=== PATIENT | female | born 1945 | race Caucasian/White ===

== ENCOUNTER 2019-12-23 06:42 | Observation (INO) ==
--- NOTE | 2019-11-20 15:22 | PAT Medication Instructions ---
Medication Instructions Date of Service November 20, 2019 Home Medications acetaminophen 1,000 mg PO HS PRN ascorbic acid (vitamin C) [Vitamin C] 500 mg PO QAM atorvastatin 20 mg PO QAM calcium carbonate [Tums] 200 mg PO BID PRN calcium carbonate-vitamin D3 [Calcium 600 + D(3)] 2 cap PO QAM cholecalciferol (vitamin D3) [Vitamin D3] 250 mcg PO QAM ibuprofen 600 mg PO QAM PRN multivitamin 1 tab PO QAM vitamin E 400 unit PO QAM ASK your surgeon for instructions ibuprofen 600 mg PO QAM PRN STOP taking 2 weeks before surgery (or as soon as possible if surgery is within 2 weeks) vitamin E 400 unit PO QAM DO NOT take the morning of surgery ascorbic acid (vitamin C) [Vitamin C] 500 mg PO QAM calcium carbonate [Tums] 200 mg PO BID PRN calcium carbonate-vitamin D3 [Calcium 600 + D(3)] 2 cap PO QAM cholecalciferol (vitamin D3) [Vitamin D3] 250 mcg PO QAM multivitamin 1 tab PO QAM Take morning of surgery With a small sip of water, OTHERWISE NOTHING TO EAT OR DRINK AFTER MIDNIGHT: atorvastatin 20 mg PO QAM Take evening before surgery acetaminophen 1,000 mg PO HS PRN (if needed) calcium carbonate [Tums] 200 mg PO BID PRN (if needed) Other Notes If you have any questions please call us at [phone] or [phone] or [phone] or [phone]
--- NOTE | 2019-11-24 08:19 | Anesthesiology Consultation ---
Date of Service November 24, 2019 Assessment & Plan (1) Encounter for pre-operative examination: Chart Review Chart Review: Acceptable Risk for Surgery (pending preop Covid testing ) and Patient seen in Pre Admission Testing Per PAT appt on 11/24/19, patient denies any recent travel. No known Covid positive contacts or Covid related symptoms. Per patient- scheduled 12/18/19 for Covid testing. Educated on importance of self quarantining, social distancing and wearing mask in public both for the patient and household contacts. Teaching & Discussion Pre-Anesthesia Teaching/Discussion Notes: Instructed NPO after midnight before surgery,except medications with 15 cc of water. Medication instructions provided according to the PAT guidelines. History Surgery Operation Date: 12/23/19 12:30 Proposed Procedures p Left Total Knee Arthroplasty - Ronn Turcios MD Height/Weight Height: 5 ft 2.5 in Weight: 68 kg Allergies Allergy/AdvReac Type Severity Reaction Status Date / Time No Known Allergies Allergy Mild Verified 11/17/19 09:41 Medications Home Medications Medication Instructions Recorded Confirmed Last Taken acetaminophen 1,000 mg PO HS PRN 11/17/19 11/17/19 Unknown ascorbic acid (vitamin C) [Vitamin 500 mg PO QAM 11/17/19 11/17/19 Unknown C] atorvastatin 20 mg PO QAM 11/17/19 11/17/19 Unknown calcium carbonate [Tums] 200 mg PO BID PRN 11/17/19 11/17/19 Unknown calcium carbonate-vitamin D3 2 cap PO QAM 11/17/19 11/17/19 Unknown [Calcium 600 + D(3)] cholecalciferol (vitamin D3) 250 mcg PO QAM 11/17/19 11/17/19 Unknown [Vitamin D3] ibuprofen 600 mg PO QAM PRN 11/17/19 11/17/19 Unknown multivitamin 1 tab PO QAM 11/17/19 11/17/19 Unknown vitamin E 400 unit PO QAM 11/17/19 11/17/19 Unknown Past Medical History Medical History Elevated cholesterol Controlled with statin Sciatica Right -- follows with Dr Mandel ([place]) SVT (supraventricular tachycardia) History of SVT- s/p 2004- no issues since. Does not need to follow with cardio. Exercise / Class Metabolic Activity II 4-5 Yardwork/Stairs/Walk up hill (one flight of stairs - no chest pain or SOB) Past Family History Family History Other Coronary heart disease Diabetes Leukemia No family history of adverse response to anesthesia Past Surgical History Surgical History H/O cardiac radiofrequency ablation 2004 H/O: hysterectomy [facility] with BSO History of appendectomy S/P epidural steroid injection Past Anesthesia History No Hx of Anesthesia Complications and No Family Hx of Anesthesia Complications History of PONV No Hx of PONV and No Hx of Motion Sickness Social History Smoking Status: Never smoker Do You Dip or Chew Tobacco: No Hx Alcohol Use: Yes (1-2 drinks/day) Alcohol type: wine alcohol intake frequency: 0-2 drinks per day (1 glass of wine per night ) Hx Substance Use: No substance use type: does not use Review of Systems Occ reflux- diet dependent - relieved with OTC Tums Occ snoring- no witnessed apnea. No hx of sleep study Patient denies chest pain, shortness of breath, dyspnea on exertion, cough, wheezing, palpitations. No hx of seizures, stroke, SC. No hx of blood clots or blood transfusions Physical Exam Vital Signs VITALS BP 169/79 P 75 TEMP 98.0 SP02 95% RESP 16 Constitutional no acute distress ENMT Mouth: no TMJ clicking Thyromental Distance: < 3.5 Finger Breadths (3.0) Mallampati Class: II Crowns on molars Neck + thick neck (mild ); neck extension not limited Respiratory normal respiratory effort; no respiratory distress Auscultation: lungs clear to auscultation bilaterally; no wheezes Cardiovascular Rate/Rhythm: regular rate and regular rhythm Heart Sounds: no murmur Vessels: no carotid bruit Musculoskeletal Spine: no pain with cervical ROM Neurologic moves all extremities Psychiatric Orientation: alert Testing Laboratory Results 11/24/19 10:14 11/24/19 08:40 PT 10.9 Seconds (9.0-12.0) 11/24/19 10:14 INR 1.0 (0.9-1.1) 11/24/19 10:14 APTT 26.4 Seconds (21.0-31.0) 11/24/19 10:14 Blood Type B Positive 11/24/19 10:14 Antibody Screen NEGATIVE 11/24/19 10:14 Electrocardiogram Date: 11/24/19 Findings: + NSR @ (62) Normal EKG Chest X-Ray Date: 11/24/19 Findings: + NAD
--- NOTE | 2019-11-24 09:25 | XRay Report ---
XR chest Pre-admission PA/Lat CLINICAL HISTORY: Preoperative evaluation. COMPARISON STUDY: No previous studies for comparison. FINDINGS: Lung volumes are normal. Lungs are clear. There is no pneumothorax or pleural effusion. Car diac size is at the upper limits of normal. Mediastinal contours are normal. There is no evidence for pulmonary edema. IMPRESSION: No acute cardiopulmonary findings. ACT 112: Negative or not required by law. Electronically signed by: Caden Connolly M.D. 11/24/2019 9:23 AM
[2019-11-24 10:40] LABS: Basophils # (auto) 0.05 K/uL (0-0.2); Eosinophils # (auto) 0.06 K/uL (0-0.5); Eosinophils % (auto) 1.2 %; Hematocrit (blood only) 40.7 % (37-47); Hemoglobin 13.8 g/dL (12.0-16.0); Immature Granulocytes # (auto) 0.01 K/uL (0.00-0.02); Immature Granulocytes % (auto) 0.2 %; Lymphocytes # (auto) 1.59 K/uL (1.2-3.4); Lymphocytes % (auto) 32.3 %; Mean Corpuscular Hemoglobin 32.4 pg (25-34); Mean Corpuscular Hgb Conc 33.9 g/dL (32-36); Mean Corpuscular Volume 95.5 fL (80-100); Mean Platelet Volume 11.6 fL (7.4-10.4); Monocytes # (auto) 0.49 K/uL (0.11-0.59); Monocytes % (auto) 9.9 %; Neutrophils # (auto) 2.73 K/uL (1.4-6.5); Neutrophils % (auto) 55.4 %; Platelet Count 219 K/uL (130-400); RDW Coefficient of Variation 12.6 % (11.5-14.5); RDW Standard Deviation 43.8 fL (36.4-46.3); Red Blood Count 4.26 M/uL (4.2-5.4); White Blood Count 4.93 K/uL (4.8-10.8)
[2019-11-24 10:47] LABS: BUN Creatinine Ratio 20.2 (10-20); Calcium 9.6 mg/dl (8.5-10.1); Creatinine Clr Calc Pharmacy 66.5 ml/min; Est GFR (African American) 100.3; Est GFR (Non-African American) 86.6; Potassium 3.8 mmol/L (3.5-5.1)
[2019-11-24 11:02] LABS: Partial Thromboplastin Ratio 0.9; Partial Thromboplastin Time 26.4 Seconds (21.0-31.0); Prothrombin Time 10.9 Seconds (9.0-12.0)
--- NOTE | 2019-11-24 17:05 | Electrocardiogram Report ---
Test Reason : Blood Pressure : / mmHG Vent. Rate : 062 BPM Atrial Rate : 062 BPM P-R Int : 160 ms QRS Dur : 078 ms QT Int : 418 ms P-R-T Axes : 050 044 049 degrees QTc Int : 424 ms Normal sinus rhythm Normal ECG When compared with ECG of 22-APR-2007 10:57, No significant change was found Confirmed by Brennon Hyman ([id number]) on 11/24/2019 5:05:06 PM Referred By: Ronn Turcios Confirmed By:Christian Hyman
--- NOTE | 2019-12-20 11:21 | History and Physical Report ---
DATE OF ADMISSION: 12/23/2019 CHIEF COMPLAINT: Persistent left knee pain and discomfort. HISTORY OF PRESENT ILLNESS: A 74-year-old female who I have been following for years for left knee pain and degenerative joint disease. She has been through extensive conservative treatment over the years, which has just become less successful. Last shot did not really help her much at all. Pain is mostly medial, but some global pain. It hurts her all the time. The more she walks, the more it hurts. She cannot walk more than a couple blocks before she feels like she needs to stop and get her weight off her leg. She does have some nighttime discomfort. She now would like to have her knee fixed. PAST MEDICAL HISTORY: 1. Elevated cholesterol. 2. Low back pain/sciatica. PAST SURGICAL HISTORY: Include: 1. Hysterectomy. 2. Exploratory laparotomy. 3. Appendectomy. 4. Cardiac ablation for AFib. ALLERGIES: None. CURRENT MEDICATIONS: Include: 1. Daily vitamin. 2. Calcium. 3. Cholesterol medicine. 4. Lipitor. 5. Tylenol. 6. Advil. SOCIAL HISTORY: A 74-year-old female. She lives in [place]. Drinks 7 drinks per week. Does not smoke. FAMILY HISTORY: Noncontributory. REVIEW OF HISTORY: Negative for diabetes, neurologic problem, vascular problems or bleeding disorders. No chest pain or shortness of breath. No history of DVT or PE. Does have this history of atrial fibrillation, but had a cardiac ablation and in sinus rhythm. PHYSICAL EXAMINATION: GENERAL: Reveals a pleasant, middle-aged female. Looks to be in excellent health. HEENT: Benign. NECK: Supple, no lymphadenopathy. LUNGS: Clear to auscultation. HEART: Has a regular rate and rhythm. ABDOMEN: Soft, nontender, nondistended. EXTREMITIES: Grossly neurovascularly intact except as follows. Examination of the left knee reveals the patient walks with a slight bit of a limp. She has got varus alignment to her knee with a varus thrust with weightbearing. She has got bony hypertrophy medially. Range of motion about 5 degrees short of full extension to 120 degrees of flexion. There is no instability. No pain with hip motion. X-RAYS: X-rays of the left knee were reviewed. It shows advanced left knee DJD. She has got complete loss of medial joint space. She has got osteophytes off the medial femoral condyle and medial tibial plateau. She has a little bit of tibial femoral subluxation. Diffuse osteopenia. ASSESSMENT: A 74-year-old white female with longstanding left knee pain and degenerative joint disease. She has failed conservative treatment and would like to have her left knee replaced. PLAN: We will take her to the operating room and do a left total knee replacement. The risks and benefits of this procedure were explained to the patient including but not limited to DVT, PE, , infection, neurological injury, vascular injury, bleeding problem, pain, limited range of motion, stiffness, failure to relieve symptoms, incomplete relief of symptoms, need for further surgery in future, fracture, leg length inequality, nerve palsy, etc. The patient understands and desires to proceed. Informed consent was obtained. She has held her NSAID 2 weeks preop. She is planning using [email or web address] for therapy upon discharge.
[~2019-12-23 06:42] MED LIST: ACETAMINOPHEN 500 MG TAB PO SCH; BUPIVACAINE 0.5 % 5 MG/1 ML PF 10ML VIAL ONE; GABAPENTIN 300 MG CAP PO SCH; LR 500ML BOLUS, THEN 15ML/HR IV SCH; LR 60ML/HR IV SCH; METOCLOPRAMIDE HCL 10 MG TABLET PO SCH; TRANEXAMIC ACID 1,000 MG **IV Intra-op IV SCH; ceFAZolin 1000MG 1,000 MG/7.5 ML SYR IV SCH
--- NOTE | 2019-12-23 06:50 | History & Physical Bridge Note ---
Date of Service December 23, 2019 History & Physical Bridge Note I have examined the patient, reviewed the History & Physical and in the interval since the performance of the History & Physical I have noted the following changes of clinical significance: no changes noted
[2019-12-23] MEDS ORDERED: FAMOTIDINE 20 MG TAB ONE (07:01)
[2019-12-23] MEDS ORDERED: MIDAZOLAM HCL 1 MG/ML 2ML VIAL ONE (07:04)
[2019-12-23] MEDS ORDERED: fentaNYL citrate 100 MCG/2 ML VIAL ONE (07:04)
[2019-12-23] MEDS ORDERED: ONDANSETRON INJ 2 MG/ML 2 ML VIAL IV PRN ×2 (08:23→12:37)
[2019-12-23] MEDS ORDERED: ePHEDrine sulfate 50 MG/ML AMP IV PRN (08:23)
[2019-12-23] MEDS ORDERED: fentaNYL citrate 100 MCG/2 ML VIAL IV PRN (08:23)
[2019-12-23] MEDS ORDERED: ATROPINE SULFATE 0.1 MG/ML 10ML SYR IV PRN (08:23)
[2019-12-23] MEDS ORDERED: SODIUM CHLORIDE 0.9% PF 50 ML VIAL ONE (08:55)
[2019-12-23] MEDS ORDERED: BUPIVACAINE LIPOSOME 1.3% 266 MG/20 ML VIAL ONE (08:55)
[2019-12-23] MEDS ORDERED: BACITRACIN INJ 50,000 UNIT VIAL ONE (08:55)
[2019-12-23] MEDS ORDERED: EPINEPHrine INJ 1 MG/ML AMP ONE (08:56)
[2019-12-23] MEDS ORDERED: BUPIVACAINE 0.25% 30 ML VIAL ONE (08:56)
[2019-12-23] MEDS ORDERED: PROPOFOL IV EMULSION 10 MG/ML 20 ML VIAL IV ONE (09:30)
[2019-12-23] MEDS ORDERED: ePHEDrine sulfate 50 MG/ML AMP ONE (10:10)
--- NOTE | 2019-12-23 10:59 | Post Operative Brief Note ---
PG Immediate Post Op with CF Date of Surgery December 23, 2019 Pre & Post Diagnosis Operation Date: 12/23/19 08:50 Pre-Op Diagnosis: Left Knee Degenerative Joint Disease; Knee Pain Post-Op Diagnosis: Left Knee Degenerative Joint Disease; Knee Pain I identified the patient and participated in the time-out.: Yes Procedure Operation Date: 12/23/19 08:50 Actual Procedures p Left Total Knee Replacement(Left) - Ronn Turcios MD Surgeon Ronn Turcios MD Ecommerce Analyst Barby, PAC Estimated Blood Loss 50 Findings Consistent with Post-Op Diagnosis Fluids 500 cc Specimens Specimen Description: A. Left Knee Bone and Tissue Drains Chu Catheter Anesthesia Type Spinal MAC Complications none Disposition Accompanied Patient To Recovery: No Disposition: Recovery Room
--- NOTE | 2019-12-23 11:09 | Operative Report ---
Post Operative Report Pre & Post Diagnosis Operation Date: 12/23/19 08:50 Pre-Op Diagnosis: Left Knee Degenerative Joint Disease; Knee Pain Post-Op Diagnosis: Left Knee Degenerative Joint Disease; Knee Pain I identified the patient and participated in the time-out.: Yes Procedure Operation Date: 12/23/19 08:50 Actual Procedures p Left Total Knee Replacement(Left) - Ronn Turcios MD Surgeon Ronn Turcios MD Salesforce Administrator Barby, PAC Estimated Blood Loss 50 Findings Consistent with Post-Op Diagnosis Operative findings revealed advanced left knee DJD with extensive grade 4 [id number] disease and eburnation of the medial femoral condyle medial tibial plateau. She had significant osteophytes in the medial compartment. Her lateral and patellofemoral compartments were pretty well-preserved. She did have a fixed varus deformity to her knee. Moderate sized knee joint effusion. Fluids 500. Cc. Specimens Left knee sent for pathology. Drains None. Anesthesia Type Spinal MAC Complications none Disposition Accompanied Patient To Recovery: No Disposition: Recovery Room Indications Patient is a 74-year-old very active female is had a long history of left knee pain discomfort Gretz gradually gotten worse over time. I have been treating her for years with injections and oral medicines which became less effective over time. X-rays show advanced left knee DJD. She elected proceed with surgical treatment. Description of Procedure Operative implants consisted of: 1. Biomet Vanguard size 62.5 left posterior stabilized femoral component. 2. Biomet size 67 tibial tray. 3. 10 mm posterior stabilized polyethylene insert. 4. 31 x 8 all polypatella. The patient was taken to the operating room identified and placed on the operating table supine position protectors were properly padded. IV antibiotics tried by anesthesia team. Spinal anesthetic and abductor canal block had been provided in the holding area. Chu catheter was placed in sterile fashion. A left thigh turn was then placed. Left lower extremity was then prepped and draped in usual sterile fashion. The left leg was elevated exsanguinated with use of an Esmarch interspace at 3 mmHg. An anterior approach to the left knee was then performed to longitudinal incision centered over the patella. Sharp dissection was got through subcutaneous tissue down the extensor mechanism. A medial parapatellar arthrotomy incision was made. Some subperiosteal dissection was carried out medially. The fat pad was resected from each patella tendon. Lateral patellofemoral ligament was released. The patella was subluxated laterally and the knee was flexed. The osteophytes were taken off the distal femur. The ACL and PCL were then released from the distal femur and the tibia subluxated anteriorly. The external tibial alignment jig was then placed in the interface the tibia and adjusted 14 mm medially. Proximal tibial cut was made remove about 2 mm of bone from the most deficient aspect medial tibial plateau. Some osteophytes taken off medial and posterior medially. The tibia was sized to a size 67. Attention drawn the femur. The distal femur was then with a sharp drop with intramedullary canal was suction. A left 5 degree valgus cutting guide was placed. The distal femoral cutting block was pinned in place. Distal femoral cut was made to take an additional 3 mm of bone off distal femur. Femur was then sized to a size 62.5. We did downsize this almost an entire size. The AP cutting block was pinned parallel to the epicondylar axis which was 5 degrees of external rotation. The anterior cut, anterior chamfer, posterior cut, posterior chamfer cuts were made. Box cutting guide was placed in just slight lateral and the box cut was made. The knee was flexed. The remnants of the medial lateral menisci were excised. The osteophytes were taken off the posterior aspect the femur. A trial femoral component was placed. The tibial tray was pinned in maximum external rotation and the drill and stem punch were used to create defect in the proximal tibia for the tibial tray. Knee was then trialed and the 10 mm insert fit most appropriately. Attention drawn the patella. The patella was cleaned of all soft tissues. Patella thickness measured 20 mm in thickness was cut down to 12. Was sized to a size 31 patella. The lug holes were drilled for the 31 patella. The lateral osteophyte was removed. Patella button was placed. Knee was taken through range of motion patella tracked nicely with no thumbs test. Attention drawn to placing the permanent components. All trial components were removed. Bone plug was placed in the distal femur limit blood loss. A double batch [place] G cement was mixed. A Biomet Vanguard size 62.5 left posterior stabilized femoral component, size 67 tibial tray, a 10 mm posterior stabilized polyethylene insert, and a 31 x 8 all polypatella then cemented in place. The knee was brought out into full extension total cement hardened. Final cement check was then performed. The pericapsular tissues were injected with total 100 cc of combination of 20 cc of Exparel, 30 cc normal saline, 50 cc of quarter percent Marcaine with epinephrine. Patient did receive 1 g tranexamic acid. The tourniquet was then let down for final tourniquet time 52 minutes. Hemostasis reduced electrocautery. The extensor mechanism closed with combination 1 PDS suture #1 Vicryl suture in [id number] fashion. The extensor mechanism checked found to be intact the subcutaneous tissue then closed with 2 Dexon suture in a buried interrupted fashion skin was closed skin vega. Leg was then cleaned dried a sterile dressed composed Xeroform, 4 x 4's, sterile cast padding, Wilmer bandage were applied. Patient then transferred to the recovery room in stable condition. Patient tolerated the procedure well and there were no complications. Blaise Dior, my physician bookkeeper assistant, was present for the entire procedure. His assistance was essential and required for appropriate patient positioning, prepping and draping, surgical exposure, performing the technical details of the operation, placement the implants, closure of the wound, and placement of the sterile bandage. I attest to the content of the Intraoperative Record and any orders documented therein. Any exceptions are noted below.
--- NOTE | 2019-12-23 11:21 | XRay Report ---
LEFT KNEE 2 VIEWS History: Left total knee arthroplasty. Degenerative arthritis. Postop. FINDINGS: The patient is status post a left total knee arthroplasty. The hardware is intact. No fract ure or dislocation. Skin vega are in place. IMPRESSION: Left total knee arthroplasty. No evidence for hardware complication. ACT 112: Negative or not required by law. Electronically signed by: Nehemias Morris M.D. 12/23/2019 11:20 AM
--- NOTE | 2019-12-23 11:51 | Anesthesiology Progress Note ---
Date of Service December 23, 2019 Anesthesia Post Procedure Vital Signs Vital Signs: Temp Pulse Pulse Resp BP BP Pulse Ox 12/23/19 11:40 98.4 F 64 16 138/64 95 12/23/19 11:30 98.4 F 64 16 142/67 H 95 12/23/19 11:20 62 16 136/62 97 12/23/19 11:10 63 16 121/60 100 12/23/19 11:03 98.2 F 67 16 131/62 100 12/23/19 08:04 64 20 168/89 H 98 12/23/19 07:15 98.2 F 72 16 172/88 H 99 Pain Intensity Lower Back: Pain Intensity: 8 Left Leg: Pain Intensity: 6 Transfer of Care Handoff Completed per policy Notes Mental Status: alert / awake / arousable and participated in evaluation Patient Amnestic to Procedure: Yes Nausea / Vomiting: adequately controlled Pain: adequately controlled Airway Patency, RR, SpO2: stable & adequate BP & HR: stable & adequate Hydration State: stable & adequate Neuraxial Anesthesia: was administered and sensory block is resolving Anesthetic Complications: no major complications apparent and Pt Satisfied with anesthetic care
[2019-12-23] MEDS ORDERED: NALOXONE HCL 0.4 MG/1 ML VIAL/CARP IV PRN (12:37)
[2019-12-23] MEDS ORDERED: bisacodyL 10 MG SUPP PR PRN (12:37)
[2019-12-23] MEDS ORDERED: METOCLOPRAMIDE HCL INJ 5 MG/ML 2 ML VIAL IV PRN (12:37)
[2019-12-23] MEDS ORDERED: HYDROmorphone INJ 0.5 MG/0.5 ML SYR IV PRN (12:37)
[2019-12-23] MEDS ORDERED: MAGNESIUM HYDROXIDE SUSP 30 ML UDC PO PRN (12:37)
[2019-12-23] MEDS ORDERED: ALUMINUM/MAGNESIUM SUSP 30 ML UDC PO PRN (12:37)
[2019-12-23] MEDS ORDERED: CALCIUM CARBONATE 500 MG CHEWABLE TAB PO PRN (12:37)
--- NOTE | 2019-12-23 13:43 | Progress Notes ---
DATE: 12/23/2019 SUBJECTIVE: A 74-year-old white female postop from a left knee replacement. She is doing well. Not having any pain yet. No chest pain or shortness of breath. Not feeling dizzy or lightheaded. OBJECTIVE: VITAL SIGNS: Temperature 36.9. Vital signs stable. GENERAL: Shows a pleasant elderly female. She is sitting up in bed and talking to her daughter. LUNGS: Clear to auscultation. HEART: Has a regular rate and rhythm. ABDOMEN: Soft, nontender, nondistended. EXTREMITIES: Grossly neurovascularly intact except as follows: Examination of the left lower extremity reveals the leg to be well aligned. Dressing is clean, dry and intact. She can dorsiflex and plantarflex her foot appropriately. She has got brisk refill. X-RAYS: X-rays of the left knee from recovery room were reviewed. It shows left cemented posterior stabilized total knee arthroplasty. Components looked to be in good position. No signs of problems. ASSESSMENT: A 74-year-old white female postoperative from a left knee replacement, doing well. Pain is controlled. She is neurologically intact. PLAN: 1. DVT prophylaxis including thigh-high TEDs, SCDs, and aspirin twice a day. 2. PT/OT. Weight bear as tolerated. Left total knee protocol. 3. Pain control, doing well with current pain regimen. We will have to adjust medicines as her spinal wears off. 4. IV antibiotics x24 hours. 5. Disposition: She is planning to be discharged to home with some home health once adequately recovered and medically stable.
[2019-12-23] MEDS: SODIUM CHLORIDE 0.9% 1000ML 1,000 ML IV SCH (13:51)
[2019-12-23] MEDS: ACETAMINOPHEN 500 MG TAB PO SCH ×2 (13:51→22:26)
[2019-12-23] MEDS: FERROUS GLUCONATE 324 MG TAB PO SCH (16:40)
[2019-12-23] MEDS ORDERED: TRANEXAMIC ACID / 0.7% NACL 1,000 MG/100 ML BAG IV SCH (17:02)
[2019-12-23] MEDS: ceFAZolin 1000MG 1,000 MG/7.5 ML SYR IV SCH (18:48)
[2019-12-23] MEDS: KETOROLAC TROMETHAMINE 15 MG/ML VIAL IV SCH ×2 (18:48→23:38)
[2019-12-23] MEDS: DOCUSATE SODIUM 100 MG CAP PO SCH (22:26)
[2019-12-23] MEDS: SENNA 8.6 MG TAB PO SCH (22:26)
[2019-12-23] MEDS: ASPIRIN 81 MG ECTAB PO SCH (22:26)
[2019-12-24] MEDS: SODIUM CHLORIDE 0.9% 1000ML 1,000 ML IV SCH (00:12)
[2019-12-24] MEDS: ceFAZolin 1000MG 1,000 MG/7.5 ML SYR IV SCH (02:35)
[2019-12-24] MEDS: ACETAMINOPHEN 500 MG TAB PO SCH ×4 (05:46→21:28)
[2019-12-24] MEDS: KETOROLAC TROMETHAMINE 15 MG/ML VIAL IV SCH ×3 (05:46→19:50)
[2019-12-24 06:34] LABS: Hematocrit (blood only) 35.4 % (37-47); Hemoglobin 11.9 g/dL (12.0-16.0); Mean Corpuscular Hemoglobin 32.2 pg (25-34); Mean Corpuscular Hgb Conc 33.6 g/dL (32-36); Mean Corpuscular Volume 95.7 fL (80-100); Mean Platelet Volume 11.2 fL (7.4-10.4); Platelet Count 179 K/uL (130-400); RDW Coefficient of Variation 12.8 % (11.5-14.5); RDW Standard Deviation 44.3 fL (36.4-46.3); White Blood Count 10.32 K/uL (4.8-10.8)
[2019-12-24 07:05] LABS: BUN Creatinine Ratio 16.4 (10-20); Calcium 8.4 mg/dl (8.5-10.1); Creatinine Clr Calc Pharmacy 75.4 ml/min; Est GFR (African American) 104.4; Est GFR (Non-African American) 90.1; Potassium 3.5 mmol/L (3.5-5.1)
[2019-12-24] MEDS: TOCOPHERYL, DL-ALPHA 400 UNITS CAP PO SCH (08:59)
[2019-12-24] MEDS: CALCIUM 600MG + VIT D 400 IU TAB PO SCH (08:59)
[2019-12-24] MEDS: FERROUS GLUCONATE 324 MG TAB PO SCH ×2 (08:59→17:34)
[2019-12-24] MEDS: ATORVASTATIN 20 MG TAB PO SCH (08:59)
[2019-12-24] MEDS: MULTIVITAMIN TAB PO SCH (08:59)
[2019-12-24] MEDS: DOCUSATE SODIUM 100 MG CAP PO SCH ×2 (08:59→21:28)
[2019-12-24] MEDS: CHOLECALCIFEROL 400 UNITS 10 MCG TAB PO SCH (09:00)
[2019-12-24] MEDS: ASCORBIC ACID 500 MG TAB PO SCH (09:00)
[2019-12-24] MEDS: ASPIRIN 81 MG ECTAB PO SCH ×2 (09:00→21:28)
[2019-12-24] MEDS ORDERED: MULTIVITAMIN TAB PO SCH (09:00)
--- NOTE | 2019-12-24 15:32 | Progress Notes ---
DATE: 12/24/2019 SUBJECTIVE: A 74-year-old white female postoperative day 1 from a left knee replacement. She had a pretty rough morning. She is doing better now. No chest pain or shortness of breath. She was kind of intended with a bunch of visitors and a lot of therapy and was pretty painful. No chest pain or shortness of breath. Not feeling dizzy or lightheaded. OBJECTIVE: VITAL SIGNS: Temperature 36.8. Vital signs stable. GENERAL: Shows a pleasant elderly female. She is sitting up in bed, looks pretty comfortable currently. EXTREMITIES: Examination of the left leg reveals the dressing to be clean, dry and intact. Leg is well aligned. She can dorsiflex and plantarflex her foot appropriately. LABORATORY DATA: Hemoglobin 11.9. Hematocrit 35.4. Electrolytes are stable. ASSESSMENT: A 74-year-old female postop day 1 from left knee replacement, doing pretty well. Pretty painful last night and this morning but doing better. PLAN: 1. DVT prophylaxis including thigh-high TEDs, SCDs, and aspirin twice a day. 2. PT/OT. Weight bear as tolerated. Left total knee protocol. 3. Pain control, doing okay with current pain regimen. 4. Disposition: Plan to discharge to home with some home health once adequately recovered and medically stable.
[2019-12-24] MEDS: traMADol HCL 50 MG TABLET PO PRN ×2 (15:53→22:27)
[2019-12-24] MEDS: SENNA 8.6 MG TAB PO SCH (21:28)
[2019-12-25] MEDS: KETOROLAC TROMETHAMINE 15 MG/ML VIAL IV SCH ×3 (00:30→11:59)
[2019-12-25] MEDS: ACETAMINOPHEN 500 MG TAB PO SCH ×2 (05:24→13:46)
[2019-12-25] MEDS: MULTIVITAMIN TAB PO SCH (07:35)
[2019-12-25] MEDS: DOCUSATE SODIUM 100 MG CAP PO SCH (07:35)
[2019-12-25] MEDS: traMADol HCL 50 MG TABLET PO PRN (07:35)
[2019-12-25] MEDS: CALCIUM 600MG + VIT D 400 IU TAB PO SCH (07:35)
[2019-12-25] MEDS: CHOLECALCIFEROL 400 UNITS 10 MCG TAB PO SCH (07:36)
[2019-12-25] MEDS: ASPIRIN 81 MG ECTAB PO SCH (07:36)
[2019-12-25] MEDS: ASCORBIC ACID 500 MG TAB PO SCH (07:36)
[2019-12-25] MEDS: TOCOPHERYL, DL-ALPHA 400 UNITS CAP PO SCH (07:36)
[2019-12-25] MEDS: ATORVASTATIN 20 MG TAB PO SCH (07:36)
[2019-12-25] MEDS: FERROUS GLUCONATE 324 MG TAB PO SCH (07:39)
--- NOTE | 2019-12-25 08:36 | Progress Notes ---
DATE: 12/25/2019 SUBJECTIVE: A 74-year-old white female postop day 2 from left knee replacement. She is doing much better today. Had a better night last night. Pain is controlled. No chest pain or shortness of breath. Not feeling dizzy or lightheaded. OBJECTIVE: VITAL SIGNS: Temperature 36.7. Vital signs stable. GENERAL: Shows a pleasant elderly female. She is lying in bed, looks pretty comfortable this morning. EXTREMITIES: Examination of the left leg reveals the leg to be well aligned. Dressing is clean, dry and intact. She can dorsiflex and plantarflex her foot appropriately. Calf is soft and supple. ASSESSMENT: A 74-year-old white female postop day 2 from left knee replacement, doing reasonably well. Pain is controlled. PLAN: 1. DVT prophylaxis including thigh-high TEDs, SCDs, and aspirin twice a day. 2. PT/OT. Weight bear as tolerated. Left total knee protocol. 3. Pain control, doing well with current pain regimen. 4. Disposition: Plan to discharge to home with some home health later today.
--- NOTE | 2019-12-29 15:08 | Discharge Summary ---
Date of Service December 29, 2019 Admission HPI Per Admitting Provider Documented in the H & P Admission Exam (Per Admitting) Constitutional Documented in the H & P Discharge Data Consultations 12/23/19 12:37 Consult Case Management - Discharge Planning Routine Procedures Performed Operation Date: 12/23/19 08:50 Actual Procedures p Left Total Knee Replacement(Left) - Ronn Turcios MD Hospital Course (1) History of total left knee replacement: This patient is a 74 year old female admitted on 12/23/19 and underwent total knee arthroplasty. She tolerated the procedure well and there were no complications. Transferred to the PACU post op and later to the orthopedic floor for further care. She was given ancef for antibiotic prophylaxis. She was also given ARIELLE stockings, SCDs, and aspirin for DVT prophylaxis. Hemoglobin, hematocrit, and vital signs were monitored during her hospital stay and remained stable. Did not require any blood transfusions. There were no complications during her hospital stay. By post op day #2 the patient was tolerating a regular diet, pain was reasonably controlled with oral pain medicine, and she was participating in physical therapy. On post op day #2 the patient was discharged home and set up with home health care. She was given printed discharge instructions including prescriptions for extra strength tylenol, aspirin, and tramadol. Continue physical therapy, weight bearing as tolerated. Continue ARIELLE stockings. Follow up approximately 2 weeks post op or sooner if there are problems or concerns. Coding Level of Care Code None Diagnoses History of total left knee replacement Z96.652
== END 2019-12-25 14:49 | disposition home health service (06) ==
LOC: ASU 06:42 → 3E 06:42

== ENCOUNTER 2024-01-09 09:53 | Inpatient (IN) ==
[2024-01-09 11:12] LABS: Hemoglobin 9.7 g/dl (12.0-16.0); Mean Corpuscular Hemoglobin 34.2 pg (25.0-34.0); Mean Corpuscular Hgb Conc 33.4 g/dL (32.0-36.0); Mean Corpuscular Volume 102.1 fL (80.0-100.0); Mean Platelet Volume 11.8 fL (9.4-12.4); Platelet Count 102 K/uL (130-400); RDW Coefficient of Variation 17.5 % (11.5-14.5); RDW Standard Deviation 64.5 fL (36.4-46.3); Red Blood Count 2.84 M/uL (4.20-5.40); White Blood Count 2.92 K/ul (4.8-10.8)
[2024-01-09 11:15] LABS: Alanine Aminotransferase 22 U/L (7-52); Albumin Level 3.9 gm/dl (3.4-5.0); Alkaline Phosphatase 60 U/L (34-104); Anion Gap 8 (3-11); Aspartate Aminotransferase 24 U/L (13-39); BUN Creatinine Ratio 23.4 (10-20); Bilirubin,Total 0.5 mg/dl (0.2-1.0); Blood Urea Nitrogen 15 mg/dl (6-23); Calcium 9.2 mg/dl (8.6-10.3); Carbon Dioxide 28 mmol/L (21-32); Chloride 99 mmol/L (98-107); Globulin 3.9 gm/dl (2.5-4.0); Glucose 172 mg/dl (70-99(Fasting)); Magnesium 2.2 mg/dl (1.7-2.4); Potassium 4.2 mmol/L (3.5-5.1); Sodium 135 mmol/L (136-145); Total Protein 7.8 gm/dl (6.0-8.3)
[2024-01-09 11:17] LABS: Partial Thromboplastin Time 28 Seconds (21-31); Prothrombin Time 11.3 Seconds (9.0-12.0)
[2024-01-09 11:19] LABS: Troponin I High Sensitivity 8.6 pg/ml (0-14)
--- NOTE | 2024-01-09 11:50 | XRay Report ---
XR chest 1V not portable HISTORY: 78 years-old Female Sepsis COMPARISON: 11/24/2019 TECHNIQUE: PA view of the chest FINDINGS: Cardiac silhouette is enlarged. Mild right hemidiaphragmatic elevation. No pneumothorax, pleural effu connor or airspace consolidation. Degenerative changes of the shoulders and spine. IMPRESSION: No acute process. ACT 112: Negative or not required by law. The above report was generated using voice recognition software. It may contain grammatical, syntax o r spelling errors. Electronically signed by: Mitesh Ramos M.D. 01/09/2024 11:48 AM
--- NOTE | 2024-01-09 11:56 | Ultrasound Report ---
US venous doppler LE RT HISTORY: 78 years-old Female RLE CELLULTITIS acute pain and swelling of the right lower leg COMPARISON: None TECHNIQUE: Multiple real-time sonographic images of the right lower extremity deep venous structures were obtained assessing grayscale appearance, color and spectral flow. FINDINGS: Normal flow, compressibility, phasicity and augmentation. No fluid collections. IMPRESSION: No sonographic evidence of deep venous thrombosis. ACT 112: Negative or not required by law. The above report was generated using voice recognition software. It may contain grammatical, syntax o r spelling errors. Electronically signed by: Mitesh Ramos M.D. 01/09/2024 11:55 AM
[2024-01-09 11:57] LABS: ALC (manual) 1.55 K/uL (1.2-3.4); Lymphocytes # (manual) 0.93 K/uL (1.2-3.4); Lymphocytes % (manual) 32 %; Monocytes # (manual) 0.88 K/uL (0.11-0.59); Monocytes % (manual) 30 %; Neutrophils % (manual) 17 %; Reactive Lymphocytes # (manual) 0.61 K/uL; Reactive Lymphocytes % (manual) 21 %
--- NOTE | 2024-01-09 12:26 | Emergency Department Note ---
Impression & Plan Cellulitis of right lower extremity, Failure of outpatient treatment, Pancytopenia ED Provider Note CHIEF COMPLAINT: Right lower leg pain, redness and swelling x 1 week HISTORY OF PRESENT ILLNESS: Patient is a 78-year-old female with past medical history significant for dyslipidemia, anxiety, depression, peripheral neuropathy, who presents to the emergency department for evaluation of "cellulitis" of the right lower leg. Patient provides the history. She states that last Sunday, 8 days ago, she developed some soreness and swelling in the right calf. There was some mild redness. She went to [facility] last Sunday, 7 days ago. They did an ultrasound of the right lower extremity which was negative for DVT. She was diagnosed with pain in the leg. They did not think that her presentation was consistent with cellulitis so she was not started on any antibiotics. She saw her primary care provider, Dr. Cadr on Sunday 4 days ago. He started her on cephalexin 500 mg twice daily. She has had 4 full days of the antibiotics and she is not getting any better. She states that the redness has not spread necessarily, but she thinks that it is darker and more warm to the touch. She also notes malaise, fatigue and anorexia. She has not documented any fevers. No other recent antibiotic use. She has had a few episodes of cellulitis, on her face and on her hand, but these were both caused by an insect bite. There was no known injury to the right lower leg prior to the onset of her symptoms last week although daughter notes that she was outside doing some yard work. REVIEW OF SYSTEMS: Review of systems as per HPI. All other systems reviewed were negative. 10 systems reviewed. PMH: External medical records are reviewed and summarized as above/below. See Problem List. SOCIAL HISTORY: Patient lives at home. PHYSICAL EXAM: Vital Signs: Reviewed Nurse's notes. CONSTITUTIONAL: Pleasant, well-appearing 78-year-old female in no acute distress laying on the gurney. Family is at the bedside. EYES: Pupils equal, round, reactive to light and accommodation. EOMs intact without nystagmus. Sclera are anicteric. CARDIOVASCULAR: Regular rate and rhythm. RESPIRATORY: Breath sounds equal and clear to auscultation. MUSCULOSKELETAL: Examination of the right lower extremity note cellulitic changes on the medial right lower leg/ankle. Skin is intact. No blistering noted. No drainage or discharge present. The right ankle and right knee are nontender to palpation. Calf is soft and nontender. No palpable cords. No pitting edema. No lymphangitic streaking noted. LYMPH: No lymphadenopathy. EMERGENCY DEPARTMENT COURSE: The patient was seen and assessed as above. External medical records were reviewed. She presents to the emergency department for evaluation of cellulitis of the right lower extremity not improving on antibiotics. Critical pathways were implemented by nursing staff from triage, including CBC with differential, coags, CMP, lactate, procalcitonin and urinalysis. EKG, chest x-ray and right lower extremity ultrasound were also performed. She was given ceftriaxone IV after my assessment. Diagnostics, as interpreted by me: Laboratory studies: CBC notes pancytopenia, white count is 2900, with a total neutrophil count of 0.5, H&H 9.7 and 29.0, platelet count 102,000. Coags are normal. Electrolytes within normal limits. No KULWANT. No transaminitis. Lactate and Pro-Jorge are not elevated. ECG: Normal sinus rhythm 80 bpm. No acute ischemic changes. Incomplete right bundle branch block noted, new from 2019. Cardiac Monitoring: Cardiac monitoring: An order was placed for continuous cardiac monitoring. The monitor shows a NSR at a rate of 86 per my interpretation. Imaging studies: Ultrasound of the right lower extremity notes no DVT. Chest x- ray clear, no infiltrate or consolidation. I did obtain CBC from [facility] [facility], dated 03/31/2023, noting a white count of 3700 at that time. H&H and platelet counts were normal. All laboratory and diagnostic imaging studies were reviewed with Dr. Verde, discussed with the patient and her family at length. She has failed outpatient management of the right lower extremity cellulitis, and do feel that she warrants admission for IV treatment. Also concerned about the pancytopenia which seems to be new, evolving, and not evaluated to date. I did discuss inpatient care with the patient and her family and they were agreeable. Patient reviewed with the ED case hardener call pelon" police would be grossly the hospitalist service. Differential diagnosis: Cellulitis, DVT, superficial thrombophlebitis, sepsis, among others. Past Med/Surg History Problem List (Updated 01/09/24 @ 16:50 by Vladimir Olivier) Pancytopenia (Acute) Cellulitis of right lower extremity (Acute) Failure of outpatient treatment (Acute) Cellulitis of right lower extremity Biceps tendinitis of right shoulder Lumbar spondylosis 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 Does not need to follow with cardio. Sciatica Right -- follows with Dr Mandel ([place]) Elevated cholesterol Controlled with statin Surgical History S/P epidural steroid injection History of appendectomy H/O cardiac radiofrequency ablation 2004 H/O: hysterectomy MONICA with BSO Family History Other Coronary heart disease Diabetes Leukemia No family history of adverse response to anesthesia Social History Smoking Status: Never smoker Second Hand Exposure: No; Do You Dip or Chew Tobacco: No; Hx Alcohol Use: Yes (1-2 drinks/day) Alcohol type: wine Hx Substance Use: No Preferred Language: Beninese Communication Ability: Effective Visual Impairment: No Limitations Change Control Coordinator Required: No Beliefs That Will Affect Care: None marital status: Current Living Situation: Spouse Feels Safe at Home: Yes Assistive Devices: Walker Allergies Allergies Allergy/AdvReac Type Severity Reaction Status Date / Time No Known Allergies Allergy Mild Verified 12/29/21 10:15 Home Meds Home Medications Medication Instructions Recorded Confirmed acetaminophen 500 mg tablet 500 mg PO HS PRN pain 11/17/19 01/09/24 ascorbic acid (vitamin C) 500 mg 500 mg PO QAM 11/17/19 01/09/24 tablet (Vitamin C) calcium 600 mg (as 2 cap PO QAM 11/17/19 01/09/24 carbonate)-vitamin D3 5 mcg (200 unit) capsule (Calcium 600 + D(3)) calcium carbonate (Tums) 200 mg PO BID PRN Heartburn 11/17/19 01/09/24 cholecalciferol (vitamin D3) 125 250 mcg PO QAM 11/17/19 01/09/24 mcg (5,000 unit) tablet (Vitamin D3) ibuprofen 200 mg tablet 600 mg PO QAM PRN Pain 11/17/19 01/09/24 multivitamin 1 tab PO QAM 11/17/19 01/09/24 vitamin E 400 unit tablet 400 unit PO QAM 11/17/19 01/09/24 atorvastatin 20 mg tablet 20 mg PO QAM 01/09/24 01/09/24 cephalexin 500 mg capsule 500 mg PO BID 01/09/24 01/09/24 citalopram 10 mg tablet 10 mg PO DAILY 01/09/24 01/09/24 gabapentin 100 mg capsule 100 mg PO BID 01/09/24 01/09/24 lorazepam 0.5 mg tablet 0.25 - 0.5 mg PO HS PRN anxiety 01/09/24 01/09/24 Results & Data (ED) Vital Signs Vital Signs - 24 hr 01/09/24 10:01 01/09/24 11:58 01/09/24 12:00 Temperature 37.3 C Temperature Source Oral Pulse Rate 79 70 Pulse Rate [Apical] 82 Pulse Rhythm Pulse Rhythm [Apical] Pulse Strength [Apical] Normal Respiratory Rate 18 16 Respiratory Effort / Characteristics Non-Labored Spontaneous Respiratory Depth Normal Respiratory Pattern Regular Blood Pressure 122/67 Blood Pressure [Right Arm] 136/82 Blood Pressure Mean 85 Blood Pressure Mean [Right Arm] 100 Blood Pressure Position Sitting Blood Pressure Position [Right Arm] Sitting Pulse Oximetry 94 95 Oxygen Delivery Method Room Air Room Air Sepsis Recent Fever Within 48 Hours No Sepsis New/Unexplained Change in Mental Status No Sepsis Action Taken by Nursing No Action Required 01/09/24 12:12 01/09/24 12:12 01/09/24 13:00 Temperature Temperature Source Pulse Rate 75 Pulse Rate [Apical] 79 Pulse Rhythm Regular Pulse Rhythm [Apical] Regular Pulse Strength [Apical] Normal Respiratory Rate 16 16 Respiratory Effort / Characteristics Non-Labored Spontaneous Respiratory Depth Normal Respiratory Pattern Regular Blood Pressure Blood Pressure [Right Arm] 146/77 H Blood Pressure Mean Blood Pressure Mean [Right Arm] 100 Blood Pressure Position Blood Pressure Position [Right Arm] Sitting Pulse Oximetry 95 95 92 Oxygen Delivery Method Room Air Room Air Room Air Sepsis Recent Fever Within 48 Hours Sepsis New/Unexplained Change in Mental Status Sepsis Action Taken by Nursing 01/09/24 15:00 Temperature Temperature Source Pulse Rate Pulse Rate [Apical] 87 Pulse Rhythm Pulse Rhythm [Apical] Pulse Strength [Apical] Normal Respiratory Rate 16 Respiratory Effort / Characteristics Non-Labored Spontaneous Respiratory Depth Normal Respiratory Pattern Regular Blood Pressure Blood Pressure [Right Arm] Blood Pressure Mean Blood Pressure Mean [Right Arm] Blood Pressure Position Blood Pressure Position [Right Arm] Pulse Oximetry 96 Oxygen Delivery Method Room Air Sepsis Recent Fever Within 48 Hours Sepsis New/Unexplained Change in Mental Status Sepsis Action Taken by Prison Medications Current Medication List: was personally reviewed by me Laboratory Data Attestation: I reviewed the patient's lab results. 01/09/24 10:32 01/09/24 10:32 Lab Results 01/09/24 01/09/24 Range/Units 10:32 15:07 WBC 2.92 L (4.8-10.8) K/ul RBC 2.84 L (4.20-5.40) M/uL Hgb 9.7 L (12.0-16.0) g/dl Hct 29.0 L (37.0-47.0) % MCV 102.1 H (80.0-100.0) fL MCH 34.2 H (25.0-34.0) pg MCHC 33.4 (32.0-36.0) g/dL RDW Std Deviation 64.5 H (36.4-46.3) fL RDW Coeff of Patti 17.5 H (11.5-14.5) % Plt Count 102 L (130-400) K/uL MPV 11.8 (9.4-12.4) fL Neutrophils % (Manual) 17 % Lymphocytes % (Manual) 32 % Reactive Lymphs % (Man) 21 % Monocytes % (Manual) 30 % Neutrophils # (Manual) 0.50 L (1.40-6.50) K/uL Total Absolute Neuts 0.50 L* (1.4-6.5) K/uL Lymphocytes # (Manual) 0.93 L (1.2-3.4) K/uL Reactive Lymphs # 0.61 K/uL Total Abs Lymphocytes 1.55 (1.2-3.4) K/uL Monocytes # (Manual) 0.88 H (0.11-0.59) K/uL PT 11.3 (9.0-12.0) Seconds INR 1.0 (0.9-1.1) APTT 28 (21-31) Seconds PTT Ratio 1.0 Sodium 135 L (136-145) mmol/L Potassium 4.2 (3.5-5.1) mmol/L Chloride 99 (98-107) mmol/L Carbon Dioxide 28 (21-32) mmol/L Anion Gap 8 (3-11) BUN 15 (6-23) mg/dl Creatinine 0.64 (0.6-1.2) mg/dl Est Cr Clr Drug Dosing Not Reportable eGFR 91.53 BUN/Creatinine Ratio 23.4 H (10-20) Glucose 172 H (70-99(Fasting)) mg/dl Lactate 1.6 (0.4-2.0) mmol/L Calcium 9.2 (8.6-10.3) mg/dl Magnesium 2.2 (1.7-2.4) mg/dl Total Bilirubin 0.5 (0.2-1.0) mg/dl AST 24 (13-39) U/L ALT 22 (7-52) U/L Alkaline Phosphatase 60 (34-104) U/L Troponin I High Sens 8.6 (0-14) pg/ml Total Protein 7.8 (6.0-8.3) gm/dl Albumin 3.9 (3.4-5.0) gm/dl Globulin 3.9 (2.5-4.0) gm/dl Albumin/Globulin Ratio 1.0 (0.9-2) Procalcitonin 0.46 (0-0.5) ng/ml Urine Color Yellow Urine Appearance Cloudy A (Clear) Urine pH 7.0 (4.5-7.5) Ur Specific [place] 1.018 (1.000-1.030) Urine Protein 1+ H (Negative) Urine Glucose (UA) Negative (Negative) Urine Ketones Trace H (Negative) Urine Blood Negative (Negative) Urine Nitrite Negative (Negative) Urine Bilirubin Negative (Negative) Urine Urobilinogen Negative (Negative) Ur Leukocyte Esterase Negative (Negative) Urine WBC (Auto) 0-5 (0-5) /hpf Urine RBC (Auto) 3-5 H (0-2) /hpf U Hyaline Cast (Auto) 0-2 (0-2) /lpf U Epithel Cells (Auto) 6-10 H (0-2) /hpf Urine Bacteria (Auto) None Seen (None Seen) Administered Medications Discontinued Medications Ceftriaxone Sodium (Rocephin) 2,000 mg in 50 mls @ 100 mls/hr IV NOW STA Stop: 01/09/24 12:55 Last Infusion: 01/09/24 13:12 Dose: Infused Documented By: Admin: 01/09/24 12:42 Dose: 100 mls/hr Documented By: SILKE Imaging Data Attestation: I personally reviewed and interpreted this imaging study as follows: Radiologist's Impression: Chest X-Ray 01/09/24 10:03 XR chest 1V not portable HISTORY: 78 years-old Female Sepsis COMPARISON: 11/24/2019 TECHNIQUE: PA view of the chest FINDINGS: Cardiac silhouette is enlarged. Mild right hemidiaphragmatic elevation. No pneumothorax, pleural effusion or airspace consolidation. Degenerative changes of the shoulders and spine. IMPRESSION: No acute process. ACT 112: Negative or not required by law. The above report was generated using voice recognition software. It may contain grammatical, syntax or spelling errors. Electronically signed by: Mitesh Ramos M.D. 01/09/2024 11:48 AM Venous Doppler Study 01/09/24 10:38 US venous doppler LE RT HISTORY: 78 years-old Female RLE CELLULTITIS acute pain and swelling of the right lower leg COMPARISON: None TECHNIQUE: Multiple real-time sonographic images of the right lower extremity deep venous structures were obtained assessing grayscale appearance, color and spectral flow. FINDINGS: Normal flow, compressibility, phasicity and augmentation. No fluid collections. IMPRESSION: No sonographic evidence of deep venous thrombosis. ACT 112: Negative or not required by law. The above report was generated using voice recognition software. It may contain grammatical, syntax or spelling errors. Electronically signed by: Mitesh Ramos M.D. 01/09/2024 11:55 AM Venous Doppler Study 01/09/24 14:54 REASON FOR EXAM: The patient is presenting with a history of left calf pain. HISTORY: Left calf pain EXAM: Doppler ultrasound left lower extremity Real-time scanning with color flow and pulse Doppler analysis obtained. No deep venous thrombosis or occlusive phenomena is seen. Compressive maneuvers are normal. IMPRESSION: Negative for DVT left lower extremity. Electronically signed by Joe Bowers 01-09-2024 4:24 PM Discharge Plan Visit Data Chief Complaint: Edema To Extremity Stated Complaint: Edema To Extremity ED Provider: Kimberlyn Verde ED Midlevel Provider: Vladimir Olivier Discharge Problem: Cellulitis of right lower extremity, Failure of outpatient treatment, Pancytopenia Patient Disposition: Admitted As Inpatient Forms Stand Alone Forms: [facility] Prescriptions Prescriptions: No Action multivitamin Tablet 1 tab PO QAM ascorbic acid (vitamin C) [Vitamin C] 500 mg Tablet 500 mg PO QAM vitamin E 400 unit Tablet 400 unit PO QAM ibuprofen 200 mg Tablet 600 mg PO QAM PRN (Reason: Pain) Calcium 600 + D(3) 600 mg calcium- 200 unit Capsule 2 cap PO QAM cholecalciferol (vitamin D3) [Vitamin D3] 125 mcg (5,000 unit) Tablet 250 mcg PO QAM acetaminophen 500 mg Tablet 500 mg PO HS PRN (Reason: pain) calcium carbonate [Tums] 200 mg calcium (500 mg) Tablet,Chewable 200 mg PO BID PRN (Reason: Heartburn) atorvastatin 20 mg tablet 20 mg PO QAM lorazepam 0.5 mg tablet 0.25 - 0.5 mg PO HS PRN (Reason: anxiety ) cephalexin 500 mg capsule 500 mg PO BID gabapentin 100 mg capsule 100 mg PO BID citalopram 10 mg tablet 10 mg PO DAILY Referrals Referrals: Vidal Card MD [Primary Care Provider] -
--- NOTE | 2024-01-09 12:37 | Emergency Department Note ---
ED Visit Note I was consulted by the Advanced Practice Provider. I personally made/approved the management plan and take responsibility for the patient management. I performed a substantive portion of the visit. This includes the aspects of: -History/Physical -MDM .
[2024-01-09] MEDS: cefTRIAXone SODIUM 2,000 MG/50 ML BAG IV STA (12:42)
--- NOTE | 2024-01-09 14:00 | History & Physical Report ---
Date of Service January 09, 2024 Assessment & Plan (1) Failure of outpatient treatment: (2) Cellulitis of right lower extremity: Plan Rina You is a 78y/o F with PMHx significant for diet-controlled DM type II, dyslipidemia, paroxysmal SVT, HTN, GERD with esophagitis, primary osteoarthritis of both knees, NEVA, persistent insomnia and sacroiliitis who presented to the ED via EMS for evaluation of right lower extremity pain and erythema. She was recently diagnosed with right lower extremity cellulitis by her PCP over the weekend and has failed an outpatient course of oral Keflex. Please refer to the HPI for further details. RLE Cellulitis, Failure of O/P Treatment: No evidence of sepsis on admission. CXR personally reviewed and unremarkable. Procalcitonin/lactate both negative. RLE venous doppler ultrasound negative for DVT. S/p 2g IV Rocephin in the ED. Will treat w/ IV Unasyn for now. Blood cultures pending. L Calf Pain: Patient with some L calf pain and TTP in this region on exam. LLE venous doppler ultrasound pending to r/o DVT. No previous history of DVT/PE per the patient. Pancytopenia: WBC 2.92k, RBC 2.84, hemoglobin 9.7 and platelet count 102 on admission. Per review of outpatient records on [facility], it appears patient has not been pancytopenic in the past. Patient also denies ever having this problem. However, notably her WBC was 3.73k back in March of this year. Routine anemia workup pending. TSH pending. Will ultimately need close outpatient workup regarding this finding. Diet-Controlled DM Type II: No home diabetic agents, SSI while inpatient. Hgb A1c 6.5% ~9 months ago per chart review. BSG checks ACHS. Repeat Hgb A1c in AM. Other Chronic Medical Conditions: HLD/NEVA --> Can continue home medications for these specific conditions. Can also continue home gabapentin for neuropathic pain. DVT Prophylaxis: SCDs/TEDs for now ISO pancytopenia. Code Status: FULL CODE PCP: Vidal Card MD Disposition: Admit to Med/Surg - Likely to be admitted for 1 to 2 days depending on her clinical course. Patient seen in collaboration with Dr. Rodriguez. Please see addendum. I spent a total of 60 minutes coordinating, documenting, and providing care for this patient excluding time spent in the performance of separately billed services. This included personally reviewing all current laboratories and imaging studies, medical reconciliation, outpatient chart review and discussion with specialists. This chart was completed in part utilizing Speech Voice Recognition Software. Grammatical errors, random word insertions, pronoun errors, and incomplete sentences are an occasional consequence of this system due to software l imitations, ambient noise, and hardware issues. Any formal questions or concerns about the content, text, or information contained within the body of this dictation should be directly addressed to the provider for clarification. History of Present Illness Chief Complaint: RLE Pain/Erythema Primary Care Provider: Vidal Card MD Rina You is a 78y/o F with PMHx significant for diet-controlled DM type II, dyslipidemia, paroxysmal SVT, HTN, GERD with esophagitis, primary osteoarthritis of both knees, NEVA, persistent insomnia and sacroiliitis who presented to the ED via EMS for evaluation of right lower extremity pain and erythema. History obtained from the patient and associated chart review. Patient started to develop some pain, swelling and mild erythema of her right calf region approximately 8 days ago. She ended up going to the [facility] ED last Sunday and they performed a venous doppler ultrasound on the right lower extremity which was negative for a DVT. She was not discharged home on antibiotics at that time as her presentation was thought to be not consistent with cellulitis. She was however seen by her PCP this past Sunday and diagnosed with right lower extremity cellulitis as her symptoms did not improve. She was started on a oral course of cephalexin at that time but unfortunately her symptoms are still not improving. Her right lower extremity is still erythematous and now slightly warm to the touch. She has also developed malaise/fatigue and poor appetite over the past couple of days. Her right calf region is tender to palpation. Patient also endorses some left calf "tightness" and tenderness to palpation which has been ongoing for a few weeks. She reports that she has been having difficulty ambulating around the house due to the pain in her bilateral calves however she denies any recent falls or trauma. She does not use any assistive devices at home for ambulation. No documented fevers however she does endorse some mild chills. She has had previous episodes of cellulitis that have responded well to oral antibiotics. There was no known injury to the right lower extremity prior to the onset of her symptoms. She is now s/p 2g of IV Rocephin in the ED. VSS, no evidence of sepsis. Allergies Allergy/AdvReac Type Severity Reaction Status Date / Time No Known Allergies Allergy Mild Verified 12/29/21 10:15 Home Medications Medication Instructions Recorded Confirmed Type acetaminophen 500 mg tablet 500 mg PO HS PRN pain 11/17/19 01/09/24 History ascorbic acid (vitamin C) 500 mg 500 mg PO QAM 11/17/19 01/09/24 History tablet (Vitamin C) calcium 600 mg (as 2 cap PO QAM 11/17/19 01/09/24 History carbonate)-vitamin D3 5 mcg (200 unit) capsule (Calcium 600 + D(3)) calcium carbonate (Tums) 200 mg PO BID PRN Heartburn 11/17/19 01/09/24 History cholecalciferol (vitamin D3) 125 250 mcg PO QAM 11/17/19 01/09/24 History mcg (5,000 unit) tablet (Vitamin D3) ibuprofen 200 mg tablet 600 mg PO QAM PRN Pain 11/17/19 01/09/24 History multivitamin 1 tab PO QAM 11/17/19 01/09/24 History vitamin E 400 unit tablet 400 unit PO QAM 11/17/19 01/09/24 History atorvastatin 20 mg tablet 20 mg PO QAM 01/09/24 01/09/24 History cephalexin 500 mg capsule 500 mg PO BID 01/09/24 01/09/24 History citalopram 10 mg tablet 10 mg PO DAILY 01/09/24 01/09/24 History gabapentin 100 mg capsule 100 mg PO BID 01/09/24 01/09/24 History lorazepam 0.5 mg tablet 0.25 - 0.5 mg PO HS PRN anxiety 01/09/24 01/09/24 History Past Med/Surg History Problem List (Updated 01/09/24 @ 16:50 by Vladimir Olivier) Pancytopenia (Acute) Cellulitis of right lower extremity (Acute) Failure of outpatient treatment (Acute) Cellulitis of right lower extremity Biceps tendinitis of right shoulder Lumbar spondylosis 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 Does not need to follow with cardio. Sciatica Right -- follows with Dr Mandel ([place]) Elevated cholesterol Controlled with statin Surgical History S/P epidural steroid injection History of appendectomy H/O cardiac radiofrequency ablation 2004 H/O: hysterectomy MONICA with BSO Family History Other Coronary heart disease Diabetes Leukemia No family history of adverse response to anesthesia Social History Smoking Status: Never smoker Second Hand Exposure: No; Do You Dip or Chew Tobacco: No; Hx Alcohol Use: Yes (1-2 drinks/day) Alcohol type: wine Hx Substance Use: No Preferred Language: Amharic Communication Ability: Effective Visual Impairment: No Limitations Solar Pv Installer Required: No Beliefs That Will Affect Care: None marital status: Current Living Situation: Spouse Feels Safe at Home: Yes Assistive Devices: Walker Review of Systems Review of Systems: At least ten systems reviewed and negative, except as noted in the HPI. Physical Exam Physical Exam: General: WD/WN, vitals as above, NAD, sitting up in bed, very pleasant, conversing appropriately. A+Ox3, euthymic affect. HEENT: Normocephalic, atraumatic. Conjunctivae normal, anicteric sclerae. External ear and nose normal, oropharynx normal. Respiratory: Normal respiratory effort, lungs clear to auscultation, no wheeze, rales, rhonchi. No accessory muscle use. Cardiovascular: Regular rate, rhythm, no murmur, normal peripheral pulses, no BLE edema. Vessels: No JVD. Abdomen/GI: Normal bowel sounds, soft, nontender to palpation in all quadrants. Extremities/MSK: Erythema along R medial calf region, mild RLE swelling/warm to the touch/TTP. TTP of L calf region as well. Neurologic: No focal deficits, CN's II-XI not formally tested but appear grossly intact bilaterally. Results & Data Results & Data Vital Signs (Past 12 Hours) Vital Signs Temp Pulse Pulse Resp BP BP Pulse Ox 01/09/24 13:00 79 16 146/77 H 92 01/09/24 12:12 75 16 95 01/09/24 12:12 95 01/09/24 12:00 70 01/09/24 11:58 82 16 136/82 95 01/09/24 10:01 37.3 C 79 18 122/67 94 O2 Del Method 01/09/24 13:00 Room Air 01/09/24 12:12 Room Air 01/09/24 12:12 Room Air 01/09/24 12:00 01/09/24 11:58 Room Air 01/09/24 10:01 Room Air Laboratory Results Short CBC 01/09/24 Range/Units 10:32 WBC 2.92 L (4.8-10.8) K/ul Hgb 9.7 L (12.0-16.0) g/dl Hct 29.0 L (37.0-47.0) % Plt Count 102 L (130-400) K/uL BMP 01/09/24 10:32 Sodium 135 L Potassium 4.2 Chloride 99 Carbon Dioxide 28 BUN 15 Creatinine 0.64 Glucose 172 H Calcium 9.2 Liver Function 01/09/24 Range/Units 10:32 Total Bilirubin 0.5 (0.2-1.0) mg/dl AST 24 (13-39) U/L ALT 22 (7-52) U/L Alkaline Phosphatase 60 (34-104) U/L Albumin 3.9 (3.4-5.0) gm/dl Diagnostic Findings Chest X-Ray 01/09/24 10:03 XR chest 1V not portable HISTORY: 78 years-old Female Sepsis COMPARISON: 11/24/2019 TECHNIQUE: PA view of the chest FINDINGS: Cardiac silhouette is enlarged. Mild right hemidiaphragmatic elevation. No pneumothorax, pleural effusion or airspace consolidation. Degenerative changes of the shoulders and spine. IMPRESSION: No acute process. ACT 112: Negative or not required by law. The above report was generated using voice recognition software. It may contain grammatical, syntax or spelling errors. Electronically signed by: Mitesh Ramos M.D. 01/09/2024 11:48 AM Venous Doppler Study 01/09/24 10:38 US venous doppler LE RT HISTORY: 78 years-old Female RLE CELLULTITIS acute pain and swelling of the right lower leg COMPARISON: None TECHNIQUE: Multiple real-time sonographic images of the right lower extremity deep venous structures were obtained assessing grayscale appearance, color and spectral flow. FINDINGS: Normal flow, compressibility, phasicity and augmentation. No fluid collections. IMPRESSION: No sonographic evidence of deep venous thrombosis. ACT 112: Negative or not required by law. The above report was generated using voice recognition software. It may contain grammatical, syntax or spelling errors. Electronically signed by: Mitesh Ramos M.D. 01/09/2024 11:55 AM Medications Administered Discontinued Medications Ceftriaxone Sodium (Rocephin) 2,000 mg in 50 mls @ 100 mls/hr IV NOW STA Stop: 01/09/24 12:55 Last Infusion: 01/09/24 13:12 Dose: Infused Documented By: Admin: 01/09/24 12:42 Dose: 100 mls/hr Documented By: SILKE Code Status & VTE Plan Code Status FULL CODE Supervising Physician Co-Signing Physician Notes 01/09/2024 The patient was seen and examined in emergency room She has been complaining of right leg redness and pain for the last 1 week or so Has been taking Keflex for possible cellulitis without any improvement Complains today of pain and increasing redness without any fever and chills On examination Lying in bed without any apparent distress Chestclear to auscultate bilaterally HeartS1-S2, regular Abdomenbenign Extremitiesno edema but has redness involving the lower half of right leg CNSalert, awake and oriented x 3 no focal sensory or motor deficit appreciated Her admission labs, EKG and imaging studies reviewed Has right leg spreading cellulitis with failure of outpatient treatment No evidence of DVT on either side Pancytopenia with neutropenia Will start intravenous Unasyn with a possible oral transition to Augmentin on discharge Agree with assessment and plan as outlined above by Jessica Keys PA-C and take the full response of the care Dr Keron Rodriguez
[2024-01-09 15:19] LABS: Appearance Urine Cloudy (Clear); Bacteria Urine Automated None Seen (None Seen); Bilirubin Urine Negative (Negative); Blood Urine Negative (Negative); Cast Urine Automated 0-2 /lpf (0-2); Color Urine Yellow; Glucose Urine UA Negative (Negative); Ketones Urine Trace (Negative); Leukocyte Esterase Urine Negative (Negative); Nitrite Urine Negative (Negative); Protein Urine 1+ (Negative); Specific Gravity Urine 1.018 (1.000-1.030); Urobilinogen Urine Negative (Negative); WBC Urine Automated 0-5 /hpf (0-5)
--- NOTE | 2024-01-09 16:24 | Ultrasound Report ---
REASON FOR EXAM: The patient is presenting with a history of left calf pain. HISTORY: Left calf pain EXAM: Doppler ultrasound left lower extremity Real-time scanning with color flow and pulse Doppler analysis obtained. No deep venous thrombosis or occlusive phenomena is seen. Compressive maneuvers are normal. IMPRESSION: Negative for DVT left lower extremity. Electronically signed by Joe Bowers 01-09-2024 4:24 PM
[2024-01-09] MEDS: ACETAMINOPHEN 500 MG TAB ONE (17:17)
[2024-01-09] MEDS ORDERED: MAGNESIUM HYDROXIDE SUSP 30 ML UDC PO PRN (17:49)
[2024-01-09] MEDS ORDERED: DEXTROSE 50% 50 ML SYRINGE IV PRN (17:49)
[2024-01-09] MEDS ORDERED: GLUCOSE 10 TAB/TUBE PO PRN (17:49)
[2024-01-09] MEDS ORDERED: CARBOHYDRATES FOR HYPOGLYCEMIA PO PRN (17:49)
[2024-01-09] MEDS ORDERED: GLUCOSE 40% GEL 15 GM TUBE PO PRN (17:49)
[2024-01-09] MEDS ORDERED: ONDANSETRON INJ 2 MG/ML 2 ML VIAL IV PRN (17:49)
[2024-01-09] MEDS ORDERED: POLYETHYLENE (MIRALAX) 17 GM PACK PO PRN (17:49)
[2024-01-09] MEDS ORDERED: GLUCAGON FOR INJ 1 MG VIAL SQ PRN (17:49)
[2024-01-09] MEDS: AMPICILLIN/SULBACTAM SOD 3,000 MG/100 ML BAG IV SCH (18:46)
[2024-01-09] MEDS: ADVANCED PROBIOTIC 625 MG CAPSULE PO SCH (18:46)
[2024-01-09] MEDS: INSULIN ASPART PER UNIT CHARGE SC SCH (18:57)
[2024-01-09] MEDS: GABAPENTIN 100 MG CAP PO SCH (21:04)
[2024-01-10] MEDS: ACETAMINOPHEN 500 MG TAB PO PRN (05:53)
--- NOTE | 2024-01-10 06:02 | Electrocardiogram Report ---
Test Reason : Blood Pressure : */* mmHG Vent. Rate : 80 BPM Atrial Rate : 80 BPM P-R Int : 140 ms QRS Dur : 122 ms QT Int : 408 ms P-R-T Axes : 44 33 -27 degrees QTcB Int : 470 ms Normal sinus rhythm Right bundle branch block Abnormal ECG When compared with ECG of 24-Nov-2019 08:38, Right bundle branch block is now Present Confirmed by Mohsen Abraham ([id number]) on 01/10/2024 6:02:03 AM Referred By: Confirmed By: Mohsen Abraham
--- OUTSIDE RECORDS SUMMARY | 2024-01-10 06:09 | External Medical Summary | Summary of Care ---
Author Name Unknown Organization [facility] Address [address] [place] [address] Phone [phone] Care Team Providers Care Spectrograph Operator Name Role Phone Vidal Card MD Primary Care Provider [phone] Reason for Visit * Reason Onset Date Comments Medication Management 10/26/2023 Encounter Details Date Type Department Care Team (Late st Contact Info) Description 10/26/2023 Telephone [facility] [address] [place] [address] Suzanne Oquendo PA-C [address] [place] [id number] Medication Management Allergies No known active allergiesdocumented as of this encounter (statuses as of 12/25/2023) Medications Medication Sig Dispensed Refills Start Date End Date Status CALCIUM 500/D 500-200 MG-UNIT OR TABS 2 daily 0 06/27/2004 Active VITAMIN E 400 UNIT OR CAPS 0 06/27/2004 Active MULTIPLE VITAMIN ESSENTIAL OR TABS 0 06/27/2004 Active Probiotic & Acidophilus Ex St Oral Capsule Take 1 Capsule by mouth in the morning and 1 Capsule at noon and 1 Capsule in the evening. Take with meals. Active Citalopram Hydrobromide 10 MG Oral Tablet (CeleXA) Take 1 Tablet by mouth in the morning. In the morning.. 100 Tablet 3 04/10/2023 Active Atorvastatin Calcium 20 MG Oral Tablet (Lipitor) TAKE 1 TABLET BY MOUTH IN THE MORNING 90 Tablet 3 04/10/2023 Active LORazepam 0.5 MG Oral Tablet (Ativan)Indication s:NEVA (generalized anxiety disorder) TAKE 1 TABLET BY MOUTH AT BEDTIME NEEDED FOR ANXIETY. CAN TAKE 1/2 TABLET OR 1 TABLET 20 Tablet 04/10/2023 Active Gabapentin 100 MG Oral Capsule (Neurontin)Indicat ions:Lumbar radicular pain TAKE 1 CAPSULE BY MOUTH TWO TIMES DAILY 60 Capsule 5 08/13/2023 Active methylPREDNISolone 4 MG Oral Tablet Therapy Pack (Medrol Dosepack) follow package directions 21 Tablet 04/10/2023 4 Discontinue d(Medicatio n List Clean Up) documented as of this encounter (statuses as of 12/25/2023) Active Problems Problem Noted Date Diagnosed Date Overweight (BMI 25.0-29.9) 10/05/2021 Spinal stenosis of lumbar re gion without neurogenic claudication 10/05/2021 Persistent insomnia 10/05/2021 HTN, goal below 130/80 04/23/2019 NEVA (generalized anxiety disorder) 01/08/2019 Primary osteoarthritis of both knees 01/08/2019 Type 2 diabetes mellitus wit h hemoglobin A1c goal of less than 8.0% 01/08/2019 Dyslipidemia 02/02/2009 Overview: Per Lipid Taxonomy. Gastroesophageal reflux disease with esophagitis 08/30/2005 Paroxysmal SVT (supraventricular tachycardia) documented as of this encounter (statuses as of 12/25/2023) Resolved Problems Problem Noted Date Diagnosed Date Resolved Date Sacroiliitis 01/08/2019 10/05/2021 Prediabetes 04/03/2017 01/08/2019 Overview: Per Prediabetes protocol #1 Mixed dyslipidemia 08/30/2005 9 Overview: Per Lipid Taxonomy. Anxiety state 08/30/2005 01/08/2019 Headache 08/30/2005 12/25/2018 Overview: ICD-10 update of inactive term ADVANCE DIRECTIVE INFORMATION 07/25/2004 01/08/2019 Overview: Yes, Patient instructed to provide copy of advance directive for provider to review and to be scanned into Electronic Medical Record documented as of this encounter (statuses as of 12/25/2023) Immunizations Name Administration Dates Next Due H1N1 2009 Influenza, Intranasal 12/20/2008 Pneumococcal Conjugate Vacc, 13 Valent (Prevnar) 02/15/2016 Seasonal Influenza Vac., MDV , IM, 0.5 mL (Fluzone) 11/19/2013,11/19/2012,12/03/2010,2009,11/05/2008,11/29/2006 Seasonal Influenza, PF, 6 M & above, IM , (FluLaval or Fluzone) 12/03/2018 Seasonal Influenza, Quadriva lent Hd (Fluzone Hd) 11/29/2021 Seasonal Influenza, Quadriva lent, No Preserve, IM 11/22/2015,11/19/2014 TDAP, Age 7 and older, IM (Adacel) 01/21/2008 documented as of this encounter Social History Tobacco Use Types Packs/Day Years Used Date Smoking Tobacco: Never Smokeless Tobacco: Never Alcohol Use Standard Drinks/Week Comments Yes 0 (1 standard drink = 0.6 oz pur e alcohol) wine/night PHQ-2 Answer Date Recorded PHQ-2 Score 0 01/08/2019 Hunger Vital Sign Answer Date Recorded Worried About Running Out of Food in the Last Ye ar Never true 01/08/2019 Ran Out of Food in the Last Year Never true 01/08/2019 Utilities Answer Date Recorded Do you have trouble paying y our heating, water, or electric bill? (Adult - for ages 18 years and over) Not on file 08/07/2023 Is your family able to pay t he heat, water, or electric bill? (Household - for ages 0-17 years) Not on file 08/07/2023 Does your family have access to good internet? (Household - for ages 0-17 years) Not on file 08/07/2023 Social Connections Answer Date Recorded How often do you feel lonely or isolated from those around you? (Adult - for ages 18 years and over) Not on file 08/07/2023 Sex and Gender Information Value Date Recorded Sex Assigned at Not on file Gender Identity Not on file Sexual Orientation Not on file Job Start Date Occupation Industry Not on file Not on file Not on file documented as of this encounter Miscellaneous Notes * Addendum Note - Tammy Turner, [facility] - 12/25/2023 3:16 PM ESTAddended by: TAMMY TURNER on: 12/25/2023 03:16 PM Modules accepted: Orders * Telephone Encounter - Tammy Turner CPhT - 12/25/2023 3:15 PM EST Patient is up to date for office visits. Pending Prescriptions: Disp Refills Gabapentin 100 MG Oral Capsule (Neurontin)60 Cap*5 Sig: TAKE 1 CAPSULE BY MOUTH TWO TIMES DAILY Last Visit: 01/16/2023 (in office), 05/14/2023 (telemedicine) Next Visit: 02/18/2024 If no future appointments scheduled, and last appointment is greater than a year ago, please schedule patient for a follow-up appointment Last date the medication was ordered: 08/13/23 Pharmacy: [facility] [id number] [place] Is this request for a controlled substance?No it is not controlled. Urine Drug Screen:No results found for this or any previous visit. Patient Phone Numbers Labs: Lab Results Component Value Date/Time CREAT 0.6 03/31/2023 08:21 AM CREAT 0.7 02/10/2016 08:44 AM POTASSIUM 4.5 03/31/2023 08:21 AM POTASSIUM 4.4 02/10/2016 08:44 AM TSH 2.13 09/17/2014 08:13 AM LDL 96 03/31/2023 08:21 AM LDL 81 01/08/2019 09:35 AM LDL NOT APPLICABLE 01/08/2019 09:35 AM ALT 22 02/10/2016 08:44 AM HGBA1C 6.5 (H) 03/31/2023 08:21 AM HGBA1C 6.7 (H) 01/08/2019 09:35 AM * Telephone Encounter - Alivia Coreas CPhT - 10/26/2023 10:33 AM EDT Incoming call from patient for gabapentin refill request, advised last Rx had been written with 5 refills Patient will call pharmacy for refill Thank You, Alivia Coreas CPhT Intr[employer] Support III [facility] ([facility]) documented in this encounter Plan of Treatment Upcoming Encounters Date Type Department Care Team (Late st Contact Info) Description 02/18/2024 9:30 AM EST Telemedicine [facility], [facility] [address] [place] [address] Suzanne Oquendo PA-C [address] [place] [address] 03/25/2024 4:00 PM EST Office Visit Family Practice [facility] [address] [place] [address] Vidal Card MD [address] [place] [address] Health Maintenance Due Date Last Done Comments DXA Scan 1945 Diabetic Foot Exam 1965 Hepatitis C Screening 1965 Zoster Vaccines (1 of 2) 1997 Adult Wellness Visit 2013 Pneumococcal Vaccine: 65+ Years (2 of 2 - PPSV23 or PCV20) 04/11/2016 02/15/2016 DTap/Tdap Vaccines (2 - Td or Tdap) 01/20/2018 01/21/2008 Depression Screening 01/09/2020 01/08/2019 Albumin/Creatinine Ratio 10/05/2022 10/05/2021 HbA1c 09/29/2023 03/31/2023, 09/19, 01/08/2019, Additional history exists COVID-19 Vaccine ( season) 2024 11/26/2023, 04/05/2022, 02/02/2021 Diabetic Eye Exam 02/06/2024 02/05/2023 GFR 03/31/2024 03/31/2023, 09/19, 02/10/2016, Additional history exists Influenza Vaccine (FLU shot) Completed 08/2023, 11/22/2022, 11/29/2021, Additional history exists HPV (Gardasil) Vaccine Aged Out No lo nger eligible based on patient's age to complete this topic Hepatitis B Vaccine Aged Out No longe r eligible based on patient's age to complete this topic MENINGOCOCCAL (MENACTRA/MENVEO) Aged Out No longer eligible based on patient's age to complete this topic documented as of this encounter Medical Devices Not on filedocumented as of this encounter Visit Diagnoses Diagnosis Lumbar radicular pain Thoracic or lumbosacral neuritis or radiculitis, unspecified documented in this encounter Care Teams Spectrograph Operator Relationship Specialty Start Date End Date Vidal Card MD [address] [place] [address] PCP - General Family Medicine 01/08/19 documented as of this encounter
--- OUTSIDE RECORDS SUMMARY | 2024-01-10 06:09 | External Medical Summary | Summary of Care ---
Author Name Unknown Organization [facility] Address [address] [place] [address] Phone [phone] Care Team Providers Care Library Sales Consultant Name Role Phone Vidal Card MD Primary Care Provider [phone] [phone] Reason for Visit * Reason Comments Acute Pt reports sinus hea dache, congestion, post nasal drip, sore throat, started approx 1 week ago. OTC Tylenol, advil dual, cold medicine (not preferred). Encounter Details Date Type Department Care Team (Late st Contact Info) Description 10/26/2023 12:20 PM EDT Office Visit Family Practice [facility] [address] [place] [address] Elena Choi CRNP [address] [facility] [place] [address] Acute sinusitis, recurrence not specified, unspecified location* Allergies No known active allergiesdocumented as of this encounter (statuses as of 11/12/2023) Medications Medication Sig Dispensed Refills Start Date [...] follow package directions 21 Tablet 04/10/2023 4 Discontinued (Medication List Clean Up) Doxycycline Hyclate 100 MG Oral CapsuleIndications :Acute sinusitis, recurrence not specified, unspecified location Take 1 Capsule by mouth in the morning and 1 Capsule before bedtime. Do all this for 10 days. Until gone.. 20 Capsule 10/26/2023 4 documented as of this encounter (statuses as of 11/12/2023) Active Problems Problem Noted Date Diagnosed Date [...] as of this encounter (statuses as of 11/12/2023) Resolved Problems Problem Noted Date Diagnosed Date [...] as of this encounter (statuses as of 11/12/2023) Immunizations Name Administration Dates Next Due H1N1 2009 Influenza, Intranasal 12/20/2008 Pneumococcal Conjugate Vacc, 13 Valent (Prevnar) 02/15/2016 Seasonal Influenza, PF, 6 M & above, IM , (FluLaval or Fluzone) 12/03/2018 Seasonal Influenza, Quadriva lent Hd (Fluzone Hd) 11/29/2021 Seasonal Influenza, Quadriva lent, No Preserve, IM 11/22/2015,11/19/2014 Seasonal Influenza, Trivalen t, (IIV3), with Preserv, (Fluzone) 11/19/2013,11/19/2012,12/03/2010,2009,11/05/2008,11/29/2006 TDAP, Age 7 and older, IM (Adacel) 01/21/2008 documented as of this encounter Social History Tobacco Use Types Packs/Day Years Used Date Smoking Tobacco: Never Smokeless Tobacco: Never Tobacco Cessation:Counseling Given: Not Answered Alcohol Use Standard Drinks/Week Comments Yes 0 [...] on file documented as of this encounter Last Filed Vital Signs Vital Sign Reading Time Taken Comments Blood Pressure 128/60 10/26/2023 12:35 PM EDT Pulse 76 10/26/2023 12:35 PM EDT Temperature 37.2 C (99 F) 10/26/2023 12:35 PM EDT Respiratory Rate - - Oxygen Saturation 93% 10/26/2023 12:35 PM EDT Inhaled Oxygen Concentration - - Weight 68.5 kg (151 lb) 10/26/2023 12:35 PM EDT Height - - Body Mass Index 28.07 04/10/2023 9:43 AM EST documented in this encounter Progress Notes * Elena Choi CRNP - 10/26/2023 12:40 PM EDT Images from the original note were not included. History of Present Illness Rina You is a 78 year old female that presents for Acute (Pt reports sinus headache, congestion, post nasal drip, sore throat, started approx 1 week ago. OTC Tylenol, advil dual, cold medicine (not preferred)./) HPI Here for the above Denies dyspnea, SOB, fever Eating and drinking ok No n/v/d Current Outpatient Medications Medication Sig Dispense Refill Gabapentin 100 MG Oral Capsule (Neurontin) TAKE 1 CAPSULE BY MOUTH TWO TIMES DAILY 60 Capsule 5 Atorvastatin Calcium 20 MG Oral Tablet (Lipitor) TAKE 1 TABLET BY MOUTH IN THE MORNING 90 Tablet 3 Citalopram Hydrobromide 10 MG Oral Tablet (CeleXA) Take 1 Tablet by mouth in the morning. In the morning.. 100 Tablet 3 LORazepam 0.5 MG Oral Tablet (Ativan) TAKE 1 TABLET BY MOUTH AT BEDTIME NEEDED FOR ANXIETY. CAN TAKE 1/2 TABLET OR 1 TABLET 20 Tablet 0 Probiotic & Acidophilus Ex St Oral Capsule Take 1 Capsule by mouth in the morning and 1 Capsuleat noon and 1 Capsule in the evening. Take with meals. MULTIPLE VITAMIN ESSENTIAL OR TABS 0 VITAMIN E 400 UNIT OR CAPS 0 CALCIUM 500/D 500-200 MG-UNIT OR TABS 2 daily 0 No current facility-administered medications for this visit. Physical Exam Vitals: 10/26/23 1235 Temp: 37.2 C (99 F) Pulse: 76 SpO2: 93% BP: 128/60 Physical Exam Vitals reviewed. Constitutional: Appearance: Normal appearance. HENT: Head: Normocephalic and atraumatic. Right Ear: Tympanic membrane, ear canal and external ear normal. Left Ear: Tympanic membrane, ear canal and external ear normal. Nose: Congestion and rhinorrhea present. Mouth/Throat: Mouth: Mucous membranes are moist. Pharynx: Posterior oropharyngeal erythema present. No oropharyngeal exudate. Eyes: Extraocular Movements: Extraocular movements intact. Conjunctiva/sclera: Conjunctivae normal. Pupils: Pupils are equal, round, and reactive to light. Cardiovascular: Rate and Rhythm: Normal rate and regular rhythm. Heart sounds: Normal heart sounds. Pulmonary: Effort: Pulmonary effort is normal. Breath sounds: Normal breath sounds. Abdominal: General: There is no distension. Palpations: Abdomen is soft. Tenderness: There is no abdominal tenderness. Musculoskeletal: Cervical back: Neck supple. Right lower leg: No edema. Left lower leg: No edema. Lymphadenopathy: Cervical: No cervical adenopathy. Skin: General: Skin is warm and dry. Capillary Refill: Capillary refill takes less than 2 seconds. Neurological: Mental Status: She is alert and oriented to person, place, and time. Psychiatric: Behavior: Behavior normal. Thought Content: Thought content normal. Assessment and Plan Acute sinusitis, recurrence not specified, unspecified location Discussed supportive care, indications for follow up or ER - Doxycycline Hyclate 100 MG Oral Capsule; Take 1 Capsule by mouth in the morning and 1 Capsule before bedtime. Do all this for 10 days. Until gone.. Wrap-Up Follow Up: Return if symptoms worsen or fail to improve. Time: I spent a total of 20-29 minutes (exact time 20 mins) on the date of service in preparation, delivery, and documentation of the care provided to Rina You excluding any time spent in the performance of separately billed services. documented in this encounter Nursing Notes * Shashank Patino CMA - 10/26/2023 12:35 PM EDT The patient has been properly identified by confirmation of name and date of . Chief Complaint Patient presents with Acute Pt reports sinus headache, congestion, post nasal drip, sore throat, started approx 1 week ago. OTCTylenol, advil dual, cold medicine (not preferred). documented in this encounter Plan of Treatment Upcoming Encounters Date Type Department Care Team (Late st Contact Info) Description 02/18/2024 9:30 AM EST Telemedicine [facility], [facility] [address] [address] Suzanne Oquendo PA-C [address] [place] [address] 03/25/2024 4:00 PM EST Office Visit Family Practice [facility] [address] [place] [address] Vidal Card MD [address] [place] [address] Health Maintenance Due Date Last Done Comments [...] Additional history exists COVID-19 Vaccine ( season) 2023 01/16/2023, 04/05/2022, 02/02/2021 Influenza Vaccine (FLU shot) (#1) 2023 11/22/2022, 11/29/2021, 12/03/2018, Additional history exists Diabetic Eye Exam 02/06/2024 02/05/2023 GFR 03/31/2024 03/31/2023, 09/19, 02/10/2016, Additional history exists HPV (Gardasil) Vaccine Aged [...] as of this encounter Visit Diagnoses Diagnosis Acute sinusitis, recurrence not specified, unspecified location- Primary documented in this encounter Care Teams Library Sales Consultant Relationship Specialty Start Date End Date Vidal Card MD [address] [place] [address] PCP - General Family Medicine 01/08/19 documented as of this encounter
--- OUTSIDE RECORDS SUMMARY | 2024-01-10 06:09 | External Medical Summary | Summary of Care ---
Author Name Unknown Organization [facility] Address [address] [facility] [address] Phone [phone] Care Team Providers Care Engravings Polisher Name Role Phone Vidal Card MD Primary Care Provider [phone] [phone] Encounter Details Date Type Department Care Team (Late st Contact Info) Description 01/02/2024 Result Scan Unspecified Department <No scans attached> Allergies No known active allergiesdocumented as of this encounter (statuses as of 01/04/2024) Medications CALCIUM 500/D 500-200 MG-UNIT OR TABS 2 daily 0 5 Active VITAMIN E 400 UNIT OR CAPS 0 5 Active MULTIPLE VITAMIN ESSENTIAL OR TABS 0 5 Active Probiotic & Acidophilus Ex St Oral Capsule Take 1 Capsule by mouth in the morning and 1 Capsule at noon and 1 Capsule in the evening. Take with meals. Active Citalopram Hydrobromide 10 MG Oral Tablet (CeleXA) Take 1 Tablet by mouth in the morning. In the morning.. 100 Tablet 3 4 Active Atorvastatin Calcium 20 MG Oral Tablet (Lipitor) TAKE 1 TABLET BY MOUTH IN THE MORNING 90 Tablet 3 4 Active LORazepam 0.5 MG Oral Tablet (Ativan)Indicatio ns:NEVA (generalized anxiety disorder) TAKE 1 TABLET BY MOUTH AT BEDTIME NEEDED FOR ANXIETY. CAN TAKE 1/2 TABLET OR 1 TABLET 20 Tablet 4 Active Gabapentin 100 MG Oral Capsule (Neurontin)Indica tions:Lumbar radicular pain TAKE 1 CAPSULE BY MOUTH TWO TIMES DAILY 60 Capsule 5 4 Active documented as of this encounter (statuses as of 01/04/2024) Active Problems Problem Noted Date Diagnosed Date Overweight (BMI 25.0-29.9) 10/05/2021 Spinal stenosis of lumbar re gion without neurogenic claudication 10/05/2021 Persistent insomnia 10/05/2021 HTN, goal below 130/80 04/23/2019 NEVA (generalized anxiety disorder) 01/08/2019 Primary osteoarthritis of both knees 01/08/2019 Type 2 diabetes mellitus wit h hemoglobin A1c goal of less than 8.0% 01/08/2019 Dyslipidemia 02/02/2009 Overview (02/02/2009): Per Lipid Taxonomy. Gastroesophageal reflux disease with esophagitis 08/30/2005 Paroxysmal SVT (supraventricular tachycardia) documented as of this encounter (statuses as of 01/04/2024) Resolved Problems Problem Noted Date Diagnosed Date Resolved Date Sacroiliitis 01/08/2019 10/05/2021 Prediabetes 04/03/2017 01/08/2019 Overview: Per Prediabetes protocol #1 Mixed dyslipidemia 08/30/2005 9 Overview (02/02/2009): Per Lipid Taxonomy. Anxiety state 08/30/2005 01/08/2019 Headache 08/30/2005 12/25/2018 Overview (05/12/2015): ICD-10 update of inactive term ADVANCE DIRECTIVE INFORMATION 07/25/2004 01/08/2019 Overview (07/25/2004): Yes, Patient instructed to provide copy of advance directive for provider to review and to be scanned into Electronic Medical Record documented as of this encounter (statuses as of 01/04/2024) Immunizations Name Administration Dates Next Due H1N1 [...] years and over) Not on file 08/07/2023 Comments No Sex and Gender Information Value Date Recorded Sex Assigned at Not on file Legal Sex Female 6:19 AM EST Gender Identity Not on file Sexual Orientation Not on file 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 Not on file Not on file documented as of this encounter Plan of Treatment Upcoming Encounters Date Type Department Care Team (Late st Contact Info) Description 01/05/2024 10:00 AM EST Office Visit Family Practice [facility] [address] [address] Vidal Card MD [address] [place] [address] [address] 02/18/2024 9:30 AM EST Telemedicine [facility], [facility] [address] [place] [address] Suzanne Oquendo PA-C [address] [place] [address] 03/25/2024 4:00 PM EST Office Visit Family Practice [facility] [address] [place] [address] Vidal Card MD [address] [place] [address] Health Maintenance Due Date Last Done Comments [...] Not on filedocumented as of this encounter Procedures Procedure Name Priority Date/Time Associated Diagnosis Comments RADIOLOGY SCANNED RESULT 01/02/2024 documented in this encounter Results * RADIOLOGY SCANNED RESULT (01/02/2024) 01/02/2024 us No Physician Data Unknown DIAGNOSTIC RADIOLOGY S ERVICES Final Result documented in this encounter Care Teams Engravings Polisher Relationship Specialty Start Date End Date Vidal Card MD [address] [place] [address] PCP - General Family Medicine 01/08/19 documented as of this encounter
--- OUTSIDE RECORDS SUMMARY | 2024-01-10 06:09 | External Medical Summary | Summary of Care ---
Author Name Unknown Organization [facility] Address [address] [facility] [address] Phone [phone] Care Team Providers Care Coal Gasification Technician Name Role Phone Vidal Card MD Primary Care Provider [phone] [phone] Reason for Visit * Reason Onset Date Comments Medication Management 10/26/2023 Encounter Details Date Type Department Care Team (Late st Contact Info) Description 10/26/2023 Telephone Interventional [facility], [facility] [address] [place] [address] Suzanne Oquendo PA-C [address] [place] [address] Medication Management Allergies No known active allergiesdocumented as of this encounter (statuses as of 01/07/2024) Medications CALCIUM 500/D 500-200 MG-UNIT OR TABS [...] THE MORNING 90 Tablet 3 4 Active Gabapentin 100 MG Oral Capsule (Neurontin)Indic ations:Lumbar radicular pain TAKE 1 CAPSULE BY MOUTH TWO TIMES DAILY 60 Capsule 5 4 Active methylPREDNISolo ne 4 MG Oral Tablet Therapy Pack (Medrol Dosepack) follow package directions 21 Tablet 4 024 Discontin ued(Medic ation List Clean Up) LORazepam 0.5 MG Oral Tablet (Ativan)Indicati ons:NEVA (generalized anxiety disorder) TAKE 1 TABLET BY MOUTH AT BEDTIME NEEDED FOR ANXIETY. CAN TAKE 1/2 TABLET OR 1 TABLET 20 Tablet 4 024 Discontin ued(Refil l) Gabapentin 100 MG Oral Capsule (Neurontin)Indic ations:Lumbar radicular pain TAKE 1 CAPSULE BY MOUTH TWO TIMES DAILY 60 Capsule 5 4 024 Discontin ued(Refil l) documented as of this encounter (statuses as of 01/07/2024) Active Problems Problem Noted Date Diagnosed Date [...] as of this encounter (statuses as of 01/07/2024) Resolved Problems Problem Noted Date Diagnosed Date [...] as of this encounter (statuses as of 01/07/2024) Immunizations Name Administration Dates Next Due H1N1 [...] in the Last Year Never true 01/08/2019 Comments No Sex and Gender Information Value Date Recorded Sex Assigned at Not on file Legal Sex Female 6:19 AM EST Gender Identity Not on file Sexual Orientation Not on file 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 Should keep scheduled follow up 02/17. Last office visit 05/14/23 via telephone. * Addendum Note - Tammy Turner CPhT - 12/25/2023 3:16 PM ESTAddended by: TAMMY [...] the medication was ordered: 08/13/23 Pharmacy: [id number] Is this request for a controlled substance?No [...] for refill Thank You, Alivia Coreas CPhT Language Specialist III [facility] documented in this encounter Plan of Treatment Upcoming Encounters Date Type Department Care Team (Late st Contact Info) Description 02/18/2024 9:30 AM EST Telemedicine [facility], [facility] [address] [place] [address] Suzanne Oquendo PA-C [address] [place] [address] 03/25/2024 4:00 PM EST Office Visit Family Practice [facility] [address] [place] [address] Vidal Card MD [address] [place] [address] Health Maintenance Due Date Last Done Comments [...] unspecified documented in this encounter Care Teams Coal Gasification Technician Relationship Specialty Start Date End Date Vidal Card MD [address] [place] [address] PCP - General Family Medicine 01/08/19 documented as of this encounter
--- OUTSIDE RECORDS SUMMARY | 2024-01-10 06:09 | External Medical Summary | Summary of Care ---
Author Name Unknown Organization [facility] Address [address] [facility] [address] Phone [phone] Care Team Providers Care Registered Nurse Behavioral Health Name Role Phone Vidal Card MD Primary Care Provider [phone] [phone] Reason for Visit * Reason Comments Hospital Follow-Up Possible cellulitis in leg Still has the irration on her R leg Not as swollen today Encounter Details Date Type Department Care Team (Late st Contact Info) Description 01/05/2024 10:00 AM EST Office Visit Family [facility] [address] [place] [address] Vidal Card MD [address] [place] [address] Cellulitis of right anterior lower leg*; NEVA (generalized anxiety disorder) Allergies No known active allergiesdocumented as of this encounter (statuses as of 01/06/2024) Medications CALCIUM 500/D 500-200 MG-UNIT OR TABS [...] TIMES DAILY 60 Capsule 5 4 Active Cephalexin 500 MG Oral Capsule Take 1 Capsule by mouth in the morning and 1 Capsule before bedtime. Do all this for 10 days. 20 Capsule 4 01/15/20 24 Active LORazepam 0.5 MG Oral Tablet (Ativan)Indicatio ns:NEVA (generalized anxiety disorder) TAKE 1 TABLET BY MOUTH AT BEDTIME NEEDED FOR ANXIETY. CAN TAKE 1/2 TABLET OR 1 TABLET 60 Tablet 4 Active LORazepam 0.5 MG Oral Tablet (Ativan)Indicatio ns:NEVA (generalized anxiety disorder) TAKE 1 TABLET BY MOUTH AT BEDTIME NEEDED FOR ANXIETY. CAN TAKE 1/2 TABLET OR 1 TABLET 20 Tablet 4 01/05/20 24 Discontinu ed(Refill) documented as of this encounter (statuses as of 01/06/2024) Active Problems Problem Noted Date Diagnosed Date [...] as of this encounter (statuses as of 01/06/2024) Resolved Problems Problem Noted Date Diagnosed Date [...] as of this encounter (statuses as of 01/06/2024) Immunizations Name Administration Dates Next Due H1N1 [...] Sign Reading Time Taken Comments Blood Pressure 142/62 01/05/2024 10:20 AM EST Pulse 101 01/05/2024 10:20 AM EST Temperature 38.3 C (101 F) 01/05/2024 10:20 AM ES T Respiratory Rate 16 01/05/2024 10:20 AM EST Oxygen Saturation 93% 01/05/2024 10:20 AM EST Inhaled Oxygen Concentration - - Weight 67.1 kg (148 lb) 01/05/2024 10:20 AM EST Height 156.2 cm (5' 1.5") 01/05/2024 10:20 AM ES T Body Mass Index 27.51 01/05/2024 10:20 AM EST documented in this encounter Progress Notes * Vidal Card MD - 01/06/2024 1:15 PM EST SUBJECTIVE: Rina You is a 78 year old female. Chief Complaint Patient presents with Hospital Follow-Up Possible cellulitis in leg Still has the irration on her R leg Not as swollen today HPI: Here for ER follow up. Patient's daughter noticed redness and swelling and told her to go to the ERto see if she has a DVT. Ultrasound in ER negative for DVT, however she was not given any medication for the redness and swelling which has clearly become a cellulitis. No fevers/chills. Patient Active Problem List Diagnosis Paroxysmal SVT (supraventricular tachycardia) ([facility]) Gastroesophageal reflux disease with esophagitis Dyslipidemia NEVA (generalized anxiety disorder) Primary osteoarthritis of both knees Type 2 diabetes mellitus with hemoglobin A1c goal of less than 8.0% ([facility]) HTN, goal below 130/80 Overweight (BMI 25.0-29.9) Spinal stenosis of lumbar region without neurogenic claudication Persistent insomnia Current Outpatient Medications Medication Sig Dispense Refill CALCIUM 500/D 500-200 MG-UNIT OR TABS 2 daily 0 VITAMIN E 400 UNIT OR CAPS 0 MULTIPLE VITAMIN ESSENTIAL OR TABS 0 Probiotic & Acidophilus Ex St Oral Capsule Take 1 Capsule by mouth in the morning and 1 Capsuleat noon and 1 Capsule in the evening. Take with meals. Citalopram Hydrobromide 10 MG Oral Tablet (CeleXA) Take 1 Tablet by mouth in the morning. In the morning.. 100 Tablet 3 Atorvastatin Calcium 20 MG Oral Tablet (Lipitor) TAKE 1 TABLET BY MOUTH IN THE MORNING 90 Tablet 3 Gabapentin 100 MG Oral Capsule (Neurontin) TAKE 1 CAPSULE BY MOUTH TWO TIMES DAILY 60 Capsule 5 Cephalexin 500 MG Oral Capsule Take 1 Capsule by mouth in the morning and 1 Capsule before bedtime.Do all this for 10 days. 20 Capsule 0 LORazepam 0.5 MG Oral Tablet (Ativan) TAKE 1 TABLET BY MOUTH AT BEDTIME NEEDED FOR ANXIETY. CAN TAKE 1/2 TABLET OR 1 TABLET 60 Tablet 0 No current facility-administered medications for this visit. Allergy: Review of patient's allergies indicates: No Known Allergies OBJECTIVE: BP 142/62 | Pulse 101 | Temp (!) 38.3 C (101 F) | Resp 16 | Ht 1.562 m (5' 1.5") | Wt 67.1 kg (148 lb) | SpO2 93% | BMI 27.51 kg/m | BSA 1.71 m Gen:nad Lungs: ctab Heart: rrr, no mrg Ext: well circumscribed area of erythema and warmth of right anterior calf; no open sores or skin weeping ASSESSMENT AND PLAN: (L03.115) Cellulitis of right anterior lower leg (primary encounter diagnosis) Plan: will treat with keflex; warning signs of worsening infection discussed (F41.1) NEVA (generalized anxiety disorder) Plan: LORazepam 0.5 MG Oral Tablet (Ativan) Follow up as needed. No other complaints were offered at this time. Vidal Card MD documented in this encounter Nursing Notes * Elentia Velez LPN - 01/05/2024 10:25 AM EST The patient has been properly identified by confirmation of name and date of . Chief Complaint Patient presents with Hospital Follow-Up Possible cellulitis in leg Still has the irration on her R leg Not as swollen today documented in this encounter Plan of Treatment Upcoming Encounters Date Type Department Care Team (Late st Contact Info) Description 02/18/2024 9:30 AM EST Telemedicine [facility] [place] [id number] Suzanne Oquendo PA-C [address] [place] [address] 03/25/2024 4:00 PM EST Office Visit [facility] [address] [place] [address] Vidal Card MD [address] [place] [address] Health Maintenance Due Date Last Done Comments [...] as of this encounter Visit Diagnoses Diagnosis Cellulitis of right anterior lower leg- Primary Cellulitis and abscess of leg, except foot NEVA (generalized anxiety disorder) Generalized anxiety disorder documented in this encounter Care Teams Registered Nurse Behavioral Health Relationship Specialty Start Date End Date Vidal Card MD [address] [place] [address] [address] PCP - General Family Medicine 01/08/19 documented as of this encounter
--- OUTSIDE RECORDS SUMMARY | 2024-01-10 06:10 | External Medical Summary | Summary of Care ---
Author Name Unknown Organization [facility] Address [address] [place] [address] Phone [phone] Care Team Providers Care Director Appointment Name Role Phone Vidal Card MD Primary Care Provider [phone] [phone] Encounter Details Date Type Department Care Team (Late st Contact Info) Description 08/21/2023 Orders Only Family Practice [facility] [address] [facility] [address] Vidal Card MD [address] [facility] [place] [address] Allergies No known active allergiesdocumented as of this encounter (statuses as of 08/21/2023) Medications Medication Sig Dispensed Refills Start Date [...] in the evening. Take with meals. Active methylPREDNISolone 4 MG Oral Tablet Therapy Pack (Medrol Dosepack) follow package directions 21 Tablet 04/10/2023 Active Citalopram Hydrobromide 10 MG Oral Tablet (CeleXA) Take 1 Tablet by mouth in the morning. In the morning.. 100 Tablet 3 04/10/2023 Active Atorvastatin Calcium 20 MG Oral Tablet (Lipitor) TAKE 1 TABLET BY MOUTH IN THE MORNING 90 Tablet 3 04/10/2023 Active LORazepam 0.5 MG Oral Tablet (Ativan)Indications: NEVA (generalized anxiety disorder) TAKE 1 TABLET BY MOUTH AT BEDTIME NEEDED FOR ANXIETY. CAN TAKE 1/2 TABLET OR 1 TABLET 20 Tablet 04/10/2023 Active Gabapentin 100 MG Oral Capsule (Neurontin)Indicatio ns:Lumbar radicular pain TAKE 1 CAPSULE BY MOUTH TWO TIMES DAILY 60 Capsule 5 08/13/2023 Active documented as of this encounter (statuses as of 08/21/2023) Active Problems Problem Noted Date Diagnosed Date [...] as of this encounter (statuses as of 08/21/2023) Resolved Problems Problem Noted Date Diagnosed Date Resolved Date Sacroiliitis 01/08/2019 10/05/2021 Prediabetes 04/03/2017 01/08/2019 Overview: Per Prediabetes protocol #1 Mixed dyslipidemia 08/30/2005 12/ 9 Overview: Per Lipid Taxonomy. Anxiety state 08/30/2005 01/08/2019 Headache 08/30/2005 12/25/2018 Overview: ICD-10 update of inactive term ADVANCE DIRECTIVE INFORMATION 07/25/2004 01/08/2019 Overview: Yes, Patient instructed to provide copy of advance directive for provider to review and to be scanned into Electronic Medical Record documented as of this encounter (statuses as of 08/21/2023) Immunizations Name Administration Dates Next Due H1N1 2009 Influenza, Intranasal 12/20/2008 Pneumococcal Conjugate Vacc, 13 Valent (Prevnar) 02/15/2016 Seasonal Influenza, PF, 6 M & above, IM , (FluLaval or Fluzone) 12/03/2018 Seasonal Influenza, Quadriva lent Hd (Fluzone Hd) 11/29/2021 Seasonal Influenza, Quadriva lent, No Preserve, IM 11/22/2015,11/19/2014 Seasonal Influenza, Split, I IV3, With Preserve, Inj 11/19/2013,11/19/2012,12/03/2010,2009,11/05/2008,11/29/2006 TDAP, Age 7 and older, IM [...] 9:30 AM EST Telemedicine [facility], [facility] [address] [address] Suzanne Oquendo PA-C [address] [place] [address] 03/25/2024 4:00 PM EST Office Visit Family [facility] [address] [place] [address] Vidal Card MD [address] [place] [address] Health Maintenance Due Date Last Done Comments DXA Scan 1945 Diabetic Foot Exam 1965 Hepatitis C Screening 1965 Zoster Vaccines (1 of 2) 1997 Pneumococcal Vaccine: 65+ Years (2 of 2 - PPSV23 or PCV20) 04/11/2016 02/15/2016 DTaP,Tdap,and Td Vaccines (2 - Td or Tdap) 01/20/2018 01/21/2008 Depression Screening 01/09/2020 01/08/2019 Albumin/Creatinine Ratio 10/05/2022 10/05/2021 COVID-19 Vaccine ( season) 2023 01/16/2023, 04/05/2022, 02/02/2021 HbA1c 09/29/2023 03/31/2023, 09/19, 01/08/2019, Additional history exists Influenza Vaccine (FLU shot) (#1) 2023 11/22/2022, 11/29/2021, 12/03/2018, Additional history exists Diabetic Eye Exam 02/06/2024 02/05/2023 GFR 03/31/2024 03/31/2023, 09/19, 02/10/2016, Additional history exists GARDASIL-HPV IMMUNIZATION SERIES Aged Out No longer eligible based on patient's age to complete this topic Hepatitis B Aged Out No longer eligi ble based on patient's age to complete this topic MENINGOCOCCAL (MENACTRA/MENVEO) Aged Out No longer eligible based on patient's age to complete this topic documented as of this encounter Medical Devices Not on filedocumented as of this encounter Procedures Procedure Name Priority Date/Time Associated Diagnosis Comments DIABETIC EYE EXAM Routine 02/05/2023 documented in this encounter Results * DIABETIC EYE EXAM (02/05/2023) 02/05/2023 Pam Kelsey OD OTHER OUTSIDE LAB (SEE SCANNED REPORT) documented in this encounter Care Teams Director Appointment Relationship Specialty Start Date End Date Vidal Card MD [address] [place] [address] PCP - General Family Medicine 01/08/19 documented as of this encounter
--- OUTSIDE RECORDS SUMMARY | 2024-01-10 06:10 | External Medical Summary | Summary of Care ---
Author Name Unknown Organization [facility] Address [address] [place] [address] Phone [phone] Care Team Providers Care Painter Rough Name Role Phone Vidal Card MD Primary Care Provider [phone] [phone] Reason for Referral * Evaluate & Treat - Unlimited Visits (Within 30 days (routine)) - Authorized Specialty Diagnoses / Procedures Referred By Sandra polanco Referred To Contact Podiatry Diagnoses Diabetic foot (HCC) Vidal Card MD [address] [facility] [address] Referral ID Status Reason Start Date Expiration Date Visits Requested Visits Authorized [id number] Authorized Specialty Services Required 08/17/[phone] Question Answer Referral Priority Within 30 days (routine) Where should this appointment be scheduled? External Which condition are you referring this patient for? Diabetic foot care/pain Specific condition? Diabetic Foot care Medicare Patient? Yes Can Patient perform routine footcare without assistance? No Does patient have a chronic condition? Yes Has patient been seen in the past 6 months? Yes Date last seen for chronic condition: 04/10/2023 Who saw patient for chronic condition? Dr. Vidal Card Reason for Visit * Reason Onset Date Comments Advice 08/17/2023 Encounter Details Date Type Department Care Team (Late st Contact Info) Description 08/17/2023 Telephone Family Practice [facility] [address] [place] [address] Vidal Card MD [address] [email or web address] [place] [address] Advice Allergies No known active allergiesdocumented as of this encounter (statuses as of 08/20/2023) Medications Medication Sig Dispensed Refills Start Date [...] as of this encounter (statuses as of 08/20/2023) Active Problems Problem Noted Date Diagnosed Date [...] as of this encounter (statuses as of 08/20/2023) Resolved Problems Problem Noted Date Diagnosed Date [...] as of this encounter (statuses as of 08/20/2023) Immunizations Name Administration Dates Next Due H1N1 [...] as of this encounter Miscellaneous Notes * Telephone Encounter - Christine Henriquez OSA - 08/20/2023 12:44 PM EDT Podiatry referral faxed * Telephone Encounter - Anais Daley LPN - 08/17/2023 1:51 PM EDT Podiatry referral pended Scheduling - can you help with rescheduling pain management? * Telephone Encounter - Christine Henriquez OSA - 08/17/2023 12:[address] order[address] The cellar supervisor at [facility] are not taking new DM foot care pts, there is a local office [email or web address] podiatry she can call to schedule with! * Telephone Encounter - Frida Bates LPN - 08/17/2023 10:25 AM EDT I spoke to patient for a care gaps follow up. Patient would like to be referred to podiatry at [facility] for a corn/diabetic foot exam. Also she needs to have a follow up scheduled with pain management and she is having trouble getting through to them to get it scheduled. Can someone assist her with appointments. Thank you, Frida Bates LPN Care Gaps Department documented in this encounter Plan of Treatment Upcoming Encounters Date Type Department Care Team (Late st Contact Info) Description 02/18/2024 9:30 AM EST Telemedicine Interventional Pain Center, [facility] [address] [place] [address] Suzanne Oquendo PA-C [address] [place] [address] 03/25/2024 4:00 PM EST Office Visit Family Practice [facility] [address] [place] [address] Vidal Card MD [address] [place] [address] Scheduled Referrals Name Type Priority Associated Diagnoses Orde r Schedule PODIATRY REFERRAL OP Referral Within 30 days (routine) Diabetic foot (HCC) Ordered: 08/17/2023 Health Maintenance Due Date Last Done Comments DXA Scan 1945 Diabetic Eye Exam 1965 Diabetic Foot Exam 1965 Hepatitis C Screening [...] 2023 11/22/2022, 11/29/2021, 12/03/2018, Additional history exists GFR 03/31/2024 03/31/2023, 09/19, 02/10/2016, Additional history [...] as of this encounter Visit Diagnoses Diagnosis Diabetic foot (HCC)- Primary Type II or unspecified type diabetes mellitus with other specified manifestations, not stated as uncontrolled documented in this encounter Care Teams Painter Rough Relationship Specialty Start Date End Date Vidal Card MD [address] [facility] [place] [address] PCP - General Family Medicine 01/08/19 documented as of this encounter
--- OUTSIDE RECORDS SUMMARY | 2024-01-10 06:10 | External Medical Summary | Summary of Care ---
Author Name Unknown Organization [facility] Address [address] [facility] [place] [address] Phone [phone] Care Team Providers Care Greenhouse Assistant Name Role Phone Vidal Card MD Primary Care Provider [phone] [phone] Reason for Visit * Reason Comments eRx-Medication Refill Encounter Details Date Type Department Care Team (Late st Contact Info) Description 08/12/2023 Refill Interventional Pain Center, [facility] [address] [place] [address] Suzanne Oquendo PA-C [address] [place] [address] Lumbar radicular pain Allergies No known active allergiesdocumented as of this encounter (statuses as of 08/13/2023) Medications Medication Sig Dispensed Refills Start Date [...] in the evening. Take with meals. Active methylPREDNISolon e 4 MG Oral Tablet Therapy Pack (Medrol Dosepack) follow package directions 21 Tablet 04/10/2023 Active Citalopram Hydrobromide 10 MG Oral Tablet (CeleXA) Take 1 Tablet by mouth in the morning. In the morning.. 100 Tablet 3 04/10/2023 Active Atorvastatin Calcium 20 MG Oral Tablet (Lipitor) TAKE 1 TABLET BY MOUTH IN THE MORNING 90 Tablet 3 04/10/2023 Active LORazepam 0.5 MG Oral Tablet (Ativan)Indicatio ns:NEVA (generalized anxiety disorder) TAKE 1 TABLET BY MOUTH AT BEDTIME NEEDED FOR ANXIETY. CAN TAKE 1/2 TABLET OR 1 TABLET 20 Tablet 04/10/2023 Active Gabapentin 100 MG Oral Capsule (Neurontin)Indica tions:Lumbar radicular pain TAKE 1 CAPSULE BY MOUTH TWO TIMES DAILY 60 Capsule 5 08/13/2023 Active Gabapentin 100 MG Oral Capsule (Neurontin)Indica tions:Lumbar radicular pain TAKE 1 CAPSULE BY MOUTH TWO TIMES DAILY 60 Capsule 5 02/09/2023 4 Discontinued documented as of this encounter (statuses as of 08/13/2023) Active Problems Problem Noted Date Diagnosed Date [...] as of this encounter (statuses as of 08/13/2023) Resolved Problems Problem Noted Date Diagnosed Date [...] as of this encounter (statuses as of 08/13/2023) Immunizations Name Administration Dates Next Due H1N1 [...] encounter Miscellaneous Notes * Telephone Encounter - Angelique Daigle LPN - 08/13/2023 3:32 PM EDT Left message for patient to call back to schedule office visit/telephonic * Telephone Encounter - Suzanne Oquendo PA-C - 08/13/2023 3:26 PM EDTSigned Prescriptions: Disp Refills Gabapentin 100 MG Oral Capsule (Neurontin) 60 Cap*5 Sig: TAKE 1 CAPSULE BY MOUTH TWO TIMES DAILY Authorizing Provider: SUZANNE OQUENDO * Telephone Encounter - Angelique Daigle LPN - 08/13/2023 8:49 AM EDTPending Prescriptions: Disp Refills Gabapentin 100 MG Oral Capsule [Pharmacy M*60 Cap*5 Sig: TAKE 1 CAPSULE BY MOUTH TWO TIMES DAILY documented in this encounter Plan of Treatment Health Maintenance Due Date Last Done Comments [...] 09/29/2023 03/31/2023, 09/19, 01/08/2019, Additional history exists GFR 03/31/2024 03/31/2023, 09/19, 02/10/2016, Additional history exists Influenza Vaccine (FLU shot) Completed 05/2022, 11/29/2021, 12/03/2018, Additional history exists GARDASIL-HPV IMMUNIZATION SERIES Aged [...] unspecified documented in this encounter Care Teams Greenhouse Assistant Relationship Specialty Start Date End Date Vidal Card MD [address] [place] [address] PCP - General Family Medicine 01/08/19 documented as of this encounter
--- OUTSIDE RECORDS SUMMARY | 2024-01-10 06:10 | External Medical Summary | Summary of Care ---
Author Name Unknown Organization [facility] Address [address] [place] [address] Phone [phone] Care Team Providers Care Food Service Employee Name Role Phone Vidal Card MD Primary Care Provider [phone] [phone] Reason for Visit * Reason Onset Date Comments Health Maintenance 08/17/2023 Encounter Details Date Type Department Care Team (Late st Contact Info) Description 08/17/2023 Telephone Family Practice [facility] [address] [address] [place] [id number] Vidal Card MD [address] [address] [place] [address] Health Maintenance Allergies No known active allergiesdocumented as of this encounter (statuses as of 08/17/2023) Medications Medication Sig Dispensed Refills Start Date [...] as of this encounter (statuses as of 08/17/2023) Active Problems Problem Noted Date Diagnosed Date [...] as of this encounter (statuses as of 08/17/2023) Resolved Problems Problem Noted Date Diagnosed Date Resolved Date Sacroiliitis 01/08/2019 10/05/2021 Prediabetes 04/03/2017 01/08/2019 Overview: Per Prediabetes protocol #1 Mixed dyslipidemia 08/30/2005200 9 Overview: Per Lipid Taxonomy. Anxiety state 08/30/2005 01/08/2019 Headache 08/30/2005 12/25/2018 Overview: ICD-10 update of inactive term ADVANCE DIRECTIVE INFORMATION 07/25/2004 01/08/2019 Overview: Yes, Patient instructed to provide copy of advance directive for provider to review and to be scanned into Electronic Medical Record documented as of this encounter (statuses as of 08/17/2023) Immunizations Name Administration Dates Next Due H1N1 [...] encounter Miscellaneous Notes * Telephone Encounter - Frida BatesDEVANG - 08/17/2023 9:56 AM EDT Care Gaps Comprehensive Care Outreach Last Office/Telemedicine Visit: 04/10/2023 (in office), Visit date not found (telemedicine) Next Office Visit: Visit date not found Hemoglobin AIC Results: Lab Results Component Value Date/Time HEMOGLOBIN A1C - [facility] 6.5 (H) 03/31/2023 08:21 AM HEMOGLOBIN A1C - [facility] 6.8 (H) 10/05/2021 11:00 AM HEMOGLOBIN A1C - [facility] 6.7 (H) 01/08/2019 09:35 AM HEMOGLOBIN A1C - [facility] 6.0 09/17/2014 08:13 AM HEMOGLOBIN A1C - [facility] 5.9 08/25/2013 08:09 AM BP Readings from Last 1 Encounters: 04/10/23 132/72 Reviewed Health Maintenance below: Health Maintenance Topic Date Due DXA Scan Never done Diabetic Eye Exam Never done Diabetic Foot Exam Never done Hepatitis C Screening Never done Zoster Vaccines (1 of 2) Never done Pneumococcal Vaccine: 65+ Years (2 of 2 - PPSV23 or PCV20) 04/11/2016 DTaP,Tdap,and Td Vaccines (2 - Td or Tdap) 01/20/2018 Depression Screening 01/09/2020 Albumin/Creatinine Ratio 10/05/2022 COVID-19 Vaccine ( season) 2023 HbA1c 09/29/2023 Ov mar is year Eye alexandr requested Dexa Labs ordered she will walk in Awv declined Care Gap Outreach Action Taken: Spoke to patient documented in this encounter Plan of Treatment Upcoming Encounters Date Type Department Care Team (Late st Contact Info) Description 03/25/2024 4:00 PM EST Office Visit Family Practice [facility] [address] [address] Vidal Card MD [address] [place] [address] Scheduled Orders Name Type Priority Associated Diagnoses Orde r Schedule HEMOGLOBIN A1C Lab Routine Diabetes mellitus (HCC) Expected: 09/20/2023, Expires: 08/16/2024 ALBUMIN / CREATININE RATIO, URINE Lab Routine Screening for nephropathy Expected: 09/20/2023, Expires: 08/16/2024 Health Maintenance Due Date Last Done Comments [...] as of this encounter Visit Diagnoses Diagnosis Diabetes mellitus (HCC)- Primary Type II or unspecified type diabetes mellitus without mention of complication, not stated as uncontrolled Screening for nephropathy documented in this encounter Care Teams Food Service Employee Relationship Specialty Start Date End Date Vidal Card MD [address] [address] PCP - General Family Medicine 01/08/19 documented as of this encounter
--- OUTSIDE RECORDS SUMMARY | 2024-01-10 06:10 | External Medical Summary | Summary of Care ---
Author Name Unknown Organization [facility] Address [address] [facility] [address] Phone [phone] Care Team Providers Care Business Systems Manager Name Role Phone Vidal Card MD Primary Care Provider [phone] [phone] Reason for Visit * Reason Onset Date Comments Medication Management 10/26/2023 Encounter Details Date Type Department Care Team (Late st Contact Info) Description 10/26/2023 Telephone Interventional Pain Center, [facility] [address] [place] [address] Suzanne Oquendo PA-C [address] [place] [address] Medication Management Allergies No known active allergiesdocumented as of this encounter (statuses as of 10/26/2023) Medications Medication Sig Dispensed Refills Start Date [...] as of this encounter (statuses as of 10/26/2023) Active Problems Problem Noted Date Diagnosed Date [...] as of this encounter (statuses as of 10/26/2023) Resolved Problems Problem Noted Date Diagnosed Date [...] as of this encounter (statuses as of 10/26/2023) Immunizations Name Administration Dates Next Due H1N1 [...] encounter Miscellaneous Notes * Telephone Encounter - Alivia Coreas CPhT - 10/26/2023 10:33 AM EDT Incoming call from patient for gabapentin refill request, advised last Rx had been written with 5 refills Patient will call pharmacy for refill Thank You, Alivia Coreas CPhT Child Development Instructor III [facility] documented in this encounter Plan of Treatment Upcoming Encounters Date Type Department Care Team (Late st Contact Info) Description 10/26/2023 12:20 PM EDT Office Visit [facility] [address] [place] [address] Elena Choi CRNP [address] [place] [address] 02/18/2024 9:30 AM EST Telemedicine Interventional Pain Center, [facility] [address] [place] [address] Suzanne Oquendo PA-C [address] [place] [address] 03/25/2024 4:00 PM EST Office Visit [facility] [address] [place] [address] Vidal Card MD [address] [place] [address] Health Maintenance Due Date Last Done Comments [...] Not on filedocumented as of this encounter Care Teams Business Systems Manager Relationship Specialty Start Date End Date Vidal Card MD [address] [place] [address] PCP - General Family Medicine 01/08/19 documented as of this encounter
[2024-01-10 07:02] LABS: BUN Creatinine Ratio 21.1 (10-20); Calcium 8.2 mg/dl (8.6-10.3); Creatinine Clr Calc Pharmacy 79.5 ml/min; Phosphorus 2.3 mg/dl (2.5-4.9); Potassium 3.6 mmol/L (3.5-5.1)
[2024-01-10 07:05] LABS: Estimated Average Glucose 169 mg/dl; Hemoglobin A1C 7.5 % (4.5-5.6)
[2024-01-10 07:16] LABS: Thyroid Stimulating Hormone 0.65 uIu/ml (0.300-4.500)
[2024-01-10 07:19] LABS: Folate (Folic Acid),Ser orPlas > 22.30 ng/ml (>5.38)
[2024-01-10 07:20] LABS: Vitamin B12 651 pg/ml (180-914)
[2024-01-10 07:22] LABS: Ferritin 661.9 ng/ml (8-388)
--- NOTE | 2024-01-10 07:42 | Hospitalist Progress Note ---
Date of Service January 10, 2024 Assessment & Plan (1) Failure of outpatient treatment: (2) Cellulitis of right lower extremity: Plan Rina You is a 78y/o F with PMHx significant for diet-controlled DM type II, dyslipidemia, paroxysmal SVT, HTN, GERD with esophagitis, primary osteoarthritis of both knees, NEVA, persistent insomnia and sacroiliitis who presented to the ED via EMS for evaluation of right lower extremity pain and erythema. She was recently diagnosed with right lower extremity cellulitis by her PCP over the weekend and has failed an outpatient course of oral Keflex. Please refer to the HPI for further details. RLE Cellulitis, Failure of O/P Treatment: No evidence of sepsis on admission. CXR negative. Procalcitonin/lactate both negative. RLE venous doppler ultrasound negative for DVT. S/p 2g IV Rocephin in the ED. Started w/ IV Unasyn on admission , cont. Blood cultures pending. She feels better today and says RLE tenderness is improved will further discuss w/ ID given her neutropenia L Calf Pain: Patient with some L calf pain and TTP in this region on exam on admission. LLE venous doppler ultrasound obtained - no DVT. No previous history of DVT/PE per the patient. Tenderness seems to be resolved now. Pancytopenia: WBC 2.92k, RBC 2.84, hemoglobin 9.7 and platelet count 102 on admission. Per review of outpatient records on [facility], it appears patient has not been pancytopenic in the past. Patient also denies ever having this problem. However, notably her WBC was 3.73k back in March of this year. Routine anemia workup ordered on admission. B12 and folate levels normal, rest of the panel pending. TSH wnl. Will obtain peripheral smear and will consult w/ heme/onc Will ultimately need close outpatient follow up regarding this finding. Diet-Controlled DM Type II: No home diabetic agents, SSI while inpatient. Hgb A1c 6.5% ~9 months ago per chart review. Current A1c 7.5% BSG checks ACHS. Other Chronic Medical Conditions: HLD/NEVA --> Can continue home medications for these specific conditions. Can also continue home gabapentin for neuropathic pain. DVT Prophylaxis: SCDs/TEDs for now ISO pancytopenia. Code Status: FULL CODE PCP: Vidal Card MD Disposition: Admit to Med/Surg - Likely to be admitted for 1 to 2 days depending on her clinical course. Admission and Anticipated Discharge Date Admission Date: January 09, 2024 Subjective Pt seen in follow up of R LE cellulitis Pt w/ fever overnight (was afebrile before) Pancytopenic, neutropenic She is laying in bed in NAD Reports feeling better, says tenderness of R LE is much improved/ resolved No chest pain, shortness of breath, abd. pain, n/v Review of Systems Review of Systems: All systems reviewed & are unremarkable except as noted in Subjective Physical Exam Physical Exam: General: WD/WN F in NAD HEENT: NC/AT. Conjunctivae normal, anicteric sclerae. External ear and nose normal Respiratory: Normal respiratory effort, lungs clear to auscultation. Cardiovascular: Regular rate, rhythm, no murmur, normal peripheral pulses, no BLE edema. Abdomen/GI: Normal bowel sounds, soft, nontender to palpation in all quadrants. Extremities/MSK: Erythema along R medial calf region, mild RLE swelling/warm to the touch - nontender to palp (tenderness resolved) Neurologic: awake, alert, oriented, answers appropriately, no facial asymmetry, moves extremities Results & Data Results & Data Vital Signs (Past 12 Hours) Vital Signs Temp Pulse Pulse Resp BP Pulse Ox O2 Del Method 01/10/24 07:26 37.2 C 83 16 117/63 93 Nasal Cannula 01/10/24 05:50 39.3 C H 01/09/24 20:17 37.0 C 80 18 145/72 H 96 Nasal Cannula O2 Flow Rate 01/10/24 07:26 2 01/10/24 05:50 01/09/24 20:17 Laboratory Results 01/10/24 01/09/24 01/09/24 Range/Units 05:37 20:39 18:11 WBC Pending (4.8-10.8) K/ul RBC Pending (4.20-5.40) M/uL Hgb Pending (12.0-16.0) g/dl Hct Pending (37.0-47.0) % MCV Pending (80.0-100.0) fL MCH Pending (25.0-34.0) pg MCHC Pending (32.0-36.0) g/dL RDW Std Deviation (36.4-46.3) fL RDW Coeff of Patti (11.5-14.5) % Plt Count Pending (130-400) K/uL MPV (9.4-12.4) fL Reticulocyte % (Auto) Pending Reticulocyte # Pending Neutrophils % (Manual) % Lymphocytes % (Manual) % Reactive Lymphs % (Man) % Monocytes % (Manual) % Neutrophils # (Manual) (1.40-6.50) K/uL Total Absolute Neuts (1.4-6.5) K/uL Lymphocytes # (Manual) (1.2-3.4) K/uL Reactive Lymphs # K/uL Total Abs Lymphocytes (1.2-3.4) K/uL Monocytes # (Manual) (0.11-0.59) K/uL PT (9.0-12.0) Seconds INR (0.9-1.1) APTT (21-31) Seconds PTT Ratio Sodium 135 L (136-145) mmol/L Potassium 3.6 (3.5-5.1) mmol/L Chloride 101 (98-107) mmol/L Carbon Dioxide 27 (21-32) mmol/L Anion Gap 7 (3-11) BUN 12 (6-23) mg/dl Creatinine 0.57 L (0.6-1.2) mg/dl Est Cr Clr Drug Dosing 79.5 eGFR 94.12 BUN/Creatinine Ratio 21.1 H (10-20) Glucose 209 H (70-99(Fasting)) mg/dl POC Glucose 188 H 174 H (70-99) mg/dl Estimat Average Glucose 169 mg/dl Hemoglobin A1c 7.5 H (4.5-5.6) % Lactate (0.4-2.0) mmol/L Calcium 8.2 L (8.6-10.3) mg/dl Phosphorus 2.3 L (2.5-4.9) mg/dl Magnesium 2.0 (1.7-2.4) mg/dl Iron 32 L (35-150) mcg/dl TIBC 244 L (250-450) mcg/dl Unsaturated IBC 212 (155-355) mcg/dl Transferrin % Sat 13 L (15-50) % Ferritin 661.9 H (8-388) ng/ml Total Bilirubin (0.2-1.0) mg/dl AST (13-39) U/L ALT (7-52) U/L Alkaline Phosphatase (34-104) U/L Troponin I High Sens (0-14) pg/ml Total Protein (6.0-8.3) gm/dl Albumin (3.4-5.0) gm/dl Globulin (2.5-4.0) gm/dl Albumin/Globulin Ratio (0.9-2) Vitamin B12 651 (180-914) pg/ml Folate > 22.30 (>5.38) ng/ml Procalcitonin (0-0.5) ng/ml TSH 0.650 (0.300-4.500) uIu/ml Urine Color Urine Appearance (Clear) Urine pH (4.5-7.5) Ur Specific [place] (1.000-1.030) Urine Protein (Negative) Urine Glucose (UA) (Negative) Urine Ketones (Negative) Urine Blood (Negative) Urine Nitrite (Negative) Urine Bilirubin (Negative) Urine Urobilinogen (Negative) Ur Leukocyte Esterase (Negative) Urine WBC (Auto) (0-5) /hpf Urine RBC (Auto) (0-2) /hpf U Hyaline Cast (Auto) (0-2) /lpf U Epithel Cells (Auto) (0-2) /hpf Urine Bacteria (Auto) (None Seen) 01/09/24 01/09/24 Range/Units 15:07 10:32 WBC 2.92 L (4.8-10.8) K/ul RBC 2.84 L (4.20-5.40) M/uL Hgb 9.7 L (12.0-16.0) g/dl Hct 29.0 L (37.0-47.0) % MCV 102.1 H (80.0-100.0) fL MCH 34.2 H (25.0-34.0) pg MCHC 33.4 (32.0-36.0) g/dL RDW Std Deviation 64.5 H (36.4-46.3) fL RDW Coeff of Patti 17.5 H (11.5-14.5) % Plt Count 102 L (130-400) K/uL MPV 11.8 (9.4-12.4) fL Reticulocyte % (Auto) Reticulocyte # Neutrophils % (Manual) 17 % Lymphocytes % (Manual) 32 % Reactive Lymphs % (Man) 21 % Monocytes % (Manual) 30 % Neutrophils # (Manual) 0.50 L (1.40-6.50) K/uL Total Absolute Neuts 0.50 L* (1.4-6.5) K/uL Lymphocytes # (Manual) 0.93 L (1.2-3.4) K/uL Reactive Lymphs # 0.61 K/uL Total Abs Lymphocytes 1.55 (1.2-3.4) K/uL Monocytes # (Manual) 0.88 H (0.11-0.59) K/uL PT 11.3 (9.0-12.0) Seconds INR 1.0 (0.9-1.1) APTT 28 (21-31) Seconds PTT Ratio 1.0 Sodium 135 L (136-145) mmol/L Potassium 4.2 (3.5-5.1) mmol/L Chloride 99 (98-107) mmol/L Carbon Dioxide 28 (21-32) mmol/L Anion Gap 8 (3-11) BUN 15 (6-23) mg/dl Creatinine 0.64 (0.6-1.2) mg/dl Est Cr Clr Drug Dosing Not Reportable eGFR 91.53 BUN/Creatinine Ratio 23.4 H (10-20) Glucose 172 H (70-99(Fasting)) mg/dl POC Glucose (70-99) mg/dl Estimat Average Glucose mg/dl Hemoglobin A1c (4.5-5.6) % Lactate 1.6 (0.4-2.0) mmol/L Calcium 9.2 (8.6-10.3) mg/dl Phosphorus (2.5-4.9) mg/dl Magnesium 2.2 (1.7-2.4) mg/dl Iron (35-150) mcg/dl TIBC (250-450) mcg/dl Unsaturated IBC (155-355) mcg/dl Transferrin % Sat (15-50) % Ferritin (8-388) ng/ml Total Bilirubin 0.5 (0.2-1.0) mg/dl AST 24 (13-39) U/L ALT 22 (7-52) U/L Alkaline Phosphatase 60 (34-104) U/L Troponin I High Sens 8.6 (0-14) pg/ml Total Protein 7.8 (6.0-8.3) gm/dl Albumin 3.9 (3.4-5.0) gm/dl Globulin 3.9 (2.5-4.0) gm/dl Albumin/Globulin Ratio 1.0 (0.9-2) Vitamin B12 (180-914) pg/ml Folate (>5.38) ng/ml Procalcitonin 0.46 (0-0.5) ng/ml TSH (0.300-4.500) uIu/ml Urine Color Yellow Urine Appearance Cloudy A (Clear) Urine pH 7.0 (4.5-7.5) Ur Specific [place] 1.018 (1.000-1.030) Urine Protein 1+ H (Negative) Urine Glucose (UA) Negative (Negative) Urine Ketones Trace H (Negative) Urine Blood Negative (Negative) Urine Nitrite Negative (Negative) Urine Bilirubin Negative (Negative) Urine Urobilinogen Negative (Negative) Ur Leukocyte Esterase Negative (Negative) Urine WBC (Auto) 0-5 (0-5) /hpf Urine RBC (Auto) 3-5 H (0-2) /hpf U Hyaline Cast (Auto) 0-2 (0-2) /lpf U Epithel Cells (Auto) 6-10 H (0-2) /hpf Urine Bacteria (Auto) None Seen (None Seen) Medications Administered Current Inpatient Medications Acetaminophen (Acetaminophen 500 Mg Tab) 1,000 mg PO Q8H PRN PRN Reason: Pain Stop: 02/08/24 16:59 Last Admin: 01/10/24 05:53 Dose: 1,000 mg Acetaminophen (Acetaminophen 325 Mg Tab) 650 mg PO Q4H PRN PRN Reason: pain/fever Stop: 02/08/24 17:48 Ascorbic Acid (Ascorbic Acid 500 Mg Tab) 500 mg PO QAM [facility] Stop: 02/09/24 08:59 Atorvastatin Calcium (Atorvastatin 20 Mg Tab) 20 mg PO QAM [facility] Stop: 02/09/24 08:59 Calcium/Vitamin D (Calcium 600mg + Vit D 400 Iu Tab) 2 tab PO QAM [facility] Stop: 02/09/24 08:59 Citalopram Hydrobromide (Citalopram 20 Mg Tab) 10 mg PO DAILY [facility] Stop: 02/09/24 08:59 Dextrose (Dextrose 50% 50 Ml Syringe) 25 - 50 ml IV UD PRN; Protocol PRN Reason: Hypoglycemia Protocol Stop: 02/08/24 17:48 Gabapentin (Gabapentin 100 Mg Cap) 100 mg PO BID [place] Stop: 02/08/24 20:59 Last Admin: 01/09/24 21:04 Dose: 100 mg Glucagon (Glucagon For Inj 1 Mg Vial) 1 mg SQ UD PRN; Protocol PRN Reason: Hypoglycemia Protocol Stop: 02/08/24 17:48 Glucose (Glucose 40% Gel 15 Gm Tube) 15 - 30 gm PO UD PRN; Protocol PRN Reason: Hypoglycemia Protocol Stop: 02/08/24 17:48 Glucose (Glucose 10 Tab/Tube) 4 - 8 tab PO UD PRN; Protocol PRN Reason: Hypoglycemia Protocol Stop: 02/08/24 17:48 Ampicillin Sodium/Sulbactam Sodium (Unasyn) 3,000 mg in 100 mls @ 200 mls/hr IV Q6H [place] Stop: 01/16/24 17:59 Last Infusion: 01/10/24 06:26 Dose: Infused Ceftriaxone Sodium (Rocephin) 2,000 mg in 50 mls @ 100 mls/hr IV Q24H [place] Stop: 01/17/24 11:59 Insulin Aspart (Insulin Aspart Per Unit Charge) 0 units SC ACHS [place] Stop: 02/08/24 17:59 Last Admin: 01/09/24 21:04 Dose: 1 units Lactobacillus Acidophilus (Advanced Probiotic 625 Mg Capsule) 1,250 mg PO DAILY [place] Stop: 02/08/24 17:48 Last Admin: 01/09/24 18:46 Dose: 1,250 mg Magnesium Hydroxide (Magnesium Hydroxide Susp 30 Ml Udc) 30 ml PO Q6H PRN PRN Reason: Constipation Stop: 02/08/24 17:48 Miscellaneous (Carbohydrates For Hypoglycemia ) 15 - 30 gm PO UD PRN PRN Reason: Hypoglycemia Protocol Stop: 02/08/24 17:48 Multivitamins (Multivitamin Tab) 1 tab PO QAM [place] Stop: 02/09/24 08:59 Ondansetron HCl (Ondansetron Inj 2 Mg/Ml 2 Ml Vial) 4 mg IV Q6H PRN PRN Reason: Nausea Stop: 02/08/24 17:48 Polyethylene Glycol (Polyethylene (Miralax) 17 Gm Pack) 17 gm PO DAILY PRN PRN Reason: Constipation Stop: 02/08/24 17:48 Vitamin D (Cholecalciferol 125 Mcg (5,000 Units) Tab) [facility] [place] [facility]: 02/09/24 08:59
[2024-01-10 07:47] LABS: Hematocrit (blood only) 26.7 % (37.0-47.0); Mean Corpuscular Hemoglobin 34.6 pg (25.0-34.0); Mean Corpuscular Hgb Conc 33.7 g/dL (32.0-36.0); Mean Corpuscular Volume 102.7 fL (80.0-100.0); Mean Platelet Volume 12.3 fL (9.4-12.4); Platelet Count 88 K/uL (130-400); RDW Coefficient of Variation 17.4 % (11.5-14.5); RDW Standard Deviation 65.4 fL (36.4-46.3); White Blood Count 2.88 K/ul (4.8-10.8)
[2024-01-10] MEDS: MULTIVITAMIN TAB PO SCH (08:14)
[2024-01-10] MEDS: CITALOPRAM 20 MG TAB PO SCH (08:14)
[2024-01-10] MEDS: CALCIUM 600MG + VIT D 400 IU TAB PO SCH (08:15)
[2024-01-10] MEDS: CHOLECALCIFEROL 125 MCG (5,000 UNITS) TAB PO SCH (08:15)
[2024-01-10] MEDS: ATORVASTATIN 20 MG TAB PO SCH (08:16)
[2024-01-10] MEDS: ASCORBIC ACID 500 MG TAB PO SCH (08:16)
[2024-01-10 08:24] LABS: Reticulocyte % 1.28 % (0.50-2.00)
[2024-01-10 08:27] LABS: ALC (manual) 1.79 K/uL (1.2-3.4); ANC (manual) 0.66 K/uL (1.4-6.5); Acanthocytes 1+; Lymphocytes # (manual) 1.24 K/uL (1.2-3.4); Lymphocytes % (manual) 43 %; Monocytes # (manual) 0.43 K/uL (0.11-0.59); Monocytes % (manual) 15 %; Neutrophils # (manual) 0.66 K/uL (1.40-6.50); Neutrophils % (manual) 23 %; Reactive Lymphocytes # (manual) 0.55 K/uL; Reactive Lymphocytes % (manual) 19 %; Tear Drop Cells 1+
--- NOTE | 2024-01-10 10:11 | Oncology Consultation ---
Date of Consultation January 10, 2024 Assessment & Plan (1) Pancytopenia: (2) Cellulitis of right lower extremity: Plan Pancytopenia with macrocytic anemia and neutropenia suggestive of possible MDS/underlying hematologic malignancy. Recommend bone marrow biopsy. Discussed with patient and daughters were agreed with plan. History of Present Illness Reason for Consultation: Pancytopenia Attending Physician: Vick Gutierrez MD History of Present Illness 78-year-old female with medical history significant for diabetes mellitus, dyslipidemia, hypertension, GERD admitted to [facility] for right lower extremity cellulitis failing outpatient course of treatment with Keflex. Labs obtained 01/09/2024 significant for WBC of 2.9, hemoglobin 9.7, hematocrit 29.0 with MCV of 102 and platelet count of 102,000. Of note, ANC was 0.66. Allergies Allergy/AdvReac Type Severity Reaction Status Date / Time No Known Allergies Allergy Mild Verified 12/29/21 10:15 Home Medications Medication Instructions Recorded Confirmed Type acetaminophen 500 mg tablet 500 mg PO HS PRN pain 11/17/19 01/09/24 History ascorbic acid (vitamin C) 500 mg 500 mg PO QAM 11/17/19 01/09/24 History tablet (Vitamin C) calcium 600 mg (as 2 cap PO QAM 11/17/19 01/09/24 History carbonate)-vitamin D3 5 mcg (200 unit) capsule (Calcium 600 + D(3)) calcium carbonate (Tums) 200 mg PO BID PRN Heartburn 11/17/19 01/09/24 History cholecalciferol (vitamin D3) 125 250 mcg PO QAM 11/17/19 01/09/24 History mcg (5,000 unit) tablet (Vitamin D3) ibuprofen 200 mg tablet 600 mg PO QAM PRN Pain 11/17/19 01/09/24 History multivitamin 1 tab PO QAM 11/17/19 01/09/24 History vitamin E 400 unit tablet 400 unit PO QAM 11/17/19 01/09/24 History atorvastatin 20 mg tablet 20 mg PO QAM 01/09/24 01/09/24 History cephalexin 500 mg capsule 500 mg PO BID 01/09/24 01/09/24 History citalopram 10 mg tablet 10 mg PO DAILY 01/09/24 01/09/24 History gabapentin 100 mg capsule 100 mg PO BID 01/09/24 01/09/24 History lorazepam 0.5 mg tablet 0.25 - 0.5 mg PO HS PRN anxiety 01/09/24 01/09/24 History Patient History Medical History Encounter for pre-operative examination SVT (supraventricular tachycardia) History of SVT- s/p 2004- no issues since. Does not need to follow with cardio. Sciatica Right -- follows with Dr Mandel ([place]) Elevated cholesterol Controlled with statin Surgical History S/P epidural steroid injection History of appendectomy H/O cardiac radiofrequency ablation 2004 H/O: hysterectomy MONICA with BSO Family History Other Coronary heart disease Diabetes Leukemia No family history of adverse response to anesthesia Social History Smoking Status: Never smoker Second Hand Exposure: No; Do You Dip or Chew Tobacco: No; Hx Alcohol Use: Yes Alcohol type: wine Hx Substance Use: No Preferred Language: Lithuanian Communication Ability: Effective Visual Impairment: No Limitations General Road Supervisor Required: No Beliefs That Will Affect Care: None marital status: Current Living Situation: Family Feels Safe at Home: Yes Assistive Devices: Hospital Bed Results & Data Vital Signs (Past 12 Hours) Vital Signs Temp Pulse Resp BP Pulse Ox O2 Del Method O2 Flow Rate 01/10/24 07:26 37.2 C 83 16 117/63 93 Nasal Cannula 2 01/10/24 05:50 39.3 C H
[2024-01-10] MEDS: cefTRIAXone SODIUM 2,000 MG/50 ML BAG IV SCH (13:04)
--- NOTE | 2024-01-10 16:16 | Infectious Disease Consult ---
Date of Service January 10, 2024 Telehealth Information I performed this visit using a real-time telehealth connection between my location and the patients location ([facility]). After connecting through interactive tele-video, patient was identified by name and date of and/or wristband check.Patient (or authorized healthcare new accounts representative) was informed that this was a telemedicine visit and it was being conducted confidentially over secure lines. My office door was closed and no one else was present in the room with me.Patient (or authorized healthcare new accounts representative) provided consent to proceed with the visit, expressed an understanding of privacy and security of the telemedicine visit, and gave permission to have a hospital new accounts representative in the room in order to assist with the visit and to conduct portions of the visit, as needed. I informed the patient (or authorized healthcare new accounts representative) that I reviewed their record and presented the opportunity for them to ask any questions regarding the visit today. The patient agreed to participate. Assessment & Plan (1) Cellulitis of right lower extremity: (2) Fever: (3) Pancytopenia: Plan If the only concern at this point is right leg cellulitis, I would recommend stopping all current antibiotics and starting on IV cefazolin. Since the patient is having pancytopenia, I would recommend sending for p eripheral smear to check for parasites and tick-borne panel including Lyme, anaplasmosis and babesiosis. If not done yet, I would recommend sending for hemolytic workup. Thank you for consulting Infectious Disease. We will continue to follow. History of Present Illness History of Present Illness Ms. You is a 78-year-old woman with medical history of type 2 diabetes, dyslipidemia, paroxysmal SVT, HTN, GERD, osteoarthritis bilateral knees, generalized anxiety disorder and insomnia, and sacroiliitis who was admitted to [facility] on 01/09/2024 because of right lower extremity pain and erythema. She mentioned that she started having some pain, swelling and redness over her right calf and had to go to the emergency department at [facility] where they did an ultrasound Doppler which came back negative for DVT. At that time, no antibiotics were prescribed as there was low concern for cellulitis. She was then seen by her PCP few days later and was started on oral Keflex without any significant improvement. On presentation, she was found to be febrile at 39.5, hypertensive at 151/69 and requiring 2 L of oxygen via nasal cannula. Initial workup showed leukocyte count of 2.9 with absolute neutrophils of 0.5 and platelet count of 102. ID team was consulted for further recommendations and to help guide antibiotic treatment. Allergies Allergy/AdvReac Type Severity Reaction Status Date / Time No Known Allergies Allergy Mild Verified 12/29/21 10:15 Home Medications Medication Instructions Recorded Confirmed Type acetaminophen 500 mg tablet 500 mg PO HS PRN pain 11/17/19 01/09/24 History ascorbic acid (vitamin C) 500 mg 500 mg PO QAM 11/17/19 01/09/24 History tablet (Vitamin C) calcium 600 mg (as 2 cap PO QAM 11/17/19 01/09/24 History carbonate)-vitamin D3 5 mcg (200 unit) capsule (Calcium 600 + D(3)) calcium carbonate (Tums) 200 mg PO BID PRN Heartburn 11/17/19 01/09/24 History cholecalciferol (vitamin D3) 125 250 mcg PO QAM 11/17/19 01/09/24 History mcg (5,000 unit) tablet (Vitamin D3) ibuprofen 200 mg tablet 600 mg PO QAM PRN Pain 11/17/19 01/09/24 History multivitamin 1 tab PO QAM 11/17/19 01/09/24 History vitamin E 400 unit tablet 400 unit PO QAM 11/17/19 01/09/24 History atorvastatin 20 mg tablet 20 mg PO QAM 01/09/24 01/09/24 History cephalexin 500 mg capsule 500 mg PO BID 01/09/24 01/09/24 History citalopram 10 mg tablet 10 mg PO DAILY 01/09/24 01/09/24 History gabapentin 100 mg capsule 100 mg PO BID 01/09/24 01/09/24 History lorazepam 0.5 mg tablet 0.25 - 0.5 mg PO HS PRN anxiety 01/09/24 01/09/24 History Patient History Medical History Encounter for pre-operative examination SVT (supraventricular tachycardia) History of SVT- s/p 2004- no issues since. Does not need to follow with cardio. Sciatica Right -- follows with Dr Mandel ([place]) Elevated cholesterol Controlled with statin Surgical History (Reviewed 01/09/24 @ 16:48 by Vladimir Cannon S/P epidural steroid injection History of appendectomy H/O cardiac radiofrequency ablation 2004 H/O: hysterectomy [facility] with BSO Family History Other Coronary heart disease Diabetes Leukemia No family history of adverse response to anesthesia Social History Smoking Status: Never smoker Second Hand Exposure: No; Do You Dip or Chew Tobacco: No; Hx Alcohol Use: Yes Alcohol type: wine Hx Substance Use: No Preferred Language: Malay Communication Ability: Effective Visual Impairment: No Limitations Rfp Writer Required: No Beliefs That Will Affect Care: None marital status: Current Living Situation: Family Feels Safe at Home: Yes Assistive Devices: None Review of Systems Neg except for what was mentioned in H&P. Physical Exam Couldn't be performed as the visit was conducted via telemed Results & Data Vital Signs (Past 12 Hours) Vital Signs Temp Pulse Resp BP Pulse Ox O2 Del Method O2 Flow Rate 01/10/24 14:56 37.5 C 73 16 144/65 H 94 Nasal Cannula 2 01/10/24 07:26 37.2 C 83 16 117/63 93 Nasal Cannula 2 01/10/24 05:50 39.3 C H Laboratory Results Microbiology: 01/08: 2 sets of blood culture negative to date
[2024-01-10] MEDS: ceFAZolin 2000MG 2,000 MG/15 ML SYR IV SCH (16:17)
[2024-01-11 05:59] LABS: Hematocrit (blood only) 25.6 % (37.0-47.0); Hemoglobin 8.6 g/dl (12.0-16.0); Mean Corpuscular Hemoglobin 34.5 pg (25.0-34.0); Mean Corpuscular Hgb Conc 33.6 g/dL (32.0-36.0); Mean Corpuscular Volume 102.8 fL (80.0-100.0); Mean Platelet Volume 12.3 fL (9.4-12.4); Platelet Count 77 K/uL (130-400); RDW Coefficient of Variation 17.6 % (11.5-14.5); RDW Standard Deviation 65.7 fL (36.4-46.3); Red Blood Count 2.49 M/uL (4.20-5.40); White Blood Count 5.32 K/ul (4.8-10.8)
[2024-01-11 06:17] LABS: BUN Creatinine Ratio 23.7 (10-20); Calcium 8.3 mg/dl (8.6-10.3); Creatinine Clr Calc Pharmacy 76.8 ml/min; Magnesium 2.1 mg/dl (1.7-2.4); Phosphorus 3.3 mg/dl (2.5-4.9); Potassium 3.7 mmol/L (3.5-5.1)
[2024-01-11 06:41] LABS: Basophils # (auto) 0.01 K/uL (0.00-0.20); Basophils % (auto) 0.2 %; Immature Granulocytes # (auto) 0.03 K/uL (0.01-0.20); Immature Granulocytes % (auto) 0.6 %; Lymphocytes # (auto) 1.67 K/uL (1.20-3.40); Lymphocytes % (auto) 31.4 %; Monocytes # (auto) 2.59 K/uL (0.11-0.59); Monocytes % (auto) 48.7 %; Neutrophils # (auto) 1.02 K/uL (1.40-6.50); Neutrophils % (auto) 19.1 %; Poikilocytosis Present; Polychromasia 1+
[2024-01-11 07:00] LABS: Bone Marrow Smear SLHOLD
--- NOTE | 2024-01-11 08:08 | Hospitalist Progress Note ---
Date of Service January 11, 2024 Assessment & Plan (1) Failure of outpatient treatment: (2) Cellulitis of right lower extremity: Gerson You is a 78y/o F with PMHx significant for diet-controlled DM type II, dyslipidemia, paroxysmal SVT, HTN, GERD with esophagitis, primary osteoarthritis of both knees, NEVA, persistent insomnia and sacroiliitis who presented to the ED via EMS for evaluation of right lower extremity pain and erythema. She was recently diagnosed with right lower extremity cellulitis by her PCP over the weekend and has failed an outpatient course of oral Keflex. Please refer to the HPI for further details. RLE Cellulitis, Failure of O/P Treatment: No evidence of sepsis on admission. CXR negative. Procalcitonin/lactate both negative. RLE venous doppler ultrasound negative for DVT. S/p 2g IV Rocephin in the ED. Started w/ IV Unasyn on admission , cont. Blood cultures pending. 01/09 She feels better today and says RLE tenderness is improved will further discuss w/ ID given her neutropenia Started on cefazolin per ID 01/10 R LE tenderness and erythema improving L Calf Pain: Patient with some L calf pain and TTP in this region on exam on admission. LLE venous doppler ultrasound obtained - no DVT. No previous history of DVT/PE per the patient. Tenderness seems to be resolved now. Pancytopenia: WBC 2.92k, RBC 2.84, hemoglobin 9.7 and platelet count 102 on admission. Per review of outpatient records on [facility], it appears patient has not been pancytopenic in the past. Patient also denies ever having this problem. However, notably her WBC was 3.73k back in March of this year. Routine anemia workup ordered on admission. B12 and folate levels normal, rest of the panel pending. TSH wnl. Peripheral smear ordered Heme/onc consulted - plan for bone marrow biopsy today (01/11/2024) Will ultimately need close outpatient follow up regarding this finding. Diet-Controlled DM Type II: No home diabetic agents, SSI while inpatient. Hgb A1c 6.5% ~9 months ago per chart review. Current A1c 7.5% BSG checks ACHS. Other Chronic Medical Conditions: HLD/NEVA --> Can continue home medications for these specific conditions. Can also continue home gabapentin for neuropathic pain. DVT Prophylaxis: SCDs/TEDs for now ISO pancytopenia. Code Status: FULL CODE PCP: Vidal Card MD Disposition: Admit to Med/Surg - Likely to be admitted for 1 to 2 days depending on her clinical course. Admission and Anticipated Discharge Date Admission Date: January 09, 2024 Subjective Pt seen in follow up of R LE cellulitis Pt w/ fever overnight after admission (was afebrile before) Pancytopenic, neutropenic She is laying in bed in NAD Reports feeling better, says tenderness of R LE is much improved/ resolved but she continues to feel very very tired No chest pain, shortness of breath, abd. pain, n/v Discussed w/ ID and heme/onc - plan for bone marrow biopsy today Review of Systems Review of Systems: All systems reviewed & are unremarkable except as noted in Subjective Physical Exam Physical Exam: General: WD/WN F in NAD HEENT: NC/AT. Conjunctivae normal, anicteric sclerae. External ear and nose normal Respiratory: Normal respiratory effort, lungs clear to auscultation. Cardiovascular: Regular rate, rhythm, no murmur, normal peripheral pulses, no BLE edema. Abdomen/GI: Normal bowel sounds, soft, nontender to palpation in all quadrants. Extremities/MSK: Erythema along R medial calf region, mild RLE swelling/warm to the touch - nontender to palp (tenderness resolved) Neurologic: awake, alert, oriented, answers appropriately, no facial asymmetry, moves extremities Results & Data Results & Data Vital Signs (Past 12 Hours) Vital Signs Temp Pulse Resp BP Pulse Ox O2 Del Method O2 Flow Rate 01/11/24 07:33 36.9 C 89 16 150/66 H 94 Nasal Cannula 2 01/11/24 00:21 37.5 C 01/10/24 22:35 96 Nasal Cannula 2 01/10/24 22:30 85 L Room Air 01/10/24 20:29 37.3 C 73 16 149/73 H 97 Nasal Cannula 2 Laboratory Results 01/11/24 01/11/24 01/10/24 Range/Units 06:07 05:37 20:32 WBC 5.32 (4.8-10.8) K/ul RBC 2.49 L (4.20-5.40) M/uL Hgb 8.6 L (12.0-16.0) g/dl Hct 25.6 L (37.0-47.0) % MCV 102.8 H (80.0-100.0) fL MCH 34.5 H (25.0-34.0) pg MCHC 33.6 (32.0-36.0) g/dL RDW Std Deviation 65.7 H (36.4-46.3) fL RDW Coeff of Patti 17.6 H (11.5-14.5) % Plt Count 77 L (130-400) K/uL MPV 12.3 (9.4-12.4) fL Immature Gran % (Auto) 0.6 % Neut % (Auto) 19.1 % Lymph % (Auto) 31.4 % [place] % (Auto) 48.7 % Eos % (Auto) 0.0 % Baso % (Auto) 0.2 % Reticulocyte % (Auto) (0.50-2.00) % Neut # (Auto) 1.02 L (1.40-6.50) K/uL Lymph # (Auto) 1.67 (1.20-3.40) K/uL [place] # (Auto) 2.59 H (0.11-0.59) K/uL Eos # (Auto) 0.00 (0.00-0.50) K/uL Baso # (Auto) 0.01 (0.00-0.20) K/uL Reticulocyte # (0.020-0.100) 10^6/uL Immature Gran # (Auto) 0.03 (0.01-0.20) K/uL Neutrophils % (Manual) % Lymphocytes % (Manual) % Reactive Lymphs % (Man) % Monocytes % (Manual) % Neutrophils # (Manual) (1.40-6.50) K/uL Total Absolute Neuts (1.4-6.5) K/uL Lymphocytes # (Manual) (1.2-3.4) K/uL Reactive Lymphs # K/uL Total Abs Lymphocytes (1.2-3.4) K/uL Monocytes # (Manual) (0.11-0.59) K/uL Polychromasia 1+ Poikilocytosis Present Tear Drop Cells Acanthocytes (Spur) Peripher Smr Path Cons Sodium 139 (136-145) mmol/L Potassium 3.7 (3.5-5.1) mmol/L Chloride 102 (98-107) mmol/L Carbon Dioxide 28 (21-32) mmol/L Anion Gap 9 (3-11) BUN 14 (6-23) mg/dl Creatinine 0.59 L (0.6-1.2) mg/dl Est Cr Clr Drug Dosing 76.8 ml/min eGFR 93.34 BUN/Creatinine Ratio 23.7 H (10-20) Glucose 165 H (70-99(Fasting)) mg/dl POC Glucose 177 H 158 H (70-99) mg/dl Calcium 8.3 L (8.6-10.3) mg/dl Phosphorus 3.3 D (2.5-4.9) mg/dl Magnesium 2.1 (1.7-2.4) mg/dl Anaplasma Smear A. phagocytophilum DNA Babesia Smear Babesia microti DNA PCR Lyme Disease Screen (Negative) 01/10/24 01/10/24 01/10/24 Range/Units 17:51 16:25 11:40 WBC (4.8-10.8) K/ul RBC (4.20-5.40) M/uL Hgb (12.0-16.0) g/dl Hct (37.0-47.0) % MCV (80.0-100.0) fL MCH (25.0-34.0) pg MCHC (32.0-36.0) g/dL RDW Std Deviation (36.4-46.3) fL RDW Coeff of Patti (11.5-14.5) % Plt Count (130-400) K/uL MPV (9.4-12.4) fL Immature Gran % (Auto) % Neut % (Auto) % Lymph % (Auto) % [place] % (Auto) % Eos % (Auto) % Baso % (Auto) % Reticulocyte % (Auto) (0.50-2.00) % Neut # (Auto) (1.40-6.50) K/uL Lymph # (Auto) (1.20-3.40) K/uL [place] # (Auto) (0.11-0.59) K/uL Eos # (Auto) (0.00-0.50) K/uL Baso # (Auto) (0.00-0.20) K/uL Reticulocyte # (0.020-0.100) 10^6/uL Immature Gran # (Auto) (0.01-0.20) K/uL Neutrophils % (Manual) % Lymphocytes % (Manual) % Reactive Lymphs % (Man) % Monocytes % (Manual) % Neutrophils # (Manual) (1.40-6.50) K/uL Total Absolute Neuts (1.4-6.5) K/uL Lymphocytes # (Manual) (1.2-3.4) K/uL Reactive Lymphs # K/uL Total Abs Lymphocytes (1.2-3.4) K/uL Monocytes # (Manual) (0.11-0.59) K/uL Polychromasia Poikilocytosis Tear Drop Cells Acanthocytes (Spur) Peripher Smr Path Cons Sodium (136-145) mmol/L Potassium (3.5-5.1) mmol/L Chloride (98-107) mmol/L Carbon Dioxide (21-32) mmol/L Anion Gap (3-11) BUN (6-23) mg/dl Creatinine (0.6-1.2) mg/dl Est Cr Clr Drug Dosing ml/min eGFR BUN/Creatinine Ratio (10-20) Glucose (70-99(Fasting)) mg/dl POC Glucose 108 H 215 H (70-99) mg/dl Calcium (8.6-10.3) mg/dl Phosphorus (2.5-4.9) mg/dl Magnesium (1.7-2.4) mg/dl Anaplasma Smear See Comment A. phagocytophilum DNA Pending Babesia Smear See Comment Babesia microti DNA PCR Pending Lyme Disease Screen Negative (Negative) 01/10/24 01/10/24 Range/Units 05:37 05:37 WBC (4.8-10.8) K/ul RBC (4.20-5.40) M/uL Hgb (12.0-16.0) g/dl Hct (37.0-47.0) % MCV (80.0-100.0) fL MCH (25.0-34.0) pg MCHC (32.0-36.0) g/dL RDW Std Deviation (36.4-46.3) fL RDW Coeff of Patti (11.5-14.5) % Plt Count (130-400) K/uL MPV (9.4-12.4) fL Immature Gran % (Auto) % Neut % (Auto) % Lymph % (Auto) % [place] % (Auto) % Eos % (Auto) % Baso % (Auto) % Reticulocyte % (Auto) 1.28 (0.50-2.00) % Neut # (Auto) (1.40-6.50) K/uL Lymph # (Auto) (1.20-3.40) K/uL [place] # (Auto) (0.11-0.59) K/uL Eos # (Auto) (0.00-0.50) K/uL Baso # (Auto) (0.00-0.20) K/uL Reticulocyte # 0.030 (0.020-0.100) 10^6/uL Immature Gran # (Auto) (0.01-0.20) K/uL Neutrophils % (Manual) 23 % Lymphocytes % (Manual) 43 % Reactive Lymphs % (Man) 19 % Monocytes % (Manual) 15 % Neutrophils # (Manual) 0.66 L (1.40-6.50) K/uL Total Absolute Neuts 0.66 L* (1.4-6.5) K/uL Lymphocytes # (Manual) 1.24 (1.2-3.4) K/uL Reactive Lymphs # 0.55 K/uL Total Abs Lymphocytes 1.79 (1.2-3.4) K/uL Monocytes # (Manual) 0.43 (0.11-0.59) K/uL Polychromasia Poikilocytosis Tear Drop Cells 1+ Acanthocytes (Spur) 1+ Peripher Smr Path Cons Cancelled Sodium (136-145) mmol/L Potassium (3.5-5.1) mmol/L Chloride (98-107) mmol/L Carbon Dioxide (21-32) mmol/L Anion Gap (3-11) BUN (6-23) mg/dl Creatinine (0.6-1.2) mg/dl Est Cr Clr Drug Dosing ml/min eGFR BUN/Creatinine Ratio (10-20) Glucose (70-99(Fasting)) mg/dl POC Glucose (70-99) mg/dl Calcium (8.6-10.3) mg/dl Phosphorus (2.5-4.9) mg/dl Magnesium (1.7-2.4) mg/dl Anaplasma Smear A. phagocytophilum DNA Babesia Smear Babesia microti DNA PCR Lyme Disease Screen (Negative) Medications Administered Current Inpatient Medications Acetaminophen (Acetaminophen 500 Mg Tab) 1,000 mg PO Q8H PRN PRN Reason: Pain Stop: 02/08/24 16:59 Last Admin: 01/11/24 00:15 Dose: 1,000 mg Acetaminophen (Acetaminophen 325 Mg Tab) 650 mg PO Q4H PRN PRN Reason: pain/fever Stop: 02/08/24 17:48 Ascorbic Acid (Ascorbic Acid 500 Mg Tab) 500 mg PO QAM [facility] Stop: 02/09/24 08:59 Last Admin: 01/10/24 08:16 Dose: 500 mg Atorvastatin Calcium (Atorvastatin 20 Mg Tab) 20 mg PO QAM [place] Stop: 02/09/24 08:59 Last Admin: 01/10/24 08:16 Dose: 20 mg Calcium/Vitamin D (Calcium 600mg + Vit D 400 Iu Tab) 2 tab PO QAM [place] Stop: 02/09/24 08:59 Last Admin: 01/10/24 08:15 Dose: 2 tab Citalopram Hydrobromide (Citalopram 20 Mg Tab) 10 mg PO DAILY [place] Stop: 02/09/24 08:59 Last Admin: 01/10/24 08:14 Dose: 10 mg Dextrose (Dextrose 50% 50 Ml Syringe) 25 - 50 ml IV UD PRN; Protocol PRN Reason: Hypoglycemia Protocol Stop: 02/08/24 17:48 Gabapentin (Gabapentin 100 Mg Cap) 100 mg PO BID [place] Stop: 02/08/24 20:59 Last Admin: 01/10/24 22:19 Dose: 100 mg Glucagon (Glucagon For Inj 1 Mg Vial) 1 mg SQ UD PRN; Protocol PRN Reason: Hypoglycemia Protocol Stop: 02/08/24 17:48 Glucose (Glucose 40% Gel 15 Gm Tube) 15 - 30 gm PO UD PRN; Protocol PRN Reason: Hypoglycemia Protocol Stop: 02/08/24 17:48 Glucose (Glucose 10 Tab/Tube) 4 - 8 tab PO UD PRN; Protocol PRN Reason: Hypoglycemia Protocol Stop: 02/08/24 17:48 Cefazolin Sodium (Ancef 2000mg) 2,000 mg in 15 mls @ 3.75 mls/min IV Q8H [place] Stop: 01/17/24 15:59 Last Admin: 01/11/24 00:15 Dose: 3.75 mls/min Acetaminophen (Ofirmev) 1,000 mg in 100 mls @ 200 mls/hr IV NOW ONE Stop: 01/11/24 09:44 Insulin Aspart (Insulin Aspart Per Unit Charge) 0 units SC ACHS [facility] Stop: 02/08/24 17:59 Last Admin: 01/11/24 06:24 Dose: 1 units Lactobacillus Acidophilus (Advanced Probiotic 625 Mg Capsule) 1,250 mg PO DAILY [place] Stop: 02/08/24 17:48 Last Admin: 01/10/24 08:13 Dose: 1,250 mg Magnesium Hydroxide (Magnesium Hydroxide Susp 30 Ml Udc) 30 ml PO Q6H PRN PRN Reason: Constipation Stop: 02/08/24 17:48 Miscellaneous (Carbohydrates For Hypoglycemia ) 15 - 30 gm PO UD PRN PRN Reason: Hypoglycemia Protocol Stop: 02/08/24 17:48 Multivitamins (Multivitamin Tab) 1 tab PO QAM [facility] Stop: 02/09/24 08:59 Last Admin: 01/10/24 08:14 Dose: 1 tab Ondansetron HCl (Ondansetron Inj 2 Mg/Ml 2 Ml Vial) 4 mg IV Q6H PRN PRN Reason: Nausea Stop: 02/08/24 17:48 Polyethylene Glycol (Polyethylene (Miralax) 17 Gm Pack) 17 gm PO DAILY PRN PRN Reason: Constipation Stop: 02/08/24 17:48 Vitamin D (Cholecalciferol 125 Mcg (5,000 Units) Tab) 250 mcg PO QAM [facility] Stop: 02/09/24 08:59 Last Admin: 01/10/24 08:15 Dose: 250 mcg
[2024-01-11] MEDS: ACETAMINOPHEN 1,000 MG/100 ML VIAL IV ONE (08:53)
[2024-01-11] MEDS: fentaNYL citrate PF 100 MCG/2 ML VIAL ONE (10:22)
--- NOTE | 2024-01-11 11:27 | CT Scan Report ---
CT-guided bone marrow biopsy INDICATION: Pancytopenia PROCEDURE: Procedure and risks were explained. Informed consent was obtained. A final timeout was com pleted. The patient was placed prone on the CT exam table. The left gluteal region was prepped and dr aped in sterile fashion. 1% lidocaine was utilized for skin anesthesia. The patient received 1 g Tyle nol IV. Utilizing CT guidance, an 11-gauge bone biopsy needle was advanced into the left iliac bone. Multiple aspirates and one bone core was obtained and given to the lab. The needle was removed and Band-Aid a pplied. The patient tolerated the procedure well. Vital signs will be monitored on the floor. IMPRESSION: Bone marrow biopsy as above. Performed, dictated, and signed by Abhi Rodriguez PA-C; to be co-signed by Dr. Caden Connolly. Electronically signed by: Caden Connolly M.D. 01/11/2024 12:01 PM
[2024-01-11] MEDS: traMADol HCL 50 MG TABLET PO STA (23:03)
[2024-01-12 06:43] LABS: Hematocrit (blood only) 24.4 % (37.0-47.0); Hemoglobin 8.2 g/dl (12.0-16.0); Mean Corpuscular Hemoglobin 34.3 pg (25.0-34.0); Mean Corpuscular Hgb Conc 33.6 g/dL (32.0-36.0); Mean Corpuscular Volume 102.1 fL (80.0-100.0); Mean Platelet Volume 12.4 fL (9.4-12.4); Nucleated RBC # (auto) 0.02 K/uL (0.00-0.12); Nucleated RBC % (auto) 0.5 %; Platelet Count 80 K/uL (130-400); RDW Coefficient of Variation 17.5 % (11.5-14.5); RDW Standard Deviation 67.3 fL (36.4-46.3); Red Blood Count 2.39 M/uL (4.20-5.40); White Blood Count 4.42 K/ul (4.8-10.8)
[2024-01-12 07:17] LABS: BUN Creatinine Ratio 27.3 (10-20); Calcium 7.9 mg/dl (8.6-10.3); Creatinine Clr Calc Pharmacy 82.4 ml/min; Phosphorus 2.2 mg/dl (2.5-4.9); Potassium 3.3 mmol/L (3.5-5.1)
[2024-01-12 08:03] LABS: Basophils # (auto) 0.01 K/uL (0.00-0.20); Basophils % (auto) 0.2 %; Immature Granulocytes # (auto) 0.08 K/uL (0.01-0.20); Immature Granulocytes % (auto) 1.8 %; Lymphocytes # (auto) 1.01 K/uL (1.20-3.40); Lymphocytes % (auto) 22.9 %; Monocytes # (auto) 2.36 K/uL (0.11-0.59); Monocytes % (auto) 53.4 %; Neutrophils # (auto) 0.96 K/uL (1.40-6.50); Neutrophils % (auto) 21.7 %; Ovalocytes 1+
--- NOTE | 2024-01-12 08:57 | XRay Report ---
XR chest 1V portable CLINICAL HISTORY: hypoxia, cxr follow up COMPARISON STUDY: Chest radiograph January 09, 2024. FINDINGS: There is no pneumothorax or pleural effusion. Linear left basilar densities represent atele ctasis. There is no consolidation to suggest pneumonia. There is moderate cardiomegaly. There is pulm onary vascular congestion without overt pulmonary edema. IMPRESSION: 1. Cardiomegaly with pulmonary vascular congestion. 2. No consolidation to suggest pneumonia. ACT 112: Negative or not required by law. Electronically signed by: Caden Connolly M.D. 01/12/2024 8:56 AM
--- NOTE | 2024-01-12 11:27 | Hospitalist Progress Note ---
Date of Service January 12, 2024 Assessment & Plan (1) Failure of outpatient treatment: (2) Cellulitis of right lower extremity: Plan Rina You is a 78y/o F with PMHx significant for diet-controlled DM type II, dyslipidemia, paroxysmal SVT, HTN, GERD with esophagitis, primary osteoarthritis of both knees, NEVA, persistent insomnia and sacroiliitis who presented to the ED via EMS for evaluation of right lower extremity pain and erythema. She was recently diagnosed with right lower extremity cellulitis by her PCP over the weekend and has failed an outpatient course of oral Keflex. Please refer to the HPI for further details. RLE Cellulitis, Failure of O/P Treatment: No evidence of sepsis on admission. CXR negative. Procalcitonin/lactate both negative. RLE venous doppler ultrasound negative for DVT. S/p 2g IV Rocephin in the ED. Started w/ IV Unasyn on admission Blood cultures NG in 48 hrs Changed cefazolin per discussion ID [id number] R LE tenderness and erythema significantly improved L Calf Pain: Patient with some L calf pain and TTP in this region on exam on admission. LLE venous doppler ultrasound obtained - no DVT. No previous history of DVT/PE per the patient. Tenderness resolved now. Pancytopenia: WBC 2.92k, RBC 2.84, hemoglobin 9.7 and platelet count 102 on admission. Per review of outpatient records on [facility], it appears patient has not been pancytopenic in the past. Patient also denies ever having this problem. However, notably her WBC was 3.73k back in March of this year. Routine anemia workup ordered on admission. B12 and folate levels normal, rest of the panel pending. TSH wnl. Peripheral smear ordered Heme/onc consulted - pt is s/p bone marrow biopsy on (01/11/2024) Will need close outpatient follow up Hypoxia - pt denies any oxygen needs at home - currently on 2l, IS ordered, CXR w/ mild pulm. congestion, + crackles on exam - will give small dose lasix. will try to switch to po pills - cont. to monitor Diet-Controlled DM Type II: No home diabetic agents, SSI while inpatient. Hgb A1c 6.5% ~9 months ago per chart review. Current A1c 7.5% BSG checks ACHS. Other Chronic Medical Conditions: HLD/NEVA --> Can continue home medications for these specific conditions. Can also continue home gabapentin for neuropathic pain. DVT Prophylaxis: SCDs/TEDs for now ISO pancytopenia. Code Status: FULL CODE PCP: Vidal Card MD Disposition: Med/Surg - Likely DC tmrw if hypoxia resolved Admission and Anticipated Discharge Date Admission Date: January 09, 2024 Subjective Pt seen in follow up of R LE cellulitis - much improved now Pt w/ fever overnight after admission (was afebrile before) Pancytopenic, neutropenic She is laying in bed in NAD Reports feeling better, says tenderness of R LE is much improved/ resolved but she continues to feel very very tired No chest pain, shortness of breath, abd. pain, n/v Discussed w/ ID and heme/onc - s/p bone marrow biopsy yesterday Continues to need suppl. o2, crackles on exam, will get CXR Review of Systems Review of Systems: All systems reviewed & are unremarkable except as noted in Subjective Physical Exam Physical Exam: General: WD/WN F in NAD, on suppl. O2 HEENT: NC/AT. Conjunctivae normal, anicteric sclerae. External ear and nose normal Respiratory: Normal respiratory effort, + mild diffuse crackles Cardiovascular: Regular rate, rhythm, no murmur, normal peripheral pulses, no BLE edema. Abdomen/GI: Normal bowel sounds, soft, nontender to palpation in all quadrants. Extremities/MSK: Erythema along R medial calf region, mild RLE swelling/warm to the touch - nontender to palp (tenderness resolved, erythema much improved) Neurologic: awake, alert, oriented, answers appropriately, no facial asymmetry, moves extremities Results & Data Results & Data Vital Signs (Past 12 Hours) Vital Signs Temp Pulse Resp BP Pulse Ox O2 Del Method O2 Flow Rate 01/12/24 07:00 36.6 C 99 H 16 129/67 90 Nasal Cannula 3 Laboratory Results 01/12/24 01/12/24 01/12/24 Range/Units 11:26 07:30 05:42 WBC 4.42 L (4.8-10.8) K/ul RBC 2.39 L (4.20-5.40) M/uL Hgb 8.2 L (12.0-16.0) g/dl Hct 24.4 L (37.0-47.0) % MCV 102.1 H (80.0-100.0) fL MCH 34.3 H (25.0-34.0) pg MCHC 33.6 (32.0-36.0) g/dL RDW Std Deviation 67.3 H (36.4-46.3) fL RDW Coeff of Patti 17.5 H (11.5-14.5) % Plt Count 80 L (130-400) K/uL MPV 12.4 (9.4-12.4) fL Immature Gran % (Auto) 1.8 % Neut % (Auto) 21.7 % Lymph % (Auto) 22.9 % [place] % (Auto) 53.4 % Eos % (Auto) 0.0 % Baso % (Auto) 0.2 % Neut # (Auto) 0.96 L* (1.40-6.50) K/uL Lymph # (Auto) 1.01 L (1.20-3.40) K/uL [place] # (Auto) 2.36 H (0.11-0.59) K/uL Eos # (Auto) 0.00 (0.00-0.50) K/uL Baso # (Auto) 0.01 (0.00-0.20) K/uL Immature Gran # (Auto) 0.08 (0.01-0.20) K/uL Absolute Nucleated RBC 0.02 (0.00-0.12) K/uL Nucleated RBC % (auto) 0.5 % Ovalocytes 1+ Sodium 135 L (136-145) mmol/L Potassium 3.3 L (3.5-5.1) mmol/L Chloride 100 (98-107) mmol/L Carbon Dioxide 24 (21-32) mmol/L Anion Gap 11 (3-11) BUN 15 (6-23) mg/dl Creatinine 0.55 L (0.6-1.2) mg/dl Est Cr Clr Drug Dosing 82.4 ml/min eGFR 94.94 BUN/Creatinine Ratio 27.3 H (10-20) Glucose 168 H (70-99(Fasting)) mg/dl POC Glucose 168 H 200 H (70-99) mg/dl Calcium 7.9 L (8.6-10.3) mg/dl Phosphorus 2.2 L D (2.5-4.9) mg/dl Magnesium 2.0 (1.7-2.4) mg/dl 01/11/24 01/11/24 Range/Units 20:39 16:54 WBC (4.8-10.8) K/ul RBC (4.20-5.40) M/uL Hgb (12.0-16.0) g/dl Hct (37.0-47.0) % MCV (80.0-100.0) fL MCH (25.0-34.0) pg MCHC (32.0-36.0) g/dL RDW Std Deviation (36.4-46.3) fL RDW Coeff of Patti (11.5-14.5) % Plt Count (130-400) K/uL MPV (9.4-12.4) fL Immature Gran % (Auto) % Neut % (Auto) % Lymph % (Auto) % [place] % (Auto) % Eos % (Auto) % Baso % (Auto) % Neut # (Auto) (1.40-6.50) K/uL Lymph # (Auto) (1.20-3.40) K/uL [place] # (Auto) (0.11-0.59) K/uL Eos # (Auto) (0.00-0.50) K/uL Baso # (Auto) (0.00-0.20) K/uL Immature Gran # (Auto) (0.01-0.20) K/uL Absolute Nucleated RBC (0.00-0.12) K/uL Nucleated RBC % (auto) % Ovalocytes Sodium (136-145) mmol/L Potassium (3.5-5.1) mmol/L Chloride (98-107) mmol/L Carbon Dioxide (21-32) mmol/L Anion Gap (3-11) BUN (6-23) mg/dl Creatinine (0.6-1.2) mg/dl Est Cr Clr Drug Dosing ml/min eGFR BUN/Creatinine Ratio (10-20) Glucose (70-99(Fasting)) mg/dl POC Glucose 192 H 132 H (70-99) mg/dl Calcium (8.6-10.3) mg/dl Phosphorus (2.5-4.9) mg/dl Magnesium (1.7-2.4) mg/dl Medications Administered Current Inpatient Medications Acetaminophen (Acetaminophen 500 Mg Tab) 1,000 mg PO Q8H PRN PRN Reason: Pain Stop: 02/08/24 16:59 Last Admin: 01/11/24 17:00 Dose: 1,000 mg Acetaminophen (Acetaminophen 325 Mg Tab) 650 mg PO Q4H PRN PRN Reason: pain/fever Stop: 02/08/24 17:48 Ascorbic Acid (Ascorbic Acid 500 Mg Tab) 500 mg PO QAM [facility] Stop: 02/09/24 08:59 Last Admin: 01/12/24 08:56 Dose: 500 mg Atorvastatin Calcium (Atorvastatin 20 Mg Tab) 20 mg PO QAM [facility] Stop: 02/09/24 08:59 Last Admin: 01/12/24 08:56 Dose: 20 mg Calcium/Vitamin D (Calcium 600mg + Vit D 400 Iu Tab) 2 tab PO QAM [facility] Stop: 02/09/24 08:59 Last Admin: 01/12/24 08:56 Dose: 2 tab Citalopram Hydrobromide (Citalopram 20 Mg Tab) 10 mg PO DAILY [facility] Stop: 02/09/24 08:59 Last Admin: 01/12/24 08:57 Dose: 10 mg Dextrose (Dextrose 50% 50 Ml Syringe) 25 - 50 ml IV UD PRN; Protocol PRN Reason: Hypoglycemia Protocol Stop: 02/08/24 17:48 Gabapentin (Gabapentin 100 Mg Cap) 100 mg PO BID [facility] Stop: 02/08/24 20:59 Last Admin: 01/12/24 08:58 Dose: 100 mg Glucagon (Glucagon For Inj 1 Mg Vial) 1 mg SQ UD PRN; Protocol PRN Reason: Hypoglycemia Protocol Stop: 02/08/24 17:48 Glucose (Glucose 40% Gel 15 Gm Tube) 15 - 30 gm PO UD PRN; Protocol PRN Reason: Hypoglycemia Protocol Stop: 02/08/24 17:48 Glucose (Glucose 10 Tab/Tube) 4 - 8 tab PO UD PRN; Protocol PRN Reason: Hypoglycemia Protocol Stop: 02/08/24 17:48 Cefazolin Sodium (Ancef 2000mg) 2,000 mg in 15 mls @ 3.75 mls/min IV Q8H [facility] Stop: 01/17/24 15:59 Last Admin: 01/12/24 08:55 Dose: 3.75 mls/min Insulin Aspart (Insulin Aspart Per Unit Charge) 0 units SC ACHS [facility] Stop: 02/08/24 17:59 Last Admin: 01/12/24 08:31 Dose: 2 units Lactobacillus Acidophilus (Advanced Probiotic 625 Mg Capsule) 1,250 mg PO DAILY [place] Stop: 02/08/24 17:48 Last Admin: 01/12/24 08:56 Dose: 1,250 mg Magnesium Hydroxide (Magnesium Hydroxide Susp 30 Ml Udc) 30 ml PO Q6H PRN PRN Reason: Constipation Stop: 02/08/24 17:48 Miscellaneous (Carbohydrates For Hypoglycemia ) 15 - 30 gm PO UD PRN PRN Reason: Hypoglycemia Protocol Stop: 02/08/24 17:48 Multivitamins (Multivitamin Tab) 1 tab PO QAM [facility] Stop: 02/09/24 08:59 Last Admin: 01/12/24 08:57 Dose: 1 tab Ondansetron HCl (Ondansetron Inj 2 Mg/Ml 2 Ml Vial) 4 mg IV Q6H PRN PRN Reason: Nausea Stop: 02/08/24 17:48 Polyethylene Glycol (Polyethylene (Miralax) 17 Gm Pack) 17 gm PO DAILY PRN PRN Reason: Constipation Stop: 02/08/24 17:48 Vitamin D (Cholecalciferol 125 Mcg (5,000 Units) Tab) 250 mcg PO QAM [facility] Stop: 02/09/24 08:59 Last Admin: 01/12/24 08:57 Dose: 250 mcg
[2024-01-12] MEDS: FUROSEMIDE INJ 20 MG/2 ML VIAL IV ONE (11:55)
[2024-01-12] MEDS: POTASSIUM CHLORIDE CRTAB 20 MEQ TABCR PO STA (11:55)
[2024-01-12] MEDS: cephALEXin 500 MG CAP PO SCH (17:44)
[2024-01-13 06:43] LABS: Hematocrit (blood only) 24.4 % (37.0-47.0); Hemoglobin 8.2 g/dl (12.0-16.0); Mean Corpuscular Hemoglobin 34.5 pg (25.0-34.0); Mean Corpuscular Hgb Conc 33.6 g/dL (32.0-36.0); Mean Corpuscular Volume 102.5 fL (80.0-100.0); Mean Platelet Volume 12.2 fL (9.4-12.4); Platelet Count 82 K/uL (130-400); RDW Coefficient of Variation 18.1 % (11.5-14.5); RDW Standard Deviation 67.9 fL (36.4-46.3); Red Blood Count 2.38 M/uL (4.20-5.40); White Blood Count 4.45 K/ul (4.8-10.8)
[2024-01-13 06:49] LABS: BUN Creatinine Ratio 52.5 (10-20); Creatinine Clr Calc Pharmacy 113.3 ml/min; Magnesium 2.2 mg/dl (1.7-2.4); Phosphorus 2.4 mg/dl (2.5-4.9); Potassium 3.9 mmol/L (3.5-5.1)
[2024-01-13 07:19] LABS: Basophils # (auto) 0.02 K/uL (0.00-0.20); Basophils % (auto) 0.4 %; Eosinophils # (auto) 0.01 K/uL (0.00-0.50); Eosinophils % (auto) 0.2 %; Immature Granulocytes # (auto) 0.06 K/uL (0.01-0.20); Immature Granulocytes % (auto) 1.3 %; Lymphocytes # (auto) 1.15 K/uL (1.20-3.40); Lymphocytes % (auto) 25.8 %; Monocytes # (auto) 2.25 K/uL (0.11-0.59); Monocytes % (auto) 50.6 %; Neutrophils # (auto) 0.96 K/uL (1.40-6.50); Neutrophils % (auto) 21.7 %
--- NOTE | 2024-01-13 08:00 | Hospitalist Progress Note ---
Date of Service January 13, 2024 Assessment & Plan (1) Failure of outpatient treatment: (2) Cellulitis of right lower extremity: Plan Rina You is a 78y/o F with PMHx significant for diet-controlled DM type II, dyslipidemia, paroxysmal SVT, HTN, GERD with esophagitis, primary osteoarthritis of both knees, NEVA, persistent insomnia and sacroiliitis who presented to the ED via EMS for evaluation of right lower extremity pain and erythema. She was recently diagnosed with right lower extremity cellulitis by her PCP over the weekend and has failed an outpatient course of oral Keflex. Please refer to the HPI for further details. RLE Cellulitis, Failure of O/P Treatment: No evidence of sepsis on admission. CXR negative. Procalcitonin/lactate both negative. RLE venous doppler ultrasound negative for DVT. S/p 2g IV Rocephin in the ED. Started w/ IV Unasyn on admission Blood cultures NG in 48 hrs Changed cefazolin per discussion ID 01/12 R LE tenderness and erythema resolved L Calf Pain: Patient with some L calf pain and TTP in this region on exam on admission. LLE venous doppler ultrasound obtained - no DVT. No previous history of DVT/PE per the patient. Tenderness resolved now. Pancytopenia: WBC 2.92k, RBC 2.84, hemoglobin 9.7 and platelet count 102 on admission. Per review of outpatient records on [facility], it appears patient has not been pancytop enic in the past. Patient also denies ever having this problem. However, notably her WBC was 3.73k back in March of this year. Routine anemia workup ordered on admission. B12 and folate levels normal, rest of the panel pending. TSH wnl. Peripheral smear obtained Heme/onc consulted - pt is s/p bone marrow biopsy on (01/11/2024) Will need close outpatient follow up Hypoxia - pt denies any oxygen needs at home - was on 2L, IS ordered, CXR w/ mild pulm. congestion, + crackles on exam - received small dose lasix -> now CTAB and on 0-1L of suppl. O2 - cont. to monitor Diet-Controlled DM Type II: No home diabetic agents, SSI while inpatient. Hgb A1c 6.5% ~9 months ago per chart review. Current A1c 7.5% BSG checks ACHS. Other Chronic Medical Conditions: HLD/NEVA --> Can continue home medications for these specific conditions. Can also continue home gabapentin for neuropathic pain. DVT Prophylaxis: SCDs/TEDs for now ISO pancytopenia. Code Status: FULL CODE PCP: Vidal Card MD Disposition: Med/Surg - PT eval pending, Likely DC tmrw if hypoxia resolved Admission and Anticipated Discharge Date Admission Date: January 09, 2024 Subjective Pt seen in follow up of R LE cellulitis - much improved now Pt w/ fever overnight after admission (was afebrile before) Pancytopenic, neutropenic She is laying in bed in NAD, daughters present at the bedside and updated Reports feeling better, says tenderness of R LE is resolved No chest pain, shortness of breath, abd. pain, n/v Discussed w/ ID and heme/onc - s/p bone marrow biopsy Weaning off suppl. O2 - on 0-1 L now, crackles resolved on exam PT eval pending Review of Systems Review of Systems: All systems reviewed & are unremarkable except as noted in Subjective Physical Exam Physical Exam: General: WD/WN F in NAD, on suppl. O2 HEENT: NC/AT. Conjunctivae normal, anicteric sclerae. External ear and nose normal Respiratory: Normal respiratory effort, CTAB Cardiovascular: Regular rate, rhythm, no murmur, normal peripheral pulses, no BLE edema. Abdomen/GI: Normal bowel sounds, soft, nontender to palpation in all quadrants. Extremities/MSK: Erythema along R medial calf region, mild RLE swelling/warm to the touch - nontender to palp (tenderness resolved, erythema much improved) Neurologic: awake, alert, oriented, answers appropriately, no facial asymmetry, moves extremities Results & Data Results & Data Vital Signs (Past 12 Hours) Vital Signs Temp Pulse Resp BP Pulse Ox O2 Del Method O2 Flow Rate 01/13/24 07:31 36.7 C 82 18 134/75 96 Nasal Cannula 3 Laboratory Results 01/13/24 01/13/24 01/12/24 Range/Units 07:34 05:34 20:54 WBC 4.45 L (4.8-10.8) K/ul RBC 2.38 L (4.20-5.40) M/uL Hgb 8.2 L (12.0-16.0) g/dl Hct 24.4 L (37.0-47.0) % MCV 102.5 H (80.0-100.0) fL MCH 34.5 H (25.0-34.0) pg MCHC 33.6 (32.0-36.0) g/dL RDW Std Deviation 67.9 H (36.4-46.3) fL RDW Coeff of Patti 18.1 H (11.5-14.5) % Plt Count 82 L (130-400) K/uL MPV 12.2 (9.4-12.4) fL Immature Gran % (Auto) 1.3 % Neut % (Auto) 21.7 % Lymph % (Auto) 25.8 % Hill % (Auto) 50.6 % Eos % (Auto) 0.2 % Baso % (Auto) 0.4 % Neut # (Auto) 0.96 L* (1.40-6.50) K/uL Lymph # (Auto) 1.15 L (1.20-3.40) K/uL Hill # (Auto) 2.25 H (0.11-0.59) K/uL Eos # (Auto) 0.01 (0.00-0.50) K/uL Baso # (Auto) 0.02 (0.00-0.20) K/uL Immature Gran # (Auto) 0.06 (0.01-0.20) K/uL Ovalocytes Sodium 135 L (136-145) mmol/L Potassium 3.9 (3.5-5.1) mmol/L Chloride 100 (98-107) mmol/L Carbon Dioxide 27 (21-32) mmol/L Anion Gap 8 (3-11) BUN 21 (6-23) mg/dl Creatinine 0.40 L (0.6-1.2) mg/dl Est Cr Clr Drug Dosing 113.3 ml/min eGFR 102.51 BUN/Creatinine Ratio 52.5 H (10-20) Glucose 161 H (70-99(Fasting)) mg/dl POC Glucose 173 H 146 H (70-99) mg/dl Calcium 8.0 L (8.6-10.3) mg/dl Phosphorus 2.4 L (2.5-4.9) mg/dl Magnesium 2.2 (1.7-2.4) mg/dl 11/23/24 11/23/24 Range/Units 11:26 05:42 WBC (4.8-10.8) K/ul RBC (4.20-5.40) M/uL Hgb (12.0-16.0) g/dl Hct (37.0-47.0) % MCV (80.0-100.0) fL MCH (25.0-34.0) pg MCHC (32.0-36.0) g/dL RDW Std Deviation (36.4-46.3) fL RDW Coeff of Patti (11.5-14.5) % Plt Count (130-400) K/uL MPV (9.4-12.4) fL Immature Gran % (Auto) 1.8 % Neut % (Auto) 21.7 % Lymph % (Auto) 22.9 % Hill % (Auto) 53.4 % Eos % (Auto) 0.0 % Baso % (Auto) 0.2 % Neut # (Auto) 0.96 L* (1.40-6.50) K/uL Lymph # (Auto) 1.01 L (1.20-3.40) K/uL Hill # (Auto) 2.36 H (0.11-0.59) K/uL Eos # (Auto) 0.00 (0.00-0.50) K/uL Baso # (Auto) 0.01 (0.00-0.20) K/uL Immature Gran # (Auto) 0.08 (0.01-0.20) K/uL Ovalocytes 1+ Sodium (136-145) mmol/L Potassium (3.5-5.1) mmol/L Chloride (98-107) mmol/L Carbon Dioxide (21-32) mmol/L Anion Gap (3-11) BUN (6-23) mg/dl Creatinine (0.6-1.2) mg/dl Est Cr Clr Drug Dosing ml/min eGFR BUN/Creatinine Ratio (10-20) Glucose (70-99(Fasting)) mg/dl POC Glucose 168 H (70-99) mg/dl Calcium (8.6-10.3) mg/dl Phosphorus (2.5-4.9) mg/dl Magnesium (1.7-2.4) mg/dl Medications Administered Current Inpatient Medications Acetaminophen (Acetaminophen 500 Mg Tab) 1,000 mg PO Q8H PRN PRN Reason: Pain Stop: 02/08/24 16:59 Last Admin: 01/11/24 17:00 Dose: 1,000 mg Acetaminophen (Acetaminophen 325 Mg Tab) 650 mg PO Q4H PRN PRN Reason: pain/fever Stop: 02/08/24 17:48 Ascorbic Acid (Ascorbic Acid 500 Mg Tab) 500 mg PO QAM [facility] Stop: 02/09/24 08:59 Last Admin: 01/12/24 08:56 Dose: 500 mg Atorvastatin Calcium (Atorvastatin 20 Mg Tab) 20 mg PO QAM [facility] Stop: 02/09/24 08:59 Last Admin: 01/12/24 08:56 Dose: 20 mg Calcium/Vitamin D (Calcium 600mg + Vit D 400 Iu Tab) 2 tab PO QAM [facility] Stop: 02/09/24 08:59 Last Admin: 01/12/24 08:56 Dose: 2 tab Cephalexin HCl (Cephalexin 500 Mg Cap) 500 mg PO QID [facility]; Protocol Stop: 01/19/24 16:59 Last Admin: 01/12/24 21:14 Dose: 500 mg Citalopram Hydrobromide (Citalopram 20 Mg Tab) 10 mg PO DAILY [facility] Stop: 02/09/24 08:59 Last Admin: 01/12/24 08:57 Dose: 10 mg Dextrose (Dextrose 50% 50 Ml Syringe) 25 - 50 ml IV UD PRN; Protocol PRN Reason: Hypoglycemia Protocol Stop: 02/08/24 17:48 Gabapentin (Gabapentin 100 Mg Cap) 100 mg PO BID [facility] Stop: 02/08/24 20:59 Last Admin: 01/12/24 21:14 Dose: 100 mg Glucagon (Glucagon For Inj 1 Mg Vial) 1 mg SQ UD PRN; Protocol PRN Reason: Hypoglycemia Protocol Stop: 02/08/24 17:48 Glucose (Glucose 40% Gel 15 Gm Tube) 15 - 30 gm PO UD PRN; Protocol PRN Reason: Hypoglycemia Protocol Stop: 02/08/24 17:48 Glucose (Glucose 10 Tab/Tube) 4 - 8 tab PO UD PRN; Protocol PRN Reason: Hypoglycemia Protocol Stop: 02/08/24 17:48 Insulin Aspart (Insulin Aspart Per Unit Charge) 0 units SC ACHS [facility] Stop: 02/08/24 17:59 Last Admin: 01/12/24 21:03 Dose: Not Given Lactobacillus Acidophilus (Advanced Probiotic 625 Mg Capsule) 1,250 mg PO DAILY [place] Stop: 02/08/24 17:48 Last Admin: 01/12/24 08:56 Dose: 1,250 mg Magnesium Hydroxide (Magnesium Hydroxide Susp 30 Ml Udc) 30 ml PO Q6H PRN PRN Reason: Constipation Stop: 02/08/24 17:48 Miscellaneous (Carbohydrates For Hypoglycemia ) 15 - 30 gm PO UD PRN PRN Reason: Hypoglycemia Protocol Stop: 02/08/24 17:48 Multivitamins (Multivitamin Tab) 1 tab PO QAM [place] Stop: 02/09/24 08:59 Last Admin: 01/12/24 08:57 Dose: 1 tab Ondansetron HCl (Ondansetron Inj 2 Mg/Ml 2 Ml Vial) 4 mg IV Q6H PRN PRN Reason: Nausea Stop: 02/08/24 17:48 Polyethylene Glycol (Polyethylene (Miralax) 17 Gm Pack) 17 gm PO DAILY PRN PRN Reason: Constipation Stop: 02/08/24 17:48 Vitamin D (Cholecalciferol 125 Mcg (5,000 Units) Tab) 250 mcg PO QAM [place] Stop: 02/09/24 08:59 Last Admin: 01/12/24 08:57 Dose: 250 mcg
[2024-01-13] MEDS: FUROSEMIDE INJ 20 MG/2 ML VIAL IV ONE (08:21)
[2024-01-13] MEDS: THIAMINE HCL 100 MG in SYRINGE 9 ML IV SCH (09:52)
[2024-01-13] MEDS: ACETAMINOPHEN 325 MG TAB PO PRN (11:48)
[2024-01-13 20:04] VITALS: RESP 18
[2024-01-13] MEDS ORDERED: SODIUM CHLORIDE 0.65% NA SOLN 45 ML (OCEAN) PRN (20:39)
[2024-01-14 06:06] LABS: Mean Corpuscular Hemoglobin 33.9 pg (25.0-34.0); Mean Corpuscular Hgb Conc 33.3 g/dL (32.0-36.0); Mean Corpuscular Volume 101.7 fL (80.0-100.0); Mean Platelet Volume 12.4 fL (9.4-12.4); Platelet Count 86 K/uL (130-400); RDW Coefficient of Variation 17.4 % (11.5-14.5); RDW Standard Deviation 65.5 fL (36.4-46.3); Red Blood Count 2.36 M/uL (4.20-5.40); White Blood Count 2.72 K/ul (4.8-10.8)
[2024-01-14 06:33] LABS: BUN Creatinine Ratio 35.4 (10-20); Calcium 7.9 mg/dl (8.6-10.3); Creatinine Clr Calc Pharmacy 94.4 ml/min; Magnesium 2.1 mg/dl (1.7-2.4); Phosphorus 3.3 mg/dl (2.5-4.9); Potassium 3.6 mmol/L (3.5-5.1)
[2024-01-14 06:57] LABS: Ovalocytes 1+; Polychromasia 2+
[2024-01-14 07:02] LABS: Basophils # (auto) 0.01 K/uL (0.00-0.20); Basophils % (auto) 0.4 %; Eosinophils # (auto) 0.01 K/uL (0.00-0.50); Eosinophils % (auto) 0.4 %; Immature Granulocytes # (auto) 0.03 K/uL (0.01-0.20); Immature Granulocytes % (auto) 1.1 %; Lymphocytes # (auto) 1.14 K/uL (1.20-3.40); Lymphocytes % (auto) 41.9 %; Monocytes # (auto) 1.01 K/uL (0.11-0.59); Monocytes % (auto) 37.1 %; Neutrophils # (auto) 0.52 K/uL (1.40-6.50); Neutrophils % (auto) 19.1 %
[2024-01-14] MEDS: POTASSIUM CHLORIDE CRTAB 20 MEQ TABCR PO STA (07:32)
[2024-01-14 07:37] VITALS: BP 149/70; PULSE 88; TEMP 97.9; O2SAT 96
--- NOTE | 2024-01-14 09:44 | Hematology/Oncology Prog Note ---
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 Results discussed with patient and her daughter at bedside. Recommended transfer to tertiary center for possible induction treatment. Patient's daughter indicated that they would like some time to process information before transfer is initiated. They will let hospitalist team know when they are ready for transfer to be initiated. Hematology will sign off at this time. Please feel free to call if you have any further questions Admission and Anticipated Discharge Date Admission Date: January 09, 2024 Subjective Bone marrow biopsy completed on 01/11/2024. Per discussion with pathology, aspirate suggestive of acute leukemia with more than 50% blasts. Results & Data Vital Signs (Past 12 Hours) Vital Signs Temp Pulse Resp BP Pulse Ox O2 Del Method 01/14/24 07:37 36.6 C 88 18 149/70 H 96 Room Air 01/14/24 07:20 Room Air
--- NOTE | 2024-01-14 11:22 | Discharge Summary ---
Date of Service January 14, 2024 Admission HPI Per Admitting Provider Rina You is a 78y/o F with PMHx significant for diet-controlled DM type II, dyslipidemia, paroxysmal SVT, HTN, GERD with esophagitis, primary osteoarthritis of both knees, NEVA, persistent insomnia and sacroiliitis who presented to the ED via EMS for evaluation of right lower extremity pain and erythema. History obtained from the patient and associated chart review. Patient started to develop some pain, swelling and mild erythema of her right calf region approximately 8 days ago. She ended up going to the [facility] ED last Sunday and they performed a venous doppler ultrasound o n the right lower extremity which was negative for a DVT. She was not discharged home on antibiotics at that time as her presentation was thought to be not consistent with cellulitis. She was however seen by her PCP this past Sunday and diagnosed with right lower extremity cellulitis as her symptoms did not improve. She was started on a oral course of cephalexin at that time but unfortunately her symptoms are still not improving. Her right lower extremity is still erythematous and now slightly warm to the touch. She has also developed malaise/fatigue and poor appetite over the past couple of days. Her right calf region is tender to palpation. Patient also endorses some left calf "tightness" and tenderness to palpation which has been ongoing for a few weeks. She reports that she has been having difficulty ambulating around the house due to the pain in her bilateral calves however she denies any recent falls or trauma. She does not use any assistive devices at home for ambulation. No documented fevers however she does endorse some mild chills. She has had previous episodes of cellulitis that have responded well to oral antibiotics. There was no known injury to the right lower extremity prior to the onset of her symptoms. She is now s/p 2g of IV Rocephin in the ED. VSS, no evidence of sepsis. Admission Exam Per Admitting Provider General: WD/WN, vitals as above, NAD, sitting up in bed, very pleasant, conversing appropriately. A+Ox3, euthymic affect. HEENT: Normocephalic, atraumatic. Conjunctivae normal, anicteric sclerae. External ear and nose normal, oropharynx normal. Respiratory: Normal respiratory effort, lungs clear to auscultation, no wheeze, rales, rhonchi. No accessory muscle use. Cardiovascular: Regular rate, rhythm, no murmur, normal peripheral pulses, no BLE edema. Vessels: No JVD. Abdomen/GI: Normal bowel sounds, soft, nontender to palpation in all quadrants. Extremities/MSK: Erythema along R medial calf region, mild RLE swelling/warm to the touch/TTP. TTP of L calf region as well. Neurologic: No focal deficits, CN's II-XI not formally tested but appear grossly intact bilaterally. Principal Diagnosis Acute leukemia RLE cellulitis Discharge Exam General: WD/WN F in NAD, on suppl. O2 HEENT: NC/AT. Conjunctivae normal, anicteric sclerae. External ear and nose normal Respiratory: Normal respiratory effort, CTAB Cardiovascular: Regular rate, rhythm, no murmur, normal peripheral pulses, no BLE edema. Abdomen/GI: Normal bowel sounds, soft, nontender to palpation in all quadrants. Extremities/MSK: Erythema along R medial calf region, mild RLE swelling/warm to the touch - nontender to palp (tenderness resolved, erythema much improved) Neurologic: awake, alert, oriented, answers appropriately, no facial asymmetry, moves extremities Discharge Data Allergies Allergy/AdvReac Type Severity Reaction Status Date / Time No Known Allergies Allergy Mild Verified 12/29/21 10:15 Consultations 01/09/24 13:55 ED Decision to Admit Stat 01/10/24 07:49 Consult Infectious Diseases Routine 01/10/24 07:51 Consult Hematology Routine Ordered Studies 01/09/24 10:38 US venous doppler LE RT Stat FINDINGS: Normal flow, compressibility, phasicity and augmentation. No fluid collections. IMPRESSION: No sonographic evidence of deep venous thrombosis. 01/09/24 14:54 US venous doppler LE LT Stat HISTORY: Left calf pain EXAM: Doppler ultrasound left lower extremity Real-time scanning with color flow and pulse Doppler analysis obtained. No deep venous thrombosis or occlusive phenomena is seen. Compressive maneuvers are normal. IMPRESSION: Negative for DVT left lower extremity. 01/11/24 09:45 IR bone marrow bx & asp Routine PROCEDURE: Procedure and risks were explained. Informed consent was obtained. A final timeout was completed. The patient was placed prone on the CT exam table. The left gluteal region was prepped and draped in sterile fashion. 1% lidocaine was utilized for skin anesthesia. The patient received 1 g Tylenol IV. Utilizing CT guidance, an 11-gauge bone biopsy needle was advanced into the left iliac bone. Multiple aspirates and one bone core was obtained and given to the lab. The needle was removed and Band-Aid applied. The patient tolerated the procedure well. Vital signs will be monitored on the floor. IMPRESSION: Bone marrow biopsy as above. Performed, dictated, and signed by Abhi Rodriguez PA-C; to be co-signed by Dr. Caden Connolly. Hospital Course (1) Failure of outpatient treatment: (2) Cellulitis of right lower extremity: Gerson You is a 78y/o F with PMHx significant for diet-controlled DM type II, dyslipidemia, paroxysmal SVT, HTN, GERD with esophagitis, primary osteoarthritis of both knees, NEVA, persistent insomnia and sacroiliitis who presented to the ED via EMS for evaluation of right lower extremity pain and erythema. She was recently diagnosed with right lower extremity cellulitis by her PCP over the weekend and has failed an outpatient course of oral Keflex. Please refer to the HPI for further details. RLE Cellulitis, Failure of O/P Treatment: No evidence of sepsis on admission. CXR negative. Procalcitonin/lactate both negative. RLE venous doppler ultrasound negative for DVT. S/p 2g IV Rocephin in the ED. Started w/ IV Unasyn on admission Blood cultures NG in 48 hrs Changed to cefazolin per discussion ID -> now switched to Keflex 500 QID - recommend total of 14 day treatment 01/12 R LE tenderness and erythema resolved L Calf Pain: Patient with some L calf pain and TTP in this region on exam on admission. LLE venous doppler ultrasound obtained - no DVT. No previous history of DVT/PE per the patient. Tenderness resolved now. Pancytopenia: WBC 2.92k, RBC 2.84, hemoglobin 9.7 and platelet count 102 on admission. Per review of outpatient records on [facility], it appears patient has not been pancytopenic in the past. Patient also denies ever having this problem. However, notably her WBC was 3.73k back in March of this year. Routine anemia workup ordered on admission. B12 and folate levels normal, rest of the panel pending. TSH wnl. Peripheral smear obtained Heme/onc consulted - pt is s/p bone marrow biopsy on (01/11/2024) 01/14/2024 - Discussed w/ Dr. Gaines - Per discussion with pathology, aspirate suggestive of acute leukemia with more than 50% blasts. 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 Results discussed with patient and her daughter at bedside. Recommended transfer to tertiary center for possible induction treatment. Patient to be transferred to [facility]. Hypoxia - resolved - pt denies any oxygen needs at home - was on 2L, IS ordered, CXR w/ mild pulm. congestion, + crackles on exam - received small dose lasix -> now on RA and CTAB - cont. to monitor Diet-Controlled DM Type II: No home diabetic agents, SSI while inpatient. Hgb A1c 6.5% ~9 months ago per chart review. Current A1c 7.5% BSG checks ACHS. Other Chronic Medical Conditions: HLD/NEVA --> Can continue home medications for these specific conditions. Can also continue home gabapentin for neuropathic pain. Total Time Total Time Spent Total Time Spent (In Minutes): 40 Discharge Plan Discharge Items Patient Disposition: Transfer Acute Care Hospital Reason For Visit: RLE CELLULITIS - FAILURE OF OUTPATIENT TREATMENT Discharge Diagnosis: Acute leukemia RLE cellulitis Activity: Per Instructions section Non-emergency contact: Primary Care Provider, Specialist and Oncologist Call non-emergency contact if: you have any medication questions and your symp toms worsen Follow-up/Referrals: Vidal Card MD [Primary Care Provider] - (Date & Time 01/22/2024 11:00 AM Provider Vidal Card MD Department Family Practice [facility] ) Diet: Carb Consistent or DM2 Addtl Attending Provider Instructions: Patient to be transferred to [facility] for treatment of acute leukemia. Pending Studies at Discharge: Yes Studies:: Final report- results of bone marrow biopsy Stand-Alone Forms: My [facility] Skilled Items Patient informed of condition?: Yes DNR: No Discharge Level of Care: Other Communicable Disease: No Discharge Prognosis: Other Lines: Peripheral IV Urinary Catheter: No Medications and DC Order Prescriptions: Continued multivitamin Tablet 1 tab PO QAM ascorbic acid (vitamin C) [Vitamin C] 500 mg Tablet 500 mg PO QAM vitamin E 400 unit Tablet 400 unit PO QAM ibuprofen 200 mg Tablet 600 mg PO QAM PRN (Reason: Pain) Calcium 600 + D(3) 600 mg calcium- 200 unit Capsule 2 cap PO QAM cholecalciferol (vitamin D3) [Vitamin D3] 125 mcg (5,000 unit) Tablet 250 mcg PO QAM acetaminophen 500 mg Tablet 500 mg PO HS PRN (Reason: pain) calcium carbonate [Tums] 200 mg calcium (500 mg) Tablet,Chewable 200 mg PO BID PRN (Reason: Heartburn) atorvastatin 20 mg tablet 20 mg PO QAM lorazepam 0.5 mg tablet 0.25 - 0.5 mg PO HS PRN (Reason: anxiety ) gabapentin 100 mg capsule 100 mg PO BID citalopram 10 mg tablet 10 mg PO DAILY Changed cephalexin 500 mg capsule 500 mg PO QID Qty: 0 0RF Discharge Orders: Discharge Order (Routine); Ordered 01/14/24 Ordered By: Vick Gutierrez Admission Data Admit Date/Time: 01/09/24 14:16 Attending Provider: Vick Gutierrez Admit Provider: Wayne Rodriguez Primary Care Provider: Vidal Card Other Providers: Wayne Rodriguez; Magan Espitia; Betty Shah; Evan Kingston I.; Murali Paulino II; Darline Villalpando; Cortes Nicole; Vic Tabor; Freddie Magaña; Kirsty Gaines
[2024-01-15 13:12] LABS: Babesia microti DNA Not Detected (Not Detected)
== END 2024-01-14 20:16 | disposition short-term general hospital (02) | DRG 603 ==
LOC: ED 09:53 → 3E 14:16 → SUATTDRO 14:16 → 3E 17:22

== ENCOUNTER 2024-01-30 15:10 | Inpatient (IN) ==
[2024-01-30] MEDS ORDERED: ACETAMINOPHEN 325 MG TAB PO PRN (18:39)
[2024-01-30] MEDS ORDERED: ONDANSETRON INJ 2 MG/ML 2 ML VIAL IV PRN (18:39)
[2024-01-30] MEDS ORDERED: POLYETHYLENE (MIRALAX) 17 GM PACK PO PRN (18:39)
[2024-01-30] MEDS ORDERED: SODIUM CHLORIDE 0.9% 100 ML IV PRN (18:39)
[2024-01-30] MEDS ORDERED: SODIUM CHLORIDE 0.9% 50 ML IV PRN (18:39)
--- NOTE | 2024-01-30 21:25 | History & Physical Report ---
Date of Service January 30, 2024 Assessment & Plan (1) AML (acute myeloblastic leukemia): (2) Pancytopenia: Plan: Patient discharged from [facility] today 01/30/2024 diagnosed with acute myeloid leukemia. S/P decitabine/Venetoclax 01/24/24-01/30/24. Decitabine treatment is completed. [facility] recommended continue venetoclax 100mg daily Patient is currently on antimicrobial prophylaxis for neutropenia with acyclovir 400 mg twice daily, voriconazole 200mg BID, Levaquin 500mg Q24H. It was recommended PRBC transfusion if Hgb less than 7 and platelet transfusion of PLT less than 10. Neutropenic precautions Will need to monitor closely for fever Spoke with blood bank and PRBC for pt will need to be obtained from the [facility] CBC, BMP in am Oncology/hematology consult to help establish care locally. Saw Dr Gaines with recent admission. Primary oncologist Dr Curiel. Has follow up appointment on 03/05/24 at 3:20pm at [facility] [address] [address], [address] [place] [address] (3) HTN (hypertension): Plan: At [facility] amlodipine started for hypertension. Will need to monitor as pt with BLE edema. Unclear if this from chemo agents and/or amlodipine. (4) Acute respiratory failure: Plan: At [facility] requiring 1-2 L oxygen via NC intermittently (5) Dyslipidemia: Plan: At [facility] prior home atorvastatin was switched to rosuvastatin due to interaction with posaconazole (6) Anxiety: Plan: At [facility] buspirone started and home citalopram and gabapentin was continued (7) Diabetes mellitus, type II: Plan: A1c: 7.5 on 01/10/24 Further assessment and plan per Dr Shea. See addendum. Admission and Anticipated Discharge Date Admission Date: January 30, 2024 History of Present Illness Chief Complaint: Transfer from [facility] back to [facility] for Acute myeloid leukemia Primary Care Provider: Vidal Card MD Patient is 78-year-old female with PMH DM II, dyslipidemia, paroxysmal SVT, HTN, anxiety, GERD transferred back to [facility] from [facility]. Per chart review patient with hospitalization at [facility] 01/09/2024-01/14/2024 in which she presented for RLE cellulitis and was found to be pancytopenic and further workup with bone marrow biopsy was suggestive of acute leukemia and oncology had recommended transfer to [facility]. Patient discharged from [facility] today 01/30/2024. Per discharge summary she was diagnosed with acute myeloid leukemia. She had Stewart placed on 01/18/2024. Decitabine/Venetoclax given 01/24/24-01/30/24. Decitabine treatment is completed. She is to continue venetoclax 100mg daily Patient had neutropenic fever. Fever on 01/15/2024 with reported negative infectious workup with negative urine culture, blood cultures, CXR, RVP. Had repeat fever on 01/22/2024 with reported negative peripheral blood culture, central line culture, UA, urine culture, CXR, CT abdomen pelvis, RVP. Last fever was on 01/23/2024 Patient is currently on antimicrobial prophylaxis for neutropenia with acyclovir 400 mg twice daily, voriconazole 200mg BID, Levaquin 500mg Q24H. Patient has required PRBC and platelet transfusions. Today WBC: 0.9, Hgb: 7.7, Plt: 52 It is recommended PRBC transfusion if Hgb less than 7 and platelet transfusion of PLT less than 10. It is reported patient has been requiring 1-2 L oxygen via nasal cannula intermittently and has been requiring more overnight which was suspected secondary to volume overload from receiving IVF for TLS prevention. During hospitalization amlodipine started for hypertension. Her home citalopram and gabapentin was continued. Buspar was started. Home atorvastatin was switched to rosuvastatin due to interaction with posaconazole She has been on prophylactic Lovenox 40 mg SQ daily Upon direct admission this evening patient states feeling tired after all of the events of the past 2 weeks. She reports since treatment has been having bilate ral lower extremity edema. She denies sensation of shortness of breath but it is reported she has been requiring 1.5 to 2 L oxygen via nasal cannula while at [facility]. Patient denies chest pain, palpitations. Denies recent fever. Reports since treatment has a metallic taste in her mouth and has decreased appetite and decreased oral intake. Denies nausea or vomiting, diarrhea, constipation, fever/chills over past couple of days, diaphoresis, BEAN, dizziness, vision changes, neck pain, CP, cough, sore throat, otalgia, rhinorrhea, abdominal pain, paresthesias, rashes, urinary symptoms. Primary oncologist Dr Curiel. Has follow up appointment on 03/05/24 at 3:20pm at [facility] [address] [place] [address] Dr, [address], [address] [place] [address] Allergies Allergy/AdvReac Type Severity Reaction Status Date / Time No Known Allergies Allergy Mild Verified 12/29/21 10:15 Home Medications Medication Instructions Recorded Confirmed Type acetaminophen 500 mg tablet 1,000 mg PO Q6 PRN .FEVER/MILD 11/17/19 01/30/24 History PAIN 1-3 citalopram 10 mg tablet 10 mg PO QAM 01/09/24 01/30/24 History gabapentin 100 mg capsule 100 mg PO BID 01/09/24 01/30/24 History acyclovir 200 mg capsule 400 mg PO BID 01/30/24 01/30/24 History allopurinol 300 mg tablet 300 mg PO DAILY 01/30/24 01/30/24 History amlodipine 10 mg tablet 10 mg PO DAILY 01/30/24 01/30/24 History buspirone 5 mg tablet 5 mg PO DAILY 01/30/24 01/30/24 History enoxaparin 40 mg/0.4 mL 40 mg subcut .EVERY 24 HOURS 01/30/24 01/30/24 History subcutaneous syringe levofloxacin 750 mg tablet 750 mg PO .EVERY 24 HOURS 01/30/24 01/30/24 History loperamide 2 mg tablet 2 mg PO UD PRN Diarrhea 01/30/24 01/30/24 History melatonin 5 mg tablet 5 mg PO HS PRN Insomnia 01/30/24 01/30/24 History methyl salicylate 15 %-menthol 10 1 applic topical UD PRN Muscle Pain 01/30/24 01/30/24 History % topical cream ondansetron HCl 4 mg tablet 4 mg PO Q6H PRN Nausea And Vomiting 01/30/24 01/30/24 History ondansetron HCl 8 mg tablet 8 mg PO DAILY 01/30/24 01/30/24 History prochlorperazine edisylate 5 mg/mL 10 mg IV Q4H PRN Nausea And 01/30/24 01/30/24 History injection solution Vomiting rosuvastatin 5 mg tablet 5 mg PO DAILY 01/30/24 01/30/24 History venetoclax 100 mg tablet 100 mg PO DAILY 01/30/24 01/30/24 History (Venclexta) voriconazole 200 mg tablet 200 mg PO Q12 01/30/24 01/30/24 History Past Med/Surg History Problem List (Updated 01/30/24 @ 22:14 by Nica Goncalves PA-C) Acute respiratory failure Anxiety Diabetes mellitus, type II Dyslipidemia HTN (hypertension) AML (acute myeloblastic leukemia) Fever Pancytopenia (Acute) Cellulitis of right lower extremity (Acute) Failure of outpatient treatment (Acute) Cellulitis of right lower extremity Biceps tendinitis of right shoulder Lumbar spondylosis 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 Does not need to follow with cardio. Sciatica Right -- follows with Dr Mandel ([place]) Elevated cholesterol Controlled with statin Surgical History S/P epidural steroid injection History of appendectomy H/O cardiac radiofrequency ablation 2004 H/O: hysterectomy MONICA with BSO Family History Other Coronary heart disease Diabetes Leukemia No family history of adverse response to anesthesia Social History Smoking Status: Never smoker Second Hand Exposure: No; Do You Dip or Chew Tobacco: No; Hx Alcohol Use: Yes Alcohol type: wine Hx Substance Use: No Preferred Language: Polish Communication Ability: Effective Visual Impairment: No Limitations Front Maker Lockstitch Required: No Beliefs That Will Affect Care: None marital status: Current Living Situation: Family Current Living Situation Comment: daughter and grandson Other Information That Helps Us Care for You: No Feels Safe at Home: Yes Safety Concerns: Feels Safe At This Time Assistive Devices: Glasses Review of Systems Review of Systems: All systems reviewed & are unremarkable except as noted in HPI & below Physical Exam Physical Exam: General: no acute distress, appears pale and fatigued, WDWN elderly femal Head: normocephalic, atraumatic Eyes: conjunctiva pale, anicteric ENT: normal inspection external ears, nose, mucous membranes moist Neck: supple, trachea midline Lungs: clear, no respiratory distress on supplemental oxygen, diminished breath sounds bases CV: RRR, + pretibial edema Abd: normal BS, soft, non-tender Ext: no cyanosis, no calf tenderness Neuro: A&O x 3, no focal deficits noted, normal affect Skin: pale, warm, dry Code Status & VTE Plan VTE Prophylaxis Plan VTE Prophylaxis will be ordered: Yes Supervising Physician Co-Signing Physician Notes IM ATTENDING : Patient seen and examined. History obtained from patient and records. Concur with salient points upon review of preceding documentation by Ms. Nica Goncalves PA-C. I take responsibility for plan of care below. FINAL ASSESSMENT AND PLAN as follows : Hypoxemic respiratory failure Attributed to volume overload from aggressive IV hydration during chemotherapy at [facility] CXR tonight shows pneumonia, patient without unusual cough symptoms Rule out CHF given mild BNP elevation AML ongoing chemotherapy on anti-infective prophylaxis Pancytopenia secondary to above Hypertension, stable Hyperlipidemia on statin Rx PSVT status post ablation DM2 on oral medications, suboptimal control as of recent hemoglobin A1c of 7.24 August 2023 Anxiety/mood disorder, at baseline GMF Supplemental O2 Baseline VBG Respiratory BioFire Baseline TTE Continue chemotherapy Oncology consult re: AML on chemotherapy ([facility] oncologist was trying to contact [facility] specialist to coordinate local care as per signout.) Basal bolus insulin, ISS BG goal 1 10-1 40, carb count coverage DVT prophylaxis. SCDs re: thrombocytopenia Full code Patient requests for daughter to be given updates regarding care. Ms. Chastity Pathak, contact number # [phone]. Text document was generated using [employer] voice recognition software. It may contain grammatical or spelling errors. Kindly contact undersigned for clarification of any documentation item in question.
[2024-01-30] MEDS ORDERED: MELATONIN 3 MG TAB PO PRN (23:06)
[2024-01-30] MEDS ORDERED: LOPERAMIDE HCL 2 MG CAP PO PRN (23:06)
[2024-01-30 23:20] LABS: Base Excess VBG 7.5 mEq/L; HCO3 VBG 33 mmol/L; Oxygen Saturation VBG 73.9 %; PCO2 VBG 47 mmHg (38-50); PO2 VBG 42 mmHg; pH VBG 7.45 (7.36-7.41)
[2024-01-30] MEDS ORDERED: PROMETHAZINE 6.25 MG/50.25 ML BAG IV PRN (23:41)
[2024-01-30] MEDS ORDERED: GLUCOSE 40% GEL 15 GM TUBE PO PRN (23:41)
[2024-01-30] MEDS ORDERED: CARBOHYDRATES FOR HYPOGLYCEMIA PO PRN (23:41)
[2024-01-30] MEDS ORDERED: GLUCAGON FOR INJ 1 MG VIAL SQ PRN (23:41)
[2024-01-30] MEDS ORDERED: GLUCOSE 10 TAB/TUBE PO PRN (23:41)
[2024-01-30] MEDS ORDERED: DEXTROSE 50% 50 ML SYRINGE IV PRN (23:41)
[2024-01-30 23:42] LABS: BUN Creatinine Ratio 19.6 (10-20); Calcium 7.5 mg/dl (8.6-10.3); Creatinine Clr Calc Pharmacy 92.6 ml/min; Potassium 3.5 mmol/L (3.5-5.1)
[2024-01-30 23:50] LABS: Hematocrit (blood only) 22.1 % (37.0-47.0); Hemoglobin 7.2 g/dl (12.0-16.0); Mean Corpuscular Hgb Conc 32.6 g/dL (32.0-36.0); Mean Corpuscular Volume 98.2 fL (80.0-100.0); Platelet Count 45 K/uL (130-400); Polychromasia 2+; RDW Coefficient of Variation 16.6 % (11.5-14.5); RDW Standard Deviation 59.4 fL (36.4-46.3); Red Blood Count 2.25 M/uL (4.20-5.40)
[2024-01-30 23:53] LABS: Immature Granulocytes # (auto) 0.02 K/uL (0.01-0.20); Immature Granulocytes % (auto) 2.4 %; Lymphocytes # (auto) 0.63 K/uL (1.20-3.40); Lymphocytes % (auto) 76.8 %; Monocytes # (auto) 0.06 K/uL (0.11-0.59); Monocytes % (auto) 7.3 %; Neutrophils # (auto) 0.11 K/uL (1.40-6.50); Neutrophils % (auto) 13.5 %; White Blood Count 0.82 K/ul (4.8-10.8)
[2024-01-30 23:56] LABS: Partial Thromboplastin Ratio 1.2; Partial Thromboplastin Time 32 Seconds (21-31)
[2024-01-30] MEDS: INSULIN ASPART PER UNIT CHARGE SC SCH (23:59)
[2024-01-31] MEDS: POTASSIUM CHLORIDE CRTAB 20 MEQ TABCR PO STA
[2024-01-31] MEDS: ACYCLOVIR 200 MG CAP PO SCH (00:01)
[2024-01-31] MEDS: VORICONAZOLE 200 MG TABLET PO SCH (00:01)
[2024-01-31] MEDS: GABAPENTIN 100 MG CAP PO SCH (00:02)
--- NOTE | 2024-01-31 00:27 | XRay Report ---
Exam(s): XR CXR 1 VIEW EXAM: XR Chest, 1 View CLINICAL HISTORY: Reason for exam: low o2. TECHNIQUE: Frontal view of the chest. COMPARISON: Prior chest x-ray from January 12, 2024. FINDINGS: There is a right IJ approach dialysis catheter with the distal tip at the SVC/RA junction. Lungs: Moderate peribronchial thickening of the central and lobar bronchi are with increased interstitial opacities and patchy opacity at the left lung base. No consolidation. Pleural space: Unremarkable. No pneumothorax. Heart: Cardiomegaly. Mediastinum: Unremarkable. Normal mediastinal contour. Bones/joints: Unremarkable. No acute fracture. IMPRESSION: Bronchitis with left lower lobe infiltrate. Communications: Verify Receipt Electronically signed by: Gabrielle Crawford MD 01/31/24 00:26 AM
[2024-01-31 02:08] LABS: Adenovirus PCR Not Detected (NotDetected); Bordetella parapertussis PCR Not Detected (NotDetected); Bordetella pertussis PCR Not Detected (NotDetected); Chlamydia pneumoniae PCR Not Detected (NotDetected); Coronavirus 229E PCR Not Detected (NotDetected); Coronavirus CoV-2 (COVID19)PCR Not Detected (NotDetected); Coronavirus HKU1 PCR Not Detected (NotDetected); Coronavirus NL63 PCR Not Detected (NotDetected); Coronavirus OC43PCR Not Detected (NotDetected); Human Metapneumovirus PCR Not Detected (NotDetected); Influenza A PCR Not Detected (NotDetected); Influenza B PCR Not Detected (NotDetected); Mycoplasma pneumoniae PCR Not Detected (NotDetected); Parainfluenza Virus 1 PCR Not Detected (NotDetected); Parainfluenza Virus 2 PCR Not Detected (NotDetected); Parainfluenza Virus 3 PCR Not Detected (NotDetected); Parainfluenza Virus 4 PCR Not Detected (NotDetected); Respiratory Syncytial VirusPCR Not Detected (NotDetected); Rhinovirus/Enterovirus PCR Not Detected (NotDetected)
[2024-01-31] MEDS: HEPARIN 100 UNIT/ML 5ML FLUSH FLUSH PRN (05:05)
[2024-01-31 05:29] LABS: Calcium 7.6 mg/dl (8.6-10.3); Creatinine Clr Calc Pharmacy 115.1 ml/min; Potassium 3.9 mmol/L (3.5-5.1)
[2024-01-31 06:47] LABS: Hematocrit (blood only) 22.1 % (37.0-47.0); Hemoglobin 7.3 g/dl (12.0-16.0); Mean Corpuscular Hemoglobin 32.6 pg (25.0-34.0); Mean Corpuscular Volume 98.7 fL (80.0-100.0); Mean Platelet Volume 12.3 fL (9.4-12.4); Platelet Count 43 K/uL (130-400); Polychromasia 1+; RDW Coefficient of Variation 16.1 % (11.5-14.5); RDW Standard Deviation 57.9 fL (36.4-46.3); Red Blood Count 2.24 M/uL (4.20-5.40)
[2024-01-31 06:49] LABS: Lymphocytes # (auto) 0.45 K/uL (1.20-3.40); Lymphocytes % (auto) 66.2 %; Monocytes # (auto) 0.08 K/uL (0.11-0.59); Monocytes % (auto) 11.8 %; Neutrophils # (auto) 0.15 K/uL (1.40-6.50); White Blood Count 0.68 K/ul (4.8-10.8)
[2024-01-31] MEDS: levoFLOXacin 750 MG TAB PO SCH (09:27)
[2024-01-31] MEDS: ROSUVASTATIN CALCIUM 5 MG TAB PO SCH (09:28)
[2024-01-31] MEDS: allopurinoL 300 MG TAB PO SCH (09:28)
[2024-01-31] MEDS: amLODIPine BESYLATE 5 MG TAB PO SCH (09:28)
[2024-01-31] MEDS: busPIRone 5 MG TAB PO SCH (09:28)
[2024-01-31] MEDS: CITALOPRAM 20 MG TAB PO SCH (09:29)
[2024-01-31] MEDS ORDERED: ONDANSETRON 4 MG OD TAB PO PRN (12:00)
--- NOTE | 2024-01-31 12:06 | Hospitalist Progress Note ---
Date of Service January 31, 2024 Assessment & Plan (1) AML (acute myeloblastic leukemia): (2) Acute respiratory failure: (3) Physical deconditioning: (4) HTN (hypertension): (5) Dyslipidemia: (6) Anxiety: (7) Diabetes mellitus, type II: Plan Patient 78-year-old female who just diagnosed with AML discharged from [facility] to our facility for ongoing monitoring of her symptoms. Patient was diagnosed and started chemotherapy interventions at [facility]. Now on oral chemotherapeutic agents as well as prophylaxis treatments with antiviral, antifungal and antibiotics. Patient is still quite deconditioned and fatigued Blood counts this morning appear to be stable Phone conversation with patient's daughter. She understands patient may need home health versus short-term rehab. Her understanding from her she is that she just was not physically strong enough to go home yet and that she needed some of another couple days of monitoring of her blood counts. Also patient is on oxygen which is new for her. Daughter reports that they did extensive testing for any infectious etiologies while at [facility]. Ultimately it was determined that her intermittent fevers were due to her her cancer. Give 1 dose of Lasix orally today for daughters report that they have been treating her for some volume overload may help with titrating oxygen Continue oxygen support, titrate as able Follow blood counts with plans to transfuse PRBCs if hemoglobin less than 7, platelet transfusion if level less than 10 Physical therapy and Occupational Therapy Case management consultation 55 minutes spent in review of record, communication with family, evaluation at bedside and coordination of care Admission and Anticipated Discharge Date Admission Date: January 30, 2024 Subjective Patient states that she is still extremely fatigued and tired. Not confident that she would do well at home at all. Physical Exam Physical Exam: Constitutional: Alert, nontoxic, fatigued in appearance HEENT: Mucous membranes dry Lungs: Clear to auscultation, decreased, CV: S1-S2, regular, systolic murmur Abdomen: Soft, nontender, nondistended Extremities: Trace edema Neuro: No focal deficits Psych: Cooperative, normal mood Results & Data Results & Data Vital Signs (Past 12 Hours) Vital Signs Temp Pulse Resp BP Pulse Ox O2 Del Method O2 Flow Rate 01/31/24 07:35 36.7 C 80 16 127/53 L 95 Nasal Cannula 2.5 Diagnostic Findings Reviewed imaging, laboratory and diagnostic studies. Pertinent findings as below. WBCs 0.68 Hemoglobin 7.3 Platelets 43 BMP stable
--- NOTE | 2024-01-31 13:06 | Oncology Consultation ---
Date of Consultation January 31, 2024 Assessment & Plan (1) AML (acute myeloblastic leukemia): (2) Acute respiratory failure: (3) Physical deconditioning: Plan Patient newly diagnosed with AML for which she is s/p induction chemotherapy at [facility]. Continues with venetoclax at this time. -Continue with prophylactic acyclovir, voriconazole and levofloxacin -Plan for outpatient labs on Tuesdays and with goal of maintaining hemoglobin above 7 and platelet count above 10,000 -Will see her upon discharge from hospital for monitoring, transfusion support. Continue follow-up with [facility] hematology History of Present Illness Attending Physician: Davis Nicole, DO History of Present Illness 78-year-old female recently diagnosed with acute myeloid leukemia for which she is s/p induction chemotherapy with Decitabine/Venetoclax given 01/24/24-01/30/24 and she continues with venetoclax 100mg daily. Patient was directly transferred from [facility] to [facility] for continuation of care prior to discharge. She feels well overall, complains of fatigue and shortness of breath but otherwise denies any other issues. Was discharged on prophylactic acyclovir 400 mg twice daily, voriconazole 200mg BID, Levaquin 500mg P.o. daily. also requiring supplemental O2. Labs today significant for WBC of 0.68, hemoglobin 7.3, hematocrit 22.1, platelet count of 43,000. Allergies Allergy/AdvReac Type Severity Reaction Status Date / Time No Known Allergies Allergy Mild Verified 12/29/21 10:15 Home Medications Medication Instructions Recorded Confirmed Type acetaminophen 500 mg tablet 1,000 mg PO Q6 PRN .FEVER/MILD 11/17/19 01/30/24 History PAIN 1-3 citalopram 10 mg tablet 10 mg PO QAM 01/09/24 01/30/24 History gabapentin 100 mg capsule 100 mg PO BID 01/09/24 01/30/24 History acyclovir 200 mg capsule 400 mg PO BID 01/30/24 01/30/24 History allopurinol 300 mg tablet 300 mg PO DAILY 01/30/24 01/30/24 History amlodipine 10 mg tablet 10 mg PO DAILY 01/30/24 01/30/24 History buspirone 5 mg tablet 5 mg PO DAILY 01/30/24 01/30/24 History enoxaparin 40 mg/0.4 mL 40 mg subcut .EVERY 24 HOURS 01/30/24 01/30/24 History subcutaneous syringe levofloxacin 750 mg tablet 750 mg PO .EVERY 24 HOURS 01/30/24 01/30/24 History loperamide 2 mg tablet 2 mg PO UD PRN Diarrhea 01/30/24 01/30/24 History melatonin 5 mg tablet 5 mg PO HS PRN Insomnia 01/30/24 01/30/24 History methyl salicylate 15 %-menthol 10 1 applic topical UD PRN Muscle Pain 01/30/24 01/30/24 History % topical cream ondansetron HCl 4 mg tablet 4 mg PO Q6H PRN Nausea And Vomiting 01/30/2401/29 History ondansetron HCl 8 mg tablet 8 mg PO DAILY 01/30/24 01/30/24 History prochlorperazine edisylate 5 mg/mL 10 mg IV Q4H PRN Nausea And 01/30/24 01/30/24 History injection solution Vomiting rosuvastatin 5 mg tablet 5 mg PO DAILY 01/30/24 01/30/24 History venetoclax 100 mg tablet 100 mg PO DAILY 01/30/24 01/30/24 History (Venclexta) voriconazole 200 mg tablet 200 mg PO Q12 01/30/24 01/30/24 History Patient History Medical History Encounter for pre-operative examination SVT (supraventricular tachycardia) History of SVT- s/p 2004- no issues since. Does not need to follow with cardio. Sciatica Right -- follows with Dr Mandel ([place]) Elevated cholesterol Controlled with statin Surgical History S/P epidural steroid injection History of appendectomy H/O cardiac radiofrequency ablation 2004 H/O: hysterectomy MONICA with BSO Family History Other Coronary heart disease Diabetes Leukemia No family history of adverse response to anesthesia Social History Smoking Status: Never smoker Second Hand Exposure: No; Do You Dip or Chew Tobacco: No; Hx Alcohol Use: Yes Alcohol type: wine Hx Substance Use: No Preferred Language: Kinyarwanda Communication Ability: Effective Visual Impairment: No Limitations Oncology Nurse Navigator Required: No Beliefs That Will Affect Care: None marital status: Current Living Situation: Family Current Living Situation Comment: daughter and grandson Other Information That Helps Us Care for You: No Feels Safe at Home: Yes Safety Concerns: Feels Safe At This Time Assistive Devices: Glasses Results & Data Vital Signs (Past 12 Hours) Vital Signs Temp Pulse Resp BP Pulse Ox O2 Del Method O2 Flow Rate 01/31/24 07:35 36.7 C 80 16 127/53 L 95 Nasal Cannula 2.5
[2024-02-01 07:54] LABS: Hematocrit (blood only) 21.9 % (37.0-47.0); Hemoglobin 7.3 g/dl (12.0-16.0); Mean Corpuscular Hemoglobin 32.9 pg (25.0-34.0); Mean Corpuscular Hgb Conc 33.3 g/dL (32.0-36.0); Mean Corpuscular Volume 98.6 fL (80.0-100.0); Mean Platelet Volume 12.1 fL (9.4-12.4); Platelet Count 36 K/uL (130-400); RDW Coefficient of Variation 15.3 % (11.5-14.5); RDW Standard Deviation 55.1 fL (36.4-46.3); Red Blood Count 2.22 M/uL (4.20-5.40); White Blood Count 0.78 K/ul (4.8-10.8)
--- OUTSIDE RECORDS SUMMARY | 2024-02-01 11:21 | External Medical Summary | Summary of Care ---
Author Name Unknown Organization [facility] Address [address] [facility] [address] Phone [phone] Care Team Providers Care School Age Program Teacher Name Role Phone Vidal Card MD Primary Care Provider [phone] Encounter Details Date Type Department Care Team (Late st Contact Info) Description 01/18/2024 Result Scan Unspecified Department <No scans attached> Allergies No known active allergiesdocumented as of this encounter (statuses as of 01/30/2024) Medications CALCIUM 500/D 500-200 MG-UNIT OR TABS [...] TIMES DAILY 60 Capsule 5 4 Active LORazepam 0.5 MG Oral Tablet (Ativan)Indicatio ns:NEVA (generalized anxiety disorder) TAKE 1 TABLET BY MOUTH AT BEDTIME NEEDED FOR ANXIETY. CAN TAKE 1/2 TABLET OR 1 TABLET 60 Tablet 4 Active documented as of this encounter (statuses as of 01/30/2024) Active Problems Problem Noted Date Diagnosed Date Acute myeloid leukemia not having achieved remis connor 01/21/2024 Overweight (BMI 25.0-29.9) 10/05/2021 Spinal stenosis of [...] as of this encounter (statuses as of 01/30/2024) Resolved Problems Problem Noted Date Diagnosed Date [...] as of this encounter (statuses as of 01/30/2024) Immunizations Name Administration Dates Next Due H1N1 [...] 9:30 AM EST Telemedicine [facility] [address] [address] Suzanne Oquendo PA-C [address] [address] 03/25/2024 4:00 PM EST Office Visit Family Practice [facility] [address] [address] Vidal Card MD [address] [address] Health Maintenance Due Date Last Done Comments [...] Procedure Name Priority Date/Time Associated Diagnosis Comments OUTSIDE LAB RESULTS 01/18/2024 documented in this encounter Results * OUTSIDE LAB RESULTS (01/18/2024) 01/18/2024 us No Physician Data Unknown LABORATORY Final Result documented in this encounter Care Teams School Age Program Teacher Relationship Specialty Start Date End Date Vidal Card MD [address] [facility] [place] [address] PCP - General Family Medicine 01/08/19 documented as of this encounter
--- OUTSIDE RECORDS SUMMARY | 2024-02-01 11:21 | External Medical Summary | Summary of Care ---
Author Name Unknown Organization [facility] Address [address] [facility] [address] Phone [phone] Care Team Providers Care Metal Refiner Name Role Phone Vidal Card MD Primary Care Provider [phone] Encounter Details Date Type Department Care Team (Late st Contact Info) Description 01/18/2024 Result Scan Unspecified Department Vidal Card MD [address] [place] [address] <No scans attached> Allergies No known active allergiesdocumented as of this encounter (statuses as of 01/28/2024) Medications CALCIUM 500/D 500-200 MG-UNIT OR TABS [...] as of this encounter (statuses as of 01/28/2024) Active Problems Problem Noted Date Diagnosed Date [...] as of this encounter (statuses as of 01/28/2024) Resolved Problems Problem Noted Date Diagnosed Date [...] as of this encounter (statuses as of 01/28/2024) Immunizations Name Administration Dates Next Due H1N1 [...] AM EST Telemedicine [facility], [facility] [address] [address] Suzanne Oquendo PA-C [address] [address] 03/25/2024 4:00 PM EST Office Visit Family Practice [facility] [address] [address] Vidal Card MD [address] [address] Health Maintenance Due Date Last Done Comments [...] Procedure Name Priority Date/Time Associated Diagnosis Comments PATHOLOGY SCANNED RESULT 01/18/2024 documented in this encounter Results * PATHOLOGY SCANNED RESULT (01/18/2024) 01/18/2024 Vidal Card MD PATHOLOGY Final Res ult documented in this encounter Care Teams Metal Refiner Relationship Specialty Start Date End Date Vidal Card MD [address] [place] [address] PCP - General Family Medicine 01/08/19 documented as of this encounter
--- OUTSIDE RECORDS SUMMARY | 2024-02-01 11:22 | External Medical Summary | Summary of Care ---
Author Name Unknown Organization [facility] Address [address] [facility] [address] [address] Phone [phone] Care Team Providers Care Contact Lens Molder Name Role Phone Vidal Card MD Primary Care Provider [phone] Encounter Details Date Type Department Care Team (Late st Contact Info) Description 01/14/2024 Population Health External Data Unspecified Department Allergies No known active allergiesdocumented as of this encounter (statuses as of 01/14/2024) Medications CALCIUM 500/D 500-200 MG-UNIT OR TABS [...] as of this encounter (statuses as of 01/14/2024) Active Problems Problem Noted Date Diagnosed Date [...] as of this encounter (statuses as of 01/14/2024) Resolved Problems Problem Noted Date Diagnosed Date [...] as of this encounter (statuses as of 01/14/2024) Immunizations Name Administration Dates Next Due H1N1 [...] 9:30 AM EST Telemedicine [facility], [facility] [address] [address] Suzanne Oquendo PA-C [address] [address] 03/25/2024 4:00 PM EST Office Visit Family Practice [facility] [address] [address] Vidal Card MD [address] [address] Health Maintenance Due Date Last Done Comments [...] filedocumented as of this encounter Care Teams Contact Lens Molder Relationship Specialty Start Date End Date Vidal Card MD [address] [place] [address] PCP - General Family Medicine 01/08/19 documented as of this encounter
--- NOTE | 2024-02-01 11:57 | Hospitalist Progress Note ---
Date of Service February 01, 2024 Assessment & Plan (1) AML (acute myeloblastic leukemia): (2) Acute respiratory failure: (3) Physical deconditioning: (4) HTN (hypertension): (5) Dyslipidemia: (6) Anxiety: (7) Diabetes mellitus, type II: Plan Patient just recently diagnosed with AML underwent induction treatment at [facility]. Returns to [facility] for disposition planning. Two-step oxygen testing performed, patient has remained on adequate O2 sat with room air, oxygen not required for home CBC is remained stable, has not required transfusions while here Therapy evaluation noted, recommending wheeled walker and home therapy Case management updated and will help coordinate with patient and family home health care Voicemail left on daughter's phone to anticipate plans for discharge tomorrow. Continue other medications as prescribed, monitor glucose insulin coverage as needed Admission and Anticipated Discharge Date Admission Date: January 30, 2024 Subjective No acute issues overnight. Patient still really fatigued and wiped out Physical Exam Physical Exam: Constitutional: Alert, nontoxic. No acute distress. HEENT: Mucous membranes moist. Lungs: Decreased breath sounds, no wheezes CV: S1-S2, regular Abdomen: Soft, nontender, nondistended Extremities: No significant edema Neuro: No focal deficits, generalized weakness Psych: Cooperative, normal mood Results & Data Results & Data Vital Signs (Past 12 Hours) Vital Signs Temp Pulse Pulse Pulse Pulse Resp Resp 02/01/24 10:54 103 H 94 H 87 20 02/01/24 07:49 36.8 C 83 14 02/01/24 07:30 Resp Resp BP Pulse Ox Pulse Ox Pulse Ox Pulse Ox 02/01/24 10:54 16 16 93 96 94 02/01/24 07:49 138/68 94 02/01/24 07:30 O2 Del Method O2 Flow Rate 02/01/24 10:54 02/01/24 07:49 Room Air 02/01/24 07:30 Nasal Cannula 2 Diagnostic Findings CBC reviewed, stable
[2024-02-01] MEDS: CALCIUM CARBONATE 500 MG CHEWABLE TAB PO STA (19:53)
[2024-02-01] MEDS: ONDANSETRON INJ 2 MG/ML 2 ML VIAL IV PRN (20:42)
[2024-02-02 07:47] VITALS: BP 135/71; PULSE 92; RESP 18; TEMP 98.2; O2SAT 95
[2024-02-02 10:28] LABS: Hemoglobin 7.2 g/dl (12.0-16.0); Mean Corpuscular Hemoglobin 31.9 pg (25.0-34.0); Mean Corpuscular Hgb Conc 32.7 g/dL (32.0-36.0); Mean Corpuscular Volume 97.3 fL (80.0-100.0); Mean Platelet Volume 10.6 fL (9.4-12.4); Platelet Count 33 K/uL (130-400); RDW Coefficient of Variation 15.1 % (11.5-14.5); RDW Standard Deviation 54.1 fL (36.4-46.3); Red Blood Count 2.26 M/uL (4.20-5.40); White Blood Count 0.64 K/ul (4.8-10.8)
--- NOTE | 2024-02-02 11:34 | Discharge Summary ---
Discharge Summary Date of Service February 02, 2024 Principal Dx & Hospital Course #1 = Principal Diagnosis (1) AML (acute myeloblastic leukemia): (2) Acute respiratory failure: (3) Physical deconditioning: (4) HTN (hypertension): (5) Dyslipidemia: (6) Anxiety: (7) Diabetes mellitus, type II: Plan Patient presented to [facility] as a direct admit from [facility] after she had been transferred there for acute AML. She underwent induction therapies there and return to our service due to need for monitoring of her blood counts and ongoing recovery. Patient was cared for in the hospital. Had daily CBCs. Her hemoglobin remained stable and did not require any blood transfusions. Recommendations were to transfuse if her hemoglobin was less than 7. Her WBCs and platelets fluctuated but overall stabilized. She was seen by therapies and case management. She was able to get up and ambulate in her room and care for herself. It is recommended she can return home with home health care. This was coordinated. On the day of discharge her vital signs are stable. Overall laboratory studies stable. They already have coordinate outpatient care and follow-up with oncology for ongoing management of her AML. Patient did see his hematology/oncology while here in the hospital. They recommended continuing her current medical regimen and following up outpatient. Notes For Next Care Provider Follow with oncology as scheduled Monitor CBC, consider outpatient transfusion if hemoglobin less than 7 Medication Changes From Visit No changes Admission HPI Per Admitting Provider Patient is 78-year-old female with PMH DM II, dyslipidemia, paroxysmal SVT, HTN, anxiety, GERD transferred back to [facility] from [facility]. Per chart review patient with hospitalization at [facility] 01/09/2024-01/14/2024 in which she presented for RLE cellulitis and was found to be pancytopenic and further workup with bone marrow biopsy was suggestive of acute leukemia and oncology had recommended transfer to [facility]. Patient discharged from [facility] today 01/30/2024. Per discharge summary she was diagnosed with acute myeloid leukemia. She had Stewart placed on 01/18/2024. Decitabine/Venetoclax given 01/24/24-01/30/24. Decitabine treatment is completed. She is to continue venetoclax 100mg daily Patient had neutropenic fever. Fever on 01/15/2024 with reported negative infectious workup with negative urine culture, blood cultures, CXR, RVP. Had repeat fever on 01/22/2024 with reported negative peripheral blood culture, central line culture, UA, urine culture, CXR, CT abdomen pelvis, RVP. Last fever was on 01/23/2024 Patient is currently on antimicrobial prophylaxis for neutropenia with acyclovir 400 mg twice daily, voriconazole 200mg BID, Levaquin 500mg Q24H. Patient has required PRBC and platelet transfusions. Today WBC: 0.9, Hgb: 7.7, Plt: 52 It is recommended PRBC transfusion if Hgb less than 7 and platelet transfusion of PLT less than 10. It is reported patient has been requiring 1-2 L oxygen via nasal cannula intermittently and has been requiring more overnight which was suspected secondary to volume overload from receiving IVF for TLS prevention. During hospitalization amlodipine started for hypertension. Her home citalopram and gabapentin was continued. Buspar was started. Home atorvastatin was switched to rosuvastatin due to interaction with posaconazole She has been on prophylactic Lovenox 40 mg SQ daily Upon direct admission this evening patient states feeling tired after all of the events of the past 2 weeks. She reports since treatment has been having bilateral lower extremity edema. She denies sensation of shortness of breath but it is reported she has been requiring 1.5 to 2 L oxygen via nasal cannula while at [facility]. Patient denies chest pain, palpitations. Denies recent fever. Reports since treatment has a metallic taste in her mouth and has decreased appetite and decreased oral intake. Denies nausea or vomiting, diarrhea, constipation, fever/chills over past couple of days, diaphoresis, BEAN, dizziness, vision changes, neck pain, CP, cough, sore throat, otalgia, rhinorrhea, abdominal pain, paresthesias, rashes, urinary symptoms. Primary oncologist Dr Curiel. Has follow up appointment on 03/05/24 at 3:20pm at [facility] [address] [place] [address] , [address], [id number] [place] [address] Admission Exam Per Admitting Provider See H&P Discharge Exam Constitutional: Alert HEENT: Mucous membranes moist. Lungs: Clear to auscultation, decreased, no wheezes rales or rhonchi CV: S1-S2, regular Abdomen: Soft, nontender, nondistended Extremities: No significant edema Neuro: No focal deficits, slightly weak Psych: Cooperative, normal mood Updated Medication List Medication Instructions Recorded Confirmed Type acetaminophen 500 mg tablet 1,000 mg PO Q6 PRN .FEVER/MILD 11/17/19 01/30/24 History PAIN 1-3 citalopram 10 mg tablet 10 mg PO QAM 01/09/24 01/30/24 History gabapentin 100 mg capsule 100 mg PO BID 01/09/24 01/30/24 History acyclovir 200 mg capsule 400 mg PO BID 01/30/24 01/30/24 History allopurinol 300 mg tablet 300 mg PO DAILY 01/30/24 01/30/24 History amlodipine 10 mg tablet 10 mg PO DAILY 01/30/24 01/30/24 History buspirone 5 mg tablet 5 mg PO DAILY 01/30/24 01/30/24 History enoxaparin 40 mg/0.4 mL 40 mg subcut .EVERY 24 HOURS 01/30/24 01/30/24 History subcutaneous syringe levofloxacin 750 mg tablet 750 mg PO .EVERY 24 HOURS 01/30/24 01/30/24 History loperamide 2 mg tablet 2 mg PO UD PRN Diarrhea 01/30/24 01/30/24 History melatonin 5 mg tablet 5 mg PO HS PRN Insomnia 01/30/24 01/30/24 History methyl salicylate 15 %-menthol 10 1 applic topical UD PRN Muscle Pain 01/30/24 01/30/24 History % topical cream ondansetron HCl 4 mg tablet 4 mg PO Q6H PRN Nausea And Vomiting 01/30/24 01/30/24 History ondansetron HCl 8 mg tablet 8 mg PO DAILY 01/30/24 01/30/24 History prochlorperazine edisylate 5 mg/mL 10 mg IV Q4H PRN Nausea And 01/30/24 01/30/24 History injection solution Vomiting rosuvastatin 5 mg tablet 5 mg PO DAILY 01/30/24 01/30/24 History venetoclax 100 mg tablet 100 mg PO DAILY 01/30/24 01/30/24 History (Venclexta) voriconazole 200 mg tablet 200 mg PO Q12 01/30/24 01/30/24 History Hospital Stay Data Consultations 01/31/24 01:56 Consult Oncology Routine Diagnostic Imagining Performed Reviewed imaging, laboratory and diagnostic studies. Pertinent findings as below. WBC 0.64 Hemoglobin 7.2 Platelets 33 Glucose 138 Pending Results Patient Have Any Pending Studies at Discharge: No Discharge Instructions Given to Patient (Per Discharging Provider) Follow-up with your oncologist as already scheduled Total Time Total Time Spent Total Time Spent (In Minutes): 31
== END 2024-02-02 16:45 | disposition home health service (06) | DRG 834 ==
LOC: SUATTDRO 18:39 → 3N 18:39

== ENCOUNTER 2024-09-24 23:34 | Inpatient (IN) ==
--- NOTE | 2024-09-24 23:51 | Emergency Department Note ---
History of Present Illness General Chief complaint: Back Injury/Pain Stated complaint: FALL Time Seen by Provider: 09/24/24 23:37 History of Present Illness Maximum Pain Intensity: 8 This is a 79-year-old female that presents to the emergency department via EMS with complaints of "back pain". The patient notes that she fell last month. She believes it was a trip and fall. She denies any significant strike to the ground but notes that she has had back pain since that time. She denies any other trauma or injury. Current pain 09/28. She denies any fevers, chills, nausea or vomiting. No lower extremity weakness, bowel or bladder incontinence, numbness or tingling in the genital region. Patient points to the low back area as the location of discomfort. It does not radiate down the legs. She does note trouble ambulating secondary to the back pain. Home Medications Medication Instructions Recorded Confirmed Type acetaminophen 500 mg tablet 1,000 mg PO Q6 PRN .FEVER/MILD 11/17/19 09/25/24 History PAIN 1-3 citalopram 10 mg tablet 10 mg PO QAM 01/09/24 09/25/24 History gabapentin 100 mg capsule 100 mg PO BID 01/09/24 09/25/24 History venetoclax 100 mg tablet 70 mg PO UD 01/30/24 09/25/24 History (Venclexta) voriconazole 200 mg tablet 200 mg PO Q12 01/30/24 09/25/24 History acyclovir 200 mg capsule 400 mg (2 x 200 mg) PO BID #60 caps 02/02/24 09/25/24 Rx ondansetron HCl 4 mg tablet 4 mg PO Q6H PRN Nausea And 02/02/24 09/25/24 Rx Vomiting #30 tabs amlodipine 10 mg tablet 5 mg PO QAM 08/26/24 09/25/24 History furosemide 20 mg tablet 10 mg PO Q OTHER DAY 08/26/24 09/25/24 History potassium chloride 10 mEq 10 meq PO Q OTHER DAY 08/26/24 09/25/24 History tablet,extended release atorvastatin 20 mg tablet 20 mg PO QAM 09/10/24 09/25/24 History decitabine 50 mg intravenous 0 mg IV MONTHLY 09/10/24 09/25/24 History solution tramadol 50 mg tablet 50 mg PO BID PRN pain #11 tabs 09/23/24 09/25/24 Rx levofloxacin 500 mg tablet 500 mg PO DAILY 09/25/24 09/25/24 History lorazepam 0.5 mg tablet 0.5 mg PO DIRECTED PRN Insomnia 09/25/24 09/25/24 History Allergies Allergy/AdvReac Type Severity Reaction Status Date / Time No Known Allergies Allergy Mild Verified 09/17/24 11:27 Past Med/Surg History Problem List (Updated 09/25/24 @ 02:04 by Derek Parra PA-C) Neutropenia (Acute) Compression fracture of lumbar vertebra (Acute) Back pain (Acute) Encounter for pre-operative examination Physical deconditioning Anxiety Diabetes mellitus, type II Dyslipidemia AML (acute myeloblastic leukemia) Pancytopenia (Acute) Biceps tendinitis of right shoulder Lumbar spondylosis 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, left Medical History Pericardial effusion History of - 02/2024- evaluated by [facility]- felt related to AML and/or chemo treatments- repeat ECHOs showed improvement (most recent ECHO 05/2024) Lumbar spondylosis Biceps tendinitis of right shoulder Anxiety HTN (hypertension) Diabetes mellitus type II, controlled no meds most recent Hgb A1C 12/2024 was 7.5 History of cellulitis 12/2023 per records Hx of acute respiratory failure (01/2024) had been at [place], transferred to [facility]- resolved AML (acute myeloblastic leukemia) (12/2023) [facility]- dr. oliver- gets chemo 1 week every month unless wbc is off, last chemo was week of august 31. has blood drawn weekly at [facility] SVT (supraventricular tachycardia) (2004) History of SVT- s/p 2004- no issues since. Sciatica Elevated cholesterol Controlled with statin Surgical History History of insertion of tunneled central venous catheter (CVC) with port (01/2024) right side armstrong cath placed in [place] History of left knee replacement (2019) History of bone marrow biopsy (07/17/24) x3- [place] and [facility] S/P epidural steroid injection sciatica History of appendectomy (1967) H/O cardiac radiofrequency ablation (2004) 2004 H/O: hysterectomy (1989) [facility] with BSO Family History Father Cancer Other Coronary heart disease Diabetes Leukemia No family history of adverse response to anesthesia Social History Smoking Status: Never smoker Second Hand Exposure: No; Do You Dip or Chew Tobacco: No; Hx Alcohol Use: Yes Alcohol type: wine Hx Substance Use: No Preferred Language: Romansh Communication Ability: Effective Visual Impairment: No Limitations Machine Cell Tuber Required: No Beliefs That Will Affect Care: None marital status: Current Living Situation: Family Current Living Situation Comment: Lives with daughter and grandson, 2 story home Other Information That Helps Us Care for You: No Feels Safe at Home: Yes Safety Concerns: Feels Safe At This Time Assistive Devices: Cane, Glasses and Walker Review of Systems A total of 10 systems reviewed and were otherwise negative Physical Exam Vital Signs Vital Signs - 24 hr 09/24/24 23:40 09/25/24 00:00 09/25/24 00:19 Temperature 36.7 C Temperature Source Oral Pulse Rate 89 67 Pulse Rate from SpO2 Sensor Respiratory Rate 16 Respiratory Effort / Characteristics Non-Labored Spontaneous Respiratory Depth Normal Blood Pressure 133/70 129/77 Blood Pressure Mean 91 99 Pulse Oximetry 100 Oxygen Delivery Method Room Air Sepsis Recent Fever Within 48 Hours No Sepsis New/Unexplained Change in Mental Status N/A Sepsis Action Taken by Nursing No Action Required 09/25/24 01:33 09/25/24 02:06 09/25/24 02:42 Temperature Temperature Source Pulse Rate 73 63 67 Pulse Rate from SpO2 Sensor 73 67 Respiratory Rate 26 H 16 22 Respiratory Effort / Characteristics Respiratory Depth Blood Pressure 126/66 Blood Pressure Mean 86 Pulse Oximetry 96 100 92 Oxygen Delivery Method Room Air Sepsis Recent Fever Within 48 Hours Sepsis New/Unexplained Change in Mental Status Sepsis Action Taken by Nursing 09/25/24 02:51 09/25/24 03:00 Temperature Temperature Source Pulse Rate 72 71 Pulse Rate from SpO2 Sensor 72 71 Respiratory Rate 22 19 Respiratory Effort / Characteristics Respiratory Depth Blood Pressure 132/65 Blood Pressure Mean 87 Pulse Oximetry 91 93 Oxygen Delivery Method Sepsis Recent Fever Within 48 Hours Sepsis New/Unexplained Change in Mental Status Sepsis Action Taken by Nursing VITAL SIGNS - Vital signs and nursing notes were reviewed. Stable and afebrile. GENERAL -79-year-old female appearing her stated age who is in no acute distress. Communicates well with provider and answers questions appropriately. SKIN -there is erythema overlying the lumbar area, inferior aspect more on the right as it joins the pelvis posteriorly. (Patient notes she was using a heating pad). no vesicular component. HEAD - NC/AT. NECK - No nuchal rigidity. LUNGS - CTA CARDIAC - RRR ABDOMEN - Abdominal contour normal without pulsations or visible masses. BS normoactive all four quadrants. No tenderness, palpable masses, hepatosplenomegaly, or ascites noted. MSKthere is no reproducible tenderness overlying the C, T or L-spine paraspinous processes. EXTREMITIES - No clubbing or peripheral cyanosis. +5/5 strength noted in UE/LE bilaterally. NEUROLOGIC - Cranial nerves II through XII grossly intact. PSYCH -alert, oriented and pleasant on exam. Course Administered Medications Acetaminophen (Acetaminophen 325 Mg Tab) 650 mg PO QID PRN PRN Reason: pain/fever Stop: 10/25/24 02:25 Last Admin: 09/25/24 12:03 Dose: 650 mg Documented By: HRB Acyclovir (Acyclovir 200 Mg Cap) 400 mg PO BID [facility] Stop: 10/25/24 08:59 Last Admin: 09/25/24 09:09 Dose: 400 mg Documented By: HRB Amlodipine Besylate (Amlodipine Besylate 5 Mg Tab) 5 mg PO QAM [facility] Stop: 10/25/24 08:59 Last Admin: 09/25/24 09:09 Dose: 5 mg Documented By: HRB Atorvastatin Calcium (Atorvastatin 20 Mg Tab) 20 mg PO QAM [facility] Stop: 10/25/24 08:59 Last Admin: 09/25/24 09:09 Dose: 20 mg Documented By: HRB Citalopram Hydrobromide (Citalopram 20 Mg Tab) 10 mg PO QAM [facility] Stop: 10/25/24 08:59 Last Admin: 09/25/24 09:09 Dose: 10 mg Documented By: HRB Gabapentin (Gabapentin 100 Mg Cap) 100 mg PO BID [facility] Stop: 10/25/24 08:59 Last Admin: 09/25/24 09:10 Dose: 100 mg Documented By: HRB Heparin Sodium (Beef Lung) (Heparin 10 Unit/Ml 5 Ml Flush) 5 ml FLUSH PRN PRN PRN Reason: Flush Stop: 10/25/24 14:23 Last Admin: 09/25/24 14:44 Dose: 5 ml Documented By: HRCharo Insulin Aspart (Insulin Aspart Per Unit Charge) 0 units SC ACHS [place] Stop: 10/25/24 05:05 Last Admin: 09/25/24 12:57 Dose: Not Given Documented By: HRCharo Co-signed By: SEBASTIAN Admin: 09/25/24 05:54 Dose: Not Given Documented By: JOCELYN Insulin Glargine (Lantus Per Unit Charge) 5 units SQ DAILY [place] Stop: 10/25/24 08:59 Last Admin: 09/25/24 09:23 Dose: 5 units Documented By: HRB Co-signed By: SEBASTIAN Levofloxacin (Levofloxacin 500 Mg Tab) 500 mg PO DAILY [facility]; Protocol Stop: 10/25/24 08:59 Last Admin: 09/25/24 09:10 Dose: 500 mg Documented By: MARCUS Oxycodone HCl (Oxycodone Hcl Ir 5 Mg Tab (Immediate Release)) 5 mg PO Q4H PRN PRN Reason: Pain Stop: 10/09/24 03:29 Last Admin: 09/25/24 08:48 Dose: 5 mg Documented By: MARCUS Polyethylene Glycol (Polyethylene (Miralax) 17 Gm Pack) 17 gm PO DAILY [place] Stop: 10/25/24 08:59 Last Admin: 09/25/24 09:10 Dose: Not Given Documented By: MARCUS Voriconazole (Voriconazole 200 Mg Tablet) 200 mg PO Q12 [place] Stop: 10/25/24 08:59 Last Admin: 09/25/24 09:10 Dose: 200 mg Documented By: MARCUS Discontinued Medications Sodium Chloride (Nss) 500 mls @ 60 mls/hr IV .Q8H20M ONE Stop: 09/25/24 10:14 Last Infusion: 09/25/24 11:56 Dose: Infused Documented By: Admin: 09/25/24 03:27 Dose: 60 mls/hr Documented By: CHERYL Lidocaine (Lidocaine 5% 1 Patch) 1 patch TD ONE STA Stop: 09/25/24 03:17 Last Admin: 09/25/24 09:23 Dose: 1 patch Documented By: MARCUS Oxycodone HCl (Oxycodone Hcl Ir 5 Mg Tab (Immediate Release)) 2.5 mg PO NOW STA Stop: 09/25/24 01:55 Last Admin: 09/25/24 02:19 Dose: 2.5 mg Documented By: HECTOR Polyethylene Glycol (Polyethylene (Miralax) 17 Gm Pack) 17 gm PO NOW STA Stop: 09/25/24 05:41 Last Admin: 09/25/24 05:53 Dose: 17 gm Documented By: JOCELYN Potassium Chloride (Potassium Chloride Crtab 20 Meq Tabcr) 20 meq PO NOW STA Stop: 09/25/24 01:55 Last Admin: 09/25/24 02:19 Dose: 20 meq Documented By: HECTOR Potassium Chloride (Potassium Chloride Crtab 20 Meq Tabcr) 20 meq PO NOW STA Stop: 09/25/24 02:06 Last Admin: 09/25/24 02:22 Dose: Not Given Documented By: HECTOR Senna/Docusate Sodium (Docusate Sodium/Senna 50/8.6mg Tab) 1 tab PO QAM [place] Stop: 10/25/24 03:29 Last Admin: 09/25/24 05:51 Dose: 1 tab Documented By: JOCELYN Medical Decision Making Laboratory Data 09/25/24 08:09 09/25/24 00:50 Lab Results 09/25/24 Range/Units 00:50 WBC 0.72 L* (4.8-10.8) K/ul RBC 2.71 L (4.20-5.40) M/uL Hgb 8.7 L (12.0-16.0) g/dl Hct 26.4 L (37.0-47.0) % MCV 97.4 (80.0-100.0) fL MCH 32.1 (25.0-34.0) pg MCHC 33.0 (32.0-36.0) g/dL RDW Std Deviation 51.9 H (36.4-46.3) fL RDW Coeff of Patti 14.8 H (11.5-14.5) % Plt Count 110 L (130-400) K/uL MPV 9.6 (9.4-12.4) fL Immature Gran % (Auto) 0.0 % Neut % (Auto) 23.6 % Lymph % (Auto) 72.2 % [place]bon % (Auto) 2.8 % Eos % (Auto) 0.0 % Baso % (Auto) 1.4 % Neut # (Auto) 0.17 L* (1.40-6.50) K/uL Lymph # (Auto) 0.52 L (1.20-3.40) K/uL [place] # (Auto) 0.02 L (0.11-0.59) K/uL Eos # (Auto) 0.00 (0.00-0.50) K/uL Baso # (Auto) 0.01 (0.00-0.20) K/uL Immature Gran # (Auto) 0.00 L (0.01-0.20) K/uL Sodium 136 (136-145) mmol/L Potassium 3.1 L (3.5-5.1) mmol/L Chloride 100 (98-107) mmol/L Carbon Dioxide 28 (21-32) mmol/L Anion Gap 8 (3-11) BUN 15 (6-23) mg/dl Creatinine 0.49 L (0.6-1.2) mg/dl Est Cr Clr Drug Dosing Not Reportable eGFR 97.01 BUN/Creatinine Ratio 30.6 H (10-20) Glucose 153 H (70-99(Fasting)) mg/dl Calcium 8.5 L (8.6-10.3) mg/dl Magnesium 2.0 (1.7-2.4) mg/dl Total Bilirubin 0.3 (0.2-1.0) mg/dl AST 15 (13-39) U/L ALT 8 (7-52) U/L Alkaline Phosphatase 96 (34-104) U/L Total Protein 6.5 (6.0-8.3) gm/dl Albumin 3.2 L (3.4-5.0) gm/dl Globulin 3.3 (2.5-4.0) gm/dl Albumin/Globulin Ratio 1.0 (0.9-2) Imaging Data Radiologist's Impression: Lumbar Spine CT 09/24/24 23:49 EXAM: CT lumbar spine wo con CLINICAL HISTORY: low back pain s/p fall last month TECHNIQUE: CT non-contrast scan of lumbar spine done. Axial images obtained with reformatted coronal and sagittal images and submitted for interpretation. One of the following dose reduction techniques were utilized for this exam: Automated exposure control, adjustment of the mA and/or kV according to patient size, use of iterative reconstruction. DLP: 1256.37 mGy.cm COMPARISON: No previous study for comparison. FINDINGS: Vertebrae: Defuse reduced bone density. Spondylodegenerative changes of the lumbar spine with marginal osteophytes formation and vertebral end plate degenerative changes. Mild scoliosis with convexity to the left. Reduced height of L3 and L1 vertebral body with sclerosis of the lower vertebral end plates denoting chronicity. Forward displacement of L4 over L5 vertebra. No fractures, lytic or sclerotic lesions. Intervertebral Discs: Degenerated T11-T12, T12-L1, L4-L5 and L5-I5ifnoa in the form of reduced height. L1-L2, L2-L3: shows diffuse disc bulge indenting the thecal sac with mild encroachment upon both exit neural pathways and mild bilateral neural foraminal narrowing more on the left side. L3-L4 disc: shows diffuse disc bulge indenting the thecal sac with moderate encroachment upon both exit neural pathways and marked bilateral neural foraminal narrowing. L4-L5 disc: disc-osteophyte complex with diffuse disc bulge compressing the thecal sac. There is mild spinal canal narrowing with bilateral neural foraminal narrowing. Facet Joints: Osteoarthritic changes of the scanned facet joints more pronounced at L4-L5 and L5-S1 levels. Soft Tissues: Normal appearance of the paraspinal soft tissues. No abnormal masses, fluid collections, or signs of inflammation. Large hyperdense right renal stone measures about 2.5 cm in diameter, seen in the right renal pelvis. IMPRESSION: 1. Degenerative changes of the lumbar spine with multilevel disc disease as described. 2. Mild lumbar scoliosis with convexity to the left. 3. Mild spondylolisthesis of L4 over L5 vertebra. 4. Reduced height of L3 and L1 vertebral body with sclerosis of the lower vertebral end plates denoting chronicity, however, MRI is advised for better age assessment. 5. Osteoarthritic changes of the scanned facet joints more pronounced at L4-L5 and L5-S1 levels. 6. Osteopenia. 7. Large hyperdense right renal stone. Electronically signed by Ketan Rosenberg 09-25-2024 03:18 AM Chest X-Ray 09/25/24 02:04 EXAM: XR chest 1V portable CLINICAL HISTORY: tachypnea TECHNIQUE: An X-ray image of the chest is obtained in AP projection. COMPARISON: No prior studies are available for comparison. FINDINGS: An inserted portacath at the left side of the chest wall with the tip located in the SVC. Pulmonary Parenchyma: Lungs are clear bilaterally. No evidence of consolidation, collapse, or focal opacities. No pulmonary nodules are identified. No evidence of pleural effusion or pleural thickening. Heart and Mediastinum: Heart size and shape are normal. No mediastinal widening or masses. No hilar or mediastinal lymphadenopathy. Bony Thorax: Bony thorax appears intact without fractures or deformities. Soft Tissues: Soft tissues overlying the chest wall are unremarkable. IMPRESSION: 1. An inserted portacath at the left side of the chest wall with the tip located in the SVC. 2. No acute cardiopulmonary abnormalities are identified. Electronically signed by Ketan Rosenberg 09-25-2024 03:33 AM MDM Narrative Patient was seen and evaluated as above in room B11b. Review was performed of nursing notes and vital signs. I did review pertinent previous visits and patient history. After obtaining a thorough history and physical examination the above work up was performed. Patient was seen here yesterday for same symptoms. She notes symptoms worsened today. She had L-spine x-rays performed yesterday which revealed inferior endplate compression fracture of L3 and a compression deformity of L1 new since February and likely acute/subacute. Pain is better with rest and increases with movement. I discussed options with the patient. Offered analgesia here and she respectfully declined at least initially. The patient is concerned about going home noting her worsening symptoms, worsening pain and trouble with ambulation. Patient ultimately desires to stay in the hospital, which I believe is reasonable. To further evaluate and characterize the lumbar issues I will proceed with CT imaging of the L-spine and pelvis. These were ordered. Results as above. There is leukopenia 0.72, similar to just a few days ago. Anemia with hemoglobin 8.7. Thrombocytopenia 110. Neutropenia 0.17. Hypokalemia 3.1. Clinically dry with BUN/creatinine ratio 30.6. Hypocalcemia 8.5. Hyperglycemia 153. She does not have any infectious symptoms. I do believe that further evaluation and management in the inpatient setting is warranted noting the patient's uncontrolled pain and x-ray findings yesterday with further characterization by CT today. She has no neurovascular deficits. Initially she declined pain medication but did agree later in the stay. Oral oxycodone was ordered. I also ordered oral potassium for repletion and IV fluids to rehydrate. It was felt that the benefit of the medication outweighed risk. Case discussed with the hospitalist service. Please refer to further documentation regarding her stay. In the evaluation and treatment of this patient the following differential diagnosis entertained: Fracture, dislocation, subluxation, cauda equina syndrome, AAA, diverticulitis, appendicitis, torsion, osteomyelitis, piriformis syndrome, strain, sprain, among others. Impression & Plan Compression fracture of lumbar vertebra, Back pain, Neutropenia Discharge Plan Visit Data Chief Complaint: Back Injury/Pain Stated Complaint: FALL ED Provider: Kimberlyn Verde ED Midlevel Provider: Derek Parra Discharge Problem: Compression fracture of lumbar vertebra, Back pain, Neutropenia Patient Disposition: Admitted As Inpatient Condition: Fair Discharge Instructions Interventions: ED Discharge Assessment Last Done: 09/25/24 04:39
[2024-09-25 01:29] LABS: Alanine Aminotransferase 8 U/L (7-52); Albumin Globulin Ratio 1.0 (0.9-2); Alkaline Phosphatase 96 U/L (34-104); Anion Gap 8 (3-11); Bilirubin,Total 0.3 mg/dl (0.2-1.0); Blood Urea Nitrogen 15 mg/dl (6-23); Calcium 8.5 mg/dl (8.6-10.3); Carbon Dioxide 28 mmol/L (21-32); Chloride 100 mmol/L (98-107); Globulin 3.3 gm/dl (2.5-4.0); Glucose 153 mg/dl (70-99(Fasting)); Potassium 3.1 mmol/L (3.5-5.1); Sodium 136 mmol/L (136-145); Total Protein 6.5 gm/dl (6.0-8.3)
[2024-09-25 01:35] LABS: Hematocrit (blood only) 26.4 % (37.0-47.0); Hemoglobin 8.7 g/dl (12.0-16.0); Immature Granulocytes # (auto) 0.00 K/uL (0.01-0.20); Immature Granulocytes % (auto) 0.0 %; Mean Corpuscular Hemoglobin 32.1 pg (25.0-34.0); Mean Corpuscular Volume 97.4 fL (80.0-100.0); Platelet Count 110 K/uL (130-400); RDW Standard Deviation 51.9 fL (36.4-46.3); Red Blood Count 2.71 M/uL (4.20-5.40); White Blood Count 0.72 K/ul (4.8-10.8)
--- NOTE | 2024-09-25 02:00 | Emergency Department Note ---
ED Visit Note I was consulted by the Advanced Practice Provider. I personally made/approved the management plan and take responsibility for the patient management. I performed a substantive portion of the visit. This includes the aspects of: -History/Physical -MDM -Patient had a previous trip, fall. Progressive back pain, low back. Had a compression fracture diagnosed yesterday. Pain not controlled, patient returns today. - Significant leukopenia and low ANC. - Patient admitted to hospitalist service for pain control .
[2024-09-25] MEDS: POTASSIUM CHLORIDE CRTAB 20 MEQ TABCR PO STA ×2 (02:19→02:22)
[2024-09-25 02:39] LABS: Magnesium 2.0 mg/dl (1.7-2.4)
--- NOTE | 2024-09-25 02:47 | CT Scan Report ---
EXAM: CT pelvis wo con CLINICAL HISTORY: low back pain s/p fall last month TECHNIQUE: CT scan of the female pelvis was performed without the administration of intravenous contrast. Contiguous axial images were obtained from the iliac crests to the pubic symphysis. Coronal and sagittal reformatted images were also reviewed. One of the following dose reduction techniques was utilized for this exam. Automated exposure control, adjustment of the mA and/or kV according to patient size, and use of iterative reconstruction. COMPARISON: No previous studies are available for comparison. FINDINGS: Bones: Osteoarthritic changes of both sacroiliac joints in the form of mild subcortical sclerosis and narrwoing of joint space. Mild osteoarthritic changes of both hip joints with mild joint space narrowing. Bilateral facet joint arthropathy at L4-5 and L5-S1 disc level. Spondylolisthesis of L4 over L5 vertebral body. Small foci of sclerosis seen in both iliac crests and right pubic bone with no suspecious features, mostly benign (bone island). Osteophytes noted at both greater and ischial tubreosity Pelvic tilt is noted. Evidence of osteitis pubis. Normal alignment of the femoral heads, necks, and acetabula. No fractures, lytic, or sclerotic lesions. No evidence of avascular necrosis of the femoral heads. Uterus: non visualized uterus to be correlated with patient history of surgery. Adnexa: No adnexal masses or cysts identified. Bladder: The urinary bladder is adequately distended and appears normal. Rectum and Colon: Colonic fecal loading The rectum and colon are within normal limits without evidence of wall thickening . Pelvic Soft Tissues: The pelvic soft tissues are unremarkable without evidence of mass or abnormal fluid collection. Small umblical hernia measure about 20 x 5 mm cantaining fat. Additional Findings: No free fluid or lymphadenopathy was identified in the pelvis. IMPRESSION: 1. Pelvic tilt is noted, with no evidence of bone fracture. 2. Osteoarthritic changes of both sacroiliac joints 3. Mild osteoarthritic changes of both hip joints 4. Evidence of osteitis pubis. 5. Spondylolisthesis of L4 over L5 vertebral body. 6. Bilateral facet joint arthropathy at L4-5 and L5-S1 disc level. 7. Colonic fecal loading Electronically signed by Ketan Rosenberg 09-25-2024 02:47 AM
--- NOTE | 2024-09-25 03:09 | History & Physical Report ---
Date of Service September 25, 2024 Assessment & Plan (1) Compression fracture of lumbar vertebra: Plan: Assessment and plan below following discussion of case with ED provider and reviewing patient history/pertinent normal/abnormal diagnostic test results. Traumatic lumbar compression fracture history sacroiliitis/LSS as per records, Pathology not clearly delineated on lumbar spine CT Constipation secondary to pain, tramadol Rx contributory hypertension, stable hyperlipidemia, on statin Rx PSVT status post ablation AML ongoing chemotherapy on anti-infective prophylaxis chronic pancytopenia secondary to chemotherapy, progressive neutropenia and anemia on today's blood work, no overt bleed DM2 on oral medications, suboptimal control as of recent hemoglobin A1c of 7.25 December 2023 Admit to [facility] Analgesia Lumbar spine MRI Orthopedic spine consult re: lumbar compression fracture (Patient family already in touch with Dr. Bergman.) Bowel regimen Basal bolus insulin, ISS BG goal 1 10-1 40, carb count coverage, update hemoglobin A1c DVT prophylaxis. SCDs re: thrombocytopenia Full code Patient daughter requests for updates regarding care. Ms. Chastity Pathak, contact number # [phone]. Text document was generated using c[employer]idya voice recognition software. It may contain grammatical or spelling errors. Kindly contact undersigned for clarification of any documentation item in question. History of Present Illness Chief Complaint: Worsening low back pain Primary Care Provider: Vidal Card MD History obtained from patient, family, and records. Medical history significant for hypertension, hyperlipidemia, PSVT status post ablation, AML ongoing chemotherapy on anti-infective prophylaxis, history sacroiliitis/LSS as per records, chronic pancytopenia (baseline hemoglobin 10), anxiety disorder. Last month, patient noted back pain after tripping and falling at home. No consultations done. No fever, no chills. No leg radiation. No bowel/bladder incontinence. Back pain worse on moving around. Patient noted worsening of discomfort after outpatient a port placement last week. Patient consulted ER for evaluation 2 days ago. Plain LSXR showed new inferior endplate compression fracture L3 and a compression deformity L1 (acute to subacute). Patient discharged on tramadol course and outpatient Orthopedics spine referral. Patient returned to ER because of uncontrolled achy low back pain. Last BM was 2 days ago which is unusual for her No abdominal pain, no nausea, no vomiting. 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 Allergies Allergy/AdvReac Type Severity Reaction Status Date / Time No Known Allergies Allergy Mild Verified 09/17/24 11:27 Home Medications Medication Instructions Recorded Confirmed Type acetaminophen 500 mg tablet 1,000 mg PO Q6 PRN .FEVER/MILD 11/17/19 09/25/24 History PAIN 1-3 citalopram 10 mg tablet 10 mg PO QAM 01/09/24 09/25/24 History gabapentin 100 mg capsule 100 mg PO BID 01/09/24 09/25/24 History venetoclax 100 mg tablet 70 mg PO UD 01/30/24 09/25/24 History (Venclexta) voriconazole 200 mg tablet 200 mg PO Q12 01/30/24 09/25/24 History acyclovir 200 mg capsule 400 mg (2 x 200 mg) PO BID #60 caps 02/02/24 09/25/24 Rx ondansetron HCl 4 mg tablet 4 mg PO Q6H PRN Nausea And 02/02/24 09/25/24 Rx Vomiting #30 tabs amlodipine 10 mg tablet 5 mg PO QAM 08/26/24 09/25/24 History furosemide 20 mg tablet 10 mg PO Q OTHER DAY 08/26/24 09/25/24 History potassium chloride 10 mEq 10 meq PO Q OTHER DAY 08/26/24 09/25/24 History tablet,extended release atorvastatin 20 mg tablet 20 mg PO QAM 09/10/24 09/25/24 History decitabine 50 mg intravenous 0 mg IV MONTHLY 09/10/24 09/25/24 History solution tramadol 50 mg tablet 50 mg PO BID PRN pain #11 tabs 09/23/24 09/25/24 Rx levofloxacin 500 mg tablet 500 mg PO DAILY 09/25/24 09/25/24 History lorazepam 0.5 mg tablet 0.5 mg PO DIRECTED PRN Insomnia 09/25/24 09/25/24 History Past Med/Surg History Problem List (Updated 09/25/24 @ 02:04 by Derek Parra PA-C) Neutropenia (Acute) Compression fracture of lumbar vertebra (Acute) Back pain (Acute) Encounter for pre-operative examination Physical deconditioning Anxiety Diabetes mellitus, type II Dyslipidemia AML (acute myeloblastic leukemia) Pancytopenia (Acute) Biceps tendinitis of right shoulder Lumbar spondylosis 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, left Medical History Pericardial effusion History of - 02/2024- evaluated by [facility]- felt related to AML and/or chemo treatments- repeat ECHOs showed improvement (most recent ECHO 05/2024) Lumbar spondylosis Biceps tendinitis of right shoulder Anxiety HTN (hypertension) Diabetes mellitus type II, controlled no meds most recent Hgb A1C 12/2024 was 7.5 History of cellulitis 12/2023 per records Hx of acute respiratory failure (01/2024) had been at [facility], transferred to [facility]- resolved AML (acute myeloblastic leukemia) (12/2023) [facility]- dr. oliver- gets chemo 1 week every month unless wbc is off, last chemo was week august 31. has blood drawn weekly at [facility] SVT (supraventricular tachycardia) (2004) History of SVT- s/p 2004- no issues since. Sciatica Elevated cholesterol Controlled with statin Surgical History History of insertion of tunneled central venous catheter (CVC) with port (01/2024) right side armstrong cath placed in [facility] History of left knee replacement (2019) History of bone marrow biopsy (07/17/24) x3- [facility] and [facility] S/P epidural steroid injection sciatica History of appendectomy (1967) H/O cardiac radiofrequency ablation (2004) 2004 H/O: hysterectomy (1989) MONICA with BSO Family History Father Cancer Other Coronary heart disease Diabetes Leukemia No family history of adverse response to anesthesia Social History Smoking Status: Never smoker Second Hand Exposure: No; Do You Dip or Chew Tobacco: No; Hx Alcohol Use: Yes Alcohol type: wine Hx Substance Use: No Preferred Language: Bel[place]an Communication Ability: Effective Visual Impairment: No Limitations Workers' Compensation Claims Examiner Required: No Beliefs That Will Affect Care: None marital status: Current Living Situation: Family Current Living Situation Comment: daughter Feels Safe at Home: Yes Assistive Devices: Glasses Review of Systems Review of Systems: As per HPI, all other systems reviewed and negative Physical Exam Physical Exam: GENERAL: Comfortable, pleasant, no respiratory distress SKIN: Pallor, warm HEENT: Pale palpebral conjunctivae, no ptosis, dry buccal mucosa NECK : Supple, no tenderness CHEST : CTA, no tenderness HEART : RRR, no obvious murmurs ABDOMEN: Some distention, nontender BACK : Low back tenderness, limited SLR EXTREMITIES : No LE swelling/tenderness, palpable pulses, no other conspicuous deformities noted NEUROLOGIC : Coherent, no facial asymmetry, no other gross focality Results & Data Results & Data Vital Signs (Past 12 Hours) Vital Signs Temp Pulse Resp BP Pulse Ox O2 Del Method 09/25/24 02:06 63 16 100 Room Air 09/25/24 01:33 73 26 H 126/66 96 09/25/24 00:19 67 09/25/24 00:00 129/77 09/24/24 23:40 36.7 C 89 16 133/70 100 Room Air Laboratory Results Laboratory Results WBC 0.72 K/ul (4.8-10.8) L* 09/25/24 00:50 RBC 2.71 M/uL (4.20-5.40) L 09/25/24 00:50 Hgb 8.7 g/dl (12.0-16.0) L 09/25/24 00:50 Hct 26.4 % (37.0-47.0) L 09/25/24 00:50 MCV 97.4 fL (80.0-100.0) 09/25/24 00:50 MCH 32.1 pg (25.0-34.0) 09/25/24 00:50 MCHC 33.0 g/dL (32.0-36.0) 09/25/24 00:50 RDW Std Deviation 51.9 fL (36.4-46.3) H 09/25/24 00:50 RDW Coeff of Patti 14.8 % (11.5-14.5) H 09/25/24 00:50 Plt Count 110 K/uL (130-400) L 09/25/24 00:50 MPV 9.6 fL (9.4-12.4) 09/25/24 00:50 Immature Gran % (Auto) 0.0 % 09/25/24 00:50 Neut % (Auto) 23.6 % 09/25/24 00:50 Lymph % (Auto) 72.2 % 09/25/24 00:50 [place] % (Auto) 2.8 % 09/25/24 00:50 Eos % (Auto) 0.0 % 09/25/24 00:50 Baso % (Auto) 1.4 % 09/25/24 00:50 Neut # (Auto) 0.17 K/uL (1.40-6.50) L* 09/25/24 00:50 Lymph # (Auto) 0.52 K/uL (1.20-3.40) L 09/25/24 00:50 [place] # (Auto) 0.02 K/uL (0.11-0.59) L 09/25/24 00:50 Eos # (Auto) 0.00 K/uL (0.00-0.50) 09/25/24 00:50 Baso # (Auto) 0.01 K/uL (0.00-0.20) 09/25/24 00:50 Immature Gran # (Auto) 0.00 K/uL (0.01-0.20) L 09/25/24 00:50 Sodium 136 mmol/L (136-145) 09/25/24 00:50 Potassium 3.1 mmol/L (3.5-5.1) L 09/25/24 00:50 Chloride 100 mmol/L (98-107) 09/25/24 00:50 Carbon Dioxide 28 mmol/L (21-32) 09/25/24 00:50 Anion Gap 8 (3-11) 09/25/24 00:50 BUN 15 mg/dl (6-23) 09/25/24 00:50 Creatinine 0.49 mg/dl (0.6-1.2) L 09/25/24 00:50 Est Cr Clr Drug Dosing Not Reportable 09/25/24 00:50 eGFR 97.01 09/25/24 00:50 BUN/Creatinine Ratio 30.6 (10-20) H 09/25/24 00:50 Glucose 153 mg/dl (70-99(Fasting)) H 09/25/24 00:50 Calcium 8.5 mg/dl (8.6-10.3) L 09/25/24 00:50 Magnesium 2.0 mg/dl (1.7-2.4) 09/25/24 00:50 Total Bilirubin 0.3 mg/dl (0.2-1.0) 09/25/24 00:50 AST 15 U/L (13-39) 09/25/24 00:50 ALT 8 U/L (7-52) 09/25/24 00:50 Alkaline Phosphatase 96 U/L (34-104) 09/25/24 00:50 Total Protein 6.5 gm/dl (6.0-8.3) 09/25/24 00:50 Albumin 3.2 gm/dl (3.4-5.0) L 09/25/24 00:50 Globulin 3.3 gm/dl (2.5-4.0) 09/25/24 00:50 Albumin/Globulin Ratio 1.0 (0.9-2) 09/25/24 00:[address] 09/24/24 23:49 EXAM: CT pelvis wo con CLINICAL HISTORY: low back pain s/p fall last month TECHNIQUE: CT scan of the female pelvis was performed without the administration of intravenous contrast. Contiguous axial images were obtained from the iliac crests to the pubic symphysis. Coronal and sagittal reformatted images were also reviewed. One of the following dose reduction techniques was utilized for this exam. Automated exposure control, adjustment of the mA and/or kV according to patient size, and use of iterative reconstruction. COMPARISON: No previous studies are available for comparison. FINDINGS: Bones: Osteoarthritic changes of both sacroiliac joints in the form of mild subcortical sclerosis and narrwoing of joint space. Mild osteoarthritic changes of both hip joints with mild joint space narrowing. Bilateral facet joint arthropathy at L4-5 and L5-S1 disc level. Spondylolisthesis of L4 over L5 vertebral body. Small foci of sclerosis seen in both iliac crests and right pubic bone with no suspecious features, mostly benign (bone island). Osteophytes noted at both greater and ischial tubreosity Pelvic tilt is noted. Evidence of osteitis pubis. Normal alignment of the femoral heads, necks, and acetabula. No fractures, lytic, or sclerotic lesions. No evidence of avascular necrosis of the femoral heads. Uterus: non visualized uterus to be correlated with patient history of surgery. Adnexa: No adnexal masses or cysts identified. Bladder: The urinary bladder is adequately distended and appears normal. Rectum and Colon: Colonic fecal loading The rectum and colon are within normal limits without evidence of wall thickening . Pelvic Soft Tissues: The pelvic soft tissues are unremarkable without evidence of mass or abnormal fluid collection. Small umblical hernia measure about 20 x 5 mm cantaining fat. Additional Findings: No free fluid or lymphadenopathy was identified in the pelvis. IMPRESSION: 1. Pelvic tilt is noted, with no evidence of bone fracture. 2. Osteoarthritic changes of both sacroiliac joints 3. Mild osteoarthritic changes of both hip joints 4. Evidence of osteitis pubis. 5. Spondylolisthesis of L4 over L5 vertebral body. 6. Bilateral facet joint arthropathy at L4-5 and L5-S1 disc level. 7. Colonic fecal loading Electronically signed by Ketan Rosenberg 09-25-2024 02:[address]: 1. Degenerative changes of the lumbar spine with multilevel disc disease as described. 2. Mild lumbar scoliosis with convexity to the left. 3. Mild spondylolisthesis of L4 over L5 vertebra. 4. Reduced height of L3 and L1 vertebral body with sclerosis of the lower vertebral end plates denoting chronicity, however, MRI is advised for better age assessment. 5. Osteoarthritic changes of the scanned facet joints more pronounced at L4-L5 and L5-S1 levels. 6. Osteopenia. 7. Large hyperdense right renal stone.
[2024-09-25] MEDS ORDERED: LORazepam 0.5 MG TAB PO PRN (03:12)
[2024-09-25] MEDS ORDERED: PROMETHAZINE 6.25 MG/50.25 ML BAG IV PRN (03:14)
--- NOTE | 2024-09-25 03:18 | CT Scan Report ---
EXAM: CT lumbar spine wo con CLINICAL HISTORY: low back pain s/p fall last month TECHNIQUE: CT non-contrast scan of lumbar spine done. Axial images obtained with reformatted coronal and sagittal images and submitted for interpretation. One of the following dose reduction techniques were utilized for this exam: Automated exposure control, adjustment of the mA and/or kV according to patient size, use of iterative reconstruction. DLP: 1256.37 mGy.cm COMPARISON: No previous study for comparison. FINDINGS: Vertebrae: Defuse reduced bone density. Spondylodegenerative changes of the lumbar spine with marginal osteophytes formation and vertebral end plate degenerative changes. Mild scoliosis with convexity to the left. Reduced height of L3 and L1 vertebral body with sclerosis of the lower vertebral end plates denoting chronicity. Forward displacement of L4 over L5 vertebra. No fractures, lytic or sclerotic lesions. Intervertebral Discs: Degenerated T11-T12, T12-L1, L4-L5 and L5-K1cqsrb in the form of reduced height. L1-L2, L2-L3: shows diffuse disc bulge indenting the thecal sac with mild encroachment upon both exit neural pathways and mild bilateral neural foraminal narrowing more on the left side. L3-L4 disc: shows diffuse disc bulge indenting the thecal sac with moderate encroachment upon both exit neural pathways and marked bilateral neural foraminal narrowing. L4-L5 disc: disc-osteophyte complex with diffuse disc bulge compressing the thecal sac. There is mild spinal canal narrowing with bilateral neural foraminal narrowing. Facet Joints: Osteoarthritic changes of the scanned facet joints more pronounced at L4-L5 and L5-S1 levels. Soft Tissues: Normal appearance of the paraspinal soft tissues. No abnormal masses, fluid collections, or signs of inflammation. Large hyperdense right renal stone measures about 2.5 cm in diameter, seen in the right renal pelvis. IMPRESSION: 1. Degenerative changes of the lumbar spine with multilevel disc disease as described. 2. Mild lumbar scoliosis with convexity to the left. 3. Mild spondylolisthesis of L4 over L5 vertebra. 4. Reduced height of L3 and L1 vertebral body with sclerosis of the lower vertebral end plates denoting chronicity, however, MRI is advised for better age assessment. 5. Osteoarthritic changes of the scanned facet joints more pronounced at L4-L5 and L5-S1 levels. 6. Osteopenia. 7. Large hyperdense right renal stone. Electronically signed by Ketan Rosenberg 09-25-2024 03:18 AM
[2024-09-25] MEDS ORDERED: POLYETHYLENE (MIRALAX) 17 GM PACK PO PRN (03:27)
[2024-09-25] MEDS: SODIUM CHLORIDE 0.9% 500 ML IV ONE (03:27)
--- NOTE | 2024-09-25 03:34 | XRay Report ---
EXAM: XR chest 1V portable CLINICAL HISTORY: tachypnea TECHNIQUE: An X-ray image of the chest is obtained in AP projection. COMPARISON: No prior studies are available for comparison. FINDINGS: An inserted portacath at the left side of the chest wall with the tip located in the SVC. Pulmonary Parenchyma: Lungs are clear bilaterally. No evidence of consolidation, collapse, or focal opacities. No pulmonary nodules are identified. No evidence of pleural effusion or pleural thickening. Heart and Mediastinum: Heart size and shape are normal. No mediastinal widening or masses. No hilar or mediastinal lymphadenopathy. Bony Thorax: Bony thorax appears intact without fractures or deformities. Soft Tissues: Soft tissues overlying the chest wall are unremarkable. IMPRESSION: 1. An inserted portacath at the left side of the chest wall with the tip located in the SVC. 2. No acute cardiopulmonary abnormalities are identified. Electronically signed by Ketan Rosenberg 09-25-2024 03:33 AM
[2024-09-25] MEDS ORDERED: GLUCAGON FOR INJ 1 MG VIAL SQ PRN (05:06)
[2024-09-25] MEDS ORDERED: DEXTROSE 50% 50 ML SYRINGE IV PRN (05:06)
[2024-09-25] MEDS ORDERED: GLUCOSE 40% GEL 15 GM TUBE PO PRN (05:06)
[2024-09-25] MEDS ORDERED: GLUCOSE 10 TAB/TUBE PO PRN (05:06)
[2024-09-25] MEDS ORDERED: CARBOHYDRATES FOR HYPOGLYCEMIA PO PRN (05:06)
[2024-09-25] MEDS: DOCUSATE SODIUM/SENNA 50/8.6MG TAB PO SCH ×2 (05:51→20:02)
[2024-09-25] MEDS: POLYETHYLENE (MIRALAX) 17 GM PACK PO STA (05:53)
[2024-09-25] MEDS: INSULIN ASPART PER UNIT CHARGE SC SCH (05:54)
--- NOTE | 2024-09-25 06:08 | Magnetic Resonance Report ---
EXAM: MR lumbar spine wo con CLINICAL HISTORY: Progressive back pain TECHNIQUE: Different pulse sequences were performed in different planes for the lumbar spine without contrast. Images were sent through PACs for diagnostic interpretation. COMPARISON: Prior recent CT 09/25/2024 00:15 FINDINGS: Vertebral bodies and alignment: L3 vertebral body transverse linear fracture line of low signals with reduced body height, along with edema, which denotes acute fracture. Evidence of L1 vertebral body wedging and collapse, with marked reduced vertebral body height with edema at STIR Sequence. Also, tehre are some hypointense sclerotic regions in the L1 vertebral body. These findings are suggestive of an acute fracture on top of the chronic compression fracture. 1st degree spondylolithesis of L4 over L5 vertebrae by markedly degenerated facet joints arthropathy. Advanced spondylodegenerative changes in the form of anterior osteophytosis, vertebral end plates altered marrow signals and multi-level degenerative discs changes with decreased signals and reduced heights. Mild lumbar scoliosis with convexity to the left. Intervertebral discs demonstrate diffuse degenerative changes. [id number] analysis: T12-L1: mild disc bulge 2 mm, indenting the theca causing mild spinal canal stenosis. L1-L2: left foraminal large herniation measuring 5 mm cuasing marked neural exit foramina stenosis and encroaching upon the exiting nerve root. L2-L3: Left foraminal herniation measuring 4 mm on top of disc bulge causing mild spinal canal stenosis and left moderate neural foraminal stenosis with milder right foramina stenosis. Indentation of the exiting nerve roots noted. L3-L4: biforaminal herniation measuring about 3 mm on both sides on top of disc bulge causing mild spinal canal stenosis and bilateral moderate neural foraminal stenosis with indentation of the exiting nerve roots. Associated facet joints arthropathy and ligamentum flavum hypertrophy adds to spinal canal and neural foraminal stenosis. L4-L5: There is 4.7 mm diffuse pseudodisc bulging due to listhesis, compressing the dural sac and both exiting nerve roots, causing mild spinal canal stenosis and moderate left and mild right neural foraminal stenosis. Associated facet joints arthropathy adds to foraminal stenosis L5-S1: diffuse disc bulge measuring 2.5 mm effacing the theca and causing bilateral moderate neural foraminal stenosis with indentation of the exiting nerve roots. Associated facet joints arthropathy adds to foraminal stenosis. No significant spinal canal stenosis. Spinal Cord and Nerve Roots: Conus medullaris terminates at the L1 level without abnormality. Soft Tissues: Paraspinal soft tissues appear normal without evidence of abnormal signal intensity or mass lesions. IMPRESSION: 1. Acute/subacute grade 1 compression fracture of the L3 vertebral body. 2. Grade 3 compression fracture of the L1 vertebral body with findings acute on top of chronic compression fracture. 3. 1st degree spondylolithesis of L4 over L5 vertebrae by markedly degenerated facet joints arthropathy. 4. Advanced spondylodegenerative changes. 5. Multilevel degenerative disc pathology with neural effect as described. 6. Mild lumbar scoliosis with convexity to the left. 7. Radiological findings correlated to the prior recent CT with no significant changes. Electronically signed by Ketan Rosenberg 09-25-2024 06:08 AM
--- NOTE | 2024-09-25 08:06 | Orthopedic Consultation ---
Date of Consultation September 25, 2024 Assessment & Plan (1) Compression fracture of lumbar vertebra: Assessment L1 L3 compression fractures. Plan at this time in light of her neutropenia she is a very poor surgical candidate. She emphasizes that this is a normal course of her current chemotherapy and that her white count returns to normal level within weeks. At this point I would recommend therapy as tolerated. Will provide a TLSO brace. She should lift no more than 2 pounds. Avoid repetitive bending and twisting. Ideally these will heal well on its own without any surgical intervention. History of Present Illness Reason for Consultation: Back pain with inability to prosper at home. Attending Physician: Davis Nicole, DO History of Present Illness This is a very pleasant 79-year-old female presents to the hospital with consistent back pain. She had marked limitations at home with inability to safely ambulate and ascend stairs. This morning her pain is controlled while she is at rest. She denies any radicular component to her pain. Denies any numbness or tingling of her legs. She is on chemotherapy and does understand that she is neutropenic. Allergies Allergy/AdvReac Type Severity Reaction Status Date / Time No Known Allergies Allergy Mild Verified 09/17/24 11:27 Home Medications Medication Instructions Recorded Confirmed Type acetaminophen 500 mg tablet 1,000 mg PO Q6 PRN .FEVER/MILD 11/17/19 09/25/24 History PAIN 1-3 citalopram 10 mg tablet 10 mg PO QAM 01/09/24 09/25/24 History gabapentin 100 mg capsule 100 mg PO BID 01/09/24 09/25/24 History venetoclax 100 mg tablet 70 mg PO UD 01/30/24 09/25/24 History (Venclexta) voriconazole 200 mg tablet 200 mg PO Q12 01/30/24 09/25/24 History acyclovir 200 mg capsule 400 mg (2 x 200 mg) PO BID #60 caps 02/02/24 09/25/24 Rx ondansetron HCl 4 mg tablet 4 mg PO Q6H PRN Nausea And 02/02/24 09/25/24 Rx Vomiting #30 tabs amlodipine 10 mg tablet 5 mg PO QAM 08/26/24 09/25/24 History furosemide 20 mg tablet 10 mg PO Q OTHER DAY 08/26/24 09/25/24 History potassium chloride 10 mEq 10 meq PO Q OTHER DAY 08/26/24 09/25/24 History tablet,extended release atorvastatin 20 mg tablet 20 mg PO QAM 09/10/24 09/25/24 History decitabine 50 mg intravenous 0 mg IV MONTHLY 09/10/24 09/25/24 History solution tramadol 50 mg tablet 50 mg PO BID PRN pain #11 tabs 09/23/24 09/25/24 Rx levofloxacin 500 mg tablet 500 mg PO DAILY 09/25/24 09/25/24 History lorazepam 0.5 mg tablet 0.5 mg PO DIRECTED PRN Insomnia 09/25/24 09/25/24 History Patient History Medical History Pericardial effusion History of - 02/2024- evaluated by [facility]- felt related to AML and/or chemo treatments- repeat ECHOs showed improvement (most recent ECHO 05/2024) Lumbar spondylosis Biceps tendinitis of right shoulder Anxiety HTN (hypertension) Diabetes mellitus type II, controlled no meds most recent Hgb A1C 12/2024 was 7.5 History of cellulitis 12/2023 per records Hx of acute respiratory failure (01/2024) had been at [facility] [place] [facility], transferred to [facility]- resolved AML (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 oliver- gets chemo 1 week every month unless wbc is off, last chemo was week of august 31. has blood drawn weekly at [facility] SVT (supraventricular tachycardia) (2004) History of SVT- s/p 2004- no issues since. Sciatica Elevated cholesterol Controlled with statin Surgical History History of insertion of tunneled central venous catheter (CVC) with port (01/2024) right side armstrong cath placed in [place] History of left knee replacement (2019) History of bone marrow biopsy (07/17/24) x3- [facility] and [facility] S/P epidural steroid injection sciatica History of appendectomy (1967) H/O cardiac radiofrequency ablation (2004) 2004 H/O: hysterectomy (1989) [facility] with BSO Family History Father Cancer Other Coronary heart disease Diabetes Leukemia No family history of adverse response to anesthesia Social History Smoking Status: Never smoker Second Hand Exposure: No; Do You Dip or Chew Tobacco: No; Hx Alcohol Use: Yes Alcohol type: wine Hx Substance Use: No Preferred Language: Uzbek Communication Ability: Effective Visual Impairment: No Limitations Numerical Control Lathe Operator Required: No Beliefs That Will Affect Care: None marital status: Current Living Situation: Family Current Living Situation Comment: Lives with daughter and grandson, 2 story home Other Information That Helps Us Care for You: No Feels Safe at Home: Yes Safety Concerns: Feels Safe At This Time Assistive Devices: Cane, Glasses and Walker Physical Exam Physical Exam: On exam she is neurologically intact. She is comfortable. Results & Data Vital Signs (Past 12 Hours) Vital Signs Temp Pulse Pulse Resp BP BP Pulse Ox 09/25/24 07:11 37.5 C 83 16 130/69 94 09/25/24 05:09 36.7 C 77 18 126/81 96 09/25/24 04:39 09/25/24 03:21 64 24 94 09/25/24 03:19 131/64 09/25/24 03:19 131/64 09/25/24 03:19 131/64 09/25/24 03:00 71 19 132/65 93 09/25/24 02:51 72 22 91 09/25/24 02:42 67 22 92 09/25/24 02:06 63 16 100 09/25/24 01:33 73 26 H 126/66 96 09/25/24 00:19 67 09/25/24 00:00 129/77 09/24/24 23:40 36.7 C 89 16 133/70 100 O2 Del Method 09/25/24 07:11 Room Air 09/25/24 05:09 Room Air 09/25/24 04:39 Room Air 09/25/24 03:21 09/25/24 03:19 09/25/24 03:19 09/25/24 03:19 09/25/24 03:00 09/25/24 02:51 09/25/24 02:42 09/25/24 02:06 Room Air 09/25/24 01:33 09/25/24 00:19 09/25/24 00:00 09/24/24 23:40 Room Air
[2024-09-25 08:30] LABS: Hematocrit (blood only) 26.7 % (37.0-47.0); Hemoglobin 8.7 g/dl (12.0-16.0)
[2024-09-25] MEDS: LIDOCAINE 5% 1 PATCH TD STA (08:54)
[2024-09-25] MEDS: ACYCLOVIR 200 MG CAP PO SCH (09:09)
[2024-09-25] MEDS: CITALOPRAM 20 MG TAB PO SCH (09:09)
[2024-09-25] MEDS: ATORVASTATIN 20 MG TAB PO SCH (09:09)
[2024-09-25] MEDS: levoFLOXacin 500 MG TAB PO SCH (09:10)
[2024-09-25] MEDS: GABAPENTIN 100 MG CAP PO SCH (09:10)
[2024-09-25] MEDS: POLYETHYLENE (MIRALAX) 17 GM PACK PO SCH (09:10)
[2024-09-25] MEDS: VORICONAZOLE 200 MG TABLET PO SCH (09:10)
[2024-09-25 09:22] LABS: Hemoglobin A1C 6.4 % (4.5-5.6)
[2024-09-25] MEDS: LANTUS PER UNIT CHARGE SQ SCH (09:23)
[2024-09-25] MEDS: ACETAMINOPHEN 325 MG TAB PO PRN (12:03)
--- NOTE | 2024-09-25 12:27 | Communication Note ---
Date of Service: September 25, 2024 Patient is a 79y/o F with PMHx significant for HTN, HLD, DMII, history of pericardial effusion [very trivial right lateral loculated pericardial effusion of no hemodynamic significance - TTE 05/2024], PSVT s/p ablation in 2004, GERD with esophagitis, primary osteoarthritis of both knees, persistent insomnia, spinal stenosis of lumbar region, sacroiliitis and AML currently undergoing chemotherapy with decitabine/venetoclax on infectious prophylaxis with acyclovir/voriconazole/Levaquin who presented to the ED overnight due to worsening low back pain and was found to have L1, L3 compression fractures. Lumbar spine MRI: Acute/subacute grade 1 compression fracture of the L3 vertebral body. Grade 3 compression fracture of the L1 vertebral body with findings acute on top of chronic compression fracture. Appreciate ortho spine evaluation. Very poor surgical candidate given neutropenia. Ideally both fractures should heal well without any surgical intervention. Recommending PT/OT as tolerated, TLSO brace application. Should not lift any more than 2lb, avoid repetitive bending/twisting. Patient feels pain is under control with current regimen, continue PRN oxy IR. Scheduled bowel regimen. In regard to her neutropenia (WBC 1.00k on 09/22/24 --> 0.72k today), patient and her family at bedside emphasize that her neutropenia typically worsens at this point in her chemotherapy course. Follows with Dr. Gaines. Per their account, patient has not previously required G-CSF administration as her WBC count generally "rebounds" within a few weeks without intervention. Patient notes that it is not uncommon for her treatment sessions to be delayed 1-2 weeks at a time in order to allow her WBC count to naturally increase without G-CSF administration. Will continue to monitor. May need to consider reaching out to Dr. Gaines to consider G-CSF if her neutropenia does not spontaneously improve; next treatment cycle is reportedly planned for 09/29/24. Can continue infection prophylaxis regimen. Neutropenic precautions. Formal progress note to follow tomorrow. Patient seen in collaboration with Dr. Nicole. Jessica Marquez PA-C [facility] Medicine Team
[2024-09-25 16:34] LABS: Anion Gap 6.0 (3-11); Blood Urea Nitrogen 9.0 mg/dl (6-23); Calcium 7.7 mg/dl (8.6-10.3); Carbon Dioxide 27.0 mmol/L (21-32); Chloride 106.0 mmol/L (98-107); Creatinine Clr Calc Pharmacy 91.6 ml/min; Glucose 94.0 mg/dl (70-99(Fasting)); Potassium 3.3 mmol/L (3.5-5.1); Sodium 139.0 mmol/L (136-145)
[2024-09-25] MEDS: REMOVE LIDODERM PATCH SCH (19:58)
[2024-09-26 06:36] LABS: Magnesium 1.9 mg/dl (1.7-2.4)
[2024-09-26 06:48] LABS: Hematocrit (blood only) 25.0 % (37.0-47.0); Hemoglobin 8.4 g/dl (12.0-16.0); Mean Corpuscular Hemoglobin 32.7 pg (25.0-34.0); Mean Corpuscular Volume 97.3 fL (80.0-100.0); Platelet Count 117 K/uL (130-400); RDW Standard Deviation 52.0 fL (36.4-46.3); Red Blood Count 2.57 M/uL (4.20-5.40); White Blood Count 0.78 K/ul (4.8-10.8)
[2024-09-26 07:14] LABS: Immature Granulocytes # (auto) 0.00 K/uL (0.01-0.20); Immature Granulocytes % (auto) 0.0 %
[2024-09-26 07:16] LABS: Ovalocytes 1+; Polychromasia 1+
[2024-09-26 09:28] LABS: Anion Gap 8.0 (3-11); Blood Urea Nitrogen 8.0 mg/dl (6-23); Calcium 8.3 mg/dl (8.6-10.3); Carbon Dioxide 30.0 mmol/L (21-32); Chloride 102.0 mmol/L (98-107); Creatinine Clr Calc Pharmacy 100.8 ml/min; Glucose 133.0 mg/dl (70-99(Fasting)); Potassium 3.3 mmol/L (3.5-5.1); Sodium 140.0 mmol/L (136-145)
[2024-09-26] MEDS: LIDOCAINE 5% 1 PATCH TD SCH (09:57)
[2024-09-26] MEDS: POTASSIUM CHLORIDE CRTAB 20 MEQ TABCR PO STA (11:19)
--- NOTE | 2024-09-26 12:00 | Hospitalist Progress Note ---
<Statement entered by Davis Nicole DO - 09/26/24 16:29> I have seen and examined the patient and have discussed the case with the advance practice provider. I have reviewed the advanced practitioner's documentation, and I agree with, and take responsibility for that plan of care. Patient reports pain only moderately controlled. Using brace. Patient does not think she will be able to return home without a rehab stay Reviewed case management notes, pursuing skilled rehab placement I spent a total of 18 minutes coordinating, documenting, and providing care for this patient excluding time spent by another provider/QHP. Date of Service September 26, 2024 Assessment & Plan (1) Compression fracture of L3 vertebra: (2) Compression fracture of L1 vertebra: (3) AML (acute myeloblastic leukemia): (4) Pancytopenia: Plan Patient is a 79y/o F with PMHx significant for HTN, HLD, DMII, history of pericardial effusion [very trivial right lateral loculated pericardial effusion of no hemodynamic significance - TTE 05/2024], PSVT s/p ablation in 2004, GERD with esophagitis, primary osteoarthritis of both knees, persistent insomnia, spinal stenosis of lumbar region, sacroiliitis and AML currently undergoing chemotherapy with decitabine/venetoclax on infectious prophylaxis with acyclovir/voriconazole/Levaquin who presented to the ED on 09/25/24 due to worsening low back pain and was found to have L1, L3 compression fractures. #Acute/subacute grade 1 compression fracture of the L3 vertebral body #Grade 3 compression fracture of the L1 vertebral body with findings acute on top of chronic compression fracture Appreciate ortho spine evaluation --> "...ideally both fractures should heal well w/o any surgical intervention" Very poor surgical candidate 2/2 neutropenia ISO active AML tx, as per below No lifting any more than 2lb, avoid repetitive bending/twisting PT/OT, TLSO brace application --> suspect will need SNF placement prior to returning home - coordinate w/ CM Continue PRN oxy IR, will schedule Tylenol Q8H for now; scheduled bowel regimen #AML currently undergoing chemotherapy #Chronic infectious prophylaxis [acyclovir/voriconazole/Levaquin] --> continue; no c/f underlying infection at this time #Pancytopenia F/w Dr. Gaines Currently undergoing chemotherapy w/ decitabine/venetoclax WBC 0.78k [previously 0.72k as of 09/25/24] Tentatively scheduled for next chemotherapy session on 09/29/24 -Pt's daughter to get in contact w/ Dr. Gaines to determine if ? proceed vs reschedule -Not uncommon that pt's neutropenia will worsen initially and her tx sessions get delayed by 1-2 weeks at a time -States her WBC ct generally "rebounds" w/o any intervention -Has not previously required G-CSF administration --> will continue to m onitor; if no improvement, may need to consider this H/H, plt ct appear stable compared to prior Neutropenic precautions #HLD Continue statin #HTN BP on lower end this AM --> will hold amlodipine for now, reassess BP trend #Anxiety/depression Continue citalopram #DMII Hgb A1c 6.4% SSI protocol while inpt, monitor BSG checks ACHS #Primary osteoarthritis of both knees Continue gabapentin DVT Prophylaxis: SCDs/TEDs only in light of pancytopenia Code Status: FULL CODE Disposition: PT/OT recommending SNF placement --> will coordinate w/ CM to get this arranged Patient seen in collaboration with Dr. Nicole. Please see addendum. I spent a total of 32 minutes coordinating, documenting, and providing care for this patient excluding time spent in the performance of separately billed services or time spent by another provider/QHP. This included personally reviewing all current laboratories and imaging studies, medical reconciliation, outpatient chart review and discussion with specialists. This chart was completed in part utilizing Speech Voice Recognition Software. Grammatical errors, random word insertions, pronoun errors, and incomplete sentences are an occasional consequence of this system due to software limitations, ambient noise, and hardware issues. Any formal questions or concerns about the content, text, or information contained within the body of this dictation should be directly addressed to the provider for clarification. Admission and Anticipated Discharge Date Admission Date: September 25, 2024 Subjective Patient seen and examined in E309-1. Worked with PT earlier this morning. Feels pain is currently well-controlled. Denies any chest pain or SOB. Review of Systems Review of Systems: At least ten systems reviewed and negative, except as noted in the subjective section. Physical Exam Physical Exam: General: Thin elderly F, NAD, laying down in bed, appears comfortable, A&Ox3, daughter at bedside HEENT: Normocephalic, atraumatic, external ear/nose normal, oropharynx moist Respiratory: Normal respiratory effort, lungs CTAB, no accessory muscle use Cardiovascular: RRR, normal peripheral pulses, no BLE edema Abdomen/GI: Normal bowel sounds, soft, nontender to palpation in all quadrants Extremities/MSK: No cyanosis or clubbing, extremities motor strength intact, actively moves all extremities Neurologic: No overt focal deficits, CN's II-XI not formally tested but appear grossly intact bilaterally Results & Data Results & Data Vital Signs (Past 12 Hours) Vital Signs Temp Pulse Resp BP Pulse Ox O2 Del Method 09/26/24 11:28 37.1 C 76 15 103/66 96 Room Air 09/26/24 08:35 Room Air 09/26/24 07:39 36.8 C 72 16 127/71 95 Room Air Laboratory Results Short CBC 09/26/24 Range/Units 05:55 WBC 0.78 L* (4.8-10.8) K/ul Hgb 8.4 L (12.0-16.0) g/dl Hct 25.0 L (37.0-47.0) % Plt Count 117 L (130-400) K/uL BMP 09/25/24 09/26/24 15:57 05:55 Sodium 139 140 Potassium 3.3 L 3.3 L Chloride 106 102 Carbon Dioxide 27 30 BUN 9 8 Creatinine 0.44 L 0.40 L Glucose 94 133 H Calcium 7.7 L 8.3 L (1) Compression fracture of L3 vertebra Encounter type: initial encounter Qualified Code(s): S32.030A - Wedge compression fracture of third lumbar vertebra, initial encounter for closed fracture (2) Compression fracture of L1 vertebra Encounter type: initial encounter Qualified Code(s): S32.010A - Wedge compression fracture of first lumbar vertebra, initial encounter for closed fracture (3) AML (acute myeloblastic leukemia) Leukemia Active/Remission status: without remission Qualified Code(s): C92.00 - Acute myeloblastic leukemia, not having achieved remission
[2024-09-26] MEDS: ACETAMINOPHEN 500 MG TAB PO SCH (13:42)
[2024-09-27 06:21] LABS: Hematocrit (blood only) 24.7 % (37.0-47.0); Hemoglobin 8.2 g/dl (12.0-16.0); Mean Corpuscular Hemoglobin 32.5 pg (25.0-34.0); Mean Corpuscular Volume 98.0 fL (80.0-100.0); Platelet Count 139 K/uL (130-400); RDW Standard Deviation 52.6 fL (36.4-46.3); Red Blood Count 2.52 M/uL (4.20-5.40); White Blood Count 0.79 K/ul (4.8-10.8)
[2024-09-27 06:56] LABS: Immature Granulocytes # (auto) 0.00 K/uL (0.01-0.20); Immature Granulocytes % (auto) 0.0 %
[2024-09-27 07:11] LABS: Alanine Aminotransferase 9.0 U/L (7-52); Albumin Globulin Ratio 1.0 (0.9-2); Alkaline Phosphatase 92.0 U/L (34-104); Anion Gap 6.0 (3-11); Bilirubin,Total 0.3 mg/dl (0.2-1.0); Blood Urea Nitrogen 11.0 mg/dl (6-23); Calcium 8.5 mg/dl (8.6-10.3); Carbon Dioxide 30.0 mmol/L (21-32); Chloride 102.0 mmol/L (98-107); Creatinine Clr Calc Pharmacy 93.8 ml/min; Globulin 3.0 gm/dl (2.5-4.0); Glucose 113.0 mg/dl (70-99(Fasting)); Magnesium 2.0 mg/dl (1.7-2.4); Potassium 3.6 mmol/L (3.5-5.1); Sodium 138.0 mmol/L (136-145); Total Protein 6.1 gm/dl (6.0-8.3)
--- NOTE | 2024-09-27 10:25 | Orthopedic Progress Note ---
Date of Service September 27, 2024 Assessment & Plan (1) Compression fracture of L3 vertebra: Plan: At this time we will continue to encourage her to undergo therapy as tolerated. Wear the brace when out of bed. I will emphasize she is not a surgical candidate with her current clinical status. I understand she is somewhat frustrated with this position. Admission and Anticipated Discharge Date Admission Date: September 25, 2024 Subjective Patient states her back pain is controlled at rest. The pain medication is providing some relief. The brace is helpful. Still however limited overall. She is comfortable with rehab placement. Physical Exam Physical Exam: On exam she is currently in bed. Neurologically intact. Results & Data Vital Signs (Past 12 Hours) Vital Signs Temp Pulse Resp BP Pulse Ox O2 Del Method 09/27/24 08:34 36.7 C 77 16 131/72 97 Room Air 09/26/24 23:01 36.8 C 80 18 124/70 94 Room Air (1) Compression fracture of L3 vertebra Encounter type: initial encounter Qualified Code(s): S32.030A - Wedge compression fracture of third lumbar vertebra, initial encounter for closed fracture
--- NOTE | 2024-09-27 13:02 | Hospitalist Progress Note ---
Date of Service September 27, 2024 Assessment & Plan (1) Compression fracture of L3 vertebra: (2) Compression fracture of L1 vertebra: (3) AML (acute myeloblastic leukemia): (4) Pancytopenia: Plan Patient is a 79y/o F with PMHx significant for HTN, HLD, DMII, history of pericardial effusion [very trivial right lateral loculated pericardial effusion of no hemodynamic significance - TTE 05/2024], PSVT s/p ablation in 2004, GERD with esophagitis, primary osteoarthritis of both knees, persistent insomnia, spinal stenosis of lumbar region, sacroiliitis and AML currently undergoing chemotherapy with decitabine/venetoclax on infectious prophylaxis with acyclovir/voriconazole/Levaquin who presented to the ED on 09/25/24 due to worsening low back pain and was found to have L1, L3 compression fractures. #Acute/subacute grade 1 compression fracture of the L3 vertebral body #Grade 3 compression fracture of the L1 vertebral body with findings acute on top of chronic compression fracture Appreciate ortho spine evaluation --> "...ideally both fractures should heal well w/o any surgical intervention" Very poor surgical candidate 2/2 neutropenia ISO active AML tx, as per below No lifting any more than 2lb, avoid repetitive bending/twisting PT/OT, TLSO brace application --> PT/OT recommending SNF - will need to coordinate w/ CM Continue PRN oxy IR 5mg (offered to increase dose this AM 2/2 episode of increasing pain but pt declined -- states oxy makes her very tired so would like to stay on current dose) Continue Tylenol Q8H nohemi; nohemi bowel regimen #AML currently undergoing chemotherapy #Chronic infectious prophylaxis [acyclovir/voriconazole/Levaquin] --> continue; no c/f underlying infection at this time #Pancytopenia F/w Dr. Ganies Currently undergoing monthly chemotherapy w/ decitabine/venetoclax WBC 0.79k today [previously 0.72k on 09/25/24] Tentatively scheduled for next chemotherapy session on 09/29/24 -Pt's daughter to get in contact w/ Dr. Gaines to determine if ? proceed vs reschedule -Not uncommon that pt's neutropenia will worsen initially and her tx sessions get delayed by 1-2 weeks at a time -States her WBC ct generally "rebounds" w/o any intervention -Has not previously required G-CSF administration --> will continue to monitor; if no improvement before 09/29, may need to consider this -Need to consider getting in contact w/ Dr. Gaines if no clear answer from pt's daughter H/H, plt ct appear stable compared to prior Neutropenic precautions #HLD Continue statin #HTN BP still soft Continue to hold Norvasc for now, resume as able #Anxiety/depression Continue citalopram #DMII Hgb A1c 6.4% SSI protocol while inpt, BSG remains stable #Primary osteoarthritis of both knees Continue gabapentin DVT Prophylaxis: SCDs/TEDs only in light of pancytopenia Code Status: FULL CODE Disposition: PT/OT recommending SNF placement --> coordinating w/ CM to get this arranged; referral placed to [facility] on 09/26 Patient seen in collaboration with Dr. Nicole. Please see addendum. I spent a total of 32 minutes coordinating, documenting, and providing care for this patient excluding time spent in the performance of separately billed services or time spent by another provider/QHP. This included personally reviewing all current laboratories and imaging studies, medical reconciliation, outpatient chart review and discussion with specialists. This chart was completed in part utilizing Speech Voice Recognition Software. Grammatical errors, random word insertions, pronoun errors, and incomplete sentences are an occasional consequence of this system due to software limitations, ambient noise, and hardware issues. Any formal questions or concerns about the content, text, or information contained within the body of this dictation should be directly addressed to the provider for clarification. Admission and Anticipated Discharge Date Admission Date: September 25, 2024 Subjective Patient seen and examined in room E309-1. Reports pain was slightly worse earlier this morning but now is feeling improved. Most comfortable when lying down in bed. Did work with PT/OT yesterday. Discussed recommendations regarding SNF placement to which patient is agreeable with. Mentions feeling tired from the pain meds. Review of Systems Review of Systems: At least ten systems reviewed and negative, except as noted in the subjective section. Physical Exam Physical Exam: General: Thin elderly F, NAD, laying down in bed, appears comfortable, A&Ox3 HEENT: Normocephalic, atraumatic, external ear/nose normal, oropharynx moist Respiratory: Normal respiratory effort, lungs CTAB, no accessory muscle use Cardiovascular: RRR, normal peripheral pulses, no BLE edema Abdomen/GI: Normal bowel sounds, soft, nontender to palpation in all quadrants Extremities/MSK: No cyanosis or clubbing, extremities motor strength intact, actively moves all extremities Neurologic: No overt focal deficits, CN's II-XI not formally tested but appear grossly intact bilaterally Results & Data Results & Data Vital Signs (Past 12 Hours) Vital Signs Temp Pulse Resp BP Pulse Ox O2 Del Method 09/27/24 08:34 36.7 C 77 16 131/72 97 Room Air Laboratory Results Short CBC 09/27/24 Range/Units 05:40 WBC 0.79 L* (4.8-10.8) K/ul Hgb 8.2 L (12.0-16.0) g/dl Hct 24.7 L (37.0-47.0) % Plt Count 139 (130-400) K/uL BMP 09/27/24 05:40 Sodium 138 Potassium 3.6 Chloride 102 Carbon Dioxide 30 BUN 11 Creatinine 0.43 L Glucose 113 H Calcium 8.5 L Liver Function 09/27/24 Range/Units 05:40 Total Bilirubin 0.3 (0.2-1.0) mg/dl AST 13 (13-39) U/L ALT 9 (7-52) U/L Alkaline Phosphatase 92 (34-104) U/L Albumin 3.1 L (3.4-5.0) gm/dl (1) Compression fracture of L3 vertebra Encounter type: initial encounter Qualified Code(s): S32.030A - Wedge compression fracture of third lumbar vertebra, initial encounter for closed fracture (2) Compression fracture of L1 vertebra Encounter type: initial encounter Qualified Code(s): S32.010A - Wedge compression fracture of first lumbar vertebra, initial encounter for closed fracture (3) AML (acute myeloblastic leukemia) Leukemia Active/Remission status: without remission Qualified Code(s): C92.00 - Acute myeloblastic leukemia, not having achieved remission
[2024-09-27] MEDS: LORazepam 0.5 MG TAB PO PRN (15:23)
[2024-09-28] MEDS: HEPARIN 100 UNIT/ML 5ML FLUSH FLUSH PRN (05:30)
[2024-09-28 06:43] LABS: Hematocrit (blood only) 25.1 % (37.0-47.0); Hemoglobin 8.3 g/dl (12.0-16.0); Mean Corpuscular Hemoglobin 32.0 pg (25.0-34.0); Mean Corpuscular Volume 96.9 fL (80.0-100.0); Platelet Count 175 K/uL (130-400); RDW Standard Deviation 52.8 fL (36.4-46.3); Red Blood Count 2.59 M/uL (4.20-5.40); White Blood Count 0.96 K/ul (4.8-10.8)
[2024-09-28 06:46] LABS: Anion Gap 6.0 (3-11); Blood Urea Nitrogen 13.0 mg/dl (6-23); Calcium 8.5 mg/dl (8.6-10.3); Carbon Dioxide 31.0 mmol/L (21-32); Chloride 102.0 mmol/L (98-107); Creatinine Clr Calc Pharmacy 85.8 ml/min; Glucose 115.0 mg/dl (70-99(Fasting)); Magnesium 2.1 mg/dl (1.7-2.4); Potassium 3.7 mmol/L (3.5-5.1); Sodium 139.0 mmol/L (136-145)
[2024-09-28 06:47] LABS: Ovalocytes 1+; Polychromasia 1+
[2024-09-28 07:39] LABS: Immature Granulocytes # (auto) 0.00 K/uL (0.01-0.20); Immature Granulocytes % (auto) 0.0 %
--- NOTE | 2024-09-28 07:53 | Hospitalist Progress Note ---
Date of Service September 28, 2024 Assessment & Plan (1) Compression fracture of L3 vertebra: (2) Compression fracture of L1 vertebra: (3) AML (acute myeloblastic leukemia): (4) Pancytopenia: Plan Patient is a 79y/o F with PMHx significant for HTN, HLD, DMII, history of pericardial effusion [very trivial right lateral loculated pericardial effusion of no hemodynamic significance - TTE 05/2024], PSVT s/p ablation in 2004, GERD with esophagitis, primary osteoarthritis of both knees, persistent insomnia, spinal stenosis of lumbar region, sacroiliitis and AML currently undergoing chemotherapy with decitabine/venetoclax on infectious prophylaxis with acyclovir/voriconazole/Levaquin who presented to the ED on 09/25/24 due to worsening low back pain and was found to have L1, L3 compression fractures. #Acute/subacute grade 1 compression fracture of the L3 vertebral body #Grade 3 compression fracture of the L1 vertebral body with findings acute on top of chronic compression fracture Appreciate ortho spine evaluation --> "...ideally both fractures should heal well w/o any surgical intervention" Very poor surgical candidate 2/2 neutropenia ISO active AML tx, as per below No lifting any more than 2lb, avoid repetitive bending/twisting PT/OT, TLSO brace application --> PT/OT recommending SNF - will need to coordinate w/ CM Continue PRN oxy IR 5mg (previously offered to increase dose 2/2 breakthrough pain but pt denied) Added on PRN IV Toradol given stable H/H, plt ct, renal fx (per pt's request) --> continue to monitor Continue Tylenol Q8H [facility] bowel regimen --> pt w/o BM for ~4d; increase MiraLAX to BID dosing, PRN Fleet enemas #AML currently undergoing chemotherapy #Chronic infectious prophylaxis [acyclovir/voriconazole/Levaquin] --> continue; no c/f underlying infection at this time #Pancytopenia F/w Dr. Gaines Currently undergoing monthly chemotherapy w/ decitabine/venetoclax WBC 0.96k today [previously 0.72k on 09/25/24] Tentatively scheduled for next chemotherapy session on 09/29/24 -Not uncommon that pt's neutropenia will worsen initially and her tx sessions get delayed by 1-2 weeks at a time -States her WBC ct generally "rebounds" w/o any intervention -Has not previously required G-CSF administration --> will continue to monitor -May need to consider getting in contact w/ Dr. Gaines tomorrow for possible G-CSF administration -Ultimately her next tx session will be delayed; will need to determine next steps for getting this rearranged H/H, plt ct stable compared to prior Neutropenic precautions #HLD Continue statin #HTN BP still soft Continue to hold Norvasc for now, resume as able #Anxiety/depression Continue citalopram #DMII Hgb A1c 6.4% SSI protocol while inpt, BSG remains stable #Primary osteoarthritis of both knees Continue gabapentin DVT Prophylaxis: SCDs/TEDs only in light of pancytopenia Code Status: FULL CODE Disposition: PT/OT recommending SNF placement --> coordinating w/ CM to get this arranged; referral placed to [facility] on 09/26 Patient seen in collaboration with Dr. Nicole. Please see addendum. I spent a total of 32 minutes coordinating, documenting, and providing care for this patient excluding time spent in the performance of separately billed services or time spent by another provider/QHP. This included personally reviewing all current laboratories and imaging studies, medical reconciliation, outpatient chart review and discussion with specialists. This chart was completed in part utilizing Speech Voice Recognition Software. Grammatical errors, random word insertions, pronoun errors, and incomplete sentences are an occasional consequence of this system due to software limitations, ambient noise, and hardware issues. Any formal questions or concerns about the content, text, or information contained within the body of this dictation should be directly addressed to the provider for clarification. Admission and Anticipated Discharge Date Admission Date: September 25, 2024 Subjective Patient seen and examined in room E309-1. MANNIEO. Endorses good pain control this morning. Tolerating diet without issue. Feeling some abdominal bloating. No BM in about 4 days. Denies any abdominal pain or N/V. Encouraged her to get out of bed and ambulate around the halls. States she is already planning to walk the halls with nursing staff this afternoon. Review of Systems Review of Systems: At least ten systems reviewed and negative, except as noted in the subjective section. Physical Exam Physical Exam: General: Thin elderly F, NAD, laying down in bed, appears comfortable, A&Ox3 HEENT: Normocephalic, atraumatic, external ear/nose normal, oropharynx moist Respiratory: Normal respiratory effort, lungs CTAB, no accessory muscle use Cardiovascular: RRR, normal peripheral pulses, no BLE edema Abdomen/GI: Normal bowel sounds, soft, nontender to palpation in all quadrants Extremities/MSK: No cyanosis or clubbing, extremities motor strength intact, actively moves all extremities Neurologic: No overt focal deficits, CN's II-XI not formally tested but appear grossly intact bilaterally Results & Data Results & Data Vital Signs (Past 12 Hours) Vital Signs Temp Pulse Resp BP Pulse Ox O2 Del Method 09/27/24 22:36 37.5 C 99 H 16 119/66 91 Room Air 09/27/24 20:42 Room Air Laboratory Results Short CBC 09/28/24 Range/Units 05:24 WBC 0.96 L* (4.8-10.8) K/ul Hgb 8.3 L (12.0-16.0) g/dl Hct 25.1 L (37.0-47.0) % Plt Count 175 (130-400) K/uL BMP 09/28/24 05:24 Sodium 139 Potassium 3.7 Chloride 102 Carbon Dioxide 31 BUN 13 Creatinine 0.47 L Glucose 115 H Calcium 8.5 L (1) Compression fracture of L3 vertebra Encounter type: initial encounter Qualified Code(s): S32.030A - Wedge compression fracture of third lumbar vertebra, initial encounter for closed fracture (2) Compression fracture of L1 vertebra Encounter type: initial encounter Qualified Code(s): S32.010A - Wedge compression fracture of first lumbar vertebra, initial encounter for closed fracture (3) AML (acute myeloblastic leukemia) Leukemia Active/Remission status: without remission Qualified Code(s): C92.00 - Acute myeloblastic leukemia, not having achieved remission
[2024-09-28] MEDS ORDERED: SOD PHOSPHATE/SOD BIPHOSPHATE ENEMA 132 ML BTL PR PRN (09:04)
[2024-09-28] MEDS ORDERED: KETOROLAC TROMETHAMINE 15 MG/ML VIAL IV PRN (09:06)
[2024-09-28] MEDS: MoRPHine SULFATE 2 MG/ML CARP IV STA (12:04)
[2024-09-28] MEDS: IBUPROFEN 200 MG TAB PO SCH (13:51)
[2024-09-28] MEDS: POLYETHYLENE (MIRALAX) 17 GM PACK PO SCH (19:39)
[2024-09-29 06:50] LABS: Hematocrit (blood only) 25.9 % (37.0-47.0); Hemoglobin 8.4 g/dl (12.0-16.0); Mean Corpuscular Hemoglobin 31.6 pg (25.0-34.0); Mean Corpuscular Volume 97.4 fL (80.0-100.0); Platelet Count 200 K/uL (130-400); RDW Standard Deviation 52.9 fL (36.4-46.3); Red Blood Count 2.66 M/uL (4.20-5.40); White Blood Count 1.15 K/ul (4.8-10.8)
[2024-09-29 07:10] LABS: Anion Gap 7.0 (3-11); Blood Urea Nitrogen 15.0 mg/dl (6-23); Calcium 8.5 mg/dl (8.6-10.3); Carbon Dioxide 31.0 mmol/L (21-32); Chloride 101.0 mmol/L (98-107); Creatinine Clr Calc Pharmacy 82.3 ml/min; Glucose 102.0 mg/dl (70-99(Fasting)); Magnesium 2.2 mg/dl (1.7-2.4); Potassium 3.6 mmol/L (3.5-5.1); Sodium 139.0 mmol/L (136-145)
[2024-09-29 07:38] LABS: Immature Granulocytes # (auto) 0.01 K/uL (0.01-0.20); Immature Granulocytes % (auto) 0.9 %; Ovalocytes 1+; Polychromasia 1+
[2024-09-29] MEDS ORDERED: SODIUM CHLORIDE 0.65% NA SOLN 45 ML (OCEAN) PRN (10:34)
[2024-09-29] MEDS: SIMETHICONE 80 MG CHEW PO PRN (12:07)
--- NOTE | 2024-09-29 13:44 | Hospitalist Progress Note ---
<Statement entered by Davis Nicole DO - 09/29/24 15:44> I have seen and examined the patient and have discussed the case with the advance practice provider. I have reviewed the advanced practitioner's documentation, and I agree with, and take responsibility for that plan of care. Patient reports was up out of the chair for breakfast, however pain exacerbated now and need to be back in bed despite her wanting to do some more activity this morning. Continue with bracing and pain control Continue to pursue skilled placement for rehab I spent a total of 10 minutes coordinating, documenting, and providing care for this patient excluding time spent by another provider/QHP. Date of Service September 29, 2024 Assessment & Plan (1) Compression fracture of L3 vertebra: (2) Compression fracture of L1 vertebra: (3) AML (acute myeloblastic leukemia): (4) Pancytopenia: Plan 79 year old female with PMH significant for HTN, HLD, DMII, history of pericardial effusion [very trivial right lateral loculated pericardial effusion of no hemodynamic significance - TTE 05/2024], PSVT s/p ablation in 2004, GERD with esophagitis, primary osteoarthritis of both knees, persistent insomnia, spinal stenosis of lumbar region, sacroiliitis and AML currently undergoing chemotherapy with decitabine/venetoclax on infectious prophylaxis with acyclovir/voriconazole/Levaquin who presented to the ED on 09/25/24 due to worsening low back pain and is admitted for L1 and L3 compression fractures. Acute/subacute grade 1 compression fracture of the L3 vertebral body Grade 3 compression fracture of the L1 vertebral body with findings acute on top of chronic compression fracture Orthospine evaluated: --Very poor surgical candidate due to neutropenia --Recommend therapy as tolerated --TLSO brace when OOB --Lift no more than 2 pounds --Avoid repetitive bending and twisting Pain control with tylenol and oxycodone PT/OT recommending rehab AML currently undergoing chemotherapy Pancytopenia Follows with Dr. Gaines Currently undergoing monthly chemotherapy with decitabine/venetoclax WBC 1.15k today (up from 0.96) and neutrophils 0.43 today (up from 0.27) Due for next chemotherapy session today Discussion with Dr. Gaines via TT: will delay chemo treatment until after rehab stay Continue chronic infectious prophylaxis with acyclovir, voriconazole, levofloxacin Continue neutropenic precautions HLD Continue statin HTN BP still intermittently soft Continue to hold Norvasc for now, resume as able Anxiety/depression Continue citalopram DMII Hgb A1C 6.4% BSG ACHS and SSI while inpatient DVT Prophylaxis: TEDs/SCDs Code Status: FULL CODE PCP: [facility] Disposition: likely dc to [facility] tomorrow pending auth Update provided to patient's daughter, Shanna, via telephone. All questions and concerns addressed. Patient seen in collaboration with Dr. Nicole. Please see addendum. I spent a total of 60 minutes coordinating, documenting and providing care for this patient excluding time spent in the performance of separately billed services or time spent by another provider/QHP. Admission and Anticipated Discharge Date Admission Date: September 25, 2024 Subjective Patient seen laying in bed Reports she was OOB to BR and chair with TLSO brace on Had a lot of pain, delayed pain medicine administration, had to get back in bed Is wondering about her chemo that is due today No other acute concerns Review of Systems Review of Systems: All systems reviewed & are unremarkable except as noted in Subjective Physical Exam Physical Exam: General/Psych: WD/WN, sitting up in bed, conversing easily, appears uncomfortable Head: normocephalic, atraumatic Eyes: normal inspection, PERRL, conjunctivae pink ENT: external ear and nose normal, oropharynx normal Neck: normal visual inspection, trachea midline Respiratory: normal respiratory effort, lungs clear to auscultation, no wheeze/rales/rhonchi, no accessory muscle use Cardiovascular: regular rate and rhythm, no murmur/rub/gallop, no JVD Extremities: no cyanosis or clubbing, normal peripheral pulses, no BLE edema Abdomen/GI: normal bowel sounds, soft, nontender Neurologic/MSK: A+Ox3, motor strength 5/5, moves all extremities Skin: no rashes, normal color, warm and dry Results & Data Results & Data Vital Signs (Past 12 Hours) Vital Signs Temp Pulse Resp BP Pulse Ox O2 Del Method 09/29/24 11:56 36.8 C 94 H 16 129/72 Room Air 09/29/24 07:51 36.8 C 81 14 131/76 96 Room Air Laboratory Results Short CBC 09/29/24 Range/Units 05:39 WBC 1.15 L (4.8-10.8) K/ul Hgb 8.4 L (12.0-16.0) g/dl Hct 25.9 L (37.0-47.0) % Plt Count 200 (130-400) K/uL BMP 09/29/24 05:39 Sodium 139 Potassium 3.6 Chloride 101 Carbon Dioxide 31 BUN 15 Creatinine 0.49 L Glucose 102 H Calcium 8.5 L I have independently reviewed and interpreted patient's labs including CBC, BMP, mag Medications Administered Current Inpatient Medications Acetaminophen (Acetaminophen 500 Mg Tab) 1,000 mg PO Q8H [facility] Stop: 10/26/24 11:59 Last Admin: 09/29/24 12:49 Dose: 1,000 mg Acyclovir (Acyclovir 200 Mg Cap) 400 mg PO BID [facility] Stop: 10/25/24 08:59 Last Admin: 09/29/24 09:25 Dose: 400 mg Amlodipine Besylate (Amlodipine Besylate 5 Mg Tab) 5 mg PO QAM [facility] Stop: 10/25/24 08:59 Last Admin: 09/26/24 07:53 Dose: 5 mg Atorvastatin Calcium (Atorvastatin 20 Mg Tab) 20 mg PO QAM [facility] Stop: 10/25/24 08:59 Last Admin: 09/29/24 09:25 Dose: 20 mg Citalopram Hydrobromide (Citalopram 20 Mg Tab) 10 mg PO QAM [facility] Stop: 10/25/24 08:59 Last Admin: 09/29/24 09:25 Dose: 10 mg Dextrose (Dextrose 50% 50 Ml Syringe) 25 - 50 ml IV UD PRN; Protocol PRN Reason: Hypoglycemia Protocol Stop: 10/25/24 05:05 Gabapentin (Gabapentin 100 Mg Cap) 100 mg PO BID [place] Stop: 10/25/24 08:59 Last Admin: 09/29/24 09:25 Dose: 100 mg Glucagon (Glucagon For Inj 1 Mg Vial) 1 mg SQ UD PRN; Protocol PRN Reason: Hypoglycemia Protocol Stop: 10/25/24 05:05 Glucose (Glucose 40% Gel 15 Gm Tube) 15 - 30 gm PO UD PRN; Protocol PRN Reason: Hypoglycemia Protocol Stop: 10/25/24 05:05 Glucose (Glucose 10 Tab/Tube) 4 - 8 tab PO UD PRN; Protocol PRN Reason: Hypoglycemia Protocol Stop: 10/25/24 05:05 Heparin Sodium (Porcine) (Heparin 100 Unit/Ml 5ml Flush) 5 ml FLUSH PRN PRN PRN Reason: Flush Stop: 10/27/24 10:16 Last Admin: 09/28/24 12:04 Dose: 5 ml Promethazine HCl (Phenergan) 6.25 mg in 50.25 mls @ 201 mls/hr IV Q6H PRN PRN Reason: Nausea And Vomiting Stop: 10/25/24 03:13 Ibuprofen (Ibuprofen 200 Mg Tab) 400 mg PO BID [facility] Stop: 10/28/24 13:29 Last Admin: 09/29/24 09:27 Dose: 400 mg Insulin Aspart (Insulin Aspart Per Unit Charge) 0 units SC ACHS [facility] Stop: 10/25/24 05:05 Last Admin: 09/29/24 12:19 Dose: Not Given Insulin Glargine (Lantus Per Unit Charge) 5 units SQ DAILY [facility] Stop: 10/25/24 08:59 Last Admin: 09/29/24 09:39 Dose: Not Given Levofloxacin (Levofloxacin 500 Mg Tab) 500 mg PO DAILY [facility]; Protocol Stop: 10/25/24 08:59 Last Admin: 09/29/24 09:26 Dose: 500 mg Lidocaine (Lidocaine 5% 1 Patch) 1 patch TD QAM [facility] Stop: 10/26/24 08:59 Last Admin: 09/29/24 09:26 Dose: 1 patch Lorazepam (Lorazepam 0.5 Mg Tab) 0.5 mg PO HS PRN PRN Reason: Insomnia Stop: 10/25/24 03:11 Lorazepam (Lorazepam 0.5 Mg Tab) 0.25 mg PO TID PRN PRN Reason: Anxiety Stop: 10/25/24 03:29 Last Admin: 09/27/24 15:23 Dose: 0.25 mg Miscellaneous (Remove Lidoderm Patch) 1 each N/A DAILY@2100 [facility] Stop: 10/25/24 15:59 Last Admin: 09/28/24 19:35 Dose: 1 each Miscellaneous (Carbohydrates For Hypoglycemia ) 15 - 30 gm PO UD PRN PRN Reason: Hypoglycemia Protocol Stop: 10/25/24 05:05 Oxycodone HCl (Oxycodone Hcl Ir 5 Mg Tab (Immediate Release)) 5 mg PO Q4H PRN PRN Reason: Pain Stop: 10/09/24 03:29 Last Admin: 09/29/24 12:48 Dose: 5 mg Polyethylene Glycol (Polyethylene (Miralax) 17 Gm Pack) 17 gm PO BID [place] Stop: 10/28/24 20:59 Last Admin: 09/29/24 09:35 Dose: 17 gm Senna/Docusate Sodium (Docusate Sodium/Senna 50/8.6mg Tab) 1 tab PO BID [place] Stop: 10/25/24 20:59 Last Admin: 09/29/24 09:35 Dose: 1 tab Simethicone (Simethicone 80 Mg Chew) 80 mg PO Q6H PRN PRN Reason: Flatulence Stop: 10/29/24 11:51 Last Admin: 09/29/24 12:07 Dose: 80 mg Sodium Biphosphate/Sodium Phosphate (Sod Phosphate/Sod Biphosphate Enema 132 Ml Btl) 132 ml IN DAILY PRN PRN Reason: Constipation Stop: 10/28/24 09:03 Sodium Chloride (Sodium Chloride 0.65% Na Soln 45 Ml ([place])) 2 sprays NA DAILY PRN PRN Reason: Dryness Stop: 10/29/24 10:33 Voriconazole (Voriconazole 200 Mg Tablet) 200 mg PO Q12 [place] Stop: 10/25/24 08:59 Last Admin: 09/29/24 09:26 Dose: 200 mg (1) Compression fracture of L3 vertebra Encounter type: initial encounter Qualified Code(s): S32.030A - Wedge compression fracture of third lumbar vertebra, initial encounter for closed fracture (2) Compression fracture of L1 vertebra Encounter type: initial encounter Qualified Code(s): S32.010A - Wedge compression fracture of first lumbar vertebra, initial encounter for closed fracture (3) AML (acute myeloblastic leukemia) Leukemia Active/Remission status: without remission Qualified Code(s): C92.00 - Acute myeloblastic leukemia, not having achieved remission
[2024-09-30 06:48] LABS: Hematocrit (blood only) 26.3 % (37.0-47.0); Hemoglobin 8.3 g/dl (12.0-16.0); Mean Corpuscular Hemoglobin 31.4 pg (25.0-34.0); Mean Corpuscular Volume 99.6 fL (80.0-100.0); Platelet Count 213 K/uL (130-400); RDW Standard Deviation 54.4 fL (36.4-46.3); Red Blood Count 2.64 M/uL (4.20-5.40); White Blood Count 1.99 K/ul (4.8-10.8)
[2024-09-30 07:53] LABS: Ovalocytes 1+; Polychromasia 2+; Toxic Granulation 2+
[2024-09-30 08:15] LABS: Immature Granulocytes # (auto) 0.01 K/uL (0.01-0.20); Immature Granulocytes % (auto) 0.5 %
--- NOTE | 2024-09-30 11:01 | Discharge Summary ---
Discharge Summary Date of Service September 30, 2024 Principal Dx & Hospital Course #1 = Principal Diagnosis (1) Compression fracture of L3 vertebra: (2) Compression fracture of L1 vertebra: (3) AML (acute myeloblastic leukemia): (4) Pancytopenia: Plan 79 year old female with PMH significant for HTN, HLD, DMII, history of pericardial effusion [very trivial right lateral loculated pericardial effusion of no hemodynamic significance - TTE 05/2024], PSVT s/p ablation in 2004, GERD with esophagitis, primary osteoarthritis of both knees, persistent insomnia, spinal stenosis of lumbar region, sacroiliitis and AML currently undergoing chemotherapy with decitabine/venetoclax on infectious prophylaxis with acyclovir/voriconazole/Levaquin who presented to the ED on 09/25/24 due to worsening low back pain and was admitted for L1 and L3 compression fractures. Acute/subacute grade 1 compression fracture of the L3 vertebral body Grade 3 compression fracture of the L1 vertebral body with findings acute on top of chronic compression fracture Orthospine evaluated: --Very poor surgical candidate due to neutropenia --Physical therapy as tolerated --TLSO brace when OOB --Lift no more than 2 pounds --Avoid repetitive bending and twisting Pain controlled with tylenol, ibuprofen, and oxycodone Continue bowel regimen while on opioids PT/OT recommended rehab Patient discharged to [facility] for rehab AML currently undergoing chemotherapy Pancytopenia Follows with [facility]Onc Dr. Gaines Currently undergoing monthly chemotherapy with decitabine/venetoclax Was due for next chemotherapy session on 09/29/2024 - Dr. Gaines decided to delay chemo treatment until after rehab stay Continue chronic infectious prophylaxis with acyclovir, voriconazole, levof loxacin Appt with Dr Gaines scheduled for 10/29/2024 HLD Continue statin HTN Continue furosemide Amlodipine held for intermittent softer BPs of 100s/50s Recommend continue to hold amlodipine until PCP follow up Anxiety/depression Continue citalopram DMII Hgb A1C 6.4% Diet controlled Patient seen in collaboration with Dr. Montoya. Please see addendum. Notes For Next Care Provider 79 year old female with significant PMH who was admitted at [facility] from 09/25- 09/29/2024 for two lumbar compression fractures. Orthospine evaluated the patient and recommended conservative treatment due to her being a poor surgical candidate with AML and neutropenia. PT and OT recommended rehab and patient was discharged to [facility] for rehab services. Patient will need to follow up with Oncology after rehab to continue monthly chemo treatments that were due during hospitalization. Appt scheduled for 10/29/2024. Medication Changes From Visit Hold amlodipine due to intermittent hypotension Admission HPI Per Admitting Provider History obtained from patient, family, and records. Medical history significant for hypertension, hyperlipidemia, PSVT status post ablation, AML ongoing chemotherapy on anti-infective prophylaxis, history sacroiliitis/LSS as per records, chronic pancytopenia (baseline hemoglobin 10), anxiety disorder. Last month, patient noted back pain after tripping and falling at home. No consultations done. No fever, no chills. No leg radiation. No bowel/bladder incontinence. Back pain worse on moving around. Patient noted worsening of discomfort after outpatient a port placement last week. Patient consulted ER for evaluation 2 days ago. Plain LSXR showed new inferior endplate compression fracture L3 and a compression deformity L1 (acute to subacute). Patient discharged on tramadol course and outpatient Orthopedics spine referral. Patient returned to ER because of uncontrolled achy low back pain. Last BM was 2 days ago which is unusual for her No abdominal pain, no nausea, no vomiting. 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 Exam Per Admitting Provider GENERAL: Comfortable, pleasant, no respiratory distress SKIN: Pallor, warm HEENT: Pale palpebral conjunctivae, no ptosis, dry buccal mucosa NECK : Supple, no tenderness CHEST : CTA, no tenderness HEART : RRR, no obvious murmurs ABDOMEN: Some distention, nontender BACK : Low back tenderness, limited SLR EXTREMITIES : No LE swelling/tenderness, palpable pulses, no other conspicuous deformities noted NEUROLOGIC : Coherent, no facial asymmetry, no other gross focality Discharge Exam General/Psych: WD/WN, sitting up in chair with TLSO brace on, conversing easily, NAD Head: normocephalic, atraumatic Eyes: normal inspection, PERRL, conjunctivae pink ENT: external ear and nose normal, oropharynx normal Neck: normal visual inspection, trachea midline Respiratory: normal respiratory effort, lungs clear to auscultation, no wheez e/rales/rhonchi, no accessory muscle use Cardiovascular: regular rate and rhythm, no murmur/rub/gallop, no JVD Extremities: no cyanosis or clubbing, normal peripheral pulses, no BLE edema Abdomen/GI: normal bowel sounds, soft, nontender Neurologic/MSK: A+Ox3, motor strength 5/5, moves all extremities Skin: no rashes, normal color, warm and dry Updated Medication List Medication Instructions Recorded Confirmed Type acetaminophen 500 mg tablet 1,000 mg PO Q6 PRN .FEVER/MILD 11/17/19 09/25/24 History PAIN 1-3 citalopram 10 mg tablet 10 mg PO QAM 01/09/24 09/25/24 History gabapentin 100 mg capsule 100 mg PO BID 01/09/24 09/25/24 History venetoclax 100 mg tablet 70 mg PO UD 01/30/24 09/25/24 History (Venclexta) voriconazole 200 mg tablet 200 mg PO Q12 01/30/24 09/25/24 History acyclovir 200 mg capsule 400 mg (2 x 200 mg) PO BID #60 caps 02/02/24 09/25/24 Rx ondansetron HCl 4 mg tablet 4 mg PO Q6H PRN Nausea And 02/02/24 09/25/24 Rx Vomiting #30 tabs amlodipine 10 mg tablet 5 mg PO QAM 08/26/24 09/25/24 History furosemide 20 mg tablet 10 mg PO Q OTHER DAY 08/26/24 09/25/24 History potassium chloride 10 mEq 10 meq PO Q OTHER DAY 08/26/24 09/25/24 History tablet,extended release atorvastatin 20 mg tablet 20 mg PO QAM 09/10/24 09/25/24 History decitabine 50 mg intravenous 0 mg IV MONTHLY 09/10/24 09/25/24 History solution tramadol 50 mg tablet 50 mg PO BID PRN pain #11 tabs 09/23/24 09/25/24 Rx levofloxacin 500 mg tablet 500 mg PO DAILY 09/25/24 09/25/24 History lorazepam 0.5 mg tablet 0.5 mg PO DIRECTED PRN Insomnia 09/25/24 09/25/24 History polyethylene glycol 3350 17 gram 17 g PO BID #1 ea 10/01/24 Rx oral powder packet (Miralax) sennosides 8.6 mg-docusate sodium 1 tab PO BID #1 tab 10/01/24 Rx 50 mg tablet (Senokot-S) Hospital Stay Data Consultations 09/25/24 02:00 ED Decision to Admit Stat 09/25/24 05:06 Consult Orthopedic Spine Surgery Routine Diagnostic Imagining Performed Lumbar Spine CT 09/24/24 23:49 EXAM: CT lumbar spine wo con CLINICAL HISTORY: low back pain s/p fall last month TECHNIQUE: CT non-contrast scan of lumbar spine done. Axial images obtained with reformatted coronal and sagittal images and submitted for interpretation. One of the following dose reduction techniques were utilized for this exam: Automated exposure control, adjustment of the mA and/or kV according to patient size, use of iterative reconstruction. DLP: 1256.37 mGy.cm COMPARISON: No previous study for comparison. FINDINGS: Vertebrae: Defuse reduced bone density. Spondylodegenerative changes of the lumbar spine with marginal osteophytes formation and vertebral end plate degenerative changes. Mild scoliosis with convexity to the left. Reduced height of L3 and L1 vertebral body with sclerosis of the lower vertebral end plates denoting chronicity. Forward displacement of L4 over L5 vertebra. No fractures, lytic or sclerotic lesions. Intervertebral Discs: Degenerated T11-T12, T12-L1, L4-L5 and L5-F5spoyl in the form of reduced height. L1-L2, L2-L3: shows diffuse disc bulge indenting the thecal sac with mild encroachment upon both exit neural pathways and mild bilateral neural foraminal narrowing more on the left side. L3-L4 disc: shows diffuse disc bulge indenting the thecal sac with moderate encroachment upon both exit neural pathways and marked bilateral neural foraminal narrowing. L4-L5 disc: disc-osteophyte complex with diffuse disc bulge compressing the thecal sac. There is mild spinal canal narrowing with bilateral neural foraminal narrowing. Facet Joints: Osteoarthritic changes of the scanned facet joints more pronounced at L4-L5 and L5-S1 levels. Soft Tissues: Normal appearance of the paraspinal soft tissues. No abnormal masses, fluid collections, or signs of inflammation. Large hyperdense right renal stone measures about 2.5 cm in diameter, seen in the right renal pelvis. IMPRESSION: 1. Degenerative changes of the lumbar spine with multilevel disc disease as described. 2. Mild lumbar scoliosis with convexity to the left. 3. Mild spondylolisthesis of L4 over L5 vertebra. 4. Reduced height of L3 and L1 vertebral body with sclerosis of the lower vertebral end plates denoting chronicity, however, MRI is advised for better age assessment. 5. Osteoarthritic changes of the scanned facet joints more pronounced at L4-L5 and L5-S1 levels. 6. Osteopenia. 7. Large hyperdense right renal stone. Electronically signed by Ketan Rosenberg 09-25-2024 03:[address] 09/24/24 23:49 EXAM: CT pelvis wo con CLINICAL HISTORY: low back pain s/p fall last month TECHNIQUE: CT scan of the female pelvis was performed without the administration of intravenous contrast. Contiguous axial images were obtained from the iliac crests to the pubic symphysis. Coronal and sagittal reformatted images were also reviewed. One of the following dose reduction techniques was utilized for this exam. Automated exposure control, adjustment of the mA and/or kV according to patient size, and use of iterative reconstruction. COMPARISON: No previous studies are available for comparison. FINDINGS: Bones: Osteoarthritic changes of both sacroiliac joints in the form of mild subcortical sclerosis and narrwoing of joint space. Mild osteoarthritic changes of both hip joints with mild joint space narrowing. Bilateral facet joint arthropathy at L4-5 and L5-S1 disc level. Spondylolisthesis of L4 over L5 vertebral body. Small foci of sclerosis seen in both iliac crests and right pubic bone with no suspecious features, mostly benign (bone island). Osteophytes noted at both greater and ischial tubreosity Pelvic tilt is noted. Evidence of osteitis pubis. Normal alignment of the femoral heads, necks, and acetabula. No fractures, lytic, or sclerotic lesions. No evidence of avascular necrosis of the femoral heads. Uterus: non visualized uterus to be correlated with patient history of surgery. Adnexa: No adnexal masses or cysts identified. Bladder: The urinary bladder is adequately distended and appears normal. Rectum and Colon: Colonic fecal loading The rectum and colon are within normal limits without evidence of wall thickening . Pelvic Soft Tissues: The pelvic soft tissues are unremarkable without evidence of mass or abnormal fluid collection. Small umblical hernia measure about 20 x 5 mm cantaining fat. Additional Findings: No free fluid or lymphadenopathy was identified in the pelvis. IMPRESSION: 1. Pelvic tilt is noted, with no evidence of bone fracture. 2. Osteoarthritic changes of both sacroiliac joints 3. Mild osteoarthritic changes of both hip joints 4. Evidence of osteitis pubis. 5. Spondylolisthesis of L4 over L5 vertebral body. 6. Bilateral facet joint arthropathy at L4-5 and L5-S1 disc level. 7. Colonic fecal loading Electronically signed by Ketan Rosenberg 09-25-2024 02:47 AM Chest X-Ray 09/25/24 02:04 EXAM: XR chest 1V portable CLINICAL HISTORY: tachypnea TECHNIQUE: An X-ray image of the chest is obtained in AP projection. COMPARISON: No prior studies are available for comparison. FINDINGS: An inserted portacath at the left side of the chest wall with the tip located in the SVC. Pulmonary Parenchyma: Lungs are clear bilaterally. No evidence of consolidation, collapse, or focal opacities. No pulmonary nodules are identified. No evidence of pleural effusion or pleural thickening. Heart and Mediastinum: Heart size and shape are normal. No mediastinal widening or masses. No hilar or mediastinal lymphadenopathy. Bony Thorax: Bony thorax appears intact without fractures or deformities. Soft Tissues: Soft tissues overlying the chest wall are unremarkable. IMPRESSION: 1. An inserted portacath at the left side of the chest wall with the tip located in the SVC. 2. No acute cardiopulmonary abnormalities are identified. Electronically signed by Ketan Rosenberg 09-25-2024 03:33 AM Lumbar Spine MRI 09/25/24 03:29 EXAM: MR lumbar spine wo con CLINICAL HISTORY: Progressive back pain TECHNIQUE: Different pulse sequences were performed in different planes for the lumbar spine without contrast. Images were sent through PACs for diagnostic interpretation. COMPARISON: Prior recent CT 09/25/2024 00:15 FINDINGS: Vertebral bodies and alignment: L3 vertebral body transverse linear fracture line of low signals with reduced body height, along with edema, which denotes acute fracture. Evidence of L1 vertebral body wedging and collapse, with marked reduced vertebral body height with edema at STIR Sequence. Also, tehre are some hypointense sclerotic regions in the L1 vertebral body. These findings are suggestive of an acute fracture on top of the chronic compression fracture. 1st degree spondylolithesis of L4 over L5 vertebrae by markedly degenerated facet joints arthropathy. Advanced spondylodegenerative changes in the form of anterior osteophytosis, vertebral end plates altered marrow signals and multi-level degenerative discs changes with decreased signals and reduced heights. Mild lumbar scoliosis with convexity to the left. Intervertebral discs demonstrate diffuse degenerative changes. [id number] analysis: T12-L1: mild disc bulge 2 mm, indenting the theca causing mild spinal canal stenosis. L1-L2: left foraminal large herniation measuring 5 mm cuasing marked neural exit foramina stenosis and encroaching upon the exiting nerve root. L2-L3: Left foraminal herniation measuring 4 mm on top of disc bulge causing mild spinal canal stenosis and left moderate neural foraminal stenosis with milder right foramina stenosis. Indentation of the exiting nerve roots noted. L3-L4: biforaminal herniation measuring about 3 mm on both sides on top of disc bulge causing mild spinal canal stenosis and bilateral moderate neural foraminal stenosis with indentation of the exiting nerve roots. Associated facet joints arthropathy and ligamentum flavum hypertrophy adds to spinal canal and neural foraminal stenosis. L4-L5: There is 4.7 mm diffuse pseudodisc bulging due to listhesis, compressing the dural sac and both exiting nerve roots, causing mild spinal canal stenosis and moderate left and mild right neural foraminal stenosis. Associated facet joints arthropathy adds to foraminal stenosis L5-S1: diffuse disc bulge measuring 2.5 mm effacing the theca and causing bilateral moderate neural foraminal stenosis with indentation of the exiting nerve roots. Associated facet joints arthropathy adds to foraminal stenosis. No significant spinal canal stenosis. Spinal Cord and Nerve Roots: Conus medullaris terminates at the L1 level without abnormality. Soft Tissues: Paraspinal soft tissues appear normal without evidence of abnormal signal intensity or mass lesions. IMPRESSION: 1. Acute/subacute grade 1 compression fracture of the L3 vertebral body. 2. Grade 3 compression fracture of the L1 vertebral body with findings acute on top of chronic compression fracture. 3. 1st degree spondylolithesis of L4 over L5 vertebrae by markedly degenerated facet joints arthropathy. 4. Advanced spondylodegenerative changes. 5. Multilevel degenerative disc pathology with neural effect as described. 6. Mild lumbar scoliosis with convexity to the left. 7. Radiological findings correlated to the prior recent CT with no significant changes. Electronically signed by Ketan Rosenberg 09-25-2024 06:08 AM Pending Results Patient Have Any Pending Studies at Discharge: No Discharge Instructions Given to Patient (Per Discharging Provider) You were admitted to [facility] after presenting with worsening low back pain and were found to have 2 compression fractures of your lower vertebrae (L1 and L3). The bones, or vertebrae, that make up your spine are very strong, but sometimes a vertebra can fracture just like any other bone in your body. When a bone in the spine collapses, it is called a vertebral compression fracture. You were seen and evaluated by an orthopedic spinal surgeon, Dr. Bergman, whom recommended conservative treatment of these fractures with physical therapy, bracing and as needed pain control. The brace used to treat a compression fracture of the spine is designed to keep you from bending forward. It holds the spine in hyperextension (meaning more extension, or straightening, than normal). This takes most of the pressure off the fractured vertebral body, and allows the vertebrae to heal. It also protects the vertebra and stops further collapse of the bone. You worked with Physical Therapy and Occupational Therapy who recommended you go to rehab. You are being discharged to [facility] for rehabilitation services. You were due for chemotherapy during your admission. We discussed with your Oncologist, Dr Gaines, who decided to postpone your chemotherapy until after you complete rehab. MEDICATION CHANGES: We were holding your amlodipine due to some lower blood pressure readings. Please continue to hold this until you follow up with your PCP so they can monitor your blood pressure Please continue to take stool softeners while you are using opioids for pain control as they can cause constipation. SUMMARY OF TEST RESULTS: Lumbar spine MRI revealed compression fractures of L3 and L1 Pelvis CT revealed osteoarthritis of both sacroiliac joints, both hip joints, spondylolithesis (slipped disc) of L4 over L5, facet joint arthropathy (pain and stiffness) at L4-5 and L5-S1 PENDING TEST RESULTS: None RECOMMENDATIONS FOR FOLLOW-UP: Please follow up with your PCP after hospitalization and discuss resuming or discontinuing your amlodipine Please follow up with Dr Gaines on 10/29/2024 OTHER INSTRUCTIONS: Seek immediate medical care if: You have new or worse symptoms in your arms, legs, belly or buttocks. Symptoms may include: Numbness or tingling. Weakness. You lose bladder or bowel control. You have belly pain, bloating, vomiting or nausea. It has been a pleasure taking care of you. Please take care of yourself. If you have any questions regarding your recent hospitalization please contact [facility] and request Demond Little @ [phone]. Total Time Total Time Spent Total Time Spent (In Minutes): I spent a total of 35 minutes coordinating, documenting and providing care for this patient excluding time spent in the performance of separately billed services or time spent by another provider/QHP. Supervising Physician Co-Signing Physician Notes I have seen and discussed the case with the collaborating advanced practitioner. I agree with the above discharge summary. I have reviewed and confirmed the patients medical history, the findings on physical examination, and the patients diagnosis and treatment plan with Mirian HOLLY and agree with the information documented. In short, Ms. You is a 79 yo woman admitted for L1 and L3 compression fractures. Patient in TLSO brace. Reports pain much improved. d/c for rehab I spent a total of 10 minutes coordinating, documenting, and providing care for this patient excluding time spent in the performance of separately billed serv ices. All of the aforementioned completed outside of collaborating with the assigned advanced practitioner for a full treatment plan. I have reviewed the advanced practitioner's documentation, and I agree with, and take responsibility for the plan of care
--- NOTE | 2024-09-30 13:17 | Hospitalist Progress Note ---
Date of Service September 30, 2024 Assessment & Plan (1) Compression fracture of L3 vertebra: (2) Compression fracture of L1 vertebra: (3) AML (acute myeloblastic leukemia): (4) Pancytopenia: Plan 79 year old female with PMH significant for HTN, HLD, DMII, history of pericardial effusion [very trivial right lateral loculated pericardial effusion of no hemodynamic significance - TTE 05/2024], PSVT s/p ablation in 2004, GERD with esophagitis, primary osteoarthritis of both knees, persistent insomnia, spinal stenosis of lumbar region, sacroiliitis and AML currently undergoing chemotherapy with decitabine/venetoclax on infectious prophylaxis with acyclovir/voriconazole/Levaquin who presented to the ED on 09/25/24 due to worsening low back pain and is admitted for L1 and L3 compression fractures. Acute/subacute grade 1 compression fracture of the L3 vertebral body Grade 3 compression fracture of the L1 vertebral body with findings acute on top of chronic compression fracture Orthospine evaluated: --Very poor surgical candidate due to neutropenia --Physical therapy as tolerated --TLSO brace when OOB --Lift no more than 2 pounds --Avoid repetitive bending and twisting Pain control with tylenol, ibuprofen, and oxycodone PT/OT recommending rehab Plan to dc to [facility] tomorrow AML currently undergoing chemotherapy Pancytopenia Follows with [facility] Heme/Onc Dr. Gaines Currently undergoing monthly chemotherapy with decitabine/venetoclax Was due for next chemotherapy session on 09/29/2024 Dr. Gaines decided to delay chemo treatment until after rehab stay Continue chronic infectious prophylaxis with acyclovir, voriconazole, levofloxacin Continue neutropenic precautions HLD Continue statin HTN Holding amlodipine for intermittent softer BPs of 100s/50s Continue furosemide Anxiety/depression Continue citalopram DMII Hgb A1C 6.4% BSG ACHS and SSI while inpatient DVT Prophylaxis: TEDs/SCDs Code Status: FULL CODE PCP: [facility] Card Disposition: plan to dc tomorrow Patient seen in collaboration with Dr Montoya. Please see addendum. Update provided to patient's daughter, Shanna, via telephone. All questions and concerns addressed. I spent a total of 40 minutes coordinating, documenting and providing care for this patient excluding time spent in the performance of separately billed services or time spent by another provider/QHP. Admission and Anticipated Discharge Date Admission Date: September 25, 2024 Supervising Physician Co-Signing Physician Notes I have seen and discussed the case with the collaborating advanced practitioner. I agree with the above progress note. I have reviewed and confirmed the patients medical history, the findings on physical examination, and the patients diagnosis and treatment plan with Mirian HOLLY and agree with the information documented. In short, Ms. You is a 79 yo woman admitted for L1 and L3 compression fractures. Patient in TLSO brace. Reports pain much improved. Eager for rehab. I spent a total of 10 minutes coordinating, documenting, and providing care for this patient excluding time spent in the performance of separately billed services. All of the aforementioned completed outside of collaborating with the assigned advanced practitioner for a full treatment plan. I have reviewed the advanced practitioner's documentation, and I agree with, and take responsibility for the plan of care Subjective Patient seen sitting up in the chair with TLSO brace on Reports she is feeling better today, pain is better controlled No other acute concerns Review of Systems Review of Systems: All systems reviewed & are unremarkable except as noted in Subjective Physical Exam Physical Exam: General/Psych: WD/WN, sitting up in chair with TLSO brace on, conversing easily, NAD Head: normocephalic, atraumatic Eyes: normal inspection, PERRL, conjunctivae pink ENT: external ear and nose normal, oropharynx normal Neck: normal visual inspection, trachea midline Respiratory: normal respiratory effort, lungs clear to auscultation, no wheeze/rales/rhonchi, no accessory muscle use Cardiovascular: regular rate and rhythm, no murmur/rub/gallop, no JVD Extremities: no cyanosis or clubbing, normal peripheral pulses, no BLE edema Abdomen/GI: normal bowel sounds, soft, nontender Neurologic/MSK: A+Ox3, motor strength 5/5, moves all extremities Skin: no rashes, normal color, warm and dry Results & Data Results & Data Vital Signs (Past 12 Hours) Vital Signs Temp Pulse Resp BP Pulse Ox O2 Del Method 09/30/24 07:34 Room Air 09/30/24 07:26 36.7 C 73 16 124/69 95 Room Air Laboratory Results Short CBC 09/30/24 Range/Units 05:37 WBC 1.99 L (4.8-10.8) K/ul Hgb 8.3 L (12.0-16.0) g/dl Hct 26.3 L (37.0-47.0) % Plt Count 213 (130-400) K/uL I have independently reviewed and interpreted patient's labs including CBC Medications Administered Current Inpatient Medications Acetaminophen (Acetaminophen 500 Mg Tab) 1,000 mg PO Q8H [facility] Stop: 10/26/24 11:59 Last Admin: 09/30/24 12:18 Dose: 1,000 mg Acyclovir (Acyclovir 200 Mg Cap) 400 mg PO BID [place] Stop: 10/25/24 08:59 Last Admin: 09/30/24 08:21 Dose: 400 mg Amlodipine Besylate (Amlodipine Besylate 5 Mg Tab) 5 mg PO QAM [facility] Stop: 10/25/24 08:59 Last Admin: 09/26/24 07:53 Dose: 5 mg Atorvastatin Calcium (Atorvastatin 20 Mg Tab) 20 mg PO QAM [facility] Stop: 10/25/24 08:59 Last Admin: 09/30/24 08:21 Dose: 20 mg Citalopram Hydrobromide (Citalopram 20 Mg Tab) 10 mg PO QAM [facility] Stop: 10/25/24 08:59 Last Admin: 09/30/24 08:21 Dose: 10 mg Dextrose (Dextrose 50% 50 Ml Syringe) 25 - 50 ml IV UD PRN; Protocol PRN Reason: Hypoglycemia Protocol Stop: 10/25/24 05:05 Gabapentin (Gabapentin 100 Mg Cap) 100 mg PO BID [place] Stop: 10/25/24 08:59 Last Admin: 09/30/24 08:21 Dose: 100 mg Glucagon (Glucagon For Inj 1 Mg Vial) 1 mg SQ UD PRN; Protocol PRN Reason: Hypoglycemia Protocol Stop: 10/25/24 05:05 Glucose (Glucose 40% Gel 15 Gm Tube) 15 - 30 gm PO UD PRN; Protocol PRN Reason: Hypoglycemia Protocol Stop: 10/25/24 05:05 Glucose (Glucose 10 Tab/Tube) 4 - 8 tab PO UD PRN; Protocol PRN Reason: Hypoglycemia Protocol Stop: 10/25/24 05:05 Heparin Sodium (Porcine) (Heparin 100 Unit/Ml 5ml Flush) 5 ml FLUSH PRN PRN PRN Reason: Flush Stop: 10/27/24 10:16 Last Admin: 09/30/24 05:41 Dose: 5 ml Promethazine HCl (Phenergan) 6.25 mg in 50.25 mls @ 201 mls/hr IV Q6H PRN PRN Reason: Nausea And Vomiting Stop: 10/25/24 03:13 Ibuprofen (Ibuprofen 200 Mg Tab) 400 mg PO BID [facility] Stop: 10/28/24 13:29 Last Admin: 09/30/24 08:21 Dose: 400 mg Insulin Aspart (Insulin Aspart Per Unit Charge) 0 units SC ACHS [facility] Stop: 10/25/24 05:05 Last Admin: 09/30/24 12:18 Dose: Not Given Insulin Glargine (Lantus Per Unit Charge) 5 units SQ DAILY [facility] Stop: 10/25/24 08:59 Last Admin: 09/30/24 08:14 Dose: Not Given Levofloxacin (Levofloxacin 500 Mg Tab) 500 mg PO DAILY [facility]; Protocol Stop: 10/25/24 08:59 Last Admin: 09/30/24 08:20 Dose: 500 mg Lidocaine (Lidocaine 5% 1 Patch) 1 patch TD QAM [facility] Stop: 10/26/24 08:59 Last Admin: 09/30/24 08:21 Dose: 1 patch Lorazepam (Lorazepam 0.5 Mg Tab) 0.5 mg PO HS PRN PRN Reason: Insomnia Stop: 10/25/24 03:11 Lorazepam (Lorazepam 0.5 Mg Tab) 0.25 mg PO TID PRN PRN Reason: Anxiety Stop: 10/25/24 03:29 Last Admin: 09/27/24 15:23 Dose: 0.25 mg Miscellaneous (Remove Lidoderm Patch) 1 each N/A DAILY@2100 [facility] Stop: 10/25/24 15:59 Last Admin: 09/29/24 21:05 Dose: 1 each Miscellaneous (Carbohydrates For Hypoglycemia ) 15 - 30 gm PO UD PRN PRN Reason: Hypoglycemia Protocol Stop: 10/25/24 05:05 Oxycodone HCl (Oxycodone Hcl Ir 5 Mg Tab (Immediate Release)) 5 mg PO Q4H PRN PRN Reason: Pain Stop: 10/09/24 03:29 Last Admin: 09/30/24 10:49 Dose: 5 mg Polyethylene Glycol (Polyethylene (Miralax) 17 Gm Pack) 17 gm PO BID [place] Stop: 10/28/24 20:59 Last Admin: 09/30/24 08:20 Dose: 17 gm Senna/Docusate Sodium (Docusate Sodium/Senna 50/8.6mg Tab) 1 tab PO BID [place] Stop: 10/25/24 20:59 Last Admin: 09/30/24 08:20 Dose: 1 tab Simethicone (Simethicone 80 Mg Chew) 80 mg PO Q6H PRN PRN Reason: Flatulence Stop: 10/29/24 11:51 Last Admin: 09/29/24 12:07 Dose: 80 mg Sodium Biphosphate/Sodium Phosphate (Sod Phosphate/Sod Biphosphate Enema 132 Ml Btl) 132 ml [place] DAILY PRN PRN Reason: Constipation Stop: 10/28/24 09:03 Sodium Chloride (Sodium Chloride 0.65% Na Soln 45 Ml ([place])) 2 sprays NA DAILY PRN PRN Reason: Dryness Stop: 10/29/24 10:33 Voriconazole (Voriconazole 200 Mg Tablet) 200 mg PO Q12 [place] Stop: 10/25/24 08:59 Last Admin: 09/30/24 08:20 Dose: 200 mg (1) Compression fracture of L3 vertebra Encounter type: initial encounter Qualified Code(s): S32.030A - Wedge compression fracture of third lumbar vertebra, initial encounter for closed fracture (2) Compression fracture of L1 vertebra Encounter type: initial encounter Qualified Code(s): S32.010A - Wedge compression fracture of first lumbar vertebra, initial encounter for closed fracture (3) AML (acute myeloblastic leukemia) Leukemia Active/Remission status: without remission Qualified Code(s): C92.00 - Acute myeloblastic leukemia, not having achieved remission
[2024-10-01 00:28] VITALS: RESP 18
[2024-10-01 07:00] VITALS: BP 138/70; PULSE 75; TEMP 98.1; O2SAT 95
[2024-10-01 07:30] LABS: Hematocrit (blood only) 25.6 % (37.0-47.0); Hemoglobin 8.2 g/dl (12.0-16.0); Mean Corpuscular Hemoglobin 31.8 pg (25.0-34.0); Mean Corpuscular Volume 99.2 fL (80.0-100.0); Platelet Count 240 K/uL (130-400); RDW Standard Deviation 54.0 fL (36.4-46.3); Red Blood Count 2.58 M/uL (4.20-5.40); White Blood Count 2.25 K/ul (4.8-10.8)
[2024-10-01 07:57] LABS: Anisocytosis Present; Immature Granulocytes # (auto) 0.04 K/uL (0.01-0.20); Immature Granulocytes % (auto) 1.8 %; Ovalocytes 1+
[2024-10-01] MEDS: ONDANSETRON 4 MG OD TAB PO STA (08:27)
[2024-10-01] MEDS: LORazepam 0.5 MG TAB PO STA (08:33)
== END 2024-10-01 09:59 | DRG 542 ==
LOC: ED 23:34 → 3E 09-25 03:11 → SUATTDRO 09-25 03:11 → 3E 09-25 04:39

== ENCOUNTER 2024-10-07 19:08 | Inpatient (IN) ==
--- NOTE | 2024-10-07 19:33 | Emergency Department Note ---
History of Present Illness General Chief complaint: Back Injury/Pain Stated complaint: BACK PAIN, HX OF FX Time Seen by Provider: 10/07/24 19:18 History of Present Illness Maximum Pain Intensity: 9 This is a 79-year-old female that presents to the emergency department via EMS with complaints of "back pain". The patient notes that she was seen here a little over a week ago and diagnosed with lumbar compression fractures. She was discharged from the hospital here and has [facility]. Pain worsened today therefore prompting arrival. The patient denies any fever. No nausea or vomiting. She notes that the back pain is in the low back itself. It does not radiate into the abdomen or down the legs. No bowel or bladder incontinence. No numbness or tingling in genital region. No leg weakness. Patient notes that she still has been able to ambulate. Home Medications Medication Instructions Recorded Confirmed Type acetaminophen 500 mg tablet 1,000 mg PO Q8 PRN .FEVER/MILD 11/17/19 10/07/24 History PAIN 1-4 citalopram 10 mg tablet 10 mg PO QAM 01/09/24 10/07/24 History gabapentin 100 mg capsule 100 mg PO BID 01/09/24 10/07/24 History voriconazole 200 mg tablet 200 mg PO Q12 01/30/24 10/07/24 History ondansetron HCl 4 mg tablet 4 mg PO Q6H PRN Nausea And 02/02/24 10/07/24 Rx Vomiting #30 tabs amlodipine 10 mg tablet 5 mg PO QAM 08/26/24 10/07/24 History furosemide 20 mg tablet 10 mg PO Q OTHER DAY 08/26/24 10/07/24 History potassium chloride 10 mEq 10 meq PO Q OTHER DAY 08/26/24 10/07/24 History tablet,extended release atorvastatin 20 mg tablet 20 mg PO HS 09/10/24 10/07/24 History decitabine 50 mg intravenous 0 mg IV MONTHLY 09/10/24 10/07/24 History solution levofloxacin 500 mg tablet 500 mg PO QAM 09/25/24 10/07/24 History lorazepam 0.5 mg tablet 0.5 mg PO DAILY PRN Insomnia 09/25/24 10/07/24 History polyethylene glycol 3350 17 gram 17 g PO BID #1 ea 10/01/24 10/07/24 Rx oral powder packet (Miralax) sennosides 8.6 mg-docusate sodium 1 tab PO BID #1 tab 10/01/24 10/07/24 Rx 50 mg tablet (Senokot-S) acyclovir 400 mg tablet 400 mg PO BID 10/07/24 10/07/24 History buspirone 5 mg tablet 5 mg PO AMHS 10/07/24 10/07/24 History melatonin 5 mg tablet 5 mg PO HS PRN Insomnia 10/07/24 10/07/24 History oxycodone 5 mg tablet 5 mg PO Q6H PRN pain 5-8 10/07/24 10/07/24 History oxycodone 5 mg tablet 10 mg PO Q6H PRN pain 9-10 10/07/24 10/07/24 History tramadol 50 mg tablet 50 mg PO BID PRN pain 5-10 10/07/24 10/07/24 History Allergies Allergy/AdvReac Type Severity Reaction Status Date / Time No Known Allergies Allergy Mild Verified 09/17/24 11:27 Past Med/Surg History Problem List (Updated 10/08/24 @ 01:06 by Jose R Louie MD) Severe back pain Compression fracture of L3 vertebra Neutropenia (Acute) Compression fracture of lumbar vertebra (Acute) Back pain (Acute) Encounter for pre-operative examination Physical deconditioning Anxiety Diabetes mellitus, type II Dyslipidemia AML (acute myeloblastic leukemia) Pancytopenia (Acute) Biceps tendinitis of right shoulder Lumbar spondylosis 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, left Medical History Compression fracture of L1 vertebra Pericardial effusion History of - 02/2024- evaluated by [facility]- felt related to AML and/or chemo treatments- repeat ECHOs showed improvement (most recent ECHO 05/2024) Lumbar spondylosis Biceps tendinitis of right shoulder Anxiety HTN (hypertension) Diabetes mellitus type II, controlled no meds most recent Hgb A1C 12/2024 was 7.5 History of cellulitis 12/2023 per records Hx of acute respiratory failure (01/2024) had been at [facility], transferred to [facility]- resolved AML (acute myeloblastic leukemia) (12/2023) [facility]- dr. oliver- gets chemo 1 week every month unless wbc is off, last chemo was week of august 31. has blood drawn weekly at [facility] SVT (supraventricular tachycardia) (2004) History of SVT- s/p 2004- no issues since. Sciatica Elevated cholesterol Controlled with statin Surgical History History of insertion of tunneled central venous catheter (CVC) with port (01/2024) right side armstrong cath placed in [facility] History of left knee replacement (2019) History of bone marrow biopsy (07/17/24) x3- [facility] and [facility] S/P epidural steroid injection sciatica History of appendectomy (1967) H/O cardiac radiofrequency ablation (2004) 2004 H/O: hysterectomy (1989) [facility] with BSO Family History Father Cancer Other Coronary heart disease Diabetes Leukemia No family history of adverse response to anesthesia Social History Smoking Status: Never smoker Second Hand Exposure: No; Do You Dip or Chew Tobacco: No; Hx Alcohol Use: Yes Alcohol type: wine Hx Substance Use: No Preferred Language: Hungarian Communication Ability: Effective Visual Impairment: No Limitations Dairy Technologist Required: No Beliefs That Will Affect Care: None marital status: Current Living Situation: Family Current Living Situation Comment: lives w/daughter & grandson Other Information That Helps Us Care for You: No Feels Safe at Home: Yes Safety Concerns: Feels Safe At This Time Assistive Devices: Cane and Walker Assistive Devices Comment: was walking w/brace only, but started using cane & wheelchair due to pain Review of Systems A total of 10 systems reviewed and were otherwise negative Physical Exam Vital Signs Vital Signs - 24 hr 10/07/24 19:00 10/07/24 19:00 10/07/24 19:18 Temperature 37.4 C Temperature Source Oral Pulse Rate 80 Pulse Rate from SpO2 Sensor Respiratory Rate 18 Respiratory Effort / Characteristics Non-Labored Respiratory Depth Normal Blood Pressure 135/55 L 135/55 L Blood Pressure Mean 81 76 Pulse Oximetry 96 Oxygen Delivery Method Room Air Sepsis Recent Fever Within 48 Hours No Sepsis New/Unexplained Change in Mental Status No Sepsis Action Taken by Nursing No Action Required 10/07/24 19:24 10/07/24 19:27 10/07/24 19:30 Temperature Temperature Source Pulse Rate 78 82 76 Pulse Rate from SpO2 Sensor 76 76 Respiratory Rate 23 24 Respiratory Effort / Characteristics Respiratory Depth Blood Pressure Blood Pressure Mean Pulse Oximetry 97 98 Oxygen Delivery Method Sepsis Recent Fever Within 48 Hours Sepsis New/Unexplained Change in Mental Status Sepsis Action Taken by Nursing 10/07/24 19:31 10/07/24 19:42 10/07/24 19:57 Temperature Temperature Source Pulse Rate 76 79 Pulse Rate from SpO2 Sensor 75 79 Respiratory Rate 21 22 Respiratory Effort / Characteristics Respiratory Depth Blood Pressure Blood Pressure Mean Pulse Oximetry 97 98 Oxygen Delivery Method Room Air Sepsis Recent Fever Within 48 Hours Sepsis New/Unexplained Change in Mental Status Sepsis Action Taken by Nursing 10/07/24 21:21 10/07/24 21:33 10/07/24 21:43 Temperature Temperature Source Pulse Rate 75 71 Pulse Rate from SpO2 Sensor 74 71 Respiratory Rate 23 23 Respiratory Effort / Characteristics Respiratory Depth Blood Pressure 148/67 H Blood Pressure Mean 103 Pulse Oximetry 98 98 Oxygen Delivery Method Sepsis Recent Fever Within 48 Hours Sepsis New/Unexplained Change in Mental Status Sepsis Action Taken by Nursing 10/07/24 22:00 10/07/24 22:00 10/07/24 22:00 Temperature Temperature Source Pulse Rate Pulse Rate from SpO2 Sensor Respiratory Rate Respiratory Effort / Characteristics Respiratory Depth Blood Pressure 133/68 133/68 133/68 Blood Pressure Mean 112 112 112 Pulse Oximetry Oxygen Delivery Method Sepsis Recent Fever Within 48 Hours Sepsis New/Unexplained Change in Mental Status Sepsis Action Taken by Nursing 10/07/24 22:00 10/07/24 22:34 10/07/24 22:45 Temperature Temperature Source Pulse Rate 71 75 Pulse Rate from SpO2 Sensor 72 Respiratory Rate 21 21 Respiratory Effort / Characteristics Respiratory Depth Blood Pressure 152/68 H Blood Pressure Mean 96 Pulse Oximetry 95 95 Oxygen Delivery Method Room Air Sepsis Recent Fever Within 48 Hours Sepsis New/Unexplained Change in Mental Status Sepsis Action Taken by Nursing 10/07/24 23:22 Temperature Temperature Source Pulse Rate 75 Pulse Rate from SpO2 Sensor Respiratory Rate Respiratory Effort / Characteristics Respiratory Depth Blood Pressure Blood Pressure Mean Pulse Oximetry Oxygen Delivery Method Sepsis Recent Fever Within 48 Hours Sepsis New/Unexplained Change in Mental Status Sepsis Action Taken by Nursing VITAL SIGNS - Vital signs and nursing notes were reviewed. Stable and afebrile. GENERAL - 79-year-old female appearing her stated age who is in no acute distress. Communicates well with provider and answers questions appropriately. SKIN - Without rashes. Facial flushing noted. HEAD - NC/AT. EYES - PERRL with EOMI bilaterally. Sclera anicteric. EARS - No deformities of external structures noted on gross examination bilaterally. External auditory canals without discharge or otorrhea. Tympanic membranes pearly canales without retraction or bulging. No fluid or purulent material visualized behind the TM. Handle of malleus, umbo, cone of light, pars tensa/flaccid all easily visualized. NOSE - Midline and without cyanosis. No epistaxis or purulent drainage noted. Septum midline without deviation or septal hematoma noted. MOUTH/OROPHARYNX - Without perioral cyanosis. NECK - Neck with FROM. No nuchal rigidity. LUNGS - CTA CARDIAC - RRR ABDOMEN - Abdominal contour normal without pulsations or visible masses. BS normoactive all four quadrants. No tenderness, palpable masses, hepatosplenomegaly, or ascites noted. MSKtenderness over the L-spine noted. No erythema. No edema. EXTREMITIES - No clubbing or peripheral cyanosis. +5/5 strength noted in UE/LE bilaterally. NEUROLOGIC - Cranial nerves grossly intact. PSYCH -alert, oriented and pleasant on exam Course Administered Medications Acyclovir (Acyclovir 400 Mg Tab) 400 mg PO BID [facility] Stop: 11/07/24 08:59 Last Admin: 10/08/24 08:34 Dose: 400 mg Documented By: HUNTER Amlodipine Besylate (Amlodipine Besylate 5 Mg Tab) 5 mg PO QAM [facility] Stop: 11/07/24 08:59 Last Admin: 10/08/24 08:36 Dose: 5 mg Documented By: HUNTER Buspirone HCl (Buspirone 5 Mg Tab) 5 mg PO AMHS [facility] Stop: 11/07/24 08:59 Last Admin: 10/08/24 08:36 Dose: 5 mg Documented By: HUNTER Citalopram Hydrobromide (Citalopram 20 Mg Tab) 10 mg PO QAM [facility] Stop: 11/07/24 08:59 Last Admin: 10/08/24 08:34 Dose: 10 mg Documented By: HUNTER Enoxaparin Sodium (Enoxaparin Inj 40 Mg/0.4 Ml Syr) 40 mg SQ Q24H [facility] Stop: 11/07/24 08:59 Last Admin: 10/08/24 08:37 Dose: 40 mg Documented By: HUNTER Furosemide (Furosemide 20 Mg Tab) 10 mg PO Q2D [facility] Stop: 11/07/24 08:59 Last Admin: 10/08/24 08:35 Dose: 10 mg Documented By: ISABEL Gabapentin (Gabapentin 100 Mg Cap) 100 mg PO BID [facility] Stop: 11/07/24 08:59 Last Admin: 10/08/24 08:35 Dose: 100 mg Documented By: HUNTER Insulin Aspart (Insulin Aspart Per Unit Charge) 0 units SC ACHS [facility] Stop: 11/07/24 07:29 Last Admin: 10/08/24 12:47 Dose: Not Given Documented By: Admin: 10/08/24 08:56 Dose: Not Given Documented By: HUNTER Levofloxacin (Levofloxacin 500 Mg Tab) 500 mg PO QAM [facility]; Protocol Stop: 11/07/24 08:59 Last Admin: 10/08/24 08:36 Dose: 500 mg Documented By: HUNTER Lidocaine (Lidocaine 5% 1 Patch) 1 patch TD QAM [facility] Stop: 11/07/24 08:59 Last Admin: 10/08/24 08:36 Dose: 1 patch Documented By: HUNTER Oxycodone HCl (Oxycodone Hcl Ir 5 Mg Tab (Immediate Release)) 10 mg PO Q6H PRN PRN Reason: pain 9-10 Stop: 10/22/24 02:59 Last Admin: 10/08/24 08:42 Dose: 10 mg Documented By: HUNTER Polyethylene Glycol (Polyethylene (Miralax) 17 Gm Pack) 17 gm PO BID [facility] Stop: 11/07/24 08:59 Last Admin: 10/08/24 08:43 Dose: 17 gm Documented By: HUNTER Potassium Chloride (Potassium Chloride 10 Meq Tabcr) 10 meq PO Q2D [facility] Stop: 11/07/24 08:59 Last Admin: 10/08/24 08:43 Dose: 10 meq Documented By: HUNTER Senna/Docusate Sodium (Docusate Sodium/Senna 50/8.6mg Tab) 1 tab PO BID [facility] Stop: 11/07/24 08:59 Last Admin: 10/08/24 08:43 Dose: 1 tab Documented By: HUNTER Voriconazole (Voriconazole 200 Mg Tablet) 200 mg PO Q12 [facility] Stop: 11/07/24 08:59 Last Admin: 10/08/24 08:35 Dose: 200 mg Documented By: HUNTER Discontinued Medications Acetaminophen (Acetaminophen Susp 160 Mg/5 Ml Btl) 500 mg PO NOW STA Stop: 10/07/24 21:24 Last Admin: 10/07/24 21:32 Dose: Not Given Documented By: RICK Acetaminophen (Acetaminophen 500 Mg Tab) 500 mg PO NOW STA Stop: 10/07/24 21:28 Last Admin: 10/07/24 21:32 Dose: 500 mg Documented By: RICK Cyclobenzaprine HCl (Cyclobenzaprine Hcl 5 Mg Tab) 5 mg PO NOW STA Stop: 10/08/24 01:46 Last Admin: 10/08/24 01:53 Dose: 5 mg Documented By: MANUEL Hydromorphone HCl (Hydromorphone Inj 0.5 Mg/0.5 Ml Syr) 0.5 mg IV NOW STA Stop: 10/08/24 01:46 Last Admin: 10/08/24 02:32 Dose: 0.5 mg Documented By: MANUEL Potassium Chloride (K Liam / Wtr) 10 meq in 100 mls @ 100 mls/hr IV Q1H [place] Stop: 10/07/24 23:14 Last Infusion: 10/08/24 00:15 Dose: Infused Documented By: Admin: 10/07/24 22:45 Dose: 100 mls/hr Documented By: Infusion: 10/07/24 22:32 Dose: Infused Documented By: Admin: 10/07/24 21:32 Dose: 100 mls/hr Documented By: RICK Cefepime HCl (Maxipime 2000mg) 2,000 mg in 20 mls @ 5 mls/min IV NOW STA; Protocol Stop: 10/07/24 21:27 Last Admin: 10/07/24 21:32 Dose: 5 mls/min Documented By: RICK Famotidine (Pepcid 20mg Iv Push) 20 mg in 5 mls @ 2.5 mls/min IV NOW STA Stop: 10/08/24 01:46 Last Admin: 10/08/24 01:53 Dose: 2.5 mls/min Documented By: MANUEL Cefepime HCl (Maxipime 2000mg) 2,000 mg in 20 mls @ 5 mls/min IV Q8H [place]; Protocol Stop: 10/15/24 05:59 Last Admin: 10/08/24 06:03 Dose: 5 mls/min Documented By: HARLEY Sodium Chloride (Nss) 1,000 mls @ 80 mls/hr IV .[id number] [place] Stop: 10/08/24 15:29 Last Infusion: 10/08/24 16:10 Dose: Infused Documented By: Admin: 10/08/24 03:36 Dose: 80 mls/hr Documented By: ARTEMIO Potassium Chloride (K Liam / Wtr) 10 meq in 100 mls @ 100 mls/hr IV Q1H [place] Stop: 10/08/24 06:59 Last Infusion: 10/08/24 09:08 Dose: Infused Documented By: Admin: 10/08/24 08:00 Dose: 100 mls/hr Documented By: Infusion: 10/08/24 07:08 Dose: Infused Documented By: Admin: 10/08/24 06:08 Dose: 100 mls/hr Documented By: Infusion: 10/08/24 06:06 Dose: Infused Documented By: Admin: 10/08/24 04:58 Dose: 100 mls/hr Documented By: Infusion: 10/08/24 04:39 Dose: Infused Documented By: Admin: 10/08/24 03:39 Dose: 100 mls/hr Documented By: ARTEMIO Lorazepam (Lorazepam 0.5 Mg Tab) 0.5 mg PO NOW STA Stop: 10/08/24 00:19 Last Admin: 10/08/24 00:26 Dose: 0.5 mg Documented By: DORON Morphine Sulfate (Morphine Sulfate 2 Mg/Ml Carp) 1 mg IV NOW STA Stop: 10/07/24 20:02 Last Admin: 10/07/24 20:37 Dose: 1 mg Documented By: RICK Ondansetron HCl (Ondansetron Inj 2 Mg/Ml 2 Ml Vial) 4 mg IV NOW STA Stop: 10/07/24 20:02 Last Admin: 10/07/24 20:37 Dose: 4 mg Documented By: RICK Potassium Chloride (Potassium Chloride Crtab 20 Meq Tabcr) 40 meq PO NOW STA Stop: 10/08/24 00:12 Last Admin: 10/08/24 00:26 Dose: 40 meq Documented By: EMB Medical Decision Making Laboratory Data 10/08/24 06:57 10/08/24 06:57 Lab Results 10/07/24 10/07/24 10/07/24 Range/Units 20:09 21:20 22:00 WBC 6.53 (4.8-10.8) K/ul RBC 3.17 L (4.20-5.40) M/uL Hgb 10.1 L (12.0-16.0) g/dl Hct 30.1 L (37.0-47.0) % MCV 95.0 (80.0-100.0) fL MCH 31.9 (25.0-34.0) pg MCHC 33.6 (32.0-36.0) g/dL RDW Std Deviation 54.4 H (36.4-46.3) fL RDW Coeff of Patti 15.5 H (11.5-14.5) % Plt Count 340 (130-400) K/uL MPV 9.3 L (9.4-12.4) fL Immature Gran % (Auto) 1.2 % Neut % (Auto) 61.0 % Lymph % (Auto) 24.3 % [place] % (Auto) 13.3 % Eos % (Auto) 0.0 % Baso % (Auto) 0.2 % Neut # (Auto) 3.98 (1.40-6.50) K/uL Lymph # (Auto) 1.59 (1.20-3.40) K/uL [place] # (Auto) 0.87 H (0.11-0.59) K/uL Eos # (Auto) 0.00 (0.00-0.50) K/uL Baso # (Auto) 0.01 (0.00-0.20) K/uL Immature Gran # (Auto) 0.08 (0.01-0.20) K/uL Absolute Nucleated RBC 0.02 (0.00-0.12) K/uL Nucleated RBC % (auto) 0.3 % PT 11.6 (9.0-12.0) Seconds INR 1.1 (0.9-1.1) APTT 32 H (21-31) Seconds PTT Ratio 1.2 Sodium 139 (136-145) mmol/L Potassium 2.6 L (3.5-5.1) mmol/L Chloride 99 (98-107) mmol/L Carbon Dioxide 27 (21-32) mmol/L Anion Gap 13 H (3-11) BUN 11 (6-23) mg/dl Creatinine 0.48 L (0.6-1.2) mg/dl Est Cr Clr Drug Dosing Not Reportable eGFR 97.49 BUN/Creatinine Ratio 22.9 H (10-20) Glucose 164 H (70-99(Fasting)) mg/dl Calcium 8.8 (8.6-10.3) mg/dl Total Bilirubin 0.3 (0.2-1.0) mg/dl AST 21 (13-39) U/L ALT 19 (7-52) U/L Alkaline Phosphatase 101 (34-104) U/L Total Protein 7.3 (6.0-8.3) gm/dl Albumin 3.1 L (3.4-5.0) gm/dl Globulin 4.2 H (2.5-4.0) gm/dl Albumin/Globulin Ratio 0.7 L (0.9-2) Lipase 46 (11-82) U/L Procalcitonin 2.51 H (0-0.5) ng/ml Urine Color Yellow Urine Appearance Clear (Clear) Urine pH 8.5 H (4.5-7.5) Ur Specific [place] 1.015 (1.000-1.030) Urine Protein Negative (Negative) Urine Glucose (UA) Negative (Negative) Urine Ketones Negative (Negative) Urine Blood Negative (Negative) Urine Nitrite Negative (Negative) Urine Bilirubin Negative (Negative) Urine Urobilinogen Negative (Negative) Ur Leukocyte Esterase Negative (Negative) Urine Comment Adenovirus (PCR) Not Detected (NotDetected) B. pertussis DNA (PCR) Not Detected (NotDetected) B.parapertussis DNA PCR Not Detected (NotDetected) C. pneumoniae DNA (PCR) Not Detected (NotDetected) Coronavirus OC43 (PCR) Not Detected (NotDetected) Coronavirus HKU1 (PCR) Not Detected (NotDetected) Coronavirus 229E (PCR) Not Detected (NotDetected) SARS-CoV-2 (PCR) Not Detected (NotDetected) Coronavirus NL63 (PCR) Not Detected (NotDetected) Human Metapneumovir PCR Not Detected (NotDetected) Influenza Type A (PCR) Not Detected (NotDetected) Influenza Type B (PCR) Not Detected (NotDetected) M. pneumoniae (PCR) Not Detected (NotDetected) Parainfluenza 1 (PCR) Not Detected (NotDetected) Parainfluenza 2 (PCR) Not Detected (NotDetected) Parainfluenza 3 (PCR) Not Detected (NotDetected) Parainfluenza 4 (PCR) Not Detected (NotDetected) RSV (PCR) Not Detected (NotDetected) Entero/Rhino (PCR) Not Detected (NotDetected) Imaging Data Radiologist's Impression: Abdomen/Pelvis CT 10/07/24 19:31 Exam(s): CT ABDOMEN + PELVIS Without Contrast EXAM: CT Abdomen and Pelvis Without Intravenous Contrast CLINICAL HISTORY: Reason for exam: low back pain, recent fx in spine. TECHNIQUE: Axial computed tomography images of the abdomen and pelvis without intravenous contrast. CTDI is 20.82 mGy and DLP is 705.94 mGy-cm. Automated exposure control was utilized for the study. A dose lowering technique was utilized adhering to the principles of ALARA. COMPARISON: CT lumbar spine 09/25/2024, CT abdomen and pelvis 02/24/2024 FINDINGS: Lung bases: Unremarkable. ABDOMEN: Liver: Unremarkable. Gallbladder and bile ducts: Unremarkable. No calcified stones. No ductal dilation. Pancreas: Unremarkable. No ductal dilation. Spleen: Unremarkable. No splenomegaly. Adrenals: Unremarkable. No mass. Kidneys and ureters: Large calculus right renal pelvis measuring 3 cm. No associated hydronephrosis. Additional right kidney caliceal stone measuring 12 mm. Left kidney and collecting system are unremarkable. Stomach and bowel: Unremarkable. No mucosal thickening. No bowel obstruction. PELVIS: Appendix: Appendix not visualized. Bladder: Unremarkable. No stones. Reproductive: Hysterectomy. ABDOMEN and PELVIS: Intraperitoneal space: Unremarkable. No free air, significant free fluid, or fluid collection. Bones/joints: Acute or subacute 70% L1 compression fracture with 7 mm retropulsion producing [id number] spinal canal stenosis. Acute/subacute 30% L3 compression fracture without retropulsion. No other fractures. Osteopenia. Disc and facet degeneration with grade 1 anterolisthesis of L4. No dislocation. Soft tissues: Small fat containing umbilical hernia. Vasculature: Atherosclerosis. No abdominal aortic aneurysm. Lymph nodes: Unremarkable. No enlarged lymph nodes. IMPRESSION: 1. Acute/subacute 70% L1 compression fracture with 7 mm retropulsion producing [id number] spinal canal stenosis. 2. Acute/subacute 30% L3 compression fracture without retropulsion. 3. Large calculus right renal pelvis measuring 3 cm. No associated hydronephrosis. Electronically signed by: Raoul Mari M.D. 10/07/24 21:[address] 10/07/24 19:31 Exam(s): CT L SPINE EXAM: CT Lumbar Spine Without Intravenous Contrast CLINICAL HISTORY: Reason for exam: low back pain, recent fx in spine. TECHNIQUE: Axial computed tomography images of the lumbar spine without intravenous contrast. CTDI is 20.82 mGy and DLP is 705.94 mGy-cm. Automated exposure control was utilized for the study. A dose lowering technique was utilized adhering to the principles of ALARA. COMPARISON: CT lumbar spine 09/25/2024; CT abdomen and pelvis 02/24/24 FINDINGS: There is an acute/subacute 70% L1 compression fracture with 7 mm retropulsion producing moderate to severe spinal canal stenosis. There is an acute/subacute 30% L3 compression fracture without retropulsion. Vertebral body heights are otherwise maintained. Bones are osteopenic. There is disc and facet degeneration at multiple lumbar levels. L1-L2: Moderate-severe spinal canal stenosis due to retropulsed bone related to the L1 fracture. Moderate bilateral foraminal narrowing. L2-L3: Disc bulging mildly narrowing the spinal canal. Foramina are patent. L3-L4: Compression fracture at L3. Disc bulging and ligamentum flavum thickening. Mild spinal canal narrowing. Mild right and moderate left foraminal narrowing. L4-L5: Disc and facet degeneration with grade 1 anterolisthesis of L4. Severe spinal canal stenosis. Severe right foraminal narrowing. Left foramen is patent. L5-S1: Disc and facet degeneration. No significant spinal canal stenosis. Moderate left foraminal narrowing. Mild right foraminal narrowing. Sacroiliac joints are normally aligned. IMPRESSION: 1. Acute or subacute compression fractures at L1 and L3 as detailed above, similar in appearance to 09/25/2024, but new from 02/24/2024. 2. Multilevel canal and foraminal narrowing as detailed above. Electronically signed by: Raoul Mari M.D. 10/07/24 21:[address] 10/07/24 19:31 Exam(s): CT T SPINE EXAM: CT Thoracic Spine Without Intravenous Contrast CLINICAL HISTORY: Reason for exam: low back pain, recent fx in spine. TECHNIQUE: Axial computed tomography images of the thoracic spine without intravenous contrast. CTDI is 21 mGy and DLP is 1288 mGy-cm. Automated exposure control was utilized for the study. A dose lowering technique was utilized adhering to the principles of ALARA. COMPARISON: No relevant prior studies available. FINDINGS: Vertebrae: No acute fracture. No traumatic subluxation. Discs/spinal canal/neural foramina: Lower thoracic disc degeneration. No spinal canal stenosis. Soft tissues: Unremarkable. IMPRESSION: No acute findings in the thoracic spine. Electronically signed by: Raoul Mari M.D. 10/07/24 21:56 PM Chest X-Ray 10/07/24 21:23 Exam(s): XR CXR 1 VIEW EXAM: XR Chest, 1 View CLINICAL HISTORY: Reason for exam: back pain. TECHNIQUE: Frontal view of the chest. COMPARISON: No relevant prior studies available. FINDINGS: Lungs: No consolidation. Pleural space: No significant pleural effusion. No pneumothorax. Heart: No cardiomegaly or pulmonary vascular congestion. Bones/joints: No acute fracture. No dislocation. Tubes, lines and devices: Left IJ approach port catheter with tip in the proximal SVC. IMPRESSION: No acute findings in the chest. Electronically signed by: Raoul Mari M.D. 10/07/24 21:57 PM MDM Narrative Patient was seen and evaluated as above in room C10. Review was performed of triage nursing notes and vital signs. After obtaining a thorough history and physical examination the above work up was performed. Patient presents to us today for evaluation of low back pain. This has been ongoing and acutely worsened today. Patient does have 2 known compression fractures. Options of care were discussed with the patient. IV access was established. Labs were drawn. There is no leukocytosis. There is stable anemia noted. No emergent metabolic disturbance but will note hypokalemia 2.6 and therefore IV supplementation was ordered. No evidence of kidney or liver failure. Lipase normal. Procalcitonin was added and was elevated 2.51. Blood cultures pending. Empiric IV cefepime was added as the patient does have a flushed appearance, and appears to be quite tired and was recently was neutropenic. I concerned about an infection. The urine does not appear to be a source of infection. The chest x-ray was clear. CT scan of the abdomen pelvis plus T and L-spine imaging was obtained and is as above. Fractures were noted in the spine at L1 and L3 but similar in appearance to the imaging performed just over a week ago. No new fractures seen. There is no obstruction on the CT scan of the abdomen/pelvis. At this time I do believe that further evaluation and management in the inpatient setting is warranted. Case discussed with the hospitalist service. Please refer to further documentation regarding her stay. The patient does not have any neurovascular deficits at this time. She has good extremity strength. No radicular symptoms. I do not suspect emergent cord compression at this time. Low suspicion for epidural hematoma. GCS: 15 In the evaluation and treatment of this patient the following differential diagnoses were entertained: UTI, bowel obstruction, discitis, osteomyelitis, cord compression, among others Impression & Plan Compression fracture of lumbar vertebra, Back pain Discharge Plan Visit Data Chief Complaint: Back Injury/Pain Stated Complaint: BACK PAIN, HX OF FX ED Provider: James Buckner ED Midlevel Provider: Derek Parra Discharge Problem: Compression fracture of lumbar vertebra, Back pain Patient Disposition: Admitted As Inpatient Condition: Fair Discharge Instructions Interventions: ED Discharge Assessment Last Done: 10/08/24 02:40 Addendum October 08, 2024 17:00 I was consulted by the Advanced Practice Provider and was substantively involved in the patient's visit.This includes aspects of the HPI, MDM, diagnostic interpretations, and disposition/plan. I discussed the case with the VASYL and agree with the findings and plan as documented in VASYL Fidel's note.
[2024-10-07] MEDS: MoRPHine SULFATE 2 MG/ML CARP IV STA (20:37)
[2024-10-07] MEDS: ONDANSETRON INJ 2 MG/ML 2 ML VIAL IV STA (20:37)
[2024-10-07 20:39] LABS: Hematocrit (blood only) 30.1 % (37.0-47.0); Hemoglobin 10.1 g/dl (12.0-16.0); Immature Granulocytes # (auto) 0.08 K/uL (0.01-0.20); Immature Granulocytes % (auto) 1.2 %; Mean Corpuscular Hemoglobin 31.9 pg (25.0-34.0); Mean Corpuscular Volume 95.0 fL (80.0-100.0); Platelet Count 340 K/uL (130-400); RDW Standard Deviation 54.4 fL (36.4-46.3); Red Blood Count 3.17 M/uL (4.20-5.40); White Blood Count 6.53 K/ul (4.8-10.8)
[2024-10-07 20:56] LABS: Alanine Aminotransferase 19 U/L (7-52); Albumin Globulin Ratio 0.7 (0.9-2); Alkaline Phosphatase 101 U/L (34-104); Anion Gap 13 (3-11); Bilirubin,Total 0.3 mg/dl (0.2-1.0); Blood Urea Nitrogen 11 mg/dl (6-23); Calcium 8.8 mg/dl (8.6-10.3); Carbon Dioxide 27 mmol/L (21-32); Chloride 99 mmol/L (98-107); Globulin 4.2 gm/dl (2.5-4.0); Glucose 164 mg/dl (70-99(Fasting)); Lipase 46 U/L (11-82); Potassium 2.6 mmol/L (3.5-5.1); Sodium 139 mmol/L (136-145); Total Protein 7.3 gm/dl (6.0-8.3)
[2024-10-07 21:08] LABS: INR 1.1 (0.9-1.1); Partial Thromboplastin Time 32 Seconds (21-31); Prothrombin Time 11.6 Seconds (9.0-12.0)
[2024-10-07] MEDS: POTASSIUM CHLORIDE / WTR 10 MEQ/100 ML PLCT IV SCH (21:32)
[2024-10-07] MEDS: ACETAMINOPHEN SUSP 160 MG/5 ML BTL PO STA (21:32)
[2024-10-07] MEDS: CEFEPIME 2000MG 2,000 MG/20 ML SYR IV STA (21:32)
[2024-10-07] MEDS: ACETAMINOPHEN 500 MG TAB PO STA (21:32)
[2024-10-07 21:35] LABS: Appearance Urine Clear (Clear); Glucose Urine UA Negative (Negative)
--- NOTE | 2024-10-07 21:57 | CT Scan Report ---
Exam(s): CT T SPINE EXAM: CT Thoracic Spine Without Intravenous Contrast CLINICAL HISTORY: Reason for exam: low back pain, recent fx in spine. TECHNIQUE: Axial computed tomography images of the thoracic spine without intravenous contrast. CTDI is 21 mGy and DLP is 1288 mGy-cm. Automated exposure control was utilized for the study. A dose lowering technique was utilized adhering to the principles of ALARA. COMPARISON: No relevant prior studies available. FINDINGS: Vertebrae: No acute fracture. No traumatic subluxation. Discs/spinal canal/neural foramina: Lower thoracic disc degeneration. No spinal canal stenosis. Soft tissues: Unremarkable. IMPRESSION: No acute findings in the thoracic spine. Electronically signed by: Raoul Mari M.D. 10/07/24 21:56 PM
--- NOTE | 2024-10-07 21:58 | CT Scan Report ---
Exam(s): CT ABDOMEN + PELVIS Without Contrast EXAM: CT Abdomen and Pelvis Without Intravenous Contrast CLINICAL HISTORY: Reason for exam: low back pain, recent fx in spine. TECHNIQUE: Axial computed tomography images of the abdomen and pelvis without intravenous contrast. CTDI is 20.82 mGy and DLP is 705.94 mGy-cm. Automated exposure control was utilized for the study. A dose lowering technique was utilized adhering to the principles of ALARA. COMPARISON: CT lumbar spine 09/25/2024, CT abdomen and pelvis 02/24/2024 FINDINGS: Lung bases: Unremarkable. ABDOMEN: Liver: Unremarkable. Gallbladder and bile ducts: Unremarkable. No calcified stones. No ductal dilation. Pancreas: Unremarkable. No ductal dilation. Spleen: Unremarkable. No splenomegaly. Adrenals: Unremarkable. No mass. Kidneys and ureters: Large calculus right renal pelvis measuring 3 cm. No associated hydronephrosis. Additional right kidney caliceal stone measuring 12 mm. Left kidney and collecting system are unremarkable. Stomach and bowel: Unremarkable. No mucosal thickening. No bowel obstruction. PELVIS: Appendix: Appendix not visualized. Bladder: Unremarkable. No stones. Reproductive: Hysterectomy. ABDOMEN and PELVIS: Intraperitoneal space: Unremarkable. No free air, significant free fluid, or fluid collection. Bones/joints: Acute or subacute 70% L1 compression fracture with 7 mm retropulsion producing [id number] spinal canal stenosis. Acute/subacute 30% L3 compression fracture without retropulsion. No other fractures. Osteopenia. Disc and facet degeneration with grade 1 anterolisthesis of L4. No dislocation. Soft tissues: Small fat containing umbilical hernia. Vasculature: Atherosclerosis. No abdominal aortic aneurysm. Lymph nodes: Unremarkable. No enlarged lymph nodes. IMPRESSION: 1. Acute/subacute 70% L1 compression fracture with 7 mm retropulsion producing [id number] spinal canal stenosis. 2. Acute/subacute 30% L3 compression fracture without retropulsion. 3. Large calculus right renal pelvis measuring 3 cm. No associated hydronephrosis. Electronically signed by: Raoul Mari M.D. 10/07/24 21:56 PM
--- NOTE | 2024-10-07 21:58 | XRay Report ---
Exam(s): XR CXR 1 VIEW EXAM: XR Chest, 1 View CLINICAL HISTORY: Reason for exam: back pain. TECHNIQUE: Frontal view of the chest. COMPARISON: No relevant prior studies available. FINDINGS: Lungs: No consolidation. Pleural space: No significant pleural effusion. No pneumothorax. Heart: No cardiomegaly or pulmonary vascular congestion. Bones/joints: No acute fracture. No dislocation. Tubes, lines and devices: Left IJ approach port catheter with tip in the proximal SVC. IMPRESSION: No acute findings in the chest. Electronically signed by: Raoul Mari M.D. 10/07/24 21:57 PM
--- NOTE | 2024-10-07 21:58 | CT Scan Report ---
Exam(s): CT L SPINE EXAM: CT Lumbar Spine Without Intravenous Contrast CLINICAL HISTORY: Reason for exam: low back pain, recent fx in spine. TECHNIQUE: Axial computed tomography images of the lumbar spine without intravenous contrast. CTDI is 20.82 mGy and DLP is 705.94 mGy-cm. Automated exposure control was utilized for the study. A dose lowering technique was utilized adhering to the principles of ALARA. COMPARISON: CT lumbar spine 09/25/2024; CT abdomen and pelvis 02/24/24 FINDINGS: There is an acute/subacute 70% L1 compression fracture with 7 mm retropulsion producing moderate to severe spinal canal stenosis. There is an acute/subacute 30% L3 compression fracture without retropulsion. Vertebral body heights are otherwise maintained. Bones are osteopenic. There is disc and facet degeneration at multiple lumbar levels. L1-L2: Moderate-severe spinal canal stenosis due to retropulsed bone related to the L1 fracture. Moderate bilateral foraminal narrowing. L2-L3: Disc bulging mildly narrowing the spinal canal. Foramina are patent. L3-L4: Compression fracture at L3. Disc bulging and ligamentum flavum thickening. Mild spinal canal narrowing. Mild right and moderate left foraminal narrowing. L4-L5: Disc and facet degeneration with grade 1 anterolisthesis of L4. Severe spinal canal stenosis. Severe right foraminal narrowing. Left foramen is patent. L5-S1: Disc and facet degeneration. No significant spinal canal stenosis. Moderate left foraminal narrowing. Mild right foraminal narrowing. Sacroiliac joints are normally aligned. IMPRESSION: 1. Acute or subacute compression fractures at L1 and L3 as detailed above, similar in appearance to 09/25/2024, but new from 02/24/2024. 2. Multilevel canal and foraminal narrowing as detailed above. Electronically signed by: Raoul Mari M.D. 10/07/24 21:56 PM
[2024-10-07 23:03] LABS: Chlamydia pneumoniae PCR Not Detected (NotDetected); Coronavirus 229E PCR Not Detected (NotDetected); Coronavirus CoV-2 (COVID19)PCR Not Detected (NotDetected); Coronavirus HKU1 PCR Not Detected (NotDetected); Coronavirus NL63 PCR Not Detected (NotDetected); Coronavirus OC43PCR Not Detected (NotDetected); Human Metapneumovirus PCR Not Detected (NotDetected); Parainfluenza Virus 1 PCR Not Detected (NotDetected); Parainfluenza Virus 2 PCR Not Detected (NotDetected); Parainfluenza Virus 3 PCR Not Detected (NotDetected); Parainfluenza Virus 4 PCR Not Detected (NotDetected); Respiratory Syncytial VirusPCR Not Detected (NotDetected); Rhinovirus/Enterovirus PCR Not Detected (NotDetected)
--- NOTE | 2024-10-08 00:21 | History & Physical Report ---
Date of Service October 08, 2024 Assessment & Plan (1) Severe back pain: Plan: 79-year-old female with past medical history significant for type 2 diabetes, dyslipidemia, paroxysmal SVT, hypertension, GERD, osteoarthritis of both knees, AML, generalized anxiety disorder, spinal stenosis of lumbar region, persistent insomnia who was recently in the hospital for lumbar spine compression fracture and discharged to rehab comes back with severe back pain. Patient states at rehab she was having a lot of constipation and stool softeners were given since then she had a lot of back pain. The stool softeners relieved her constipation but the back pain got worse. She could not tolerate the back pain this reason she was came to the hospital today. She thinks she might had fever. Denies any bowel incontinence. She says sometimes she gets bladder incontinence but it is nothing new. Pain is not shooting down the legs. Ambulating with a walker but now the pain got worse. Denies any chest pain. No shortness of breath. No cough. No headache. No runny nose or sore throat. No difficulty swallowing. Last couple of days appetite is down. Last chemo was in August. She was supposed to get chemo on 09/29/2024 but because she is rehab it was held. Curr ently while resting seems comfortable and hemodynamics are okay. Severe back pain Recent L1 and L3 compression fractures Coming from rehab CT scan done in the ER shows same L1 L3 compression fractures Hemodynamically stable. Procalcitonin 2.5 Er empirically given cefepime which will be continued Will follow cultures Continue home pain regimen IV Dilaudid as needed for breakthrough pain Lidocaine patch [facility]ospine consult for further recommendations Hypokalemia Will replace Follow repeat labs AML undergoing chemotherapy History of pancytopenia Today WBC 6.5. Hemoglobin 10.1. Platelets 340 Currently undergoing monthly chemotherapy with decitabine/venetoclax Last chemo was in August. This this month chemo was delayed because patient was in rehab Has appointment with Dr. Gaines on 10/29/2024 per last admission Continue suppressive antibiotics Levaquin, voriconazole and acyclovir Hypertension On amlodipine. Last admit amlodipine was held for soft blood pressures Continue amlodipine for now. On furosemide with potassium supplements Hyperlipidemia On statin Anxiety/depression On citalopram and buspirone Diabetes Diet controlled We will follow HbA1c levels Sliding scale for now Recent a pot placement supposed to followup with general surgery for evaluation will consult surgery DVT prophylaxis Lovenox Disposition Morgan Full code. History of Present Illness Chief Complaint: Severe back pain Primary Care Provider: Vidal Card MD 79-year-old female with past medical history significant for type 2 diabetes, dyslipidemia, paroxysmal SVT, hypertension, GERD, osteoarthritis of both knees, AML, generalized anxiety disorder, spinal stenosis of lumbar region, persistent insomnia who was recently in the hospital for lumbar spine compression fracture and discharged to rehab comes back with severe back pain. Patient states at rehab she was having a lot of constipation and stool softeners were given since then she had a lot of back pain. The stool softeners relieved her constipation but the back pain got worse. She could not tolerate the back pain this reason she was came to the hospital today. She thinks she might had fever. Denies any bowel incontinence. She says sometimes she gets bladder incontinence but it is nothing new. Pain is not shooting down the legs. Ambulating with a walker but now the pain got worse. Denies any chest pain. No shortness of breath. No cough. No headache. No runny nose or sore throat. No difficulty swallowing. Last couple of days appetite is down. Last chemo was in August. She was supposed to get chemo on 09/29/2024 but because she is rehab it was held. Currently while resting seems comfortable and hemodynamics are okay. Past medical history. As mentioned above. Past surgical history. Hysterectomy. Injection of the lumbosacral spine. Appendectomy. Knee meniscectomy. Social history. . No smoking. Alcohol wine at night as per [employer] No drug use. Family history. Father had CLL. Mother had diabetes. [place]. Allergies Allergy/AdvReac Type Severity Reaction Status Date / Time No Known Allergies Allergy Mild Verified 09/17/24 11:27 Home Medications Medication Instructions Recorded Confirmed Type acetaminophen 500 mg tablet 1,000 mg PO Q8 PRN .FEVER/MILD 11/17/19 10/07/24 History PAIN 1-4 citalopram 10 mg tablet 10 mg PO QAM 01/09/24 10/07/24 History gabapentin 100 mg capsule 100 mg PO BID 01/09/24 10/07/24 History voriconazole 200 mg tablet 200 mg PO Q12 01/30/24 10/07/24 History ondansetron HCl 4 mg tablet 4 mg PO Q6H PRN Nausea And 02/02/24 10/07/24 Rx Vomiting #30 tabs amlodipine 10 mg tablet 5 mg PO QAM 08/26/24 10/07/24 History furosemide 20 mg tablet 10 mg PO Q OTHER DAY 08/26/24 10/07/24 History potassium chloride 10 mEq 10 meq PO Q OTHER DAY 08/26/24 10/07/24 History tablet,extended release atorvastatin 20 mg tablet 20 mg PO HS 09/10/24 10/07/24 History decitabine 50 mg intravenous 0 mg IV MONTHLY 09/10/24 10/07/24 History solution levofloxacin 500 mg tablet 500 mg PO QAM 09/25/24 10/07/24 History lorazepam 0.5 mg tablet 0.5 mg PO DAILY PRN Insomnia 09/25/24 10/07/24 History polyethylene glycol 3350 17 gram 17 g PO BID #1 ea 10/01/24 10/07/24 Rx oral powder packet (Miralax) sennosides 8.6 mg-docusate sodium 1 tab PO BID #1 tab 10/01/24 10/07/24 Rx 50 mg tablet (Senokot-S) acyclovir 400 mg tablet 400 mg PO BID 10/07/24 10/07/24 History buspirone 5 mg tablet 5 mg PO AMHS 10/07/24 10/07/24 History melatonin 5 mg tablet 5 mg PO HS PRN Insomnia 10/07/24 10/07/24 History oxycodone 5 mg tablet 5 mg PO Q6H PRN pain 5-8 10/07/24 10/07/24 History oxycodone 5 mg tablet 10 mg PO Q6H PRN pain 9-10 10/07/24 10/07/24 History tramadol 50 mg tablet 50 mg PO BID PRN pain 5-10 10/07/24 10/07/24 History Past Med/Surg History Problem List (Updated 10/08/24 @ 01:06 by Jose R Louie MD) Severe back pain Compression fracture of L3 vertebra Neutropenia (Acute) Compression fracture of lumbar vertebra (Acute) Back pain (Acute) Encounter for pre-operative examination Physical deconditioning Anxiety Diabetes mellitus, type II Dyslipidemia AML (acute myeloblastic leukemia) Pancytopenia (Acute) Biceps tendinitis of right shoulder Lumbar spondylosis 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, left Medical History Compression fracture of L1 vertebra Pericardial effusion History of - 02/2024- evaluated by [facility]- felt related to AML and/or chemo treatments- repeat ECHOs showed improvement (most recent ECHO 05/2024) Lumbar spondylosis Biceps tendinitis of right shoulder Anxiety HTN (hypertension) Diabetes mellitus type II, controlled no meds most recent Hgb A1C 12/2024 was 7.5 History of cellulitis 12/2023 per records Hx of acute respiratory failure (01/2024) had been at [place], transferred to [facility]- resolved AML (acute myeloblastic leukemia) (12/2023) [facility]- dr. gaines- gets chemo 1 week every month unless wbc is off, last chemo was week of august 31. has blood drawn weekly at [facility] SVT (supraventricular tachycardia) (2004) History of SVT- s/p 2004- no issues since. Sciatica Elevated cholesterol Controlled with statin Surgical History History of insertion of tunneled central venous catheter (CVC) with port (01/2024) right side armstrong cath placed in [place] History of left knee replacement (2019) History of bone marrow biopsy (07/17/24) x3- [place] and [facility] S/P epidural steroid injection sciatica History of appendectomy (1967) H/O cardiac radiofrequency ablation (2004) 2004 H/O: hysterectomy (1989) [facility] with BSO Family History Father Cancer Other Coronary heart disease Diabetes Leukemia No family history of adverse response to anesthesia Social History Smoking Status: Never smoker Second Hand Exposure: No; Do You Dip or Chew Tobacco: No; Hx Alcohol Use: Yes Alcohol type: wine Hx Substance Use: No Preferred Language: Kyrgyz Communication Ability: Effective Visual Impairment: No 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 ENT- oropharynx clear Neck- supple, no JVD. Lungs- clear to auscultation no wheezing or crackles Heart- regular rhythm; no murmur, no gallop. Abdomen- normal bowel sounds, soft, nontender, no distension Extremities- no pretibial edema, no erythema seen Neuro- alert, oriented PERRL, no facial palsy; no dysarthria; moves extremities Musculoskeletal b/l Straight leg positive R>>L Results & Data Results & Data Vital Signs (Past 12 Hours) Vital Signs Temp Pulse Resp BP Pulse Ox O2 Del Method 10/07/24 23:22 75 10/07/24 22:45 75 21 95 Room Air 10/07/24 22:34 152/68 H 10/07/24 22:00 71 21 95 10/07/24 22:00 133/68 10/07/24 22:00 133/68 10/07/24 22:00 133/68 10/07/24 21:43 148/67 H 10/07/24 21:33 71 23 98 10/07/24 21:21 75 23 98 10/07/24 19:57 79 22 98 10/07/24 19:42 76 21 97 10/07/24 19:31 Room Air 10/07/24 19:30 76 24 98 10/07/24 19:27 82 10/07/24 19:24 78 23 97 10/07/24 19:18 135/55 L 10/07/24 19:00 37.4 C 80 18 135/55 L 96 Room Air Diagnostic Findings Laboratory Results WBC 6.53 K/ul (4.8-10.8) 10/07/24 20:09 RBC 3.17 M/uL (4.20-5.40) L 10/07/24 20:09 Hgb 10.1 g/dl (12.0-16.0) L 10/07/24 20:09 Hct 30.1 % (37.0-47.0) L 10/07/24 20:09 MCV 95.0 fL (80.0-100.0) 10/07/24 20:09 MCH 31.9 pg (25.0-34.0) 10/07/24 20:09 MCHC 33.6 g/dL (32.0-36.0) 10/07/24 20:09 RDW Std Deviation 54.4 fL (36.4-46.3) H 10/07/24 20:09 RDW Coeff of Patti 15.5 % (11.5-14.5) H 10/07/24 20:09 Plt Count 340 K/uL (130-400) 10/07/24 20:09 MPV 9.3 fL (9.4-12.4) L 10/07/24 20:09 Immature Gran % (Auto) 1.2 % 10/07/24 20:09 Neut % (Auto) 61.0 % 10/07/24 20:09 Lymph % (Auto) 24.3 % 10/07/24 20:09 [place] % (Auto) 13.3 % 10/07/24 20:09 Eos % (Auto) 0.0 % 10/07/24 20:09 Baso % (Auto) 0.2 % 10/07/24 20:09 Neut # (Auto) 3.98 K/uL (1.40-6.50) 10/07/24 20:09 Lymph # (Auto) 1.59 K/uL (1.20-3.40) 10/07/24 20:09 [place] # (Auto) 0.87 K/uL (0.11-0.59) H 10/07/24 20:09 Eos # (Auto) 0.00 K/uL (0.00-0.50) 10/07/24 20:09 Baso # (Auto) 0.01 K/uL (0.00-0.20) 10/07/24 20:09 Immature Gran # (Auto) 0.08 K/uL (0.01-0.20) 10/07/24 20:09 Absolute Nucleated RBC 0.02 K/uL (0.00-0.12) 10/07/24 20:09 Nucleated RBC % (auto) 0.3 % 10/07/24 20:09 PT 11.6 Seconds (9.0-12.0) 10/07/24 20:09 INR 1.1 (0.9-1.1) 10/07/24 20:09 APTT 32 Seconds (21-31) H 10/07/24 20:09 PTT Ratio 1.2 10/07/24 20:09 Sodium 139 mmol/L (136-145) 10/07/24 20:09 Potassium 2.6 mmol/L (3.5-5.1) L 10/07/24 20:09 Chloride 99 mmol/L (98-107) 10/07/24 20:09 Carbon Dioxide 27 mmol/L (21-32) 10/07/24 20:09 Anion Gap 13 (3-11) H 10/07/24 20:09 BUN 11 mg/dl (6-23) 10/07/24 20:09 Creatinine 0.48 mg/dl (0.6-1.2) L 10/07/24 20:09 Est Cr Clr Drug Dosing Not Reportable 10/07/24 20:09 eGFR 97.49 10/07/24 20:09 BUN/Creatinine Ratio 22.9 (10-20) H 10/07/24 20:09 Glucose 164 mg/dl (70-99(Fasting)) H 10/07/24 20:09 Calcium 8.8 mg/dl (8.6-10.3) 10/07/24 20:09 Total Bilirubin 0.3 mg/dl (0.2-1.0) 10/07/24 20:09 AST 21 U/L (13-39) 10/07/24 20:09 ALT 19 U/L (7-52) 10/07/24 20:09 Alkaline Phosphatase 101 U/L (34-104) 10/07/24 20:09 Total Protein 7.3 gm/dl (6.0-8.3) 10/07/24 20:09 Albumin 3.1 gm/dl (3.4-5.0) L 10/07/24 20:09 Globulin 4.2 gm/dl (2.5-4.0) H 10/07/24 20:09 Albumin/Globulin Ratio 0.7 (0.9-2) L 10/07/24 20:09 Lipase 46 U/L (11-82) 10/07/24 20:09 Procalcitonin 2.51 ng/ml (0-0.5) H 10/07/24 20:09 Urine Color Yellow 10/07/24 21:20 Urine Appearance Clear (Clear) 10/07/24 21:20 Urine pH 8.5 (4.5-7.5) H 10/07/24 21:20 Ur Specific [place] 1.015 (1.000-1.030) 10/07/24 21:20 Urine Protein Negative (Negative) 10/07/24 21:20 Urine Glucose (UA) Negative (Negative) 10/07/24 21:20 Urine Ketones Negative (Negative) 10/07/24 21:20 Urine Blood Negative (Negative) 10/07/24 21:20 Urine Nitrite Negative (Negative) 10/07/24 21:20 Urine Bilirubin Negative (Negative) 10/07/24 21:20 Urine Urobilinogen Negative (Negative) 10/07/24 21:20 Ur Leukocyte Esterase Negative (Negative) 10/07/24 21:20 Urine Comment 10/07/24 21:20 Adenovirus (PCR) Not Detected (NotDetected) 10/07/24 22:00 B. pertussis DNA (PCR) Not Detected (NotDetected) 10/07/24 22:00 B.parapertussis DNA PCR Not Detected (NotDetected) 10/07/24 22:00 C. pneumoniae DNA (PCR) Not Detected (NotDetected) 10/07/24 22:00 Coronavirus OC43 (PCR) Not Detected (NotDetected) 10/07/24 22:00 Coronavirus HKU1 (PCR) Not Detected (NotDetected) 10/07/24 22:00 Coronavirus 229E (PCR) Not Detected (NotDetected) 10/07/24 22:00 SARS-CoV-2 (PCR) Not Detected (NotDetected) 10/07/24 22:00 Coronavirus NL63 (PCR) Not Detected (NotDetected) 10/07/24 22:00 Human Metapneumovir PCR Not Detected (NotDetected) 10/07/24 22:00 Influenza Type A (PCR) Not Detected (NotDetected) 10/07/24 22:00 Influenza Type B (PCR) Not Detected (NotDetected) 10/07/24 22:00 M. pneumoniae (PCR) Not Detected (NotDetected) 10/07/24 22:00 Parainfluenza 1 (PCR) Not Detected (NotDetected) 10/07/24 22:00 Parainfluenza 2 (PCR) Not Detected (NotDetected) 10/07/24 22:00 Parainfluenza 3 (PCR) Not Detected (NotDetected) 10/07/24 22:00 Parainfluenza 4 (PCR) Not Detected (NotDetected) 10/07/24 22:00 RSV (PCR) Not Detected (NotDetected) 10/07/24 22:00 Entero/Rhino (PCR) Not Detected (NotDetected) 10/07/24 22:00 Impressions Abdomen/Pelvis CT 10/07/24 19:31 Exam(s): CT ABDOMEN + PELVIS Without Contrast EXAM: CT Abdomen and Pelvis Without Intravenous Contrast CLINICAL HISTORY: Reason for exam: low back pain, recent fx in spine. TECHNIQUE: Axial computed tomography images of the abdomen and pelvis without intravenous contrast. CTDI is 20.82 mGy and DLP is 705.94 mGy-cm. Automated exposure control was utilized for the study. A dose lowering technique was utilized adhering to the principles of ALARA. COMPARISON: CT lumbar spine 09/25/2024, CT abdomen and pelvis 02/24/2024 FINDINGS: Lung bases: Unremarkable. ABDOMEN: Liver: Unremarkable. Gallbladder and bile ducts: Unremarkable. No calcified stones. No ductal dilation. Pancreas: Unremarkable. No ductal dilation. Spleen: Unremarkable. No splenomegaly. Adrenals: Unremarkable. No mass. Kidneys and ureters: Large calculus right renal pelvis measuring 3 cm. No associated hydronephrosis. Additional right kidney caliceal stone measuring 12 mm. Left kidney and collecting system are unremarkable. Stomach and bowel: Unremarkable. No mucosal thickening. No bowel obstruction. PELVIS: Appendix: Appendix not visualized. Bladder: Unremarkable. No stones. Reproductive: Hysterectomy. ABDOMEN and PELVIS: Intraperitoneal space: Unremarkable. No free air, significant free fluid, or fluid collection. Bones/joints: Acute or subacute 70% L1 compression fracture with 7 mm retropulsion producing ygncumun-ye-[id number] spinal canal stenosis. Acute/subacute 30% L3 compression fracture without retropulsion. No other fractures. Osteopenia. Disc and facet degeneration with grade 1 anterolisthesis of L4. No dislocation. Soft tissues: Small fat containing umbilical hernia. Vasculature: Atherosclerosis. No abdominal aortic aneurysm. Lymph nodes: Unremarkable. No enlarged lymph nodes. IMPRESSION: 1. Acute/subacute 70% L1 compression fracture with 7 mm retropulsion producing [id number]-vw-[id number] spinal canal stenosis. 2. Acute/subacute 30% L3 compression fracture without retropulsion. 3. Large calculus right renal pelvis measuring 3 cm. No associated hydronephrosis. Electronically signed by: Raoul Mari M.D. 10/07/24 21:[address] 10/07/24 19:31 Exam(s): CT L SPINE EXAM: CT Lumbar Spine Without Intravenous Contrast CLINICAL HISTORY: Reason for exam: low back pain, recent fx in spine. TECHNIQUE: Axial computed tomography images of the lumbar spine without intravenous contrast. CTDI is 20.82 mGy and DLP is 705.94 mGy-cm. Automated exposure control was utilized for the study. A dose lowering technique was utilized adhering to the principles of ALARA. COMPARISON: CT lumbar spine 09/25/2024; CT abdomen and pelvis 02/24/24 FINDINGS: There is an acute/subacute 70% L1 compression fracture with 7 mm retropulsion producing moderate to severe spinal canal stenosis. There is an acute/subacute 30% L3 compression fracture without retropulsion. Vertebral body heights are otherwise maintained. Bones are osteopenic. There is disc and facet degeneration at multiple lumbar levels. L1-L2: Moderate-severe spinal canal stenosis due to retropulsed bone related to the L1 fracture. Moderate bilateral foraminal narrowing. L2-L3: Disc bulging mildly narrowing the spinal canal. Foramina are patent. L3-L4: Compression fracture at L3. Disc bulging and ligamentum flavum thickening. Mild spinal canal narrowing. Mild right and moderate left foraminal narrowing. L4-L5: Disc and facet degeneration with grade 1 anterolisthesis of L4. Severe spinal canal stenosis. Severe right foraminal narrowing. Left foramen is patent. L5-S1: Disc and facet degeneration. No significant spinal canal stenosis. Moderate left foraminal narrowing. Mild right foraminal narrowing. Sacroiliac joints are normally aligned. IMPRESSION: 1. Acute or subacute compression fractures at L1 and L3 as detailed above, similar in appearance to 09/25/2024, but new from 02/24/2024. 2. Multilevel canal and foraminal narrowing as detailed above. Electronically signed by: Raoul Mari M.D. 10/07/24 21:[address] 10/07/24 19:31 Exam(s): CT T SPINE EXAM: CT Thoracic Spine Without Intravenous Contrast CLINICAL HISTORY: Reason for exam: low back pain, recent fx in spine. TECHNIQUE: Axial computed tomography images of the thoracic spine without intravenous contrast. CTDI is 21 mGy and DLP is 1288 mGy-cm. Automated exposure control was utilized for the study. A dose lowering technique was utilized adhering to the principles of ALARA. COMPARISON: No relevant prior studies available. FINDINGS: Vertebrae: No acute fracture. No traumatic subluxation. Discs/spinal canal/neural foramina: Lower thoracic disc degeneration. No spinal canal stenosis. Soft tissues: Unremarkable. IMPRESSION: No acute findings in the thoracic spine. Electronically signed by: Raoul Mari M.D. 10/07/24 21:56 PM Chest X-Ray 10/07/24 21:23 Exam(s): XR CXR 1 VIEW EXAM: XR Chest, 1 View CLINICAL HISTORY: Reason for exam: back pain. TECHNIQUE: Frontal view of the chest. COMPARISON: No relevant prior studies available. FINDINGS: Lungs: No consolidation. Pleural space: No significant pleural effusion. No pneumothorax. Heart: No cardiomegaly or pulmonary vascular congestion. Bones/joints: No acute fracture. No dislocation. Tubes, lines and devices: Left IJ approach port catheter with tip in the proximal SVC. IMPRESSION: No acute findings in the chest. Electronically signed by: Raoul Mari M.D. 10/07/24 21:57 PM Code Status & VTE Plan VTE Prophylaxis Plan VTE Prophylaxis will be ordered: Yes
[2024-10-08] MEDS: LORazepam 0.5 MG TAB PO STA (00:26)
[2024-10-08] MEDS: POTASSIUM CHLORIDE CRTAB 20 MEQ TABCR PO STA (00:26)
[2024-10-08] MEDS: CYCLOBENZAPRINE HCL 5 MG TAB PO STA (01:53)
[2024-10-08] MEDS: FAMOTIDINE 20MG IV PUSH 20 MG/5 ML SYR IV STA (01:53)
[2024-10-08] MEDS: HYDROmorphone INJ 0.5 MG/0.5 ML SYR IV STA (02:32)
[2024-10-08] MEDS ORDERED: GLUCAGON FOR INJ 1 MG VIAL SQ PRN (03:00)
[2024-10-08] MEDS ORDERED: DEXTROSE 50% 50 ML SYRINGE IV PRN (03:00)
[2024-10-08] MEDS ORDERED: HYDROmorphone INJ 0.5 MG/0.5 ML SYR IV PRN (03:00)
[2024-10-08] MEDS ORDERED: GLUCOSE 40% GEL 15 GM TUBE PO PRN (03:00)
[2024-10-08] MEDS ORDERED: POLYETHYLENE (MIRALAX) 17 GM PACK PO PRN (03:00)
[2024-10-08] MEDS ORDERED: CARBOHYDRATES FOR HYPOGLYCEMIA PO PRN (03:00)
[2024-10-08] MEDS ORDERED: GLUCOSE 10 TAB/TUBE PO PRN (03:00)
[2024-10-08] MEDS ORDERED: MELATONIN 3 MG TAB PO PRN (03:08)
[2024-10-08] MEDS: SODIUM CHLORIDE 0.9% 1,000 ML IV SCH (03:36)
[2024-10-08] MEDS: POTASSIUM CHLORIDE / WTR 10 MEQ/100 ML PLCT IV SCH (03:39)
[2024-10-08] MEDS: CEFEPIME 2000MG 2,000 MG/20 ML SYR IV SCH (06:03)
[2024-10-08 07:29] LABS: Hematocrit (blood only) 29.9 % (37.0-47.0); Hemoglobin 9.3 g/dl (12.0-16.0); Immature Granulocytes # (auto) 0.11 K/uL (0.01-0.20); Immature Granulocytes % (auto) 1.4 %; Mean Corpuscular Hemoglobin 30.6 pg (25.0-34.0); Mean Corpuscular Volume 98.4 fL (80.0-100.0); Platelet Count 297 K/uL (130-400); RDW Standard Deviation 57.2 fL (36.4-46.3); Red Blood Count 3.04 M/uL (4.20-5.40); White Blood Count 8.12 K/ul (4.8-10.8)
--- NOTE | 2024-10-08 07:39 | Communication Note ---
Date of Service: October 08, 2024 Patient is s/p left a-port insertion and right armstrong removal with dr. mosher on 09/17. We have been consulted for removal of stitch at the incision of the right armstrong removal. She has not been seen in follow up as she has been in and out of the hospital and to rehab with back pain and compression fractures. Patient reports no issues with her actual port. No redness, pain, complaints. Her port is currently accessed with tape over the top and is currently being used without issues. I removed the stitch in her R chest region without difficulty. No dressing needed. Please call with any questions/concerns
[2024-10-08 07:43] LABS: Anion Gap 6.0 (3-11); Blood Urea Nitrogen 12.0 mg/dl (6-23); Calcium 8.1 mg/dl (8.6-10.3); Carbon Dioxide 29.0 mmol/L (21-32); Chloride 103.0 mmol/L (98-107); Creatinine Clr Calc Pharmacy 92.8 ml/min; Glucose 122.0 mg/dl (70-99(Fasting)); Magnesium 2.0 mg/dl (1.7-2.4); Potassium 4.3 mmol/L (3.5-5.1); Sodium 138.0 mmol/L (136-145)
--- NOTE | 2024-10-08 08:13 | Orthopedic Consultation ---
Date of Consultation October 08, 2024 Assessment & Plan (1) Compression fracture of L3 vertebra: At this time we will initiate a course of physical therapy to determine how she tolerates transfers and ambulation. If she continues to have incapacitating back pain we may consider kyphoplasty. Her white count has improved. I would request medicine's input on her ability to withstand such a procedure in light of her cancer therapy. History of Present Illness Reason for Consultation: Worsening back pain Attending Physician: Haja Eldridge MD History of Present Illness This is a 79-year-old female with a known history of an L1 and L3 compression fracture. She had [facility] managed at a [facility] but unfortunately had a marked exacerbation of her pain over the past day. She states she had been doing well with physical therapy with ambulation and stairs. There is been a marked increase in her back pain over the past day. She states there was a episode of severe constipation that may have precipitated these events. At this point she denies any leg pain numbness or tingling in the lower extremities. Her pain is controlled at rest. Allergies Allergy/AdvReac Type Severity Reaction Status Date / Time No Known Allergies Allergy Mild Verified 09/17/24 11:27 Home Medications Medication Instructions Recorded Confirmed Type acetaminophen 500 mg tablet 1,000 mg PO Q8 PRN .FEVER/MILD 11/17/19 10/07/24 History PAIN 1-4 citalopram 10 mg tablet 10 mg PO QAM 01/09/24 10/07/24 History gabapentin 100 mg capsule 100 mg PO BID 01/09/24 10/07/24 History voriconazole 200 mg tablet 200 mg PO Q12 01/30/24 10/07/24 History ondansetron HCl 4 mg tablet 4 mg PO Q6H PRN Nausea And 02/02/24 10/07/24 Rx Vomiting #30 tabs amlodipine 10 mg tablet 5 mg PO QAM 08/26/24 10/07/24 History furosemide 20 mg tablet 10 mg PO Q OTHER DAY 08/26/24 10/07/24 History potassium chloride 10 mEq 10 meq PO Q OTHER DAY 08/26/24 10/07/24 History tablet,extended release atorvastatin 20 mg tablet 20 mg PO HS 09/10/24 10/07/24 History decitabine 50 mg intravenous 0 mg IV MONTHLY 09/10/24 10/07/24 History solution levofloxacin 500 mg tablet 500 mg PO QAM 09/25/24 10/07/24 History lorazepam 0.5 mg tablet 0.5 mg PO DAILY PRN Insomnia 09/25/24 10/07/24 History polyethylene glycol 3350 17 gram 17 g PO BID #1 ea 10/01/24 10/07/24 Rx oral powder packet (Miralax) sennosides 8.6 mg-docusate sodium 1 tab PO BID #1 tab 10/01/24 10/07/24 Rx 50 mg tablet (Senokot-S) acyclovir 400 mg tablet 400 mg PO BID 10/07/24 10/07/24 History buspirone 5 mg tablet 5 mg PO AMHS 10/07/24 10/07/24 History melatonin 5 mg tablet 5 mg PO HS PRN Insomnia 10/07/24 10/07/24 History oxycodone 5 mg tablet 5 mg PO Q6H PRN pain 5-8 10/07/24 10/07/24 History oxycodone 5 mg tablet 10 mg PO Q6H PRN pain 9-10 10/07/24 10/07/24 History tramadol 50 mg tablet 50 mg PO BID PRN pain 5-10 10/07/24 10/07/24 History Patient History Medical History Compression fracture of L1 vertebra Pericardial effusion History of - 02/2024- evaluated by [facility]- felt related to AML and/or chemo treatments- repeat ECHOs showed improvement (most recent ECHO 05/2024) Lumbar spondylosis Biceps tendinitis of right shoulder Anxiety HTN (hypertension) Diabetes mellitus type II, controlled no meds most recent Hgb A1C 12/2024 was 7.5 History of cellulitis 12/2023 per records Hx of acute respiratory failure (01/2024) had been at [place], transferred to [facility]- resolved 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 oliver- gets chemo 1 week every month unless wbc is off, last chemo was week of august 31. has blood drawn weekly at [facility] SVT (supraventricular tachycardia) (2004) History of SVT- s/p 2004- no issues since. Sciatica Elevated cholesterol Controlled with statin Surgical History History of insertion of tunneled central venous catheter (CVC) with port (01/2024) right side armstrong cath placed in [place] History of left knee replacement (2019) History of bone marrow biopsy (07/17/24) x3- [place] and [facility] S/P epidural steroid injection sciatica History of appendectomy (1967) H/O cardiac radiofrequency ablation (2004) 2004 H/O: hysterectomy (1989) [facility] with BSO Family History Father Cancer Other Coronary heart disease Diabetes Leukemia No family history of adverse response to anesthesia Social History Smoking Status: Never smoker Second Hand Exposure: No; Do You Dip or Chew Tobacco: No; Hx Alcohol Use: Yes Alcohol type: wine Hx Substance Use: No Preferred Language: Palestinian Communication Ability: Effective Visual Impairment: No Limitations Consumer Credit Counselor Required: No Beliefs That Will Affect Care: None marital status: Current Living Situation: Family Current Living Situation Comment: lives w/daughter & grandson Other Information That Helps Us Care for You: No Feels Safe at Home: Yes Safety Concerns: Feels Safe At This Time Assistive Devices: Cane and Glasses Assistive Devices Comment: was walking w/brace only, but started using cane & wheelchair due to pain Physical Exam Physical Exam: On exam she has reasonable strength testing. Sensory is intact. She appears comfortable. Results & Data Vital Signs (Past 12 Hours) Vital Signs Temp Pulse Pulse Pulse Resp BP BP 10/08/24 08:06 82 10/08/24 08:05 36.9 C 83 83 24 156/82 H 10/08/24 03:12 78 10/08/24 02:51 36.8 C 83 20 124/68 10/08/24 02:40 10/08/24 02:40 36.8 C 83 20 124/68 10/08/24 02:00 74 20 10/08/24 00:11 36.9 C 69 19 10/07/24 23:22 75 10/07/24 22:45 75 21 10/07/24 22:34 152/68 H 10/07/24 22:00 71 21 10/07/24 22:00 133/68 10/07/24 22:00 133/68 10/07/24 22:00 133/68 10/07/24 21:43 148/67 H 10/07/24 21:33 71 23 10/07/24 21:21 75 23 BP Pulse Ox O2 Del Method 10/08/24 08:06 10/08/24 08:05 93 Room Air 10/08/24 03:12 10/08/24 02:51 93 Room Air 10/08/24 02:40 Room Air 10/08/24 02:40 92 Room Air 10/08/24 02:00 159/80 H 95 Room Air 10/08/24 00:11 148/69 H 98 Room Air 10/07/24 23:22 10/07/24 22:45 95 Room Air 10/07/24 22:34 10/07/24 22:00 95 10/07/24 22:00 10/07/24 22:00 10/07/24 22:00 10/07/24 21:43 10/07/24 21:33 98 10/07/24 21:21 98 (1) Compression fracture of L3 vertebra Encounter type: initial encounter Qualified Code(s): S32.030A - Wedge compression fracture of third lumbar vertebra, initial encounter for closed fracture
[2024-10-08] MEDS: ACYCLOVIR 400 MG TAB PO SCH (08:34)
[2024-10-08] MEDS: CITALOPRAM 20 MG TAB PO SCH (08:34)
[2024-10-08] MEDS: VORICONAZOLE 200 MG TABLET PO SCH (08:35)
[2024-10-08] MEDS: GABAPENTIN 100 MG CAP PO SCH (08:35)
[2024-10-08] MEDS: FUROSEMIDE 20 MG TAB PO SCH (08:35)
[2024-10-08] MEDS: busPIRone 5 MG TAB PO SCH (08:36)
[2024-10-08] MEDS: levoFLOXacin 500 MG TAB PO SCH (08:36)
[2024-10-08] MEDS: LIDOCAINE 5% 1 PATCH TD SCH (08:36)
[2024-10-08] MEDS: ENOXAPARIN INJ 40 MG/0.4 ML SYR SQ SCH (08:37)
[2024-10-08] MEDS: DOCUSATE SODIUM/SENNA 50/8.6MG TAB PO SCH (08:43)
[2024-10-08] MEDS: POLYETHYLENE (MIRALAX) 17 GM PACK PO SCH (08:43)
[2024-10-08] MEDS: POTASSIUM CHLORIDE 10 MEQ TABCR PO SCH (08:43)
[2024-10-08] MEDS: INSULIN ASPART PER UNIT CHARGE SC SCH (08:56)
[2024-10-08 10:04] LABS: Hemoglobin A1C 6.4 % (4.5-5.6)
--- NOTE | 2024-10-08 14:25 | Communication Note ---
Patient seen and examined at bedside. States she is in a lot of pain in her back. On exam, appears to have flat affect, tenderness to palpation in lower back, dry mucuous membranes. Patient presenting with failure to thrive at SNF due to uncontrolled pain from stress fractures. Has AML making patient higher risk for any surgical procedure. NSQUIP below. Start with pain control to enable PT/OT, and reassess. Would avoid surgery if at all possible. Patient will require oncology optimization if we proceed with surgery. Date of Service: October 08, 2024
[2024-10-08] MEDS: ATORVASTATIN 20 MG TAB PO SCH (20:37)
[2024-10-08] MEDS: REMOVE LIDODERM PATCH SCH (20:40)
[2024-10-09 06:14] LABS: Hematocrit (blood only) 30.3 % (37.0-47.0); Hemoglobin 9.5 g/dl (12.0-16.0); Mean Corpuscular Hemoglobin 30.7 pg (25.0-34.0); Mean Corpuscular Volume 98.1 fL (80.0-100.0); Platelet Count 286 K/uL (130-400); RDW Standard Deviation 56.8 fL (36.4-46.3); Red Blood Count 3.09 M/uL (4.20-5.40); White Blood Count 6.54 K/ul (4.8-10.8)
[2024-10-09 06:42] LABS: Anion Gap 8.0 (3-11); Blood Urea Nitrogen 9.0 mg/dl (6-23); Calcium 8.4 mg/dl (8.6-10.3); Carbon Dioxide 30.0 mmol/L (21-32); Chloride 101.0 mmol/L (98-107); Creatinine Clr Calc Pharmacy 99.9 ml/min; Glucose 133.0 mg/dl (70-99(Fasting)); Magnesium 2.0 mg/dl (1.7-2.4); Potassium 3.4 mmol/L (3.5-5.1); Sodium 139.0 mmol/L (136-145)
[2024-10-09] MEDS: ACETAMINOPHEN 325 MG TAB PO PRN (08:01)
--- NOTE | 2024-10-09 09:15 | XRay Report ---
KUB HISTORY: abdominal pain COMPARISON STUDY: 10/07/2024 FINDINGS: Stable large calcification at the right renal collecting system. There is mild retained sto ol. No bowel obstruction seen. No gross free air. IMPRESSION: No acute findings. ACT 112: Negative or not required by law. The above report was generated using voice recognition software. It may contain grammatical, syntax o r spelling errors. Electronically signed by: Joe Rivero M.D. 10/09/2024 9:13 AM
[2024-10-09] MEDS: PROMETHAZINE 6.25 MG/50.25 ML BAG IV PRN (09:35)
[2024-10-09] MEDS: POTASSIUM CHLORIDE 10 MEQ TABCR PO STA (09:44)
[2024-10-09] MEDS: HEPARIN 100 UNIT/ML 5ML FLUSH FLUSH PRN (10:11)
[2024-10-09 11:52] LABS: Appearance Urine Cloudy (Clear); Bacteria Urine Automated None Seen (None Seen); Cast Urine Automated 0-2 /lpf (0-2); Epithelial Cell Urine Auto 0-2 /hpf (0-2); Glucose Urine UA Negative (Negative); RBC Urine Automated 0-2 /hpf (0-2); WBC Urine Automated 0-5 /hpf (0-5)
[2024-10-09] MEDS: HYDROmorphone INJ 1 MG/ML SYRINGE IV PRN (12:16)
[2024-10-09] MEDS: NSS + 20MEQ KCL 20 MEQ/1,000 ML BAG IV SCH (13:14)
--- NOTE | 2024-10-09 14:22 | Hospitalist Progress Note ---
Date of Service October 09, 2024 Assessment & Plan (1) Severe back pain: Plan: 79-year-old female with past medical history significant for type 2 diabetes, dyslipidemia, paroxysmal SVT, hypertension, GERD, osteoarthritis of both knees, AML, generalized anxiety disorder, spinal stenosis of lumbar region, persistent insomnia who was recently in the hospital for lumbar spine compression fracture and discharged to rehab comes back with severe back pain. Patient states at rehab she was having a lot of constipation and stool softeners were given since then she had a lot of back pain. The stool softeners relieved her constipation but the back pain got worse. She could not tolerate the back pain this reason she was came to the hospital today. She thinks she might had fever. Denies any bowel incontinence. She says sometimes she gets bladder incontinence but it is nothing new. Pain is not shooting down the legs. Ambulating with a walker but now the pain got worse. Denies any chest pain. No shortness of breath. No cough. No headache. No runny nose or sore throat. No difficulty swallowing. Last couple of days appetite is down. Last chemo was in August. She was supposed to get chemo on 09/29/2024 but because she is rehab it was held. Curr ently while resting seems comfortable and hemodynamics are okay. Severe back pain Recent L1 and L3 compression fractures Coming from rehab CT scan done in the ER shows same L1 L3 compression fractures Hemodynamically stable. Procalcitonin 2.5 Er empirically given cefepime which will be continued Will follow cultures Continue home pain regimen IV Dilaudid as needed for breakthrough pain Lidocaine patch Orthospine consult for further recommendations 10/09 Still having significant back pain today pain management service consulted Discussed with orthospine Dr. Bergman-continue with conservative management for now Discussed with patient's oncologist Dr. Gaines- mary to proceed with kyphoplasty if recommended, from our standpoint IV fluids bowel regimen Lower abdominal Discomfort UA: Negative for UTI KUB: No obstruction, minimal fecal load Checked in with RN the afternoon, seems to be improving Continue to monitor for now If persistent, will require repeat CT abdomen and pelvis Hypokalemia Potassium ordered AML undergoing chemotherapy History of pancytopenia Today WBC 6.5. Hemoglobin 10.1. Platelets 340 Currently undergoing monthly chemotherapy with decitabine/venetoclax Last chemo was in August. This this month chemo was delayed because patient was in rehab Has appointment with Dr. Gaines on 10/29/2024 per last admission Continue suppressive antibiotics Levaquin, voriconazole and acyclovir 10/09 CBC seems to be stable compared to yesterday Continue to monitor closely Hypertension On amlodipine. Last admit amlodipine was held for soft blood pressures Continue amlodipine for now. On furosemide with potassium supplements -- hold Lasix for now Hyperlipidemia On statin Anxiety/depression On citalopram and buspirone Diabetes Diet controlled We will follow HbA1c levels: 6.4 Sliding scale for now Recent A port placement supposed to followup with general surgery for evaluation Gen Surg consulted DVT prophylaxis Lovenox Disposition MedSurg Full code. plan of care discussed with patient and her daughter Shanna in detail and at length all questions answered they are understanding, agreeable, comfortable with the plan of care Admission and Anticipated Discharge Date Admission Date: October 08, 2024 Subjective seen resting in bed, not in distress Patient's daughter at the bedside visiting States she was able to sleep through the night, but woke up with significant lower back pain again, 4 out of 10 No lower leg weakness or numbness Also reports lower abdominal discomfort, over the bladder area mostly, denies dysuria or hematuria, fevers or chills No epigastric pain, nausea, but appetite is poor no other new symptoms Review of Systems Review of Systems: all noted and negative except for above Physical Exam Physical Exam: General- oriented x 3, not in distress, speaks in sentences with no effort or accessory muscle use Eyes- anicteric Neck- no JVD Lungs- clear breath sounds bilaterally, no rales/wheezes Heart- normal rate, regular rhythm; no murmurs Abdomen- normal bowel sounds, nondistended, soft, mild tenderness BL Lower quadrants Extremities- no pretibial edema, no calf tenderness Neuro- alert, oriented x 3; no gross focal neurologic deficits Skin- warm & dry Results & Data Results & Data Vital Signs (Past 12 Hours) Vital Signs Temp Pulse Pulse Pulse Resp BP BP 10/09/24 11:34 36.7 C 67 18 120/76 10/09/24 08:35 36.9 C 89 18 159/83 H 10/09/24 05:53 76 10/09/24 02:28 37.1 C 81 18 148/79 H Pulse Ox O2 Del Method 10/09/24 11:34 96 Room Air 10/09/24 08:35 93 Room Air 10/09/24 05:53 10/09/24 02:28 93 Room Air all noted and reviewed including below
[2024-10-09 21:40] LABS: A calco-baum cmplx NotReported Not Detected (NotDetected); Bact fragilis Not Reported Not Detected (NotDetected); Blood Culture Id Panel See PCR Comment (NotDetected); C auris Not Reported Not Detected (NotDetected); Calbicans Not Reported Not Detected (NotDetected); Candida glabrata Not Reported Not Detected (NotDetected); Candida krusei Not Reported Not Detected (NotDetected); Cneoformans/gatti Not Reported Not Detected (NotDetected); Cparapsilosis Not Reported Not Detected (NotDetected); Ctropicalis Not Reported Not Detected (NotDetected); E cloacae compx Not Reported Not Detected (NotDetected); Efaecalis Not Reported Not Detected (NotDetected); Efaecium Not Reported Not Detected (NotDetected); Enterobacterales Not Reported Not Detected (NotDetected); Escherichia coli Not Reported Not Detected (NotDetected); H influenzae Not Reported Not Detected (NotDetected); K aerogenes Not Reported Not Detected (NotDetected); Koxytoca Not Reported Not Detected (NotDetected); Kpneumoniae grp Not Reported Not Detected (NotDetected); Lmonocyt Not Reported Not Detected (NotDetected); N meningitidis Not Reported Not Detected (NotDetected); P aeruginosa Not Reported Not Detected (NotDetected); Proteus spp Not Reported Not Detected (NotDetected); Salmonella spp Not Reported Not Detected (NotDetected); Staph lugdunensis Not Reported Not Detected (NotDetected); Staph spp. Not Reported DETECTED (NotDetected); Staphaureus Not Reported Not Detected (NotDetected); Staphepi Not Reported DETECTED (NotDetected); Staphylococcus spp. DETECTED (NotDetected); Stenmaltophilia Not Reported Not Detected (NotDetected); Strep agal(GrpB) Not Reported Not Detected (NotDetected); Strep pneum Not Reported Not Detected (NotDetected); Strep pyog (GrpA) Not Reported Not Detected (NotDetected); Strep spp Not Reported Not Detected (NotDetected)
[2024-10-09 21:45] LABS: Staphylococcus epidermidis DETECTED (NotDetected); mecAC Resistant Gene DETECTED (NotDetected)
[2024-10-09] MEDS ORDERED: VANCOMYCIN CONSULT ACTIVE PRN (22:02)
--- NOTE | 2024-10-09 22:02 | Communication Note ---
Date of Service: October 09, 2024 Made aware by lab of abnormal blood CS initial result Gram-positive cocci clusters 1 bottle MRSA gene positive Elevated procalcitonin on admission AP Gram-positive bacteremia MRSA 1 bottle IV vancomycin course Follow final blood CS
[2024-10-09] MEDS: VANCOMYCIN HCL 1,250 MG in SODIUM CHLORIDE 0.9% 250 ML IV ONE (22:50)
[2024-10-10] MEDS: VANCOMYCIN 750 MG in D5W 250mL (Use w/ Shortage) IV SCH (03:55)
[2024-10-10 07:08] LABS: Hematocrit (blood only) 29.5 % (37.0-47.0); Hemoglobin 9.5 g/dl (12.0-16.0); Mean Corpuscular Hemoglobin 31.5 pg (25.0-34.0); Mean Corpuscular Volume 97.7 fL (80.0-100.0); Platelet Count 262 K/uL (130-400); RDW Standard Deviation 55.5 fL (36.4-46.3); Red Blood Count 3.02 M/uL (4.20-5.40); White Blood Count 5.89 K/ul (4.8-10.8)
[2024-10-10 07:34] LABS: Anion Gap 7.0 (3-11); Blood Urea Nitrogen 8.0 mg/dl (6-23); Calcium 8.1 mg/dl (8.6-10.3); Carbon Dioxide 28.0 mmol/L (21-32); Chloride 102.0 mmol/L (98-107); Creatinine Clr Calc Pharmacy 121.8 ml/min; Glucose 129.0 mg/dl (70-99(Fasting)); Magnesium 1.9 mg/dl (1.7-2.4); Potassium 3.5 mmol/L (3.5-5.1); Sodium 137.0 mmol/L (136-145)
[2024-10-10] MEDS: ADVANCED PROBIOTIC 625 MG CAPSULE PO SCH (08:52)
[2024-10-10] MEDS: PROMETHAZINE 6.25 MG/50.25 ML BAG IV STA (09:29)
--- NOTE | 2024-10-10 12:15 | Pharmacy Report ---
Pharmacy PK ABX Note - Date of Service October 10, 2024 - Assessment and Plan Assessment 79 year old started on vancomycin due to positive blood culture result/Gm+ cocci -staph epi / BCID2 positive for mecA/C. Only 1/2 bottles positive, therefore potential for contaminant. Repeat blood cultures pending. Pt with history of recent lumbar spine fracture - admitted for worsening pain. Per notes, ortho recommending conservative measures. Also undergoing chemotherapy with last sessi on in August. On suppressive abx with levaquin, voriconazole and acyclovir. Plan Vancomycin * Loading dose: 1250 mg IV x 1 * Maintenance dose: 750 mg IV every 8 hours * Regimen is predicted to achieve target AUC/ARNOLD of 400-600 mg/L.hr * Will consider ordering a vancomycin level if plan is to continue vancomycin >48 hours Pharmacy will continue to follow and will adjust dose/frequency as necessary. Thank you. Pharmacy has transitioned to AUC monitoring for vancomycin. AUC/ARNOLD is the preferred PK/PD target and is associated with decreased risk of nephrotoxicity compared to traditional trough targets.
--- NOTE | 2024-10-10 13:28 | Pain Management Consultation ---
Date of Consultation October 10, 2024 Assessment & Plan (1) Severe back pain: (2) Compression fracture of L3 vertebra: Encounter type: initial encounter Qualified Code(s): S32.030A - Wedge compression fracture of third lumbar vertebra, initial encounter for closed fracture (3) Compression fracture of lumbar vertebra: Plan 1. Nothing to offer interventionally for acute lumbar fractures. 2. Continue current medication regimen - Oxycodone 5-10mg PRN pain. Continue bowel regimen. 3. Patient does has an LSO back brace to use. Will bring to hospital to use during activity. 4. Recommend PT. 5. Continue Lidocaine patches. 6. Will sign off on the patient. Please contact with any questions or concerns. History of Present Illness Attending Physician: Melvin Poe MD History of Present Illness This is a 79-year-old female that has been seen at the [facility] [address] for acute low back pain. Patient states that the pain started spontaneously a few days ago without any specific injury. Pain is located in the low back. No radicular symptoms. There is increased pain with any movement. Laying supine does provide adequate pain relief. She does have a back brace at home that she will bring to the hospital to use when sitting or standing. There is discussion with Dr. Bergman if she may be a candidate for a kyphoplasty. Patient has been able to roll in her bed with mild pain. Currently she is taking oxycodone 5 to 10 mg every 6 hours if needed for pain relief. She does find the medication effective towards diminishing her pain. She did have constipation to which she was medicated and able to have a bowel movement. She denies any leg weakness, saddle anesthesia, foot drop. Case discussed with Dr. Eileen Bell Allergies Allergy/AdvReac Type Severity Reaction Status Date / Time No Known Allergies Allergy Mild Verified 09/17/24 11:27 Home Medications Medication Instructions Recorded Confirmed Type acetaminophen 500 mg tablet 1,000 mg PO Q8 PRN .FEVER/MILD 11/17/19 10/07/24 History PAIN 1-4 citalopram 10 mg tablet 10 mg PO QAM 01/09/24 10/07/24 History gabapentin 100 mg capsule 100 mg PO BID 01/09/24 10/07/24 History voriconazole 200 mg tablet 200 mg PO Q12 01/30/24 10/07/24 History ondansetron HCl 4 mg tablet 4 mg PO Q6H PRN Nausea And 02/02/24 10/07/24 Rx Vomiting #30 tabs amlodipine 10 mg tablet 5 mg PO QAM 08/26/24 10/07/24 History furosemide 20 mg tablet 10 mg PO Q OTHER DAY 08/26/24 10/07/24 History potassium chloride 10 mEq 10 meq PO Q OTHER DAY 08/26/24 10/07/24 History tablet,extended release atorvastatin 20 mg tablet 20 mg PO HS 09/10/24 10/07/24 History decitabine 50 mg intravenous 0 mg IV MONTHLY 09/10/24 10/07/24 History solution levofloxacin 500 mg tablet 500 mg PO QAM 09/25/24 10/07/24 History lorazepam 0.5 mg tablet 0.5 mg PO DAILY PRN Insomnia 09/25/24 10/07/24 History polyethylene glycol 3350 17 gram 17 g PO BID #1 ea 10/01/24 10/07/24 Rx oral powder packet (Miralax) sennosides 8.6 mg-docusate sodium 1 tab PO BID #1 tab 10/01/24 10/07/24 Rx 50 mg tablet (Senokot-S) acyclovir 400 mg tablet 400 mg PO BID 10/07/24 10/07/24 History buspirone 5 mg tablet 5 mg PO AMHS 10/07/24 10/07/24 History melatonin 5 mg tablet 5 mg PO HS PRN Insomnia 10/07/24 10/07/24 History oxycodone 5 mg tablet 5 mg PO Q6H PRN pain 5-8 10/07/24 10/07/24 History oxycodone 5 mg tablet 10 mg PO Q6H PRN pain 9-10 10/07/24 10/07/24 History tramadol 50 mg tablet 50 mg PO BID PRN pain 5-10 10/07/24 10/07/24 History Pain History Previous Imaging and Results Imaging: L1 and L3 compression fractures Patient History Medical History Compression fracture of L1 vertebra Pericardial effusion History of - 02/2024- evaluated by [facility] cardio- felt related to AML and/or chemo treatments- repeat ECHOs showed improvement (most recent ECHO 05/2024) Lumbar spondylosis Biceps tendinitis of right shoulder Anxiety HTN (hypertension) Diabetes mellitus type II, controlled no meds most recent Hgb A1C 12/2024 was 7.5 History of cellulitis 12/2023 per records Hx of acute respiratory failure (01/2024) had been at [place], transferred to [facility]- resolved AML (acute myeloblastic leukemia) (12/2023) [facility]- dr. oliver- gets chemo 1 week every month unless wbc is off, last chemo was week august 31. has blood drawn weekly at [facility] SVT (supraventricular tachycardia) (2004) History of SVT- s/p 2004- no issues since. Sciatica Elevated cholesterol Controlled with statin Surgical History History of insertion of tunneled central venous catheter (CVC) with port (01/2024) right side armstrong cath placed in [place] History of left knee replacement (2019) History of bone marrow biopsy (07/17/24) x3- [place] and [facility] S/P epidural steroid injection sciatica History of appendectomy (1967) H/O cardiac radiofrequency ablation (2004) 2004 H/O: hysterectomy (1989) [facility] with BSO Family History Father Cancer Other Coronary heart disease Diabetes Leukemia No family history of adverse response to anesthesia Social History Smoking Status: Never smoker Second Hand Exposure: No; Do You Dip or Chew Tobacco: No; Hx Alcohol Use: Yes Alcohol type: wine Hx Substance Use: No Preferred Language: Khmer Communication Ability: Effective Visual Impairment: No Limitations Tobacco Feeder Catcher Required: No Beliefs That Will Affect Care: None marital status: Current Living Situation: Family Current Living Situation Comment: lives w/daughter & grandson Other Information That Helps Us Care for You: No Feels Safe at Home: Yes Safety Concerns: Feels Safe At This Time Assistive Devices: Cane and Walker Assistive Devices Comment: was walking w/brace only, but started using cane & wheelchair due to pain Physical Exam Physical Exam: GENERAL: This is a 79 year old female. Laying supine in the hospital bed. Moderate pain with movement. HEAD/FACE: Normocephalic and atraumatic. EYES: No drainage or conjunctival injection. ENT: Nose without bleeding or discharge. Dry mouth. NECK: Full ROM without apparent pain. No swelling or masses noted. RESPIRATORY: Patient with unlabored breathing. No signs of respiratory distress. CHEST/AXILLA: Chest movement symmetrical. No deformities noted. ABDOMEN/GI: No distension BACK: Increased pain with movement. Diffuse lumbar tenderness. No myofascial spasm noted. SKIN: [place], warm and dry. No rash noted. MS/EXTREMITY: No swelling, no deformities. Moving extremities appropriately. NEURO: Alert and appears oriented. Speech is fluent. Cranial Nerves are grossly intact. PSYCH: Alert, pleasant, affect is calm
--- NOTE | 2024-10-10 16:36 | Hospitalist Progress Note ---
Date of Service October 10, 2024 Assessment & Plan (1) Severe back pain: Plan: (1) Severe back pain: Plan: 79 yo F with type 2 diabetes, dyslipidemia, paroxysmal SVT, hypertension, GERD, osteoarthritis of both knees, AML, generalized anxiety disorder, spinal stenosis of lumbar region, persistent insomnia who was recently in the hospital for lumbar spine compression fracture and discharged to rehab comes back with severe back pain. Patient states at rehab she was having a lot of constipation and stool softeners were given since then she had a lot of back pain. The stool softeners relieved her constipation but the back pain got worse. She could not tolerate the back pain this reason she was came to the hospital today. She thinks she might had fever. Denies any bowel incontinence. She says sometimes she gets bladder incontinence but it is nothing new. Pain is not shooting down the legs. Ambulating with a walker but now the pain got worse. Denies any chest pain. No shortness of breath. No cough. No headache. No runny nose or sore throat. No difficulty swallowing. Last couple of days appetite is down. Last chemo was in August. She was supposed to get chemo on 09/29/2024 but because she is rehab it was held. Currently while resting seems comfortable and hemodynamics are okay. Severe back pain L1 and L3 compression fractures Staph epidermidis bacteremia Bilateral iliopsoas muscle fluid collections, likely infected Coming from rehab CT scan done in the ER shows same L1 L3 compression fractures patient's back pain not responding with pain management Discussed with Dr. Bergman (orthospine) In light of possible bacteremia, recommend repeat MRI of the spine Continue pain control, PT OT 10/12 MRI Lumbar spine reviewed: + fluid collections, edema iliopsoas, bilateral, likely infected Discussed with Dr. Bergman, agree with possible infected fluid collections around the lumbar spine Broaden antibiotic coverage with Zosyn in addition to daptomycin 10/[address] Bergman, recommend IR drainage of fluid collection in the lumbar spine Discussed with SARAH Rodriguez, IR drainage performed 10/16 Fluid drainage culture: positive for Staph epi - contacted ID - recommend to switch to vancomycin dose for poss. meningitis - discussed w/ pharmacy. dapto stopped, also zosyn to be stopped Dr. Bergman also updated - discussed with - no surgical intervention recommended further recommendations as per Dr. Bergman and ID Per ID Please continue on IV vancomycin to be adjusted based on vancomycin trough/AUC. She will require at least 6 to 8 weeks of IV antibiotics. I would also recommend repeating the MRI of the lumbar spine towards the end of treatment course. We would appreciate further assessment by the spine surgery for possible surgical intervention. Called lab to get sensitivities from [facility] obtained - sensitivities are back -> contacted ID - they plan to leave an updated note. Also discussed PICC line with ID and with the pt. Final ID recommendation pending 10/23 Final ID service recommendations: Patient admitted at [facility]: Since the spine surgical team is not planning for any surgical intervention, I would recommend continuing on IV vancomycin to complete a course of 8 weeks with anticipated end date of December 03, 2024. We will repeat MRI of the spine in 6 weeks from today. 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 MicrobiologyStaphylococcus epidermidis AntibioticVancomycin Dose per Pharmacy for Goal AUC 400-600 mg/L/hr End DateDec 03, 2024 Vascular access: Do not remove PICC line until the infectious disease physician approves Recommended followup imaging studies: MRI lumbar spine (Ordered by me in [employer] system) LABORATORY MONITORING: Lab TestFrequencyEnd Date BMP CBC with diff Vancomycin level(s) for AUC monitoringQ weekDec 03, 2024 PROVIDERS: Following ID PhysicianID clinic follow-up date José Manuel Magaña weeks Patient having severe back pain today Add Tylenol 1 g 3 times daily scheduled Patient also having confusion likely secondary to delirium, possible hospital delirium, medication related DC Ativan Lower dose of Dilaudid IV Delirium prevention strategies Discussed with RN Staph epidermidis bacteremia Initial blood culture (10/07): Staph epidermidis 1 out of 2 bottles Repeat blood cultures (10/10): Staph epidermidis 1 out of 2 bottles Echocardiogram: No mention of possible vegetation ID service recommends removal of indwelling port, port removed on 10/14 third set of blood cultures (10/15): NEGATIVE Lower abdominal Discomfort UA: Negative for UTI KUB: No obstruction, minimal fecal load -- resolved Hypokalemia replace and monitor AML undergoing chemotherapy History of pancytopenia WBC 6.5. Hemoglobin 10.1. Platelets 340 Currently undergoing monthly chemotherapy with decitabine/venetoclax Last chemo was in August. This month chemo was delayed because patient was in rehab Has appointment with Dr. Gaines on 10/29/2024 per last admission Continue suppressive antibiotics Levaquin, voriconazole and acyclovir 10/14 CBC stable Discussed with Dr. Gaines, patient is in remission from AML according to her she agrees with a port removal discussion of further chemotherapy with patient and family after patient recovers from this episode 10/[address] Gaines may DC prophylactic Levaquin but continue acyclovir Hypertension On amlodipine. Last admit amlodipine was held for soft blood pressures Continue amlodipine for now. On furosemide with potassium supplements -- hold Lasix for now as patient is on the dry side Hyperlipidemia On statin Anxiety/depression On citalopram and buspirone Diabetes Diet controlled current HbA1c levels: 6.4 Sliding scale for now Recent A port placement supposed to followup with general surgery for evaluation Gen Surg consulted -- (+) bacteremia -- ID service consulted, recommend removal of port A-port removed 10/14/2024 DVT prophylaxis Lovenox Disposition Med Surg Full Code Disposition pending lives at home PT/OT eval Admission and Anticipated Discharge Date Admission Date: October 08, 2024 Subjective seen resting in bed, sitting up, alert, oriented x 1-2 reports being taken downstairs last night for PT since then, her back has been sore, prior to that, back pain has been improving No leg weakness or numbness No other new symptoms Review of Systems Review of Systems: all noted and negative except for above Physical Exam Physical Exam: General- oriented x 2, not in distress, speaks in sentences with no effort or accessory muscle use Eyes- anicteric Neck- no JVD Lungs- clear breath sounds bilaterally, no rales/wheezes Heart- normal rate, regular rhythm; no murmurs Abdomen- normal bowel sounds, nondistended, soft, nontender Extremities- no pretibial edema, no calf tenderness Neuro- alert, oriented x 2; no gross focal neurologic deficits Skin- warm & dry Results & Data Results & Data Vital Signs (Past 12 Hours) Vital Signs Temp Pulse Pulse Resp BP BP Pulse Ox 10/10/24 16:03 36.6 C 94 H 17 124/69 94 10/10/24 11:58 36.7 C 93 H 17 111/72 95 10/10/24 08:14 36.5 C 88 18 155/77 H 96 10/10/24 06:04 83 O2 Del Method 10/10/24 16:03 Room Air 10/10/24 11:58 Room Air 10/10/24 08:14 Room Air 10/10/24 06:04 all noted and reviewed including below
[2024-10-10] MEDS: ACETAMINOPHEN 1,000 MG/100 ML VIAL IV STA (21:02)
[2024-10-11 07:17] LABS: Creatinine Clr Calc Pharmacy 111.4 ml/min
[2024-10-11] MEDS: DAPTOmycin 300 MG in SYRINGE 0 ML IV SCH (12:55)
--- NOTE | 2024-10-11 17:47 | Hospitalist Progress Note ---
Date of Service October 11, 2024 Assessment & Plan (1) Severe back pain: Plan: 79-year-old female with past medical history significant for type 2 diabetes, dyslipidemia, paroxysmal SVT, hypertension, GERD, osteoarthritis of both knees, AML, generalized anxiety disorder, spinal stenosis of lumbar region, persistent insomnia who was recently in the hospital for lumbar spine compression fracture and discharged to rehab comes back with severe back pain. Patient states at rehab she was having a lot of constipation and stool softeners were given since then she had a lot of back pain. The stool softeners relieved her constipation but the back pain got worse. She could not tolerate the back pain this reason she was came to the hospital today. She thinks she might had fever. Denies any bowel incontinence. She says sometimes she gets bladder incontinence but it is nothing new. Pain is not shooting down the legs. Ambulating with a walker but now the pain got worse. Denies any chest pain. No shortness of breath. No cough. No headache. No runny nose or sore throat. No difficulty swallowing. Last couple of days appetite is down. Last chemo was in August. She was supposed to get chemo on 09/29/2024 but because she is rehab it was held. Cur rently while resting seems comfortable and hemodynamics are okay. Severe back pain Recent L1 and L3 compression fractures Coming from rehab CT scan done in the ER shows same L1 L3 compression fractures Hemodynamically stable. Procalcitonin 2.5 Er empirically given cefepime which will be continued Will follow cultures Continue home pain regimen IV Dilaudid as needed for breakthrough pain Lidocaine patch Orthospine consult for further recommendations 10/09 Still having significant back pain today pain management service consulted Discussed with orthospine Dr. Bergman-continue with conservative management for now Discussed with patient's oncologist Dr. Gaines- okay to proceed with kyphoplasty if recommended, from our standpoint IV fluids bowel regimen 10/[address] Bermgan In light of possible bacteremia, recommend repeat MRI of the spine Continue pain control, PT OT Staph epidermidis bacteremia initial blood culture: Staph epidermidis 1 out of 2 bottles Repeat blood cultures: Positive for gram-positive cocci clusters 1 out of 2 bottles resume antibiotics, daptomycin IV Echocardiogram ordered Repeat MRI thoracic and lumbar spine ordered to rule out infection, discitis ID service consulted Lower abdominal Discomfort UA: Negative for UTI KUB: No obstruction, minimal fecal load -- resolved Hypokalemia Potassium ordered AML undergoing chemotherapy History of pancytopenia Today WBC 6.5. Hemoglobin 10.1. Platelets 340 Currently undergoing monthly chemotherapy with decitabine/venetoclax Last chemo was in August. This this month chemo was delayed because patient was in rehab Has appointment with Dr. Gaines on 10/29/2024 per last admission Continue suppressive antibiotics Levaquin, voriconazole and acyclovir 10/11 CBC seems to be stable Continue to monitor closely Hypertension On amlodipine. Last admit amlodipine was held for soft blood pressures Continue amlodipine for now. On furosemide with potassium supplements -- hold Lasix for now as patient is on the dry side Hyperlipidemia On statin Anxiety/depression On citalopram and buspirone Diabetes Diet controlled We will follow HbA1c levels: 6.4 Sliding scale for now Recent A port placement supposed to followup with general surgery for evaluation Gen Surg consulted -- (+) bacteremia may need to be exchanged DVT prophylaxis Lovenox Disposition MedSurg Full code. plan of care discussed with patient and her daughter Nadya in detail and at length all questions answered they are understanding, agreeable, comfortable with the plan of care Admission and Anticipated Discharge Date Admission Date: October 08, 2024 Subjective seen resting in bed, not in distress States back pain seem to have worsened today compared to yesterday No weakness or numbness Denies fevers or chills No abdominal pain or nausea No shortness of breath, chest pain, palpitations No other symptoms Review of Systems Review of Systems: all noted and negative except for above Physical Exam Physical Exam: General- oriented x 3, not in distress, speaks in sentences with no effort or accessory muscle use Eyes- anicteric Neck- no JVD Lungs- clear breath sounds BL Heart- normal rate, regular rhythm; no murmurs Abdomen- normal bowel sounds, nondistended, soft, nontender Extremities- no pretibial edema, no calf tenderness Neuro- alert, oriented x 3; no gross focal neurologic deficits Skin- warm & dry Results & Data Results & Data Vital Signs (Past 12 Hours) Vital Signs Temp Pulse Resp BP Pulse Ox O2 Del Method 10/11/24 15:14 36.9 C 94 H 20 122/71 91 Room Air 10/11/24 08:23 36.7 C 79 20 145/73 H 96 Room Air all noted and reviewed including below
[2024-10-11] MEDS: LORazepam 0.5 MG TAB PO PRN (21:38)
[2024-10-12 06:15] LABS: Hematocrit (blood only) 28.9 % (37.0-47.0); Hemoglobin 9.2 g/dl (12.0-16.0); Immature Granulocytes # (auto) 0.07 K/uL (0.01-0.20); Immature Granulocytes % (auto) 1.3 %; Mean Corpuscular Hemoglobin 31.1 pg (25.0-34.0); Mean Corpuscular Volume 97.6 fL (80.0-100.0); Platelet Count 281 K/uL (130-400); RDW Standard Deviation 55.2 fL (36.4-46.3); Red Blood Count 2.96 M/uL (4.20-5.40); White Blood Count 5.56 K/ul (4.8-10.8)
[2024-10-12 06:39] LABS: Alanine Aminotransferase 23.0 U/L (7-52); Albumin Globulin Ratio 0.9 (0.9-2); Alkaline Phosphatase 91.0 U/L (34-104); Anion Gap 10.0 (3-11); Bilirubin,Total 0.4 mg/dl (0.2-1.0); Blood Urea Nitrogen 11.0 mg/dl (6-23); Calcium 8.6 mg/dl (8.6-10.3); Carbon Dioxide 28.0 mmol/L (21-32); Chloride 102.0 mmol/L (98-107); Creatinine Clr Calc Pharmacy 114.6 ml/min; Globulin 3.4 gm/dl (2.5-4.0); Glucose 111.0 mg/dl (70-99(Fasting)); Potassium 2.9 mmol/L (3.5-5.1); Sodium 140.0 mmol/L (136-145); Total Protein 6.5 gm/dl (6.0-8.3)
[2024-10-12] MEDS: POTASSIUM CHLORIDE 10 MEQ TABCR PO SCH (09:00)
--- NOTE | 2024-10-12 14:39 | Magnetic Resonance Report ---
MRI OF THE LUMBAR SPINE WITHOUT IV CONTRAST CLINICAL HISTORY: Low back pain. Known compression fractures. Clinical concern for infection. COMPARISON STUDY: MRI of the lumbar spine dated 09/25/2024. CT of the lumbar spine dated 10/07/2024. TECHNIQUE: MRI of the lumbar spine is performed utilizing various T1 and T2-weighted sequences in the axial and sagittal planes. IV contrast was not administered for this examination. The examination is degraded by motion artifact. FINDINGS: Lumbar spine: Marrow signal intensity is heterogeneous. Again seen is a moderate compression deformit y of L1. Fragments are retropulsed that the 7 mm. A mild superior end plate compression deformity is seen in L2 and a mild inferior endplate compression deformity is seen in L3. These fractures are unch anged from the 09/27/2024 CT scan. The L2 fracture is new from 09/25/2024. These fractures all show persi stent marrow edema. No new fracture is identified involving the lumbar spine. Vertebral body height a t T12, L4, and L5 is maintained. There is 5 mm of anterolisthesis at L4-L5. Alignment is otherwise pr eserved. The transverse and spinous processes appear intact. There is no evidence of spondylolysis. N o destructive bony lesion is seen. Chronic degenerative endplate change is seen at all lumbar levels. Intervertebral discs: There is nonspecific fluid within the disc spaces at L1-L2, L4-L5, and L5-S1. T his is similar to the 09/25/2024 examination and may be on a posttraumatic/degenerative basis. There is moderate to severe loss of height at L4-L5 and L5-S1. Only mild loss of height is seen at the remain ing levels. Spinal cord: The imaged spinal cord is normal in morphology and signal intensity. The conus medullari s terminates at the level of L2. The nerve roots of the cauda equina are normal in morphology. T12-L1: The central canal and neural foramina a grossly patent. L1-L2: Fragments at L1 are retropulsed by up to 7 mm. This moderately effaces the the anterior aspec t of the thecal sac. The minimum AP canal diameter at this level measures 8 mm. There are likely infe rior extruded disc/bone fragments extend left which impinges the traversing left-sided nerve roots. G iven the fluid collections in the adjacent iliopsoas musculature, a component of epidural fluid colle ction at this site is not excluded. Lateral disc bulges/bony fragments likely contribute to moderate to severe bilateral neural foraminal stenosis. L2-L3: There is broad-based posterior disc bulge which abuts the transiting nerve roots. No significa nt central canal stenosis is seen. Lateral disc bulges cause mild bilateral subarticular stenosis. Fa cet arthropathy is of no consequence. No significant neural foraminal stenosis is seen. L3-L4: There is broad-based posterior disc bulge which abuts the transiting nerve roots. No significa nt central canal stenosis is seen. Lateral disc bulges cause mild bilateral subarticular stenosis. In conjunction with facet arthropathy there is mild left neural foraminal stenosis. The right neural fo ramen is patent. L4-L5: There is broad-based posterior disc bulge which abuts the transiting nerve roots. In conjuncti on with hypertrophy of the ligamentum flavum and anterolisthesis there is mild central canal stenosis at this level with a minimum AP canal diameter of 7 mm. Lateral disc bulges cause bilateral subartic ular stenosis, right side greater than left. This may impinge on the exiting right L4 nerve root. In conjunction with facet arthropathy there is moderate to severe right and mild left neural foraminal s tenosis. L5-S1: There is minimal posterior disc bulge. The central canal is clear. Lateral disc bulges because bilateral subarticular stenosis. In conjunction with facet arthropathy there is mild left greater th an right neural foraminal stenosis. Sacrum: Imaged portions of sacrum show normal morphology and signal intensity. Soft tissues: There is fatty atrophy of the paraspinous and iliopsoas musculature. Mild paravertebral edema is seen at the fracture levels. There is significant edema within the psoas musculature bilate rally. Fluid collections within the psoas muscles are new from 09/25/2024. A 2.4 x 1.4 cm collection in the right psoas muscle is seen on image #9 at the level of L1, and smaller collections within the le ft psoas muscle seen on images #[id number] at the levels L1-L2 measure up to 1.3 cm. IMPRESSION: 1. Again seen are subacute compression fractures of L1, L2, and L3 as detailed above. The L2 fracture is new from 09/25/2024. These fractures show marrow edema, and loss of height is similar to the 025 examination. 2. No new fracture is seen. 3. There is marked edema within the psoas musculature bilaterally with bilateral fluid collections wi thin the psoas muscles at L1 and L2. These are new from 09/25/2024 and pathologically indeterminate. Th rochelle could represent hematoma, with abscesses not excluded. Clinical correlation will be essential. 4. There is increasing retropulsion of fragments at L1 with moderate effacement of the anterior theca l sac. There is also likely inferiorly extruded disc/bone fragments eccentric to the left which impin ge on the transit left-sided nerve roots. Given the presence of fluid collections within the adjacent iliopsoas musculature, a component of epidural fluid collection at this level is not excluded. 5. Laterally extruded disc fragments and/or bone fragments at L1 likely causes moderate to severe sabine ateral neural foraminal stenosis at L1-L2. 6. There is nonspecific fluid within the discs at L1-L2, L4-L5, and L5-S1, which is similar in appear ance to previous and may be on a posttraumatic/degenerative basis. Given the clinical concern, infect ion would be impossible to entirely exclude and clinical correlation will be essential. 7. Spondylotic change as above. See discussion for detailed level by level analysis. Electronically signed by: Lit Franco M.D. 10/12/2024 2:37 PM
--- NOTE | 2024-10-12 14:45 | Magnetic Resonance Report ---
MRI OF THE THORACIC SPINE WITHOUT IV CONTRAST CLINICAL HISTORY: Thoracic back pain. Clinical concern for infection. COMPARISON STUDY: CT of the thoracic spine dated 10/07/2024. TECHNIQUE: MRI of the thoracic spine is performed utilizing various T1 and T2-weighted sequences in a xial and sagittal planes. IV contrast was not administered for this examination. The examination is c ompromised by motion artifact. FINDINGS: Vertebral body height and alignment are maintained throughout the thoracic spine. Marrow si gnal intensity is heterogeneous. There are compression deformities of L1 and L2 with marrow edema. Re tropulsion of fragments is seen at L1. See report of today's lumbar spine MRI for detailed lumbar fin dings. There is no MRI evidence of acute or subacute fracture involving the thoracic spine. The spino us processes appear intact. No destructive bony lesion is clearly seen. A small hemangioma is inciden tally noted in the body of T7. Tiny anterior osteophytes are seen throughout. Disc desiccation and mi ld loss of height is seen throughout the thoracic region. There is no disc herniation or central pita l stenosis seen throughout the thoracic spine. The thoracic spinal cord is normal in morphology and s ignal intensity. There is no MRI evidence of significant high-grade neural foraminal stenosis through out the thoracic region. This is suboptimally assessed due to motion artifact. There is fatty atrophy of the paraspinous musculature. Fluid collections within the psoas musculature in the lumbar region are discussed on today's lumbar spinal MRI. No pleural effusion is identified. IMPRESSION: 1. No acute bony abnormality is seen involving the thoracic spine. 2. There are compression deformities at L1 and L2 with corresponding marrow edema and fluid collectio ns in the adjacent psoas musculature. See report of today's lumbar MRI for detailed findings. 3. There is no disc herniation or central canal stenosis throughout the thoracic region. Electronically signed by: Lit Franco M.D. 10/12/2024 2:43 PM
[2024-10-12] MEDS: 4.5GM X1 IV STA (16:25)
[2024-10-12] MEDS: SODIUM CHLORIDE 0.9% 1,000 ML IV SCH (16:25)
--- NOTE | 2024-10-12 19:18 | Hospitalist Progress Note ---
Date of Service October 12, 2024 delayed entry date of service noted above Assessment & Plan (1) Severe back pain: Plan: 79-year-old female with past medical history significant for type 2 diabetes, dyslipidemia, paroxysmal SVT, hypertension, GERD, osteoarthritis of both knees, AML, generalized anxiety disorder, spinal stenosis of lumbar region, persistent insomnia who was recently in the hospital for lumbar spine compression fracture and discharged to rehab comes back with severe back pain. Patient states at rehab she was having a lot of constipation and stool softeners were given since then she had a lot of back pain. The stool softeners relieved her constipation but the back pain got worse. She could not tolerate the back pain this reason she was came to the hospital today. She thinks she might had fever. Denies any bowel incontinence. She says sometimes she gets bladder incontinence but it is nothing new. Pain is not shooting down the legs. Ambulating with a walker but now the pain got worse. Denies any chest pain. No shortness of breath. No cough. No headache. No runny nose or sore throat. No difficulty swallowing. Last couple of days appetite is down. Last chemo was in August. She was supposed to get chemo on 09/29/2024 but because she is rehab it was held. Currently while resting seems comfortable and hemodynamics are okay. Severe back pain Recent L1 and L3 compression fractures Coming from rehab CT scan done in the ER shows same L1 L3 compression fractures Hemodynamically stable. Procalcitonin 2.5 Er empirically given cefepime which will be continued Will follow cultures Continue home pain regimen IV Dilaudid as needed for breakthrough pain Lidocaine patch Orthospine consult for further recommendations 10/09 Still having significant back pain today pain management service consulted Discussed with orthospine Dr. Bergman-continue with conservative management for now Discussed with patient's oncologist Dr. Gaines- mary to proceed with kyphoplasty if recommended, from our standpoint IV fluids bowel regimen 10/[address] Bergman In light of possible bacteremia, recommend repeat MRI of the spine Continue pain control, PT OT 10/12 MRI Lumbar spine reviewed Discussed with Dr. Bergman, agree with possible infected fluid collections around the lumbar spine Broaden antibiotic coverage with Zosyn in addition to daptomycin He will be reviewing the MRI films and giving further recommendations in the morning Staph epidermidis bacteremia initial blood culture: Staph epidermidis 1 out of 2 bottles Repeat blood cultures: Staph epidermidis 1 out of 2 bottles resume antibiotics, daptomycin IV Echocardiogram ordered ID service consulted Lower abdominal Discomfort UA: Negative for UTI KUB: No obstruction, minimal fecal load -- resolved Hypokalemia Potassium ordered AML undergoing chemotherapy History of pancytopenia Today WBC 6.5. Hemoglobin 10.1. Platelets 340 Currently undergoing monthly chemotherapy with decitabine/venetoclax Last chemo was in August. This this month chemo was delayed because patient was in rehab Has appointment with Dr. Gaines on 10/29/2024 per last admission Continue suppressive antibiotics Levaquin, voriconazole and acyclovir 10/11 CBC seems to be stable Continue to monitor closely Hypertension On amlodipine. Last admit amlodipine was held for soft blood pressures Continue amlodipine for now. On furosemide with potassium supplements -- hold Lasix for now as patient is on the dry side Hyperlipidemia On statin Anxiety/depression On citalopram and buspirone Diabetes Diet controlled We will follow HbA1c levels: 6.4 Sliding scale for now Recent A port placement supposed to followup with general surgery for evaluation Gen Surg consulted -- (+) bacteremia may need to be exchanged DVT prophylaxis Lovenox Disposition MedSurg Full code. plan of care discussed with patient and her daughter Nadya in detail and at length all questions answered they are understanding, agreeable, comfortable with the plan of care Admission and Anticipated Discharge Date Admission Date: October 08, 2024 Subjective seen resting in bed, not in distress Still having back pain about the same No leg weakness or numbness No chest pain, shortness of breath No other new symptoms Review of Systems Review of Systems: all noted and negative except for above Physical Exam Physical Exam: General- oriented x 3, not in distress, speaks in sentences with no effort or accessory muscle use Eyes- anicteric Neck- no JVD Lungs- clear breath sounds bilaterally Heart- normal rate, regular rhythm; no murmurs Abdomen- normal bowel sounds, nondistended, soft, nontender Extremities- no pretibial edema, no calf tenderness Neuro- alert, oriented x 3; no gross focal neurologic deficits Skin- warm & dry Results & Data Results & Data Vital Signs (Past 12 Hours) Vital Signs Temp Pulse Resp BP Pulse Ox O2 Del Method 10/12/24 14:48 36.6 C 80 16 114/69 92 Room Air 10/12/24 09:00 Room Air 10/12/24 07:28 36.6 C 90 16 144/74 H 95 Room Air all noted and reviewed including below
[2024-10-12] MEDS: PIPERACILLIN/TAZOBACTAM 4.5 GM/100 ML BAG IV SCH (20:18)
[2024-10-13 06:10] LABS: Hematocrit (blood only) 28.2 % (37.0-47.0); Hemoglobin 9.0 g/dl (12.0-16.0); Immature Granulocytes # (auto) 0.07 K/uL (0.01-0.20); Immature Granulocytes % (auto) 1.1 %; Mean Corpuscular Hemoglobin 31.6 pg (25.0-34.0); Mean Corpuscular Volume 98.9 fL (80.0-100.0); Platelet Count 273 K/uL (130-400); RDW Standard Deviation 55.8 fL (36.4-46.3); Red Blood Count 2.85 M/uL (4.20-5.40); White Blood Count 6.47 K/ul (4.8-10.8)
[2024-10-13] MEDS ORDERED: Nursing to Pharmacy Communication SCH (06:30)
[2024-10-13 06:37] LABS: Alanine Aminotransferase 27.0 U/L (7-52); Albumin Globulin Ratio 0.9 (0.9-2); Alkaline Phosphatase 100.0 U/L (34-104); Anion Gap 9.0 (3-11); Bilirubin,Total 0.4 mg/dl (0.2-1.0); Blood Urea Nitrogen 11.0 mg/dl (6-23); Calcium 8.7 mg/dl (8.6-10.3); Carbon Dioxide 27.0 mmol/L (21-32); Chloride 104.0 mmol/L (98-107); Creatinine Clr Calc Pharmacy 92.8 ml/min; Globulin 3.6 gm/dl (2.5-4.0); Glucose 128.0 mg/dl (70-99(Fasting)); Potassium 3.6 mmol/L (3.5-5.1); Sodium 140.0 mmol/L (136-145); Total Protein 6.7 gm/dl (6.0-8.3)
[2024-10-13] MEDS: INSULIN ASPART PER UNIT CHARGE SC SCH ×2 (12:45→17:38)
--- NOTE | 2024-10-13 13:59 | Infectious Disease Consult ---
Date of Service October 13, 2024 Telehealth Information I performed this visit using a real-time telehealth connection between my location and the patients location ([facility]). After connecting through interactive tele-video, patient was identified by name and date of and/or wristband check.Patient (or authorized healthcare architectural representative) was informed that this was a telemedicine visit and it was being conducted confidentially over secure lines. My office door was closed and no o ne else was present in the room with me.Patient (or authorized healthcare architectural representative) provided consent to proceed with the visit, expressed an understanding of privacy and security of the telemedicine visit, and gave permission to have a hospital architectural representative in the room in order to assist with the visit and to conduct portions of the visit, as needed. I informed the patient (or authorized healthcare architectural representative) that I reviewed their record and presented the opportunity for them to ask any questions regarding the visit today. The patient agreed to participate. Assessment & Plan (1) Back pain: Plan: The CONS that was recovered from the patient's BCX may or may not be related to her complaint of back pain. Since she has an indwelling Port with CONS growing in two separate sets, I recommend to remove the Port. (There is a possibility that the CONS could represent contamination so if there is a strong objection to Port removal then contact ID to discuss salvage). Regarding the patient's back pain, she needs cultures (bacterial, fungal & AFB) JAYLEEN. Repeat BCX q48h until clear. The patient needs an ECHO - starting with a TTE. Given the presence of possible bacteremia, I recommend to continue with IV ABX (vancomycin plus Zosyn). All orders are deferred to the primary/requesting service. Recommendations were communicated to and/or discussed with the primary/requesting service. These recommendations are not final. For subsequent recommendations, use the on-call schedule to find out which ID provider is covering your facility. History of Present Illness History of Present Illness The patient was admitted for low back pain (in the context of recent chemotherapy ). Imaging showed, "...edema within the psoas musculature bilaterally with bilateral fluid collections within the psoas muscles at L1 and L2...a component of epidural fluid collection...is not excluded...nonspecific fluid within the discs at L1-L2, L4-L5, and L5-S1..." The patient denies any spinal hardware. Allergies Allergy/AdvReac Type Severity Reaction Status Date / Time No Known Allergies Allergy Mild Verified 09/17/24 11:27 Home Medications Medication Instructions Recorded Confirmed Type acetaminophen 500 mg tablet 1,000 mg PO Q8 PRN .FEVER/MILD 11/17/19 10/07/24 History PAIN 1-4 citalopram 10 mg tablet 10 mg PO QAM 01/09/24 10/07/24 History gabapentin 100 mg capsule 100 mg PO BID 01/09/24 10/07/24 History voriconazole 200 mg tablet 200 mg PO Q12 01/30/24 10/07/24 History ondansetron HCl 4 mg tablet 4 mg PO Q6H PRN Nausea And 02/02/24 10/07/24 Rx Vomiting #30 tabs amlodipine 10 mg tablet 5 mg PO QAM 08/26/24 10/07/24 History furosemide 20 mg tablet 10 mg PO Q OTHER DAY 08/26/24 10/07/24 History potassium chloride 10 mEq 10 meq PO Q OTHER DAY 08/26/24 10/07/24 History tablet,extended release atorvastatin 20 mg tablet 20 mg PO HS 09/10/24 10/07/24 History decitabine 50 mg intravenous 0 mg IV MONTHLY 09/10/24 10/07/24 History solution levofloxacin 500 mg tablet 500 mg PO QAM 09/25/24 10/07/24 History lorazepam 0.5 mg tablet 0.5 mg PO DAILY PRN Insomnia 09/25/24 10/07/24 History polyethylene glycol 3350 17 gram 17 g PO BID #1 ea 10/01/24 10/07/24 Rx oral powder packet (Miralax) sennosides 8.6 mg-docusate sodium 1 tab PO BID #1 tab 10/01/24 10/07/24 Rx 50 mg tablet (Senokot-S) acyclovir 400 mg tablet 400 mg PO BID 10/07/24 10/07/24 History buspirone 5 mg tablet 5 mg PO AMHS 10/07/24 10/07/24 History melatonin 5 mg tablet 5 mg PO HS PRN Insomnia 10/07/24 10/07/24 History oxycodone 5 mg tablet 5 mg PO Q6H PRN pain 5-8 10/07/24 10/07/24 History oxycodone 5 mg tablet 10 mg PO Q6H PRN pain 9-10 10/07/24 10/07/24 History tramadol 50 mg tablet 50 mg PO BID PRN pain 5-10 10/07/24 10/07/24 History Patient History Medical History Compression fracture of L1 vertebra Pericardial effusion History of - 02/2024- evaluated by S cardio- felt related to AML and/or chemo treatments- repeat ECHOs showed improvement (most recent ECHO 05/2024) Lumbar spondylosis Biceps tendinitis of right shoulder Anxiety HTN (hypertension) Diabetes mellitus type II, controlled no meds most recent Hgb A1C 12/2024 was 7.5 History of cellulitis 12/2023 per records Hx of acute respiratory failure (01/2024) had been at [place], transferred to [facility]- resolved AML (acute myeloblastic leukemia) (12/2023) [facility]- dr. oliver- gets chemo 1 week every month unless wbc is off, last chemo was week of august 31. has blood drawn weekly at [facility] SVT (supraventricular tachycardia) (2004) History of SVT- s/p 2004- no issues since. Sciatica Elevated cholesterol Controlled with statin Surgical History History of insertion of tunneled central venous catheter (CVC) with port (01/2024) right side armstrong cath placed in [place] History of left knee replacement (2019) History of bone marrow biopsy (07/17/24) x3- [place] and [facility] S/P epidural steroid injection sciatica History of appendectomy (1967) H/O cardiac radiofrequency ablation (2004) 2004 H/O: hysterectomy (1989) [facility] with BSO Family History Father Cancer Other Coronary heart disease Diabetes Leukemia No family history of adverse response to anesthesia Social History Smoking Status: Never smoker Second Hand Exposure: No; Do You Dip or Chew Tobacco: No; Hx Alcohol Use: Yes Alcohol type: wine Hx Substance Use: No Preferred Language: Ghanaian Communication Ability: Effective Visual Impairment: No Limitations 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 Required: No Beliefs That Will Affect Care: None marital status: Current Living Situation: Family Current Living Situation Comment: lives w/daughter & grandson Feels Safe at Home: Yes Assistive Devices: Cane and Walker Review of Systems As reviewed in HPI; a complete ROS was otherwise negative Physical Exam Vitals: see EMR Exam limited due to constraints of telemedicine Gen/Constitutional: appears at stated age, NAD, nontoxic Head: AT, NC Eyes: sclera anicteric, no conjunctival injection ENT: MMM, trachea midline Card: appears to be well-perfused Resp: not tachypneic, nml effort, symmetric chest rise, no accessory muscle use Derm: no visible diaphoresis, no visible rash, no visible jaundice Results & Data Vital Signs (Past 12 Hours) Vital Signs Temp Pulse Pulse Pulse Resp BP BP 10/13/24 13:25 36.7 C 82 17 117/70 10/13/24 13:01 36.6 C 79 18 137/75 10/13/24 12:38 36.7 C 84 16 138/74 10/13/24 11:24 36.7 C 85 18 117/68 10/13/24 07:17 36.8 C 87 17 124/69 Pulse Ox O2 Del Method 10/13/24 13:25 97 Room Air 10/13/24 13:01 98 Room Air 10/13/24 12:38 Room Air 10/13/24 11:24 97 Room Air 10/13/24 07:17 97 Room Air Laboratory Results SEE EMR Diagnostic Findings SEE EMR
--- NOTE | 2024-10-13 14:22 | CT Scan Report ---
CT GUIDED RIGHT PSOAS FLUID COLLECTION ASPIRATION CLINICAL HISTORY: Right psoas muscle fluid collection COMPARISON: MR lumbar spine PROCEDURE: Procedure and risks were explained. Informed consent was obtained. A final timeout was com pleted. The patient was placed in a prone position on the CT exam table. The lumbar region was preppe d and draped in sterile fashion. 1% lidocaine was utilized for skin anesthesia. Utilizing CT guidance, a 20-gauge and 18-gauge Chiba needle was advanced into the right psoas muscle fluid collection. 2 aspirates yielding scant bloody particulate fluid was obtained and sent to the la b for culture analysis. The needle was removed and Band-Aid applied. The patient tolerated the proced ure well. Vital signs will be monitored postprocedure. IMPRESSION: Right psoas muscle fluid collection aspiration as above. Performed, dictated, and signed by Abhi Rodriguez PA-C; to be co-signed by Dr. Lit Franco. Electronically signed by: Lit Franco M.D. 10/13/2024 2:27 PM
--- NOTE | 2024-10-13 15:01 | XCELERA ---
[id number] \\[id number]
--- NOTE | 2024-10-13 17:18 | Hospitalist Progress Note ---
Date of Service October 13, 2024 Assessment & Plan (1) Severe back pain: Plan: 79-year-old female with past medical history significant for type 2 diabetes, dyslipidemia, paroxysmal SVT, hypertension, GERD, osteoarthritis of both knees, AML, generalized anxiety disorder, spinal stenosis of lumbar region, persistent insomnia who was recently in the hospital for lumbar spine compression fracture and discharged to rehab comes back with severe back pain. Patient states at rehab she was having a lot of constipation and stool softeners were given since then she had a lot of back pain. The stool softeners relieved her constipation but the back pain got worse. She could not tolerate the back pain this reason she was came to the hospital today. She thinks she might had fever. Denies any bowel incontinence. She says sometimes she gets bladder incontinence but it is nothing new. Pain is not shooting down the legs. Ambulating with a walker but now the pain got worse. Denies any chest pain. No shortness of breath. No cough. No headache. No runny nose or sore throat. No difficulty swallowing. Last couple of days appetite is down. Last chemo was in August. She was supposed to get chemo on 09/29/2024 but because she is rehab it was held. Cur rently while resting seems comfortable and hemodynamics are okay. Severe back pain Recent L1 and L3 compression fractures Coming from rehab CT scan done in the ER shows same L1 L3 compression fractures Hemodynamically stable. Procalcitonin 2.5 Er empirically given cefepime which will be continued Will follow cultures Continue home pain regimen IV Dilaudid as needed for breakthrough pain Lidocaine patch Orthospine consult for further recommendations 10/09 Still having significant back pain today pain management service consulted Discussed with orthospine Dr. Bergman-continue with conservative management for now Discussed with patient's oncologist Dr. Gaines- okay to proceed with kyphoplasty if recommended, from our standpoint IV fluids bowel regimen 10/[address] Bergman In light of possible bacteremia, recommend repeat MRI of the spine Continue pain control, PT OT 10/12 MRI Lumbar spine reviewed Discussed with Dr. Bergman, agree with possible infected fluid collections around the lumbar spine Broaden antibiotic coverage with Zosyn in addition to daptomycin He will be reviewing the MRI films and giving further recommendations in the morning 10/[address] Bergman, recommend IR drainage of fluid collection in the lumbar spine Discussed with SARAH Rodriguez, IR drainage to be performed today with Submission of specimen for cultures Staph epidermidis bacteremia initial blood culture: Staph epidermidis 1 out of 2 bottles Repeat blood cultures: Staph epidermidis 1 out of 2 bottles resume antibiotics, daptomycin IV Echocardiogram ordered ID service consulted 10/13 Echocardiogram: No mention of possible vegetation ID service recommends removal of indwelling port repeat blood cultures tomorrow continue IV daptomycin plus Zosyn Lower abdominal Discomfort UA: Negative for UTI KUB: No obstruction, minimal fecal load -- resolved Hypokalemia Potassium ordered AML undergoing chemotherapy History of pancytopenia Today WBC 6.5. Hemoglobin 10.1. Platelets 340 Currently undergoing monthly chemotherapy with decitabine/venetoclax Last chemo was in August. This this month chemo was delayed because patient was in rehab Has appointment with Dr. Gaines on 10/29/2024 per last admission Continue suppressive antibiotics Levaquin, voriconazole and acyclovir 10/11 CBC seems to be stable Continue to monitor closely Hypertension On amlodipine. Last admit amlodipine was held for soft blood pressures Continue amlodipine for now. On furosemide with potassium supplements -- hold Lasix for now as patient is on the dry side Hyperlipidemia On statin Anxiety/depression On citalopram and buspirone Diabetes Diet controlled We will follow HbA1c levels: 6.4 Sliding scale for now Recent A port placement supposed to followup with general surgery for evaluation Gen Surg consulted -- (+) bacteremia -- ID service consulted, recommend removal of port DVT prophylaxis Lovenox Disposition MedSurg Full code. plan of care discussed with patient and her daughter Nadya in detail and at length all questions answered they are understanding, agreeable, comfortable with the plan of care Admission and Anticipated Discharge Date Admission Date: October 08, 2024 Subjective seen resting in bed, not in distress Still having back pain About the same as yesterday No fevers or chills No other new symptoms Review of Systems Review of Systems: all noted and negative except for above Results & Data Results & Data Vital Signs (Past 12 Hours) Vital Signs Temp Pulse Pulse Pulse Resp BP BP 10/13/24 15:21 36.6 C 83 16 117/69 10/13/24 14:08 36.6 C 79 16 113/70 10/13/24 13:25 36.7 C 82 17 117/70 10/13/24 13:01 36.6 C 79 18 137/75 10/13/24 12:38 36.7 C 84 16 138/74 10/13/24 11:24 36.7 C 85 18 117/68 10/13/24 08:45 10/13/24 07:17 36.8 C 87 17 124/69 Pulse Ox O2 Del Method 10/13/24 15:21 95 Room Air 10/13/24 14:08 98 Room Air 10/13/24 13:25 97 Room Air 10/13/24 13:01 98 Room Air 10/13/24 12:38 Room Air 10/13/24 11:24 97 Room Air 10/13/24 08:45 Room Air 10/13/24 07:17 97 Room Air all noted and reviewed including below
--- NOTE | 2024-10-13 19:53 | Surgery Consultation ---
Date of Consultation October 13, 2024 Assessment & Plan (1) Bacteremia: The patient was seen and examined in her room 304. Surgery recommendations are as follows: Review of infectious disease notes indicate that they recommend port removal. They also did note that if anyone has a strong preference for patient to remove this port ID should be reconsulted to discuss salvage We have tentatively placed the patient on the OR schedule tomorrow for Dr. Treviño of [facility] physician with general surgery for port removal The patient has been made n.p.o. after midnight She does take subcutaneous heparin which has been placed on hold Continue current antibiotics, antifungals, and antivirals which include acyclovir, Levaquin, voriconazole, daptomycin, and Zosynwill defer adjustment of antibiotics to the primary service as well as infectious disease service Additional recommendations were forthcoming based on her clinical course as unfolds History of Present Illness Reason for Consultation: Bacteremia, request a port removal Attending Physician: Melvin Poe MD History of Present Illness This is a 79-year-old female who has been hospitalized at [facility] secondary to 10/08/2024. The patient has been hospitalized secondary to severe back pain. Concern the patient's back pain she has noted to have recent fractures of L1 and L3 which are compression fractures. Patient has been seen in consultation by orthopedic/spine surgeon conservative management has been employed. Consideration is being given to have the patient undergo a kyphoplasty but the timing of such a procedure is yet to be determined. General surgery has been consulted as patient is noted to have bacteremia and h as a left subclavian a port. This left subclavian port was placed on 09/17/[address] Coreas. At the same time the patient was noted to have a right central venous Armstrong catheter which was removed. 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 Patient's culture data was reviewed and on 10/07/2024 patient had a blood culture positive for staph epidermidis. She had a repeat blood culture performed on 10/10/2024 which again showed staph epidermidis. These culture results were reviewed by infectious disease and they have since recommended the patient have her a port removed. Available imaging and diagnostic studies patient has had have been reviewed. She did have a transthoracic echo today that showed a 65% ejection fraction. There is no significant aortic stenosis. There is mild mitral regurgitation noted on the study. There is mild tricuspid regurgitation noted on this study. Most recent labs include a CBC white blood cell count platelet count were normal. Her hemoglobin and hematocrit were 9.0 and 28.2. Chemistry profile showed sodium and potassium as well as the BUN were normal. Her creatinine was not elevated at 0.4. Also of note during this admission the patient did have a fluid collection along the right psoas muscle and this was aspirated today by infectious disease. Diagnostic cultures were sent however are pending at the time of this dictation. At the time of my interview the patient continued to complain of back pain but was in no distress. Allergies Allergy/AdvReac Type Severity Reaction Status Date / Time No Known Allergies Allergy Mild Verified 09/17/24 11:27 Home Medications Medication Instructions Recorded Confirmed Type acetaminophen 500 mg tablet 1,000 mg PO Q8 PRN .FEVER/MILD 11/17/19 10/07/24 History PAIN 1-4 citalopram 10 mg tablet 10 mg PO QAM 01/09/24 10/07/24 History gabapentin 100 mg capsule 100 mg PO BID 01/09/24 10/07/24 History voriconazole 200 mg tablet 200 mg PO Q12 01/30/24 10/07/24 History ondansetron HCl 4 mg tablet 4 mg PO Q6H PRN Nausea And 02/02/24 10/07/24 Rx Vomiting #30 tabs amlodipine 10 mg tablet 5 mg PO QAM 08/26/24 10/07/24 History furosemide 20 mg tablet 10 mg PO Q OTHER DAY 08/26/24 10/07/24 History potassium chloride 10 mEq 10 meq PO Q OTHER DAY 08/26/24 10/07/24 History tablet,extended release atorvastatin 20 mg tablet 20 mg PO HS 09/10/24 10/07/24 History decitabine 50 mg intravenous 0 mg IV MONTHLY 09/10/24 10/07/24 History solution levofloxacin 500 mg tablet 500 mg PO QAM 09/25/24 10/07/24 History lorazepam 0.5 mg tablet 0.5 mg PO DAILY PRN Insomnia 09/25/24 10/07/24 History polyethylene glycol 3350 17 gram 17 g PO BID #1 ea 10/01/24 10/07/24 Rx oral powder packet (Miralax) sennosides 8.6 mg-docusate sodium 1 tab PO BID #1 tab 10/01/24 10/07/24 Rx 50 mg tablet (Senokot-S) acyclovir 400 mg tablet 400 mg PO BID 10/07/24 10/07/24 History buspirone 5 mg tablet 5 mg PO AMHS 10/07/24 10/07/24 History melatonin 5 mg tablet 5 mg PO HS PRN Insomnia 10/07/24 10/07/24 History oxycodone 5 mg tablet 5 mg PO Q6H PRN pain 5-8 10/07/24 10/07/24 History oxycodone 5 mg tablet 10 mg PO Q6H PRN pain 9-10 10/07/24 10/07/24 History tramadol 50 mg tablet 50 mg PO BID PRN pain 5-10 10/07/24 10/07/24 History Patient History Medical History Compression fracture of L1 vertebra Pericardial effusion History of - 02/2024- evaluated by S cardio- felt related to AML and/or chemo treatments- repeat ECHOs showed improvement (most recent ECHO 05/2024) Lumbar spondylosis Biceps tendinitis of right shoulder Anxiety HTN (hypertension) Diabetes mellitus type II, controlled no meds most recent Hgb A1C 12/2024 was 7.5 History of cellulitis 12/2023 per records Hx of acute respiratory failure (01/2024) had been at [place], transferred to [facility]- resolved AML (acute myeloblastic leukemia) (12/2023) [facility]- dr. oliver- gets chemo 1 week every month unless wbc is off, last chemo was week of august 31. has blood drawn weekly at [facility] SVT (supraventricular tachycardia) (2004) History of SVT- s/p 2004- no issues since. Sciatica Elevated cholesterol Controlled with statin Surgical History History of insertion of tunneled central venous catheter (CVC) with port (01/2024) right side armstrong cath placed in [place] History of left knee replacement (2019) History of bone marrow biopsy (07/17/24) x3- [place] and [facility] S/P epidural steroid injection sciatica History of appendectomy (1967) H/O cardiac radiofrequency ablation (2004) 2004 H/O: hysterectomy (1989) [facility] with BSO Family History Father Cancer Other Coronary heart disease Diabetes Leukemia No family history of adverse response to anesthesia Social History Smoking Status: Never smoker Second Hand Exposure: No; Do You Dip or Chew Tobacco: No; Hx Alcohol Use: Yes Alcohol type: wine Hx Substance Use: No Preferred Language: Irish Communication Ability: Effective Visual Impairment: No Limitations 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 This is not painful to palpation. Cardiovascular: Rate/Rhythm: regular rate and regular rhythm Gastrointestinal (Abdomen): Soft and nontender Musculoskeletal: No calf tenderness Neurologic: moves all extremities Psychiatric: A+Ox3, euthymic affect Results & Data Vital Signs (Past 12 Hours) Vital Signs Temp Pulse Pulse Pulse Resp BP BP 10/13/24 15:21 36.6 C 83 16 117/69 10/13/24 14:08 36.6 C 79 16 113/70 10/13/24 13:25 36.7 C 82 17 117/70 10/13/24 13:01 36.6 C 79 18 137/75 10/13/24 12:38 36.7 C 84 16 138/74 10/13/24 11:24 36.7 C 85 18 117/68 10/13/24 08:45 Pulse Ox O2 Del Method 10/13/24 15:21 95 Room Air 10/13/24 14:08 98 Room Air 10/13/24 13:25 97 Room Air 10/13/24 13:01 98 Room Air 10/13/24 12:38 Room Air 10/13/24 11:24 97 Room Air 10/13/24 08:45 Room Air PG Care Time/CCT Total # of Minutes Spent Total Time Spent with Patient: Total time spent is greater than 50% in coordination of care (as documented) at patient's floor/unit and/or counseling patient: Coding Level of Care Code 46125 INT INP/OBS CARE 2/55MIN Diagnoses Bacteremia R78.81
[2024-10-14] MEDS ORDERED: Nursing to Pharmacy Communication SCH ×2 (01:00→13:15)
[2024-10-14 06:20] LABS: Hematocrit (blood only) 28.9 % (37.0-47.0); Hemoglobin 9.0 g/dl (12.0-16.0); Immature Granulocytes # (auto) 0.06 K/uL (0.01-0.20); Immature Granulocytes % (auto) 1.1 %; Mean Corpuscular Hemoglobin 30.6 pg (25.0-34.0); Mean Corpuscular Volume 98.3 fL (80.0-100.0); Platelet Count 276 K/uL (130-400); RDW Standard Deviation 56.2 fL (36.4-46.3); Red Blood Count 2.94 M/uL (4.20-5.40); White Blood Count 5.45 K/ul (4.8-10.8)
[2024-10-14] MEDS: INSULIN ASPART PER UNIT CHARGE SC SCH ×2 (06:20→16:50)
[2024-10-14 06:49] LABS: Alanine Aminotransferase 21.0 U/L (7-52); Albumin Globulin Ratio 0.8 (0.9-2); Alkaline Phosphatase 99.0 U/L (34-104); Anion Gap 9.0 (3-11); Bilirubin,Total 0.4 mg/dl (0.2-1.0); Blood Urea Nitrogen 10.0 mg/dl (6-23); Calcium 8.8 mg/dl (8.6-10.3); Carbon Dioxide 27.0 mmol/L (21-32); Chloride 103.0 mmol/L (98-107); Creatinine Clr Calc Pharmacy 99.9 ml/min; Globulin 3.7 gm/dl (2.5-4.0); Glucose 119.0 mg/dl (70-99(Fasting)); Potassium 3.8 mmol/L (3.5-5.1); Sodium 139.0 mmol/L (136-145); Total Protein 6.8 gm/dl (6.0-8.3)
[2024-10-14] MEDS: LACTATED RINGER'S 1,000 ML IV SCH (09:44)
[2024-10-14] MEDS ORDERED: ONDANSETRON INJ 2 MG/ML 2 ML VIAL IV PRN (09:54)
[2024-10-14] MEDS ORDERED: ATROPINE SULFATE 0.1 MG/ML 10ML SYR IV PRN (09:54)
[2024-10-14] MEDS ORDERED: PROMETHAZINE HCL 6.25 MG in SODIUM CHLORIDE 0.9% 50 ML IV PRN (09:54)
--- NOTE | 2024-10-14 09:54 | Anesthesiology Consultation ---
Date of Service October 14, 2024 Assessment & Plan Chart Review Chart Review: Acceptable Risk for Surgery and Patient NOT seen in Pre Admission Testing Consults Requested none ASA ASA3 Proposed Anesthesia Anesthesia Type: MAC Risk / Benefits Reviewed With: PT / POA / Parent / Guardian, Accepts Plan and Informed Consent Obtained History Surgery Operation Date: 10/14/24 07:00 Proposed Procedures p Removal of Palmira Treviño, DO Height/Weight Height: 5 ft 3 in Weight: 53.161 kg Allergies Allergy/AdvReac Type Severity Reaction Status Date / Time No Known Allergies Allergy Mild Verified 09/17/24 11:27 Medications Home Medications Medication Instructions Recorded Confirmed Last Taken acetaminophen 500 mg tablet 1,000 mg PO Q8 PRN .FEVER/MILD 11/17/19 10/07/24 09/16/24 22:00 PAIN 1-4 citalopram 10 mg tablet 10 mg PO QAM 01/09/24 10/07/24 09/16/24 gabapentin 100 mg capsule 100 mg PO BID 01/09/24 10/07/24 09/16/24 22:00 voriconazole 200 mg tablet 200 mg PO Q12 01/30/24 10/07/24 09/16/24 ondansetron HCl 4 mg tablet 4 mg PO Q6H PRN Nausea And 02/02/24 10/07/24 09/15/24 Vomiting #30 tabs amlodipine 10 mg tablet 5 mg PO QAM 08/26/24 10/07/24 09/16/24 furosemide 20 mg tablet 10 mg PO Q OTHER DAY 08/26/24 10/07/24 09/25/24 potassium chloride 10 mEq 10 meq PO Q OTHER DAY 08/26/24 10/07/24 09/22/24 tablet,extended release atorvastatin 20 mg tablet 20 mg PO HS 09/10/24 10/07/24 09/16/24 decitabine 50 mg intravenous 0 mg IV MONTHLY 09/10/24 10/07/24 09/01/24 solution levofloxacin 500 mg tablet 500 mg PO QAM 09/25/24 10/07/24 09/24/24 lorazepam 0.5 mg tablet 0.5 mg PO DAILY PRN Insomnia 09/25/24 10/07/24 Unknown polyethylene glycol 3350 17 gram 17 g PO BID #1 ea 10/01/24 10/07/24 Unknown oral powder packet (Miralax) sennosides 8.6 mg-docusate sodium 1 tab PO BID #1 tab 10/01/24 10/07/24 Unknown 50 mg tablet (Senokot-S) acyclovir 400 mg tablet 400 mg PO BID 10/07/24 10/07/24 Unknown buspirone 5 mg tablet 5 mg PO AMHS 10/07/24 10/07/24 Unknown melatonin 5 mg tablet 5 mg PO HS PRN Insomnia 10/07/24 10/07/24 Unknown oxycodone 5 mg tablet 5 mg PO Q6H PRN pain 5-8 10/07/24 10/07/24 Unknown oxycodone 5 mg tablet 10 mg PO Q6H PRN pain 9-10 10/07/24 10/07/24 Unknown tramadol 50 mg tablet 50 mg PO BID PRN pain 5-10 10/07/24 10/07/24 Unknown Active Medications Generic Name Dose Route Start Last Admin Trade Name Freq PRN Reason Stop Dose Admin Acetaminophen 650 mg 10/08/24 03:00 10/13/24 12:46 Acetaminophen 325 Mg Tab PO 11/07/24 02:59 650 mg Q4H PRN Administration pain/fever Acyclovir 400 mg 10/08/24 09:00 10/13/24 20:17 Acyclovir 400 Mg Tab PO 11/07/24 08:59 400 mg BID BELGICA Administration Amlodipine Besylate 5 mg 10/08/24 09:00 10/13/24 08:45 Amlodipine Besylate 5 Mg Tab PO 11/07/24 08:59 5 mg QAM BELG[facility] Administration Atorvastatin Calcium 20 mg 10/08/24 21:00 10/10/24 21:08 Atorvastatin 20 Mg Tab PO 11/07/24 20:59 20 mg HS BELGICA Administration Buspirone HCl 5 mg 10/08/24 09:00 10/13/24 20:17 Buspirone 5 Mg Tab PO 11/07/24 08:59 5 mg AMHS BELGICA Administration Citalopram Hydrobromide 10 mg 10/08/24 09:00 10/13/24 08:45 Citalopram 20 Mg Tab PO 11/07/24 08:59 10 mg QAM [facility] Administration Enoxaparin Sodium 40 mg 10/08/24 09:00 10/13/24 08:46 Enoxaparin Inj 40 Mg/0.4 Ml Syr SQ 11/07/24 08:59 Not Given Q24H BELGICA Gabapentin 100 mg 10/08/24 09:00 10/13/24 20:17 Gabapentin 100 Mg Cap PO 11/07/24 08:59 100 mg BID BELGICA Administration Heparin Sodium (Porcine) 5 ml 10/08/24 03:04 10/12/24 05:22 Heparin 100 Unit/Ml 5ml Flush FLUSH 11/07/24 03:03 5 ml PRN PRN Administration Flush Hydromorphone HCl 1 mg 10/08/24 07:51 10/13/24 19:31 Hydromorphone Inj 1 Mg/Ml Syringe IV 10/22/24 02:59 1 mg Q4H PRN Administration Breakthrough Pain Promethazine HCl 6.25 mg in 50.25 mls @ 201 mls/hr 10/09/24 08:12 10/11/24 08:20 Phenergan IV 11/08/24 08:11 Infused Q6H PRN Infusion Nausea And Vomiting Daptomycin 300 mg/ Syringe 6 mls @ 3.25 mls/min 10/11/24 12:30 10/13/24 12:50 IV 10/25/24 12:29 3.25 mls/min Q24H BELGICA Administration Protocol Piperacillin Sod/Tazobactam Sod 4.5 gm in 100 mls @ 25 mls/hr 10/12/24 21:00 10/14/24 08:36 Zosyn IV 11/23/24 20:59 Infused Q8H [facility] Infusion Protocol Lactated Ringer's 1,000 mls @ 15 mls/hr 10/14/24 09:45 10/14/24 09:44 Lr IV 10/17/24 09:44 15 mls/hr .Q24H BELGICA Administration Insulin Aspart 0 units 10/14/24 06:00 10/14/24 06:20 Insulin Aspart Per Unit Charge SC 11/13/24 05:59 Not Given Q6 BELGICA Lactobacillus Acidophilus 1,250 mg 10/10/24 09:00 10/13/24 08:44 Advanced Probiotic 625 Mg Capsule PO 11/09/24 08:59 1,250 mg DAILY BELGICA Administration Levofloxacin 500 mg 10/08/24 09:00 10/13/24 08:44 Levofloxacin 500 Mg Tab PO 11/07/24 08:59 500 mg QAM BELG[facility] Administration Protocol Lidocaine 1 patch 10/08/24 09:00 10/13/24 08:46 Lidocaine 5% 1 Patch TD 11/07/24 08:59 Not Given QAM [facility]GICA Lorazepam 0.5 mg 10/08/24 03:00 10/11/24 21:38 Lorazepam 0.5 Mg Tab PO 11/07/24 02:59 0.5 mg DAILY PRN Administration Insomnia Miscellaneous 1 each 10/08/24 21:00 10/13/24 20:17 Remove Lidoderm Patch N/A 11/07/24 20:59 Not Given DAILY@2100 BELGICA Oxycodone HCl 5 mg 10/08/24 03:00 10/11/24 19:31 Oxycodone Hcl Ir 5 Mg Tab (Immediate Release) PO 10/22/24 02:59 5 mg Q6H PRN Administration pain 5-8 Oxycodone HCl 10 mg 10/08/24 03:00 10/13/24 12:45 Oxycodone Hcl Ir 5 Mg Tab (Immediate Release) PO 10/22/24 02:59 10 mg Q6H PRN Administration pain 9-10 Polyethylene Glycol 17 gm 10/08/24 09:00 10/13/24 20:17 Polyethylene (Miralax) 17 Gm Pack PO 11/07/24 08:59 Not Given BID [facility] Potassium Chloride 40 meq 10/12/24 09:00 10/13/24 20:17 Potassium Chloride 10 Meq Tabcr PO 11/11/24 08:59 40 meq BID [facility] Administration Senna/Docusate Sodium 1 tab 10/08/24 09:00 10/13/24 20:17 Docusate Sodium/Senna 50/8.6mg Tab PO 11/07/24 08:59 1 tab BID [facility] Administration Voriconazole 200 mg 10/08/24 09:00 10/13/24 20:17 Voriconazole 200 Mg Tablet PO 11/07/24 08:59 200 mg Q12 BELG[facility] Administration NPO Date Last Intake of Fluids: 10/13/24 Time Last Intake of Fluids: 22:00 Date Last Intake of Solids: 10/13/24 Time Last Intake of Solids: 22:00 Past Medical History Medical History Compression fracture of L1 vertebra Pericardial effusion History of - 02/2024- evaluated by S cardio- felt related to AML and/or chemo treatments- repeat ECHOs showed improvement (most recent ECHO 05/2024) Lumbar spondylosis Biceps tendinitis of right shoulder Anxiety HTN (hypertension) Diabetes mellitus type II, controlled no meds most recent Hgb A1C 12/2024 was 7.5 History of cellulitis 12/2023 per records Hx of acute respiratory failure (01/2024) had been at [place], transferred to [facility]- resolved AML (acute myeloblastic leukemia) (12/2023) [facility]- dr. oliver- gets chemo 1 week every month unless wbc is off, last chemo was week of august 31. has blood drawn weekly at [facility] SVT (supraventricular tachycardia) (2004) History of SVT- s/p 2004- no issues since. Sciatica Elevated cholesterol Controlled with statin Exercise / Class Metabolic Activity II 4-5 Yardwork/Stairs/Walk up hill Past Family History Family History Father Cancer Other Coronary heart disease Diabetes Leukemia No family history of adverse response to anesthesia Past Surgical History Surgical History History of insertion of tunneled central venous catheter (CVC) with port (01/2024) right side armstrong cath placed in [place] History of left knee replacement (2019) History of bone marrow biopsy (07/17/24) x3- [place] and [facility] S/P epidural steroid injection sciatica History of appendectomy (1967) H/O cardiac radiofrequency ablation (2004) 2004 H/O: hysterectomy (1989) [facility] with BSO Past Anesthesia History No Hx of Anesthesia Complications and No Family Hx of Anesthesia Complications History of PONV No Hx of PONV and No Hx of Motion Sickness Social History Smoking Status: Never smoker Do You Dip or Chew Tobacco: No Hx Alcohol Use: Yes Alcohol type: wine alcohol intake frequency: holidays/special occasions only Hx Substance Use: No substance use type: does not use Physical Exam Vital Signs Last Vital Signs Temp 36.5 C 10/14/24 09:35 Pulse 84 10/14/24 09:35 Resp 20 10/14/24 09:35 BP 152/76 H 10/14/24 09:35 Pulse Ox 95 10/14/24 09:35 O2 Del Method Room Air 10/14/24 09:35 ENMT Mouth: no dentition abnormality Thyromental Distance: > or= 3.5 Finger Breadths Mallampati Class: II Neck normal visual inspection Respiratory normal respiratory effort Auscultation: lungs clear to auscultation bilaterally Cardiovascular Rate/Rhythm: regular rate and regular rhythm Chest (Breasts) Chest: + vascular access device or port Psychiatric Orientation: alert Testing Laboratory Results 10/14/24 05:36 10/14/24 05:36 PT 11.6 Seconds (9.0-12.0) 10/07/24 20:09 INR 1.1 (0.9-1.1) 10/07/24 20:09 APTT 32 Seconds (21-31) H 10/07/24 20:09 Hemoglobin A1c 6.4 % (4.5-5.6) H 10/08/24 06:57 Urine Color Yellow 10/09/24 11:31 Urine Appearance Cloudy (Clear) A 10/09/24 11:31 Urine pH 7.5 (4.5-7.5) 10/09/24 11:31 Ur Specific [place] 1.008 (1.000-1.030) 10/09/24 11:31 Urine Protein Negative (Negative) 10/09/24 11:31 Urine Glucose (UA) Negative (Negative) 10/09/24 11:31 Urine Ketones Trace (Negative) H 10/09/24 11:31 Urine Nitrite Negative (Negative) 10/09/24 11:31 Ur Leukocyte Esterase Negative (Negative) 10/09/24 11:31 Urine WBC (Auto) 0-5 /hpf (0-5) 10/09/24 11:31 Urine RBC (Auto) 0-2 /hpf (0-2) 10/09/24 11:31 U Hyaline Cast (Auto) 0-2 /lpf (0-2) 10/09/24 11:31 U Epithel Cells (Auto) 0-2 /hpf (0-2) 10/09/24 11:31 Urine Bacteria (Auto) None Seen (None Seen) 10/09/24 11:31 10/13/24 12:20 Gram Stain - Final Back 10/13/24 12:20 Gram Stain - Final Back 10/07/24 20:09 Aerobic Blood Culture - Final Blood No growth in Aerobic bottle after 5 days. Anaerobic Blood Culture - Preliminary Staphylococcus epidermidis 10/07/24 20:09 Aerobic Blood Culture - Final Blood No growth in Aerobic bottle after 5 days. Anaerobic Blood Culture - Final No growth in Anaerobic bottle after 5 days. 10/10/24 08:39 Aerobic Blood Culture - Preliminary Blood Staphylococcus epidermidis Anaerobic Blood Culture - Preliminary No growth in Anaerobic bottle after 48 hours. 10/10/24 08:27 Aerobic Blood Culture - Preliminary Blood No growth in Aerobic bottle after 48 hours. Anaerobic Blood Culture - Preliminary No growth in Anaerobic bottle after 48 hours. 10/14/24 10/14/24 09:34 06:17 POC Glucose 119 H 131 H
[2024-10-14] MEDS ORDERED: LIDOCAINE 2% 2 ML VIAL/AMP(20MG/ML) INFIL ONE (10:02)
[2024-10-14] MEDS ORDERED: PROPOFOL IV EMULSION 10 MG/ML 20 ML VIAL IV ONE (10:02)
--- NOTE | 2024-10-14 10:16 | Surgery Progress Note ---
Date of Service October 14, 2024 Assessment & Plan (1) Bacteremia: Plan: Will proceed with port removal today in the operating room Consent was obtained, risks discussed including bleeding, infection Admission and Anticipated Discharge Date Admission Date: October 08, 2024 Subjective No acute events overnight. Afebrile. Review of Systems Constitutional: no fever and no chills Respiratory: no cough and no dyspnea Cardiovascular: no chest pain and no dyspnea on exertion Gastrointestinal: no abdominal pain, no nausea and no vomiting Integumentary: no acne and no lesions Psychiatric: no behavioral changes and no depression Physical Exam Constitutional: WD/WN, vitals as above Eyes: PERRL, conjunctivae normal, anicteric sclerae Respiratory: normal respiratory effort, lungs clear to auscultation Cardiovascular: RRR, no murmur, no edema Chest (Breasts): Additional Comments: Port in place left chest, no erythema or drainage Gastrointestinal (Abdomen): normal bowel sounds, soft, nontender, no hepatosplenomegaly Skin: no rashes, warm and dry Psychiatric: A+Ox3, euthymic affect Results & Data Vital Signs (Past 12 Hours) Vital Signs Temp Pulse Resp BP BP Pulse Ox O2 Del Method 10/14/24 09:35 36.5 C 84 20 152/76 H 95 Room Air 10/14/24 07:08 36.7 C 88 16 146/77 H 96 Room Air 10/13/24 23:25 36.7 C 87 18 136/70 94 Room Air PG Care Time/CCT Total # of Minutes Spent Total Time Spent with Patient: Total time spent is greater than 50% in coordination of care (as documented) at patient's floor/unit and/or counseling patient: Coding Level of Care Code 11330 SUB INP/OBS CARE 03/15MIN Diagnoses Bacteremia R78.81
[2024-10-14] MEDS ORDERED: ONDANSETRON INJ 2 MG/ML 2 ML VIAL ONE (11:09)
[2024-10-14] MEDS: BUPIVACAINE/EPINEPHRINE 0.25% 1:200,000 30 ML VIAL ONE (11:17)
--- NOTE | 2024-10-14 11:17 | Post Operative Brief Note ---
PG Immediate Post Op with CF Date of Surgery October 14, 2024 Pre & Post Diagnosis Operation Date: 10/14/24 07:00 Pre-Op Diagnosis: Bacteremia Post-Op Diagnosis: Bacteremia I identified the patient and participated in the time-out.: Yes Procedure Operation Date: 10/14/24 07:00 Actual Procedures p Removal of A-port(Left) - Randall Treviño DO Surgeon Randall Treviño DO Medical Billing Specialist Matilde Albarran PA-C Estimated Blood Loss 5 Findings See Below Normal appearing port/catheter complex, intact catheter Specimens Specimen Description: A: Left A-port Catheter Tip for Culture Anesthesia Type MAC Complications none Disposition Disposition: Recovery Room
--- NOTE | 2024-10-14 11:18 | Operative Report ---
PG Post Operative Report Pre & Post Diagnosis Operation Date: 10/14/24 07:00 Pre-Op Diagnosis: Bacteremia Post-Op Diagnosis: Bacteremia I identified the patient and participated in the time-out.: Yes Procedure Operation Date: 10/14/24 07:00 Actual Procedures p Removal of A-port(Left) - Randall Treviño DO Surgeon Randall Treviño DO Injection Mold Tooling Technician Matilde Albarran PA-C Estimated Blood Loss 5 Findings See Below Normal appearing port/catheter complex, intact catheter Specimens Catheter tip for culture Drains None Anesthesia Type MAC Complications none Disposition Disposition: Recovery Room Indications 79-year-old female with bacteremia and port in place Description of Procedure The patient was brought to the OR and placed in the supine position. At this time she underwent MAC anesthesia without problem. Her left chest was prepped and draped in the usual sterile fashion. She was given appropriate pre-operati ve antibiotics. Timeout was called, procedure was verified as Mediport removal. Surgical, anesthesia and nursing teams agreed and the procedure was begun. Patient was then placed in Trendelenburg position. After injection of 0.25% Marcaine with epinephrine, a transverse incision directly through her old incision was made using a #15 blade scalpel. This was carried down directly to the port using electrocautery. At this time the catheter was delivered out of the incision. The sutures on the mediport itself were then cut and the entire mediport/catheter complex removed and passed off as specimen. At this time the incision was irrigated until clear. Hemostasis was achieved using electrocautery. Hemostasis was complete. At this time the capsule was closed using 3-0 Vicryl. Deep dermal layer of skin was closed using 3-0 Vicryl and the skin was closed using 4-0 Monocryl. Sterile dressing was applied. All needle and sponge counts were correct x 2. The patient was then awakened from anesthesia and transported to PACU in stable condition. The physician customer support assistant was present scrubbed for the entire case. She was essential in positioning, prepping open the patient, retraction exposure, closure of the incision and placement of dressing. I attest to the content of the Intraoperative Record and any orders documented therein. Any exceptions are noted below.
--- NOTE | 2024-10-14 12:47 | Anesthesiology Progress Note ---
Date of Service October 14, 2024 Anesthesia Post Procedure Vital Signs Vital Signs: Temp Pulse Pulse Pulse Resp BP BP 10/14/24 12:08 36.5 C 84 17 138/69 10/14/24 11:50 36.7 C 76 14 135/64 10/14/24 11:40 73 15 126/65 10/14/24 11:30 36.3 C L 76 24 126/57 L 10/14/24 09:35 36.5 C 84 20 152/76 H 10/14/24 07:08 36.7 C 88 16 146/77 H 10/13/24 23:25 36.7 C 87 18 136/70 10/13/24 15:21 36.6 C 83 16 117/69 10/13/24 14:08 36.6 C 79 16 113/70 10/13/24 13:25 36.7 C 82 17 117/70 10/13/24 13:01 36.6 C 79 18 137/75 Pulse Ox O2 Del Method O2 Flow Rate 10/14/24 12:08 97 Room Air 10/14/24 11:50 93 Room Air 10/14/24 11:40 98 Room Air 10/14/24 11:30 96 Nasal Cannula 2 10/14/24 09:35 95 Room Air 10/14/24 07:08 96 Room Air 10/13/24 23:25 94 Room Air 10/13/24 15:21 95 Room Air 10/13/24 14:08 98 Room Air 10/13/24 13:25 97 Room Air 10/13/24 13:01 98 Room Air Pain Intensity Bilateral Lumbar: Pain Intensity: 7 Transfer of Care Handoff Completed per policy Notes Mental Status: alert / awake / arousable Patient Amnestic to Procedure: Yes Nausea / Vomiting: adequately controlled Pain: adequately controlled Airway Patency, RR, SpO2: stable & adequate BP & HR: stable & adequate Hydration State: stable & adequate Anesthetic Complications: no major complications apparent
[2024-10-14 16:07] LABS: Cdiff Toxin B Gene (2yr or >) Negative Cdiff Gene (Neg)
--- NOTE | 2024-10-14 17:51 | Hospitalist Progress Note ---
Date of Service October 14, 2024 Assessment & Plan (1) Severe back pain: Plan: 79-year-old female with past medical history significant for type 2 diabetes, dyslipidemia, paroxysmal SVT, hypertension, GERD, osteoarthritis of both knees, AML, generalized anxiety disorder, spinal stenosis of lumbar region, persistent insomnia who was recently in the hospital for lumbar spine compression fracture and discharged to rehab comes back with severe back pain. Patient states at rehab she was having a lot of constipation and stool softeners were given since then she had a lot of back pain. The stool softeners relieved her constipation but the back pain got worse. She could not tolerate the back pain this reason she was came to the hospital today. She thinks she might had fever. Denies any bowel incontinence. She says sometimes she gets bladder incontinence but it is nothing new. Pain is not shooting down the legs. Ambulating with a walker but now the pain got worse. Denies any chest pain. No shortness of breath. No cough. No headache. No runny nose or sore throat. No difficulty swallowing. Last couple of days appetite is down. Last chemo was in August. She was supposed to get chemo on 09/29/2024 but because she is rehab it was held. Cur rently while resting seems comfortable and hemodynamics are okay. Severe back pain L1 and L3 compression fractures Staph epidermidis bacteremia Bilateral iliopsoas muscle fluid collections, likely infected Coming from rehab CT scan done in the ER shows same L1 L3 compression fractures patient's back pain not responding with pain management Discussed with Dr. Bergman In light of possible bacteremia, recommend repeat MRI of the spine Continue pain control, PT OT 10/12 MRI Lumbar spine reviewed: 9+) fluid collections, edema iliopsoas, bilateral, likely infected Discussed with Dr. Bergman, agree with possible infected fluid collections around the lumbar spine Broaden antibiotic coverage with Zosyn in addition to daptomycin 10/[address] Bergman, recommend IR drainage of fluid collection in the lumbar spine Discussed with SARAH Rodriguez, IR drainage performed 10/14 Fluid drainage culture: Pending continue daptomycin plus Zosyn further recommendations as per Dr. Bergman Staph epidermidis bacteremia initial blood culture: Staph epidermidis 1 out of 2 bottles Repeat blood cultures: Staph epidermidis 1 out of 2 bottles Echocardiogram: No mention of possible vegetation ID service recommends removal of indwelling port, status post removal today third set of blood cultures: pending Continue IV daptomycin and Zosyn Lower abdominal Discomfort UA: Negative for UTI KUB: No obstruction, minimal fecal load -- resolved Hypokalemia Potassium ordered AML undergoing chemotherapy History of pancytopenia Today WBC 6.5. Hemoglobin 10.1. Platelets 340 Currently undergoing monthly chemotherapy with decitabine/venetoclax Last chemo was in August. This this month chemo was delayed because patient was in rehab Has appointment with Dr. Gaines on 10/29/2024 per last admission Continue suppressive antibiotics Levaquin, voriconazole and acyclovir 10/14 CBC stable Discussed with Dr. Gaines, patient is in remission from AML according to her she agrees with a port removal discussion of further chemotherapy with patient and family after patient recovers from this episode Hypertension On amlodipine. Last admit amlodipine was held for soft blood pressures Continue amlodipine for now. On furosemide with potassium supplements -- hold Lasix for now as patient is on the dry side Hyperlipidemia On statin Anxiety/depression On citalopram and buspirone Diabetes Diet controlled We will follow HbA1c levels: 6.4 Sliding scale for now Recent A port placement supposed to followup with general surgery for evaluation Gen Surg consulted -- (+) bacteremia -- ID service consulted, recommend removal of port A-port removed today DVT prophylaxis Lovenox Disposition Med Surg Full Code Disposition pending lives at home PT/OT eval Admission and Anticipated Discharge Date Admission Date: October 08, 2024 Subjective seen resting in bed, comfortable, not in distress, in good spirits Patient sisters at the bedside visiting States she feels better overall Review of Systems Review of Systems: all noted and negative except for above Physical Exam Physical Exam: General- oriented x 3, not in distress, speaks in sentences with no effort or accessory muscle use Eyes- anicteric Neck- no JVD Lungs- clear breath sounds bilaterally, no rales/wheezes Surgical site wound left upper chest wall: Wound well opposed, no bleeding or discharge Heart- normal rate, regular rhythm; no murmurs Abdomen- normal bowel sounds, nondistended, soft, nontender Extremities- no pretibial edema, no calf tenderness Neuro- alert, oriented x 3; no gross focal neurologic deficits Skin- warm & dry Results & Data Results & Data Vital Signs (Past 12 Hours) Vital Signs Temp Pulse Pulse Pulse Resp BP BP 10/14/24 15:06 36.6 C 88 16 131/77 10/14/24 14:35 36.7 C 90 17 146/74 H 10/14/24 13:42 36.9 C 92 H 18 135/73 10/14/24 12:45 36.8 C 92 H 18 151/75 H 10/14/24 12:08 36.5 C 84 17 138/69 10/14/24 11:50 36.7 C 76 14 135/64 10/14/24 11:40 73 15 126/65 10/14/24 11:30 36.3 C L 76 24 126/57 L 10/14/24 09:35 36.5 C 84 20 152/76 H 10/14/24 07:08 36.7 C 88 16 146/77 H Pulse Ox O2 Del Method O2 Flow Rate 10/14/24 15:06 97 Room Air 10/14/24 14:35 94 Room Air 10/14/24 13:42 94 Room Air 10/14/24 12:45 97 Room Air 10/14/24 12:08 97 Room Air 10/14/24 11:50 93 Room Air 10/14/24 11:40 98 Room Air 10/14/24 11:30 96 Nasal Cannula 2 10/14/24 09:35 95 Room Air 10/14/24 07:08 96 Room Air all noted and reviewed including below
[2024-10-14] MEDS ORDERED: LOPERAMIDE HCL 2 MG CAP PO PRN (18:37)
[2024-10-15 06:26] LABS: Alanine Aminotransferase 19.0 U/L (7-52); Albumin Globulin Ratio 0.9 (0.9-2); Alkaline Phosphatase 105.0 U/L (34-104); Anion Gap 8.0 (3-11); Bilirubin,Total 0.4 mg/dl (0.2-1.0); Blood Urea Nitrogen 9.0 mg/dl (6-23); Calcium 9.0 mg/dl (8.6-10.3); Carbon Dioxide 27.0 mmol/L (21-32); Chloride 103.0 mmol/L (98-107); Creatinine Clr Calc Pharmacy 108.3 ml/min; Globulin 3.8 gm/dl (2.5-4.0); Glucose 98.0 mg/dl (70-99(Fasting)); Potassium 3.5 mmol/L (3.5-5.1); Sodium 138.0 mmol/L (136-145); Total Protein 7.1 gm/dl (6.0-8.3)
[2024-10-15 06:36] LABS: Hematocrit (blood only) 30.3 % (37.0-47.0); Hemoglobin 9.6 g/dl (12.0-16.0); Mean Corpuscular Hemoglobin 31.2 pg (25.0-34.0); Mean Corpuscular Volume 98.4 fL (80.0-100.0); Platelet Count 296 K/uL (130-400); RDW Standard Deviation 55.0 fL (36.4-46.3); Red Blood Count 3.08 M/uL (4.20-5.40); White Blood Count 5.58 K/ul (4.8-10.8)
[2024-10-15 06:39] LABS: Immature Granulocytes # (auto) 0.06 K/uL (0.01-0.20); Immature Granulocytes % (auto) 1.1 %; Ovalocytes 1+; Polychromasia 1+
--- NOTE | 2024-10-15 07:39 | Hospitalist Progress Note ---
Date of Service October 15, 2024 Assessment & Plan (1) Severe back pain: Plan: 79 yo F with type 2 diabetes, dyslipidemia, paroxysmal SVT, hypertension, GERD, osteoarthritis of both knees, AML, generalized anxiety disorder, spinal stenosis of lumbar region, persistent insomnia who was recently in the hospital for lumbar spine compression fracture and discharged to rehab comes back with severe back pain. Patient states at rehab she was having a lot of constipation and stool softeners were given since then she had a lot of back pain. The stool softeners relieved her constipation but the back pain got worse. She could not tolerate the back pain this reason she was came to the hospital today. She thinks she might had fever. Denies any bowel incontinence. She says sometimes she gets bladder incontinence but it is nothing new. Pain is not shooting down the legs. Ambulating with a walker but now the pain got worse. Denies any chest pain. No shortness of breath. No cough. No headache. No runny nose or sore throat. No difficulty swallowing. Last couple of days appetite is down. Last chemo was in August. She was supposed to get chemo on 09/29/2024 but because she is rehab it was held. Currently while resting seems comfortable and hemod ynamics are okay. Severe back pain L1 and L3 compression fractures Staph epidermidis bacteremia Bilateral iliopsoas muscle fluid collections, likely infected Coming from rehab CT scan done in the ER shows same L1 L3 compression fractures patient's back pain not responding with pain management Discussed with Dr. Bergman (orthospine) In light of possible bacteremia, recommend repeat MRI of the spine Continue pain control, PT OT 10/12 MRI Lumbar spine reviewed: + fluid collections, edema iliopsoas, bilateral, likely infected Discussed with Dr. Bergman, agree with possible infected fluid collections around the lumbar spine Broaden antibiotic coverage with Zosyn in addition to daptomycin 10/[address] Bergman, recommend IR drainage of fluid collection in the lumbar spine Discussed with SARAH Rodriguez, IR drainage performed Fluid drainage culture: positive for Staph epi continue daptomycin plus Zosyn further recommendations as per Dr. Bergman and ID Staph epidermidis bacteremia Initial blood culture (10/07): Staph epidermidis 1 out of 2 bottles Repeat blood cultures (10/10): Staph epidermidis 1 out of 2 bottles Echocardiogram: No mention of possible vegetation ID service recommends removal of indwelling port, port removed on 10/14 third set of blood cultures (10/15): pending Continue IV daptomycin and Zosyn for now Lower abdominal Discomfort UA: Negative for UTI KUB: No obstruction, minimal fecal load -- resolved Hypokalemia replace and monitor AML undergoing chemotherapy History of pancytopenia WBC 6.5. Hemoglobin 10.1. Platelets 340 Currently undergoing monthly chemotherapy with decitabine/venetoclax Last chemo was in August. This month chemo was delayed because patient was in rehab Has appointment with Dr. Gaines on 10/29/2024 per last admission Continue suppressive antibiotics Levaquin, voriconazole and acyclovir 10/14 CBC stable Discussed with Dr. Gaines, patient is in remission from AML according to her she agrees with a port removal discussion of further chemotherapy with patient and family after patient recovers from this episode Hypertension On amlodipine. Last admit amlodipine was held for soft blood pressures Continue amlodipine for now. On furosemide with potassium supplements -- hold Lasix for now as patient is on the dry side Hyperlipidemia On statin Anxiety/depression On citalopram and buspirone Diabetes Diet controlled current HbA1c levels: 6.4 Sliding scale for now Recent A port placement supposed to followup with general surgery for evaluation Gen Surg consulted -- (+) bacteremia -- ID service consulted, recommend removal of port A-port removed 10/14/2024 DVT prophylaxis Lovenox Disposition Med Surg Full Code Disposition pending lives at home PT/OT eval Admission and Anticipated Discharge Date Admission Date: October 08, 2024 Subjective Pt seen in follow up Hx of AML, back pain Found to be bacteremic A-port removed yesterday by gen. surgery (10/14). Previously also fluid removal by IR - cultx pending Currently lying in bed in NAD, denies fever, chills, chest pain, shortness of breath, n/v. Reports back pain is improving. Says she had loose stool - c. diff obtained last evening and negative Review of Systems Review of Systems: All systems reviewed & are unremarkable except as noted in Subjective Physical Exam Physical Exam: General- oriented x 3, not in distress, speaks in sentences with no effort or accessory muscle use Eyes- anicteric Neck- no JVD Lungs- clear breath sounds bilaterally, no rales/wheezes Surgical site wound left upper chest wall: clean, dry, no discharge, no erythema Heart- normal rate, regular rhythm; no murmurs Abdomen- normal bowel sounds, nondistended, soft, nontender Extremities- no pretibial edema, no calf tenderness Neuro- alert, oriented x 3; no gross focal neurologic deficits Skin- warm & dry Results & Data Results & Data Vital Signs (Past 12 Hours) Vital Signs Temp Pulse Resp BP Pulse Ox O2 Del Method 10/15/24 03:00 36.6 C 81 18 126/71 96 Room Air 10/14/24 23:27 36.5 C 82 18 124/65 96 Room Air Laboratory Results 10/15/24 10/14/24 10/14/24 Range/Units 05:38 20:33 16:39 WBC 5.58 (4.8-10.8) K/ul RBC 3.08 L (4.20-5.40) M/uL Hgb 9.6 L (12.0-16.0) g/dl Hct 30.3 L (37.0-47.0) % MCV 98.4 (80.0-100.0) fL MCH 31.2 (25.0-34.0) pg MCHC 31.7 L (32.0-36.0) g/dL RDW Std Deviation 55.0 H (36.4-46.3) fL RDW Coeff of Patti 15.3 H (11.5-14.5) % Plt Count 296 (130-400) K/uL MPV 9.3 L (9.4-12.4) fL Immature Gran % (Auto) 1.1 % Neut % (Auto) 63.5 % Lymph % (Auto) 20.8 % Tucker % (Auto) 14.0 % Eos % (Auto) 0.2 % Baso % (Auto) 0.4 % Neut # (Auto) 3.55 (1.40-6.50) K/uL Lymph # (Auto) 1.16 L (1.20-3.40) K/uL Tucker # (Auto) 0.78 H (0.11-0.59) K/uL Eos # (Auto) 0.01 (0.00-0.50) K/uL Baso # (Auto) 0.02 (0.00-0.20) K/uL Immature Gran # (Auto) 0.06 (0.01-0.20) K/uL Polychromasia 1+ Ovalocytes 1+ Sodium 138 (136-145) mmol/L Potassium 3.5 (3.5-5.1) mmol/L Chloride 103 (98-107) mmol/L Carbon Dioxide 27 (21-32) mmol/L Anion Gap 8 (3-11) BUN 9 (6-23) mg/dl Creatinine 0.36 L (0.6-1.2) mg/dl Est Cr Clr Drug Dosing 108.3 ml/min eGFR 104.49 BUN/Creatinine Ratio 25.0 H (10-20) Glucose 98 (70-99(Fasting)) mg/dl POC Glucose 94 102 H (70-99) mg/dl Calcium 9.0 (8.6-10.3) mg/dl Total Bilirubin 0.4 (0.2-1.0) mg/dl AST 19 (13-39) U/L ALT 19 (7-52) U/L Alkaline Phosphatase 105 H (34-104) U/L Total Protein 7.1 (6.0-8.3) gm/dl Albumin 3.3 L (3.4-5.0) gm/dl Globulin 3.8 (2.5-4.0) gm/dl Albumin/Globulin Ratio 0.9 (0.9-2) Stl C. diff Tox B Gene (Neg) Stl C. diff [id number] 10/14/24 10/14/24 10/14/24 Range/Units 15:08 12:22 11:35 WBC (4.8-10.8) K/ul RBC (4.20-5.40) M/uL Hgb (12.0-16.0) g/dl Hct (37.0-47.0) % MCV (80.0-100.0) fL MCH (25.0-34.0) pg MCHC (32.0-36.0) g/dL RDW Std Deviation (36.4-46.3) fL RDW Coeff of Patti (11.5-14.5) % Plt Count (130-400) K/uL MPV (9.4-12.4) fL Immature Gran % (Auto) % Neut % (Auto) % Lymph % (Auto) % Tucker % (Auto) % Eos % (Auto) % Baso % (Auto) % Neut # (Auto) (1.40-6.50) K/uL Lymph # (Auto) (1.20-3.40) K/uL Tucker # (Auto) (0.11-0.59) K/uL Eos # (Auto) (0.00-0.50) K/uL Baso # (Auto) (0.00-0.20) K/uL Immature Gran # (Auto) (0.01-0.20) K/uL Polychromasia Ovalocytes Sodium (136-145) mmol/L Potassium (3.5-5.1) mmol/L Chloride (98-107) mmol/L Carbon Dioxide (21-32) mmol/L Anion Gap (3-11) BUN (6-23) mg/dl Creatinine (0.6-1.2) mg/dl Est Cr Clr Drug Dosing ml/min eGFR BUN/Creatinine Ratio (10-20) Glucose (70-99(Fasting)) mg/dl POC Glucose 111 H 117 H (70-99) mg/dl Calcium (8.6-10.3) mg/dl Total Bilirubin (0.2-1.0) mg/dl AST (13-39) U/L ALT (7-52) U/L Alkaline Phosphatase (34-104) U/L Total Protein (6.0-8.3) gm/dl Albumin (3.4-5.0) gm/dl Globulin (2.5-4.0) gm/dl Albumin/Globulin Ratio (0.9-2) Stl C. diff Tox B Gene Negative Cdiff Gene (Neg) Stl C. diff [id number] NEGATIVE 10/14/24 Range/Units 09:34 WBC (4.8-10.8) K/ul RBC (4.20-5.40) M/uL Hgb (12.0-16.0) g/dl Hct (37.0-47.0) % MCV (80.0-100.0) fL MCH (25.0-34.0) pg MCHC (32.0-36.0) g/dL RDW Std Deviation (36.4-46.3) fL RDW Coeff of Patti (11.5-14.5) % Plt Count (130-400) K/uL MPV (9.4-12.4) fL Immature Gran % (Auto) % Neut % (Auto) % Lymph % (Auto) % Tucker % (Auto) % Eos % (Auto) % Baso % (Auto) % Neut # (Auto) (1.40-6.50) K/uL Lymph # (Auto) (1.20-3.40) K/uL Tucker # (Auto) (0.11-0.59) K/uL Eos # (Auto) (0.00-0.50) K/uL Baso # (Auto) (0.00-0.20) K/uL Immature Gran # (Auto) (0.01-0.20) K/uL Polychromasia Ovalocytes Sodium (136-145) mmol/L Potassium (3.5-5.1) mmol/L Chloride (98-107) mmol/L Carbon Dioxide (21-32) mmol/L Anion Gap (3-11) BUN (6-23) mg/dl Creatinine (0.6-1.2) mg/dl Est Cr Clr Drug Dosing ml/min eGFR BUN/Creatinine Ratio (10-20) Glucose (70-99(Fasting)) mg/dl POC Glucose 119 H (70-99) mg/dl Calcium (8.6-10.3) mg/dl Total Bilirubin (0.2-1.0) mg/dl AST (13-39) U/L ALT (7-52) U/L Alkaline Phosphatase (34-104) U/L Total Protein (6.0-8.3) gm/dl Albumin (3.4-5.0) gm/dl Globulin (2.5-4.0) gm/dl Albumin/Globulin Ratio (0.9-2) Stl C. diff Tox B Gene (Neg) Stl C. diff [id number] Medications Administered Current Inpatient Medications Acetaminophen (Acetaminophen 325 Mg Tab) 650 mg PO Q4H PRN PRN Reason: pain/fever Stop: 11/07/24 02:59 Last Admin: 10/14/24 20:35 Dose: 650 mg Acyclovir (Acyclovir 400 Mg Tab) 400 mg PO BID [place] Stop: 11/07/24 08:59 Last Admin: 10/14/24 20:19 Dose: 400 mg Amlodipine Besylate (Amlodipine Besylate 5 Mg Tab) 5 mg PO QAM [facility] Stop: 11/07/24 08:59 Last Admin: 10/14/24 12:56 Dose: 5 mg Atorvastatin Calcium (Atorvastatin 20 Mg Tab) 20 mg PO HS [facility] Stop: 11/07/24 20:59 Last Admin: 10/10/24 21:08 Dose: 20 mg Buspirone HCl (Buspirone 5 Mg Tab) 5 mg PO AMHS [facility] Stop: 11/07/24 08:59 Last Admin: 10/14/24 20:19 Dose: 5 mg Citalopram Hydrobromide (Citalopram 20 Mg Tab) 10 mg PO QAM [facility] Stop: 11/07/24 08:59 Last Admin: 10/14/24 12:55 Dose: 10 mg Dextrose (Dextrose 50% 50 Ml Syringe) 25 - 50 ml IV UD PRN; Protocol PRN Reason: Hypoglycemia Protocol Stop: 11/07/24 02:59 Enoxaparin Sodium (Enoxaparin Inj 40 Mg/0.4 Ml Syr) 40 mg SQ Q24H [place] Stop: 11/07/24 08:59 Last Admin: 10/13/24 08:46 Dose: Not Given Gabapentin (Gabapentin 100 Mg Cap) 100 mg PO BID [place] Stop: 11/07/24 08:59 Last Admin: 10/14/24 20:19 Dose: 100 mg Glucagon (Glucagon For Inj 1 Mg Vial) 1 mg SQ UD PRN; Protocol PRN Reason: Hypoglycemia Protocol Stop: 11/07/24 02:59 Glucose (Glucose 40% Gel 15 Gm Tube) 15 - 30 gm PO UD PRN; Protocol PRN Reason: Hypoglycemia Protocol Stop: 11/07/24 02:59 Glucose (Glucose 10 Tab/Tube) 4 - 8 tab PO UD PRN; Protocol PRN Reason: Hypoglycemia Protocol Stop: 11/07/24 02:59 Heparin Sodium (Porcine) (Heparin 100 Unit/Ml 5ml Flush) 5 ml FLUSH PRN PRN PRN Reason: Flush Stop: 11/07/24 03:03 Last Admin: 10/12/24 05:22 Dose: 5 ml Hydromorphone HCl (Hydromorphone Inj 1 Mg/Ml Syringe) 1 mg IV Q4H PRN PRN Reason: Breakthrough Pain Stop: 10/22/24 02:59 Last Admin: 10/13/24 19:31 Dose: 1 mg Promethazine HCl (Phenergan) 6.25 mg in 50.25 mls @ 201 mls/hr IV Q6H PRN PRN Reason: Nausea And Vomiting Stop: 11/08/24 08:11 Last Infusion: 10/11/24 08:20 Dose: Infused Daptomycin 300 mg/ Syringe 6 mls @ 3.25 mls/min IV Q24H [facility]; Protocol Stop: 10/25/24 12:29 Last Admin: 10/14/24 13:03 Dose: 3.25 mls/min Piperacillin Sod/Tazobactam Sod (Zosyn) 4.5 gm in 100 mls @ 25 mls/hr IV Q8H [facility]; Protocol Stop: 11/23/24 20:59 Last Admin: 10/15/24 05:30 Dose: 25 mls/hr Insulin Aspart (Insulin Aspart Per Unit Charge) 0 units SC ACHS [facility] Stop: 11/13/24 05:59 Last Admin: 10/14/24 20:39 Dose: Not Given Lactobacillus Acidophilus (Advanced Probiotic 625 Mg Capsule) 1,250 mg PO DAILY [facility] Stop: 11/09/24 08:59 Last Admin: 10/14/24 12:55 Dose: 1,250 mg Levofloxacin (Levofloxacin 500 Mg Tab) [address] [facility]; Protocol Stop: 11/07/24 08:59 Last Admin: 10/14/24 12:57 Dose: 500 mg Lidocaine (Lidocaine 5% 1 Patch) [address] [facility] Stop: 11/07/24 08:59 Last Admin: 10/14/24 12:12 Dose: Not Given Loperamide HCl (Loperamide Hcl 2 Mg Cap) 2 mg PO UD PRN PRN Reason: diarrhea Stop: 11/13/24 18:36 Lorazepam (Lorazepam 0.5 Mg Tab) 0.5 mg PO DAILY PRN PRN Reason: Insomnia Stop: 11/07/24 02:59 Last Admin: 10/11/24 21:38 Dose: 0.5 mg Melatonin (Melatonin 3 Mg Tab) 3 mg PO HS PRN PRN Reason: Insomnia Stop: 11/07/24 03:07 Miscellaneous (Carbohydrates For Hypoglycemia ) 15 - 30 gm PO UD PRN PRN Reason: Hypoglycemia Protocol Stop: 11/07/24 02:59 Miscellaneous (Remove Lidoderm Patch) 1 each N/A DAILY@2100 [facility] Stop: 11/07/24 20:59 Last Admin: 10/14/24 20:39 Dose: Not Given Oxycodone HCl (Oxycodone Hcl Ir 5 Mg Tab (Immediate Release)) 5 mg PO Q6H PRN PRN Reason: pain 5-8 Stop: 10/22/24 02:59 Last Admin: 10/15/24 00:51 Dose: 5 mg Oxycodone HCl (Oxycodone Hcl Ir 5 Mg Tab (Immediate Release)) 10 mg PO Q6H PRN PRN Reason: pain 9-10 Stop: 10/22/24 02:59 Last Admin: 10/13/24 12:45 Dose: 10 mg Polyethylene Glycol (Polyethylene (Miralax) 17 Gm Pack) 17 gm PO DAILY PRN PRN Reason: Constipation Stop: 11/07/24 02:59 Polyethylene Glycol (Polyethylene (Miralax) 17 Gm Pack) 17 gm PO BID [facility] Stop: 11/07/24 08:59 Last Admin: 10/14/24 20:19 Dose: Not Given Potassium Chloride (Potassium Chloride 10 Meq Tabcr) 40 meq PO BID [facility] Stop: 11/11/24 08:59 Last Admin: 10/14/24 20:19 Dose: 40 meq Senna/Docusate Sodium (Docusate Sodium/Senna 50/8.6mg Tab) 1 tab PO BID [facility] Stop: 11/07/24 08:59 Last Admin: 10/14/24 20:19 Dose: Not Given Voriconazole (Voriconazole 200 Mg Tablet) 200 mg PO Q12 [facility] Stop: 11/07/24 08:59 Last Admin: 10/14/24 20:19 Dose: 200 mg
--- NOTE | 2024-10-15 09:58 | Surgery Progress Note ---
Date of Service October 15, 2024 Assessment & Plan (1) Port-A-Cath in place: Plan: Her port was removed yesterday and she is healing up well without any issues She can follow-up with me in 2 weeks to ensure that her incision is healing well Surgical sign off at this time, please call with any questions or concerns Admission and Anticipated Discharge Date Admission Date: October 08, 2024 Subjective Patient seen and examined. Denies any chest pain. Denies any problems with her incision. Physical Exam Constitutional: WD/WN, vitals as above Chest (Breasts): Additional Comments: Left chest incision with Dermabond in place, no erythema or drainage Results & Data Vital Signs (Past 12 Hours) Vital Signs Temp Pulse Pulse Resp BP Pulse Ox O2 Del Method 10/15/24 09:41 72 136/71 10/15/24 07:55 36.4 C L 82 17 138/76 94 Room Air 10/15/24 03:00 36.6 C 81 18 126/71 96 Room Air 10/14/24 23:27 36.5 C 82 18 124/65 96 Room Air PG Care Time/CCT Total # of Minutes Spent Total Time Spent with Patient: Total time spent is greater than 50% in coordination of care (as documented) at patient's floor/unit and/or counseling patient: Coding Level of Care Code 62132 Post Operative Follow-Up Diagnoses Port-A-Cath in place Z95.828
[2024-10-16 06:07] LABS: Hematocrit (blood only) 31.8 % (37.0-47.0); Hemoglobin 10.4 g/dl (12.0-16.0); Mean Corpuscular Hemoglobin 32.0 pg (25.0-34.0); Mean Corpuscular Volume 97.8 fL (80.0-100.0); Platelet Count 284 K/uL (130-400); RDW Standard Deviation 55.1 fL (36.4-46.3); Red Blood Count 3.25 M/uL (4.20-5.40); White Blood Count 5.81 K/ul (4.8-10.8)
[2024-10-16 06:32] LABS: Alanine Aminotransferase 16.0 U/L (7-52); Albumin Globulin Ratio 0.8 (0.9-2); Alkaline Phosphatase 110.0 U/L (34-104); Anion Gap 10.0 (3-11); Bilirubin,Total 0.4 mg/dl (0.2-1.0); Blood Urea Nitrogen 10.0 mg/dl (6-23); Calcium 9.1 mg/dl (8.6-10.3); Carbon Dioxide 25.0 mmol/L (21-32); Chloride 103.0 mmol/L (98-107); Creatinine Clr Calc Pharmacy 105.3 ml/min; Globulin 4.1 gm/dl (2.5-4.0); Glucose 93.0 mg/dl (70-99(Fasting)); Magnesium 2.0 mg/dl (1.7-2.4); Potassium 4.1 mmol/L (3.5-5.1); Sodium 138.0 mmol/L (136-145); Total Protein 7.4 gm/dl (6.0-8.3)
--- NOTE | 2024-10-16 09:04 | Hospitalist Progress Note ---
Date of Service October 16, 2024 Assessment & Plan (1) Severe back pain: Plan: 79 yo F with type 2 diabetes, dyslipidemia, paroxysmal SVT, hypertension, GERD, osteoarthritis of both knees, AML, generalized anxiety disorder, spinal stenosis of lumbar region, persistent insomnia who was recently in the hospital for lumbar spine compression fracture and discharged to rehab comes back with severe back pain. Patient states at rehab she was having a lot of constipation and stool softeners were given since then she had a lot of back pain. The stool softeners relieved her constipation but the back pain got worse. She could not tolerate the back pain this reason she was came to the hospital today. She thinks she might had fever. Denies any bowel incontinence. She says sometimes she gets bladder incontinence but it is nothing new. Pain is not shooting down the legs. Ambulating with a walker but now the pain got worse. Denies any chest pain. No shortness of breath. No cough. No headache. No runny nose or sore throat. No difficulty swallowing. Last couple of days appetite is down. Last chemo was in August. She was supposed to get chemo on 09/29/2024 but because she is rehab it was held. Currently while resting seems comfortable and hemod ynamics are okay. Severe back pain L1 and L3 compression fractures Staph epidermidis bacteremia Bilateral iliopsoas muscle fluid collections, likely infected Coming from rehab CT scan done in the ER shows same L1 L3 compression fractures patient's back pain not responding with pain management Discussed with Dr. Bergman (orthospine) In light of possible bacteremia, recommend repeat MRI of the spine Continue pain control, PT OT 10/12 MRI Lumbar spine reviewed: + fluid collections, edema iliopsoas, bilateral, likely infected Discussed with Dr. Bergman, agree with possible infected fluid collections around the lumbar spine Broaden antibiotic coverage with Zosyn in addition to daptomycin 10/[address] Bergman, recommend IR drainage of fluid collection in the lumbar spine Discussed with SARAH Rodriguez, IR drainage performed 10/16 Fluid drainage culture: positive for Staph epi - contacted ID - recommend to switch to vancomycin dose for poss. meningitis - discussed w/ pharmacy. dapto will be stopped Dr. Bergman also updated further recommendations as per Dr. Bergman and ID Staph epidermidis bacteremia Initial blood culture (10/07): Staph epidermidis 1 out of 2 bottles Repeat blood cultures (10/10): Staph epidermidis 1 out of 2 bottles Echocardiogram: No mention of possible vegetation ID service recommends removal of indwelling port, port removed on 10/14 third set of blood cultures (10/15): pending Lower abdominal Discomfort UA: Negative for UTI KUB: No obstruction, minimal fecal load -- resolved Hypokalemia replace and monitor AML undergoing chemotherapy History of pancytopenia WBC 6.5. Hemoglobin 10.1. Platelets 340 Currently undergoing monthly chemotherapy with decitabine/venetoclax Last chemo was in August. This month chemo was delayed because patient was in rehab Has appointment with Dr. Gaines on 10/29/2024 per last admission Continue suppressive antibiotics Levaquin, voriconazole and acyclovir 10/14 CBC stable Discussed with Dr. Gaines, patient is in remission from AML according to her she agrees with a port removal discussion of further chemotherapy with patient and family after patient recovers from this episode Hypertension On amlodipine. Last admit amlodipine was held for soft blood pressures Continue amlodipine for now. On furosemide with potassium supplements -- hold Lasix for now as patient is on the dry side Hyperlipidemia On statin Anxiety/depression On citalopram and buspirone Diabetes Diet controlled current HbA1c levels: 6.4 Sliding scale for now Recent A port placement supposed to followup with general surgery for evaluation Gen Surg consulted -- (+) bacteremia -- ID service consulted, recommend removal of port A-port removed 10/14/2024 DVT prophylaxis Lovenox Disposition Med Surg Full Code Disposition pending lives at home PT/OT eval Admission and Anticipated Discharge Date Admission Date: October 08, 2024 Subjective Pt seen in follow up Hx of AML, back pain Found to be bacteremic A-port removed by gen. surgery (10/14). Previously also fluid removal by IR - cultx now posit. for Staph epi Currently lying in bed in NAD, denies fever, chills, chest pain, shortness of breath, n/v. However is overall upset about some nursing experience, not clear if is somewhat confused. She can answer certain things very correctly and appropriately . Says she had loose stool - c. diff obtained was negative Discussed posit. cultx from IR w/ ID - will switch to vancomycin - dose for poss. meningitis - discussed w/ pharmacy Daughter Nadya updated over the phone Review of Systems Review of Systems: All systems reviewed & are unremarkable except as noted in Subjective Physical Exam Physical Exam: General- WD/WN elderly F in NAD Eyes- anicteric Neck- no JVD Lungs- clear breath sounds bilaterally, no rales/wheezes Surgical site wound left upper chest wall: clean, dry, no discharge, no erythema Heart- normal rate, regular rhythm; no murmurs Abdomen- normal bowel sounds, nondistended, soft, nontender Extremities- no pretibial edema, no calf tenderness, moves extremities Neuro- awake and able to answer some questions appropriately, however seems upset about some nursing experience - unclear if confused, speech fluent, no facial asymmetry, moves extremities Skin- warm & dry Results & Data Results & Data Vital Signs (Past 12 Hours) Vital Signs Temp Pulse Resp BP Pulse Ox O2 Del Method 10/16/24 07:48 36.7 C 83 16 149/81 H 94 Room Air 10/15/24 23:09 36.4 C L 86 18 127/86 95 Room Air Laboratory Results 10/16/24 10/16/24 10/15/24 Range/Units 07:47 05:32 20:23 WBC 5.81 (4.8-10.8) K/ul RBC 3.25 L (4.20-5.40) M/uL Hgb 10.4 L (12.0-16.0) g/dl Hct 31.8 L (37.0-47.0) % MCV 97.8 (80.0-100.0) fL MCH 32.0 (25.0-34.0) pg MCHC 32.7 (32.0-36.0) g/dL RDW Std Deviation 55.1 H (36.4-46.3) fL RDW Coeff of Patti 15.3 H (11.5-14.5) % Plt Count 284 (130-400) K/uL MPV 9.1 L (9.4-12.4) fL Sodium 138 (136-145) mmol/L Potassium 4.1 (3.5-5.1) mmol/L Chloride 103 (98-107) mmol/L Carbon Dioxide 25 (21-32) mmol/L Anion Gap 10 (3-11) BUN 10 (6-23) mg/dl Creatinine 0.37 L (0.6-1.2) mg/dl Est Cr Clr Drug Dosing 105.3 ml/min eGFR 103.81 BUN/Creatinine Ratio 27.0 H (10-20) Glucose 93 (70-99(Fasting)) mg/dl POC Glucose 110 H 119 H (70-99) mg/dl Calcium 9.1 (8.6-10.3) mg/dl Phosphorus 3.4 (2.5-4.9) mg/dl Magnesium 2.0 (1.7-2.4) mg/dl Total Bilirubin 0.4 (0.2-1.0) mg/dl AST 14 (13-39) U/L ALT 16 (7-52) U/L Alkaline Phosphatase 110 H (34-104) U/L Total Protein 7.4 (6.0-8.3) gm/dl Albumin 3.3 L (3.4-5.0) gm/dl Globulin 4.1 H (2.5-4.0) gm/dl Albumin/Globulin Ratio 0.8 L (0.9-2) 10/15/24 10/15/24 Range/Units 16:23 11:31 WBC (4.8-10.8) K/ul RBC (4.20-5.40) M/uL Hgb (12.0-16.0) g/dl Hct (37.0-47.0) % MCV (80.0-100.0) fL MCH (25.0-34.0) pg MCHC (32.0-36.0) g/dL RDW Std Deviation (36.4-46.3) fL RDW Coeff of Patti (11.5-14.5) % Plt Count (130-400) K/uL MPV (9.4-12.4) fL Sodium (136-145) mmol/L Potassium (3.5-5.1) mmol/L Chloride (98-107) mmol/L Carbon Dioxide (21-32) mmol/L Anion Gap (3-11) BUN (6-23) mg/dl Creatinine (0.6-1.2) mg/dl Est Cr Clr Drug Dosing ml/min eGFR BUN/Creatinine Ratio (10-20) Glucose (70-99(Fasting)) mg/dl POC Glucose 103 H 117 H (70-99) mg/dl Calcium (8.6-10.3) mg/dl Phosphorus (2.5-4.9) mg/dl Magnesium (1.7-2.4) mg/dl Total Bilirubin (0.2-1.0) mg/dl AST (13-39) U/L ALT (7-52) U/L Alkaline Phosphatase (34-104) U/L Total Protein (6.0-8.3) gm/dl Albumin (3.4-5.0) gm/dl Globulin (2.5-4.0) gm/dl Albumin/Globulin Ratio (0.9-2) Medications Administered Current Inpatient Medications Acetaminophen (Acetaminophen 325 Mg Tab) 650 mg PO Q4H PRN PRN Reason: pain/fever Stop: 11/07/24 02:59 Last Admin: 10/15/24 17:04 Dose: 650 mg Acyclovir (Acyclovir 400 Mg Tab) 400 mg PO BID [place] Stop: 11/07/24 08:59 Last Admin: 10/15/24 21:03 Dose: 400 mg Amlodipine Besylate (Amlodipine Besylate 5 Mg Tab) 5 mg PO QAM [place] Stop: 11/07/24 08:59 Last Admin: 10/15/24 09:43 Dose: 5 mg Atorvastatin Calcium (Atorvastatin 20 Mg Tab) 20 mg PO HS [place] Stop: 11/07/24 20:59 Last Admin: 10/10/24 21:08 Dose: 20 mg Buspirone HCl (Buspirone 5 Mg Tab) 5 mg PO AMHS [place] Stop: 11/07/24 08:59 Last Admin: 10/15/24 21:03 Dose: 5 mg Citalopram Hydrobromide (Citalopram 20 Mg Tab) 10 mg PO QAM [place] Stop: 11/07/24 08:59 Last Admin: 10/15/24 09:44 Dose: 10 mg Dextrose (Dextrose 50% 50 Ml Syringe) 25 - 50 ml IV UD PRN; Protocol PRN Reason: Hypoglycemia Protocol Stop: 11/07/24 02:59 Enoxaparin Sodium (Enoxaparin Inj 40 Mg/0.4 Ml Syr) 40 mg SQ Q24H [place] Stop: 11/07/24 08:59 Last Admin: 10/13/24 08:46 Dose: Not Given Gabapentin (Gabapentin 100 Mg Cap) 100 mg PO BID [place] Stop: 11/07/24 08:59 Last Admin: 10/15/24 21:03 Dose: 100 mg Glucagon (Glucagon For Inj 1 Mg Vial) 1 mg SQ UD PRN; Protocol PRN Reason: Hypoglycemia Protocol Stop: 11/07/24 02:59 Glucose (Glucose 40% Gel 15 Gm Tube) 15 - 30 gm PO UD PRN; Protocol PRN Reason: Hypoglycemia Protocol Stop: 11/07/24 02:59 Glucose (Glucose 10 Tab/Tube) 4 - 8 tab PO UD PRN; Protocol PRN Reason: Hypoglycemia Protocol Stop: 11/07/24 02:59 Heparin Sodium (Porcine) (Heparin 100 Unit/Ml 5ml Flush) 5 ml FLUSH PRN PRN PRN Reason: Flush Stop: 11/07/24 03:03 Last Admin: 10/12/24 05:22 Dose: 5 ml Hydromorphone HCl (Hydromorphone Inj 1 Mg/Ml Syringe) 1 mg IV Q4H PRN PRN Reason: Breakthrough Pain Stop: 10/22/24 02:59 Last Admin: 10/13/24 19:31 Dose: 1 mg Promethazine HCl (Phenergan) 6.25 mg in 50.25 mls @ 201 mls/hr IV Q6H PRN PRN Reason: Nausea And Vomiting Stop: 11/08/24 08:11 Last Infusion: 10/11/24 08:20 Dose: Infused Daptomycin 300 mg/ Syringe 6 mls @ 3.25 mls/min IV Q24H [place]; Protocol Stop: 10/25/24 12:29 Last Admin: 10/15/24 12:42 Dose: 3.25 mls/min Piperacillin Sod/Tazobactam Sod (Zosyn) 4.5 gm in 100 mls @ 25 mls/hr IV Q8H [place]; Protocol Stop: 11/23/24 20:59 Last Admin: 10/16/24 05:49 Dose: 25 mls/hr Insulin Aspart (Insulin Aspart Per Unit Charge) 0 units SC ACHS [facility] Stop: 11/13/24 05:59 Last Admin: 10/15/24 21:06 Dose: Not Given Lactobacillus Acidophilus (Advanced Probiotic 625 Mg Capsule) 1,250 mg PO DAILY [facility] Stop: 11/09/24 08:59 Last Admin: 10/15/24 09:43 Dose: 1,250 mg Levofloxacin (Levofloxacin 500 Mg Tab) [facility] [place] Protocol Stop: 11/07/24 08:59 Last Admin: 10/14/24 12:57 Dose: 500 mg Lidocaine (Lidocaine 5% 1 Patch) 1 patch TD [facility] Stop: 11/07/24 08:59 Last Admin: 10/15/24 10:23 Dose: Not Given Loperamide HCl (Loperamide Hcl 2 Mg Cap) 2 mg PO UD PRN PRN Reason: diarrhea Stop: 11/13/24 18:36 Lorazepam (Lorazepam 0.5 Mg Tab) 0.5 mg PO DAILY PRN PRN Reason: Insomnia Stop: 11/07/24 02:59 Last Admin: 10/11/24 21:38 Dose: 0.5 mg Melatonin (Melatonin 3 Mg Tab) 3 mg PO HS PRN PRN Reason: Insomnia Stop: 11/07/24 03:07 Miscellaneous (Carbohydrates For Hypoglycemia ) 15 - 30 gm PO UD PRN PRN Reason: Hypoglycemia Protocol Stop: 11/07/24 02:59 Miscellaneous (Remove Lidoderm Patch) 1 each N/A DAILY@2100 [facility] Stop: 11/07/24 20:59 Last Admin: 10/15/24 21:19 Dose: Not Given Oxycodone HCl (Oxycodone Hcl Ir 5 Mg Tab (Immediate Release)) 5 mg PO Q6H PRN PRN Reason: pain 5-8 Stop: 10/22/24 02:59 Last Admin: 10/15/24 21:24 Dose: 5 mg Oxycodone HCl (Oxycodone Hcl Ir 5 Mg Tab (Immediate Release)) 10 mg PO Q6H PRN PRN Reason: pain 9-10 Stop: 10/22/24 02:59 Last Admin: 10/13/24 12:45 Dose: 10 mg Polyethylene Glycol (Polyethylene (Miralax) 17 Gm Pack) 17 gm PO DAILY PRN PRN Reason: Constipation Stop: 11/07/24 02:59 Polyethylene Glycol (Polyethylene (Miralax) 17 Gm Pack) 17 gm PO BID [facility] Stop: 11/07/24 08:59 Last Admin: 10/15/24 21:04 Dose: Not Given Potassium Chloride (Potassium Chloride 10 Meq Tabcr) 40 meq PO BID [facility] Stop: 11/11/24 08:59 Last Admin: 10/15/24 21:02 Dose: 40 meq Senna/Docusate Sodium (Docusate Sodium/Senna 50/8.6mg Tab) 1 tab PO BID [place] Stop: 11/07/24 08:59 Last Admin: 10/15/24 21:19 Dose: Not Given Voriconazole (Voriconazole 200 Mg Tablet) 200 mg PO Q12 [place] Stop: 11/07/24 08:59 Last Admin: 10/15/24 21:24 Dose: 200 mg
[2024-10-16] MEDS ORDERED: VANCOMYCIN CONSULT ACTIVE PRN (13:05)
[2024-10-16] MEDS: VANCOMYCIN HCL 1,250 MG in SODIUM CHLORIDE 0.9% 250 ML IV ONE (13:37)
--- NOTE | 2024-10-16 14:48 | Pharmacy Report ---
Pharmacy PK ABX Note - Date of Service October 16, 2024 - Assessment and Plan Assessment 10/16: * The vancomycin was d/c and daptomycin was started on 10/11. Today the patient was changed back to vancomycin per ID recommendation as patient's condition is reportedly declining. IR drainage of fluid collection of lumbar spine done and cultured x 2 on 10/13. Both cultures grew S. epidermidis. Repeat blood cultures done 10/15 x 2 are no growth to date (preliminary). * Indwelling port removed as well on 10/14. * Will reload vancomycin and start a regimen targeting the upper end of the AUC goal. (ID recommends dosing for possible meningitis). * 10/10: 79 year old started on vancomycin due to positive blood culture result/Gm+ cocci -staph epi / BCID2 positive for mecA/C. Only 1/2 bottles positive, therefore potential for contaminant. Repeat blood cultures pending. Pt with history of recent lumbar spine fracture - admitted for worsening pain. Per notes, ortho recommending conservative measures. Also undergoing chemotherapy with last session in August. On suppressive abx with levaquin, voriconazole and acyclovir. Plan Vancomycin * Loading dose: 1250 mg IV x 1 * Maintenance dose: 750 mg IV every 8 hours * Regimen is predicted to achieve target AUC/ARNOLD of 400-600 mg/L.hr * A vancomycin level has been scheduled for tomorrow at 1300 Pharmacy will continue to follow and will adjust dose/frequency as necessary. Thank you. Pharmacy has transitioned to AUC monitoring for vancomycin. AUC/ARNOLD is the preferred PK/PD target and is associated with decreased risk of nephrotoxicity compared to traditional trough targets.
[2024-10-16] MEDS: VANCOMYCIN 750 MG in SODIUM CHLORIDE 0.9% 250 ML IV SCH (21:33)
[2024-10-16] MEDS: MELATONIN 3 MG TAB PO PRN (22:47)
[2024-10-17 06:11] LABS: Hematocrit (blood only) 32.2 % (37.0-47.0); Hemoglobin 10.2 g/dl (12.0-16.0); Mean Corpuscular Hemoglobin 31.1 pg (25.0-34.0); Mean Corpuscular Volume 98.2 fL (80.0-100.0); Platelet Count 289 K/uL (130-400); RDW Standard Deviation 55.9 fL (36.4-46.3); Red Blood Count 3.28 M/uL (4.20-5.40); White Blood Count 6.49 K/ul (4.8-10.8)
[2024-10-17 06:31] LABS: Anion Gap 8.0 (3-11); Blood Urea Nitrogen 12.0 mg/dl (6-23); Calcium 8.9 mg/dl (8.6-10.3); Carbon Dioxide 26.0 mmol/L (21-32); Chloride 104.0 mmol/L (98-107); Creatinine Clr Calc Pharmacy 84.7 ml/min; Glucose 108.0 mg/dl (70-99(Fasting)); Magnesium 1.9 mg/dl (1.7-2.4); Potassium 4.1 mmol/L (3.5-5.1); Sodium 138.0 mmol/L (136-145)
--- NOTE | 2024-10-17 07:51 | Hospitalist Progress Note ---
Date of Service October 17, 2024 Assessment & Plan (1) Severe back pain: Plan: 79 yo F with type 2 diabetes, dyslipidemia, paroxysmal SVT, hypertension, GERD, osteoarthritis of both knees, AML, generalized anxiety disorder, spinal stenosis of lumbar region, persistent insomnia who was recently in the hospital for lumbar spine compression fracture and discharged to rehab comes back with severe back pain. Patient states at rehab she was having a lot of constipation and stool softeners were given since then she had a lot of back pain. The stool softeners relieved her constipation but the back pain got worse. She could not tolerate the back pain this reason she was came to the hospital today. She thinks she might had fever. Denies any bowel incontinence. She says sometimes she gets bladder incontinence but it is nothing new. Pain is not shooting down the legs. Ambulating with a walker but now the pain got worse. Denies any chest pain. No shortness of breath. No cough. No headache. No runny nose or sore throat. No difficulty swallowing. Last couple of days appetite is down. Last chemo was in August. She was supposed to get chemo on 09/29/2024 but because she is rehab it was held. Currently while resting seems comfortable and hemod ynamics are okay. Severe back pain L1 and L3 compression fractures Staph epidermidis bacteremia Bilateral iliopsoas muscle fluid collections, likely infected Coming from rehab CT scan done in the ER shows same L1 L3 compression fractures patient's back pain not responding with pain management Discussed with Dr. Bergman (orthospine) In light of possible bacteremia, recommend repeat MRI of the spine Continue pain control, PT OT 10/12 MRI Lumbar spine reviewed: + fluid collections, edema iliopsoas, bilateral, likely infected Discussed with Dr. Bergman, agree with possible infected fluid collections around the lumbar spine Broaden antibiotic coverage with Zosyn in addition to daptomycin 10/[address] Bergman, recommend IR drainage of fluid collection in the lumbar spine Discussed with SARAH Rodriguez, IR drainage performed 10/16 Fluid drainage culture: positive for Staph epi - contacted ID - recommend to switch to vancomycin dose for poss. meningitis - discussed w/ pharmacy. dapto stopped, also zosyn to be stopped Dr. Bergman also updated - discussed with - no surgical intervention recommended further recommendations as per Dr. Bergman and ID Per ID Please continue on IV vancomycin to be adjusted based on vancomycin trough/AUC. She will require at least 6 to 8 weeks of IV antibiotics. I would also recommend repeating the MRI of the lumbar spine towards the end of treatment course. We would appreciate further assessment by the spine surgery for possible surgical intervention. Staph epidermidis bacteremia Initial blood culture (10/07): Staph epidermidis 1 out of 2 bottles Repeat blood cultures (10/10): Staph epidermidis 1 out of 2 bottles Echocardiogram: No mention of possible vegetation ID service recommends removal of indwelling port, port removed on 10/14 third set of blood cultures (10/15): pending Lower abdominal Discomfort UA: Negative for UTI KUB: No obstruction, minimal fecal load -- resolved Hypokalemia replace and monitor AML undergoing chemotherapy History of pancytopenia WBC 6.5. Hemoglobin 10.1. Platelets 340 Currently undergoing monthly chemotherapy with decitabine/venetoclax Last chemo was in August. This month chemo was delayed because patient was in rehab Has appointment with Dr. Gaines on 10/29/2024 per last admission Continue suppressive antibiotics Levaquin, voriconazole and acyclovir 10/14 CBC stable Discussed with Dr. Gaines, patient is in remission from AML according to her she agrees with a port removal discussion of further chemotherapy with patient and family after patient recovers from this episode Hypertension On amlodipine. Last admit amlodipine was held for soft blood pressures Continue amlodipine for now. On furosemide with potassium supplements -- hold Lasix for now as patient is on the dry side Hyperlipidemia On statin Anxiety/depression On citalopram and buspirone Diabetes Diet controlled current HbA1c levels: 6.4 Sliding scale for now Recent A port placement supposed to followup with general surgery for evaluation Gen Surg consulted -- (+) bacteremia -- ID service consulted, recommend removal of port A-port removed 10/14/2024 DVT prophylaxis Lovenox Disposition Med Surg Full Code Disposition pending lives at home PT/OT eval Admission and Anticipated Discharge Date Admission Date: October 08, 2024 Subjective Pt seen in follow up Hx of AML, back pain Found to be bacteremic A-port removed by gen. surgery (10/14). Previously also fluid removal by IR (psoas muscle abscess) - cultx now posit. for Staph epi Currently lying in bed in NAD, denies fever, chills, chest pain, shortness of breath. No abd. pain. Says she is feeling better than yesterday. Still with back ache but feels it's better. had loose stool - c. diff obtained was negative Discussed posit. cultx from IR w/ ID - switched to vancomycin - dose for poss. meningitis - discussed w/ pharmacy. Discussed w/ ortho-spine (Dr. Bergman - no surg. intervention recommended) Yesterday also discussed w/ Dr. Gaines - reports AML in remission, pt's daughter worried about po inatke (ongoing for some time) Daughter Nadya updated yesterday in detail over the phone and at the bedside. Review of Systems Review of Systems: All systems reviewed & are unremarkable except as noted in Subjective Physical Exam Physical Exam: General- WD/WN elderly F in NAD Eyes- anicteric Neck- no JVD Lungs- clear breath sounds bilaterally, no rales/wheezes Surgical site wound left upper chest wall: clean, dry, no discharge, no erythema Heart- normal rate, regular rhythm; no murmurs Abdomen- normal bowel sounds, nondistended, soft, nontender Extremities- no pretibial edema, no calf tenderness, moves extremities Neuro- awake, alert, answers appropriately, speech fluent, no facial asymmetry, moves extremities Skin- warm & dry Results & Data Results & Data Vital Signs (Past 12 Hours) Vital Signs Temp Pulse Resp BP Pulse Ox O2 Del Method 10/17/24 07:27 36.6 C 92 H 17 131/75 96 Room Air 10/16/24 23:26 36.7 C 88 18 123/89 96 Room Air Laboratory Results 10/17/24 10/17/24 10/16/24 Range/Units 07:27 05:37 20:21 WBC 6.49 (4.8-10.8) K/ul RBC 3.28 L (4.20-5.40) M/uL Hgb 10.2 L (12.0-16.0) g/dl Hct 32.2 L (37.0-47.0) % MCV 98.2 (80.0-100.0) fL MCH 31.1 (25.0-34.0) pg MCHC 31.7 L (32.0-36.0) g/dL RDW Std Deviation 55.9 H (36.4-46.3) fL RDW Coeff of Patti 15.7 H (11.5-14.5) % Plt Count 289 (130-400) K/uL MPV 8.9 L (9.4-12.4) fL Sodium 138 (136-145) mmol/L Potassium 4.1 (3.5-5.1) mmol/L Chloride 104 (98-107) mmol/L Carbon Dioxide 26 (21-32) mmol/L Anion Gap 8 (3-11) BUN 12 (6-23) mg/dl Creatinine 0.46 L (0.6-1.2) mg/dl Est Cr Clr Drug Dosing 84.7 ml/min eGFR 98.50 BUN/Creatinine Ratio 26.1 H (10-20) Glucose 108 H (70-99(Fasting)) mg/dl POC Glucose 114 H 143 H (70-99) mg/dl Calcium 8.9 (8.6-10.3) mg/dl Phosphorus 3.7 (2.5-4.9) mg/dl Magnesium 1.9 (1.7-2.4) mg/dl 10/16/24 10/16/24 Range/Units 16:42 11:28 WBC (4.8-10.8) K/ul RBC (4.20-5.40) M/uL Hgb (12.0-16.0) g/dl Hct (37.0-47.0) % MCV (80.0-100.0) fL MCH (25.0-34.0) pg MCHC (32.0-36.0) g/dL RDW Std Deviation (36.4-46.3) fL RDW Coeff of Patti (11.5-14.5) % Plt Count (130-400) K/uL MPV (9.4-12.4) fL Sodium (136-145) mmol/L Potassium (3.5-5.1) mmol/L Chloride (98-107) mmol/L Carbon Dioxide (21-32) mmol/L Anion Gap (3-11) BUN (6-23) mg/dl Creatinine (0.6-1.2) mg/dl Est Cr Clr Drug Dosing ml/min eGFR BUN/Creatinine Ratio (10-20) Glucose (70-99(Fasting)) mg/dl POC Glucose 107 H 110 H (70-99) mg/dl Calcium (8.6-10.3) mg/dl Phosphorus (2.5-4.9) mg/dl Magnesium (1.7-2.4) mg/dl Medications Administered Current Inpatient Medications Acetaminophen (Acetaminophen 325 Mg Tab) 650 mg PO Q4H PRN PRN Reason: pain/fever Stop: 11/07/24 02:59 Last Admin: 10/16/24 17:06 Dose: 650 mg Acyclovir (Acyclovir 400 Mg Tab) 400 mg PO BID [place] Stop: 11/07/24 08:59 Last Admin: 10/16/24 20:38 Dose: 400 mg Amlodipine Besylate (Amlodipine Besylate 5 Mg Tab) 5 mg PO QAM [place] Stop: 11/07/24 08:59 Last Admin: 10/16/24 09:18 Dose: 5 mg Atorvastatin Calcium (Atorvastatin 20 Mg Tab) 20 mg PO HS [facility] Stop: 11/07/24 20:59 Last Admin: 10/10/24 21:08 Dose: 20 mg Buspirone HCl (Buspirone 5 Mg Tab) 5 mg PO AMHS [place] Stop: 11/07/24 08:59 Last Admin: 10/16/24 20:38 Dose: 5 mg Citalopram Hydrobromide (Citalopram 20 Mg Tab) 10 mg PO QAM [place] Stop: 11/07/24 08:59 Last Admin: 10/16/24 09:18 Dose: 10 mg Dextrose (Dextrose 50% 50 Ml Syringe) 25 - 50 ml IV UD PRN; Protocol PRN Reason: Hypoglycemia Protocol Stop: 11/07/24 02:59 Enoxaparin Sodium (Enoxaparin Inj 40 Mg/0.4 Ml Syr) 40 mg SQ Q24H [place] Stop: 11/07/24 08:59 Last Admin: 10/13/24 08:46 Dose: Not Given Gabapentin (Gabapentin 100 Mg Cap) 100 mg PO BID [place] Stop: 11/07/24 08:59 Last Admin: 10/16/24 20:38 Dose: 100 mg Glucagon (Glucagon For Inj 1 Mg Vial) 1 mg SQ UD PRN; Protocol PRN Reason: Hypoglycemia Protocol Stop: 11/07/24 02:59 Glucose (Glucose 40% Gel 15 Gm Tube) 15 - 30 gm PO UD PRN; Protocol PRN Reason: Hypoglycemia Protocol Stop: 11/07/24 02:59 Glucose (Glucose 10 Tab/Tube) 4 - 8 tab PO UD PRN; Protocol PRN Reason: Hypoglycemia Protocol Stop: 11/07/24 02:59 Heparin Sodium (Porcine) (Heparin 100 Unit/Ml 5ml Flush) 5 ml FLUSH PRN PRN PRN Reason: Flush Stop: 11/07/24 03:03 Last Admin: 10/12/24 05:22 Dose: 5 ml Hydromorphone HCl (Hydromorphone Inj 1 Mg/Ml Syringe) 1 mg IV Q4H PRN PRN Reason: Breakthrough Pain Stop: 10/22/24 02:59 Last Admin: 10/13/24 19:31 Dose: 1 mg Promethazine HCl (Phenergan) 6.25 mg in 50.25 mls @ 201 mls/hr IV Q6H PRN PRN Reason: Nausea And Vomiting Stop: 11/08/24 08:11 Last Infusion: 10/11/24 08:20 Dose: Infused Piperacillin Sod/Tazobactam Sod (Zosyn) 4.5 gm in 100 mls @ 25 mls/hr IV Q8H [facility]; Protocol Stop: 11/23/24 20:59 Last Admin: 10/17/24 04:12 Dose: 25 mls/hr Vancomycin HCl 750 mg/ Sodium (Chloride) 265 mls @ 200 mls/hr IV Q8H [facility] Stop: 10/30/24 21:59 Last Infusion: 10/17/24 07:48 Dose: Infused Insulin Aspart (Insulin Aspart Per Unit Charge) 0 units SC ACHS [facility] Stop: 11/13/24 05:59 Last Admin: 10/16/24 20:46 Dose: Not Given Lactobacillus Acidophilus (Advanced Probiotic 625 Mg Capsule) 1,250 mg PO DAILY [facility] Stop: 11/09/24 08:59 Last Admin: 10/16/24 12:23 Dose: Not Given Levofloxacin (Levofloxacin 500 Mg Tab) 500 mg PO QAM [facility]; Protocol Stop: 11/07/24 08:59 Last Admin: 10/14/24 12:57 Dose: 500 mg Lidocaine (Lidocaine 5% 1 Patch) 1 patch TD [facility] Stop: 11/07/24 08:59 Last Admin: 10/16/24 17:08 Dose: Not Given Loperamide HCl (Loperamide Hcl 2 Mg Cap) 2 mg PO UD PRN PRN Reason: diarrhea Stop: 11/13/24 18:36 Lorazepam (Lorazepam 0.5 Mg Tab) 0.5 mg PO DAILY PRN PRN Reason: Insomnia Stop: 11/07/24 02:59 Last Admin: 10/11/24 21:38 Dose: 0.5 mg Melatonin (Melatonin 3 Mg Tab) 3 mg PO HS PRN PRN Reason: Insomnia Stop: 11/07/24 03:07 Last Admin: 10/16/24 22:47 Dose: 3 mg Miscellaneous (Carbohydrates For Hypoglycemia ) 15 - 30 gm PO UD PRN PRN Reason: Hypoglycemia Protocol Stop: 11/07/24 02:59 Miscellaneous (Remove Lidoderm Patch) 1 each N/A DAILY@2100 [facility] Stop: 11/07/24 20:59 Last Admin: 10/16/24 20:39 Dose: 1 each Miscellaneous Information (Vancomycin Consult Active) 1 each N/A UD PRN PRN Reason: Consult Stop: 11/15/24 13:04 Oxycodone HCl (Oxycodone Hcl Ir 5 Mg Tab (Immediate Release)) 5 mg PO Q6H PRN PRN Reason: pain 5-8 Stop: 10/22/24 02:59 Last Admin: 10/16/24 22:47 Dose: 5 mg Oxycodone HCl (Oxycodone Hcl Ir 5 Mg Tab (Immediate Release)) 10 mg PO Q6H PRN PRN Reason: pain 9-10 Stop: 10/22/24 02:59 Last Admin: 10/16/24 11:32 Dose: 10 mg Polyethylene Glycol (Polyethylene (Miralax) 17 Gm Pack) 17 gm PO DAILY PRN PRN Reason: Constipation Stop: 11/07/24 02:59 Polyethylene Glycol (Polyethylene (Miralax) 17 Gm Pack) 17 gm PO BID [facility] Stop: 11/07/24 08:59 Last Admin: 10/16/24 20:38 Dose: 17 gm Potassium Chloride (Potassium Chloride 10 Meq Tabcr) 40 meq PO BID [facility] Stop: 11/11/24 08:59 Last Admin: 10/16/24 20:40 Dose: 40 meq Senna/Docusate Sodium (Docusate Sodium/Senna 50/8.6mg Tab) 1 tab PO BID [facility] Stop: 11/07/24 08:59 Last Admin: 10/16/24 20:38 Dose: 1 tab Voriconazole (Voriconazole 200 Mg Tablet) 200 mg PO Q12 [place] Stop: 11/07/24 08:59 Last Admin: 10/16/24 20:41 Dose: 200 mg
--- NOTE | 2024-10-17 08:59 | Orthopedic Progress Note ---
Date of Service October 17, 2024 Assessment & Plan (1) Compression fracture of L3 vertebra: Plan: At this time encouraged bed to chair ambulate as tolerated. Will reinitiate physical therapy. She understands she is quite weak and will take several weeks of rehab to rebuild her independence and strength. From orthopedic standpoint she is not a surgical candidate. Admission and Anticipated Discharge Date Admission Date: October 08, 2024 Subjective Patient's was up today with the nurse and had a brace in place. She notes significant back pain but was able to ambulate. At this time denies any leg pain. Physical Exam Physical Exam: Patient is currently in bed. Is visual strength testing lower extremities. Sensory intact. Results & Data Vital Signs (Past 12 Hours) Vital Signs Temp Pulse Resp BP Pulse Ox O2 Del Method 10/17/24 07:27 36.6 C 92 H 17 131/75 96 Room Air 10/16/24 23:26 36.7 C 88 18 123/89 96 Room Air (1) Compression fracture of L3 vertebra Encounter type: initial encounter Qualified Code(s): S32.030A - Wedge compression fracture of third lumbar vertebra, initial encounter for closed fracture
--- NOTE | 2024-10-17 11:27 | Infectious Disease Progress Nt ---
Date of Service October 17, 2024 Telehealth Information I performed this visit using a real-time telehealth connection between my location and the patients location ([facility]). After connecting through interactive tele-video, patient was identified by name and date of and/or wristband check.Patient (or authorized healthcare advertising account representative) was informed that this was a telemedicine visit and it was being conducted confidentially over secure lines. My office door was closed and no o ne else was present in the room with me.Patient (or authorized healthcare advertising account representative) provided consent to proceed with the visit, expressed an understanding of privacy and security of the telemedicine visit, and gave permission to have a hospital advertising account representative in the room in order to assist with the visit and to conduct portions of the visit, as needed. I informed the patient (or authorized healthcare advertising account representative) that I reviewed their record and presented the opportunity for them to ask any questions regarding the visit today. The patient agreed to participate. Assessment & Plan (1) Osteomyelitis of lumbar vertebra: (2) Psoas muscle abscess: (3) Staphylococcus epidermidis bacteremia: (4) Compression fracture of lumbar vertebra: (5) AML (acute myeloblastic leukemia): Plan Please continue on IV vancomycin to be adjusted based on vancomycin trough/AUC. She will require at least 6 to 8 weeks of IV antibiotics. I would also recommend repeating the MRI of the lumbar spine towards the end of treatment course. We would appreciate further assessment by the spine surgery for possible surgical intervention. Subjective Ms. You is a 79-year-old woman who was admitted to [facility] on 10/08/2024 because of severe back pain. Apparently, she was recently discharged from the hospital after a 1 week stay from 09/25 until 10/01 because of compression fracture of lumbar vertebrae. At that time, no interventions or surgeries were performed and she was discharged in stable condition to a rehabilitation center. On this presentation, she was afebrile and the rest of her vitals showed mildly elevated blood pressure and tachycardia from time to time. Shortly after admission, 1 of 4 bottles of blood culture came back positive for Staph epidermidis which suspected to be contamination. Repeat blood culture on 10/10 also grew Staph epidermidis in 1/4 bottles. Therefore MRI of the spine was repeated on 10/12 which showed the subacute compression fracture at L3 with a new fracture at L2. It further demonstrated marked edema within the psoas muscles bilaterally around L1 and L2. The MRI was also concerning for possible epidural fluid collection with disc fragments and/or bone fragments at the level of L1 causing moderate to severe bilateral neural foraminal stenosis. She eventually underwent IR guided aspiration of the right psoas muscle collection which came back positive for Staph epidermidis. She also had an IV port which was placed for her AML in the past and had to be removed on 10/14/2024. Results & Data Vital Signs (Past 12 Hours) Vital Signs Temp Pulse Resp BP Pulse Ox O2 Del Method 10/17/24 07:27 36.6 C 92 H 17 131/75 96 Room Air 10/16/24 23:26 36.7 C 88 18 123/89 96 Room Air Laboratory Results Microbiology: 10/07/2024: 1 of 4 bottles of blood culture positive for Staph epidermidis 10/10/2024: 1 of 4 bottles of blood culture positive for Staph epidermidis 10/13/2024: 2 aspirate samples from right psoas abscess grew Staph epidermidis 10/14/2024: IV port tip culture with no growth 10/15/2024: 2 sets of blood culture negative to date (today is 10/17/2024) Diagnostic Findings Imaging: MRI lumbar spine on 10/12/2024: 1. Again seen are subacute compression fractures of L1, L2, and L3 as detailed above. The L2 fracture is new from 09/25/2024. These fractures show marrow edema, and loss of height is similar to the 10/07/2024 examination 2. No new fracture is seen 3. There is marked edema within the psoas musculature bilaterally with bilateral fluid collections within the psoas muscles at L1 and L2. These are new from 09/25/2024 and pathologically indeterminate. These could represent hematoma, with abscesses not excluded. Clinical correlation will be essential. 4. There is increasing retropulsion of fragments at L1 with moderate effacement of the anterior thecal sac. There is also likely inferiorly extruded disc/bone fragments eccentric to the left which impinge on the transit left-sided nerve roots. Given the presence of fluid collections within the adjacent iliopsoas musculature, a component of epidural fluid collection at this level is not excluded. 5. Laterally extruded disc fragments and/or bone fragments at L1 likely causes moderate to severe bilateral neural foraminal stenosis at L1-L2. 6. There is nonspecific fluid within the discs at L1-L2, L4-L5, and L5-S1, which is similar in appearance to previous and may be on a posttraumatic/degenerative basis. Given the clinical concern, infection would be impossible to entirely exclude and clinical correlation will be essential. 7. Spondylotic change as above. See discussion for detailed level by level analysis. (5) AML (acute myeloblastic leukemia) Leukemia Active/Remission status: without remission Qualified Code(s): C92.00 - Acute myeloblastic leukemia, not having achieved remission
--- NOTE | 2024-10-17 13:59 | Pharmacy Report ---
Pharmacy PK ABX Note - Date of Service October 17, 2024 - Assessment and Plan Assessment 10/17 * Plan for 6-8 weeks of vancomycin. Random level today 11.6 mcg/mL suggests attainment of target AUC/ARNOLD * Will continue with current dose. Can get additional level at steady state 10/16: * The vancomycin was d/c and daptomycin was started on 10/11. Today the patient was changed back to vancomycin per ID recommendation as patient's condition is reportedly declining. IR drainage of fluid collection of lumbar spine done and cultured x 2 on 10/13. Both cultures grew S. epidermidis. Repeat blood cultures done 10/15 x 2 are no growth to date (preliminary). * Indwelling port removed as well on 10/14. * Will reload vancomycin and start a regimen targeting the upper end of the AUC goal. (ID recommends dosing for possible meningitis). * 10/10: 79 year old started on vancomycin due to positive blood culture result/Gm+ cocci -staph epi / BCID2 positive for mecA/C. Only 1/2 bottles positive, therefore potential for contaminant. Repeat blood cultures pending. Pt with history of recent lumbar spine fracture - admitted for worsening pain. Per notes, ortho recommending conservative measures. Also undergoing chemotherapy with last session in August. On suppressive abx with levaquin, voriconazole and acyclovir. Plan Vancomycin * Loading dose: 1250 mg IV x 1 * Maintenance dose: 750 mg IV every 8 hours * Random level 11.6 mcg/mL * Regimen is predicted to achieve target AUC/ARNOLD of 400-600 mg/L.hr * Additional vancomycin level to be scheduled. Pharmacy will continue to follow and will adjust dose/frequency as necessary. Thank you. Pharmacy has transitioned to AUC monitoring for vancomycin. AUC/ARNOLD is the preferred PK/PD target and is associated with decreased risk of nephrotoxicity compared to traditional trough targets.
[2024-10-17] MEDS: VANCOMYCIN LEVEL ONE (14:44)
[2024-10-18 06:39] LABS: Hematocrit (blood only) 36.9 % (37.0-47.0); Hemoglobin 11.6 g/dl (12.0-16.0); Mean Corpuscular Hemoglobin 31.2 pg (25.0-34.0); Mean Corpuscular Volume 99.2 fL (80.0-100.0); Platelet Count 327 K/uL (130-400); RDW Standard Deviation 57.9 fL (36.4-46.3); Red Blood Count 3.72 M/uL (4.20-5.40); White Blood Count 7.60 K/ul (4.8-10.8)
[2024-10-18 06:49] LABS: Anion Gap 16.0 (3-11); Calcium 9.5 mg/dl (8.6-10.3); Carbon Dioxide 18.0 mmol/L (21-32); Chloride 104.0 mmol/L (98-107); Magnesium 1.8 mg/dl (1.7-2.4); Potassium 3.8 mmol/L (3.5-5.1); Sodium 138.0 mmol/L (136-145)
[2024-10-18 06:56] LABS: Blood Urea Nitrogen 8.0 mg/dl (6-23); Creatinine Clr Calc Pharmacy 92.8 ml/min; Glucose 130.0 mg/dl (70-99(Fasting))
[2024-10-18] MEDS ORDERED: POTASSIUM PHOS 3 MMOL/1 ML INFUSION IV STA (08:11)
--- NOTE | 2024-10-18 08:14 | Hospitalist Progress Note ---
Date of Service October 18, 2024 Assessment & Plan (1) Severe back pain: Plan: 79 yo F with type 2 diabetes, dyslipidemia, paroxysmal SVT, hypertension, GERD, osteoarthritis of both knees, AML, generalized anxiety disorder, spinal stenosis of lumbar region, persistent insomnia who was recently in the hospital for lumbar spine compression fracture and discharged to rehab comes back with severe back pain. Patient states at rehab she was having a lot of constipation and stool softeners were given since then she had a lot of back pain. The stool softeners relieved her constipation but the back pain got worse. She could not tolerate the back pain this reason she was came to the hospital today. She thinks she might had fever. Denies any bowel incontinence. She says sometimes she gets bladder incontinence but it is nothing new. Pain is not shooting down the legs. Ambulating with a walker but now the pain got worse. Denies any chest pain. No shortness of breath. No cough. No headache. No runny nose or sore throat. No difficulty swallowing. Last couple of days appetite is down. Last chemo was in August. She was supposed to get chemo on 09/29/2024 but because she is rehab it was held. Currently while resting seems comfortable and hemod ynamics are okay. Severe back pain L1 and L3 compression fractures Staph epidermidis bacteremia Bilateral iliopsoas muscle fluid collections, likely infected Coming from rehab CT scan done in the ER shows same L1 L3 compression fractures patient's back pain not responding with pain management Discussed with Dr. Bergman (orthospine) In light of possible bacteremia, recommend repeat MRI of the spine Continue pain control, PT OT 10/12 MRI Lumbar spine reviewed: + fluid collections, edema iliopsoas, bilateral, likely infected Discussed with Dr. Bergman, agree with possible infected fluid collections around the lumbar spine Broaden antibiotic coverage with Zosyn in addition to daptomycin 10/[address] Bergman, recommend IR drainage of fluid collection in the lumbar spine Discussed with SARAH Rodriguez, IR drainage performed 10/16 Fluid drainage culture: positive for Staph epi - contacted ID - recommend to switch to vancomycin dose for poss. meningitis - discussed w/ pharmacy. dapto stopped, also zosyn to be stopped Dr. Bergman also updated - discussed with - no surgical intervention recommended further recommendations as per Dr. Bergman and ID Per ID Please continue on IV vancomycin to be adjusted based on vancomycin trough/AUC. She will require at least 6 to 8 weeks of IV antibiotics. I would also recommend repeating the MRI of the lumbar spine towards the end of treatment course. We would appreciate further assessment by the spine surgery for possible surgical intervention. Called lab and tried to get sensitivities from cultx obtained - pending Staph epidermidis bacteremia Initial blood culture (10/07): Staph epidermidis 1 out of 2 bottles Repeat blood cultures (10/10): Staph epidermidis 1 out of 2 bottles Echocardiogram: No mention of possible vegetation ID service recommends removal of indwelling port, port removed on 10/14 third set of blood cultures (10/15): pending Lower abdominal Discomfort UA: Negative for UTI KUB: No obstruction, minimal fecal load -- resolved Hypokalemia replace and monitor AML undergoing chemotherapy History of pancytopenia WBC 6.5. Hemoglobin 10.1. Platelets 340 Currently undergoing monthly chemotherapy with decitabine/venetoclax Last chemo was in August. This month chemo was delayed because patient was in rehab Has appointment with Dr. Gaines on 10/29/2024 per last admission Continue suppressive antibiotics Levaquin, voriconazole and acyclovir 10/14 CBC stable Discussed with Dr. Gaines, patient is in remission from AML according to her she agrees with a port removal discussion of further chemotherapy with patient and family after patient recovers from this episode Hypertension On amlodipine. Last admit amlodipine was held for soft blood pressures Continue amlodipine for now. On furosemide with potassium supplements -- hold Lasix for now as patient is on the dry side Hyperlipidemia On statin Anxiety/depression On citalopram and buspirone Diabetes Diet controlled current HbA1c levels: 6.4 Sliding scale for now Recent A port placement supposed to followup with general surgery for evaluation Gen Surg consulted -- (+) bacteremia -- ID service consulted, recommend removal of port A-port removed 10/14/2024 DVT prophylaxis Lovenox Disposition Med Surg Full Code Disposition pending lives at home PT/OT eval Admission and Anticipated Discharge Date Admission Date: October 08, 2024 Subjective Pt seen in follow up Hx of AML, back pain Found to be bacteremic A-port removed by gen. surgery (10/14). Previously also fluid removal by IR (psoas muscle abscess) - cultx posit. for Staph epi had loose stool - c. diff obtained was negative Discussed posit. cultx from IR w/ ID - switched to vancomycin - dose for poss. meningitis - discussed w/ pharmacy. Discussed w/ ortho-spine (Dr. Bergman - no surg. intervention recommended) Previously also discussed w/ Dr. Gaines - reports AML in remission, pt's daughter worried about po inatke (ongoing for some time) Other daughter updated yesterday at the bedside Overnight pt had episode of agitation, trying to get out of bed, striking at nurse per report, received im zyprexa. Currently pt lying in bed in NAD, denies fever, chills, chest pain, shortness of breath. No abd. pain. Still with back ache. She is upset about last night. Review of Systems Review of Systems: All systems reviewed & are unremarkable except as noted in Subjective Physical Exam Physical Exam: General- WD/WN elderly F in NAD Eyes- anicteric Neck- no JVD Lungs- clear breath sounds anteriorly, no rales/wheezes Surgical site wound left upper chest wall: clean, dry, no discharge, no erythema Heart- normal rate, regular rhythm; no murmurs Abdomen- normal bowel sounds, nondistended, soft, nontender Extremities- no pretibial edema, no calf tenderness, moves extremities Neuro- awake, alert, answers appropriately, speech fluent, no facial asymmetry, moves extremities Skin- warm & dry Results & Data Results & Data Vital Signs (Past 12 Hours) Vital Signs Temp Pulse Resp BP Pulse Ox O2 Del Method 10/18/24 07:59 36.9 C 101 H 18 136/76 95 Room Air 10/17/24 23:01 36.7 C 97 H 14 137/77 97 Room Air Laboratory Results 10/18/24 10/18/24 10/17/24 Range/Units 07:30 05:55 20:19 WBC 7.60 (4.8-10.8) K/ul RBC 3.72 L (4.20-5.40) M/uL Hgb 11.6 L (12.0-16.0) g/dl Hct 36.9 L (37.0-47.0) % MCV 99.2 (80.0-100.0) fL MCH 31.2 (25.0-34.0) pg MCHC 31.4 L (32.0-36.0) g/dL RDW Std Deviation 57.9 H (36.4-46.3) fL RDW Coeff of Patti 15.8 H (11.5-14.5) % Plt Count 327 (130-400) K/uL MPV 9.1 L (9.4-12.4) fL Sodium 138 (136-145) mmol/L Potassium 3.8 (3.5-5.1) mmol/L Chloride 104 (98-107) mmol/L Carbon Dioxide 18 L (21-32) mmol/L Anion Gap 16 H (3-11) BUN 8 (6-23) mg/dl Creatinine 0.42 L (0.6-1.2) mg/dl Est Cr Clr Drug Dosing 92.8 ml/min eGFR 100.68 BUN/Creatinine Ratio 19.0 (10-20) Glucose 130 H (70-99(Fasting)) mg/dl POC Glucose 119 H 129 H (70-99) mg/dl Calcium 9.5 (8.6-10.3) mg/dl Phosphorus 2.4 L D (2.5-4.9) mg/dl Magnesium 1.8 (1.7-2.4) mg/dl Random Vancomycin (10-20) mcg/ml 10/17/24 10/17/24 10/17/24 Range/Units 16:34 13:04 11:31 WBC (4.8-10.8) K/ul RBC (4.20-5.40) M/uL Hgb (12.0-16.0) g/dl Hct (37.0-47.0) % MCV (80.0-100.0) fL MCH (25.0-34.0) pg MCHC (32.0-36.0) g/dL RDW Std Deviation (36.4-46.3) fL RDW Coeff of Patti (11.5-14.5) % Plt Count (130-400) K/uL MPV (9.4-12.4) fL Sodium (136-145) mmol/L Potassium (3.5-5.1) mmol/L Chloride (98-107) mmol/L Carbon Dioxide (21-32) mmol/L Anion Gap (3-11) BUN (6-23) mg/dl Creatinine (0.6-1.2) mg/dl Est Cr Clr Drug Dosing ml/min eGFR BUN/Creatinine Ratio (10-20) Glucose (70-99(Fasting)) mg/dl POC Glucose 155 H 132 H (70-99) mg/dl Calcium (8.6-10.3) mg/dl Phosphorus (2.5-4.9) mg/dl Magnesium (1.7-2.4) mg/dl Random Vancomycin 11.6 (10-20) mcg/ml Medications Administered Current Inpatient Medications Acetaminophen (Acetaminophen 325 Mg Tab) 650 mg PO Q4H PRN PRN Reason: pain/fever Stop: 11/07/24 02:59 Last Admin: 10/17/24 19:52 Dose: 650 mg Acyclovir (Acyclovir 400 Mg Tab) 400 mg PO BID [place] Stop: 11/07/24 08:59 Last Admin: 10/18/24 08:11 Dose: 400 mg Amlodipine Besylate (Amlodipine Besylate 5 Mg Tab) 5 mg PO QAM [place] Stop: 11/07/24 08:59 Last Admin: 10/18/24 08:11 Dose: 5 mg Atorvastatin Calcium (Atorvastatin 20 Mg Tab) 20 mg PO HS [place] Stop: 11/07/24 20:59 Last Admin: 10/10/24 21:08 Dose: 20 mg Buspirone HCl (Buspirone 5 Mg Tab) 5 mg PO AMHS [place] Stop: 11/07/24 08:59 Last Admin: 10/18/24 08:11 Dose: 5 mg Citalopram Hydrobromide (Citalopram 20 Mg Tab) 10 mg PO QAM [place] Stop: 11/07/24 08:59 Last Admin: 10/18/24 08:12 Dose: 10 mg Dextrose (Dextrose 50% 50 Ml Syringe) 25 - 50 ml IV UD PRN; Protocol PRN Reason: Hypoglycemia Protocol Stop: 11/07/24 02:59 Enoxaparin Sodium (Enoxaparin Inj 40 Mg/0.4 Ml Syr) 40 mg SQ Q24H [place] Stop: 11/07/24 08:59 Last Admin: 10/13/24 08:46 Dose: Not Given Gabapentin (Gabapentin 100 Mg Cap) 100 mg PO BID [place] Stop: 11/07/24 08:59 Last Admin: 10/18/24 08:12 Dose: 100 mg Glucagon (Glucagon For Inj 1 Mg Vial) 1 mg SQ UD PRN; Protocol PRN Reason: Hypoglycemia Protocol Stop: 11/07/24 02:59 Glucose (Glucose 40% Gel 15 Gm Tube) 15 - 30 gm PO UD PRN; Protocol PRN Reason: Hypoglycemia Protocol Stop: 11/07/24 02:59 Glucose (Glucose 10 Tab/Tube) 4 - 8 tab PO UD PRN; Protocol PRN Reason: Hypoglycemia Protocol Stop: 11/07/24 02:59 Heparin Sodium (Porcine) (Heparin 100 Unit/Ml 5ml Flush) 5 ml FLUSH PRN PRN PRN Reason: Flush Stop: 11/07/24 03:03 Last Admin: 10/12/24 05:22 Dose: 5 ml Hydromorphone HCl (Hydromorphone Inj 1 Mg/Ml Syringe) 1 mg IV Q4H PRN PRN Reason: Breakthrough Pain Stop: 10/22/24 02:59 Last Admin: 10/13/24 19:31 Dose: 1 mg Promethazine HCl (Phenergan) 6.25 mg in 50.25 mls @ 201 mls/hr IV Q6H PRN PRN Reason: Nausea And Vomiting Stop: 11/08/24 08:11 Last Infusion: 10/11/24 08:20 Dose: Infused Vancomycin HCl 750 mg/ Sodium (Chloride) 265 mls @ 200 mls/hr IV Q8H [place] Stop: 10/30/24 21:59 Last Infusion: 10/18/24 07:19 Dose: Infused Insulin Aspart (Insulin Aspart Per Unit Charge) 0 units SC ACHS [place] Stop: 11/13/24 05:59 Last Admin: 10/17/24 21:36 Dose: Not Given Lactobacillus Acidophilus (Advanced Probiotic 625 Mg Capsule) 1,250 mg PO DAILY [facility] Stop: 11/09/24 08:59 Last Admin: 10/18/24 08:12 Dose: 1,250 mg Levofloxacin (Levofloxacin 500 Mg Tab) 500 mg PO QAM [place]; Protocol Stop: 11/07/24 08:59 Last Admin: 10/14/24 12:57 Dose: 500 mg Lidocaine (Lidocaine 5% 1 Patch) 1 patch TD QAM [place] Stop: 11/07/24 08:59 Last Admin: 10/18/24 08:12 Dose: Not Given Loperamide HCl (Loperamide Hcl 2 Mg Cap) 2 mg PO UD PRN PRN Reason: diarrhea Stop: 11/13/24 18:36 Lorazepam (Lorazepam 0.5 Mg Tab) 0.5 mg PO DAILY PRN PRN Reason: Insomnia Stop: 11/07/24 02:59 Last Admin: 10/17/24 21:48 Dose: 0.5 mg Melatonin (Melatonin 3 Mg Tab) 3 mg PO HS PRN PRN Reason: Insomnia Stop: 11/07/24 03:07 Last Admin: 10/17/24 21:48 Dose: 3 mg Miscellaneous (Carbohydrates For Hypoglycemia ) 15 - 30 gm PO UD PRN PRN Reason: Hypoglycemia Protocol Stop: 11/07/24 02:59 Miscellaneous (Remove Lidoderm Patch) 1 each N/A DAILY@2100 [facility] Stop: 11/07/24 20:59 Last Admin: 10/17/24 21:07 Dose: Not Given Miscellaneous Information (Vancomycin Consult Active) 1 each N/A UD PRN PRN Reason: Consult Stop: 11/15/24 13:04 Oxycodone HCl (Oxycodone Hcl Ir 5 Mg Tab (Immediate Release)) 5 mg PO Q6H PRN PRN Reason: pain 5-8 Stop: 10/22/24 02:59 Last Admin: 10/18/24 01:19 Dose: 5 mg Oxycodone HCl (Oxycodone Hcl Ir 5 Mg Tab (Immediate Release)) 10 mg PO Q6H PRN PRN Reason: pain 9-10 Stop: 10/22/24 02:59 Last Admin: 10/17/24 14:26 Dose: 10 mg Polyethylene Glycol (Polyethylene (Miralax) 17 Gm Pack) 17 gm PO DAILY PRN PRN Reason: Constipation Stop: 11/07/24 02:59 Polyethylene Glycol (Polyethylene (Miralax) 17 Gm Pack) 17 gm PO BID [place] Stop: 11/07/24 08:59 Last Admin: 10/18/24 08:12 Dose: Not Given Potassium Chloride (Potassium Chloride 10 Meq Tabcr) 40 meq PO BID [place] Stop: 11/11/24 08:59 Last Admin: 10/18/24 08:13 Dose: 40 meq Potassium Phosphate (Potassium Phos 3 Mmol/1 Ml Infusion) 6 mmol IV NOW STA Stop: 10/18/24 08:12 Senna/Docusate Sodium (Docusate Sodium/Senna 50/8.6mg Tab) 1 tab PO BID [place] Stop: 11/07/24 08:59 Last Admin: 10/18/24 08:12 Dose: Not Given Voriconazole (Voriconazole 200 Mg Tablet) 200 mg PO Q12 [place] Stop: 11/07/24 08:59 Last Admin: 10/18/24 08:13 Dose: 200 mg
[2024-10-18] MEDS: POTASSIUM PHOSPHATE 6 MMOL in SODIUM CHLORIDE 0.9% 100 ML IV ONE (08:45)
[2024-10-19 05:57] LABS: Hematocrit (blood only) 33.1 % (37.0-47.0); Hemoglobin 10.6 g/dl (12.0-16.0); Mean Corpuscular Hemoglobin 31.6 pg (25.0-34.0); Mean Corpuscular Volume 98.8 fL (80.0-100.0); Platelet Count 277 K/uL (130-400); RDW Standard Deviation 56.7 fL (36.4-46.3); Red Blood Count 3.35 M/uL (4.20-5.40); White Blood Count 5.89 K/ul (4.8-10.8)
[2024-10-19 06:19] LABS: Anion Gap 8.0 (3-11); Blood Urea Nitrogen 10.0 mg/dl (6-23); Calcium 9.3 mg/dl (8.6-10.3); Carbon Dioxide 25.0 mmol/L (21-32); Chloride 106.0 mmol/L (98-107); Creatinine Clr Calc Pharmacy 102.6 ml/min; Glucose 105.0 mg/dl (70-99(Fasting)); Magnesium 1.8 mg/dl (1.7-2.4); Potassium 3.4 mmol/L (3.5-5.1); Sodium 139.0 mmol/L (136-145)
[2024-10-19] MEDS: VANCOMYCIN LEVEL ONE (06:27)
--- NOTE | 2024-10-19 07:56 | Hospitalist Progress Note ---
Date of Service October 19, 2024 Assessment & Plan (1) Severe back pain: Plan: 79 yo F with type 2 diabetes, dyslipidemia, paroxysmal SVT, hypertension, GERD, osteoarthritis of both knees, AML, generalized anxiety disorder, spinal stenosis of lumbar region, persistent insomnia who was recently in the hospital for lumbar spine compression fracture and discharged to rehab comes back with severe back pain. Patient states at rehab she was having a lot of constipation and stool softeners were given since then she had a lot of back pain. The stool softeners relieved her constipation but the back pain got worse. She could not tolerate the back pain this reason she was came to the hospital today. She thinks she might had fever. Denies any bowel incontinence. She says sometimes she gets bladder incontinence but it is nothing new. Pain is not shooting down the legs. Ambulating with a walker but now the pain got worse. Denies any chest pain. No shortness of breath. No cough. No headache. No runny nose or sore throat. No difficulty swallowing. Last couple of days appetite is down. Last chemo was in August. She was supposed to get chemo on 09/29/2024 but because she is rehab it was held. Currently while resting seems comfortable and hemod ynamics are okay. Severe back pain L1 and L3 compression fractures Staph epidermidis bacteremia Bilateral iliopsoas muscle fluid collections, likely infected Coming from rehab CT scan done in the ER shows same L1 L3 compression fractures patient's back pain not responding with pain management Discussed with Dr. Bergman (orthospine) In light of possible bacteremia, recommend repeat MRI of the spine Continue pain control, PT OT 10/12 MRI Lumbar spine reviewed: + fluid collections, edema iliopsoas, bilateral, likely infected Discussed with Dr. Bergman, agree with possible infected fluid collections around the lumbar spine Broaden antibiotic coverage with Zosyn in addition to daptomycin 10/[address] Bergman, recommend IR drainage of fluid collection in the lumbar spine Discussed with SARAH Rodriguez, IR drainage performed 10/16 Fluid drainage culture: positive for Staph epi - contacted ID - recommend to switch to vancomycin dose for poss. meningitis - discussed w/ pharmacy. dapto stopped, also zosyn to be stopped Dr. Bergman also updated - discussed with - no surgical intervention recommended further recommendations as per Dr. Bergman and ID Per ID Please continue on IV vancomycin to be adjusted based on vancomycin trough/AUC. She will require at least 6 to 8 weeks of IV antibiotics. I would also recommend repeating the MRI of the lumbar spine towards the end of treatment course. We would appreciate further assessment by the spine surgery for possible surgical intervention. Called lab and tried to get sensitivities from cultx obtained - pending Staph epidermidis bacteremia Initial blood culture (10/07): Staph epidermidis 1 out of 2 bottles Repeat blood cultures (10/10): Staph epidermidis 1 out of 2 bottles Echocardiogram: No mention of possible vegetation ID service recommends removal of indwelling port, port removed on 10/14 third set of blood cultures (10/15): pending Lower abdominal Discomfort UA: Negative for UTI KUB: No obstruction, minimal fecal load -- resolved Hypokalemia replace and monitor AML undergoing chemotherapy History of pancytopenia WBC 6.5. Hemoglobin 10.1. Platelets 340 Currently undergoing monthly chemotherapy with decitabine/venetoclax Last chemo was in August. This month chemo was delayed because patient was in rehab Has appointment with Dr. Gaines on 10/29/2024 per last admission Continue suppressive antibiotics Levaquin, voriconazole and acyclovir 10/14 CBC stable Discussed with Dr. Gaines, patient is in remission from AML according to her she agrees with a port removal discussion of further chemotherapy with patient and family after patient recovers from this episode Hypertension On amlodipine. Last admit amlodipine was held for soft blood pressures Continue amlodipine for now. On furosemide with potassium supplements -- hold Lasix for now as patient is on the dry side Hyperlipidemia On statin Anxiety/depression On citalopram and buspirone Diabetes Diet controlled current HbA1c levels: 6.4 Sliding scale for now Recent A port placement supposed to followup with general surgery for evaluation Gen Surg consulted -- (+) bacteremia -- ID service consulted, recommend removal of port A-port removed 10/14/2024 DVT prophylaxis Lovenox Disposition Med Surg Full Code Disposition pending lives at home PT/OT eval Admission and Anticipated Discharge Date Admission Date: October 08, 2024 Subjective Pt seen in follow up Hx of AML, back pain Found to be bacteremic A-port removed by gen. surgery (10/14). Previously also fluid removal by IR (psoas muscle abscess) - cultx posit. for Staph epi had loose stool - c. diff obtained was negative Discussed posit. cultx from IR w/ ID - switched to vancomycin - dose for poss. meningitis - discussed w/ pharmacy. Discussed w/ ortho-spine (Dr. Bergman - no surg. intervention recommended) Previously also discussed w/ Dr. Gaines - reports AML in remission, pt's daughter worried about po inatke (ongoing for some time) Pt seen in the morning and looking tired, also somewhat confused, reported bad night and that nursing staff keeps taking her to some room at night. Discussed w/ nursing and aid and encouraged po intake and hydration. Pt then seen again in the afternoon with her daughter Nadya present at the bedside and pt feeling much improved and clear in her mind, alert and oriented and participating in conversation. Continues to have back pain, feels it's managable but she is not moving much.. denies fever, chills, chest pain, shortness of breath. No abd. pain. Review of Systems Review of Systems: All systems reviewed & are unremarkable except as noted in Subjective Physical Exam Physical Exam: General- WD/WN elderly F in NAD Eyes- anicteric Neck- no JVD Lungs- clear breath sounds anteriorly, no rales/wheezes Surgical site wound left upper chest wall: clean, dry, no discharge, no erythema Heart- normal rate, regular rhythm; no murmurs Abdomen- normal bowel sounds, nondistended, soft, nontender Extremities- no pretibial edema, no calf tenderness, moves extremities Neuro- awake, alert, answers appropriately, speech fluent, no facial asymmetry, moves extremities Skin- warm & dry Results & Data Results & Data Vital Signs (Past 12 Hours) Vital Signs Temp Pulse Resp BP BP Pulse Ox O2 Del Method 10/19/24 07:27 36.6 C 97 H 16 131/70 98 Room Air 10/19/24 07:10 Room Air 10/18/24 23:01 36.7 C 100 H 16 130/75 93 Room Air 10/18/24 21:45 Room Air Laboratory Results 10/19/24 10/19/24 10/18/24 Range/Units 07:32 05:41 20:25 WBC 5.89 (4.8-10.8) K/ul RBC 3.35 L (4.20-5.40) M/uL Hgb 10.6 L (12.0-16.0) g/dl Hct 33.1 L (37.0-47.0) % MCV 98.8 (80.0-100.0) fL MCH 31.6 (25.0-34.0) pg MCHC 32.0 (32.0-36.0) g/dL RDW Std Deviation 56.7 H (36.4-46.3) fL RDW Coeff of Patti 15.7 H (11.5-14.5) % Plt Count 277 (130-400) K/uL MPV 9.1 L (9.4-12.4) fL Sodium 139 (136-145) mmol/L Potassium 3.4 L (3.5-5.1) mmol/L Chloride 106 (98-107) mmol/L Carbon Dioxide 25 (21-32) mmol/L Anion Gap 8 (3-11) BUN 10 (6-23) mg/dl Creatinine 0.38 L (0.6-1.2) mg/dl Est Cr Clr Drug Dosing 102.6 ml/min eGFR 103.14 BUN/Creatinine Ratio 26.3 H (10-20) Glucose 105 H (70-99(Fasting)) mg/dl POC Glucose 100 H 137 H (70-99) mg/dl Calcium 9.3 (8.6-10.3) mg/dl Phosphorus 4.1 D (2.5-4.9) mg/dl Magnesium 1.8 (1.7-2.4) mg/dl Random Vancomycin 11.7 (10-20) mcg/ml 10/18/24 10/18/24 Range/Units 16:24 11:50 WBC (4.8-10.8) K/ul RBC (4.20-5.40) M/uL Hgb (12.0-16.0) g/dl Hct (37.0-47.0) % MCV (80.0-100.0) fL MCH (25.0-34.0) pg MCHC (32.0-36.0) g/dL RDW Std Deviation (36.4-46.3) fL RDW Coeff of Patti (11.5-14.5) % Plt Count (130-400) K/uL MPV (9.4-12.4) fL Sodium (136-145) mmol/L Potassium (3.5-5.1) mmol/L Chloride (98-107) mmol/L Carbon Dioxide (21-32) mmol/L Anion Gap (3-11) BUN (6-23) mg/dl Creatinine (0.6-1.2) mg/dl Est Cr Clr Drug Dosing ml/min eGFR BUN/Creatinine Ratio (10-20) Glucose (70-99(Fasting)) mg/dl POC Glucose 114 H 129 H (70-99) mg/dl Calcium (8.6-10.3) mg/dl Phosphorus (2.5-4.9) mg/dl Magnesium (1.7-2.4) mg/dl Random Vancomycin (10-20) mcg/ml Medications Administered Current Inpatient Medications Acetaminophen (Acetaminophen 325 Mg Tab) 650 mg PO Q4H PRN PRN Reason: pain/fever Stop: 11/07/24 02:59 Last Admin: 10/18/24 21:51 Dose: 650 mg Acyclovir (Acyclovir 400 Mg Tab) 400 mg PO BID [place] Stop: 11/07/24 08:59 Last Admin: 10/18/24 21:46 Dose: 400 mg Amlodipine Besylate (Amlodipine Besylate 5 Mg Tab) 5 mg PO QAM [place] Stop: 11/07/24 08:59 Last Admin: 10/18/24 08:11 Dose: 5 mg Atorvastatin Calcium (Atorvastatin 20 Mg Tab) 20 mg PO HS [place] Stop: 11/07/24 20:59 Last Admin: 10/10/24 21:08 Dose: 20 mg Buspirone HCl (Buspirone 5 Mg Tab) 5 mg PO AMHS [place] Stop: 11/07/24 08:59 Last Admin: 10/18/24 21:46 Dose: 5 mg Citalopram Hydrobromide (Citalopram 20 Mg Tab) 10 mg PO QAM [place] Stop: 11/07/24 08:59 Last Admin: 10/18/24 08:12 Dose: 10 mg Dextrose (Dextrose 50% 50 Ml Syringe) 25 - 50 ml IV UD PRN; Protocol PRN Reason: Hypoglycemia Protocol Stop: 11/07/24 02:59 Enoxaparin Sodium (Enoxaparin Inj 40 Mg/0.4 Ml Syr) 40 mg SQ Q24H [place] Stop: 11/07/24 08:59 Last Admin: 10/13/24 08:46 Dose: Not Given Gabapentin (Gabapentin 100 Mg Cap) 100 mg PO BID [facility] Stop: 11/07/24 08:59 Last Admin: 10/18/24 21:46 Dose: 100 mg Glucagon (Glucagon For Inj 1 Mg Vial) 1 mg SQ UD PRN; Protocol PRN Reason: Hypoglycemia Protocol Stop: 11/07/24 02:59 Glucose (Glucose 40% Gel 15 Gm Tube) 15 - 30 gm PO UD PRN; Protocol PRN Reason: Hypoglycemia Protocol Stop: 11/07/24 02:59 Glucose (Glucose 10 Tab/Tube) 4 - 8 tab PO UD PRN; Protocol PRN Reason: Hypoglycemia Protocol Stop: 11/07/24 02:59 Heparin Sodium (Porcine) (Heparin 100 Unit/Ml 5ml Flush) 5 ml FLUSH PRN PRN PRN Reason: Flush Stop: 11/07/24 03:03 Last Admin: 10/12/24 05:22 Dose: 5 ml Hydromorphone HCl (Hydromorphone Inj 1 Mg/Ml Syringe) 1 mg IV Q4H PRN PRN Reason: Breakthrough Pain Stop: 10/22/24 02:59 Last Admin: 10/13/24 19:31 Dose: 1 mg Promethazine HCl (Phenergan) 6.25 mg in 50.25 mls @ 201 mls/hr IV Q6H PRN PRN Reason: Nausea And Vomiting Stop: 11/08/24 08:11 Last Infusion: 10/11/24 08:20 Dose: Infused Vancomycin HCl 750 mg/ Sodium (Chloride) 265 mls @ 200 mls/hr IV Q8H [place] Stop: 10/30/24 21:59 Last Infusion: 10/19/24 07:55 Dose: Infused Insulin Aspart (Insulin Aspart Per Unit Charge) 0 units SC ACHS [facility] Stop: 11/13/24 05:59 Last Admin: 10/19/24 07:41 Dose: Not Given Lactobacillus Acidophilus (Advanced Probiotic 625 Mg Capsule) 1,250 mg PO DAILY [facility] Stop: 11/09/24 08:59 Last Admin: 10/18/24 08:12 Dose: 1,250 mg Levofloxacin (Levofloxacin 500 Mg Tab) 500 mg PO [facility]; Protocol Stop: 11/07/24 08:59 Last Admin: 10/14/24 12:57 Dose: 500 mg Lidocaine (Lidocaine 5% 1 Patch) 1 patch TD [facility] Stop: 11/07/24 08:59 Last Admin: 10/18/24 08:12 Dose: Not Given Loperamide HCl (Loperamide Hcl 2 Mg Cap) 2 mg PO UD PRN PRN Reason: diarrhea Stop: 11/13/24 18:36 Lorazepam (Lorazepam 0.5 Mg Tab) 0.5 mg PO DAILY PRN PRN Reason: Insomnia Stop: 11/07/24 02:59 Last Admin: 10/18/24 21:46 Dose: 0.5 mg Melatonin (Melatonin 3 Mg Tab) 3 mg PO HS PRN PRN Reason: Insomnia Stop: 11/07/24 03:07 Last Admin: 10/18/24 21:46 Dose: 3 mg Miscellaneous (Carbohydrates For Hypoglycemia ) 15 - 30 gm PO UD PRN PRN Reason: Hypoglycemia Protocol Stop: 11/07/24 02:59 Miscellaneous (Remove Lidoderm Patch) 1 each N/A DAILY@2100 [facility] Stop: 11/07/24 20:59 Last Admin: 10/18/24 22:29 Dose: Not Given Miscellaneous Information (Vancomycin Consult Active) 1 each N/A UD PRN PRN Reason: Consult Stop: 11/15/24 13:04 Oxycodone HCl (Oxycodone Hcl Ir 5 Mg Tab (Immediate Release)) 5 mg PO Q6H PRN PRN Reason: pain 5-8 Stop: 10/22/24 02:59 Last Admin: 10/18/24 21:51 Dose: 5 mg Oxycodone HCl (Oxycodone Hcl Ir 5 Mg Tab (Immediate Release)) 10 mg PO Q6H PRN PRN Reason: pain 9-10 Stop: 10/22/24 02:59 Last Admin: 10/18/24 10:10 Dose: 10 mg Polyethylene Glycol (Polyethylene (Miralax) 17 Gm Pack) 17 gm PO DAILY PRN PRN Reason: Constipation Stop: 11/07/24 02:59 Polyethylene Glycol (Polyethylene (Miralax) 17 Gm Pack) 17 gm PO BID [facility] Stop: 11/07/24 08:59 Last Admin: 10/18/24 21:21 Dose: Not Given Potassium Chloride (Potassium Chloride 10 Meq Tabcr) 40 meq PO BID [facility] Stop: 11/11/24 08:59 Last Admin: 10/17/24 21:51 Dose: 40 meq Senna/Docusate Sodium (Docusate Sodium/Senna 50/8.6mg Tab) 1 tab PO BID [place] Stop: 11/07/24 08:59 Last Admin: 10/18/24 21:42 Dose: Not Given Voriconazole (Voriconazole 200 Mg Tablet) 200 mg PO Q12 [place] Stop: 11/07/24 08:59 Last Admin: 10/18/24 21:46 Dose: 200 mg
--- NOTE | 2024-10-19 09:28 | Pharmacy Report ---
Pharmacy PK ABX Note - Date of Service October 19, 2024 - Assessment and Plan Assessment 10/19: * Day # 4 vancomycin for lumbar osteomyelitis, psoas muscle abscess and Staph epidermidis bacteremia. Trough level this AM, 11.7mcg/mL (~8h level drawn appropriately). 10/17 * Plan for 6-8 weeks of vancomycin. Random level today 11.6 mcg/mL suggests attainment of target AUC/ARNOLD * Will continue with current dose. Can get additional level at steady state 10/16: * The vancomycin was d/c and daptomycin was started on 10/11. Today the patient was changed back to vancomycin per ID recommendation as patient's condition is reportedly declining. IR drainage of fluid collection of lumbar spine done and cultured x 2 on 10/13. Both cultures grew S. epidermidis. Repeat blood cultures done 10/15 x 2 are no growth to date (preliminary). * Indwelling port removed as well on 10/14. * Will reload vancomycin and start a regimen targeting the upper end of the AUC goal. (ID recommends dosing for possible meningitis). * 10/10: 79 year old started on vancomycin due to positive blood culture result/Gm+ cocci -staph epi / BCID2 positive for mecA/C. Only 1/2 bottles positive, therefore potential for contaminant. Repeat blood cultures pending. Pt with history of recent lumbar spine fracture - admitted for worsening pain. Per notes, ortho recommending conservative measures. Also undergoing chemotherapy with last session in August. On suppressive abx with levaquin, voriconazole and acyclovir. Plan Vancomycin * Current regimen: vancomycin 750mg IV q8h * Trough this AM (8h level), 11.7mcg/mL. Current regimen predicted to achieve ssAUC 421mg/L.hr with a 65% probability. * Given severity of infection, will optimize dosing to 1gm IV q8h. Predicted to achieve ssAUC 561mg/L.hr. * Repeat level in 48-72h or sooner if clinically indicated. Pharmacy will continue to follow and will adjust dose/frequency as necessary. Thank you. Pharmacy has transitioned to AUC monitoring for vancomycin. AUC/ARNOLD is the preferred PK/PD target and is associated with decreased risk of nephrotoxicity compared to traditional trough targets.
[2024-10-19] MEDS: VANCOMYCIN HCL / NSS 1,000 MG/270 ML BAG IV SCH (13:20)
[2024-10-20 06:50] LABS: Hematocrit (blood only) 32.2 % (37.0-47.0); Hemoglobin 9.9 g/dl (12.0-16.0); Mean Corpuscular Hemoglobin 31.0 pg (25.0-34.0); Mean Corpuscular Volume 100.9 fL (80.0-100.0); Platelet Count 277 K/uL (130-400); RDW Standard Deviation 59.0 fL (36.4-46.3); Red Blood Count 3.19 M/uL (4.20-5.40); White Blood Count 5.78 K/ul (4.8-10.8)
[2024-10-20 07:20] LABS: Anion Gap 6.0 (3-11); Blood Urea Nitrogen 15.0 mg/dl (6-23); Calcium 9.3 mg/dl (8.6-10.3); Carbon Dioxide 27.0 mmol/L (21-32); Chloride 109.0 mmol/L (98-107); Creatinine Clr Calc Pharmacy 97.4 ml/min; Glucose 97.0 mg/dl (70-99(Fasting)); Magnesium 2.0 mg/dl (1.7-2.4); Potassium 4.5 mmol/L (3.5-5.1); Sodium 142.0 mmol/L (136-145)
[2024-10-20] MEDS: POLYETHYLENE (MIRALAX) 17 GM PACK PO SCH (07:52)
--- NOTE | 2024-10-20 08:39 | Hospitalist Progress Note ---
Date of Service October 20, 2024 Assessment & Plan (1) Severe back pain: Plan: 79 yo F with type 2 diabetes, dyslipidemia, paroxysmal SVT, hypertension, GERD, osteoarthritis of both knees, AML, generalized anxiety disorder, spinal stenosis of lumbar region, persistent insomnia who was recently in the hospital for lumbar spine compression fracture and discharged to rehab comes back with severe back pain. Patient states at rehab she was having a lot of constipation and stool softeners were given since then she had a lot of back pain. The stool softeners relieved her constipation but the back pain got worse. She could not tolerate the back pain this reason she was came to the hospital today. She thinks she might had fever. Denies any bowel incontinence. She says sometimes she gets bladder incontinence but it is nothing new. Pain is not shooting down the legs. Ambulating with a walker but now the pain got worse. Denies any chest pain. No shortness of breath. No cough. No headache. No runny nose or sore throat. No difficulty swallowing. Last couple of days appetite is down. Last chemo was in August. She was supposed to get chemo on 09/29/2024 but because she is rehab it was held. Currently while resting seems comfortable and hem odynamics are okay. Severe back pain L1 and L3 compression fractures Staph epidermidis bacteremia Bilateral iliopsoas muscle fluid collections, likely infected Coming from rehab CT scan done in the ER shows same L1 L3 compression fractures patient's back pain not responding with pain management Discussed with Dr. Bergman (orthospine) In light of possible bacteremia, recommend repeat MRI of the spine Continue pain control, PT OT 10/12 MRI Lumbar spine reviewed: + fluid collections, edema iliopsoas, bilateral, likely infected Discussed with Dr. Bergman, agree with possible infected fluid collections around the lumbar spine Broaden antibiotic coverage with Zosyn in addition to daptomycin 10/[address] Bergman, recommend IR drainage of fluid collection in the lumbar spine Discussed with SARAH Rodriguez, IR drainage performed 10/16 Fluid drainage culture: positive for Staph epi - contacted ID - recommend to switch to vancomycin dose for poss. meningitis - discussed w/ pharmacy. dapto stopped, also zosyn to be stopped Dr. Bergman also updated - discussed with - no surgical intervention recommended further recommendations as per Dr. Bergman and ID Per ID Please continue on IV vancomycin to be adjusted based on vancomycin trough/AUC. She will require at least 6 to 8 weeks of IV antibiotics. I would also recommend repeating the MRI of the lumbar spine towards the end of treatment course. We would appreciate further assessment by the spine surgery for possible surgical intervention. Called lab to get sensitivities from cultx obtained - sensitivities are back - will further discus w/ ID Staph epidermidis bacteremia Initial blood culture (10/07): Staph epidermidis 1 out of 2 bottles Repeat blood cultures (10/10): Staph epidermidis 1 out of 2 bottles Echocardiogram: No mention of possible vegetation ID service recommends removal of indwelling port, port removed on 10/14 third set of blood cultures (10/15): pending Lower abdominal Discomfort UA: Negative for UTI KUB: No obstruction, minimal fecal load -- resolved Hypokalemia replace and monitor AML undergoing chemotherapy History of pancytopenia WBC 6.5. Hemoglobin 10.1. Platelets 340 Currently undergoing monthly chemotherapy with decitabine/venetoclax Last chemo was in August. This month chemo was delayed because patient was in rehab Has appointment with Dr. Gaines on 10/29/2024 per last admission Continue suppressive antibiotics Levaquin, voriconazole and acyclovir 10/14 CBC stable Discussed with Dr. Gaines, patient is in remission from AML according to her she agrees with a port removal discussion of further chemotherapy with patient and family after patient recovers from this episode Hypertension On amlodipine. Last admit amlodipine was held for soft blood pressures Continue amlodipine for now. On furosemide with potassium supplements -- hold Lasix for now as patient is on the dry side Hyperlipidemia On statin Anxiety/depression On citalopram and buspirone Diabetes Diet controlled current HbA1c levels: 6.4 Sliding scale for now Recent A port placement supposed to followup with general surgery for evaluation Gen Surg consulted -- (+) bacteremia -- ID service consulted, recommend removal of port A-port removed 10/14/2024 DVT prophylaxis Lovenox Disposition Med Surg Full Code Disposition pending lives at home PT/OT eval Admission and Anticipated Discharge Date Admission Date: October 08, 2024 Subjective Pt seen in follow up Hx of AML, back pain Found to be bacteremic A-port removed by gen. surgery (10/14). Previously also fluid removal by IR (psoas muscle abscess) - cultx posit. for Staph epi had loose stool - c. diff obtained was negative Discussed posit. cultx from IR w/ ID - switched to vancomycin - dose for poss. meningitis - discussed w/ pharmacy. Discussed w/ ortho-spine (Dr. Bergman - no surg. intervention recommended) Previously also discussed w/ Dr. Gaines - reports AML in remission, pt's daughter worried about po inatke (ongoing for some time) Today pt found sitting in chair, awake, alert, eating, overall reports feeling well but continues to have back pain and so she is not ambulating much. denies fever, chills, chest pain, shortness of breath. No abd. pain. Review of Systems Review of Systems: All systems reviewed & are unremarkable except as noted in Subjective Physical Exam Physical Exam: General- WD/WN elderly F in NAD Eyes- anicteric Neck- no JVD Lungs- clear breath sounds anteriorly, no rales/wheezes Surgical site wound left upper chest wall: clean, dry, no discharge, no erythema Heart- normal rate, regular rhythm; no murmurs Abdomen- normal bowel sounds, nondistended, soft, nontender Extremities- no pretibial edema, no calf tenderness, moves extremities Neuro- awake, alert, answers appropriately, speech fluent, no facial asymmetry, moves extremities Skin- warm & dry Results & Data Results & Data Vital Signs (Past 12 Hours) Vital Signs Temp Pulse Resp BP BP Pulse Ox O2 Del Method 10/20/24 07:43 36.4 C L 81 18 125/72 97 Room Air 10/19/24 23:03 36.7 C 106 H 18 125/73 94 Room Air Laboratory Results 10/20/24 10/20/24 10/19/24 Range/Units 07:42 05:43 20:40 WBC 5.78 (4.8-10.8) K/ul RBC 3.19 L (4.20-5.40) M/uL Hgb 9.9 L (12.0-16.0) g/dl Hct 32.2 L (37.0-47.0) % MCV 100.9 H (80.0-100.0) fL MCH 31.0 (25.0-34.0) pg MCHC 30.7 L (32.0-36.0) g/dL RDW Std Deviation 59.0 H (36.4-46.3) fL RDW Coeff of Patti 15.9 H (11.5-14.5) % Plt Count 277 (130-400) K/uL MPV 9.2 L (9.4-12.4) fL Sodium 142 (136-145) mmol/L Potassium 4.5 D (3.5-5.1) mmol/L Chloride 109 H (98-107) mmol/L Carbon Dioxide 27 (21-32) mmol/L Anion Gap 6 (3-11) BUN 15 (6-23) mg/dl Creatinine 0.40 L (0.6-1.2) mg/dl Est Cr Clr Drug Dosing 97.4 ml/min eGFR 101.87 BUN/Creatinine Ratio 37.5 H (10-20) Glucose 97 (70-99(Fasting)) mg/dl POC Glucose 109 H 110 H (70-99) mg/dl Calcium 9.3 (8.6-10.3) mg/dl Phosphorus 3.7 (2.5-4.9) mg/dl Magnesium 2.0 (1.7-2.4) mg/dl 10/19/24 10/19/24 Range/Units 16:31 11:31 WBC (4.8-10.8) K/ul RBC (4.20-5.40) M/uL Hgb (12.0-16.0) g/dl Hct (37.0-47.0) % MCV (80.0-100.0) fL MCH (25.0-34.0) pg MCHC (32.0-36.0) g/dL RDW Std Deviation (36.4-46.3) fL RDW Coeff of Patti (11.5-14.5) % Plt Count (130-400) K/uL MPV (9.4-12.4) fL Sodium (136-145) mmol/L Potassium (3.5-5.1) mmol/L Chloride (98-107) mmol/L Carbon Dioxide (21-32) mmol/L Anion Gap (3-11) BUN (6-23) mg/dl Creatinine (0.6-1.2) mg/dl Est Cr Clr Drug Dosing ml/min eGFR BUN/Creatinine Ratio (10-20) Glucose (70-99(Fasting)) mg/dl POC Glucose 134 H 112 H (70-99) mg/dl Calcium (8.6-10.3) mg/dl Phosphorus (2.5-4.9) mg/dl Magnesium (1.7-2.4) mg/dl Medications Administered Current Inpatient Medications Acetaminophen (Acetaminophen 325 Mg Tab) 650 mg PO Q4H PRN PRN Reason: pain/fever Stop: 11/07/24 02:59 Last Admin: 10/20/24 08:01 Dose: 650 mg Acyclovir (Acyclovir 400 Mg Tab) 400 mg PO BID [place] Stop: 11/07/24 08:59 Last Admin: 10/20/24 07:53 Dose: 400 mg Amlodipine Besylate (Amlodipine Besylate 5 Mg Tab) 5 mg PO QAM [place] Stop: 11/07/24 08:59 Last Admin: 10/20/24 07:53 Dose: 5 mg Atorvastatin Calcium (Atorvastatin 20 Mg Tab) 20 mg PO HS [place] Stop: 11/07/24 20:59 Last Admin: 10/10/24 21:08 Dose: 20 mg Buspirone HCl (Buspirone 5 Mg Tab) 5 mg PO AMHS [facility] Stop: 11/07/24 08:59 Last Admin: 10/20/24 07:53 Dose: 5 mg Citalopram Hydrobromide (Citalopram 20 Mg Tab) 10 mg PO QAM [facility] Stop: 11/07/24 08:59 Last Admin: 10/20/24 07:53 Dose: 10 mg Dextrose (Dextrose 50% 50 Ml Syringe) 25 - 50 ml IV UD PRN; Protocol PRN Reason: Hypoglycemia Protocol Stop: 11/07/24 02:59 Enoxaparin Sodium (Enoxaparin Inj 40 Mg/0.4 Ml Syr) 40 mg SQ Q24H [place] Stop: 11/07/24 08:59 Last Admin: 10/13/24 08:46 Dose: Not Given Gabapentin (Gabapentin 100 Mg Cap) 100 mg PO BID [place] Stop: 11/07/24 08:59 Last Admin: 10/20/24 07:53 Dose: 100 mg Glucagon (Glucagon For Inj 1 Mg Vial) 1 mg SQ UD PRN; Protocol PRN Reason: Hypoglycemia Protocol Stop: 11/07/24 02:59 Glucose (Glucose 40% Gel 15 Gm Tube) 15 - 30 gm PO UD PRN; Protocol PRN Reason: Hypoglycemia Protocol Stop: 11/07/24 02:59 Glucose (Glucose 10 Tab/Tube) 4 - 8 tab PO UD PRN; Protocol PRN Reason: Hypoglycemia Protocol Stop: 11/07/24 02:59 Heparin Sodium (Porcine) (Heparin 100 Unit/Ml 5ml Flush) 5 ml FLUSH PRN PRN PRN Reason: Flush Stop: 11/07/24 03:03 Last Admin: 10/12/24 05:22 Dose: 5 ml Hydromorphone HCl (Hydromorphone Inj 1 Mg/Ml Syringe) 1 mg IV Q4H PRN PRN Reason: Breakthrough Pain Stop: 10/22/24 02:59 Last Admin: 10/13/24 19:31 Dose: 1 mg Promethazine HCl (Phenergan) 6.25 mg in 50.25 mls @ 201 mls/hr IV Q6H PRN PRN Reason: Nausea And Vomiting Stop: 11/08/24 08:11 Last Infusion: 10/11/24 08:20 Dose: Infused Vancomycin HCl (Vancomycin Hcl) 1,000 mg in 270 mls @ 200 mls/hr IV Q8H [place] Stop: 10/30/24 21:59 Last Infusion: 10/20/24 07:32 Dose: Infused Insulin Aspart (Insulin Aspart Per Unit Charge) 0 units SC ACHS [place] Stop: 11/13/24 05:59 Last Admin: 10/20/24 07:46 Dose: Not Given Lactobacillus Acidophilus (Advanced Probiotic 625 Mg Capsule) 1,250 mg PO DAILY [place] Stop: 11/09/24 08:59 Last Admin: 10/20/24 07:53 Dose: 1,250 mg Levofloxacin (Levofloxacin 500 Mg Tab) 500 mg PO QAM [place]; Protocol Stop: 11/07/24 08:59 Last Admin: 10/14/24 12:57 Dose: 500 mg Lidocaine (Lidocaine 5% 1 Patch) 1 patch TD QAM [facility] Stop: 11/07/24 08:59 Last Admin: 10/20/24 08:00 Dose: 1 patch Loperamide HCl (Loperamide Hcl 2 Mg Cap) 2 mg PO UD PRN PRN Reason: diarrhea Stop: 11/13/24 18:36 Lorazepam (Lorazepam 0.5 Mg Tab) 0.5 mg PO DAILY PRN PRN Reason: Insomnia Stop: 11/07/24 02:59 Last Admin: 10/19/24 21:58 Dose: 0.5 mg Melatonin (Melatonin 3 Mg Tab) 3 mg PO HS PRN PRN Reason: Insomnia Stop: 11/07/24 03:07 Last Admin: 10/19/24 21:58 Dose: 3 mg Miscellaneous (Carbohydrates For Hypoglycemia ) 15 - 30 gm PO UD PRN PRN Reason: Hypoglycemia Protocol Stop: 11/07/24 02:59 Miscellaneous (Remove Lidoderm Patch) 1 each N/A DAILY@2100 [facility] Stop: 11/07/24 20:59 Last Admin: 10/19/24 21:58 Dose: 1 each Miscellaneous Information (Vancomycin Consult Active) 1 each N/A UD PRN PRN Reason: Consult Stop: 11/15/24 13:04 Oxycodone HCl (Oxycodone Hcl Ir 5 Mg Tab (Immediate Release)) 5 mg PO Q6H PRN PRN Reason: pain 5-8 Stop: 10/22/24 02:59 Last Admin: 10/19/24 21:59 Dose: 5 mg Oxycodone HCl (Oxycodone Hcl Ir 5 Mg Tab (Immediate Release)) 10 mg PO Q6H PRN PRN Reason: pain 9-10 Stop: 10/22/24 02:59 Last Admin: 10/18/24 10:10 Dose: 10 mg Polyethylene Glycol (Polyethylene (Miralax) 17 Gm Pack) 17 gm PO DAILY PRN PRN Reason: Constipation Stop: 11/07/24 02:59 Polyethylene Glycol (Polyethylene (Miralax) 17 Gm Pack) 17 gm PO QAM [facility] Stop: 11/19/24 08:59 Last Admin: 10/20/24 07:52 Dose: 17 gm Potassium Chloride (Potassium Chloride 10 Meq Tabcr) 40 meq PO BID [facility] Stop: 11/11/24 08:59 Last Admin: 10/20/24 07:52 Dose: 40 meq Senna/Docusate Sodium (Docusate Sodium/Senna 50/8.6mg Tab) 1 tab PO BID [facility] Stop: 11/07/24 08:59 Last Admin: 10/20/24 07:52 Dose: 1 tab Voriconazole (Voriconazole 200 Mg Tablet) 200 mg PO Q12 [facility] Stop: 11/07/24 08:59 Last Admin: 10/20/24 07:59 Dose: 200 mg
[2024-10-21 06:15] LABS: Hematocrit (blood only) 30.0 % (37.0-47.0); Hemoglobin 9.5 g/dl (12.0-16.0); Mean Corpuscular Hemoglobin 31.8 pg (25.0-34.0); Mean Corpuscular Volume 100.3 fL (80.0-100.0); Platelet Count 261 K/uL (130-400); RDW Standard Deviation 57.9 fL (36.4-46.3); Red Blood Count 2.99 M/uL (4.20-5.40); White Blood Count 5.87 K/ul (4.8-10.8)
[2024-10-21 06:33] LABS: Anion Gap 6.0 (3-11); Blood Urea Nitrogen 12.0 mg/dl (6-23); Calcium 9.3 mg/dl (8.6-10.3); Carbon Dioxide 27.0 mmol/L (21-32); Chloride 107.0 mmol/L (98-107); Creatinine Clr Calc Pharmacy 88.6 ml/min; Glucose 100.0 mg/dl (70-99(Fasting)); Magnesium 1.9 mg/dl (1.7-2.4); Potassium 4.5 mmol/L (3.5-5.1); Sodium 140.0 mmol/L (136-145)
--- NOTE | 2024-10-21 10:33 | Hospitalist Progress Note ---
Date of Service October 21, 2024 Assessment & Plan (1) Severe back pain: Plan: 79 yo F with type 2 diabetes, dyslipidemia, paroxysmal SVT, hypertension, GERD, osteoarthritis of both knees, AML, generalized anxiety disorder, spinal stenosis of lumbar region, persistent insomnia who was recently in the hospital for lumbar spine compression fracture and discharged to rehab comes back with severe back pain. Patient states at rehab she was having a lot of constipation and stool softeners were given since then she had a lot of back pain. The stool softeners relieved her constipation but the back pain got worse. She could not tolerate the back pain this reason she was came to the hospital today. She thinks she might had fever. Denies any bowel incontinence. She says sometimes she gets bladder incontinence but it is nothing new. Pain is not shooting down the legs. Ambulating with a walker but now the pain got worse. Denies any chest pain. No shortness of breath. No cough. No headache. No runny nose or sore throat. No difficulty swallowing. Last couple of days appetite is down. Last chemo was in August. She was supposed to get chemo on 09/29/2024 but because she is rehab it was held. Currently while resting seems comfortable and hem odynamics are okay. Severe back pain L1 and L3 compression fractures Staph epidermidis bacteremia Bilateral iliopsoas muscle fluid collections, likely infected Coming from rehab CT scan done in the ER shows same L1 L3 compression fractures patient's back pain not responding with pain management Discussed with Dr. Bergman (orthospine) In light of possible bacteremia, recommend repeat MRI of the spine Continue pain control, PT OT 10/12 MRI Lumbar spine reviewed: + fluid collections, edema iliopsoas, bilateral, likely infected Discussed with Dr. Bergman, agree with possible infected fluid collections around the lumbar spine Broaden antibiotic coverage with Zosyn in addition to daptomycin 10/[address] Bergman, recommend IR drainage of fluid collection in the lumbar spine Discussed with SARAH Rodriguez, IR drainage performed 10/16 Fluid drainage culture: positive for Staph epi - contacted ID - recommend to switch to vancomycin dose for poss. meningitis - discussed w/ pharmacy. dapto stopped, also zosyn to be stopped Dr. Bergman also updated - discussed with - no surgical intervention recommended further recommendations as per Dr. Bergman and ID Per ID Please continue on IV vancomycin to be adjusted based on vancomycin trough/AUC. She will require at least 6 to 8 weeks of IV antibiotics. I would also recommend repeating the MRI of the lumbar spine towards the end of treatment course. We would appreciate further assessment by the spine surgery for possible surgical intervention. Called lab to get sensitivities from cultx obtained - sensitivities are back -> contacted ID - they plan to leave an updated note. Also discussed PICC line with ID and with the pt. Staph epidermidis bacteremia Initial blood culture (10/07): Staph epidermidis 1 out of 2 bottles Repeat blood cultures (10/10): Staph epidermidis 1 out of 2 bottles Echocardiogram: No mention of possible vegetation ID service recommends removal of indwelling port, port removed on 10/14 third set of blood cultures (10/15): NEGATIVE Lower abdominal Discomfort UA: Negative for UTI KUB: No obstruction, minimal fecal load -- resolved Hypokalemia replace and monitor AML undergoing chemotherapy History of pancytopenia WBC 6.5. Hemoglobin 10.1. Platelets 340 Currently undergoing monthly chemotherapy with decitabine/venetoclax Last chemo was in August. This month chemo was delayed because patient was in rehab Has appointment with Dr. Gaines on 10/29/2024 per last admission Continue suppressive antibiotics Levaquin, voriconazole and acyclovir 10/14 CBC stable Discussed with Dr. Gaines, patient is in remission from AML according to her she agrees with a port removal discussion of further chemotherapy with patient and family after patient recovers from this episode Hypertension On amlodipine. Last admit amlodipine was held for soft blood pressures Continue amlodipine for now. On furosemide with potassium supplements -- hold Lasix for now as patient is on the dry side Hyperlipidemia On statin Anxiety/depression On citalopram and buspirone Diabetes Diet controlled current HbA1c levels: 6.4 Sliding scale for now Recent A port placement supposed to followup with general surgery for evaluation Gen Surg consulted -- (+) bacteremia -- ID service consulted, recommend removal of port A-port removed 10/14/2024 DVT prophylaxis Lovenox Disposition Med Surg Full Code Disposition pending lives at home PT/OT eval Admission and Anticipated Discharge Date Admission Date: October 08, 2024 Subjective Pt seen in follow up Hx of AML, back pain Found to be bacteremic A-port removed by gen. surgery (10/14). Previously also fluid removal by IR (psoas muscle abscess) - cultx posit. for Staph epi had loose stool - c. diff obtained was negative Discussed posit. cultx from IR w/ ID - switched to vancomycin. Discussed w/ ortho-spine (Dr. Bergman - no surg. intervention recommended) Previously also discussed w/ Dr. Gaines - reports AML in remission, pt's daughter worried about po inatke (ongoing for some time) Today pt found awake, alert, answers appropriately, continues to have some back pain and so she is not ambulating much. denies fever, chills, chest pain, shortness of breath. No abd. pain. Discussed w/ ID - pt will need PICC line. Brought consent to the pt and discussed with the pt. Review of Systems Review of Systems: All systems reviewed & are unremarkable except as noted in Subjective Physical Exam Physical Exam: General- WD/WN elderly F in NAD Eyes- anicteric Neck- no JVD Lungs- clear breath sounds anteriorly, no rales/wheezes Surgical site wound left upper chest wall: clean, dry, no discharge, no erythema Heart- normal rate, regular rhythm; no murmurs Abdomen- normal bowel sounds, nondistended, soft, nontender Extremities- no pretibial edema, no calf tenderness, moves extremities Neuro- awake, alert, answers appropriately, speech fluent, no facial asymmetry, moves extremities Skin- warm & dry Results & Data Results & Data Vital Signs (Past 12 Hours) Vital Signs Temp Pulse Resp BP Pulse Ox O2 Del Method 10/21/24 07:50 Room Air 10/21/24 07:05 36.8 C 96 H 18 118/72 92 Room Air 10/20/24 22:49 36.9 C 91 H 16 115/74 94 Room Air Laboratory Results 10/21/24 10/21/24 10/20/24 Range/Units 07:28 05:29 20:30 WBC 5.87 (4.8-10.8) K/ul RBC 2.99 L (4.20-5.40) M/uL Hgb 9.5 L (12.0-16.0) g/dl Hct 30.0 L (37.0-47.0) % MCV 100.3 H (80.0-100.0) fL MCH 31.8 (25.0-34.0) pg MCHC 31.7 L (32.0-36.0) g/dL RDW Std Deviation 57.9 H (36.4-46.3) fL RDW Coeff of Patti 15.8 H (11.5-14.5) % Plt Count 261 (130-400) K/uL MPV 9.1 L (9.4-12.4) fL Sodium 140 (136-145) mmol/L Potassium 4.5 (3.5-5.1) mmol/L Chloride 107 (98-107) mmol/L Carbon Dioxide 27 (21-32) mmol/L Anion Gap 6 (3-11) BUN 12 (6-23) mg/dl Creatinine 0.44 L (0.6-1.2) mg/dl Est Cr Clr Drug Dosing 88.6 ml/min eGFR 99.56 BUN/Creatinine Ratio 27.3 H (10-20) Glucose 100 H (70-99(Fasting)) mg/dl POC Glucose 112 H 136 H (70-99) mg/dl Calcium 9.3 (8.6-10.3) mg/dl Phosphorus 4.3 (2.5-4.9) mg/dl Magnesium 1.9 (1.7-2.4) mg/dl 10/20/24 10/20/24 Range/Units 16:29 11:28 WBC (4.8-10.8) K/ul RBC (4.20-5.40) M/uL Hgb (12.0-16.0) g/dl Hct (37.0-47.0) % MCV (80.0-100.0) fL MCH (25.0-34.0) pg MCHC (32.0-36.0) g/dL RDW Std Deviation (36.4-46.3) fL RDW Coeff of Patti (11.5-14.5) % Plt Count (130-400) K/uL MPV (9.4-12.4) fL Sodium (136-145) mmol/L Potassium (3.5-5.1) mmol/L Chloride (98-107) mmol/L Carbon Dioxide (21-32) mmol/L Anion Gap (3-11) BUN (6-23) mg/dl Creatinine (0.6-1.2) mg/dl Est Cr Clr Drug Dosing ml/min eGFR BUN/Creatinine Ratio (10-20) Glucose (70-99(Fasting)) mg/dl POC Glucose 96 168 H (70-99) mg/dl Calcium (8.6-10.3) mg/dl Phosphorus (2.5-4.9) mg/dl Magnesium (1.7-2.4) mg/dl Medications Administered Current Inpatient Medications Acetaminophen (Acetaminophen 325 Mg Tab) 650 mg PO Q4H PRN PRN Reason: pain/fever Stop: 11/07/24 02:59 Last Admin: 10/21/24 05:53 Dose: 650 mg Acyclovir (Acyclovir 400 Mg Tab) 400 mg PO BID [place] Stop: 11/07/24 08:59 Last Admin: 10/21/24 07:47 Dose: 400 mg Amlodipine Besylate (Amlodipine Besylate 5 Mg Tab) 5 mg PO QAM [place] Stop: 11/07/24 08:59 Last Admin: 10/21/24 07:33 Dose: 5 mg Atorvastatin Calcium (Atorvastatin 20 Mg Tab) 20 mg PO HS [place] Stop: 11/07/24 20:59 Last Admin: 10/10/24 21:08 Dose: 20 mg Buspirone HCl (Buspirone 5 Mg Tab) 5 mg PO AMHS [place] Stop: 11/07/24 08:59 Last Admin: 10/21/24 07:34 Dose: 5 mg Citalopram Hydrobromide (Citalopram 20 Mg Tab) 10 mg PO QAM [place] Stop: 11/07/24 08:59 Last Admin: 10/21/24 07:33 Dose: 10 mg Dextrose (Dextrose 50% 50 Ml Syringe) 25 - 50 ml IV UD PRN; Protocol PRN Reason: Hypoglycemia Protocol Stop: 11/07/24 02:59 Enoxaparin Sodium (Enoxaparin Inj 40 Mg/0.4 Ml Syr) 40 mg SQ Q24H [place] Stop: 11/07/24 08:59 Last Admin: 10/13/24 08:46 Dose: Not Given Gabapentin (Gabapentin 100 Mg Cap) 100 mg PO BID [place] Stop: 11/07/24 08:59 Last Admin: 10/21/24 07:34 Dose: 100 mg Glucagon (Glucagon For Inj 1 Mg Vial) 1 mg SQ UD PRN; Protocol PRN Reason: Hypoglycemia Protocol Stop: 11/07/24 02:59 Glucose (Glucose 40% Gel 15 Gm Tube) 15 - 30 gm PO UD PRN; Protocol PRN Reason: Hypoglycemia Protocol Stop: 11/07/24 02:59 Glucose (Glucose 10 Tab/Tube) 4 - 8 tab PO UD PRN; Protocol PRN Reason: Hypoglycemia Protocol Stop: 11/07/24 02:59 Heparin Sodium (Porcine) (Heparin 100 Unit/Ml 5ml Flush) 5 ml FLUSH PRN PRN PRN Reason: Flush Stop: 11/07/24 03:03 Last Admin: 10/12/24 05:22 Dose: 5 ml Hydromorphone HCl (Hydromorphone Inj 1 Mg/Ml Syringe) 1 mg IV Q4H PRN PRN Reason: Breakthrough Pain Stop: 10/22/24 02:59 Last Admin: 10/13/24 19:31 Dose: 1 mg Promethazine HCl (Phenergan) 6.25 mg in 50.25 mls @ 201 mls/hr IV Q6H PRN PRN Reason: Nausea And Vomiting Stop: 11/08/24 08:11 Last Infusion: 10/11/24 08:20 Dose: Infused Vancomycin HCl (Vancomycin Hcl) 1,000 mg in 270 mls @ 200 mls/hr IV Q8H [place] Stop: 10/30/24 21:59 Last Infusion: 10/21/24 07:32 Dose: Infused Insulin Aspart (Insulin Aspart Per Unit Charge) 0 units SC ACHS [place] Stop: 11/13/24 05:59 Last Admin: 10/21/24 07:32 Dose: Not Given Lactobacillus Acidophilus (Advanced Probiotic 625 Mg Capsule) 1,250 mg PO DAILY [facility] Stop: 11/09/24 08:59 Last Admin: 10/21/24 07:34 Dose: 1,250 mg Levofloxacin (Levofloxacin 500 Mg Tab) 500 mg PO QAM [place]; Protocol Stop: 11/07/24 08:59 Last Admin: 10/14/24 12:57 Dose: 500 mg Lidocaine (Lidocaine 5% 1 Patch) 1 patch TD QA [place] Stop: 11/07/24 08:59 Last Admin: 10/21/24 07:35 Dose: 1 patch Loperamide HCl (Loperamide Hcl 2 Mg Cap) 2 mg PO UD PRN PRN Reason: diarrhea Stop: 11/13/24 18:36 Lorazepam (Lorazepam 0.5 Mg Tab) 0.5 mg PO DAILY PRN PRN Reason: Insomnia Stop: 11/07/24 02:59 Last Admin: 10/19/24 21:58 Dose: 0.5 mg Melatonin (Melatonin 3 Mg Tab) 3 mg PO HS PRN PRN Reason: Insomnia Stop: 11/07/24 03:07 Last Admin: 10/20/24 21:39 Dose: 3 mg Miscellaneous (Carbohydrates For Hypoglycemia ) 15 - 30 gm PO UD PRN PRN Reason: Hypoglycemia Protocol Stop: 11/07/24 02:59 Miscellaneous (Remove Lidoderm Patch) 1 each N/A DAILY@2100 [facility] Stop: 11/07/24 20:59 Last Admin: 10/20/24 21:46 Dose: 1 each Miscellaneous Information (Vancomycin Consult Active) 1 each N/A UD PRN PRN Reason: Consult Stop: 11/15/24 13:04 Oxycodone HCl (Oxycodone Hcl Ir 5 Mg Tab (Immediate Release)) 5 mg PO Q6H PRN PRN Reason: pain 5-8 Stop: 10/22/24 02:59 Last Admin: 10/21/24 05:52 Dose: 5 mg Oxycodone HCl (Oxycodone Hcl Ir 5 Mg Tab (Immediate Release)) 10 mg PO Q6H PRN PRN Reason: pain 9-10 Stop: 10/22/24 02:59 Last Admin: 10/18/24 10:10 Dose: 10 mg Polyethylene Glycol (Polyethylene (Miralax) 17 Gm Pack) 17 gm PO DAILY PRN PRN Reason: Constipation Stop: 11/07/24 02:59 Polyethylene Glycol (Polyethylene (Miralax) 17 Gm Pack) 17 gm PO QAM [facility] Stop: 11/19/24 08:59 Last Admin: 10/21/24 07:35 Dose: Not Given Potassium Chloride (Potassium Chloride 10 Meq Tabcr) 40 meq PO BID [facility] Stop: 11/11/24 08:59 Last Admin: 10/21/24 07:43 Dose: 40 meq Senna/Docusate Sodium (Docusate Sodium/Senna 50/8.6mg Tab) 1 tab PO BID [facility] Stop: 11/07/24 08:59 Last Admin: 10/21/24 07:44 Dose: 1 tab Voriconazole (Voriconazole 200 Mg Tablet) 200 mg PO Q12 [facility] Stop: 11/07/24 08:59 Last Admin: 10/21/24 07:35 Dose: 200 mg
[2024-10-21] MEDS: VANCOMYCIN LEVEL ONE (14:08)
--- NOTE | 2024-10-21 15:03 | Pharmacy Report ---
Pharmacy PK ABX Note - Date of Service October 21, 2024 - Assessment and Plan Assessment 10/21: Day #6 Vancomycin * Vanco level drawn this morning was 20.4mcg/mL which extrapolates to a supratherapeutic AUC. The maintenance dose of vancomycin has been decreased. * She also continues on Zosyn. 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 Trough level this AM, 11.7mcg/mL (~8h level drawn appropriately). 10/17 * Plan for 6-8 weeks of vancomycin. Random level today 11.6 mcg/mL suggests attainment of target AUC/ARNOLD * Will continue with current dose. Can get additional level at steady state 10/16: * The vancomycin was d/c and daptomycin was started on 10/11. Today the patient was changed back to vancomycin per ID recommendation as patient's condition is reportedly declining. IR drainage of fluid collection of lumbar spine done and cultured x 2 on 10/13. Both cultures grew S. epidermidis. Repeat blood cultures done 10/15 x 2 are no growth to date (preliminary). * Indwelling port removed as well on 10/14. * Will reload vancomycin and start a regimen targeting the upper end of the AUC goal. (ID recommends dosing for possible meningitis). * 10/10: 79 year old started on vancomycin due to positive blood culture result/Gm+ cocci -staph epi / BCID2 positive for mecA/C. Only 1/2 bottles positive, therefore potential for contaminant. Repeat blood cultures pending. Pt with history of recent lumbar spine fracture - admitted for worsening pain. Per notes, ortho recommending conservative measures. Also undergoing chemotherapy with last session in August. On suppressive abx with levaquin, voriconazole and acyclovir. Plan Vancomycin * Trough this AM was 20.4 mcg/mL which extrapolates to an AUC of 663mg/L.hr. * Maintenance dose decreased to 1250mg iv q 12 hours which has a predicted AUC in the goal range of 500-600mg/L.hr * Another vanco level has been scheduled for 10/24 with morning labs to ensure the patient is in the goal range with this regimen change. Pharmacy will continue to follow and will adjust dose/frequency as necessary. Thank you. Pharmacy has transitioned to AUC monitoring for vancomycin. AUC/ARNOLD is the preferred PK/PD target and is associated with decreased risk of nephrotoxicity compared to traditional trough targets.
[2024-10-22] MEDS: HYDROmorphone INJ 1 MG/ML SYRINGE IV PRN (05:33)
[2024-10-22] MEDS: VANCOMYCIN HCL 1,250 MG in SODIUM CHLORIDE 0.9% 250 ML IV SCH (06:02)
[2024-10-22 06:42] LABS: Creatinine Clr Calc Pharmacy 99.9 ml/min
--- NOTE | 2024-10-22 08:41 | Hospitalist Progress Note ---
Date of Service October 22, 2024 Assessment & Plan (1) Severe back pain: Plan: 79 yo F with type 2 diabetes, dyslipidemia, paroxysmal SVT, hypertension, GERD, osteoarthritis of both knees, AML, generalized anxiety disorder, spinal stenosis of lumbar region, persistent insomnia who was recently in the hospital for lumbar spine compression fracture and discharged to rehab comes back with severe back pain. Patient states at rehab she was having a lot of constipation and stool softeners were given since then she had a lot of back pain. The stool softeners relieved her constipation but the back pain got worse. She could not tolerate the back pain this reason she was came to the hospital today. She thinks she might had fever. Denies any bowel incontinence. She says sometimes she gets bladder incontinence but it is nothing new. Pain is not shooting down the legs. Ambulating with a walker but now the pain got worse. Denies any chest pain. No shortness of breath. No cough. No headache. No runny nose or sore throat. No difficulty swallowing. Last couple of days appetite is down. Last chemo was in August. She was supposed to get chemo on 09/29/2024 but because she is rehab it was held. Currently while resting seems comfortable and hem odynamics are okay. Severe back pain L1 and L3 compression fractures Staph epidermidis bacteremia Bilateral iliopsoas muscle fluid collections, likely infected Coming from rehab CT scan done in the ER shows same L1 L3 compression fractures patient's back pain not responding with pain management Discussed with Dr. Bergman (orthospine) In light of possible bacteremia, recommend repeat MRI of the spine Continue pain control, PT OT 10/12 MRI Lumbar spine reviewed: + fluid collections, edema iliopsoas, bilateral, likely infected Discussed with Dr. Bergman, agree with possible infected fluid collections around the lumbar spine Broaden antibiotic coverage with Zosyn in addition to daptomycin 10/[address] Bergman, recommend IR drainage of fluid collection in the lumbar spine Discussed with SARAH Rodriguez, IR drainage performed 10/16 Fluid drainage culture: positive for Staph epi - contacted ID - recommend to switch to vancomycin dose for poss. meningitis - discussed w/ pharmacy. dapto stopped, also zosyn to be stopped Dr. Bergman also updated - discussed with - no surgical intervention recommended further recommendations as per Dr. Bergman and ID Per ID Please continue on IV vancomycin to be adjusted based on vancomycin trough/AUC. She will require at least 6 to 8 weeks of IV antibiotics. I would also recommend repeating the MRI of the lumbar spine towards the end of treatment course. We would appreciate further assessment by the spine surgery for possible surgical intervention. Called lab to get sensitivities from [facility] obtained - sensitivities are back -> contacted ID - they plan to leave an updated note. Also discussed PICC line with ID and with the pt. Final ID recommendation pending Staph epidermidis bacteremia Initial blood culture (10/07): Staph epidermidis 1 out of 2 bottles Repeat blood cultures (10/10): Staph epidermidis 1 out of 2 bottles Echocardiogram: No mention of possible vegetation ID service recommends removal of indwelling port, port removed on 10/14 third set of blood cultures (10/15): NEGATIVE Lower abdominal Discomfort UA: Negative for UTI KUB: No obstruction, minimal fecal load -- resolved Hypokalemia replace and monitor AML undergoing chemotherapy History of pancytopenia WBC 6.5. Hemoglobin 10.1. Platelets 340 Currently undergoing monthly chemotherapy with decitabine/venetoclax Last chemo was in August. This month chemo was delayed because patient was in rehab Has appointment with Dr. Gaines on 10/29/2024 per last admission Continue suppressive antibiotics Levaquin, voriconazole and acyclovir 10/14 CBC stable Discussed with Dr. Gaines, patient is in remission from AML according to her she agrees with a port removal discussion of further chemotherapy with patient and family after patient recovers from this episode Hypertension On amlodipine. Last admit amlodipine was held for soft blood pressures Continue amlodipine for now. On furosemide with potassium supplements -- hold Lasix for now as patient is on the dry side Hyperlipidemia On statin Anxiety/depression On citalopram and buspirone Diabetes Diet controlled current HbA1c levels: 6.4 Sliding scale for now Recent A port placement supposed to followup with general surgery for evaluation Gen Surg consulted -- (+) bacteremia -- ID service consulted, recommend removal of port A-port removed 10/14/2024 DVT prophylaxis Lovenox Disposition Med Surg Full Code Disposition pending lives at home PT/OT eval Admission and Anticipated Discharge Date Admission Date: October 08, 2024 Subjective Pt seen in follow up Hx of AML, back pain Found to be bacteremic A-port removed by gen. surgery (10/14). Previously also fluid removal by IR (psoas muscle abscess) - [facility] posit. for Staph epi had loose stool - c. diff obtained was negative Discussed posit. cultx from IR w/ ID - switched to vancomycin. Discussed w/ ortho-spine (Dr. Bergman - no surg. intervention recommended) Previously also discussed w/ Dr. Gaines - reports AML in remission, pt's daughter worried about po inatke (ongoing for some time) Today pt found awake, alert, answers appropriately, continues to have some back pain and so she is not ambulating much. denies fever, chills, chest pain, shortness of breath. No abd. pain. Discussed w/ ID yesterday - will place updated final recs. pt will need PICC line. Brought consent to the pt and discussed with the pt yesterday and today. RN at the bedside. Review of Systems Review of Systems: All systems reviewed & are unremarkable except as noted in Subjective Physical Exam Physical Exam: General- WD/WN elderly F in NAD Eyes- anicteric Neck- no JVD Lungs- clear breath sounds anteriorly, no rales/wheezes Surgical site wound left upper chest wall: clean, dry, no discharge, no erythema Heart- normal rate, regular rhythm; no murmurs Abdomen- normal bowel sounds, nondistended, soft, nontender Extremities- no pretibial edema, no calf tenderness, moves extremities Neuro- awake, alert, answers appropriately, speech fluent, no facial asymmetry, moves extremities Skin- warm & dry Results & Data Results & Data Vital Signs (Past 12 Hours) Vital Signs Temp Pulse Resp BP BP Pulse Ox O2 Del Method 10/22/24 07:15 36.8 C 68 16 119/66 93 Room Air 10/21/24 23:07 36.7 C 75 18 110/68 96 Room Air Laboratory Results 10/22/24 10/22/24 10/21/24 Range/Units 07:17 05:38 20:27 Creatinine 0.39 L (0.6-1.2) mg/dl Est Cr Clr Drug Dosing 99.9 ml/min eGFR 102.50 POC Glucose 100 H 118 H (70-99) mg/dl Vitamin B12 323 (180-914) pg/ml Random Vancomycin (10-20) mcg/ml 09/02/25 09/02/25 09/02/25 Range/Units 16:30 14:00 11:24 Creatinine (0.6-1.2) mg/dl Est Cr Clr Drug Dosing ml/min eGFR POC Glucose 103 H 120 H (70-99) mg/dl Vitamin B12 (180-914) pg/ml Random Vancomycin 20.4 H (10-20) mcg/ml Medications Administered Current Inpatient Medications Acetaminophen (Acetaminophen 325 Mg Tab) 650 mg PO Q4H PRN PRN Reason: pain/fever Stop: 11/07/24 02:59 Last Admin: 10/21/24 17:41 Dose: 650 mg Acyclovir (Acyclovir 400 Mg Tab) 400 mg PO BID [place] Stop: 11/07/24 08:59 Last Admin: 10/21/24 20:37 Dose: 400 mg Amlodipine Besylate (Amlodipine Besylate 5 Mg Tab) 5 mg PO QAM [place] Stop: 11/07/24 08:59 Last Admin: 10/21/24 07:33 Dose: 5 mg Atorvastatin Calcium (Atorvastatin 20 Mg Tab) 20 mg PO HS [place] Stop: 11/07/24 20:59 Last Admin: 10/10/24 21:08 Dose: 20 mg Buspirone HCl (Buspirone 5 Mg Tab) 5 mg PO AMHS [place] Stop: 11/07/24 08:59 Last Admin: 10/21/24 20:37 Dose: 5 mg Citalopram Hydrobromide (Citalopram 20 Mg Tab) 10 mg PO QAM [place] Stop: 11/07/24 08:59 Last Admin: 10/21/24 07:33 Dose: 10 mg Dextrose (Dextrose 50% 50 Ml Syringe) 25 - 50 ml IV UD PRN; Protocol PRN Reason: Hypoglycemia Protocol Stop: 11/07/24 02:59 Enoxaparin Sodium (Enoxaparin Inj 40 Mg/0.4 Ml Syr) 40 mg SQ Q24H [place] Stop: 11/07/24 08:59 Last Admin: 10/13/24 08:46 Dose: Not Given Gabapentin (Gabapentin 100 Mg Cap) 100 mg PO BID [place] Stop: 11/07/24 08:59 Last Admin: 10/21/24 20:37 Dose: 100 mg Glucagon (Glucagon For Inj 1 Mg Vial) 1 mg SQ UD PRN; Protocol PRN Reason: Hypoglycemia Protocol Stop: 11/07/24 02:59 Glucose (Glucose 40% Gel 15 Gm Tube) 15 - 30 gm PO UD PRN; Protocol PRN Reason: Hypoglycemia Protocol Stop: 11/07/24 02:59 Glucose (Glucose 10 Tab/Tube) 4 - 8 tab PO UD PRN; Protocol PRN Reason: Hypoglycemia Protocol Stop: 11/07/24 02:59 Heparin Sodium (Porcine) (Heparin 100 Unit/Ml 5ml Flush) 5 ml FLUSH PRN PRN PRN Reason: Flush Stop: 11/07/24 03:03 Last Admin: 10/12/24 05:22 Dose: 5 ml Hydromorphone HCl (Hydromorphone Inj 1 Mg/Ml Syringe) 1 mg IV Q6H PRN PRN Reason: Severe Pain (Scale 7, 8, 9,10) Stop: 11/05/24 04:14 Last Admin: 10/22/24 05:33 Dose: 1 mg Promethazine HCl (Phenergan) 6.25 mg in 50.25 mls @ 201 mls/hr IV Q6H PRN PRN Reason: Nausea And Vomiting Stop: 11/08/24 08:11 Last Infusion: 10/11/24 08:20 Dose: Infused Vancomycin HCl 1,250 mg/ (Sodium Chloride) 275 mls @ 200 mls/hr IV Q12H [place] Stop: 11/05/24 05:59 Last Infusion: 10/22/24 07:30 Dose: Infused Insulin Aspart (Insulin Aspart Per Unit Charge) 0 units SC ACHS [place] Stop: 11/13/24 05:59 Last Admin: 10/21/24 20:38 Dose: Not Given Lactobacillus Acidophilus (Advanced Probiotic 625 Mg Capsule) 1,250 mg PO DAILY [place] Stop: 11/09/24 08:59 Last Admin: 10/21/24 07:34 Dose: 1,250 mg Levofloxacin (Levofloxacin 500 Mg Tab) 500 mg PO QAM [place]; Protocol Stop: 11/07/24 08:59 Last Admin: 10/14/24 12:57 Dose: 500 mg Lidocaine (Lidocaine 5% 1 Patch) [facility] [place] Stop: 11/07/24 08:59 Last Admin: 10/21/24 07:35 Dose: 1 patch Loperamide HCl (Loperamide Hcl 2 Mg Cap) 2 mg PO UD PRN PRN Reason: diarrhea Stop: 11/13/24 18:36 Lorazepam (Lorazepam 0.5 Mg Tab) 0.5 mg PO DAILY PRN PRN Reason: Insomnia Stop: 11/07/24 02:59 Last Admin: 10/19/24 21:58 Dose: 0.5 mg Melatonin (Melatonin 3 Mg Tab) 3 mg PO HS PRN PRN Reason: Insomnia Stop: 11/07/24 03:07 Last Admin: 10/20/24 21:39 Dose: 3 mg Miscellaneous (Carbohydrates For Hypoglycemia ) 15 - 30 gm PO UD PRN PRN Reason: Hypoglycemia Protocol Stop: 11/07/24 02:59 Miscellaneous (Remove Lidoderm Patch) 1 each N/A DAILY@2100 [facility] Stop: 11/07/24 20:59 Last Admin: 10/21/24 22:01 Dose: Not Given Miscellaneous Information (Vancomycin Consult Active) 1 each N/A UD PRN PRN Reason: Consult Stop: 11/15/24 13:04 Oxycodone HCl (Oxycodone Hcl Ir 5 Mg Tab (Immediate Release)) 5 mg PO Q6H PRN PRN Reason: Mod-Sev Pain (Scale 4-10) Stop: 11/05/24 04:14 Polyethylene Glycol (Polyethylene (Miralax) 17 Gm Pack) 17 gm PO DAILY PRN PRN Reason: Constipation Stop: 11/07/24 02:59 Polyethylene Glycol (Polyethylene (Miralax) 17 Gm Pack) 17 gm PO QAM [facility] Stop: 11/19/24 08:59 Last Admin: 10/21/24 07:35 Dose: Not Given Potassium Chloride (Potassium Chloride 10 Meq Tabcr) 40 meq PO BID [facility] Stop: 11/11/24 08:59 Last Admin: 10/21/24 20:36 Dose: 40 meq Senna/Docusate Sodium (Docusate Sodium/Senna 50/8.6mg Tab) 1 tab PO BID [facility] Stop: 11/07/24 08:59 Last Admin: 10/21/24 20:37 Dose: 1 tab Voriconazole (Voriconazole 200 Mg Tablet) 200 mg PO Q12 [facility] Stop: 11/07/24 08:59 Last Admin: 10/21/24 20:36 Dose: 200 mg
[2024-10-22] MEDS: CYANOCOBALAMIN (B-12) 500 MCG TABLET PO SCH (11:48)
--- NOTE | 2024-10-22 14:13 | Communication Note ---
Date of Service: October 22, 2024 Patient admitted at [facility]: Since the spine surgical team is not planning for any surgical intervention, I would recommend continuing on IV vancomycin to complete a course of 8 weeks with anticipated end date of December 03, 2024. We will repeat MRI of the spine in 6 weeks from today. 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
[2024-10-23 06:26] LABS: Hematocrit (blood only) 32.4 % (37.0-47.0); Hemoglobin 10.4 g/dl (12.0-16.0); Mean Corpuscular Hemoglobin 31.8 pg (25.0-34.0); Mean Corpuscular Volume 99.1 fL (80.0-100.0); Platelet Count 280 K/uL (130-400); RDW Standard Deviation 57.4 fL (36.4-46.3); Red Blood Count 3.27 M/uL (4.20-5.40); White Blood Count 5.97 K/ul (4.8-10.8)
[2024-10-23 06:53] LABS: Anion Gap 11.0 (3-11); Blood Urea Nitrogen 12.0 mg/dl (6-23); Calcium 9.6 mg/dl (8.6-10.3); Carbon Dioxide 25.0 mmol/L (21-32); Chloride 103.0 mmol/L (98-107); Creatinine Clr Calc Pharmacy 88.6 ml/min; Glucose 87.0 mg/dl (70-99(Fasting)); Magnesium 2.1 mg/dl (1.7-2.4); Potassium 4.4 mmol/L (3.5-5.1); Sodium 139.0 mmol/L (136-145)
[2024-10-23 09:45] LABS: Alanine Aminotransferase 10.0 U/L (7-52); Alkaline Phosphatase 137.0 U/L (34-104); Bilirubin,Total 0.4 mg/dl (0.2-1.0); Total Protein 7.6 gm/dl (6.0-8.3)
[2024-10-23] MEDS: ACETAMINOPHEN 500 MG TAB PO SCH (09:45)
[2024-10-23] MEDS: HYDROmorphone INJ 1 MG/ML SYRINGE IV PRN (23:16)
[2024-10-24 06:17] LABS: Creatinine Clr Calc Pharmacy 88.6 ml/min
--- NOTE | 2024-10-24 08:27 | Hospitalist Progress Note ---
Date of Service October 24, 2024 delayed entry date of service 10/23/2024 Assessment & Plan (1) Severe back pain: Plan: (1) Severe back pain: Plan: 79 yo F with type 2 diabetes, dyslipidemia, paroxysmal SVT, hypertension, GERD, osteoarthritis of both knees, AML, generalized anxiety disorder, spinal stenosis of lumbar region, persistent insomnia who was recently in the hospital for lumbar spine compression fracture and discharged to rehab comes back with severe back pain. Patient states at rehab she was having a lot of constipation and stool softeners were given since then she had a lot of back pain. The stool softeners relieved her constipation but the back pain got worse. She could not tolerate the back pain this reason she was came to the hospital today. She thinks she might had fever. Denies any bowel incontinence. She says sometimes she gets bladder incontinence but it is nothing new. Pain is not shooting down the legs. Ambulating with a walker but now the pain got worse. Denies any chest pain. No shortness of breath. No cough. No headache. No runny nose or sore throat. No difficulty swallowing. Last couple of days appetite is down. Last chemo was in August. She was supposed to get chemo on 09/29/2024 but because she is rehab it was held. Currently while resting seems comfortable and hemodynamics are okay. Severe back pain L1 and L3 compression fractures Staph epidermidis bacteremia Bilateral iliopsoas muscle fluid collections, likely infected Coming from rehab CT scan done in the ER shows same L1 L3 compression fractures patient's back pain not responding with pain management Discussed with Dr. Bergman (orthospine) In light of possible bacteremia, recommend repeat MRI of the spine Continue pain control, PT OT 10/12 MRI Lumbar spine reviewed: + fluid collections, edema iliopsoas, bilateral, likely infected Discussed with Dr. Bergman, agree with possible infected fluid collections around the lumbar spine Broaden antibiotic coverage with Zosyn in addition to daptomycin 10/[address] Bergman, recommend IR drainage of fluid collection in the lumbar spine Discussed with SARAH Rodriguez, IR drainage performed 10/16 Fluid drainage culture: positive for Staph epi - contacted ID - recommend to switch to vancomycin dose for poss. meningitis - discussed w/ pharmacy. dapto stopped, also zosyn to be stopped Dr. Bergman also updated - discussed with - no surgical intervention recommended further recommendations as per Dr. Bergman and ID Per ID Please continue on IV vancomycin to be adjusted based on vancomycin trough/AUC. She will require at least 6 to 8 weeks of IV antibiotics. I would also recommend repeating the MRI of the lumbar spine towards the end of treatment course. We would appreciate further assessment by the spine surgery for possible surgical intervention. Called lab to get sensitivities from [facility] obtained - sensitivities are back -> contacted ID - they plan to leave an updated note. Also discussed PICC line with ID and with the pt. Final ID recommendation pending 10/23 Final ID service recommendations: Patient admitted at [facility]: Since the spine surgical team is not planning for any surgical intervention, I would recommend continuing on IV vancomycin to complete a course of 8 weeks with anticipated end date of December 03, 2024. We will repeat MRI of the spine in 6 weeks from today. 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 MicrobiologyStaphylococcus epidermidis AntibioticVancomycin Dose per Pharmacy for Goal AUC 400-600 mg/L/hr End DateDec 03, 2024 Vascular access: Do not remove PICC line until the infectious disease physician approves Recommended followup imaging studies: MRI lumbar spine (Ordered by me in [employer] system) LABORATORY MONITORING: Lab TestFrequencyEnd Date BMP CBC with diff Vancomycin level(s) for AUC monitoringQ weekDec 03, 2024 PROVIDERS: Following ID PhysicianID clinic follow-up date José Manuel Magañaa12 weeks Patient having severe back pain today Add Tylenol 1 g 3 times daily scheduled Patient also having confusion likely secondary to delirium, possible hospital delirium, medication related DC Ativan Lower dose of Dilaudid IV Delirium prevention strategies Discussed with RN 10/24 Patient now oriented, answering questions appropriately Continue as needed pain medications Back pain improving Continue IV vancomycin IV team followed up for PICC line placement Staph epidermidis bacteremia Initial blood culture (10/07): Staph epidermidis 1 out of 2 bottles Repeat blood cultures (10/10): Staph epidermidis 1 out of 2 bottles Echocardiogram: No mention of possible vegetation ID service recommends removal of indwelling port, port removed on 10/14 third set of blood cultures (10/15): NEGATIVE Lower abdominal Discomfort UA: Negative for UTI KUB: No obstruction, minimal fecal load -- resolved Hypokalemia replace and monitor AML undergoing chemotherapy History of pancytopenia WBC 6.5. Hemoglobin 10.1. Platelets 340 Currently undergoing monthly chemotherapy with decitabine/venetoclax Last chemo was in August. This month chemo was delayed because patient was in rehab Has appointment with Dr. Gaines on 10/29/2024 per last admission Continue suppressive antibiotics Levaquin, voriconazole and acyclovir 10/14 CBC stable Discussed with Dr. Gaines, patient is in remission from AML according to her she agrees with a port removal discussion of further chemotherapy with patient and family after patient recovers from this episode 10/[address] Gaines may DC prophylactic Levaquin but continue acyclovir Hypertension On amlodipine. Last admit amlodipine was held for soft blood pressures Continue amlodipine for now. On furosemide with potassium supplements -- hold Lasix for now as patient is on the dry side Hyperlipidemia On statin Anxiety/depression On citalopram and buspirone Diabetes Diet controlled current HbA1c levels: 6.4 Sliding scale for now Recent A port placement supposed to followup with general surgery for evaluation Gen Surg consulted -- (+) bacteremia -- ID service consulted, recommend removal of port A-port removed 10/14/2024 DVT prophylaxis Lovenox Disposition Med Surg Full Code Disposition pending lives at home PT/OT eval Admission and Anticipated Discharge Date Admission Date: October 08, 2024 Subjective seen resting in bed, comfortable, not in distress Awake and alert, oriented x 3, answering questions appropriately, in good spirits States back pain is better today compared to yesterday Pain medication relieving pain No shortness of breath, chest pain, abdominal pain, nausea Appetite is fair No other new symptoms Discussed with TIMOTHY Love, patient more oriented today, no confusion so far Review of Systems Review of Systems: all noted and negative except for above Physical Exam Physical Exam: General- oriented x 2, not in distress, speaks in sentences with no effort or accessory muscle use Eyes- anicteric Neck- no JVD Lungs- clear breath sounds bilaterally, no rales/wheezes Heart- normal rate, regular rhythm; no murmurs Abdomen- normal bowel sounds, nondistended, soft, nontender Extremities- no pretibial edema, no calf tenderness Neuro- alert, oriented x 2; no gross focal neurologic deficits Skin- warm & dry Results & Data Results & Data Vital Signs (Past 12 Hours) Vital Signs Temp Pulse Pulse Resp BP Pulse Ox O2 Del Method 10/24/24 07:41 36.6 C 98 H 18 148/88 H 99 Room Air 10/23/24 23:03 36.5 C 95 H 144/71 H 99 Room Air all noted and reviewed including below
--- NOTE | 2024-10-24 12:52 | Pharmacy Report ---
Pharmacy PK ABX Note - Date of Service October 24, 2024 - Assessment and Plan Assessment 10/24: Day #9 vancomycin. * Vancomycin level drawn early this morning was reported as 30.8mcg/mL, however, it was drawn while the dose of vancomycin was infusing. The RN stopped the vancomycin infusion another vanco level was obtained ~4.5 hrs later which was 18.6mcg/mL. This extrapolates to a supratherapeutic AUC, so the maintenance dose of vancomycin was decreased. * Vancomycin is to continue through 12/03/24. She also continues on po levofloxacin. 10/21: Day #6 Vancomycin * Vanco level drawn this morning was 20.4mcg/mL which extrapolates to a supratherapeutic AUC. The maintenance dose of vancomycin has been decreased. * She also continues on Zosyn. 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 Trough level this AM, 11.7mcg/mL (~8h level drawn appropriately). 10/17 * Plan for 6-8 weeks of vancomycin. Random level today 11.6 mcg/mL suggests attainment of target AUC/ARNOLD * Will continue with current dose. Can get additional level at steady state 10/16: * The vancomycin was d/c and daptomycin was started on 10/11. Today the patient was changed back to vancomycin per ID recommendation as patient's condition is reportedly declining. IR drainage of fluid collection of lumbar spine done and cultured x 2 on 10/13. Both cultures grew S. epidermidis. Repeat blood cultures done 10/15 x 2 are no growth to date (preliminary). * Indwelling port removed as well on 10/14. * Will reload vancomycin and start a regimen targeting the upper end of the AUC goal. (ID recommends dosing for possible meningitis). * 10/10: 79 year old started on vancomycin due to positive blood culture result/Gm+ cocci -staph epi / BCID2 positive for mecA/C. Only 1/2 bottles positive, therefore potential for contaminant. Repeat blood cultures pending. Pt with history of recent lumbar spine fracture - admitted for worsening pain. Per notes, ortho recommending conservative measures. Also undergoing chemotherapy with last session in August. On suppressive abx with levaquin, voriconazole and acyclovir. Plan Vancomycin * Level this AM was 18.6 mcg/mL which extrapolates to an AUC above the goal range. * Maintenance dose decreased to 1000 mg iv q 12 hours which has a predicted AUC in the goal range of 500-600mg/L.hr * Another vanco level has been scheduled for 10/26 with morning labs to ensure the patient is in the goal range with this regimen change. Pharmacy will continue to follow and will adjust dose/frequency as necessary. Thank you. Pharmacy has transitioned to AUC monitoring for vancomycin. AUC/ARNOLD is the preferred PK/PD target and is associated with decreased risk of nephrotoxicity compared to traditional trough targets.
[2024-10-24] MEDS: VANCOMYCIN HCL / NSS 1,000 MG/270 ML BAG IV SCH (17:30)
[2024-10-25 06:35] LABS: Anion Gap 9.0 (3-11); Blood Urea Nitrogen 11.0 mg/dl (6-23); Calcium 9.1 mg/dl (8.6-10.3); Carbon Dioxide 24.0 mmol/L (21-32); Chloride 105.0 mmol/L (98-107); Creatinine Clr Calc Pharmacy 97.4 ml/min; Glucose 79.0 mg/dl (70-99(Fasting)); Potassium 4.1 mmol/L (3.5-5.1); Sodium 138.0 mmol/L (136-145)
--- NOTE | 2024-10-25 17:55 | Hospitalist Progress Note ---
Date of Service October 25, 2024 Assessment & Plan (1) Severe back pain: Plan: (1) Severe back pain: Plan: 79 yo F with type 2 diabetes, dyslipidemia, paroxysmal SVT, hypertension, GERD, osteoarthritis of both knees, AML, generalized anxiety disorder, spinal stenosis of lumbar region, persistent insomnia who was recently in the hospital for lumbar spine compression fracture and discharged to rehab comes back with severe back pain. Patient states at rehab she was having a lot of constipation and stool softeners were given since then she had a lot of back pain. The stool softeners relieved her constipation but the back pain got worse. She could not tolerate the back pain this reason she was came to the hospital today. She thinks she might had fever. Denies any bowel incontinence. She says sometimes she gets bladder incontinence but it is nothing new. Pain is not shooting down the legs. Ambulating with a walker but now the pain got worse. Denies any chest pain. No shortness of breath. No cough. No headache. No runny nose or sore throat. No difficulty swallowing. Last couple of days appetite is down. Last chemo was in August. She was supposed to get chemo on 09/29/2024 but because she is rehab it was held. Currently while resting seems comfortable and hemodynamics are okay. Severe back pain L1 and L3 compression fractures Staph epidermidis bacteremia Bilateral iliopsoas muscle fluid collections, likely infected Coming from rehab CT scan done in the ER shows same L1 L3 compression fractures patient's back pain not responding with pain management Discussed with Dr. Bergman (orthospine) In light of possible bacteremia, recommend repeat MRI of the spine Continue pain control, PT OT 10/12 MRI Lumbar spine reviewed: + fluid collections, edema iliopsoas, bilateral, likely infected Discussed with Dr. Bergman, agree with possible infected fluid collections around the lumbar spine Broaden antibiotic coverage with Zosyn in addition to daptomycin 10/[address] Bergman, recommend IR drainage of fluid collection in the lumbar spine Discussed with SARAH Rodriguez, IR drainage performed 10/16 Fluid drainage culture: positive for Staph epi - contacted ID - recommend to switch to vancomycin dose for poss. meningitis - discussed w/ pharmacy. dapto stopped, also zosyn to be stopped Dr. Bergman also updated - discussed with - no surgical intervention recommended further recommendations as per Dr. Bergman and ID Per ID Please continue on IV vancomycin to be adjusted based on vancomycin trough/AUC. She will require at least 6 to 8 weeks of IV antibiotics. I would also recommend repeating the MRI of the lumbar spine towards the end of treatment course. We would appreciate further assessment by the spine surgery for possible surgical intervention. Called lab to get sensitivities from [facility] obtained - sensitivities are back -> contacted ID - they plan to leave an updated note. Also discussed PICC line with ID and with the pt. Final ID recommendation pending 10/23 Final ID service recommendations: Patient admitted at [facility]: Since the spine surgical team is not planning for any surgical intervention, I would recommend continuing on IV vancomycin to complete a course of 8 weeks with anticipated end date of December 03, 2024. We will repeat MRI of the spine in 6 weeks from today. 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 MicrobiologyStaphylococcus epidermidis AntibioticVancomycin Dose per Pharmacy for Goal AUC 400-600 mg/L/hr End DateDec 03, 2024 Vascular access: Do not remove PICC line until the infectious disease physician approves Recommended followup imaging studies: MRI lumbar spine (Ordered by me in [facility] system) LABORATORY MONITORING: Lab TestFrequencyEnd Date BMP CBC with diff Vancomycin level(s) for AUC monitoringQ weekDec 03, 2024 PROVIDERS: Following ID PhysicianID clinic follow-up date José Manuel Magaña weeks Patient having severe back pain today Add Tylenol 1 g 3 times daily scheduled Patient also having confusion likely secondary to delirium, possible hospital delirium, medication related DC Ativan Lower dose of Dilaudid IV Delirium prevention strategies Discussed with RN 10/24 Patient now oriented, answering questions appropriately Continue as needed pain medications Back pain improving Continue IV vancomycin IV team followed up for PICC line placement 10/25 having mostly buttock pain and bilateral inguinal pain today with movement repeat MRI tomorrow Staph epidermidis bacteremia Initial blood culture (10/07): Staph epidermidis 1 out of 2 bottles Repeat blood cultures (10/10): Staph epidermidis 1 out of 2 bottles Echocardiogram: No mention of possible vegetation ID service recommends removal of indwelling port, port removed on 10/14 third set of blood cultures (10/15): NEGATIVE Lower abdominal Discomfort UA: Negative for UTI KUB: No obstruction, minimal fecal load -- resolved Hypokalemia replace and monitor AML undergoing chemotherapy History of pancytopenia WBC 6.5. Hemoglobin 10.1. Platelets 340 Currently undergoing monthly chemotherapy with decitabine/venetoclax Last chemo was in August. This month chemo was delayed because patient was in rehab Has appointment with Dr. Gaines on 10/29/2024 per last admission Continue suppressive antibiotics Levaquin, voriconazole and acyclovir 10/14 CBC stable Discussed with Dr. Gaines, patient is in remission from AML according to her she agrees with a port removal discussion of further chemotherapy with patient and family after patient recovers from this episode 10/[address] Gaines may DC prophylactic Levaquin but continue acyclovir Hypertension On amlodipine Last admit amlodipine was held for soft blood pressures Continue amlodipine for now. On furosemide with potassium supplements -- hold Lasix for now as patient is on the dry side Hyperlipidemia On statin Anxiety/depression On citalopram and buspirone Diabetes Diet controlled current HbA1c levels: 6.4 Sliding scale for now Recent A port placement supposed to followup with general surgery for evaluation Gen Surg consulted -- (+) bacteremia -- ID service consulted, recommend removal of port A-port removed 10/14/2024 DVT prophylaxis Lovenox Disposition Med Surg Full Code Disposition pending Admission and Anticipated Discharge Date Admission Date: October 08, 2024 Subjective seen resting in bed, Other distress States she is having significant buttock pain and bilateral inguinal pain, worse with movement No fevers or chills No other new symptoms Review of Systems Review of Systems: all noted and negative except for above Physical Exam Physical Exam: General- oriented x 3, not in distress, speaks in sentences with no effort or accessory muscle use Eyes- anicteric Neck- no JVD Lungs- clear breath sounds bilaterally, no rales/wheezes Heart- normal rate, regular rhythm; no murmurs Abdomen- normal bowel sounds, nondistended, soft, nontender Extremities- no pretibial edema, no calf tenderness Neuro- alert, oriented x 3; no gross focal neurologic deficits Skin- warm & dry Results & Data Results & Data Vital Signs (Past 12 Hours) Vital Signs Temp Pulse Resp BP Pulse Ox O2 Del Method 10/25/24 15:17 36.7 C 98 H 20 124/75 94 Room Air 10/25/24 07:11 36.3 C L 105 H 16 163/84 H 98 Room Air all noted and reviewed including below
[2024-10-26] MEDS: VANCOMYCIN LEVEL ONE (04:35)
[2024-10-26 05:04] LABS: Anion Gap 9.0 (3-11); Blood Urea Nitrogen 12.0 mg/dl (6-23); Calcium 8.9 mg/dl (8.6-10.3); Carbon Dioxide 23.0 mmol/L (21-32); Chloride 107.0 mmol/L (98-107); Creatinine Clr Calc Pharmacy 105.3 ml/min; Glucose 76.0 mg/dl (70-99(Fasting)); Potassium 4.4 mmol/L (3.5-5.1); Sodium 139.0 mmol/L (136-145)
--- NOTE | 2024-10-26 10:48 | Electrocardiogram Report ---
Test Reason : Blood Pressure : */* mmHG Vent. Rate : 111 BPM Atrial Rate : 111 BPM P-R Int : 128 ms QRS Dur : 114 ms QT Int : 374 ms P-R-T Axes : 51 -2 -54 degrees QTcB Int : 508 ms Poor data quality, interpretation may be adversely affected Sinus tachycardia Incomplete right bundle branch block Abnormal ECG When compared with ECG of 24-Feb-2024 12:07, Incomplete right bundle branch block has replaced Right bundle branch block Confirmed by Lavelle Machado ([id number]) on 10/26/2024 10:48:19 AM Referred By: REFERRED SELF Confirmed By: Lavelle Machado
--- NOTE | 2024-10-26 12:40 | Pharmacy Report ---
Pharmacy PK ABX Note - Date of Service October 26, 2024 - Assessment and Plan Assessment 10/26 * Random level 11.5 mcg/mL this morning which suggests below higher target range of 500-600 AUC/ARONLD once level drawn while vanco infusing was removed from data (within 400-600 AUC/ARNOLD range). Given uncertainty of previous level/if it was removed with previous calculations will confirm tomorrow morning prior to increasing dose. 10/24: Day #9 vancomycin. * Vancomycin level drawn early this morning was reported as 30.8mcg/mL, however, it was drawn while the dose of vancomycin was infusing. The RN stopped the vancomycin infusion another vanco level was obtained ~4.5 hrs later which was 18.6mcg/mL. This extrapolates to a supratherapeutic AUC, so the maintenance dose of vancomycin was decreased. * Vancomycin is to continue through 12/03/24. She also continues on po levofloxacin. 10/21: Day #6 Vancomycin * Vanco level drawn this morning was 20.4mcg/mL which extrapolates to a supratherapeutic AUC. The maintenance dose of vancomycin has been decreased. * She also continues on Zosyn. 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 Trough level this AM, 11.7mcg/mL (~8h level drawn appropriately). 10/17 * Plan for 6-8 weeks of vancomycin. Random level today 11.6 mcg/mL suggests attainment of target AUC/ARNOLD * Will continue with current dose. Can get additional level at steady state 10/16: * The vancomycin was d/c and daptomycin was started on 10/11. Today the patient was changed back to vancomycin per ID recommendation as patient's condition is reportedly declining. IR drainage of fluid collection of lumbar spine done and cultured x 2 on 10/13. Both cultures grew S. epidermidis. Repeat blood cultures done 10/15 x 2 are no growth to date (preliminary). * Indwelling port removed as well on 10/14. * Will reload vancomycin and start a regimen targeting the upper end of the AUC goal. (ID recommends dosing for possible meningitis). * 10/10: 79 year old started on vancomycin due to positive blood culture result/Gm+ cocci -staph epi / BCID2 positive for mecA/C. Only 1/2 bottles positive, therefore potential for contaminant. Repeat blood cultures pending. Pt with history of recent lumbar spine fracture - admitted for worsening pain. Per notes, ortho recommending conservative measures. Also undergoing chemotherapy with last session in August. On suppressive abx with levaquin, voriconazole and acyclovir. Plan Vancomycin * Level this AM was 11.5 mcg/mL which suggests dosing within AUC/ARNOLD range 400- 600 mg/L.hr * Confirm with level with AM dose prior to dose adjustment Pharmacy will continue to follow and will adjust dose/frequency as necessary. Thank you. Pharmacy has transitioned to AUC monitoring for vancomycin. AUC/ARNOLD is the preferred PK/PD target and is associated with decreased risk of nephrotoxicity compared to traditional trough targets.
--- NOTE | 2024-10-26 13:16 | Psychiatric Consultation ---
Date of Consultation October 26, 2024 Impression / Recommendations Impression 79 yo F with type 2 diabetes, dyslipidemia, paroxysmal SVT, hypertension, GERD, osteoarthritis of both knees, AML, generalized anxiety disorder, spinal stenosis of lumbar region, persistent insomnia who was recently in the hospital for lumbar spine compression fracture and discharged to rehab comes back with severe back pain. Psychiatry consulted for evaluation. Concern for NEVA and depression secondary to stressors (loss of independence, isolation, back pain). May benefit from optimization of SSRI antidepressant for anxious ruminations and low dose mirtazapine for appetite and sleep. Patient was encouraged to engage in regular therapy and we can send a referral if she is interested. No acute safety concerns. Collateral obtained from pt daughter was consistent with interview. Overall, I spent a total of 80 minutes with this case including review of chart records, nursing report, review of lab work, direct evaluation of the patient at bedside, counseling the patient, discussion of the patient with the hospitalist provider, discussion with the psychiatric liaison during clinical rounds, and documentation in the electronic health record. (1) Anxiety and depression: (2) Poor appetite: (3) Generalized anxiety disorder: (4) Severe back pain: (5) Compression fracture of lumbar vertebra: Plan 10/26/24: Increase Citalopram to 20mg daily D/c buspirone Start Mirtazapine 7.5mg HS Psych History Identifying Data 79 yo F with type 2 diabetes, dyslipidemia, paroxysmal SVT, hypertension, GERD, osteoarthritis of both knees, AML, generalized anxiety disorder, spinal stenosis of lumbar region, persistent insomnia who was recently in the hospital for lumbar spine compression fracture and discharged to rehab comes back with severe back pain. Psychiatry consulted for evaluation. Chief Complaint "Terrible" History of Present Illness The patient c/o loss of independence and has taken a toll on her mental health. 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 Father and passed in recent years and having trouble coping with losses. Reports being in pain and affecting mobility and ability to engage in daily tasks. Reports having a supportive family and tries to involve her. Endorses low energy due to lack of activity and medication s/e. Difficulty falling asleep and able to stay asleep. Appetite has been poor. Denies excess guilt. Some anhedonia. Reports excess anxious ruminations about her future, her health. Does not want to be a burden on others. Reports PCP started her on celexa after passed. Denies prior h/o depression or family psych problems. Denies SI. Wants to live for family. Does not have formal outpatient therapy, however reports [facility] and she can be open with her. Collateral from daughter indicates patient is reluctant to receive help from family and has been having trouble coping with changes in her life as she was always independent. Allergies Allergy/AdvReac Type Severity Reaction Status Date / Time No Known Allergies Allergy Mild Verified 09/17/24 11:27 Home Medications Medication Instructions Recorded Confirmed Type acetaminophen 500 mg tablet 1,000 mg PO Q8 PRN .FEVER/MILD 11/17/19 10/07/24 History PAIN 1-4 citalopram 10 mg tablet 10 mg PO QAM 01/09/24 10/07/24 History gabapentin 100 mg capsule 100 mg PO BID 01/09/24 10/07/24 History voriconazole 200 mg tablet 200 mg PO Q12 01/30/24 10/07/24 History ondansetron HCl 4 mg tablet 4 mg PO Q6H PRN Nausea And 02/02/24 10/07/24 Rx Vomiting #30 tabs amlodipine 10 mg tablet 5 mg PO QAM 08/26/24 10/07/24 History furosemide 20 mg tablet 10 mg PO Q OTHER DAY 08/26/24 10/07/24 History potassium chloride 10 mEq 10 meq PO Q OTHER DAY 08/26/24 10/07/24 History tablet,extended release atorvastatin 20 mg tablet 20 mg PO HS 09/10/24 10/07/24 History decitabine 50 mg intravenous 0 mg IV MONTHLY 09/10/24 10/07/24 History solution levofloxacin 500 mg tablet 500 mg PO QAM 09/25/24 10/07/24 History lorazepam 0.5 mg tablet 0.5 mg PO DAILY PRN Insomnia 09/25/24 10/07/24 History polyethylene glycol 3350 17 gram 17 g PO BID #1 ea 10/01/24 10/07/24 Rx oral powder packet (Miralax) sennosides 8.6 mg-docusate sodium 1 tab PO BID #1 tab 10/01/24 10/07/24 Rx 50 mg tablet (Senokot-S) acyclovir 400 mg tablet 400 mg PO BID 10/07/24 10/07/24 History buspirone 5 mg tablet 5 mg PO AMHS 10/07/24 10/07/24 History melatonin 5 mg tablet 5 mg PO HS PRN Insomnia 10/07/24 10/07/24 History oxycodone 5 mg tablet 5 mg PO Q6H PRN pain 5-8 10/07/24 10/07/24 History oxycodone 5 mg tablet 10 mg PO Q6H PRN pain 9-10 10/07/24 10/07/24 History tramadol 50 mg tablet 50 mg PO BID PRN pain 5-10 10/07/24 10/07/24 History Patient History Medical History (Updated 10/26/24 @ 13:50 by José Condon MD) Compression fracture of L1 vertebra Pericardial effusion History of - 02/2024- evaluated by [facility]- felt related to AML and/or chemo treatments- repeat ECHOs showed improvement (most recent ECHO 05/2024) Lumbar spondylosis Biceps tendinitis of right shoulder Anxiety HTN (hypertension) Diabetes mellitus type II, controlled no meds most recent Hgb A1C 12/2024 was 7.5 History of cellulitis 12/2023 per records Hx of acute respiratory failure (01/2024) had been at [place], transferred to [facility]- resolved AML (acute myeloblastic leukemia) (12/2023) [facility]- dr. oliver- gets chemo 1 week every month unless wbc is off, last chemo was week of august 31. has blood drawn weekly at [facility] SVT (supraventricular tachycardia) (2004) History of SVT- s/p 2004- no issues since. Sciatica Elevated cholesterol Controlled with statin Surgical History (Updated 10/14/24 @ 15:48 by Erin Almazan RN) Port-A-Cath in place (10/14/24) Removal of A-port(Left) - Randall Treviño DO History of insertion of tunneled central venous catheter (CVC) with port (01/2024) right side armstrong cath placed in [place] History of left knee replacement (2019) History of bone marrow biopsy (07/17/24) x3- [place] and [facility] S/P epidural steroid injection sciatica History of appendectomy (1967) H/O cardiac radiofrequency ablation (2004) 2004 H/O: hysterectomy (1989) [facility] with BSO Family History Father Cancer Other Coronary heart disease Diabetes Leukemia No family history of adverse response to anesthesia Social History Smoking Status: Never smoker Second Hand Exposure: No; Do You Dip or Chew Tobacco: No; Hx Alcohol Use: Yes Alcohol type: wine Hx Substance Use: No Preferred Language: Sinhala Communication Ability: Effective Visual Impairment: No Limitations Power Wheelchair Mechanic Required: No Beliefs That Will Affect Care: None marital status: Current Living Situation: Family Current Living Situation Comment: lives w/daughter & grandson Feels Safe at Home: Yes Assistive Devices: Cane and Walker Physical Exam Mental Examination: Appearance: Well Groomed Eye Contact: Maintains Eye Contact Motor Behavior: Unremarkable Speech: Normal Mood: Calm and Anxious Affect: Constricted Thought Process: Intact and Linear Thought Content: Intact Hallucinations: None Insight: Fair (to limited) Judgement: Fair (to limited) Vital Signs (Past 24 Hours): Last Vital Signs Temp 36.8 C 10/26/24 07:20 Pulse 96 H 10/26/24 07:20 Resp 16 10/26/24 07:20 BP 130/76 10/26/24 07:20 Pulse Ox 92 10/26/24 07:20 O2 Del Method Room Air 10/26/24 07:20 O2 Flow Rate 2 10/14/24 11:30 Results & Data (PSY) Medications Administered Acetaminophen (Acetaminophen 500 Mg Tab) 1,000 mg PO Q8H [place] Stop: 11/22/24 09:59 Last Admin: 10/26/24 10:05 Dose: 1,000 mg Documented By: Admin: 10/26/24 01:12 Dose: 1,000 mg Documented By: Admin: 10/25/24 17:16 Dose: 1,000 mg Documented By: Admin: 10/25/24 09:58 Dose: 1,000 mg Documented By: Admin: 10/25/24 01:00 Dose: 1,000 mg Documented By: Admin: 10/24/24 17:30 Dose: 1,000 mg Documented By: Admin: 10/24/24 10:00 Dose: 1,000 mg Documented By: Admin: 10/24/24 02:16 Dose: 1,000 mg Documented By: Admin: 10/23/24 18:00 Dose: 1,000 mg Documented By: Admin: 10/23/24 09:45 Dose: 1,000 mg Documented By: SHAWNAC Acyclovir (Acyclovir 400 Mg Tab) 400 mg PO BID [place] Stop: 11/07/24 08:59 Last Admin: 10/26/24 08:09 Dose: 400 mg Documented By: Admin: 10/25/24 21:56 Dose: 400 mg Documented By: Admin: 10/25/24 07:39 Dose: 400 mg Documented By: Admin: 10/24/24 21:16 Dose: 400 mg Documented By: Admin: 10/24/24 07:28 Dose: 400 mg Documented By: Admin: 10/23/24 19:42 Dose: 400 mg Documented By: Admin: 10/23/24 09:39 Dose: 400 mg Documented By: Admin: 10/22/24 21:26 Dose: 400 mg Documented By: Admin: 10/22/24 09:14 Dose: 400 mg Documented By: beny Admin: 10/21/24 20:37 Dose: 400 mg Documented By: je Admin: 10/21/24 07:47 Dose: 400 mg Documented By: Admin: 10/20/24 21:38 Dose: 400 mg Documented By: Admin: 10/20/24 07:53 Dose: 400 mg Documented By: Admin: 10/19/24 21:58 Dose: 400 mg Documented By: Admin: 10/19/24 08:12 Dose: 400 mg Documented By: Admin: 10/18/24 21:46 Dose: 400 mg Documented By: snc Admin: 10/18/24 08:11 Dose: 400 mg Documented By: Admin: 10/17/24 21:50 Dose: 400 mg Documented By: snc Admin: 10/17/24 08:57 Dose: 400 mg Documented By: Admin: 10/16/24 20:38 Dose: 400 mg Documented By: Admin: 10/16/24 09:17 Dose: 400 mg Documented By: Admin: 10/15/24 21:03 Dose: 400 mg Documented By: rodriguez Admin: 10/15/24 09:44 Dose: 400 mg Documented By: Admin: 10/14/24 20:19 Dose: 400 mg Documented By: Admin: 10/14/24 09:59 Dose: Not Given Documented By: Admin: 10/13/24 20:17 Dose: 400 mg Documented By: Admin: 10/13/24 08:45 Dose: 400 mg Documented By: Admin: 10/12/24 20:21 Dose: 400 mg Documented By: Admin: 10/12/24 09:03 Dose: 400 mg Documented By: Admin: 10/11/24 21:38 Dose: 400 mg Documented By: Admin: 10/11/24 09:05 Dose: 400 mg Documented By: rhonda Admin: 10/10/24 21:08 Dose: 400 mg Documented By: Admin: 10/10/24 08:52 Dose: 400 mg Documented By: rhonda Admin: 10/09/24 20:22 Dose: 400 mg Documented By: Admin: 10/09/24 09:50 Dose: 400 mg Documented By: Admin: 10/08/24 20:37 Dose: 400 mg Documented By: Admin: 10/08/24 08:34 Dose: 400 mg Documented By: HUNTER Amlodipine Besylate (Amlodipine Besylate 5 Mg Tab) [facility] [place] [facility] [place]: 11/07/24 08:59 Last Admin: 10/26/24 08:09 Dose: 5 mg Documented By: Admin: 10/25/24 07:38 Dose: 5 mg Documented By: Admin: 10/24/24 07:28 Dose: 5 mg Documented By: Admin: 10/23/24 09:39 Dose: 5 mg Documented By: Admin: 10/22/24 09:15 Dose: 5 mg Documented By: beny Admin: 10/21/24 07:33 Dose: 5 mg Documented By: Admin: 10/20/24 07:53 Dose: 5 mg Documented By: Admin: 10/19/24 08:12 Dose: 5 mg Documented By: Admin: 10/18/24 08:11 Dose: 5 mg Documented By: Admin: 10/17/24 08:57 Dose: 5 mg Documented By: Admin: 10/16/24 09:18 Dose: 5 mg Documented By: Admin: 10/15/24 09:43 Dose: 5 mg Documented By: Admin: 10/14/24 12:56 Dose: 5 mg Documented By: Admin: 10/13/24 08:45 Dose: 5 mg Documented By: Admin: 10/12/24 09:03 Dose: 5 mg Documented By: Admin: 10/11/24 09:05 Dose: 5 mg Documented By: baljitk Admin: 10/10/24 08:52 Dose: 5 mg Documented By: cjk Admin: 10/09/24 09:51 Dose: 5 mg Documented By: Admin: 10/08/24 08:36 Dose: 5 mg Documented By: HUNTER Atorvastatin Calcium (Atorvastatin 20 Mg Tab) 20 mg PO HS [place] Stop: 11/07/24 20:59 Last Admin: 10/10/24 21:08 Dose: 20 mg Documented By: Admin: 10/09/24 20:22 Dose: 20 mg Documented By: Admin: 10/08/24 20:37 Dose: 20 mg Documented By: MARILEE Buspirone HCl (Buspirone 5 Mg Tab) 5 mg PO AMHS [place] Stop: 11/07/24 08:59 Last Admin: 10/26/24 08:09 Dose: 5 mg Documented By: Admin: 10/25/24 21:56 Dose: 5 mg Documented By: Admin: 10/25/24 07:39 Dose: 5 mg Documented By: K Admin: 10/24/24 21:16 Dose: 5 mg Documented By: Admin: 10/24/24 07:28 Dose: 5 mg Documented By: Admin: 10/23/24 19:40 Dose: 5 mg Documented By: Admin: 10/23/24 09:39 Dose: 5 mg Documented By: Admin: 10/22/24 21:27 Dose: 5 mg Documented By: Admin: 10/22/24 09:14 Dose: 5 mg Documented By: beny Admin: 10/21/24 20:37 Dose: 5 mg Documented By: je Admin: 10/21/24 07:34 Dose: 5 mg Documented By: Admin: 10/20/24 21:38 Dose: 5 mg Documented By: Admin: 10/20/24 07:53 Dose: 5 mg Documented By: Admin: 10/19/24 21:58 Dose: 5 mg Documented By: Admin: 10/19/24 08:13 Dose: 5 mg Documented By: Admin: 10/18/24 21:46 Dose: 5 mg Documented By: snc Admin: 10/18/24 08:11 Dose: 5 mg Documented By: Admin: 10/17/24 21:50 Dose: 5 mg Documented By: snc Admin: 10/17/24 08:57 Dose: 5 mg Documented By: Admin: 10/16/24 20:38 Dose: 5 mg Documented By: ALVic Admin: 10/16/24 09:13 Dose: 5 mg Documented By: Admin: 10/15/24 21:03 Dose: 5 mg Documented By: rodriguez Admin: 10/15/24 09:42 Dose: 5 mg Documented By: Admin: 10/14/24 20:19 Dose: 5 mg Documented By: Admin: 10/14/24 09:59 Dose: Not Given Documented By: Admin: 10/13/24 20:17 Dose: 5 mg Documented By: Admin: 10/13/24 08:45 Dose: 5 mg Documented By: Admin: 10/12/24 20:21 Dose: 5 mg Documented By: Admin: 10/12/24 09:02 Dose: 5 mg Documented By: Admin: 10/11/24 21:30 Dose: Not Given Documented By: Admin: 10/11/24 09:06 Dose: 5 mg Documented By: baljitk Admin: 10/10/24 20:57 Dose: Not Given Documented By: Admin: 10/10/24 08:52 Dose: 5 mg Documented By: cjk Admin: 10/09/24 20:22 Dose: 5 mg Documented By: KAJasmeet Admin: 10/09/24 09:52 Dose: 5 mg Documented By: Admin: 10/08/24 20:38 Dose: 5 mg Documented By: Admin: 10/08/24 08:36 Dose: 5 mg Documented By: HUNTER Citalopram Hydrobromide (Citalopram 20 Mg Tab) 10 mg PO QAM [place] Stop: 11/07/24 08:59 Last Admin: 10/26/24 08:09 Dose: 10 mg Documented By: K Admin: 10/25/24 07:39 Dose: 10 mg Documented By: Admin: 10/24/24 07:28 Dose: 10 mg Documented By: Admin: 10/23/24 09:39 Dose: 10 mg Documented By: Admin: 10/22/24 09:15 Dose: 10 mg Documented By: wnt Admin: 10/21/24 07:33 Dose: 10 mg Documented By: Admin: 10/20/24 07:53 Dose: 10 mg Documented By: Admin: 10/19/24 08:12 Dose: 10 mg Documented By: Admin: 10/18/24 08:12 Dose: 10 mg Documented By: Admin: 10/17/24 08:57 Dose: 10 mg Documented By: Admin: 10/16/24 09:18 Dose: 10 mg Documented By: Admin: 10/15/24 09:44 Dose: 10 mg Documented By: Admin: 10/14/24 12:55 Dose: 10 mg Documented By: Admin: 10/13/24 08:45 Dose: 10 mg Documented By: Admin: 10/12/24 09:02 Dose: 10 mg Documented By: Admin: 10/11/24 09:05 Dose: 10 mg Documented By: baljitk Admin: 10/10/24 08:52 Dose: 10 mg Documented By: baljitk Admin: 10/09/24 09:50 Dose: 10 mg Documented By: Admin: 10/08/24 08:34 Dose: 10 mg Documented By: HUNTER Cyanocobalamin (Cyanocobalamin (B-12) 500 Mcg Tablet) 1,000 mcg [facility] [place] [facility] [place] Stop: 11/21/24 09:59 Last Admin: 10/26/24 08:09 Dose: 1,000 mcg Documented By: Admin: 10/25/24 07:38 Dose: 1,000 mcg Documented By: K Admin: 10/24/24 07:29 Dose: 1,000 mcg Documented By: Admin: 10/23/24 09:40 Dose: 1,000 mcg Documented By: Admin: 10/22/24 11:48 Dose: Not Given Documented By: NISA Enoxaparin Sodium (Enoxaparin Inj 40 Mg/0.4 Ml Syr) 40 mg SQ Q24H [place] Stop: 11/07/24 08:59 Last Admin: 10/26/24 08:03 Dose: Not Given Documented By: Admin: 10/25/24 07:39 Dose: Not Given Documented By: Admin: 10/13/24 08:46 Dose: Not Given Documented By: Admin: 10/12/24 09:04 Dose: 40 mg Documented By: Admin: 10/11/24 09:06 Dose: 40 mg Documented By: rhonda Admin: 10/10/24 08:52 Dose: 40 mg Documented By: rhonda Admin: 10/09/24 09:51 Dose: 40 mg Documented By: Admin: 10/08/24 08:37 Dose: 40 mg Documented By: HUNTER Gabapentin (Gabapentin 100 Mg Cap) 100 mg PO BID [place] Stop: 11/07/24 08:59 Last Admin: 10/26/24 08:09 Dose: 100 mg Documented By: Admin: 10/25/24 21:56 Dose: 100 mg Documented By: Admin: 10/25/24 07:38 Dose: 100 mg Documented By: Admin: 10/24/24 21:17 Dose: 100 mg Documented By: Admin: 10/24/24 07:29 Dose: 100 mg Documented By: Admin: 10/23/24 19:41 Dose: 100 mg Documented By: Admin: 10/23/24 09:41 Dose: 100 mg Documented By: Admin: 10/22/24 21:27 Dose: 100 mg Documented By: Admin: 10/22/24 09:14 Dose: 100 mg Documented By: beny Admin: 10/21/24 20:37 Dose: 100 mg Documented By: je Admin: 10/21/24 07:34 Dose: 100 mg Documented By: Admin: 10/20/24 21:39 Dose: 100 mg Documented By: Admin: 10/20/24 07:53 Dose: 100 mg Documented By: Admin: 10/19/24 21:58 Dose: 100 mg Documented By: Admin: 10/19/24 08:13 Dose: 100 mg Documented By: Admin: 10/18/24 21:46 Dose: 100 mg Documented By: snc Admin: 10/18/24 08:12 Dose: 100 mg Documented By: Admin: 10/17/24 21:50 Dose: 100 mg Documented By: snc Admin: 10/17/24 08:56 Dose: 100 mg Documented By: Admin: 10/16/24 20:38 Dose: 100 mg Documented By: Admin: 10/16/24 09:13 Dose: 100 mg Documented By: Admin: 10/15/24 21:03 Dose: 100 mg Documented By: rodriguez Admin: 10/15/24 09:43 Dose: 100 mg Documented By: Admin: 10/14/24 20:19 Dose: 100 mg Documented By: Admin: 10/14/24 09:59 Dose: Not Given Documented By: Admin: 10/13/24 20:17 Dose: 100 mg Documented By: Admin: 10/13/24 08:44 Dose: 100 mg Documented By: Admin: 10/12/24 20:21 Dose: 100 mg Documented By: Admin: 10/12/24 09:03 Dose: 100 mg Documented By: Admin: 10/11/24 21:29 Dose: Not Given Documented By: Admin: 10/11/24 09:06 Dose: 100 mg Documented By: rhonda Admin: 10/10/24 20:58 Dose: Not Given Documented By: Admin: 10/10/24 08:52 Dose: 100 mg Documented By: baljitk Admin: 10/09/24 20:19 Dose: 100 mg Documented By: Admin: 10/09/24 09:52 Dose: 100 mg Documented By: Admin: 10/08/24 20:38 Dose: 100 mg Documented By: Admin: 10/08/24 08:35 Dose: 100 mg Documented By: HUNTER Heparin Sodium (Beef Lung) (Heparin 10 Unit/Ml 5 Ml Flush) 5 ml FLUSH PRN PRN PRN Reason: Flush Stop: 11/23/24 17:29 Last Admin: 10/26/24 08:08 Dose: 5 ml Documented By: K Admin: 10/25/24 22:00 Dose: 5 ml Documented By: Admin: 10/24/24 18:55 Dose: 5 ml Documented By: BRIANNA Heparin Sodium (Porcine) (Heparin 100 Unit/Ml 5ml Flush) 5 ml FLUSH PRN PRN PRN Reason: Flush Stop: 11/07/24 03:03 Last Admin: 10/23/24 19:43 Dose: 5 ml Documented By: Admin: 10/12/24 05:22 Dose: 5 ml Documented By: Admin: 10/09/24 10:11 Dose: 5 ml Documented By: ARTEMIO Hydromorphone HCl (Hydromorphone Inj 1 Mg/Ml Syringe) 0.5 mg IV Q6H PRN PRN Reason: Severe Pain (Scale 7, 8, 9,10) Stop: 11/05/24 04:14 Last Admin: 10/26/24 08:08 Dose: 0.5 mg Documented By: Admin: 10/26/24 01:13 Dose: 0.5 mg Documented By: Admin: 10/25/24 09:58 Dose: 0.5 mg Documented By: Admin: 10/24/24 21:18 Dose: 0.5 mg Documented By: Admin: 10/23/24 23:16 Dose: 0.5 mg Documented By: NESTOR Promethazine HCl (Phenergan) 6.25 mg in 50.25 mls @ 201 mls/hr IV Q6H PRN PRN Reason: Nausea And Vomiting Stop: 11/08/24 08:11 Last Infusion: 10/25/24 22:06 Dose: Infused Documented By: Admin: 10/25/24 21:51 Dose: 201 mls/hr Documented By: Infusion: 10/24/24 21:56 Dose: Infused Documented By: Admin: 10/24/24 21:41 Dose: 201 mls/hr Documented By: Infusion: 10/11/24 08:20 Dose: Infused Documented By: rhonda Admin: 10/11/24 08:04 Dose: 201 mls/hr Documented By: rhonda Infusion: 10/10/24 09:27 Dose: Infused Documented By: rhonda Admin: 10/10/24 07:56 Dose: 201 mls/hr Documented By: rhonda Infusion: 10/09/24 10:19 Dose: Infused Documented By: Admin: 10/09/24 09:35 Dose: 201 mls/hr Documented By: ARTEMIO Vancomycin HCl (Vancomycin Hcl / Nss) 1,000 mg in 270 mls @ 200 mls/hr IV Q12H [place] Stop: 12/03/24 16:59 Last Infusion: 10/26/24 06:54 Dose: Infused Documented By: Admin: 10/26/24 05:33 Dose: 200 mls/hr Documented By: Infusion: 10/25/24 19:08 Dose: Infused Documented By: Admin: 10/25/24 17:16 Dose: 200 mls/hr Documented By: Infusion: 10/25/24 07:19 Dose: Infused Documented By: Admin: 10/25/24 05:39 Dose: 200 mls/hr Documented By: Infusion: 10/24/24 18:51 Dose: Infused Documented By: Admin: 10/24/24 17:30 Dose: 200 mls/hr Documented By: BRIANNA Insulin Aspart (Insulin Aspart Per Unit Charge) 0 units SC ACHS [place] Stop: 11/13/24 05:59 Last Admin: 10/26/24 11:58 Dose: Not Given Documented By: Admin: 10/26/24 07:37 Dose: Not Given Documented By: K Admin: 10/25/24 21:03 Dose: Not Given Documented By: Admin: 10/25/24 16:49 Dose: Not Given Documented By: Admin: 10/25/24 11:59 Dose: Not Given Documented By: Admin: 10/25/24 08:31 Dose: Not Given Documented By: Admin: 10/24/24 20:58 Dose: Not Given Documented By: Admin: 10/24/24 17:31 Dose: Not Given Documented By: SHAWNAC Co-signed By: BECCA Admin: 10/24/24 12:26 Dose: Not Given Documented By: LMC Co-signed By: BECCA Admin: 10/24/24 07:33 Dose: Not Given Documented By: LMC Co-signed By: BALJINDER Admin: 10/23/24 20:29 Dose: Not Given Documented By: Admin: 10/23/24 16:37 Dose: Not Given Documented By: LMC Co-signed By: MRE Admin: 10/23/24 11:42 Dose: Not Given Documented By: LMC Co-signed By: ASIF Admin: 10/23/24 08:27 Dose: Not Given Documented By: LMC Co-signed By: MPS Admin: 10/22/24 21:19 Dose: Not Given Documented By: HKY Co-signed By: MLM Admin: 10/22/24 17:22 Dose: Not Given Documented By: Admin: 10/22/24 11:36 Dose: Not Given Documented By: KER Co-signed By: wnt Admin: 10/22/24 09:12 Dose: Not Given Documented By: wnt Co-signed By: KER Admin: 10/21/24 20:38 Dose: Not Given Documented By: je Co-signed By: HLJ Admin: 10/21/24 16:44 Dose: Not Given Documented By: Admin: 10/21/24 11:36 Dose: Not Given Documented By: Admin: 10/21/24 07:32 Dose: Not Given Documented By: Admin: 10/20/24 20:41 Dose: Not Given Documented By: Admin: 10/20/24 16:47 Dose: Not Given Documented By: Admin: 10/20/24 11:42 Dose: Not Given Documented By: Admin: 10/20/24 07:46 Dose: Not Given Documented By: Admin: 10/19/24 21:15 Dose: Not Given Documented By: Admin: 10/19/24 17:23 Dose: Not Given Documented By: LMC Co-signed By: AA Admin: 10/19/24 12:32 Dose: Not Given Documented By: LMC Co-signed By: AA Admin: 10/19/24 07:41 Dose: Not Given Documented By: LMC Co-signed By: AA Admin: 10/18/24 21:15 Dose: Not Given Documented By: snc Co-signed By: ANS Admin: 10/18/24 17:04 Dose: Not Given Documented By: LMC Co-signed By: AAH Admin: 10/18/24 11:58 Dose: Not Given Documented By: LMC Co-signed By: CSE Admin: 10/18/24 08:18 Dose: Not Given Documented By: LMC Co-signed By: VGS Admin: 10/17/24 21:36 Dose: Not Given Documented By: Admin: 10/17/24 17:45 Dose: Not Given Documented By: Admin: 10/17/24 12:08 Dose: Not Given Documented By: Admin: 10/17/24 08:58 Dose: Not Given Documented By: Admin: 10/16/24 20:46 Dose: Not Given Documented By: Admin: 10/16/24 17:06 Dose: Not Given Documented By: Admin: 10/16/24 12:00 Dose: Not Given Documented By: Admin: 10/16/24 09:14 Dose: Not Given Documented By: Admin: 10/15/24 21:06 Dose: Not Given Documented By: rodriguez Co-signed By: TERI Admin: 10/15/24 17:11 Dose: Not Given Documented By: JOSEPHINE Co-signed By: BECCA Admin: 10/15/24 11:33 Dose: Not Given Documented By: JOSEPHINE Co-signed By: BERTRAND Admin: 10/15/24 09:14 Dose: Not Given Documented By: JOSEPHINE Co-signed By: PIERRE Admin: 10/14/24 20:39 Dose: Not Given Documented By: Admin: 10/14/24 16:50 Dose: Not Given Documented By: JACK Lactobacillus Acidophilus (Advanced Probiotic 625 Mg Capsule) 1,250 mg PO DAILY [place] Stop: 11/09/24 08:59 Last Admin: 10/26/24 08:09 Dose: 1,250 mg Documented By: Admin: 10/25/24 07:38 Dose: 1,250 mg Documented By: Admin: 10/24/24 07:29 Dose: 1,250 mg Documented By: Admin: 10/23/24 09:41 Dose: 1,250 mg Documented By: Admin: 10/22/24 09:14 Dose: 1,250 mg Documented By: wnt Admin: 10/21/24 07:34 Dose: 1,250 mg Documented By: Admin: 10/20/24 07:53 Dose: 1,250 mg Documented By: Admin: 10/19/24 08:13 Dose: 1,250 mg Documented By: Admin: 10/18/24 08:12 Dose: 1,250 mg Documented By: Admin: 10/17/24 08:57 Dose: 1,250 mg Documented By: Admin: 10/16/24 12:23 Dose: Not Given Documented By: Admin: 10/15/24 09:43 Dose: 1,250 mg Documented By: Admin: 10/14/24 12:55 Dose: 1,250 mg Documented By: Admin: 10/13/24 08:44 Dose: 1,250 mg Documented By: Admin: 10/12/24 09:02 Dose: 1,250 mg Documented By: Admin: 10/11/24 09:06 Dose: 1,250 mg Documented By: [email or web address] Admin: 10/10/24 08:52 Dose: 1,250 mg Documented By: [email or web address] Levofloxacin (Levofloxacin 500 Mg Tab) [facility] [place] [facility] [place] Protocol Stop: 11/07/24 08:59 Last Admin: 10/14/24 12:57 Dose: 500 mg Documented By: Admin: 10/13/24 08:44 Dose: 500 mg Documented By: Admin: 10/12/24 09:02 Dose: 500 mg Documented By: Admin: 10/11/24 09:06 Dose: 500 mg Documented By: rhonda Admin: 10/10/24 08:52 Dose: 500 mg Documented By: rhonda Admin: 10/09/24 09:54 Dose: 500 mg Documented By: Admin: 10/08/24 08:36 Dose: 500 mg Documented By: HUNTER Lidocaine (Lidocaine 5% 1 Patch) 1 [facility] [place] [facility] [place] Stop: 11/07/24 08:59 Last Admin: 10/26/24 08:10 Dose: 1 patch Documented By: Admin: 10/25/24 07:39 Dose: 1 patch Documented By: Admin: 10/24/24 07:29 Dose: 1 patch Documented By: Admin: 10/23/24 09:41 Dose: 1 patch Documented By: Admin: 10/22/24 09:19 Dose: 1 patch Documented By: beny Admin: 10/21/24 07:35 Dose: 1 patch Documented By: Admin: 10/20/24 08:00 Dose: 1 patch Documented By: Admin: 10/19/24 08:13 Dose: Not Given Documented By: Admin: 10/18/24 08:12 Dose: Not Given Documented By: Admin: 10/17/24 09:00 Dose: Not Given Documented By: Admin: 10/16/24 17:08 Dose: Not Given Documented By: Admin: 10/15/24 10:23 Dose: Not Given Documented By: DMPrasanth Admin: 10/14/24 12:12 Dose: Not Given Documented By: Admin: 10/13/24 08:46 Dose: Not Given Documented By: Admin: 10/12/24 09:04 Dose: 1 patch Documented By: Admin: 10/11/24 09:26 Dose: Not Given Documented By: rhonda Admin: 10/10/24 08:53 Dose: 1 patch Documented By: rhonda Admin: 10/09/24 12:52 Dose: 1 patch Documented By: Admin: 10/08/24 08:36 Dose: 1 patch Documented By: SLPrasanth Melatonin (Melatonin 3 Mg Tab) 3 mg PO HS PRN PRN Reason: Insomnia Stop: 11/07/24 03:07 Last Admin: 10/25/24 22:00 Dose: 3 mg Documented By: Admin: 10/24/24 21:17 Dose: 3 mg Documented By: Admin: 10/23/24 19:41 Dose: 3 mg Documented By: Admin: 10/22/24 21:25 Dose: 3 mg Documented By: Admin: 10/20/24 21:39 Dose: 3 mg Documented By: Admin: 10/19/24 21:58 Dose: 3 mg Documented By: Admin: 10/18/24 21:46 Dose: 3 mg Documented By: kerry Admin: 10/17/24 21:48 Dose: 3 mg Documented By: kerry Admin: 10/16/24 22:47 Dose: 3 mg Documented By: MARILOU Miscellaneous (Remove Lidoderm Patch) 1 each N/A DAILY@2100 [place] Stop: 11/07/24 20:59 Last Admin: 10/25/24 21:56 Dose: 1 each Documented By: Admin: 10/24/24 21:17 Dose: 1 each Documented By: Admin: 10/23/24 19:44 Dose: 1 each Documented By: Admin: 10/22/24 21:27 Dose: 1 each Documented By: [email or web address] Admin: 10/21/24 22:01 Dose: Not Given Documented By: je Admin: 10/20/24 21:46 Dose: 1 each Documented By: Admin: 10/19/24 21:58 Dose: 1 each Documented By: Admin: 10/18/24 22:29 Dose: Not Given Documented By: snc Admin: 10/17/24 21:07 Dose: Not Given Documented By: Admin: 10/16/24 20:39 Dose: 1 each Documented By: Admin: 10/15/24 21:19 Dose: Not Given Documented By: [email or web address] Admin: 10/14/24 20:39 Dose: Not Given Documented By: Admin: 10/13/24 20:17 Dose: Not Given Documented By: Admin: 10/12/24 20:27 Dose: Not Given Documented By: Admin: 10/11/24 21:34 Dose: 1 each Documented By: Admin: 10/10/24 21:08 Dose: 1 each Documented By: Admin: 10/09/24 20:22 Dose: 1 each Documented By: Admin: 10/08/24 20:40 Dose: 1 each Documented By: MARILEE Oxycodone HCl (Oxycodone Hcl Ir 5 Mg Tab (Immediate Release)) 5 mg PO Q6H PRN PRN Reason: Mod-Sev Pain (Scale 4-10) Stop: 11/05/24 04:14 Last Admin: 10/26/24 06:10 Dose: 5 mg Documented By: Admin: 10/25/24 21:59 Dose: 5 mg Documented By: Admin: 10/25/24 07:37 Dose: 5 mg Documented By: Admin: 10/25/24 01:00 Dose: 5 mg Documented By: Admin: 10/24/24 17:30 Dose: 5 mg Documented By: Admin: 10/24/24 07:30 Dose: 5 mg Documented By: Admin: 10/24/24 02:16 Dose: 5 mg Documented By: Admin: 10/23/24 19:41 Dose: 5 mg Documented By: Admin: 10/23/24 03:17 Dose: 5 mg Documented By: Admin: 10/22/24 09:22 Dose: 5 mg Documented By: beny Polyethylene Glycol (Polyethylene (Miralax) 17 Gm Pack) 17 gm PO QAM [facility] Stop: 11/19/24 08:59 Last Admin: 10/26/24 08:03 Dose: Not Given Documented By: Admin: 10/25/24 07:46 Dose: Not Given Documented By: Admin: 10/24/24 07:30 Dose: 17 gm Documented By: Admin: 10/23/24 09:41 Dose: 17 gm Documented By: Admin: 10/22/24 09:23 Dose: 17 gm Documented By: wnt Admin: 10/21/24 07:35 Dose: Not Given Documented By: Admin: 10/20/24 07:52 Dose: 17 gm Documented By: AV Potassium Chloride (Potassium Chloride 10 Meq Tabcr) 40 meq PO BID [place] Stop: 11/11/24 08:59 Last Admin: 10/26/24 08:09 Dose: 40 meq Documented By: Admin: 10/25/24 21:59 Dose: 40 meq Documented By: Admin: 10/25/24 07:38 Dose: 40 meq Documented By: Admin: 10/24/24 21:17 Dose: 40 meq Documented By: Admin: 10/24/24 07:30 Dose: 40 meq Documented By: Admin: 10/23/24 19:41 Dose: 40 meq Documented By: Admin: 10/23/24 09:41 Dose: 40 meq Documented By: Admin: 10/22/24 21:28 Dose: 40 meq Documented By: Admin: 10/22/24 09:13 Dose: 40 meq Documented By: beny Admin: 10/21/24 20:36 Dose: 40 meq Documented By: je Admin: 10/21/24 07:43 Dose: 40 meq Documented By: Admin: 10/20/24 21:39 Dose: 40 meq Documented By: Admin: 10/20/24 07:52 Dose: 40 meq Documented By: Admin: 10/19/24 21:58 Dose: 40 meq Documented By: Admin: 10/19/24 08:13 Dose: 40 meq Documented By: Admin: 10/17/24 21:51 Dose: 40 meq Documented By: snc Admin: 10/17/24 09:03 Dose: 40 meq Documented By: Admin: 10/16/24 20:40 Dose: 40 meq Documented By: Admin: 10/16/24 09:17 Dose: 40 meq Documented By: Admin: 10/15/24 21:02 Dose: 40 meq Documented By: [email or web address] Admin: 10/15/24 09:45 Dose: 40 meq Documented By: Admin: 10/14/24 20:19 Dose: 40 meq Documented By: Admin: 10/14/24 09:59 Dose: Not Given Documented By: Admin: 10/13/24 20:17 Dose: 40 meq Documented By: Admin: 10/13/24 08:43 Dose: 40 meq Documented By: Admin: 10/12/24 20:21 Dose: 40 meq Documented By: Admin: 10/12/24 09:00 Dose: 40 meq Documented By: LINO Senna/Docusate Sodium (Docusate Sodium/Senna 50/8.6mg Tab) 1 tab PO BID [place] Stop: 11/07/24 08:59 Last Admin: 10/26/24 08:02 Dose: Not Given Documented By: Admin: 10/25/24 22:00 Dose: 1 tab Documented By: Admin: 10/25/24 07:38 Dose: 1 tab Documented By: Admin: 10/24/24 21:17 Dose: 1 tab Documented By: Admin: 10/24/24 07:29 Dose: 1 tab Documented By: Admin: 10/23/24 19:40 Dose: 1 tab Documented By: Admin: 10/23/24 09:40 Dose: 1 tab Documented By: Admin: 10/22/24 21:25 Dose: 1 tab Documented By: Admin: 10/22/24 09:27 Dose: Not Given Documented By: beny Admin: 10/21/24 20:37 Dose: 1 tab Documented By: je Admin: 10/21/24 07:44 Dose: 1 tab Documented By: Admin: 10/20/24 21:40 Dose: 1 tab Documented By: Admin: 10/20/24 07:52 Dose: 1 tab Documented By: Admin: 10/19/24 21:58 Dose: 1 tab Documented By: Admin: 10/19/24 08:14 Dose: 1 tab Documented By: Admin: 10/18/24 21:42 Dose: Not Given Documented By: snc Admin: 10/18/24 08:12 Dose: Not Given Documented By: Admin: 10/17/24 21:51 Dose: Not Given Documented By: snc Admin: 10/17/24 09:00 Dose: Not Given Documented By: Admin: 10/16/24 20:38 Dose: 1 tab Documented By: Admin: 10/16/24 12:23 Dose: Not Given Documented By: Admin: 10/15/24 21:19 Dose: Not Given Documented By: rodriguez Admin: 10/15/24 09:42 Dose: Not Given Documented By: DMPrasanth Admin: 10/14/24 20:19 Dose: Not Given Documented By: Admin: 10/14/24 09:59 Dose: Not Given Documented By: Admin: 10/13/24 20:17 Dose: 1 tab Documented By: Admin: 10/13/24 08:44 Dose: 1 tab Documented By: Admin: 10/12/24 20:21 Dose: 1 tab Documented By: Admin: 10/12/24 09:00 Dose: 1 tab Documented By: Admin: 10/11/24 21:39 Dose: Not Given Documented By: Admin: 10/11/24 07:57 Dose: Not Given Documented By: rhonda Admin: 10/10/24 20:36 Dose: Not Given Documented By: Admin: 10/10/24 08:52 Dose: 1 tab Documented By: rhonda Admin: 10/09/24 20:18 Dose: 1 tab Documented By: Admin: 10/09/24 10:11 Dose: 1 tab Documented By: Admin: 10/08/24 20:37 Dose: 1 tab Documented By: Admin: 10/08/24 08:43 Dose: 1 tab Documented By: HUNTER Voriconazole (Voriconazole 200 Mg Tablet) 200 mg PO Q12 [place] Stop: 11/07/24 08:59 Last Admin: 10/26/24 08:10 Dose: 200 mg Documented By: Admin: 10/25/24 21:55 Dose: 200 mg Documented By: Admin: 10/25/24 07:38 Dose: 200 mg Documented By: Admin: 10/24/24 21:17 Dose: 200 mg Documented By: Admin: 10/24/24 07:30 Dose: 200 mg Documented By: Admin: 10/23/24 19:42 Dose: 200 mg Documented By: Admin: 10/23/24 09:41 Dose: 200 mg Documented By: Admin: 10/22/24 21:27 Dose: 200 mg Documented By: Admin: 10/22/24 09:15 Dose: 200 mg Documented By: beny Admin: 10/21/24 20:36 Dose: 200 mg Documented By: je Admin: 10/21/24 07:35 Dose: 200 mg Documented By: Admin: 10/20/24 21:39 Dose: 200 mg Documented By: Admin: 10/20/24 07:59 Dose: 200 mg Documented By: Admin: 10/19/24 21:58 Dose: 200 mg Documented By: Admin: 10/19/24 08:12 Dose: 200 mg Documented By: Admin: 10/18/24 21:46 Dose: 200 mg Documented By: snc Admin: 10/18/24 08:13 Dose: 200 mg Documented By: Admin: 10/17/24 21:50 Dose: 200 mg Documented By: snc Admin: 10/17/24 08:56 Dose: 200 mg Documented By: Admin: 10/16/24 20:41 Dose: 200 mg Documented By: Admin: 10/16/24 09:12 Dose: 200 mg Documented By: Admin: 10/15/24 21:24 Dose: 200 mg Documented By: ksy Admin: 10/15/24 09:46 Dose: 200 mg Documented By: Admin: 10/14/24 20:19 Dose: 200 mg Documented By: Admin: 10/14/24 12:55 Dose: 200 mg Documented By: Admin: 10/13/24 20:17 Dose: 200 mg Documented By: Admin: 10/13/24 08:44 Dose: 200 mg Documented By: Admin: 10/12/24 20:21 Dose: 200 mg Documented By: Admin: 10/12/24 09:02 Dose: 200 mg Documented By: Admin: 10/11/24 21:38 Dose: 200 mg Documented By: Admin: 10/11/24 09:06 Dose: 200 mg Documented By: rhonda Admin: 10/10/24 21:07 Dose: 200 mg Documented By: Admin: 10/10/24 08:52 Dose: 200 mg Documented By: rhonda Admin: 10/09/24 20:22 Dose: 200 mg Documented By: Admin: 08/21/25 09:52 Dose: 200 mg Documented By: Admin: 10/08/24 20:38 Dose: 200 mg Documented By: Admin: 10/08/24 08:35 Dose: 200 mg Documented By: HUNTER Coding [place] [address] IN/OBS CONSULT LVL 5,80M Patient Type Established History Detailed Exam Detailed Medical Decision Making High Complexity Diagnoses Anxiety and depression F41.9; F32.A Poor appetite R63.0 Generalized anxiety disorder F41.1 Severe back pain M54.9 Compression fracture of lumbar vertebra S32.000A
--- NOTE | 2024-10-26 15:23 | Hospitalist Progress Note ---
Date of Service October 26, 2024 Assessment & Plan (1) Severe back pain: Plan: (1) Severe back pain: Plan: 79 yo F with type 2 diabetes, dyslipidemia, paroxysmal SVT, hypertension, GERD, osteoarthritis of both knees, AML, generalized anxiety disorder, spinal stenosis of lumbar region, persistent insomnia who was recently in the hospital for lumbar spine compression fracture and discharged to rehab comes back with severe back pain. Patient states at rehab she was having a lot of constipation and stool softeners were given since then she had a lot of back pain. The stool softeners relieved her constipation but the back pain got worse. She could not tolerate the back pain this reason she was came to the hospital today. She thinks she might had fever. Denies any bowel incontinence. She says sometimes she gets bladder incontinence but it is nothing new. Pain is not shooting down the legs. Ambulating with a walker but now the pain got worse. Denies any chest pain. No shortness of breath. No cough. No headache. No runny nose or sore throat. No difficulty swallowing. Last couple of days appetite is down. Last chemo was in August. She was supposed to get chemo on 09/29/2024 but because she is rehab it was held. Currently while resting seems comfortable and hemodynamics are okay. Severe back pain L1 and L3 compression fractures Staph epidermidis bacteremia Bilateral iliopsoas muscle fluid collections, likely infected Coming from rehab CT scan done in the ER shows same L1 L3 compression fractures patient's back pain not responding with pain management Discussed with Dr. Bergman (orthospine) In light of possible bacteremia, recommend repeat MRI of the spine Continue pain control, PT OT 10/12 MRI Lumbar spine reviewed: + fluid collections, edema iliopsoas, bilateral, likely infected Discussed with Dr. Bergman, agree with possible infected fluid collections around the lumbar spine Broaden antibiotic coverage with Zosyn in addition to daptomycin 10/[address] Bergman, recommend IR drainage of fluid collection in the lumbar spine Discussed with SARAH Rodriguez, IR drainage performed 10/16 Fluid drainage culture: positive for Staph epi - contacted ID - recommend to switch to vancomycin dose for poss. meningitis - discussed w/ pharmacy. dapto stopped, also zosyn to be stopped Dr. Bergman also updated - discussed with - no surgical intervention recommended further recommendations as per Dr. Bergman and ID Per ID Please continue on IV vancomycin to be adjusted based on vancomycin trough/AUC. She will require at least 6 to 8 weeks of IV antibiotics. I would also recommend repeating the MRI of the lumbar spine towards the end of treatment course. We would appreciate further assessment by the spine surgery for possible surgical intervention. Called lab to get sensitivities from [facility] obtained - sensitivities are back -> contacted ID - they plan to leave an updated note. Also discussed PICC line with ID and with the pt. Final ID recommendation pending 10/23 Final ID service recommendations: Patient admitted at [facility]: Since the spine surgical team is not planning for any surgical intervention, I would recommend continuing on IV vancomycin to complete a course of 8 weeks with anticipated end date of December 03, 2024. We will repeat MRI of the spine in 6 weeks from today. 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 MicrobiologyStaphylococcus epidermidis AntibioticVancomycin Dose per Pharmacy for Goal AUC 400-600 mg/L/hr End DateDec 03, 2024 Vascular access: Do not remove PICC line until the infectious disease physician approves Recommended followup imaging studies: MRI lumbar spine (Ordered by me in txtr system) LABORATORY MONITORING: Lab TestFrequencyEnd Date BMP CBC with diff Vancomycin level(s) for AUC monitoringQ weekDec 03, 2024 PROVIDERS: Following ID PhysicianID clinic follow-up date José Manuel Magaña weeks Patient having severe back pain today Add Tylenol 1 g 3 times daily scheduled Patient also having confusion likely secondary to delirium, possible hospital delirium, medication related DC Ativan Lower dose of Dilaudid IV Delirium prevention strategies Discussed with RN 10/24 Patient now oriented, answering questions appropriately Continue as needed pain medications Back pain improving Continue IV vancomycin IV team followed up for PICC line placement 10/25 having mostly buttock pain and bilateral inguinal pain today with movement repeat MRI tomorrow 10/26 MRI Lumbar spine ordered Staph epidermidis bacteremia Initial blood culture (10/07): Staph epidermidis 1 out of 2 bottles Repeat blood cultures (10/10): Staph epidermidis 1 out of 2 bottles Echocardiogram: No mention of possible vegetation ID service recommends removal of indwelling port, port removed on 10/14 third set of blood cultures (10/15): NEGATIVE Lower abdominal Discomfort UA: Negative for UTI KUB: No obstruction, minimal fecal load -- resolved Hypokalemia replace and monitor AML undergoing chemotherapy History of pancytopenia WBC 6.5. Hemoglobin 10.1. Platelets 340 Currently undergoing monthly chemotherapy with decitabine/venetoclax Last chemo was in August. This month chemo was delayed because patient was in rehab Has appointment with Dr. Gaines on 10/29/2024 per last admission Continue suppressive antibiotics Levaquin, voriconazole and acyclovir 10/14 CBC stable Discussed with Dr. Gaines, patient is in remission from AML according to her she agrees with a port removal discussion of further chemotherapy with patient and family after patient recovers from this episode 10/[address] Gaines may DC prophylactic Levaquin but continue acyclovir Hypertension On amlodipine Last admit amlodipine was held for soft blood pressures Continue amlodipine for now. On furosemide with potassium supplements -- hold Lasix for now as patient is on the dry side Hyperlipidemia On statin Anxiety/depression On citalopram and buspirone -- Psych service consulted commend to DC buspirone, increase citalopram, start mirtazapine Diabetes Diet controlled current HbA1c levels: 6.4 Sliding scale for now Recent A port placement supposed to followup with general surgery for evaluation Gen Surg consulted -- (+) bacteremia -- ID service consulted, recommend removal of port A-port removed 10/14/2024 DVT prophylaxis Lovenox Disposition Med Surg Full Code Disposition pending Admission and Anticipated Discharge Date Admission Date: October 08, 2024 Subjective patient was talking to Psych C when first attempted to see her in AM spoke with daughter Shanna at bedside resting in bed, sleeping Review of Systems Review of Systems: all noted and negative except for above Physical Exam Physical Exam: patient sleeping Results & Data Results & Data Vital Signs (Past 12 Hours) Vital Signs Temp Pulse Resp BP Pulse Ox O2 Del Method 10/26/24 14:47 36.8 C 102 H 16 130/85 94 Room Air 10/26/24 07:20 36.8 C 96 H 16 130/76 92 Room Air all noted and reviewed including below
[2024-10-26] MEDS ORDERED: HYDROmorphone INJ 0.5 MG/0.5 ML SYR IV PRN (19:20)
[2024-10-26] MEDS ORDERED: HYDROmorphone INJ 1 MG/ML SYRINGE IV PRN (21:00)
[2024-10-26] MEDS: MIRTAZAPINE TAB 15 MG TAB PO SCH (21:09)
[2024-10-26] MEDS: HYDROmorphone INJ 0.5 MG/0.5 ML SYR IV PRN (22:45)
[2024-10-27] MEDS: ONDANSETRON INJ 2 MG/ML 2 ML VIAL IV STA (02:19)
[2024-10-27] MEDS: VANCOMYCIN LEVEL ONE (05:43)
[2024-10-27 06:13] LABS: Anion Gap 11.0 (3-11); Blood Urea Nitrogen 11.0 mg/dl (6-23); Calcium 8.9 mg/dl (8.6-10.3); Carbon Dioxide 22.0 mmol/L (21-32); Chloride 104.0 mmol/L (98-107); Creatinine Clr Calc Pharmacy 118.1 ml/min; Glucose 81.0 mg/dl (70-99(Fasting)); Potassium 4.5 mmol/L (3.5-5.1); Sodium 137.0 mmol/L (136-145)
[2024-10-27] MEDS: CITALOPRAM 20 MG TAB PO SCH (09:28)
--- NOTE | 2024-10-27 10:20 | Hospitalist Progress Note ---
Date of Service October 27, 2024 Assessment & Plan (1) Severe back pain: Plan: (1) Severe back pain: Plan: 79 yo F with type 2 diabetes, dyslipidemia, paroxysmal SVT, hypertension, GERD, osteoarthritis of both knees, AML, generalized anxiety disorder, spinal stenosis of lumbar region, persistent insomnia who was recently in the hospital for lumbar spine compression fracture and discharged to rehab comes back with severe back pain. Patient states at rehab she was having a lot of constipation and stool softeners were given since then she had a lot of back pain. The stool softeners relieved her constipation but the back pain got worse. She could not tolerate the back pain this reason she was came to the hospital today. She thinks she might had fever. Denies any bowel incontinence. She says sometimes she gets bladder incontinence but it is nothing new. Pain is not shooting down the legs. Ambulating with a walker but now the pain got worse. Denies any chest pain. No shortness of breath. No cough. No headache. No runny nose or sore throat. No difficulty swallowing. Last couple of days appetite is down. Last chemo was in August. She was supposed to get chemo on 09/29/2024 but because she is rehab it was held. Currently while resting seems comfortable and hemodynamics are okay. Severe back pain L1 and L3 compression fractures Staph epidermidis bacteremia Bilateral iliopsoas muscle fluid collections, likely infected Coming from rehab CT scan done in the ER shows same L1 L3 compression fractures patient's back pain not responding with pain management Discussed with Dr. Bergman (orthospine) In light of possible bacteremia, recommend repeat MRI of the spine Continue pain control, PT OT 10/12 MRI Lumbar spine reviewed: + fluid collections, edema iliopsoas, bilateral, likely infected Discussed with Dr. Bergman, agree with possible infected fluid collections around the lumbar spine Broaden antibiotic coverage with Zosyn in addition to daptomycin 10/[address] Bergman, recommend IR drainage of fluid collection in the lumbar spine Discussed with SARAH Rodriguez, IR drainage performed 10/16 Fluid drainage culture: positive for Staph epi - contacted ID - recommend to switch to vancomycin dose for poss. meningitis - discussed w/ pharmacy. dapto stopped, also zosyn to be stopped Dr. Bergman also updated - discussed with - no surgical intervention recommended further recommendations as per Dr. Bergman and ID Per ID Please continue on IV vancomycin to be adjusted based on vancomycin trough/AUC. She will require at least 6 to 8 weeks of IV antibiotics. I would also recommend repeating the MRI of the lumbar spine towards the end of treatment course. We would appreciate further assessment by the spine surgery for possible surgical intervention. Called lab to get sensitivities from [facility] obtained - sensitivities are back -> contacted ID - they plan to leave an updated note. Also discussed PICC line with ID and with the pt. Final ID recommendation pending 10/23 Final ID service recommendations: Patient admitted at [facility]: Since the spine surgical team is not planning for any surgical intervention, I would recommend continuing on IV vancomycin to complete a course of 8 weeks with anticipated end date of December 03, 2024. We will repeat MRI of the spine in 6 weeks from today. 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 MicrobiologyStaphylococcus epidermidis AntibioticVancomycin Dose per Pharmacy for Goal AUC 400-600 mg/L/hr End DateDec 03, 2024 Vascular access: Do not remove PICC line until the infectious disease physician approves Recommended followup imaging studies: MRI lumbar spine (Ordered by me in [employer] system) LABORATORY MONITORING: Lab TestFrequencyEnd Date BMP CBC with diff Vancomycin level(s) for AUC monitoringQ weekDec 03, 2024 PROVIDERS: Following ID PhysicianID clinic follow-up date José Manuel Magaña weeks Patient having severe back pain today Add Tylenol 1 g 3 times daily scheduled Patient also having confusion likely secondary to delirium, possible hospital delirium, medication related DC Ativan Lower dose of Dilaudid IV Delirium prevention strategies Discussed with RN 10/24 Patient now oriented, answering questions appropriately Continue as needed pain medications Back pain improving Continue IV vancomycin IV team followed up for PICC line placement 10/25 having mostly buttock pain and bilateral inguinal pain today with movement repeat MRI tomorrow 10/26 MRI Lumbar spine ordered 10/27 Back pain seems to be improving today Patient would like to hold off on lumbar spine MRI Will continue to monitor for now Continue scheduled Tylenol, IV Dilaudid and oxycodone as needed Palliative service consulted for goals of care also for input regarding pain management Continue IV vancomycin until middle november via PICC line Staph epidermidis bacteremia Initial blood culture (10/07): Staph epidermidis 1 out of 2 bottles Repeat blood cultures (10/10): Staph epidermidis 1 out of 2 bottles Echocardiogram: No mention of possible vegetation ID service recommends removal of indwelling port, port removed on 10/14 third set of blood cultures (10/15): NEGATIVE Lower abdominal Discomfort UA: Negative for UTI KUB: No obstruction, minimal fecal load -- resolved Hypokalemia replace and monitor AML undergoing chemotherapy History of pancytopenia WBC 6.5. Hemoglobin 10.1. Platelets 340 Currently undergoing monthly chemotherapy with decitabine/venetoclax Last chemo was in August. This month chemo was delayed because patient was in rehab Has appointment with Dr. Gaines on 10/29/2024 per last admission Continue suppressive antibiotics Levaquin, voriconazole and acyclovir 10/14 CBC stable Discussed with Dr. Gaines, patient is in remission from AML according to her she agrees with a port removal discussion of further chemotherapy with patient and family after patient bhavik vers from this episode 10/[address] Gaines may DC prophylactic Levaquin but continue acyclovir Hypertension On amlodipine Last admit amlodipine was held for soft blood pressures Continue amlodipine for now. On furosemide with potassium supplements -- hold Lasix for now as patient is on the dry side Hyperlipidemia On statin Anxiety/depression On citalopram and buspirone -- Psych service consulted recommend to DC buspirone, increase citalopram, start mirtazapine --seems to be in good spirits today Continue to monitor closely Diabetes Diet controlled current HbA1c levels: 6.4 Sliding scale for now Recent A port placement supposed to followup with general surgery for evaluation Gen Surg consulted -- (+) bacteremia -- ID service consulted, recommend removal of port A-port removed 10/14/2024 DVT prophylaxis Lovenox Disposition Med Surg Full Code Disposition pending Admission and Anticipated Discharge Date Admission Date: October 08, 2024 Subjective seen resting in bed, comfortable, not in distress States back pain is improved today Able to stand up and walk to the bathroom better today No shortness of breath, chest pain Has been some nausea today No abdominal pain No fevers or chills No other new symptoms Review of Systems Review of Systems: all noted and negative except for above Physical Exam Physical Exam: General- oriented x 3, not in distress, speaks in sentences with no effort or accessory muscle use Eyes- anicteric Neck- no JVD Lungs- clear breath sounds bilaterally Heart- normal rate, regular rhythm; no murmurs Abdomen- normal bowel sounds, nondistended, soft, nontender Extremities- no pretibial edema, no calf tenderness Neuro- alert, oriented x 3; no gross focal neurologic deficits Skin- warm & dry Results & Data Results & Data Vital Signs (Past 12 Hours) Vital Signs Temp Pulse Resp BP BP Pulse Ox O2 Del Method 10/27/24 07:28 36.8 C 108 H 17 130/78 94 Room Air 10/27/24 00:00 36.5 C 99 H 16 120/73 93 Room Air all noted and reviewed including below
--- NOTE | 2024-10-27 13:31 | Pharmacy Report ---
Pharmacy PK ABX Note - Date of Service October 27, 2024 - Assessment and Plan Assessment 10/27: * Day #12 vancomycin. Repeat level not drawn this AM and AM vancomycin administered. Ordered a repeat level for noon ~ 6.5h after the dose. Random level- 14.4mcg/mL which is predicted to achieve ssAUC 402mg/L.hr with a 51% probability. 10/26 * Random level 11.5 mcg/mL this morning which suggests below higher target range of 500-600 AUC/ARNOLD once level drawn while vanco infusing was removed from data (within 400-600 AUC/ARNOLD range). Given uncertainty of previous level/if it was removed with previous calculations will confirm tomorrow morning prior to increasing dose. 10/24: Day #9 vancomycin. * Vancomycin level drawn early this morning was reported as 30.8mcg/mL, however, it was drawn while the dose of vancomycin was infusing. The RN stopped the vancomycin infusion another vanco level was obtained ~4.5 hrs later which was 18.6mcg/mL. This extrapolates to a supratherapeutic AUC, so the maintenance dose of vancomycin was decreased. * Vancomycin is to continue through 12/03/24. She also continues on po levofloxacin. 10/21: Day #6 Vancomycin * Vanco level drawn this morning was 20.4mcg/mL which extrapolates to a supratherapeutic AUC. The maintenance dose of vancomycin has been decreased. * She also continues on Zosyn. 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 Trough level this AM, 11.7mcg/mL (~8h level drawn appropriately). 10/17 * Plan for 6-8 weeks of vancomycin. Random level today 11.6 mcg/mL suggests attainment of target AUC/ARNOLD * Will continue with current dose. Can get additional level at steady state 10/16: * The vancomycin was d/c and daptomycin was started on 10/11. Today the patient was changed back to vancomycin per ID recommendation as patient's condition is reportedly declining. IR drainage of fluid collection of lumbar spine done and cultured x 2 on 10/13. Both cultures grew S. epidermidis. Repeat blood cultures done 10/15 x 2 are no growth to date (preliminary). * Indwelling port removed as well on 10/14. * Will reload vancomycin and start a regimen targeting the upper end of the AUC goal. (ID recommends dosing for possible meningitis). 10/10: 79 year old started on vancomycin due to positive blood culture result/Gm+ cocci -staph epi / BCID2 positive for mecA/C. Only 1/2 bottles positive, therefore potential for contaminant. Repeat blood cultures pending. Pt with history of recent lumbar spine fracture - admitted for worsening pain. Per notes, ortho recommending conservative measures. Also undergoing chemotherapy with last session in August. On suppressive abx with levaquin, voriconazole and acyclovir. Plan Vancomycin * Random level today, 14.4mcg/mL (~6.5hr level)- predicted to achieve ssAUC 402mg/L.hr. * Given on low end of therapeutic range and a low probability of achieving an AUC >400, will adjust dose to 750mg IV q8h * Repeat trough tomorrow given pt requiring frequent dose adjustments with a relatively stable SCr. Pharmacy will continue to follow and will adjust dose/frequency as necessary. Thank you. Pharmacy has transitioned to AUC monitoring for vancomycin. AUC/ARNOLD is the preferred PK/PD target and is associated with decreased risk of nephrotoxicity compared to traditional trough targets.
[2024-10-27] MEDS: VANCOMYCIN 750 MG in SODIUM CHLORIDE 0.9% 250 ML IV SCH (14:17)
--- NOTE | 2024-10-27 16:21 | Magnetic Resonance Report ---
MRI OF THE LUMBAR SPINE WITHOUT CONTRAST CLINICAL HISTORY: Follow-up compression fracture, fluid collections. COMPARISON STUDY: Lumbar spine MRI October 12, 2024. Lumbar spine CT October 07, 2024. TECHNIQUE: Utilizing a 3 Otilia magnet and dedicated coil, multiplanar, multiecho imaging of the lumb ar spine was performed without IV contrast. FINDINGS: For purposes of numbering on this exam, the L5-S1 disc space is assigned to axial image 29 of 31. Ant erolisthesis of L4 and L5 is unchanged. L1, L2 and L3 compression fractures are similar in appearance to MRI of October 12, 2024. These are likely subacute. Severe loss of height at the L1 level is uncha nged. Retropulsion is again noted. Associated edema has slightly decreased. Retropulsion results in m oderate central canal stenosis, mild improved since prior exam. Patent AP diameter canal is 9 mm. The re is moderate loss of height of the L3 vertebral body and mild loss of height of the L2 vertebral misael dy. There are no acute fractures. There is no intracanalicular mass or fluid collection. The conus te rminates at the lower L1 level. Peripherally T2 hypointense collections within the bilateral psoas mu scles with associated edema are again noted. The right psoas collection has decreased in size, now me asuring 2 x 1.1 cm. The left psoas collection measures 0.9 cm, similar in size. No new collections ar e present. L1-2: Retropulsion results in moderate central canal stenosis, slightly improved. Moderate to severe bilateral neural foraminal stenosis is again noted. L2-3: There is disc bulge with facet arthrosis and ligamentous hypertrophy. There is mild narrowing o f the central canal and both neural foramen, unchanged. L3-4: There is minimal disc bulge with facet arthrosis and ligamentous hypertrophy. Central canal is patent. Moderate bilateral neural foraminal stenosis is unchanged. L4-5: Anterolisthesis is unchanged. There is facet arthrosis with ligamentous hypertrophy. Moderate c entral canal stenosis is unchanged. L5-S1: There is moderate facet arthrosis. There is mild disc bulge. The central canal is patent. Mild bilateral neural foraminal stenosis is unchanged. IMPRESSION: 1. No significant change in appearance of L1, L2 and L3 compression fractures since MRI of October 12, 2024. Stable retropulsion at the L1 level with interval decrease in associated edema. Slight improve ment in moderate central canal stenosis at this level. 2. No acute lumbar spine fractures. 3. Redemonstration of intramuscular fluid collections within the bilateral psoas muscles. The right c ollection has mildly decreased in size. The small left collection is unchanged. These favor resolving hematomas. 4. Moderate multilevel degenerative disc disease and facet arthrosis within the lumbar spine, [facility] ed. ACT 112: Negative or not required by law. Electronically signed by: Caden Connolly M.D. 10/27/2024 4:19 PM
[2024-10-28] MEDS: VANCOMYCIN LEVEL ONE (05:28)
[2024-10-28 06:05] LABS: Anion Gap 12.0 (3-11); Blood Urea Nitrogen 11.0 mg/dl (6-23); Calcium 8.7 mg/dl (8.6-10.3); Carbon Dioxide 22.0 mmol/L (21-32); Chloride 105.0 mmol/L (98-107); Creatinine Clr Calc Pharmacy 121.8 ml/min; Glucose 83.0 mg/dl (70-99(Fasting)); Potassium 3.8 mmol/L (3.5-5.1); Sodium 139.0 mmol/L (136-145)
[2024-10-28 08:15] LABS: Hematocrit (blood only) 30.2 % (37.0-47.0); Hemoglobin 9.3 g/dl (12.0-16.0); Immature Granulocytes # (auto) 0.10 K/uL (0.01-0.20); Immature Granulocytes % (auto) 1.4 %; Mean Corpuscular Hemoglobin 30.6 pg (25.0-34.0); Mean Corpuscular Volume 99.3 fL (80.0-100.0); Platelet Count 289 K/uL (130-400); RDW Standard Deviation 59.3 fL (36.4-46.3); Red Blood Count 3.04 M/uL (4.20-5.40); White Blood Count 7.11 K/ul (4.8-10.8)
[2024-10-28] MEDS: POTASSIUM CHLORIDE CRTAB 20 MEQ TABCR PO SCH (08:46)
--- NOTE | 2024-10-28 09:39 | Pharmacy Report ---
Pharmacy PK ABX Note - Date of Service October 28, 2024 - Assessment and Plan Assessment 10/28: * Vancomycin level this AM ~16.7 mcg/ml - current vancomycin regimen associated with goal AUC/ARNOLD therefore will continue current regimen 10/27: * Day #12 vancomycin. Repeat level not drawn this AM and AM vancomycin administered. Ordered a repeat level for noon ~ 6.5h after the dose. Random level- 14.4mcg/mL which is predicted to achieve ssAUC 402mg/L.hr with a 51% probability. 10/26 * Random level 11.5 mcg/mL this morning which suggests below higher target range of 500-600 AUC/ARNOLD once level drawn while vanco infusing was removed from data (within 400-600 AUC/ARNOLD range). Given uncertainty of previous level/if it was removed with previous calculations will confirm tomorrow morning prior to increasing dose. 10/24: Day #9 vancomycin. * Vancomycin level drawn early this morning was reported as 30.8mcg/mL, however, it was drawn while the dose of vancomycin was infusing. The RN stopped the vancomycin infusion another vanco level was obtained ~4.5 hrs later which was 18.6mcg/mL. This extrapolates to a supratherapeutic AUC, so the maintenance dose of vancomycin was decreased. * Vancomycin is to continue through 12/03/24. She also continues on po levofloxacin. 10/21: Day #6 Vancomycin * Vanco level drawn this morning was 20.4mcg/mL which extrapolates to a supratherapeutic AUC. The maintenance dose of vancomycin has been decreased. * She also continues on Zosyn. 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 Trough level this AM, 11.7mcg/mL (~8h level drawn appropriately). 10/17 * Plan for 6-8 weeks of vancomycin. Random level today 11.6 mcg/mL suggests attainment of target AUC/ARNOLD * Will continue with current dose. Can get additional level at steady state 10/16: * The vancomycin was d/c and daptomycin was started on 10/11. Today the patient was changed back to vancomycin per ID recommendation as patient's condition is reportedly declining. IR drainage of fluid collection of lumbar spine done and cultured x 2 on 10/13. Both cultures grew S. epidermidis. Repeat blood cultures done 10/15 x 2 are no growth to date (preliminary). * Indwelling port removed as well on 10/14. * Will reload vancomycin and start a regimen targeting the upper end of the AUC goal. (ID recommends dosing for possible meningitis). 10/10: 79 year old started on vancomycin due to positive blood culture result/Gm+ cocci -staph epi / BCID2 positive for mecA/C. Only 1/2 bottles positive, therefore potential for contaminant. Repeat blood cultures pending. Pt with history of recent lumbar spine fracture - admitted for worsening pain. Per notes, ortho recommending conservative measures. Also undergoing chemotherapy with last session in August. On suppressive abx with levaquin, voriconazole and acyclovir. Plan Vancomycin * Continue current dosing, no change * Consider rechecking level in next 2-3 days Pharmacy will continue to follow and will adjust dose/frequency as necessary. Jasper novoa. Pharmacy has transitioned to AUC monitoring for vancomycin. AUC/ARNOLD is the preferred PK/PD target and is associated with decreased risk of nephrotoxicity compared to traditional trough targets.
--- NOTE | 2024-10-28 11:40 | Palliative Care Consultation ---
Date of Consultation October 28, 2024 Assessment & Plan (1) Cancer related pain: Pat c/o uncontrolled pain and desiring something more on a regular schedule Will begin trial of OxyIR 5mg PO q6h and Hold for somnolence or RR less than 14; please document RR with each dose administration. (2) Generalized anxiety disorder: (3) Anxiety and depression: (4) Weakness generalized: (5) Palliative care by specialist: Introduced Palliative Medicine and explained our role in patient's care. Patient and/or family were receptive to palliative services for goals of care discussions. Reviewed we are different from hospice, a home health nurse visiting service. (6) Advanced care planning/counseling discussion: I attempted a face to face ACP discussion with Pat for about 20min at bedside but she could not stay focused. I called dtrs Vesna and Nadya. Vesna called me later this afternoon and we had a 30 min telephonic ACP Vesna states pt is not safe to return to her home and needs rehab She is unsure about her resumption of preventive chemo but notes that for all intents, the AML is in remission. Vesna notes pt does not admit this but has a lot of financial worries and issues. There is a "reverse mortgage" on pt home, she is not able to keep up payments/taxes or upkeep of the property - Vesna notes pt is fearful of losing her home but at this point may owe more on it than it is worth. She is worried about patient's halfway safety/residence and feels LTC may be in her future but this will not be something she wants for herself. She knows patient has been secretive in discussing finances and does not want to admit she is unable to manage the situation. They have not reached out to cancer clinic navigators for help re financial issues but notes pt may well refuse this bc she does not want to admit there is a problm. Plan as above Thank you for allowing us to participate in the ongoing care of this patient. Please page with any additional concerns. Idris Harvey DNP Director, Palliative Medicine History of Present Illness Reason for Consultation: pain mgt Attending Physician: Melvin Poe MD History of Present Illness Pat is a 79-year-old female who is readmitted following earlier admission 09/25 through 10/01/2024. She re-presented to the emergency department 10/08/2024 with persistent severe back pain. She had been discharged from our hospital with a diagnosis of spinal stenosis and discharged to rehab. Additionally due to her opioid pain regimen, she complained of persistent constipation. Her medical history is significant for diabetes, dyslipidemia, PSVT, HTN, GERD, OA of both knees, AML, generalized anxiety, and lumbar spinal stenosis. She was due to have chemotherapy 09/29/2024 which was held due to the rehab admission. She is now admitted for very severe back pain with L1 and L3 compression fractures. Procalcitonin was found to be elevated at 2.5 on day of admission. Empirically given cefepime and cultures obtained. IV Dilaudid ordered for breakthrough pain along with a lidocaine patch and orthopedics was consulted. During the earlier admission a left Port-A-Cath was placed which has now been removed with concern for infection.On 829 an ID consult was obtained by telehealth. She was found to have osteomyelitis of the lumbar vertebrae along with a psoas muscle abscess. Staph epidermidis bacteremia was noted along with her pre-existing compression fractures and AML. IV vancomycin was recommended for duration of 16 weeks. MRI of the lumbar spine was recommended towards the end of the treatment course. Severe back pain L1 and L3 compression fractures Staph epidermidis bacteremia Bilateral iliopsoas muscle fluid collections, likely infected At time of my visit, lilian is lying in bed, semi recline She is awake but intermittently confused. She believes both daughters are here outside her room and we are not allowing them in, she repeatedly rings for nursing to tell them to "send in my daughters" and every time she hears any voices from outside the room, she states "those are my daughters, I hear them, go get them now." She is able to relate part of the history - states "this entire experience has been unbelievable. It keeps snowballing. I can't believe it's all come to this." She states pain is so bad she barely moves. She cannot reposition herself, she says pain is usually 8 or higher on the 10 point scale and nothing has really made it "better" She states it is in her back, sharp, throbbing and spasmodic at times, it will radiate down into mid back Oxy IR is minimally taking the edge off at 5mg dose but she is not desiring aggressive opioid use bc "I don't want to be an addict." She states she just wants to get back home but knows she needs some rehab, she wants to know when they are going to send her for rehab Allergies Allergy/AdvReac Type Severity Reaction Status Date / Time No Known Allergies Allergy Mild Verified 09/17/24 11:27 Home Medications Medication Instructions Recorded Confirmed Type acetaminophen 500 mg tablet 1,000 mg PO Q8 PRN .FEVER/MILD 11/17/19 10/07/24 History PAIN 1-4 citalopram 10 mg tablet 10 mg PO QAM 01/09/24 10/07/24 History gabapentin 100 mg capsule 100 mg PO BID 01/09/24 10/07/24 History voriconazole 200 mg tablet 200 mg PO Q12 01/30/24 10/07/24 History ondansetron HCl 4 mg tablet 4 mg PO Q6H PRN Nausea And 02/02/24 10/07/24 Rx Vomiting #30 tabs amlodipine 10 mg tablet 5 mg PO QAM 08/26/24 10/07/24 History furosemide 20 mg tablet 10 mg PO Q OTHER DAY 08/26/24 10/07/24 History potassium chloride 10 mEq 10 meq PO Q OTHER DAY 08/26/24 10/07/24 History tablet,extended release atorvastatin 20 mg tablet 20 mg PO HS 09/10/24 10/07/24 History decitabine 50 mg intravenous 0 mg IV MONTHLY 09/10/24 10/07/24 History solution levofloxacin 500 mg tablet 500 mg PO QAM 09/25/24 10/07/24 History lorazepam 0.5 mg tablet 0.5 mg PO DAILY PRN Insomnia 09/25/24 10/07/24 History polyethylene glycol 3350 17 gram 17 g PO BID #1 ea 10/01/24 10/07/24 Rx oral powder packet (Miralax) sennosides 8.6 mg-docusate sodium 1 tab PO BID #1 tab 10/01/24 10/07/24 Rx 50 mg tablet (Senokot-S) acyclovir 400 mg tablet 400 mg PO BID 10/07/24 10/07/24 History buspirone 5 mg tablet 5 mg PO AMHS 10/07/24 10/07/24 History melatonin 5 mg tablet 5 mg PO HS PRN Insomnia 10/07/24 10/07/24 History oxycodone 5 mg tablet 5 mg PO Q6H PRN pain 5-8 10/07/24 10/07/24 History oxycodone 5 mg tablet 10 mg PO Q6H PRN pain 9-10 10/07/24 10/07/24 History tramadol 50 mg tablet 50 mg PO BID PRN pain 5-10 10/07/24 10/07/24 History Patient History Medical History (Updated 10/28/24 @ 19:38 by Rina Harvey DNP) Compression fracture of L1 vertebra Pericardial effusion History of - 02/2024- evaluated by [facility] cardio- felt related to AML and/or chemo treatments- repeat ECHOs showed improvement (most recent ECHO 05/2024) Lumbar spondylosis Biceps tendinitis of right shoulder Anxiety HTN (hypertension) Diabetes mellitus type II, controlled no meds most recent Hgb A1C 12/2024 was 7.5 History of cellulitis 12/2023 per records Hx of acute respiratory failure (01/2024) had been at [facility], transferred to [facility]- resolved AML (acute myeloblastic leukemia) (12/2023) [facility]- dr. oliver- gets chemo 1 week every month unless wbc is off, last chemo was week of august 31. has blood drawn weekly at [facility] SVT (supraventricular tachycardia) (2004) History of SVT- s/p 2004- no issues since. Sciatica Elevated cholesterol Controlled with statin Surgical History (Updated 10/14/24 @ 15:48 by Erin Almazan RN) Port-A-Cath in place (10/14/24) Removal of A-port(Left) - Randall Treviño DO History of insertion of tunneled central venous catheter (CVC) with port (01/2024) right side armstrong cath placed in [facility] History of left knee replacement (2019) History of bone marrow biopsy (07/17/24) x3- [facility] and [facility] S/P epidural steroid injection sciatica History of appendectomy (1967) H/O cardiac radiofrequency ablation (2004) 2004 H/O: hysterectomy (1989) [facility] with BSO Family History Father Cancer Other Coronary heart disease Diabetes Leukemia No family history of adverse response to anesthesia Social History Smoking Status: Never smoker Second Hand Exposure: No; Do You Dip or Chew Tobacco: No; Hx Alcohol Use: Yes Alcohol type: wine Hx Substance Use: No Preferred Language: Monegasque Communication Ability: Effective Visual Impairment: No Limitations Reinforcing Steel Worker Required: No Beliefs That Will Affect Care: None marital status: Current Living Situation: Family Current Living Situation Comment: lives w/daughter & grandson Feels Safe at Home: Yes Assistive Devices: Cane and Walker Review of Systems Review of Systems: All systems reviewed & are unremarkable except as noted in Subjective Physical Exam Physical Exam: AAOx3 but intermittently "hearing her daughters outside the room" and very easily distracted/off topic, rambling at times, +?auditory hallucinations NCAT, PERRLA EOMIs Neck Supple, no stridor Lungs CTA, mildly diminished CV S1S2 Abdomen soft, NTP, BS+ Back: tender upper mid to middle lumbar spine, +warmth no BLE edema Skin pale, +warm, dry Results & Data Vital Signs (Past 12 Hours) Vital Signs Temp Pulse Resp BP Pulse Ox O2 Del Method 10/28/24 07:01 36.5 C 90 16 115/68 94 Room Air Laboratory Results 10/28/24 10/28/24 10/28/24 Range/Units 11:18 07:42 05:24 WBC 7.11 (4.8-10.8) K/ul RBC 3.04 L (4.20-5.40) M/uL Hgb 9.3 L (12.0-16.0) g/dl Hct 30.2 L (37.0-47.0) % MCV 99.3 (80.0-100.0) fL MCH 30.6 (25.0-34.0) pg MCHC 30.8 L (32.0-36.0) g/dL RDW Std Deviation 59.3 H (36.4-46.3) fL RDW Coeff of Patti 16.2 H (11.5-14.5) % Plt Count 289 (130-400) K/uL MPV 9.8 (9.4-12.4) fL Immature Gran % (Auto) 1.4 % Neut % (Auto) 66.9 % Lymph % (Auto) 18.3 % Vernon % (Auto) 12.1 % Eos % (Auto) 0.6 % Baso % (Auto) 0.7 % Neut # (Auto) 4.76 (1.40-6.50) K/uL Lymph # (Auto) 1.30 (1.20-3.40) K/uL Vernon # (Auto) 0.86 H (0.11-0.59) K/uL Eos # (Auto) 0.04 (0.00-0.50) K/uL Baso # (Auto) 0.05 (0.00-0.20) K/uL Immature Gran # (Auto) 0.10 (0.01-0.20) K/uL Sodium (136-145) mmol/L Potassium (3.5-5.1) mmol/L Chloride (98-107) mmol/L Carbon Dioxide (21-32) mmol/L Anion Gap (3-11) BUN (6-23) mg/dl Creatinine (0.6-1.2) mg/dl Est Cr Clr Drug Dosing ml/min eGFR BUN/Creatinine Ratio (10-20) Glucose (70-99(Fasting)) mg/dl POC Glucose 128 H 91 (70-99) mg/dl Calcium (8.6-10.3) mg/dl Phosphorus (2.5-4.9) mg/dl Magnesium (1.7-2.4) mg/dl Total Bilirubin (0.2-1.0) mg/dl Direct Bilirubin (0-0.2) mg/dl AST (13-39) U/L ALT (7-52) U/L Alkaline Phosphatase (34-104) U/L Total Protein (6.0-8.3) gm/dl Albumin (3.4-5.0) gm/dl Vitamin B12 (180-914) pg/ml Random Vancomycin (10-20) mcg/ml 10/28/24 10/27/24 10/27/24 Range/Units 05:23 20:16 16:37 WBC (4.8-10.8) K/ul RBC (4.20-5.40) M/uL Hgb (12.0-16.0) g/dl Hct (37.0-47.0) % MCV (80.0-100.0) fL MCH (25.0-34.0) pg MCHC (32.0-36.0) g/dL RDW Std Deviation (36.4-46.3) fL RDW Coeff of Patti (11.5-14.5) % Plt Count (130-400) K/uL MPV (9.4-12.4) fL Immature Gran % (Auto) % Neut % (Auto) % Lymph % (Auto) % Vernon % (Auto) % Eos % (Auto) % Baso % (Auto) % Neut # (Auto) (1.40-6.50) K/uL Lymph # (Auto) (1.20-3.40) K/uL Vernon # (Auto) (0.11-0.59) K/uL Eos # (Auto) (0.00-0.50) K/uL Baso # (Auto) (0.00-0.20) K/uL Immature Gran # (Auto) (0.01-0.20) K/uL Sodium 139 (136-145) mmol/L Potassium 3.8 (3.5-5.1) mmol/L Chloride 105 (98-107) mmol/L Carbon Dioxide 22 (21-32) mmol/L Anion Gap 12 H (3-11) BUN 11 (6-23) mg/dl Creatinine 0.32 L (0.6-1.2) mg/dl Est Cr Clr Drug Dosing 121.8 ml/min eGFR 107.50 BUN/Creatinine Ratio 34.4 H (10-20) Glucose 83 (70-99(Fasting)) mg/dl POC Glucose 97 105 H (70-99) mg/dl Calcium 8.7 (8.6-10.3) mg/dl Phosphorus (2.5-4.9) mg/dl Magnesium (1.7-2.4) mg/dl Total Bilirubin (0.2-1.0) mg/dl Direct Bilirubin (0-0.2) mg/dl AST (13-39) U/L ALT (7-52) U/L Alkaline Phosphatase (34-104) U/L Total Protein (6.0-8.3) gm/dl Albumin (3.4-5.0) gm/dl Vitamin B12 (180-914) pg/ml Random Vancomycin 16.7 (10-20) mcg/ml 10/27/24 10/27/24 10/27/24 Range/Units 12:16 12:13 07:28 WBC (4.8-10.8) K/ul RBC (4.20-5.40) M/uL Hgb (12.0-16.0) g/dl Hct (37.0-47.0) % MCV (80.0-100.0) fL MCH (25.0-34.0) pg MCHC (32.0-36.0) g/dL RDW Std Deviation (36.4-46.3) fL RDW Coeff of Patti (11.5-14.5) % Plt Count (130-400) K/uL MPV (9.4-12.4) fL Immature Gran % (Auto) % Neut % (Auto) % Lymph % (Auto) % Vernon % (Auto) % Eos % (Auto) % Baso % (Auto) % Neut # (Auto) (1.40-6.50) K/uL Lymph # (Auto) (1.20-3.40) K/uL Vernon # (Auto) (0.11-0.59) K/uL Eos # (Auto) (0.00-0.50) K/uL Baso # (Auto) (0.00-0.20) K/uL Immature Gran # (Auto) (0.01-0.20) K/uL Sodium (136-145) mmol/L Potassium (3.5-5.1) mmol/L Chloride (98-107) mmol/L Carbon Dioxide (21-32) mmol/L Anion Gap (3-11) BUN (6-23) mg/dl Creatinine (0.6-1.2) mg/dl Est Cr Clr Drug Dosing ml/min eGFR BUN/Creatinine Ratio (10-20) Glucose (70-99(Fasting)) mg/dl POC Glucose 93 103 H (70-99) mg/dl Calcium (8.6-10.3) mg/dl Phosphorus (2.5-4.9) mg/dl Magnesium (1.7-2.4) mg/dl Total Bilirubin (0.2-1.0) mg/dl Direct Bilirubin (0-0.2) mg/dl AST (13-39) U/L ALT (7-52) U/L Alkaline Phosphatase (34-104) U/L Total Protein (6.0-8.3) gm/dl Albumin (3.4-5.0) gm/dl Vitamin B12 (180-914) pg/ml Random Vancomycin 14.4 (10-20) mcg/ml 10/27/24 10/26/24 10/26/24 Range/Units 05:38 20:35 16:37 WBC (4.8-10.8) K/ul RBC (4.20-5.40) M/uL Hgb (12.0-16.0) g/dl Hct (37.0-47.0) % MCV (80.0-100.0) fL MCH (25.0-34.0) pg MCHC (32.0-36.0) g/dL RDW Std Deviation (36.4-46.3) fL RDW Coeff of Patti (11.5-14.5) % Plt Count (130-400) K/uL MPV (9.4-12.4) fL Immature Gran % (Auto) % Neut % (Auto) % Lymph % (Auto) % Vernon % (Auto) % Eos % (Auto) % Baso % (Auto) % Neut # (Auto) (1.40-6.50) K/uL Lymph # (Auto) (1.20-3.40) K/uL Vernon # (Auto) (0.11-0.59) K/uL Eos # (Auto) (0.00-0.50) K/uL Baso # (Auto) (0.00-0.20) K/uL Immature Gran # (Auto) (0.01-0.20) K/uL Sodium 137 (136-145) mmol/L Potassium 4.5 (3.5-5.1) mmol/L Chloride 104 (98-107) mmol/L Carbon Dioxide 22 (21-32) mmol/L Anion Gap 11 (3-11) BUN 11 (6-23) mg/dl Creatinine 0.33 L (0.6-1.2) mg/dl Est Cr Clr Drug Dosing 118.1 ml/min eGFR 106.71 BUN/Creatinine Ratio 33.3 H (10-20) Glucose 81 (70-99(Fasting)) mg/dl POC Glucose 90 91 (70-99) mg/dl Calcium 8.9 (8.6-10.3) mg/dl Phosphorus (2.5-4.9) mg/dl Magnesium (1.7-2.4) mg/dl Total Bilirubin (0.2-1.0) mg/dl Direct Bilirubin (0-0.2) mg/dl AST (13-39) U/L ALT (7-52) U/L Alkaline Phosphatase (34-104) U/L Total Protein (6.0-8.3) gm/dl Albumin (3.4-5.0) gm/dl Vitamin B12 (180-914) pg/ml Random Vancomycin (10-20) mcg/ml 10/26/24 10/26/24 10/26/24 Range/Units 11:53 07:29 04:34 WBC (4.8-10.8) K/ul RBC (4.20-5.40) M/uL Hgb (12.0-16.0) g/dl Hct (37.0-47.0) % MCV (80.0-100.0) fL MCH (25.0-34.0) pg MCHC (32.0-36.0) g/dL RDW Std Deviation (36.4-46.3) fL RDW Coeff of Patti (11.5-14.5) % Plt Count (130-400) K/uL MPV (9.4-12.4) fL Immature Gran % (Auto) % Neut % (Auto) % Lymph % (Auto) % Vernon % (Auto) % Eos % (Auto) % Baso % (Auto) % Neut # (Auto) (1.40-6.50) K/uL Lymph # (Auto) (1.20-3.40) K/uL Vernon # (Auto) (0.11-0.59) K/uL Eos # (Auto) (0.00-0.50) K/uL Baso # (Auto) (0.00-0.20) K/uL Immature Gran # (Auto) (0.01-0.20) K/uL Sodium 139 (136-145) mmol/L Potassium 4.4 (3.5-5.1) mmol/L Chloride 107 (98-107) mmol/L Carbon Dioxide 23 (21-32) mmol/L Anion Gap 9 (3-11) BUN 12 (6-23) mg/dl Creatinine 0.37 L (0.6-1.2) mg/dl Est Cr Clr Drug Dosing 105.3 ml/min eGFR 103.81 BUN/Creatinine Ratio 32.4 H (10-20) Glucose 76 (70-99(Fasting)) mg/dl POC Glucose 123 H 91 (70-99) mg/dl Calcium 8.9 (8.6-10.3) mg/dl Phosphorus (2.5-4.9) mg/dl Magnesium (1.7-2.4) mg/dl Total Bilirubin (0.2-1.0) mg/dl Direct Bilirubin (0-0.2) mg/dl AST (13-39) U/L ALT (7-52) U/L Alkaline Phosphatase (34-104) U/L Total Protein (6.0-8.3) gm/dl Albumin (3.4-5.0) gm/dl Vitamin B12 (180-914) pg/ml Random Vancomycin 11.5 (10-20) mcg/ml 10/25/24 10/25/24 10/25/24 Range/Units 20:47 16:39 11:36 WBC (4.8-10.8) K/ul RBC (4.20-5.40) M/uL Hgb (12.0-16.0) g/dl Hct (37.0-47.0) % MCV (80.0-100.0) fL MCH (25.0-34.0) pg MCHC (32.0-36.0) g/dL RDW Std Deviation (36.4-46.3) fL RDW Coeff of Patti (11.5-14.5) % Plt Count (130-400) K/uL MPV (9.4-12.4) fL Immature Gran % (Auto) % Neut % (Auto) % Lymph % (Auto) % Vernon % (Auto) % Eos % (Auto) % Baso % (Auto) % Neut # (Auto) (1.40-6.50) K/uL Lymph # (Auto) (1.20-3.40) K/uL Vernon # (Auto) (0.11-0.59) K/uL Eos # (Auto) (0.00-0.50) K/uL Baso # (Auto) (0.00-0.20) K/uL Immature Gran # (Auto) (0.01-0.20) K/uL Sodium (136-145) mmol/L Potassium (3.5-5.1) mmol/L Chloride (98-107) mmol/L Carbon Dioxide (21-32) mmol/L Anion Gap (3-11) BUN (6-23) mg/dl Creatinine (0.6-1.2) mg/dl Est Cr Clr Drug Dosing ml/min eGFR BUN/Creatinine Ratio (10-20) Glucose (70-99(Fasting)) mg/dl POC Glucose 132 H 119 H 90 (70-99) mg/dl Calcium (8.6-10.3) mg/dl Phosphorus (2.5-4.9) mg/dl Magnesium (1.7-2.4) mg/dl Total Bilirubin (0.2-1.0) mg/dl Direct Bilirubin (0-0.2) mg/dl AST (13-39) U/L ALT (7-52) U/L Alkaline Phosphatase (34-104) U/L Total Protein (6.0-8.3) gm/dl Albumin (3.4-5.0) gm/dl Vitamin B12 (180-914) pg/ml Random Vancomycin (10-20) mcg/ml 10/25/24 10/25/24 10/24/24 Range/Units 07:24 05:37 20:16 WBC (4.8-10.8) K/ul RBC (4.20-5.40) M/uL Hgb (12.0-16.0) g/dl Hct (37.0-47.0) % MCV (80.0-100.0) fL MCH (25.0-34.0) pg MCHC (32.0-36.0) g/dL RDW Std Deviation (36.4-46.3) fL RDW Coeff of Patti (11.5-14.5) % Plt Count (130-400) K/uL MPV (9.4-12.4) fL Immature Gran % (Auto) % Neut % (Auto) % Lymph % (Auto) % Vernon % (Auto) % Eos % (Auto) % Baso % (Auto) % Neut # (Auto) (1.40-6.50) K/uL Lymph # (Auto) (1.20-3.40) K/uL Vernon # (Auto) (0.11-0.59) K/uL Eos # (Auto) (0.00-0.50) K/uL Baso # (Auto) (0.00-0.20) K/uL Immature Gran # (Auto) (0.01-0.20) K/uL Sodium 138 (136-145) mmol/L Potassium 4.1 (3.5-5.1) mmol/L Chloride 105 (98-107) mmol/L Carbon Dioxide 24 (21-32) mmol/L Anion Gap 9 (3-11) BUN 11 (6-23) mg/dl Creatinine 0.40 L (0.6-1.2) mg/dl Est Cr Clr Drug Dosing 97.4 ml/min eGFR 101.87 BUN/Creatinine Ratio 27.5 H (10-20) Glucose 79 (70-99(Fasting)) mg/dl POC Glucose 87 98 (70-99) mg/dl Calcium 9.1 (8.6-10.3) mg/dl Phosphorus (2.5-4.9) mg/dl Magnesium (1.7-2.4) mg/dl Total Bilirubin (0.2-1.0) mg/dl Direct Bilirubin (0-0.2) mg/dl AST (13-39) U/L ALT (7-52) U/L Alkaline Phosphatase (34-104) U/L Total Protein (6.0-8.3) gm/dl Albumin (3.4-5.0) gm/dl Vitamin B12 (180-914) pg/ml Random Vancomycin (10-20) mcg/ml 10/24/24 10/24/24 10/24/24 Range/Units 17:25 11:22 10:06 WBC (4.8-10.8) K/ul RBC (4.20-5.40) M/uL Hgb (12.0-16.0) g/dl Hct (37.0-47.0) % MCV (80.0-100.0) fL MCH (25.0-34.0) pg MCHC (32.0-36.0) g/dL RDW Std Deviation (36.4-46.3) fL RDW Coeff of Patti (11.5-14.5) % Plt Count (130-400) K/uL MPV (9.4-12.4) fL Immature Gran % (Auto) % Neut % (Auto) % Lymph % (Auto) % Vernon % (Auto) % Eos % (Auto) % Baso % (Auto) % Neut # (Auto) (1.40-6.50) K/uL Lymph # (Auto) (1.20-3.40) K/uL Vernon # (Auto) (0.11-0.59) K/uL Eos # (Auto) (0.00-0.50) K/uL Baso # (Auto) (0.00-0.20) K/uL Immature Gran # (Auto) (0.01-0.20) K/uL Sodium (136-145) mmol/L Potassium (3.5-5.1) mmol/L Chloride (98-107) mmol/L Carbon Dioxide (21-32) mmol/L Anion Gap (3-11) BUN (6-23) mg/dl Creatinine (0.6-1.2) mg/dl Est Cr Clr Drug Dosing ml/min eGFR BUN/Creatinine Ratio (10-20) Glucose (70-99(Fasting)) mg/dl POC Glucose 121 H 120 H (70-99) mg/dl Calcium (8.6-10.3) mg/dl Phosphorus (2.5-4.9) mg/dl Magnesium (1.7-2.4) mg/dl Total Bilirubin (0.2-1.0) mg/dl Direct Bilirubin (0-0.2) mg/dl AST (13-39) U/L ALT (7-52) U/L Alkaline Phosphatase (34-104) U/L Total Protein (6.0-8.3) gm/dl Albumin (3.4-5.0) gm/dl Vitamin B12 (180-914) pg/ml Random Vancomycin 18.6 (10-20) mcg/ml 10/24/24 10/24/24 10/23/24 Range/Units 07:27 05:39 20:26 WBC (4.8-10.8) K/ul RBC (4.20-5.40) M/uL Hgb (12.0-16.0) g/dl Hct (37.0-47.0) % MCV (80.0-100.0) fL MCH (25.0-34.0) pg MCHC (32.0-36.0) g/dL RDW Std Deviation (36.4-46.3) fL RDW Coeff of Patti (11.5-14.5) % Plt Count (130-400) K/uL MPV (9.4-12.4) fL Immature Gran % (Auto) % Neut % (Auto) % Lymph % (Auto) % Vernon % (Auto) % Eos % (Auto) % Baso % (Auto) % Neut # (Auto) (1.40-6.50) K/uL Lymph # (Auto) (1.20-3.40) K/uL Vernon # (Auto) (0.11-0.59) K/uL Eos # (Auto) (0.00-0.50) K/uL Baso # (Auto) (0.00-0.20) K/uL Immature Gran # (Auto) (0.01-0.20) K/uL Sodium (136-145) mmol/L Potassium (3.5-5.1) mmol/L Chloride (98-107) mmol/L Carbon Dioxide (21-32) mmol/L Anion Gap (3-11) BUN (6-23) mg/dl Creatinine 0.44 L (0.6-1.2) mg/dl Est Cr Clr Drug Dosing 88.6 ml/min eGFR 99.56 BUN/Creatinine Ratio (10-20) Glucose (70-99(Fasting)) mg/dl POC Glucose 111 H 126 H (70-99) mg/dl Calcium (8.6-10.3) mg/dl Phosphorus (2.5-4.9) mg/dl Magnesium (1.7-2.4) mg/dl Total Bilirubin (0.2-1.0) mg/dl Direct Bilirubin (0-0.2) mg/dl AST (13-39) U/L ALT (7-52) U/L Alkaline Phosphatase (34-104) U/L Total Protein (6.0-8.3) gm/dl Albumin (3.4-5.0) gm/dl Vitamin B12 (180-914) pg/ml Random Vancomycin 30.8 H* (10-20) mcg/ml 10/23/24 10/23/24 10/23/24 Range/Units 16:34 11:33 06:59 WBC (4.8-10.8) K/ul RBC (4.20-5.40) M/uL Hgb (12.0-16.0) g/dl Hct (37.0-47.0) % MCV (80.0-100.0) fL MCH (25.0-34.0) pg MCHC (32.0-36.0) g/dL RDW Std Deviation (36.4-46.3) fL RDW Coeff of Patti (11.5-14.5) % Plt Count (130-400) K/uL MPV (9.4-12.4) fL Immature Gran % (Auto) % Neut % (Auto) % Lymph % (Auto) % Vernon % (Auto) % Eos % (Auto) % Baso % (Auto) % Neut # (Auto) (1.40-6.50) K/uL Lymph # (Auto) (1.20-3.40) K/uL Vernon # (Auto) (0.11-0.59) K/uL Eos # (Auto) (0.00-0.50) K/uL Baso # (Auto) (0.00-0.20) K/uL Immature Gran # (Auto) (0.01-0.20) K/uL Sodium (136-145) mmol/L Potassium (3.5-5.1) mmol/L Chloride (98-107) mmol/L Carbon Dioxide (21-32) mmol/L Anion Gap (3-11) BUN (6-23) mg/dl Creatinine (0.6-1.2) mg/dl Est Cr Clr Drug Dosing ml/min eGFR BUN/Creatinine Ratio (10-20) Glucose (70-99(Fasting)) mg/dl POC Glucose 109 H 114 H 91 (70-99) mg/dl Calcium (8.6-10.3) mg/dl Phosphorus (2.5-4.9) mg/dl Magnesium (1.7-2.4) mg/dl Total Bilirubin (0.2-1.0) mg/dl Direct Bilirubin (0-0.2) mg/dl AST (13-39) U/L ALT (7-52) U/L Alkaline Phosphatase (34-104) U/L Total Protein (6.0-8.3) gm/dl Albumin (3.4-5.0) gm/dl Vitamin B12 (180-914) pg/ml Random Vancomycin (10-20) mcg/ml 10/23/24 10/22/24 10/22/24 Range/Units 05:41 20:28 16:30 WBC 5.97 (4.8-10.8) K/ul RBC 3.27 L (4.20-5.40) M/uL Hgb 10.4 L (12.0-16.0) g/dl Hct 32.4 L (37.0-47.0) % MCV 99.1 (80.0-100.0) fL MCH 31.8 (25.0-34.0) pg MCHC 32.1 (32.0-36.0) g/dL RDW Std Deviation 57.4 H (36.4-46.3) fL RDW Coeff of Patti 15.6 H (11.5-14.5) % Plt Count 280 (130-400) K/uL MPV 9.6 (9.4-12.4) fL Immature Gran % (Auto) % Neut % (Auto) % Lymph % (Auto) % Vernon % (Auto) % Eos % (Auto) % Baso % (Auto) % Neut # (Auto) (1.40-6.50) K/uL Lymph # (Auto) (1.20-3.40) K/uL Vernon # (Auto) (0.11-0.59) K/uL Eos # (Auto) (0.00-0.50) K/uL Baso # (Auto) (0.00-0.20) K/uL Immature Gran # (Auto) (0.01-0.20) K/uL Sodium 139 (136-145) mmol/L Potassium 4.4 (3.5-5.1) mmol/L Chloride 103 (98-107) mmol/L Carbon Dioxide 25 (21-32) mmol/L Anion Gap 11 (3-11) BUN 12 (6-23) mg/dl Creatinine 0.44 L (0.6-1.2) mg/dl Est Cr Clr Drug Dosing 88.6 ml/min eGFR 99.56 BUN/Creatinine Ratio 27.3 H (10-20) Glucose 87 (70-99(Fasting)) mg/dl POC Glucose 107 H 109 H (70-99) mg/dl Calcium 9.6 (8.6-10.3) mg/dl Phosphorus 4.5 (2.5-4.9) mg/dl Magnesium 2.1 (1.7-2.4) mg/dl Total Bilirubin 0.4 (0.2-1.0) mg/dl Direct Bilirubin 0.1 (0-0.2) mg/dl AST 16 (13-39) U/L ALT 10 (7-52) U/L Alkaline Phosphatase 137 H (34-104) U/L Total Protein 7.6 (6.0-8.3) gm/dl Albumin 3.4 (3.4-5.0) gm/dl Vitamin B12 (180-914) pg/ml Random Vancomycin (10-20) mcg/ml 10/22/24 10/22/24 10/22/24 Range/Units 11:25 07:17 05:38 WBC (4.8-10.8) K/ul RBC (4.20-5.40) M/uL Hgb (12.0-16.0) g/dl Hct (37.0-47.0) % MCV (80.0-100.0) fL MCH (25.0-34.0) pg MCHC (32.0-36.0) g/dL RDW Std Deviation (36.4-46.3) fL RDW Coeff of Patti (11.5-14.5) % Plt Count (130-400) K/uL MPV (9.4-12.4) fL Immature Gran % (Auto) % Neut % (Auto) % Lymph % (Auto) % Vernon % (Auto) % Eos % (Auto) % Baso % (Auto) % Neut # (Auto) (1.40-6.50) K/uL Lymph # (Auto) (1.20-3.40) K/uL Vernon # (Auto) (0.11-0.59) K/uL Eos # (Auto) (0.00-0.50) K/uL Baso # (Auto) (0.00-0.20) K/uL Immature Gran # (Auto) (0.01-0.20) K/uL Sodium (136-145) mmol/L Potassium (3.5-5.1) mmol/L Chloride (98-107) mmol/L Carbon Dioxide (21-32) mmol/L Anion Gap (3-11) BUN (6-23) mg/dl Creatinine 0.39 L (0.6-1.2) mg/dl Est Cr Clr Drug Dosing 99.9 ml/min eGFR 102.50 BUN/Creatinine Ratio (10-20) Glucose (70-99(Fasting)) mg/dl POC Glucose 104 H 100 H (70-99) mg/dl Calcium (8.6-10.3) mg/dl Phosphorus (2.5-4.9) mg/dl Magnesium (1.7-2.4) mg/dl Total Bilirubin (0.2-1.0) mg/dl Direct Bilirubin (0-0.2) mg/dl AST (13-39) U/L ALT (7-52) U/L Alkaline Phosphatase (34-104) U/L Total Protein (6.0-8.3) gm/dl Albumin (3.4-5.0) gm/dl Vitamin B12 323 (180-914) pg/ml Random Vancomycin (10-20) mcg/ml 10/21/24 10/21/24 10/21/24 Range/Units 20:27 16:30 14:00 WBC (4.8-10.8) K/ul RBC (4.20-5.40) M/uL Hgb (12.0-16.0) g/dl Hct (37.0-47.0) % MCV (80.0-100.0) fL MCH (25.0-34.0) pg MCHC (32.0-36.0) g/dL RDW Std Deviation (36.4-46.3) fL RDW Coeff of Patti (11.5-14.5) % Plt Count (130-400) K/uL MPV (9.4-12.4) fL Immature Gran % (Auto) % Neut % (Auto) % Lymph % (Auto) % Vernon % (Auto) % Eos % (Auto) % Baso % (Auto) % Neut # (Auto) (1.40-6.50) K/uL Lymph # (Auto) (1.20-3.40) K/uL Vernon # (Auto) (0.11-0.59) K/uL Eos # (Auto) (0.00-0.50) K/uL Baso # (Auto) (0.00-0.20) K/uL Immature Gran # (Auto) (0.01-0.20) K/uL Sodium (136-145) mmol/L Potassium (3.5-5.1) mmol/L Chloride (98-107) mmol/L Carbon Dioxide (21-32) mmol/L Anion Gap (3-11) BUN (6-23) mg/dl Creatinine (0.6-1.2) mg/dl Est Cr Clr Drug Dosing ml/min eGFR BUN/Creatinine Ratio (10-20) Glucose (70-99(Fasting)) mg/dl POC Glucose 118 H 103 H (70-99) mg/dl Calcium (8.6-10.3) mg/dl Phosphorus (2.5-4.9) mg/dl Magnesium (1.7-2.4) mg/dl Total Bilirubin (0.2-1.0) mg/dl Direct Bilirubin (0-0.2) mg/dl AST (13-39) U/L ALT (7-52) U/L Alkaline Phosphatase (34-104) U/L Total Protein (6.0-8.3) gm/dl Albumin (3.4-5.0) gm/dl Vitamin B12 (180-914) pg/ml Random Vancomycin 20.4 H (10-20) mcg/ml Diagnostic Findings Abdomen/Pelvis CT 10/07/24 19:31 Exam(s): CT ABDOMEN + PELVIS Without Contrast EXAM: CT Abdomen and Pelvis Without Intravenous Contrast CLINICAL HISTORY: Reason for exam: low back pain, recent fx in spine. TECHNIQUE: Axial computed tomography images of the abdomen and pelvis without intravenous contrast. CTDI is 20.82 mGy and DLP is 705.94 mGy-cm. Automated exposure control was utilized for the study. A dose lowering technique was utilized adhering to the principles of ALARA. COMPARISON: CT lumbar spine 09/25/2024, CT abdomen and pelvis 02/24/2024 FINDINGS: Lung bases: Unremarkable. ABDOMEN: Liver: Unremarkable. Gallbladder and bile ducts: Unremarkable. No calcified stones. No ductal dilation. Pancreas: Unremarkable. No ductal dilation. Spleen: Unremarkable. No splenomegaly. Adrenals: Unremarkable. No mass. Kidneys and ureters: Large calculus right renal pelvis measuring 3 cm. No associated hydronephrosis. Additional right kidney caliceal stone measuring 12 mm. Left kidney and collecting system are unremarkable. Stomach and bowel: Unremarkable. No mucosal thickening. No bowel obstruction. PELVIS: Appendix: Appendix not visualized. Bladder: Unremarkable. No stones. Reproductive: Hysterectomy. ABDOMEN and PELVIS: Intraperitoneal space: Unremarkable. No free air, significant free fluid, or fluid collection. Bones/joints: Acute or subacute 70% L1 compression fracture with 7 mm retropulsion producing [id number] spinal canal stenosis. Acute/subacute 30% L3 compression fracture without retropulsion. No other fractures. Osteopenia. Disc and facet degeneration with grade 1 anterolisthesis of L4. No dislocation. Soft tissues: Small fat containing umbilical hernia. Vasculature: Atherosclerosis. No abdominal aortic aneurysm. Lymph nodes: Unremarkable. No enlarged lymph nodes. IMPRESSION: 1. Acute/subacute 70% L1 compression fracture with 7 mm retropulsion producing [id number] spinal canal stenosis. 2. Acute/subacute 30% L3 compression fracture without retropulsion. 3. Large calculus right renal pelvis measuring 3 cm. No associated hydronephrosis. Electronically signed by: Raoul Mari M.D. 10/07/24 21:[address] 10/07/24 19:31 Exam(s): CT L SPINE EXAM: CT Lumbar Spine Without Intravenous Contrast CLINICAL HISTORY: Reason for exam: low back pain, recent fx in spine. TECHNIQUE: Axial computed tomography images of the lumbar spine without intravenous contrast. CTDI is 20.82 mGy and DLP is 705.94 mGy-cm. Automated exposure control was utilized for the study. A dose lowering technique was utilized adhering to the principles of ALARA. COMPARISON: CT lumbar spine 09/25/2024; CT abdomen and pelvis 02/24/24 FINDINGS: There is an acute/subacute 70% L1 compression fracture with 7 mm retropulsion producing moderate to severe spinal canal stenosis. There is an acute/subacute 30% L3 compression fracture without retropulsion. Vertebral body heights are otherwise maintained. Bones are osteopenic. There is disc and facet degeneration at multiple lumbar levels. L1-L2: Moderate-severe spinal canal stenosis due to retropulsed bone related to the L1 fracture. Moderate bilateral foraminal narrowing. L2-L3: Disc bulging mildly narrowing the spinal canal. Foramina are patent. L3-L4: Compression fracture at L3. Disc bulging and ligamentum flavum thickening. Mild spinal canal narrowing. Mild right and moderate left foraminal narrowing. L4-L5: Disc and facet degeneration with grade 1 anterolisthesis of L4. Severe spinal canal stenosis. Severe right foraminal narrowing. Left foramen is patent. L5-S1: Disc and facet degeneration. No significant spinal canal stenosis. Moderate left foraminal narrowing. Mild right foraminal narrowing. Sacroiliac joints are normally aligned. IMPRESSION: 1. Acute or subacute compression fractures at L1 and L3 as detailed above, similar in appearance to 09/25/2024, but new from 02/24/2024. 2. Multilevel canal and foraminal narrowing as detailed above. Electronically signed by: Raoul Mari M.D. 10/07/24 21:[address] 10/07/24 19:31 Exam(s): CT T SPINE EXAM: CT Thoracic Spine Without Intravenous Contrast CLINICAL HISTORY: Reason for exam: low back pain, recent fx in spine. TECHNIQUE: Axial computed tomography images of the thoracic spine without intravenous contrast. CTDI is 21 mGy and DLP is 1288 mGy-cm. Automated exposure control was utilized for the study. A dose lowering technique was utilized adhering to the principles of ALARA. COMPARISON: No relevant prior studies available. FINDINGS: Vertebrae: No acute fracture. No traumatic subluxation. Discs/spinal canal/neural foramina: Lower thoracic disc degeneration. No spinal canal stenosis. Soft tissues: Unremarkable. IMPRESSION: No acute findings in the thoracic spine. Electronically signed by: Raoul Mari M.D. 10/07/24 21:56 PM Chest X-Ray 10/07/24 21:23 Exam(s): XR CXR 1 VIEW EXAM: XR Chest, 1 View CLINICAL HISTORY: Reason for exam: back pain. TECHNIQUE: Frontal view of the chest. COMPARISON: No relevant prior studies available. FINDINGS: Lungs: No consolidation. Pleural space: No significant pleural effusion. No pneumothorax. Heart: No cardiomegaly or pulmonary vascular congestion. Bones/joints: No acute fracture. No dislocation. Tubes, lines and devices: Left IJ approach port catheter with tip in the proximal SVC. IMPRESSION: No acute findings in the chest. Electronically signed by: Raoul Mari M.D. 10/07/24 21:57 PM KUB X-Ray 10/09/24 08:14 KUB HISTORY: abdominal pain COMPARISON STUDY: 10/07/2024 FINDINGS: Stable large calcification at the right renal collecting system. There is mild retained stool. No bowel obstruction seen. No gross free air. IMPRESSION: No acute findings. ACT 112: Negative or not required by law. The above report was generated using voice recognition software. It may contain grammatical, syntax or spelling errors. Electronically signed by: Joe Rivero M.D. 10/09/2024 9:13 AM Lumbar Spine MRI 10/12/24 17:30 MRI OF THE LUMBAR SPINE WITHOUT IV CONTRAST CLINICAL HISTORY: Low back pain. Known compression fractures. Clinical concern for infection. COMPARISON STUDY: MRI of the lumbar spine dated 09/25/2024. CT of the lumbar spine dated 10/07/2024. TECHNIQUE: MRI of the lumbar spine is performed utilizing various T1 and T2- weighted sequences in the axial and sagittal planes. IV contrast was not administered for this examination. The examination is degraded by motion artifact. FINDINGS: Lumbar spine: Marrow signal intensity is heterogeneous. Again seen is a moderate compression deformity of L1. Fragments are retropulsed that the 7 mm. A mild superior end plate compression deformity is seen in L2 and a mild inferior endplate compression deformity is seen in L3. These fractures are unchanged from the 09/27/2024 CT scan. The L2 fracture is new from 09/25/2024. These fractures all show persistent marrow edema. No new fracture is identified involving the lumbar spine. Vertebral body height at T12, L4, and L5 is maintained. There is 5 mm of anterolisthesis at L4-L5. Alignment is otherwise preserved. The transverse and spinous processes appear intact. There is no evidence of spondylolysis. No destructive bony lesion is seen. Chronic degenerative endplate change is seen at all lumbar levels. Intervertebral discs: There is nonspecific fluid within the disc spaces at L1- L2, L4-L5, and L5-S1. This is similar to the 09/25/2024 examination and may be on a posttraumatic/degenerative basis. There is moderate to severe loss of height at L4-L5 and L5-S1. Only mild loss of height is seen at the remaining levels. Spinal cord: The imaged spinal cord is normal in morphology and signal intensity. The conus medullaris terminates at the level of L2. The nerve roots of the cauda equina are normal in morphology. T12-L1: The central canal and neural foramina a grossly patent. L1-L2: Fragments at L1 are retropulsed by up to 7 mm. This moderately effaces the the anterior aspect of the thecal sac. The minimum AP canal diameter at this level measures 8 mm. There are likely inferior extruded disc/bone fragments extend left which impinges the traversing left-sided nerve roots. Given the fluid collections in the adjacent iliopsoas musculature, a component of epidural fluid collection at this site is not excluded. Lateral disc bulges/bony fragments likely contribute to moderate to severe bilateral neural foraminal stenosis. L2-L3: There is broad-based posterior disc bulge which abuts the transiting n erve roots. No significant central canal stenosis is seen. Lateral disc bulges cause mild bilateral subarticular stenosis. Facet arthropathy is of no consequence. No significant neural foraminal stenosis is seen. L3-L4: There is broad-based posterior disc bulge which abuts the transiting nerve roots. No significant central canal stenosis is seen. Lateral disc bulges cause mild bilateral subarticular stenosis. In conjunction with facet arthropathy there is mild left neural foraminal stenosis. The right neural foramen is patent. L4-L5: There is broad-based posterior disc bulge which abuts the transiting nerve roots. In conjunction with hypertrophy of the ligamentum flavum and anterolisthesis there is mild central canal stenosis at this level with a minimum AP canal diameter of 7 mm. Lateral disc bulges cause bilateral subarticular stenosis, right side greater than left. This may impinge on the exiting right L4 nerve root. In conjunction with facet arthropathy there is moderate to severe right and mild left neural foraminal stenosis. L5-S1: There is minimal posterior disc bulge. The central canal is clear. Lateral disc bulges because bilateral subarticular stenosis. In conjunction with facet arthropathy there is mild left greater than right neural foraminal stenosis. Sacrum: Imaged portions of sacrum show normal morphology and signal intensity. Soft tissues: There is fatty atrophy of the paraspinous and iliopsoas musculature. Mild paravertebral edema is seen at the fracture levels. There is significant edema within the psoas musculature bilaterally. Fluid collections within the psoas muscles are new from 09/25/2024. A 2.4 x 1.4 cm collection in the right psoas muscle is seen on image #9 at the level of L1, and smaller collections within the left psoas muscle seen on images #8-11 at the levels L1- L2 measure up to 1.3 cm. IMPRESSION: 1. Again seen are subacute compression fractures of L1, L2, and L3 as detailed above. The L2 fracture is new from 09/25/2024. These fractures show marrow edema, and loss of height is similar to the 10/07/2024 examination. 2. No new fracture is seen. 3. There is marked edema within the psoas musculature bilaterally with bilateral fluid collections within the psoas muscles at L1 and L2. These are new from 09/25/2024 and pathologically indeterminate. These could represent hematoma, with abscesses not excluded. Clinical correlation will be essential. 4. There is increasing retropulsion of fragments at L1 with moderate effacement of the anterior thecal sac. There is also likely inferiorly extruded disc/bone fragments eccentric to the left which impinge on the transit left-sided nerve roots. Given the presence of fluid collections within the adjacent iliopsoas musculature, a component of epidural fluid collection at this level is not excluded. 5. Laterally extruded disc fragments and/or bone fragments at L1 likely causes moderate to severe bilateral neural foraminal stenosis at L1-L2. 6. There is nonspecific fluid within the discs at L1-L2, L4-L5, and L5-S1, which is similar in appearance to previous and may be on a posttraumatic/degenerative basis. Given the clinical concern, infection would be impossible to entirely exclude and clinical correlation will be essential. 7. Spondylotic change as above. See discussion for detailed level by level analysis. Electronically signed by: Lit Franco M.D. 10/12/2024 2:37 PM Thoracic Spine MRI 10/12/24 17:30 MRI OF THE THORACIC SPINE WITHOUT IV CONTRAST CLINICAL HISTORY: Thoracic back pain. Clinical concern for infection. COMPARISON STUDY: CT of the thoracic spine dated 10/07/2024. TECHNIQUE: MRI of the thoracic spine is performed utilizing various T1 and T2- weighted sequences in axial and sagittal planes. IV contrast was not administered for this examination. The examination is compromised by motion artifact. FINDINGS: Vertebral body height and alignment are maintained throughout the thoracic spine. Marrow signal intensity is heterogeneous. There are compression deformities of L1 and L2 with marrow edema. Retropulsion of fragments is seen at L1. See report of today's lumbar spine MRI for detailed lumbar findings. There is no MRI evidence of acute or subacute fracture involving the thoracic spine. The spinous processes appear intact. No destructive bony lesion is clearly seen. A small hemangioma is incidentally noted in the body of T7. Tiny anterior osteophytes are seen throughout. Disc desiccation and mild loss of height is seen throughout the thoracic region. There is no disc herniation or central canal stenosis seen throughout the thoracic spine. The thoracic spinal cord is normal in morphology and signal intensity. There is no MRI evidence of significant high-grade neural foraminal stenosis throughout the thoracic region. This is suboptimally assessed due to motion artifact. There is fatty atrophy of the paraspinous musculature. Fluid collections within the psoas musculature in the lumbar region are discussed on today's lumbar spinal MRI. No pleural effusion is identified. IMPRESSION: 1. No acute bony abnormality is seen involving the thoracic spine. 2. There are compression deformities at L1 and L2 with corresponding marrow edema and fluid collections in the adjacent psoas musculature. See report of today's lumbar MRI for detailed findings. 3. There is no disc herniation or central canal stenosis throughout the thoracic region. Electronically signed by: Lit Franco M.D. 10/12/2024 2:[address] 10/13/24 11:04 CT GUIDED RIGHT PSOAS FLUID COLLECTION ASPIRATION CLINICAL HISTORY: Right psoas muscle fluid collection COMPARISON: MR lumbar spine PROCEDURE: Procedure and risks were explained. Informed consent was obtained. A final timeout was completed. The patient was placed in a prone position on the CT exam table. The lumbar region was prepped and draped in sterile fashion. 1% lidocaine was utilized for skin anesthesia. Utilizing CT guidance, a 20-gauge and 18-gauge Chiba needle was advanced into the right psoas muscle fluid collection. 2 aspirates yielding scant bloody particulate fluid was obtained and sent to the lab for culture analysis. The needle was removed and Band-Aid applied. The patient tolerated the procedure well. Vital signs will be monitored postprocedure. IMPRESSION: Right psoas muscle fluid collection aspiration as above. Performed, dictated, and signed by Abhi Rodriguez PA-C; to be co-signed by Dr. Lit Franco. Electronically signed by: Lit Franco M.D. 10/13/2024 2:27 PM Lumbar Spine MRI 10/26/24 07:38 MRI OF THE LUMBAR SPINE WITHOUT CONTRAST CLINICAL HISTORY: Follow-up compression fracture, fluid collections. COMPARISON STUDY: Lumbar spine MRI October 12, 2024. Lumbar spine CT October 07, 2024. TECHNIQUE: Utilizing a 3 Otilia magnet and dedicated coil, multiplanar, multiecho imaging of the lumbar spine was performed without IV contrast. FINDINGS: For purposes of numbering on this exam, the L5-S1 disc space is assigned to axial image 29 of 31. Anterolisthesis of L4 and L5 is unchanged. L1, L2 and L3 compression fractures are similar in appearance to MRI of October 12, 2024. These are likely subacute. Severe loss of height at the L1 level is unchanged. Retropulsion is again noted. Associated edema has slightly decreased. Retropulsion results in moderate central canal stenosis, mild improved since prior exam. Patent AP diameter canal is 9 mm. There is moderate loss of height of the L3 vertebral body and mild loss of height of the L2 vertebral body. There are no acute fractures. There is no intracanalicular mass or fluid collection. The conus terminates at the lower L1 level. Peripherally T2 hypointense collections within the bilateral psoas muscles with associated edema are again noted. The right psoas collection has decreased in size, now measuring 2 x 1.1 cm. The left psoas collection measures 0.9 cm, similar in size. No new collections are present. L1-2: Retropulsion results in moderate central canal stenosis, slightly improved. Moderate to severe bilateral neural foraminal stenosis is again noted. L2-3: There is disc bulge with facet arthrosis and ligamentous hypertrophy. There is mild narrowing of the central canal and both neural foramen, unchanged. L3-4: There is minimal disc bulge with facet arthrosis and ligamentous hypertrophy. Central canal is patent. Moderate bilateral neural foraminal stenosis is unchanged. L4-5: Anterolisthesis is unchanged. There is facet arthrosis with ligamentous hypertrophy. Moderate central canal stenosis is unchanged. L5-S1: There is moderate facet arthrosis. There is mild disc bulge. The central canal is patent. Mild bilateral neural foraminal stenosis is unchanged. IMPRESSION: 1. No significant change in appearance of L1, L2 and L3 compression fractures since MRI of October 12, 2024. Stable retropulsion at the L1 level with interval decrease in associated edema. Slight improvement in moderate central canal stenosis at this level. 2. No acute lumbar spine fractures. 3. Redemonstration of intramuscular fluid collections within the bilateral psoas muscles. The right collection has mildly decreased in size. The small left collection is unchanged. These favor resolving hematomas. 4. Moderate multilevel degenerative disc disease and facet arthrosis within the lumbar spine, unchanged. ACT 112: Negative or not required by law. Electronically signed by: Caden Connolly M.D. 10/27/2024 4:19 PM PG Care Time/CCT Total # of Minutes Spent Total Time Spent with Patient: Total time spent is greater than 50% in coordination of care (as documented) at patient's floor/unit and/or counseling patient: I spent 125 minutes overall addressing this case: 15 min in medical data review/discussion with referring provider(s) and/or preparation for the visit 25 min in direct interaction with the patient/exam 50 min in Advance Care Planning/Goals of Care discussions as detailed above in note (must be >16min) 15 min in subsequent review and synthesis of assessment and plan 20 min communicating with other providers regarding the patient's case: primary team, oncology Advanced Care Planning [id number] Advanced Care Planning 30 Min [id number] Advanced Care Planning Additional 30 [place] [address] IN/OBS CONSULT LVL 5,80M (25 - SIGNIFICANT, SEPARATELY IDENTIFIABLE ) Patient Type New Medical Decision Making High Complexity Diagnoses Cancer related pain G89.3 Generalized anxiety disorder F41.1 Anxiety and depression F41.9; F32.A Weakness generalized R53.1 Palliative care by specialist Z51.5 Advanced care planning/counseling discussion Z71.89 Additional Codes Advanced Care Planning - 99245 Advanced Care Planning 30 Min: [id number] Advanced Care Planning 30 Min ([id number]) Advanced Care Planning - 56780 Advanced Care Planning Additional 30 Min: 01860 Advanced Care Planning Additional 30 Min ([id number]) Comment [id number], [id number]
--- NOTE | 2024-10-28 12:10 | Hospitalist Progress Note ---
Date of Service October 28, 2024 Assessment & Plan (1) Severe back pain: Plan: (1) Severe back pain: Plan: 79 yo F with type 2 diabetes, dyslipidemia, paroxysmal SVT, hypertension, GERD, osteoarthritis of both knees, AML, generalized anxiety disorder, spinal stenosis of lumbar region, persistent insomnia who was recently in the hospital for lumbar spine compression fracture and discharged to rehab comes back with severe back pain. Patient states at rehab she was having a lot of constipation and stool softeners were given since then she had a lot of back pain. The stool softeners relieved her constipation but the back pain got worse. She could not tolerate the back pain this reason she was came to the hospital today. She thinks she might had fever. Denies any bowel incontinence. She says sometimes she gets bladder incontinence but it is nothing new. Pain is not shooting down the legs. Ambulating with a walker but now the pain got worse. Denies any chest pain. No shortness of breath. No cough. No headache. No runny nose or sore throat. No difficulty swallowing. Last couple of days appetite is down. Last chemo was in August. She was supposed to get chemo on 09/29/2024 but because she is rehab it was held. Currently while resting seems comfortable and hemodynamics are okay. Severe back pain L1 and L3 compression fractures Staph epidermidis bacteremia Bilateral iliopsoas muscle fluid collections, likely infected Coming from rehab CT scan done in the ER shows same L1 L3 compression fractures patient's back pain not responding with pain management Discussed with Dr. Bergman (orthospine) In light of possible bacteremia, recommend repeat MRI of the spine Continue pain control, PT OT 10/12 MRI Lumbar spine reviewed: + fluid collections, edema iliopsoas, bilateral, likely infected Discussed with Dr. Bergman, agree with possible infected fluid collections around the lumbar spine Broaden antibiotic coverage with Zosyn in addition to daptomycin 10/[address] Bergman, recommend IR drainage of fluid collection in the lumbar spine Discussed with SARAH Rodriguez, IR drainage performed 10/16 Fluid drainage culture: positive for Staph epi - contacted ID - recommend to switch to vancomycin dose for poss. meningitis - discussed w/ pharmacy. dapto stopped, also zosyn to be stopped Dr. Bergman also updated - discussed with - no surgical intervention recommended further recommendations as per Dr. Bergman and ID Per ID Please continue on IV vancomycin to be adjusted based on vancomycin trough/AUC. She will require at least 6 to 8 weeks of IV antibiotics. I would also recommend repeating the MRI of the lumbar spine towards the end of treatment course. We would appreciate further assessment by the spine surgery for possible surgical intervention. Called lab to get sensitivities from [facility] obtained - sensitivities are back -> contacted ID - they plan to leave an updated note. Also discussed PICC line with ID and with the pt. Final ID recommendation pending 10/23 Final ID service recommendations: Patient admitted at [facility]: Since the spine surgical team is not planning for any surgical intervention, I would recommend continuing on IV vancomycin to complete a course of 8 weeks with anticipated end date of December 03, 2024. We will repeat MRI of the spine in 6 weeks from today. 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 MicrobiologyStaphylococcus epidermidis AntibioticVancomycin Dose per Pharmacy for Goal AUC 400-600 mg/L/hr End DateDec 03, 2024 Vascular access: Do not remove PICC line until the infectious disease physician approves Recommended followup imaging studies: MRI lumbar spine (Ordered by me in [employer] system) LABORATORY MONITORING: Lab TestFrequencyEnd Date BMP CBC with diff Vancomycin level(s) for AUC monitoringQ weekDec 03, 2024 PROVIDERS: Following ID PhysicianID clinic follow-up date José Manuel Magaña weeks Patient having severe back pain today Add Tylenol 1 g 3 times daily scheduled Patient also having confusion likely secondary to delirium, possible hospital delirium, medication related DC Ativan Lower dose of Dilaudid IV Delirium prevention strategies Discussed with RN 10/24 Patient now oriented, answering questions appropriately Continue as needed pain medications Back pain improving Continue IV vancomycin IV team followed up for PICC line placement 10/25 having mostly buttock pain and bilateral inguinal pain today with movement repeat MRI tomorrow 10/26 MRI Lumbar spine ordered 10/27 Back pain seems to be improving today Patient would like to hold off on lumbar spine MRI Will continue to monitor for now Continue scheduled Tylenol, IV Dilaudid and oxycodone as needed Palliative service consulted for goals of care also for input regarding pain management Continue IV vancomycin until middle november via PICC line 10/28 lumbar spine MRI revealing stable fractures, improving edema, and decrease in size of fluid collection Pain still significant, palliative care service to evaluate patient today Seems to be very motivated and tried to standing and ambulating in the hallways yesterday Staph epidermidis bacteremia Initial blood culture (10/07): Staph epidermidis 1 out of 2 bottles Repeat blood cultures (10/10): Staph epidermidis 1 out of 2 bottles Echocardiogram: No mention of possible vegetation ID service recommends removal of indwelling port, port removed on 10/14 third set of blood cultures (10/15): NEGATIVE Lower abdominal Discomfort UA: Negative for UTI KUB: No obstruction, minimal fecal load -- resolved Hypokalemia replace and monitor AML undergoing chemotherapy History of pancytopenia WBC 6.5. Hemoglobin 10.1. Platelets 340 Currently undergoing monthly chemotherapy with decitabine/venetoclax Last chemo was in August. This month chemo was delayed because patient was in rehab Has appointment with Dr. Gaines on 10/29/2024 per last admission Continue suppressive antibiotics Levaquin, voriconazole and acyclovir 10/14 CBC stable Discussed with Dr. Gaines, patient is in remission from AML according to her she agrees with a port removal discussion of further chemotherapy with patient and family after patient recovers from this episode 10/[address] Gaines may DC prophylactic Levaquin but continue acyclovir Hypertension On amlodipine Last admit amlodipine was held for soft blood pressures Continue amlodipine for now. On furosemide with potassium supplements -- hold Lasix for now as patient is on the dry side Hyperlipidemia On statin Anxiety/depression On citalopram and buspirone -- Psych service consulted recommend to DC buspirone, increase citalopram, start mirtazapine --seems to be in good spirits today Continue to monitor closely Diabetes Diet controlled current HbA1c levels: 6.4 Sliding scale for now Recent A port placement supposed to followup with general surgery for evaluation Gen Surg consulted -- (+) bacteremia -- ID service consulted, recommend removal of port A-port removed 10/14/2024 DVT prophylaxis Lovenox Disposition Med Surg Full Code Disposition pending Admission and Anticipated Discharge Date Admission Date: October 08, 2024 Subjective seen sitting up in bedside chair, not in distress Awake and alert, seems to be answering questions appropriately States she is having significant back pain again this morning But was able to get up and ambulate in the hallways with PT yesterday No other new symptoms Review of Systems Review of Systems: all noted and negative except for above Physical Exam Physical Exam: General- oriented x 2, not in distress, speaks in sentences with no effort or accessory muscle use Eyes- anicteric Neck- no JVD Lungs- clear breath sounds bilaterally, no rales/wheezes Heart- normal rate, regular rhythm; no murmurs Abdomen- normal bowel sounds, nondistended, soft, nontender Extremities- no pretibial edema, no calf tenderness Neuro- alert, oriented x 2; no gross focal neurologic deficits Skin- warm & dry Results & Data Results & Data Vital Signs (Past 12 Hours) Vital Signs Temp Pulse Resp BP Pulse Ox O2 Del Method 10/28/24 07:01 36.5 C 90 16 115/68 94 Room Air all noted and reviewed including below
[2024-10-29 06:58] LABS: Anion Gap 12.0 (3-11); Blood Urea Nitrogen 9.0 mg/dl (6-23); Calcium 8.6 mg/dl (8.6-10.3); Carbon Dioxide 22.0 mmol/L (21-32); Chloride 105.0 mmol/L (98-107); Creatinine Clr Calc Pharmacy 111.4 ml/min; Glucose 111.0 mg/dl (70-99(Fasting)); Potassium 3.6 mmol/L (3.5-5.1); Sodium 139.0 mmol/L (136-145)
--- NOTE | 2024-10-29 16:00 | Hospitalist Progress Note ---
Date of Service October 29, 2024 Assessment & Plan (1) Severe back pain: Plan: (1) Severe back pain: Plan: 79 yo F with type 2 diabetes, dyslipidemia, paroxysmal SVT, hypertension, GERD, osteoarthritis of both knees, AML, generalized anxiety disorder, spinal stenosis of lumbar region, persistent insomnia who was recently in the hospital for lumbar spine compression fracture and discharged to rehab comes back with severe back pain. Patient states at rehab she was having a lot of constipation and stool softeners were given since then she had a lot of back pain. The stool softeners relieved her constipation but the back pain got worse. She could not tolerate the back pain this reason she was came to the hospital today. She thinks she might had fever. Denies any bowel incontinence. She says sometimes she gets bladder incontinence but it is nothing new. Pain is not shooting down the legs. Ambulating with a walker but now the pain got worse. Denies any chest pain. No shortness of breath. No cough. No headache. No runny nose or sore throat. No difficulty swallowing. Last couple of days appetite is down. Last chemo was in August. She was supposed to get chemo on 09/29/2024 but because she is rehab it was held. Currently while resting seems comfortable and hemodynamics are okay. Severe back pain L1 and L3 compression fractures Staph epidermidis bacteremia Bilateral iliopsoas muscle fluid collections, likely infected Coming from rehab CT scan done in the ER shows same L1 L3 compression fractures patient's back pain not responding with pain management Discussed with Dr. Bergman (orthospine) In light of possible bacteremia, recommend repeat MRI of the spine Continue pain control, PT OT 10/12 MRI Lumbar spine reviewed: + fluid collections, edema iliopsoas, bilateral, likely infected Discussed with Dr. Bergman, agree with possible infected fluid collections around the lumbar spine Broaden antibiotic coverage with Zosyn in addition to daptomycin 10/[address] Bergman, recommend IR drainage of fluid collection in the lumbar spine Discussed with SARAH Rodriguez, IR drainage performed 10/16 Fluid drainage culture: positive for Staph epi - contacted ID - recommend to switch to vancomycin dose for poss. meningitis - discussed w/ pharmacy. dapto stopped, also zosyn to be stopped Dr. Bergman also updated - discussed with - no surgical intervention recommended further recommendations as per Dr. Bergman and ID Per ID Please continue on IV vancomycin to be adjusted based on vancomycin trough/AUC. She will require at least 6 to 8 weeks of IV antibiotics. I would also recommend repeating the MRI of the lumbar spine towards the end of treatment course. We would appreciate further assessment by the spine surgery for possible surgical intervention. Called lab to get sensitivities from [facility] obtained - sensitivities are back -> contacted ID - they plan to leave an updated note. Also discussed PICC line with ID and with the pt. Final ID recommendation pending 10/23 Final ID service recommendations: Patient admitted at [facility]: Since the spine surgical team is not planning for any surgical intervention, I would recommend continuing on IV vancomycin to complete a course of 8 weeks with anticipated end date of December 03, 2024. We will repeat MRI of the spine in 6 weeks from today. 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 MicrobiologyStaphylococcus epidermidis AntibioticVancomycin Dose per Pharmacy for Goal AUC 400-600 mg/L/hr End DateDec 03, 2024 Vascular access: Do not remove PICC line until the infectious disease physician approves Recommended followup imaging studies: MRI lumbar spine (Ordered by me in [employer] system) LABORATORY MONITORING: Lab TestFrequencyEnd Date BMP CBC with diff Vancomycin level(s) for AUC monitoringQ weekDec 03, 2024 PROVIDERS: Following ID PhysicianID clinic follow-up date José Manuel moore weeks Patient having severe back pain today Add Tylenol 1 g 3 times daily scheduled Patient also having confusion likely secondary to delirium, possible hospital delirium, medication related DC Ativan Lower dose of Dilaudid IV Delirium prevention strategies Discussed with RN 10/29 In summary, patient presents as a readmission with severe low back pain and difficulty with minimal movements she has a history of AML status post chemo, and also had a recent port placement for future chemo initially found to have lumbar spinal fractures, with bacteremia Persistent low back pain led to repeat lumbar spine MRI which showed bilateral psoas abscess fluid collection suggestive of abscess ID recommended 4 weeks of IV vancomycin patient having difficulty with pain control which includes as needed IV Dilaudid and oxycodone, complicated by intermittent delirium palliative care service consulted, recommending scheduled oxycodone every 6 hours psychiatry service also consulted due to concerns of worsening depression in the setting of prolonged illness, psych meds adjusted Continue pain control, pain management Plan [facility] once pain is successfully controlled and patient participating with physical therapy Staph epidermidis bacteremia Initial blood culture (10/07): Staph epidermidis 1 out of 2 bottles Repeat blood cultures (10/10): Staph epidermidis 1 out of 2 bottles Echocardiogram: No mention of possible vegetation ID service recommends removal of indwelling port, port removed on 10/14 third set of blood cultures (10/15): NEGATIVE Lower abdominal Discomfort UA: Negative for UTI KUB: No obstruction, minimal fecal load -- resolved Hypokalemia replace and monitor AML undergoing chemotherapy History of pancytopenia WBC 6.5. Hemoglobin 10.1. Platelets 340 Currently undergoing monthly chemotherapy with decitabine/venetoclax Last chemo was in August. This month chemo was delayed because patient was in rehab Has appointment with Dr. Gaines on 10/29/2024 per last admission Continue suppressive antibiotics Levaquin, voriconazole and acyclovir 10/14 CBC stable Discussed with Dr. Gaines, patient is in remission from AML according to her she agrees with a port removal discussion of further chemotherapy with patient and family after patient recovers from this episode 10/[address] Gaines may DC prophylactic Levaquin but continue acyclovir Hypertension On amlodipine Last admit amlodipine was held for soft blood pressures Continue amlodipine for now. On furosemide with potassium supplements -- hold Lasix for now as patient is on the dry side Hyperlipidemia On statin Anxiety/depression On citalopram and buspirone -- Psych service consulted recommend to DC buspirone, increase citalopram, start mirtazapine --seems to be in good spirits today Continue to monitor closely Diabetes Diet controlled current HbA1c levels: 6.4 Sliding scale for now Recent A port placement supposed to followup with general surgery for evaluation Gen Surg consulted -- (+) bacteremia -- ID service consulted, recommend removal of port A-port removed 10/14/2024 DVT prophylaxis Lovenox Disposition Med Surg Full Code Disposition pending return to [facility] once pain adequately controlled with PO meds Admission and Anticipated Discharge Date Admission Date: October 08, 2024 Subjective seen resting in bed, comfortable, awake and alert States pain seems to be manageable this morning No fevers or chills No chest pain, dizziness No other new symptoms Review of Systems Review of Systems: all noted and negative except for above Physical Exam Physical Exam: General- oriented x 3, not in distress, speaks in sentences with no effort or accessory muscle use Eyes- anicteric Neck- no JVD Lungs- clear breath sounds bilaterally, no rales/wheezes Heart- normal rate, regular rhythm; no murmurs Abdomen- normal bowel sounds, nondistended, soft, no tenderness Extremities- no pretibial edema, no calf tenderness Neuro- alert, oriented x 3; no gross focal neurologic deficits Skin- warm & dry Results & Data Results & Data Vital Signs (Past 12 Hours) Vital Signs Temp Pulse Resp BP Pulse Ox O2 Del Method 10/29/24 15:09 36.8 C 91 H 16 100/63 92 Room Air 10/29/24 10:29 98 H 146/86 H 10/29/24 07:22 36.9 C 91 H 16 100/60 92 Room Air 10/29/24 06:08 89 94 Room Air all noted and reviewed including below
--- NOTE | 2024-10-29 20:01 | Communication Note ---
Date of Service: October 29, 2024 Palliative Med Brief Note Since moving to scheduled OxyIR, Pat has not required any prn doses of Dilaudid IV or Oxy IR. Feeling more comfortable but appetite still low. Awaiting poss dc back to [facility] Long d/w daughter Vesna 10/28 - please seethe 10/28/24 palliatve med note for more details. No changes today. if she continues tolerating OxyIR on schedule, a trial of long acting oxycontin could be reasonable Thank you for allowing us to participate in the ongoing care of this patient. Please page with any additional concerns. Idris Harvey DNP Director, Palliative Medicine
[2024-10-30 06:32] LABS: Anion Gap 7.0 (3-11); Blood Urea Nitrogen 12.0 mg/dl (6-23); Calcium 8.0 mg/dl (8.6-10.3); Carbon Dioxide 26.0 mmol/L (21-32); Chloride 110.0 mmol/L (98-107); Creatinine Clr Calc Pharmacy 118.1 ml/min; Glucose 80.0 mg/dl (70-99(Fasting)); Potassium 3.3 mmol/L (3.5-5.1); Sodium 143.0 mmol/L (136-145)
[2024-10-30] MEDS: CYCLOBENZAPRINE HCL 5 MG TAB PO SCH (14:31)
--- NOTE | 2024-10-30 17:25 | Hospitalist Progress Note ---
Date of Service October 30, 2024 Assessment & Plan (1) Severe back pain: Plan: 79 yo F with type 2 diabetes, dyslipidemia, paroxysmal SVT, hypertension, GERD, osteoarthritis of both knees, AML, generalized anxiety disorder, spinal stenosis of lumbar region, persistent insomnia who was recently in the hospital for lumbar spine compression fracture and discharged to rehab comes back with severe back pain. Severe back pain L1 and L3 compression fractures Staph epidermidis bacteremia Bilateral iliopsoas muscle fluid collections, likely infected -Coming from rehab -CT scan done in the ER shows same L1 L3 compression fractures -MRI Lumbar spine reviewed: + fluid collections, edema iliopsoas, bilateral, likely infected -s/p IR drainage of lumbar spine, per ortho no surgical intervetnion Plan- -ortho consult, appreciate recs -appreciate IR assistance with case -will need 6-8 weeks of IV vancomycin per ID, repeat MRI at end of treatment course -awaiting rehab placement, PICC line placed -continue oxycodone, will transition to long acting tomorrow -start cyclobenzaprine for lower back spasms Staph epidermidis bacteremia -Initial blood culture (10/07): Staph epidermidis 1 out of 2 bottles -Repeat blood cultures (10/10): Staph epidermidis 1 out of 2 bottles -Echocardiogram: No mention of possible vegetation -ID service recommends removal of indwelling port, port removed on 10/14 -third set of blood cultures (10/15): NEGATIVE Lower abdominal Discomfort -resolved Hypokalemia -replenished AML undergoing chemotherapy History of pancytopenia -WBC 6.5. Hemoglobin 10.1. Platelets 340 -Currently undergoing monthly chemotherapy with decitabine/venetoclax -Last chemo was in August. -This month chemo was delayed because patient was in rehab -Has appointment with Dr. Gaines on 10/29/2024 per last admission -Continue suppressive antibiotics Levaquin, voriconazole and acyclovir -continue acyclovir Hypertension On amlodipine Last admit amlodipine was held for soft blood pressures Continue amlodipine for now. Hyperlipidemia On statin Anxiety/depression On citalopram and buspirone -- Psych service consulted recommend to DC buspirone, increase citalopram, start mirtazapine --seems to be in good spirits today Continue to monitor closely Diabetes Diet controlled current HbA1c levels: 6.4 Sliding scale for now Recent A port placement -port removed I spent a total of 50 minutes in direct patient care, including [id number] time with the patient and/or family, reviewing medical records, ordering and reviewing diagnostic tests, and coordinating care with other healthcare providers. This time includes: history taking, physical examination, medical decision making, counseling, ECG interpretation, imaging interpretation, lab interpretation, orders, and education, excluding time spent in the performance of separately billed services. Admission and Anticipated Discharge Date Admission Date: October 08, 2024 Subjective Patient seen and examined at bedside. Patient doing better this morning. Feels ready for rehab. Still having spastic pain in lower back. Review of Systems Review of Systems: CONSTITUTIONAL: weakness EYES: Patient denies any visual symptoms. EARS, NOSE, AND THROAT: No difficulties with hearing. No symptoms of rhinitis or sore throat. CARDIOVASCULAR: Patient denies chest pains, palpitations, orthopnea and paroxysmal nocturnal dyspnea. RESPIRATORY: No dyspnea on exertion, no wheezing or cough. GI: No nausea, vomiting, diarrhea, constipation, abdominal pain, hematochezia or melena. : No urinary hesitancy or dribbling. No nocturia or urinary frequency. No abnormal urethral discharge. MUSCULOSKELETAL: lower back pain NEUROLOGIC: No chronic headaches, no seizures. Patient denies numbness, tingling or weakness. PSYCHIATRIC: Patient denies problems with mood disturbance. No problems with anxiety. ENDOCRINE: No excessive urination or excessive thirst. DERMATOLOGIC: Patient denies any rashes or skin changes. Physical Exam Physical Exam: Gen: A&O 3 NAD HEENT: NCAT, EOMI, not icteric. External ears normal. No rhinorrhea. Moist mucous membranes. Neck: Supple, full range of motion, no observable masses, No meningeal sign. Lungs: No Respiratory distress. CV: RRR, no edema. Abdomen: Soft, nondistended, No rebound tenderness. MSK: tenderness in lower back to palpation Skin: No rashes, petechiae, lesions. Normal color per patient. Neuro: Normal Gait, Grossly intact. Psych: Appropriate for situation. Results & Data Results & Data Vital Signs (Past 12 Hours) Vital Signs Temp Pulse Resp BP Pulse Ox O2 Del Method 10/30/24 15:54 36.8 C 90 17 106/67 95 Room Air 10/30/24 08:23 36.5 C 87 17 128/79 96 Room Air Laboratory Results -personally reviewed, K of 3.3 replenished, creatinine at baseline Medications Administered Acetaminophen (Acetaminophen 500 Mg Tab) 1,000 mg PO Q8H [place] Stop: 11/22/24 09:59 Last Admin: 10/30/24 09:01 Dose: 1,000 mg Documented By: Admin: 10/30/24 01:18 Dose: 1,000 mg Documented By: je Admin: 10/29/24 17:32 Dose: 1,000 mg Documented By: Admin: 10/29/24 10:30 Dose: 1,000 mg Documented By: Admin: 10/29/24 05:05 Dose: 1,000 mg Documented By: Admin: 10/29/24 02:16 Dose: Not Given Documented By: Admin: 10/28/24 17:57 Dose: 1,000 mg Documented By: Admin: 10/28/24 10:13 Dose: 1,000 mg Documented By: Admin: 10/28/24 01:23 Dose: 1,000 mg Documented By: Admin: 10/27/24 18:04 Dose: Not Given Documented By: cak Admin: 10/27/24 12:24 Dose: 1,000 mg Documented By: Admin: 10/27/24 01:07 Dose: 1,000 mg Documented By: Admin: 10/26/24 17:20 Dose: 1,000 mg Documented By: Admin: 10/26/24 10:05 Dose: 1,000 mg Documented By: Admin: 10/26/24 01:12 Dose: 1,000 mg Documented By: Admin: 10/25/24 17:16 Dose: 1,000 mg Documented By: Admin: 10/25/24 09:58 Dose: 1,000 mg Documented By: Admin: 10/25/24 01:00 Dose: 1,000 mg Documented By: Admin: 10/24/24 17:30 Dose: 1,000 mg Documented By: Admin: 10/24/24 10:00 Dose: 1,000 mg Documented By: Admin: 10/24/24 02:16 Dose: 1,000 mg Documented By: Admin: 10/23/24 18:00 Dose: 1,000 mg Documented By: Admin: 10/23/24 09:45 Dose: 1,000 mg Documented By: BRIANNA Acyclovir (Acyclovir 400 Mg Tab) 400 mg PO BID [place] Stop: 11/07/24 08:59 Last Admin: 10/30/24 09:02 Dose: 400 mg Documented By: Admin: 10/29/24 20:54 Dose: 400 mg Documented By: je Admin: 10/29/24 10:30 Dose: 400 mg Documented By: Admin: 10/28/24 19:40 Dose: 400 mg Documented By: Admin: 10/28/24 08:46 Dose: 400 mg Documented By: Admin: 10/27/24 20:10 Dose: 400 mg Documented By: Admin: 10/27/24 09:29 Dose: 400 mg Documented By: cak Admin: 10/26/24 21:08 Dose: 400 mg Documented By: Admin: 10/26/24 08:09 Dose: 400 mg Documented By: Admin: 10/25/24 21:56 Dose: 400 mg Documented By: Admin: 10/25/24 07:39 Dose: 400 mg Documented By: Admin: 10/24/24 21:16 Dose: 400 mg Documented By: Admin: 10/24/24 07:28 Dose: 400 mg Documented By: Admin: 10/23/24 19:42 Dose: 400 mg Documented By: Admin: 10/23/24 09:39 Dose: 400 mg Documented By: Admin: 10/22/24 21:26 Dose: 400 mg Documented By: Admin: 10/22/24 09:14 Dose: 400 mg Documented By: beny Admin: 10/21/24 20:37 Dose: 400 mg Documented By: je Admin: 10/21/24 07:47 Dose: 400 mg Documented By: Admin: 10/20/24 21:38 Dose: 400 mg Documented By: Admin: 10/20/24 07:53 Dose: 400 mg Documented By: Admin: 10/19/24 21:58 Dose: 400 mg Documented By: Admin: 10/19/24 08:12 Dose: 400 mg Documented By: Admin: 10/18/24 21:46 Dose: 400 mg Documented By: snc Admin: 10/18/24 08:11 Dose: 400 mg Documented By: Admin: 10/17/24 21:50 Dose: 400 mg Documented By: snc Admin: 10/17/24 08:57 Dose: 400 mg Documented By: Admin: 10/16/24 20:38 Dose: 400 mg Documented By: Admin: 10/16/24 09:17 Dose: 400 mg Documented By: Admin: 10/15/24 21:03 Dose: 400 mg Documented By: rodriguez Admin: 10/15/24 09:44 Dose: 400 mg Documented By: Admin: 10/14/24 20:19 Dose: 400 mg Documented By: Admin: 10/14/24 09:59 Dose: Not Given Documented By: Admin: 10/13/24 20:17 Dose: 400 mg Documented By: Admin: 10/13/24 08:45 Dose: 400 mg Documented By: Admin: 10/12/24 20:21 Dose: 400 mg Documented By: Admin: 10/12/24 09:03 Dose: 400 mg Documented By: Admin: 10/11/24 21:38 Dose: 400 mg Documented By: Admin: 10/11/24 09:05 Dose: 400 mg Documented By: baljitk Admin: 10/10/24 21:08 Dose: 400 mg Documented By: Admin: 10/10/24 08:52 Dose: 400 mg Documented By: rhonda Admin: 10/09/24 20:22 Dose: 400 mg Documented By: Admin: 10/09/24 09:50 Dose: 400 mg Documented By: Admin: 10/08/24 20:37 Dose: 400 mg Documented By: Admin: 10/08/24 08:34 Dose: 400 mg Documented By: HUNTER Amlodipine Besylate (Amlodipine Besylate 5 Mg Tab) 5 mg PO QAM [place] Stop: 11/07/24 08:59 Last Admin: 10/30/24 09:02 Dose: 5 mg Documented By: Admin: 10/29/24 10:31 Dose: 5 mg Documented By: Admin: 10/28/24 08:46 Dose: 5 mg Documented By: Admin: 10/27/24 09:28 Dose: 5 mg Documented By: cak Admin: 10/26/24 08:09 Dose: 5 mg Documented By: K Admin: 10/25/24 07:38 Dose: 5 mg Documented By: Admin: 10/24/24 07:28 Dose: 5 mg Documented By: Admin: 10/23/24 09:39 Dose: 5 mg Documented By: Admin: 10/22/24 09:15 Dose: 5 mg Documented By: beny Admin: 10/21/24 07:33 Dose: 5 mg Documented By: Admin: 10/20/24 07:53 Dose: 5 mg Documented By: Admin: 10/19/24 08:12 Dose: 5 mg Documented By: Admin: 10/18/24 08:11 Dose: 5 mg Documented By: Admin: 10/17/24 08:57 Dose: 5 mg Documented By: Admin: 10/16/24 09:18 Dose: 5 mg Documented By: Admin: 10/15/24 09:43 Dose: 5 mg Documented By: Admin: 10/14/24 12:56 Dose: 5 mg Documented By: Admin: 10/13/24 08:45 Dose: 5 mg Documented By: Admin: 10/12/24 09:03 Dose: 5 mg Documented By: Admin: 10/11/24 09:05 Dose: 5 mg Documented By: rhonda Admin: 10/10/24 08:52 Dose: 5 mg Documented By: rhonda Admin: 10/09/24 09:51 Dose: 5 mg Documented By: Admin: 10/08/24 08:36 Dose: 5 mg Documented By: HUNTER Atorvastatin Calcium (Atorvastatin 20 Mg Tab) 20 mg PO HS [place] Stop: 11/07/24 20:59 Last Admin: 10/10/24 21:08 Dose: 20 mg Documented By: Admin: 10/09/24 20:22 Dose: 20 mg Documented By: Admin: 10/08/24 20:37 Dose: 20 mg Documented By: MARILEE Citalopram Hydrobromide (Citalopram 20 Mg Tab) 20 mg PO QAM [place] Stop: 11/26/24 08:59 Last Admin: 10/30/24 09:02 Dose: 20 mg Documented By: Admin: 10/29/24 10:30 Dose: 20 mg Documented By: Admin: 10/28/24 08:46 Dose: 20 mg Documented By: Admin: 10/27/24 09:28 Dose: 20 mg Documented By: juliana Cyanocobalamin (Cyanocobalamin (B-12) 500 Mcg Tablet) 1,000 mcg PO QAM [place] Stop: 11/21/24 09:59 Last Admin: 10/30/24 09:02 Dose: 1,000 mcg Documented By: Admin: 10/29/24 10:31 Dose: 1,000 mcg Documented By: Admin: 10/28/24 08:47 Dose: 1,000 mcg Documented By: Admin: 10/27/24 09:28 Dose: 1,000 mcg Documented By: juliana Admin: 10/26/24 08:09 Dose: 1,000 mcg Documented By: Admin: 10/25/24 07:38 Dose: 1,000 mcg Documented By: Admin: 10/24/24 07:29 Dose: 1,000 mcg Documented By: Admin: 10/23/24 09:40 Dose: 1,000 mcg Documented By: Admin: 10/22/24 11:48 Dose: Not Given Documented By: NISA Cyclobenzaprine HCl (Cyclobenzaprine Hcl 5 Mg Tab) 5 mg PO TID [place] Stop: 11/29/24 13:59 Last Admin: 10/30/24 14:31 Dose: 5 mg Documented By: JACK Enoxaparin Sodium (Enoxaparin Inj 40 Mg/0.4 Ml Syr) 40 mg SQ Q24H [place] Stop: 11/07/24 08:59 Last Admin: 10/30/24 09:02 Dose: 40 mg Documented By: Admin: 10/29/24 10:31 Dose: 40 mg Documented By: Admin: 10/28/24 08:46 Dose: 40 mg Documented By: Admin: 10/27/24 09:29 Dose: 40 mg Documented By: juliana Admin: 10/26/24 08:03 Dose: Not Given Documented By: Admin: 10/25/24 07:39 Dose: Not Given Documented By: Admin: 10/13/24 08:46 Dose: Not Given Documented By: Admin: 10/12/24 09:04 Dose: 40 mg Documented By: Admin: 10/11/24 09:06 Dose: 40 mg Documented By: rhonda Admin: 10/10/24 08:52 Dose: 40 mg Documented By: rhonda Admin: 10/09/24 09:51 Dose: 40 mg Documented By: Admin: 10/08/24 08:37 Dose: 40 mg Documented By: HUNTER Gabapentin (Gabapentin 100 Mg Cap) 100 mg PO BID [place] Stop: 11/07/24 08:59 Last Admin: 10/30/24 09:02 Dose: 100 mg Documented By: Admin: 10/29/24 20:54 Dose: 100 mg Documented By: je Admin: 10/29/24 11:13 Dose: 100 mg Documented By: Admin: 10/28/24 19:40 Dose: 100 mg Documented By: Admin: 10/28/24 08:46 Dose: 100 mg Documented By: Admin: 10/27/24 20:10 Dose: 100 mg Documented By: Admin: 10/27/24 09:28 Dose: 100 mg Documented By: cak Admin: 10/26/24 21:09 Dose: 100 mg Documented By: Admin: 10/26/24 08:09 Dose: 100 mg Documented By: Admin: 10/25/24 21:56 Dose: 100 mg Documented By: Admin: 10/25/24 07:38 Dose: 100 mg Documented By: Admin: 10/24/24 21:17 Dose: 100 mg Documented By: Admin: 10/24/24 07:29 Dose: 100 mg Documented By: Admin: 10/23/24 19:41 Dose: 100 mg Documented By: Admin: 10/23/24 09:41 Dose: 100 mg Documented By: Admin: 10/22/24 21:27 Dose: 100 mg Documented By: Admin: 10/22/24 09:14 Dose: 100 mg Documented By: beny Admin: 10/21/24 20:37 Dose: 100 mg Documented By: je Admin: 10/21/24 07:34 Dose: 100 mg Documented By: Admin: 10/20/24 21:39 Dose: 100 mg Documented By: Admin: 10/20/24 07:53 Dose: 100 mg Documented By: Admin: 10/19/24 21:58 Dose: 100 mg Documented By: Admin: 10/19/24 08:13 Dose: 100 mg Documented By: Admin: 10/18/24 21:46 Dose: 100 mg Documented By: snc Admin: 10/18/24 08:12 Dose: 100 mg Documented By: Admin: 10/17/24 21:50 Dose: 100 mg Documented By: snc Admin: 10/17/24 08:56 Dose: 100 mg Documented By: Admin: 10/16/24 20:38 Dose: 100 mg Documented By: Admin: 10/16/24 09:13 Dose: 100 mg Documented By: Admin: 10/15/24 21:03 Dose: 100 mg Documented By: ksy Admin: 10/15/24 09:43 Dose: 100 mg Documented By: Admin: 10/14/24 20:19 Dose: 100 mg Documented By: Admin: 10/14/24 09:59 Dose: Not Given Documented By: Admin: 10/13/24 20:17 Dose: 100 mg Documented By: Admin: 10/13/24 08:44 Dose: 100 mg Documented By: Admin: 10/12/24 20:21 Dose: 100 mg Documented By: Admin: 10/12/24 09:03 Dose: 100 mg Documented By: Admin: 10/11/24 21:29 Dose: Not Given Documented By: Admin: 10/11/24 09:06 Dose: 100 mg Documented By: rhonda Admin: 10/10/24 20:58 Dose: Not Given Documented By: Admin: 10/10/24 08:52 Dose: 100 mg Documented By: [email or web address] Admin: 10/09/24 20:19 Dose: 100 mg Documented By: Admin: 10/09/24 09:52 Dose: 100 mg Documented By: Admin: 10/08/24 20:38 Dose: 100 mg Documented By: Admin: 10/08/24 08:35 Dose: 100 mg Documented By: SLPrasanth Heparin Sodium (Beef Lung) (Heparin 10 Unit/Ml 5 Ml Flush) 5 ml FLUSH PRN PRN PRN Reason: Flush Stop: 11/23/24 17:29 Last Admin: 10/30/24 05:50 Dose: 5 ml Documented By: Admin: 10/29/24 05:20 Dose: 5 ml Documented By: Admin: 10/28/24 05:28 Dose: 5 ml Documented By: Admin: 10/27/24 20:13 Dose: 5 ml Documented By: Admin: 10/27/24 02:19 Dose: 5 ml Documented By: Admin: 10/26/24 08:08 Dose: 5 ml Documented By: Admin: 10/25/24 22:00 Dose: 5 ml Documented By: Admin: 10/24/24 18:55 Dose: 5 ml Documented By: LMC Heparin Sodium (Porcine) (Heparin 100 Unit/Ml 5ml Flush) 5 ml FLUSH PRN PRN PRN Reason: Flush Stop: 11/07/24 03:03 Last Admin: 10/23/24 19:43 Dose: 5 ml Documented By: Admin: 10/12/24 05:22 Dose: 5 ml Documented By: Admin: 10/09/24 10:11 Dose: 5 ml Documented By: ARTEMIO Hydromorphone HCl (Hydromorphone Inj 0.5 Mg/0.5 Ml Syr) 0.5 mg IV Q4H PRN PRN Reason: Severe Pain (Scale 7, 8, 9,10) Stop: 11/09/24 19:18 Last Admin: 10/28/24 05:30 Dose: 0.5 mg Documented By: Admin: 10/28/24 01:24 Dose: 0.5 mg Documented By: Admin: 10/27/24 20:12 Dose: 0.5 mg Documented By: Admin: 10/27/24 10:56 Dose: 0.5 mg Documented By: Admin: 10/27/24 06:39 Dose: 0.5 mg Documented By: Admin: 10/26/24 22:45 Dose: 0.5 mg Documented By: NESTOR Promethazine HCl (Phenergan) 6.25 mg in 50.25 mls @ 201 mls/hr IV Q6H PRN PRN Reason: Nausea And Vomiting Stop: 11/08/24 08:11 Last Infusion: 10/26/24 23:00 Dose: Infused Documented By: Admin: 10/26/24 22:45 Dose: 201 mls/hr Documented By: Infusion: 10/25/24 22:06 Dose: Infused Documented By: Admin: 10/25/24 21:51 Dose: 201 mls/hr Documented By: Infusion: 10/24/24 21:56 Dose: Infused Documented By: Admin: 10/24/24 21:41 Dose: 201 mls/hr Documented By: Infusion: 10/11/24 08:20 Dose: Infused Documented By: baljitk Admin: 10/11/24 08:04 Dose: 201 mls/hr Documented By: rhonda Infusion: 10/10/24 09:27 Dose: Infused Documented By: baljitk Admin: 10/10/24 07:56 Dose: 201 mls/hr Documented By: rhonda Infusion: 10/09/24 10:19 Dose: Infused Documented By: Admin: 10/09/24 09:35 Dose: 201 mls/hr Documented By: ARTEMIO Vancomycin HCl 750 mg/ Sodium (Chloride) 265 mls @ 200 mls/hr IV Q8H [place] Stop: 12/03/24 23:59 Last Infusion: 10/30/24 16:06 Dose: Infused Documented By: Admin: 10/30/24 14:31 Dose: 200 mls/hr Documented By: Infusion: 10/30/24 07:22 Dose: Infused Documented By: Admin: 10/30/24 05:52 Dose: 200 mls/hr Documented By: je Infusion: 10/29/24 22:37 Dose: Infused Documented By: je Admin: 10/29/24 21:00 Dose: 200 mls/hr Documented By: je Infusion: 10/29/24 16:06 Dose: Infused Documented By: juliana Admin: 10/29/24 14:36 Dose: 200 mls/hr Documented By: Infusion: 10/29/24 06:47 Dose: Infused Documented By: Admin: 10/29/24 05:06 Dose: 200 mls/hr Documented By: Infusion: 10/29/24 00:05 Dose: Infused Documented By: Admin: 10/28/24 22:45 Dose: 200 mls/hr Documented By: Infusion: 10/28/24 15:47 Dose: Infused Documented By: Admin: 10/28/24 14:27 Dose: 200 mls/hr Documented By: Infusion: 10/28/24 07:07 Dose: Infused Documented By: Admin: 10/28/24 05:28 Dose: 200 mls/hr Documented By: Infusion: 10/28/24 00:10 Dose: Infused Documented By: Admin: 10/27/24 22:50 Dose: 200 mls/hr Documented By: Infusion: 10/27/24 16:18 Dose: Infused Documented By: Admin: 10/27/24 14:17 Dose: 200 mls/hr Documented By: DANUTA Insulin Aspart (Insulin Aspart Per Unit Charge) 0 units SC ACHS [place] Stop: 11/13/24 05:59 Last Admin: 10/30/24 17:02 Dose: Not Given Documented By: Admin: 10/30/24 12:09 Dose: Not Given Documented By: Admin: 10/30/24 07:43 Dose: Not Given Documented By: Admin: 10/29/24 20:55 Dose: Not Given Documented By: je Co-signed By: JULIEN Admin: 10/29/24 16:58 Dose: Not Given Documented By: Admin: 10/29/24 11:27 Dose: Not Given Documented By: Admin: 10/29/24 09:01 Dose: Not Given Documented By: Admin: 10/28/24 20:37 Dose: Not Given Documented By: Admin: 10/28/24 16:37 Dose: Not Given Documented By: Admin: 10/28/24 12:04 Dose: Not Given Documented By: Admin: 10/28/24 07:55 Dose: Not Given Documented By: Admin: 10/27/24 20:16 Dose: Not Given Documented By: Admin: 10/27/24 16:47 Dose: Not Given Documented By: juliana Co-signed By: DANUTA Admin: 10/27/24 12:31 Dose: Not Given Documented By: DANUTA Co-signed By: juliana Admin: 10/27/24 09:36 Dose: Not Given Documented By: juliana Co-signed By: MENAB Admin: 10/26/24 21:00 Dose: Not Given Documented By: Admin: 10/26/24 17:00 Dose: Not Given Documented By: K Admin: 10/26/24 11:58 Dose: Not Given Documented By: Admin: 10/26/24 07:37 Dose: Not Given Documented By: Admin: 10/25/24 21:03 Dose: Not Given Documented By: Admin: 10/25/24 16:49 Dose: Not Given Documented By: Admin: 10/25/24 11:59 Dose: Not Given Documented By: Admin: 10/25/24 08:31 Dose: Not Given Documented By: Admin: 10/24/24 20:58 Dose: Not Given Documented By: Admin: 10/24/24 17:31 Dose: Not Given Documented By: LMC Co-signed By: KS Admin: 10/24/24 12:26 Dose: Not Given Documented By: LMC Co-signed By: KS Admin: 10/24/24 07:33 Dose: Not Given Documented By: LMC Co-signed By: MRE Admin: 10/23/24 20:29 Dose: Not Given Documented By: Admin: 10/23/24 16:37 Dose: Not Given Documented By: LMC Co-signed By: MRE Admin: 10/23/24 11:42 Dose: Not Given Documented By: LMC Co-signed By: ASIF Admin: 10/23/24 08:27 Dose: Not Given Documented By: LMC Co-signed By: MPS Admin: 10/22/24 21:19 Dose: Not Given Documented By: ERIC Co-signed By: SESAR Admin: 10/22/24 17:22 Dose: Not Given Documented By: Admin: 10/22/24 11:36 Dose: Not Given Documented By: NISA Co-signed By: wnt Admin: 10/22/24 09:12 Dose: Not Given Documented By: wnt Co-signed By: NISA Admin: 10/21/24 20:38 Dose: Not Given Documented By: je Co-signed By: DENNYJ Admin: 10/21/24 16:44 Dose: Not Given Documented By: Admin: 10/21/24 11:36 Dose: Not Given Documented By: Admin: 10/21/24 07:32 Dose: Not Given Documented By: Admin: 10/20/24 20:41 Dose: Not Given Documented By: Admin: 10/20/24 16:47 Dose: Not Given Documented By: Admin: 10/20/24 11:42 Dose: Not Given Documented By: Admin: 10/20/24 07:46 Dose: Not Given Documented By: Admin: 10/19/24 21:15 Dose: Not Given Documented By: Admin: 10/19/24 17:23 Dose: Not Given Documented By: LMC Co-signed By: AA Admin: 10/19/24 12:32 Dose: Not Given Documented By: LMC Co-signed By: AA Admin: 10/19/24 07:41 Dose: Not Given Documented By: LMC Co-signed By: AA Admin: 10/18/24 21:15 Dose: Not Given Documented By: snc Co-signed By: ANS Admin: 10/18/24 17:04 Dose: Not Given Documented By: LMC Co-signed By: AAH Admin: 10/18/24 11:58 Dose: Not Given Documented By: LMC Co-signed By: CSE Admin: 10/18/24 08:18 Dose: Not Given Documented By: LMC Co-signed By: VGS Admin: 10/17/24 21:36 Dose: Not Given Documented By: Admin: 10/17/24 17:45 Dose: Not Given Documented By: Admin: 10/17/24 12:08 Dose: Not Given Documented By: Admin: 10/17/24 08:58 Dose: Not Given Documented By: Admin: 10/16/24 20:46 Dose: Not Given Documented By: Admin: 10/16/24 17:06 Dose: Not Given Documented By: Admin: 10/16/24 12:00 Dose: Not Given Documented By: Admin: 10/16/24 09:14 Dose: Not Given Documented By: Admin: 10/15/24 21:06 Dose: Not Given Documented By: rodriguez Co-signed By: TERI Admin: 10/15/24 17:11 Dose: Not Given Documented By: DMH Co-signed By: BECCA Admin: 10/15/24 11:33 Dose: Not Given Documented By: DMH Co-signed By: AA Admin: 10/15/24 09:14 Dose: Not Given Documented By: BRYSONH Co-signed By: PIERRE Admin: 10/14/24 20:39 Dose: Not Given Documented By: Admin: 10/14/24 16:50 Dose: Not Given Documented By: EW Lactobacillus Acidophilus (Advanced Probiotic 625 Mg Capsule) 1,250 mg PO DAILY [place] Stop: 11/09/24 08:59 Last Admin: 10/30/24 09:02 Dose: 1,250 mg Documented By: Admin: 10/29/24 10:30 Dose: 1,250 mg Documented By: Admin: 10/28/24 08:46 Dose: 1,250 mg Documented By: Admin: 10/27/24 09:28 Dose: 1,250 mg Documented By: cak Admin: 10/26/24 08:09 Dose: 1,250 mg Documented By: Admin: 10/25/24 07:38 Dose: 1,250 mg Documented By: Admin: 10/24/24 07:29 Dose: 1,250 mg Documented By: Admin: 10/23/24 09:41 Dose: 1,250 mg Documented By: Admin: 10/22/24 09:14 Dose: 1,250 mg Documented By: wnt Admin: 10/21/24 07:34 Dose: 1,250 mg Documented By: Admin: 10/20/24 07:53 Dose: 1,250 mg Documented By: Admin: 10/19/24 08:13 Dose: 1,250 mg Documented By: Admin: 10/18/24 08:12 Dose: 1,250 mg Documented By: Admin: 10/17/24 08:57 Dose: 1,250 mg Documented By: Admin: 10/16/24 12:23 Dose: Not Given Documented By: Admin: 10/15/24 09:43 Dose: 1,250 mg Documented By: Admin: 10/14/24 12:55 Dose: 1,250 mg Documented By: Admin: 10/13/24 08:44 Dose: 1,250 mg Documented By: Admin: 10/12/24 09:02 Dose: 1,250 mg Documented By: Admin: 10/11/24 09:06 Dose: 1,250 mg Documented By: rhonda Admin: 10/10/24 08:52 Dose: 1,250 mg Documented By: rhonda Levofloxacin (Levofloxacin 500 Mg Tab) 500 mg PO [facility]; Protocol Stop: 11/07/24 08:59 Last Admin: 10/14/24 12:57 Dose: 500 mg Documented By: Admin: 10/13/24 08:44 Dose: 500 mg Documented By: Admin: 10/12/24 09:02 Dose: 500 mg Documented By: Admin: 10/11/24 09:06 Dose: 500 mg Documented By: rhonda Admin: 10/10/24 08:52 Dose: 500 mg Documented By: [email or web address] Admin: 10/09/24 09:54 Dose: 500 mg Documented By: Admin: 10/08/24 08:36 Dose: 500 mg Documented By: HUNTER Lidocaine (Lidocaine 5% 1 Patch) 1 patch TD QAM [place] Stop: 11/07/24 08:59 Last Admin: 10/30/24 09:03 Dose: 1 patch Documented By: Admin: 10/29/24 10:25 Dose: 1 patch Documented By: Admin: 10/28/24 07:37 Dose: 1 patch Documented By: Admin: 10/27/24 09:27 Dose: 1 patch Documented By: juliana Admin: 10/26/24 10:00 Dose: Not Given Documented By: Admin: 10/25/24 07:39 Dose: 1 patch Documented By: Admin: 10/24/24 07:29 Dose: 1 patch Documented By: Admin: 10/23/24 09:41 Dose: 1 patch Documented By: Admin: 10/22/24 09:19 Dose: 1 patch Documented By: [email or web address] Admin: 10/21/24 07:35 Dose: 1 patch Documented By: Admin: 10/20/24 08:00 Dose: 1 patch Documented By: Admin: 10/19/24 08:13 Dose: Not Given Documented By: Admin: 10/18/24 08:12 Dose: Not Given Documented By: Admin: 10/17/24 09:00 Dose: Not Given Documented By: Admin: 10/16/24 17:08 Dose: Not Given Documented By: Admin: 10/15/24 10:23 Dose: Not Given Documented By: Admin: 10/14/24 12:12 Dose: Not Given Documented By: Admin: 10/13/24 08:46 Dose: Not Given Documented By: Admin: 10/12/24 09:04 Dose: 1 patch Documented By: Admin: 10/11/24 09:26 Dose: Not Given Documented By: rhonda Admin: 10/10/24 08:53 Dose: 1 patch Documented By: rhonda Admin: 10/09/24 12:52 Dose: 1 patch Documented By: Admin: 10/08/24 08:36 Dose: 1 patch Documented By: HUNTER Melatonin (Melatonin 3 Mg Tab) 3 mg PO HS PRN PRN Reason: Insomnia Stop: 11/07/24 03:07 Last Admin: 10/28/24 19:40 Dose: 3 mg Documented By: Admin: 10/27/24 20:09 Dose: 3 mg Documented By: Admin: 10/26/24 21:15 Dose: 3 mg Documented By: Admin: 10/25/24 22:00 Dose: 3 mg Documented By: Admin: 10/24/24 21:17 Dose: 3 mg Documented By: Admin: 10/23/24 19:41 Dose: 3 mg Documented By: Admin: 10/22/24 21:25 Dose: 3 mg Documented By: Admin: 10/20/24 21:39 Dose: 3 mg Documented By: Admin: 10/19/24 21:58 Dose: 3 mg Documented By: Admin: 10/18/24 21:46 Dose: 3 mg Documented By: snc Admin: 10/17/24 21:48 Dose: 3 mg Documented By: kerry Admin: 10/16/24 22:47 Dose: 3 mg Documented By: MARILOU Mirtazapine (Mirtazapine Tab 15 Mg Tab) 7.5 mg PO HS [place] Stop: 11/25/24 20:59 Last Admin: 10/29/24 20:54 Dose: 7.5 mg Documented By: je Admin: 10/28/24 19:41 Dose: 7.5 mg Documented By: Admin: 10/27/24 20:11 Dose: 7.5 mg Documented By: Admin: 10/26/24 21:09 Dose: 7.5 mg Documented By: NESTOR Miscellaneous (Remove Lidoderm Patch) 1 each N/A DAILY@2100 [facility] Stop: 11/07/24 20:59 Last Admin: 10/29/24 20:58 Dose: 1 each Documented By: je Admin: 10/28/24 19:41 Dose: 1 each Documented By: Admin: 10/27/24 20:11 Dose: 1 each Documented By: Admin: 10/26/24 21:10 Dose: Not Given Documented By: Admin: 10/25/24 21:56 Dose: 1 each Documented By: Admin: 10/24/24 21:17 Dose: 1 each Documented By: Admin: 10/23/24 19:44 Dose: 1 each Documented By: Admin: 10/22/24 21:27 Dose: 1 each Documented By: Admin: 10/21/24 22:01 Dose: Not Given Documented By: je Admin: 10/20/24 21:46 Dose: 1 each Documented By: Admin: 10/19/24 21:58 Dose: 1 each Documented By: Admin: 10/18/24 22:29 Dose: Not Given Documented By: snc Admin: 10/17/24 21:07 Dose: Not Given Documented By: Admin: 10/16/24 20:39 Dose: 1 each Documented By: Admin: 10/15/24 21:19 Dose: Not Given Documented By: rodriguez Admin: 10/14/24 20:39 Dose: Not Given Documented By: Admin: 10/13/24 20:17 Dose: Not Given Documented By: Admin: 10/12/24 20:27 Dose: Not Given Documented By: Admin: 10/11/24 21:34 Dose: 1 each Documented By: Admin: 10/10/24 21:08 Dose: 1 each Documented By: Admin: 10/09/24 20:22 Dose: 1 each Documented By: Admin: 10/08/24 20:40 Dose: 1 each Documented By: MARILEE Oxycodone HCl (Oxycodone Hcl Ir 5 Mg Tab (Immediate Release)) 5 mg PO Q6H PRN PRN Reason: Mod-Sev Pain (Scale 4-10) Stop: 11/05/24 04:14 Last Admin: 10/28/24 07:55 Dose: 5 mg Documented By: Admin: 10/27/24 16:25 Dose: 5 mg Documented By: Admin: 10/27/24 09:44 Dose: 5 mg Documented By: cak Admin: 10/26/24 06:10 Dose: 5 mg Documented By: Admin: 10/25/24 21:59 Dose: 5 mg Documented By: Admin: 10/25/24 07:37 Dose: 5 mg Documented By: Admin: 10/25/24 01:00 Dose: 5 mg Documented By: Admin: 10/24/24 17:30 Dose: 5 mg Documented By: Admin: 10/24/24 07:30 Dose: 5 mg Documented By: Admin: 10/24/24 02:16 Dose: 5 mg Documented By: Admin: 10/23/24 19:41 Dose: 5 mg Documented By: Admin: 10/23/24 03:17 Dose: 5 mg Documented By: Admin: 10/22/24 09:22 Dose: 5 mg Documented By: beny Oxycodone HCl (Oxycodone Hcl Ir 5 Mg Tab (Immediate Release)) 5 mg PO Q6H [place] Stop: 11/11/24 11:29 Last Admin: 10/30/24 17:02 Dose: 5 mg Documented By: Admin: 10/30/24 12:20 Dose: 5 mg Documented By: Admin: 10/30/24 05:51 Dose: 5 mg Documented By: je Admin: 10/29/24 22:40 Dose: 5 mg Documented By: je Admin: 10/29/24 17:32 Dose: 5 mg Documented By: Admin: 10/29/24 13:36 Dose: Not Given Documented By: Admin: 10/29/24 05:06 Dose: 5 mg Documented By: Admin: 10/28/24 23:56 Dose: 5 mg Documented By: Admin: 10/28/24 16:57 Dose: 5 mg Documented By: Admin: 10/28/24 12:03 Dose: Not Given Documented By: BECCA Polyethylene Glycol (Polyethylene (Miralax) 17 Gm Pack) 17 gm PO QAM [place] Stop: 11/19/24 08:59 Last Admin: 10/30/24 09:01 Dose: 17 gm Documented By: Admin: 10/29/24 10:25 Dose: 17 gm Documented By: Admin: 10/28/24 08:46 Dose: 17 gm Documented By: Admin: 10/27/24 12:24 Dose: Not Given Documented By: Admin: 10/26/24 08:03 Dose: Not Given Documented By: Admin: 10/25/24 07:46 Dose: Not Given Documented By: Admin: 10/24/24 07:30 Dose: 17 gm Documented By: Admin: 10/23/24 09:41 Dose: 17 gm Documented By: Admin: 10/22/24 09:23 Dose: 17 gm Documented By: beny Admin: 10/21/24 07:35 Dose: Not Given Documented By: Admin: 10/20/24 07:52 Dose: 17 gm Documented By: FILI Potassium Chloride (Potassium Chloride Crtab 20 Meq Tabcr) 20 meq PO DAILY [place] Stop: 11/27/24 08:59 Last Admin: 10/30/24 09:01 Dose: 20 meq Documented By: Admin: 10/29/24 10:30 Dose: 20 meq Documented By: Admin: 10/28/24 08:46 Dose: 20 meq Documented By: BECCA Senna/Docusate Sodium (Docusate Sodium/Senna 50/8.6mg Tab) 1 tab PO BID [place] Stop: 11/07/24 08:59 Last Admin: 10/30/24 09:01 Dose: 1 tab Documented By: Admin: 10/29/24 20:57 Dose: Not Given Documented By: je Admin: 10/29/24 10:30 Dose: 1 tab Documented By: Admin: 10/28/24 19:40 Dose: 1 tab Documented By: Admin: 10/28/24 08:46 Dose: 1 tab Documented By: Admin: 10/27/24 20:10 Dose: Not Given Documented By: Admin: 10/27/24 12:24 Dose: Not Given Documented By: Admin: 10/26/24 21:08 Dose: Not Given Documented By: Admin: 10/26/24 08:02 Dose: Not Given Documented By: Admin: 10/25/24 22:00 Dose: 1 tab Documented By: Admin: 10/25/24 07:38 Dose: 1 tab Documented By: Admin: 10/24/24 21:17 Dose: 1 tab Documented By: Admin: 10/24/24 07:29 Dose: 1 tab Documented By: Admin: 10/23/24 19:40 Dose: 1 tab Documented By: Admin: 10/23/24 09:40 Dose: 1 tab Documented By: Admin: 10/22/24 21:25 Dose: 1 tab Documented By: Admin: 10/22/24 09:27 Dose: Not Given Documented By: beny Admin: 10/21/24 20:37 Dose: 1 tab Documented By: je Admin: 10/21/24 07:44 Dose: 1 tab Documented By: Admin: 10/20/24 21:40 Dose: 1 tab Documented By: Admin: 10/20/24 07:52 Dose: 1 tab Documented By: Admin: 10/19/24 21:58 Dose: 1 tab Documented By: Admin: 10/19/24 08:14 Dose: 1 tab Documented By: Admin: 10/18/24 21:42 Dose: Not Given Documented By: snc Admin: 10/18/24 08:12 Dose: Not Given Documented By: Admin: 10/17/24 21:51 Dose: Not Given Documented By: snc Admin: 10/17/24 09:00 Dose: Not Given Documented By: Admin: 10/16/24 20:38 Dose: 1 tab Documented By: Admin: 10/16/24 12:23 Dose: Not Given Documented By: Admin: 10/15/24 21:19 Dose: Not Given Documented By: ksy Admin: 10/15/24 09:42 Dose: Not Given Documented By: Admin: 10/14/24 20:19 Dose: Not Given Documented By: Admin: 10/14/24 09:59 Dose: Not Given Documented By: Admin: 10/13/24 20:17 Dose: 1 tab Documented By: Admin: 10/13/24 08:44 Dose: 1 tab Documented By: Admin: 10/12/24 20:21 Dose: 1 tab Documented By: Admin: 10/12/24 09:00 Dose: 1 tab Documented By: Admin: 10/11/24 21:39 Dose: Not Given Documented By: Admin: 10/11/24 07:57 Dose: Not Given Documented By: [email or web address] Admin: 10/10/24 20:36 Dose: Not Given Documented By: Admin: 10/10/24 08:52 Dose: 1 tab Documented By: cjk Admin: 10/09/24 20:18 Dose: 1 tab Documented By: Admin: 10/09/24 10:11 Dose: 1 tab Documented By: Admin: 10/08/24 20:37 Dose: 1 tab Documented By: Admin: 10/08/24 08:43 Dose: 1 tab Documented By: HUNTER Voriconazole (Voriconazole 200 Mg Tablet) 200 mg PO Q12 [place] Stop: 11/07/24 08:59 Last Admin: 10/30/24 09:03 Dose: 200 mg Documented By: Admin: 10/29/24 20:54 Dose: 200 mg Documented By: je Admin: 10/29/24 10:30 Dose: 200 mg Documented By: Admin: 10/28/24 19:39 Dose: 200 mg Documented By: Admin: 10/28/24 08:46 Dose: 200 mg Documented By: Admin: 10/27/24 20:11 Dose: 200 mg Documented By: Admin: 10/27/24 09:28 Dose: 200 mg Documented By: [email or web address] Admin: 10/26/24 21:10 Dose: 200 mg Documented By: Admin: 10/26/24 08:10 Dose: 200 mg Documented By: Admin: 10/25/24 21:55 Dose: 200 mg Documented By: Admin: 10/25/24 07:38 Dose: 200 mg Documented By: Admin: 10/24/24 21:17 Dose: 200 mg Documented By: Admin: 10/24/24 07:30 Dose: 200 mg Documented By: Admin: 10/23/24 19:42 Dose: 200 mg Documented By: Admin: 10/23/24 09:41 Dose: 200 mg Documented By: Admin: 10/22/24 21:27 Dose: 200 mg Documented By: Admin: 10/22/24 09:15 Dose: 200 mg Documented By: beny Admin: 10/21/24 20:36 Dose: 200 mg Documented By: je Admin: 10/21/24 07:35 Dose: 200 mg Documented By: Admin: 10/20/24 21:39 Dose: 200 mg Documented By: Admin: 10/20/24 07:59 Dose: 200 mg Documented By: Admin: 10/19/24 21:58 Dose: 200 mg Documented By: Admin: 10/19/24 08:12 Dose: 200 mg Documented By: Admin: 10/18/24 21:46 Dose: 200 mg Documented By: snc Admin: 10/18/24 08:13 Dose: 200 mg Documented By: Admin: 10/17/24 21:50 Dose: 200 mg Documented By: snc Admin: 10/17/24 08:56 Dose: 200 mg Documented By: Admin: 10/16/24 20:41 Dose: 200 mg Documented By: Admin: 10/16/24 09:12 Dose: 200 mg Documented By: Admin: 10/15/24 21:24 Dose: 200 mg Documented By: rodriguez Admin: 10/15/24 09:46 Dose: 200 mg Documented By: Admin: 10/14/24 20:19 Dose: 200 mg Documented By: Admin: 10/14/24 12:55 Dose: 200 mg Documented By: Admin: 10/13/24 20:17 Dose: 200 mg Documented By: Admin: 10/13/24 08:44 Dose: 200 mg Documented By: Admin: 10/12/24 20:21 Dose: 200 mg Documented By: Admin: 10/12/24 09:02 Dose: 200 mg Documented By: Admin: 10/11/24 21:38 Dose: 200 mg Documented By: Admin: 10/11/24 09:06 Dose: 200 mg Documented By: rhonda Admin: 10/10/24 21:07 Dose: 200 mg Documented By: Admin: 10/10/24 08:52 Dose: 200 mg Documented By: [email or web address] Admin: 10/09/24 20:22 Dose: 200 mg Documented By: Admin: 10/09/24 09:52 Dose: 200 mg Documented By: Admin: 10/08/24 20:38 Dose: 200 mg Documented By: Admin: 10/08/24 08:35 Dose: 200 mg Documented By: HUNTER
[2024-10-30] MEDS: POTASSIUM CHLORIDE CRTAB 20 MEQ TABCR PO STA (18:05)
[2024-10-30] MEDS ORDERED: ONDANSETRON INJ 2 MG/ML 2 ML VIAL IV PRN (19:12)
[2024-10-31] MEDS: VANCOMYCIN LEVEL ONE (05:38)
[2024-10-31 05:57] LABS: Hematocrit (blood only) 27.7 % (37.0-47.0); Hemoglobin 8.4 g/dl (12.0-16.0); Mean Corpuscular Hemoglobin 30.7 pg (25.0-34.0); Mean Corpuscular Volume 101.1 fL (80.0-100.0); Platelet Count 202 K/uL (130-400); RDW Standard Deviation 61.3 fL (36.4-46.3); Red Blood Count 2.74 M/uL (4.20-5.40); White Blood Count 4.38 K/ul (4.8-10.8)
[2024-10-31 06:14] LABS: Anion Gap 4.0 (3-11); Blood Urea Nitrogen 7.0 mg/dl (6-23); Calcium 8.1 mg/dl (8.6-10.3); Carbon Dioxide 28.0 mmol/L (21-32); Chloride 109.0 mmol/L (98-107); Creatinine Clr Calc Pharmacy 114.6 ml/min; Glucose 89.0 mg/dl (70-99(Fasting)); Potassium 3.6 mmol/L (3.5-5.1); Sodium 141.0 mmol/L (136-145)
--- NOTE | 2024-10-31 07:42 | Pharmacy Report ---
Pharmacy PK ABX Note - Date of Service October 31, 2024 - Assessment and Plan Assessment 10/31 * Vancomycin level this AM ~14.3 mcg/ml - current vancomycin regimen associated with goal AUC/ARNOLD therefore will continue current regimen 10/28: * Vancomycin level this AM ~16.7 mcg/ml - current vancomycin regimen associated with goal AUC/ARNOLD therefore will continue current regimen 10/27: * Day #12 vancomycin. Repeat level not drawn this AM and AM vancomycin administered. Ordered a repeat level for noon ~ 6.5h after the dose. Random level- 14.4mcg/mL which is predicted to achieve ssAUC 402mg/L.hr with a 51% probability. 10/26 * Random level 11.5 mcg/mL this morning which suggests below higher target range of 500-600 AUC/ARNOLD once level drawn while vanco infusing was removed from data (within 400-600 AUC/ARNOLD range). Given uncertainty of previous level/if it was removed with previous calculations will confirm tomorrow morning prior to increasing dose. 10/24: Day #9 vancomycin. * Vancomycin level drawn early this morning was reported as 30.8mcg/mL, however, it was drawn while the dose of vancomycin was infusing. The RN stopped the vancomycin infusion another vanco level was obtained ~4.5 hrs later which was 18.6mcg/mL. This extrapolates to a supratherapeutic AUC, so the maintenance dose of vancomycin was decreased. * Vancomycin is to continue through 12/03/24. She also continues on po levofloxacin. 10/21: Day #6 Vancomycin * Vanco level drawn this morning was 20.4mcg/mL which extrapolates to a supratherapeutic AUC. The maintenance dose of vancomycin has been decreased. * She also continues on Zosyn. 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 Trough level this AM, 11.7mcg/mL (~8h level drawn appropriately). 10/17 * Plan for 6-8 weeks of vancomycin. Random level today 11.6 mcg/mL suggests attainment of target AUC/ARNOLD * Will continue with current dose. Can get additional level at steady state 10/16: * The vancomycin was d/c and daptomycin was started on 10/11. Today the patient was changed back to vancomycin per ID recommendation as patient's condition is reportedly declining. IR drainage of fluid collection of lumbar spine done and cultured x 2 on 10/13. Both cultures grew S. epidermidis. Repeat blood cultures done 10/15 x 2 are no growth to date (preliminary). * Indwelling port removed as well on 10/14. * Will reload vancomycin and start a regimen targeting the upper end of the AUC goal. (ID recommends dosing for possible meningitis). 10/10: 79 year old started on vancomycin due to positive blood culture result/Gm+ cocci -staph epi / BCID2 positive for mecA/C. Only 1/2 bottles positive, therefore potential for contaminant. Repeat blood cultures pending. Pt with history of recent lumbar spine fracture - admitted for worsening pain. Per notes, ortho recommending conservative measures. Also undergoing chemotherapy with last session in August. On suppressive abx with levaquin, voriconazole and acyclovir. Plan Vancomycin * Continue current dosing, no change * Consider rechecking level in next 3-4 days Pharmacy will continue to follow and will adjust dose/frequency as necessary. Thank you. Pharmacy has transitioned to AUC monitoring for vancomycin. AUC/ARNOLD is the preferred PK/PD target and is associated with decreased risk of nephrotoxicity compared to traditional trough targets.
[2024-10-31] MEDS: PREGABALIN 25 MG CAP PO SCH (08:36)
--- NOTE | 2024-10-31 13:20 | Hospitalist Progress Note ---
Date of Service October 31, 2024 Assessment & Plan (1) Severe back pain: Plan: 79 yo F with type 2 diabetes, dyslipidemia, paroxysmal SVT, hypertension, GERD, osteoarthritis of both knees, AML, generalized anxiety disorder, spinal stenosis of lumbar region, persistent insomnia who was recently in the hospital for lumbar spine compression fracture and discharged to rehab comes back with severe back pain. Severe back pain L1 and L3 compression fractures Staph epidermidis bacteremia Bilateral iliopsoas muscle fluid collections, likely infected -Coming from rehab -CT scan done in the ER shows same L1 L3 compression fractures -MRI Lumbar spine reviewed: + fluid collections, edema iliopsoas, bilateral, likely infected -s/p IR drainage of lumbar spine, per ortho no surgical intervetnion Plan- -ortho consult, appreciate recs -appreciate IR assistance with case -will need 6-8 weeks of IV vancomycin per ID, repeat MRI at end of treatment course -awaiting rehab placement, PICC line placed -start oxycontin 10mg bid based on 24 hour oxycodone need, stop gabapentin, start pregablin 25 tid -increase oxycodone 5mg frequency prn to q4hrs Staph epidermidis bacteremia -Initial blood culture (10/07): Staph epidermidis 1 out of 2 bottles -Repeat blood cultures (10/10): Staph epidermidis 1 out of 2 bottles -Echocardiogram: No mention of possible vegetation -ID service recommends removal of indwelling port, port removed on 10/14 -third set of blood cultures (10/15): NEGATIVE Lower abdominal Discomfort -resolved Hypokalemia -replenished AML undergoing chemotherapy History of pancytopenia -WBC 6.5. Hemoglobin 10.1. Platelets 340 -Currently undergoing monthly chemotherapy with decitabine/venetoclax -Last chemo was in August. -This month chemo was delayed because patient was in rehab -Has appointment with Dr. Gaines on 10/29/2024 per last admission -Continue suppressive antibiotics Levaquin, voriconazole and acyclovir -continue acyclovir Hypertension -Continue amlodipine Hyperlipidemia On statin Anxiety/depression -Psych service consulted -continue citalopram and mirtazapine Diabetes -Sliding scale for now Recent A port placement -port removed I spent a total of 55 minutes in direct patient care, including [id number] time with the patient and/or family, reviewing medical records, ordering and reviewing diagnostic tests, and coordinating care with other healthcare providers. This time includes: history taking, physical examination, medical decision making, counseling, ECG interpretation, imaging interpretation, lab interpretation, orders, and education, excluding time spent in the performance of separately billed services. Admission and Anticipated Discharge Date Admission Date: October 08, 2024 Subjective Patient seen and examined at bedside. Patient doing well today, feels pain is improved from yesterday. Review of Systems Review of Systems: CONSTITUTIONAL: weakness EYES: Patient denies any visual symptoms. EARS, NOSE, AND THROAT: No difficulties with hearing. No symptoms of rhinitis or sore throat. CARDIOVASCULAR: Patient denies chest pains, palpitations, orthopnea and paroxysmal nocturnal dyspnea. RESPIRATORY: No dyspnea on exertion, no wheezing or cough. GI: No nausea, vomiting, diarrhea, constipation, abdominal pain, hematochezia or melena. : No urinary hesitancy or dribbling. No nocturia or urinary frequency. No abnormal urethral discharge. MUSCULOSKELETAL: lower back pain NEUROLOGIC: No chronic headaches, no seizures. Patient denies numbness, tingling or weakness. PSYCHIATRIC: Patient denies problems with mood disturbance. No problems with anxiety. ENDOCRINE: No excessive urination or excessive thirst. DERMATOLOGIC: Patient denies any rashes or skin changes. Physical Exam Physical Exam: Gen: A&O 3 NAD HEENT: NCAT, EOMI, not icteric. External ears normal. No rhinorrhea. Moist mucous membranes. Neck: Supple, full range of motion, no observable masses, No meningeal sign. Lungs: No Respiratory distress. CV: RRR, no edema. Abdomen: Soft, nondistended, No rebound tenderness. MSK: tenderness in lower back to palpation improved from prior Skin: No rashes, petechiae, lesions. Normal color per patient. Neuro: Normal Gait, Grossly intact. Psych: Appropriate for situation. Results & Data Results & Data Vital Signs (Past 12 Hours) Vital Signs Temp Pulse Resp BP Pulse Ox O2 Del Method 10/31/24 07:39 36.5 C 85 17 100/62 93 Room Air Laboratory Results -personally reviewed, Hgb dropped but around chronic baseline, creatinine at baseline Medications Administered Acetaminophen (Acetaminophen 500 Mg Tab) 1,000 mg PO Q8H [place] Stop: 11/22/24 09:59 Last Admin: 10/31/24 11:06 Dose: 1,000 mg Documented By: Admin: 10/31/24 01:37 Dose: 1,000 mg Documented By: jjg Admin: 10/30/24 18:05 Dose: 1,000 mg Documented By: Admin: 10/30/24 09:01 Dose: 1,000 mg Documented By: Admin: 10/30/24 01:18 Dose: 1,000 mg Documented By: jjg Admin: 10/29/24 17:32 Dose: 1,000 mg Documented By: Admin: 10/29/24 10:30 Dose: 1,000 mg Documented By: Admin: 10/29/24 05:05 Dose: 1,000 mg Documented By: Admin: 10/29/24 02:16 Dose: Not Given Documented By: Admin: 10/28/24 17:57 Dose: 1,000 mg Documented By: Admin: 10/28/24 10:13 Dose: 1,000 mg Documented By: Admin: 10/28/24 01:23 Dose: 1,000 mg Documented By: Admin: 10/27/24 18:04 Dose: Not Given Documented By: cak Admin: 10/27/24 12:24 Dose: 1,000 mg Documented By: Admin: 10/27/24 01:07 Dose: 1,000 mg Documented By: Admin: 10/26/24 17:20 Dose: 1,000 mg Documented By: Admin: 10/26/24 10:05 Dose: 1,000 mg Documented By: Admin: 10/26/24 01:12 Dose: 1,000 mg Documented By: Admin: 10/25/24 17:16 Dose: 1,000 mg Documented By: Admin: 10/25/24 09:58 Dose: 1,000 mg Documented By: Admin: 10/25/24 01:00 Dose: 1,000 mg Documented By: Admin: 10/24/24 17:30 Dose: 1,000 mg Documented By: Admin: 10/24/24 10:00 Dose: 1,000 mg Documented By: Admin: 10/24/24 02:16 Dose: 1,000 mg Documented By: Admin: 10/23/24 18:00 Dose: 1,000 mg Documented By: Admin: 10/23/24 09:45 Dose: 1,000 mg Documented By: BRIANNA Acyclovir (Acyclovir 400 Mg Tab) 400 mg PO BID [place] Stop: 11/07/24 08:59 Last Admin: 10/31/24 08:36 Dose: 400 mg Documented By: Admin: 10/30/24 21:00 Dose: 400 mg Documented By: je Admin: 10/30/24 09:02 Dose: 400 mg Documented By: Admin: 10/29/24 20:54 Dose: 400 mg Documented By: je Admin: 10/29/24 10:30 Dose: 400 mg Documented By: Admin: 10/28/24 19:40 Dose: 400 mg Documented By: Admin: 10/28/24 08:46 Dose: 400 mg Documented By: Admin: 10/27/24 20:10 Dose: 400 mg Documented By: Admin: 10/27/24 09:29 Dose: 400 mg Documented By: [email or web address] Admin: 10/26/24 21:08 Dose: 400 mg Documented By: Admin: 10/26/24 08:09 Dose: 400 mg Documented By: K Admin: 10/25/24 21:56 Dose: 400 mg Documented By: Admin: 10/25/24 07:39 Dose: 400 mg Documented By: Admin: 10/24/24 21:16 Dose: 400 mg Documented By: Admin: 10/24/24 07:28 Dose: 400 mg Documented By: Admin: 10/23/24 19:42 Dose: 400 mg Documented By: Admin: 10/23/24 09:39 Dose: 400 mg Documented By: Admin: 10/22/24 21:26 Dose: 400 mg Documented By: Admin: 10/22/24 09:14 Dose: 400 mg Documented By: beny Admin: 10/21/24 20:37 Dose: 400 mg Documented By: je Admin: 10/21/24 07:47 Dose: 400 mg Documented By: Admin: 10/20/24 21:38 Dose: 400 mg Documented By: Admin: 10/20/24 07:53 Dose: 400 mg Documented By: Admin: 10/19/24 21:58 Dose: 400 mg Documented By: Admin: 10/19/24 08:12 Dose: 400 mg Documented By: Admin: 10/18/24 21:46 Dose: 400 mg Documented By: snc Admin: 10/18/24 08:11 Dose: 400 mg Documented By: Admin: 10/17/24 21:50 Dose: 400 mg Documented By: snc Admin: 10/17/24 08:57 Dose: 400 mg Documented By: Admin: 10/16/24 20:38 Dose: 400 mg Documented By: Admin: 10/16/24 09:17 Dose: 400 mg Documented By: Admin: 10/15/24 21:03 Dose: 400 mg Documented By: rodriguez Admin: 10/15/24 09:44 Dose: 400 mg Documented By: Admin: 10/14/24 20:19 Dose: 400 mg Documented By: Admin: 10/14/24 09:59 Dose: Not Given Documented By: Admin: 10/13/24 20:17 Dose: 400 mg Documented By: Admin: 10/13/24 08:45 Dose: 400 mg Documented By: Admin: 10/12/24 20:21 Dose: 400 mg Documented By: Admin: 10/12/24 09:03 Dose: 400 mg Documented By: Admin: 10/11/24 21:38 Dose: 400 mg Documented By: Admin: 10/11/24 09:05 Dose: 400 mg Documented By: rhonda Admin: 10/10/24 21:08 Dose: 400 mg Documented By: Admin: 10/10/24 08:52 Dose: 400 mg Documented By: [email or web address] Admin: 10/09/24 20:22 Dose: 400 mg Documented By: Admin: 10/09/24 09:50 Dose: 400 mg Documented By: Admin: 10/08/24 20:37 Dose: 400 mg Documented By: Admin: 10/08/24 08:34 Dose: 400 mg Documented By: HUNTER Amlodipine Besylate (Amlodipine Besylate 5 Mg Tab) 5 mg PO QAM [place] Stop: 11/07/24 08:59 Last Admin: 10/31/24 08:37 Dose: 5 mg Documented By: Admin: 10/30/24 09:02 Dose: 5 mg Documented By: Admin: 10/29/24 10:31 Dose: 5 mg Documented By: Admin: 10/28/24 08:46 Dose: 5 mg Documented By: Admin: 10/27/24 09:28 Dose: 5 mg Documented By: [email or web address] Admin: 10/26/24 08:09 Dose: 5 mg Documented By: Admin: 10/25/24 07:38 Dose: 5 mg Documented By: Admin: 10/24/24 07:28 Dose: 5 mg Documented By: Admin: 10/23/24 09:39 Dose: 5 mg Documented By: Admin: 10/22/24 09:15 Dose: 5 mg Documented By: beny Admin: 10/21/24 07:33 Dose: 5 mg Documented By: Admin: 10/20/24 07:53 Dose: 5 mg Documented By: Admin: 10/19/24 08:12 Dose: 5 mg Documented By: Admin: 10/18/24 08:11 Dose: 5 mg Documented By: Admin: 10/17/24 08:57 Dose: 5 mg Documented By: Admin: 10/16/24 09:18 Dose: 5 mg Documented By: Admin: 10/15/24 09:43 Dose: 5 mg Documented By: Admin: 10/14/24 12:56 Dose: 5 mg Documented By: Admin: 10/13/24 08:45 Dose: 5 mg Documented By: Admin: 10/12/24 09:03 Dose: 5 mg Documented By: Admin: 10/11/24 09:05 Dose: 5 mg Documented By: rhonda Admin: 10/10/24 08:52 Dose: 5 mg Documented By: rhonda Admin: 10/09/24 09:51 Dose: 5 mg Documented By: Admin: 10/08/24 08:36 Dose: 5 mg Documented By: HUNTER Atorvastatin Calcium (Atorvastatin 20 Mg Tab) 20 mg PO HS [place] Stop: 11/07/24 20:59 Last Admin: 10/10/24 21:08 Dose: 20 mg Documented By: Admin: 10/09/24 20:22 Dose: 20 mg Documented By: Admin: 10/08/24 20:37 Dose: 20 mg Documented By: MARILEE Citalopram Hydrobromide (Citalopram 20 Mg Tab) 20 mg PO QAM [place] Stop: 11/26/24 08:59 Last Admin: 10/31/24 08:36 Dose: 20 mg Documented By: Admin: 10/30/24 09:02 Dose: 20 mg Documented By: Admin: 10/29/24 10:30 Dose: 20 mg Documented By: Admin: 10/28/24 08:46 Dose: 20 mg Documented By: Admin: 10/27/24 09:28 Dose: 20 mg Documented By: juliana Cyanocobalamin (Cyanocobalamin (B-12) 500 Mcg Tablet) 1,000 mcg PO QAM [place] Stop: 11/21/24 09:59 Last Admin: 10/31/24 08:36 Dose: 1,000 mcg Documented By: Admin: 10/30/24 09:02 Dose: 1,000 mcg Documented By: Admin: 10/29/24 10:31 Dose: 1,000 mcg Documented By: Admin: 10/28/24 08:47 Dose: 1,000 mcg Documented By: Admin: 10/27/24 09:28 Dose: 1,000 mcg Documented By: juliana Admin: 10/26/24 08:09 Dose: 1,000 mcg Documented By: Admin: 10/25/24 07:38 Dose: 1,000 mcg Documented By: Admin: 10/24/24 07:29 Dose: 1,000 mcg Documented By: Admin: 10/23/24 09:40 Dose: 1,000 mcg Documented By: Admin: 10/22/24 11:48 Dose: Not Given Documented By: NISA Cyclobenzaprine HCl (Cyclobenzaprine Hcl 5 Mg Tab) 5 mg PO TID [place] Stop: 11/29/24 13:59 Last Admin: 10/31/24 08:36 Dose: 5 mg Documented By: Admin: 10/30/24 21:02 Dose: 5 mg Documented By: je Admin: 10/30/24 14:31 Dose: 5 mg Documented By: JACK Enoxaparin Sodium (Enoxaparin Inj 40 Mg/0.4 Ml Syr) 40 mg SQ Q24H [place] Stop: 11/07/24 08:59 Last Admin: 10/31/24 08:37 Dose: 40 mg Documented By: Admin: 10/30/24 09:02 Dose: 40 mg Documented By: Admin: 10/29/24 10:31 Dose: 40 mg Documented By: Admin: 10/28/24 08:46 Dose: 40 mg Documented By: Admin: 10/27/24 09:29 Dose: 40 mg Documented By: juliana Admin: 10/26/24 08:03 Dose: Not Given Documented By: Admin: 10/25/24 07:39 Dose: Not Given Documented By: Admin: 10/13/24 08:46 Dose: Not Given Documented By: Admin: 10/12/24 09:04 Dose: 40 mg Documented By: Admin: 10/11/24 09:06 Dose: 40 mg Documented By: rhonda Admin: 10/10/24 08:52 Dose: 40 mg Documented By: rhonda Admin: 10/09/24 09:51 Dose: 40 mg Documented By: Admin: 10/08/24 08:37 Dose: 40 mg Documented By: HUNTER Heparin Sodium (Beef Lung) (Heparin 10 Unit/Ml 5 Ml Flush) 5 ml FLUSH PRN PRN PRN Reason: Flush Stop: 11/23/24 17:29 Last Admin: 10/31/24 05:37 Dose: 5 ml Documented By: Admin: 10/30/24 05:50 Dose: 5 ml Documented By: Admin: 10/29/24 05:20 Dose: 5 ml Documented By: Admin: 10/28/24 05:28 Dose: 5 ml Documented By: Admin: 10/27/24 20:13 Dose: 5 ml Documented By: Admin: 10/27/24 02:19 Dose: 5 ml Documented By: Admin: 10/26/24 08:08 Dose: 5 ml Documented By: Admin: 10/25/24 22:00 Dose: 5 ml Documented By: Admin: 10/24/24 18:55 Dose: 5 ml Documented By: LMC Heparin Sodium (Porcine) (Heparin 100 Unit/Ml 5ml Flush) 5 ml FLUSH PRN PRN PRN Reason: Flush Stop: 11/07/24 03:03 Last Admin: 10/23/24 19:43 Dose: 5 ml Documented By: Admin: 10/12/24 05:22 Dose: 5 ml Documented By: Admin: 10/09/24 10:11 Dose: 5 ml Documented By: ARTEMIO Vancomycin HCl 750 mg/ Sodium (Chloride) 265 mls @ 200 mls/hr IV Q8H [place] Stop: 12/03/24 23:59 Last Infusion: 10/31/24 07:30 Dose: Infused Documented By: Admin: 10/31/24 05:37 Dose: 200 mls/hr Documented By: Infusion: 10/30/24 22:53 Dose: Infused Documented By: Admin: 10/30/24 21:06 Dose: 200 mls/hr Documented By: jjg Infusion: 10/30/24 16:06 Dose: Infused Documented By: Admin: 10/30/24 14:31 Dose: 200 mls/hr Documented By: Infusion: 10/30/24 07:22 Dose: Infused Documented By: Admin: 10/30/24 05:52 Dose: 200 mls/hr Documented By: jmk Infusion: 10/29/24 22:37 Dose: Infused Documented By: je Admin: 10/29/24 21:00 Dose: 200 mls/hr Documented By: [email or web address] Infusion: 10/29/24 16:06 Dose: Infused Documented By: cak Admin: 10/29/24 14:36 Dose: 200 mls/hr Documented By: Infusion: 10/29/24 06:47 Dose: Infused Documented By: Admin: 10/29/24 05:06 Dose: 200 mls/hr Documented By: Infusion: 10/29/24 00:05 Dose: Infused Documented By: Admin: 10/28/24 22:45 Dose: 200 mls/hr Documented By: Infusion: 10/28/24 15:47 Dose: Infused Documented By: Admin: 10/28/24 14:27 Dose: 200 mls/hr Documented By: Infusion: 10/28/24 07:07 Dose: Infused Documented By: Admin: 10/28/24 05:28 Dose: 200 mls/hr Documented By: Infusion: 10/28/24 00:10 Dose: Infused Documented By: Admin: 10/27/24 22:50 Dose: 200 mls/hr Documented By: Infusion: 10/27/24 16:18 Dose: Infused Documented By: Admin: 10/27/24 14:17 Dose: 200 mls/hr Documented By: DANUTA Insulin Aspart (Insulin Aspart Per Unit Charge) 0 units SC ACHS [place] Stop: 11/13/24 05:59 Last Admin: 10/31/24 12:07 Dose: Not Given Documented By: Admin: 10/31/24 09:23 Dose: Not Given Documented By: Admin: 10/30/24 21:00 Dose: Not Given Documented By: je Co-signed By: JULIEN Admin: 10/30/24 17:02 Dose: Not Given Documented By: Admin: 10/30/24 12:09 Dose: Not Given Documented By: Admin: 10/30/24 07:43 Dose: Not Given Documented By: Admin: 10/29/24 20:55 Dose: Not Given Documented By: je Co-signed By: HLBob Admin: 10/29/24 16:58 Dose: Not Given Documented By: Admin: 10/29/24 11:27 Dose: Not Given Documented By: Admin: 10/29/24 09:01 Dose: Not Given Documented By: Admin: 10/28/24 20:37 Dose: Not Given Documented By: Admin: 10/28/24 16:37 Dose: Not Given Documented By: Admin: 10/28/24 12:04 Dose: Not Given Documented By: Admin: 10/28/24 07:55 Dose: Not Given Documented By: Admin: 10/27/24 20:16 Dose: Not Given Documented By: Admin: 10/27/24 16:47 Dose: Not Given Documented By: juliana Co-signed By: DANUTA Admin: 10/27/24 12:31 Dose: Not Given Documented By: DANUTA Co-signed By: juliana Admin: 10/27/24 09:36 Dose: Not Given Documented By: juliana Co-signed By: DANUTA Admin: 10/26/24 21:00 Dose: Not Given Documented By: Admin: 10/26/24 17:00 Dose: Not Given Documented By: Admin: 10/26/24 11:58 Dose: Not Given Documented By: Admin: 10/26/24 07:37 Dose: Not Given Documented By: Admin: 10/25/24 21:03 Dose: Not Given Documented By: Admin: 10/25/24 16:49 Dose: Not Given Documented By: Admin: 10/25/24 11:59 Dose: Not Given Documented By: Admin: 10/25/24 08:31 Dose: Not Given Documented By: Admin: 10/24/24 20:58 Dose: Not Given Documented By: Admin: 10/24/24 17:31 Dose: Not Given Documented By: LMC Co-signed By: KS Admin: 10/24/24 12:26 Dose: Not Given Documented By: LMC Co-signed By: KS Admin: 10/24/24 07:33 Dose: Not Given Documented By: LMC Co-signed By: MRE Admin: 10/23/24 20:29 Dose: Not Given Documented By: Admin: 10/23/24 16:37 Dose: Not Given Documented By: LMC Co-signed By: MRE Admin: 10/23/24 11:42 Dose: Not Given Documented By: LMC Co-signed By: ASIF Admin: 10/23/24 08:27 Dose: Not Given Documented By: LMC Co-signed By: MPS Admin: 10/22/24 21:19 Dose: Not Given Documented By: GRECIAY Co-signed By: MLKeron Admin: 10/22/24 17:22 Dose: Not Given Documented By: Admin: 10/22/24 11:36 Dose: Not Given Documented By: NISA Co-signed By: wnt Admin: 10/22/24 09:12 Dose: Not Given Documented By: wnt Co-signed By: NISA Admin: 10/21/24 20:38 Dose: Not Given Documented By: je Co-signed By: HLJ Admin: 10/21/24 16:44 Dose: Not Given Documented By: Admin: 10/21/24 11:36 Dose: Not Given Documented By: Admin: 10/21/24 07:32 Dose: Not Given Documented By: Admin: 10/20/24 20:41 Dose: Not Given Documented By: Admin: 10/20/24 16:47 Dose: Not Given Documented By: Admin: 10/20/24 11:42 Dose: Not Given Documented By: Admin: 10/20/24 07:46 Dose: Not Given Documented By: Admin: 10/19/24 21:15 Dose: Not Given Documented By: Admin: 10/19/24 17:23 Dose: Not Given Documented By: LMC Co-signed By: AA Admin: 10/19/24 12:32 Dose: Not Given Documented By: LMC Co-signed By: AA Admin: 10/19/24 07:41 Dose: Not Given Documented By: LMC Co-signed By: AA Admin: 10/18/24 21:15 Dose: Not Given Documented By: snc Co-signed By: ANS Admin: 10/18/24 17:04 Dose: Not Given Documented By: LMC Co-signed By: AAH Admin: 10/18/24 11:58 Dose: Not Given Documented By: LMC Co-signed By: CSE Admin: 10/18/24 08:18 Dose: Not Given Documented By: LMC Co-signed By: VGS Admin: 10/17/24 21:36 Dose: Not Given Documented By: Admin: 10/17/24 17:45 Dose: Not Given Documented By: Admin: 10/17/24 12:08 Dose: Not Given Documented By: Admin: 10/17/24 08:58 Dose: Not Given Documented By: Admin: 10/16/24 20:46 Dose: Not Given Documented By: Admin: 10/16/24 17:06 Dose: Not Given Documented By: Admin: 10/16/24 12:00 Dose: Not Given Documented By: Admin: 10/16/24 09:14 Dose: Not Given Documented By: Admin: 10/15/24 21:06 Dose: Not Given Documented By: rodriguez Co-signed By: TERI Admin: 10/15/24 17:11 Dose: Not Given Documented By: DMH Co-signed By: BECCA Admin: 10/15/24 11:33 Dose: Not Given Documented By: DMH Co-signed By: AA Admin: 10/15/24 09:14 Dose: Not Given Documented By: BRYSONH Co-signed By: PIERRE Admin: 10/14/24 20:39 Dose: Not Given Documented By: Admin: 10/14/24 16:50 Dose: Not Given Documented By: EW Lactobacillus Acidophilus (Advanced Probiotic 625 Mg Capsule) 1,250 mg PO DAILY [place] Stop: 11/09/24 08:59 Last Admin: 10/31/24 08:36 Dose: 1,250 mg Documented By: Admin: 10/30/24 09:02 Dose: 1,250 mg Documented By: Admin: 10/29/24 10:30 Dose: 1,250 mg Documented By: Admin: 10/28/24 08:46 Dose: 1,250 mg Documented By: Admin: 10/27/24 09:28 Dose: 1,250 mg Documented By: cak Admin: 10/26/24 08:09 Dose: 1,250 mg Documented By: Admin: 10/25/24 07:38 Dose: 1,250 mg Documented By: Admin: 10/24/24 07:29 Dose: 1,250 mg Documented By: Admin: 10/23/24 09:41 Dose: 1,250 mg Documented By: Admin: 10/22/24 09:14 Dose: 1,250 mg Documented By: wnt Admin: 10/21/24 07:34 Dose: 1,250 mg Documented By: Admin: 10/20/24 07:53 Dose: 1,250 mg Documented By: Admin: 10/19/24 08:13 Dose: 1,250 mg Documented By: Admin: 10/18/24 08:12 Dose: 1,250 mg Documented By: Admin: 10/17/24 08:57 Dose: 1,250 mg Documented By: Admin: 10/16/24 12:23 Dose: Not Given Documented By: Admin: 10/15/24 09:43 Dose: 1,250 mg Documented By: Admin: 10/14/24 12:55 Dose: 1,250 mg Documented By: Admin: 10/13/24 08:44 Dose: 1,250 mg Documented By: Admin: 10/12/24 09:02 Dose: 1,250 mg Documented By: Admin: 10/11/24 09:06 Dose: 1,250 mg Documented By: rhonda Admin: 10/10/24 08:52 Dose: 1,250 mg Documented By: rhonda Levofloxacin (Levofloxacin 500 Mg Tab) 500 mg PO [facility]; Protocol Stop: 11/07/24 08:59 Last Admin: 10/14/24 12:57 Dose: 500 mg Documented By: Admin: 10/13/24 08:44 Dose: 500 mg Documented By: Admin: 10/12/24 09:02 Dose: 500 mg Documented By: Admin: 10/11/24 09:06 Dose: 500 mg Documented By: rhonda Admin: 10/10/24 08:52 Dose: 500 mg Documented By: rhonda Admin: 10/09/24 09:54 Dose: 500 mg Documented By: Admin: 10/08/24 08:36 Dose: 500 mg Documented By: HUNTER Lidocaine (Lidocaine 5% 1 Patch) 1 patch TD QAM [place] Stop: 11/07/24 08:59 Last Admin: 10/31/24 08:37 Dose: 1 patch Documented By: Admin: 10/30/24 09:03 Dose: 1 patch Documented By: Admin: 10/29/24 10:25 Dose: 1 patch Documented By: Admin: 10/28/24 07:37 Dose: 1 patch Documented By: Admin: 10/27/24 09:27 Dose: 1 patch Documented By: juliana Admin: 10/26/24 10:00 Dose: Not Given Documented By: Admin: 10/25/24 07:39 Dose: 1 patch Documented By: Admin: 10/24/24 07:29 Dose: 1 patch Documented By: LMLance Admin: 10/23/24 09:41 Dose: 1 patch Documented By: Admin: 10/22/24 09:19 Dose: 1 patch Documented By: beny Admin: 10/21/24 07:35 Dose: 1 patch Documented By: Admin: 10/20/24 08:00 Dose: 1 patch Documented By: Admin: 10/19/24 08:13 Dose: Not Given Documented By: Admin: 10/18/24 08:12 Dose: Not Given Documented By: Admin: 10/17/24 09:00 Dose: Not Given Documented By: Admin: 10/16/24 17:08 Dose: Not Given Documented By: Admin: 10/15/24 10:23 Dose: Not Given Documented By: Admin: 10/14/24 12:12 Dose: Not Given Documented By: Admin: 10/13/24 08:46 Dose: Not Given Documented By: Admin: 10/12/24 09:04 Dose: 1 patch Documented By: Admin: 10/11/24 09:26 Dose: Not Given Documented By: rhonda Admin: 10/10/24 08:53 Dose: 1 patch Documented By: rhonda Admin: 10/09/24 12:52 Dose: 1 patch Documented By: Admin: 10/08/24 08:36 Dose: 1 patch Documented By: HUNTER Melatonin (Melatonin 3 Mg Tab) 3 mg PO HS PRN PRN Reason: Insomnia Stop: 11/07/24 03:07 Last Admin: 10/28/24 19:40 Dose: 3 mg Documented By: Admin: 10/27/24 20:09 Dose: 3 mg Documented By: Admin: 10/26/24 21:15 Dose: 3 mg Documented By: Admin: 10/25/24 22:00 Dose: 3 mg Documented By: Admin: 10/24/24 21:17 Dose: 3 mg Documented By: Admin: 10/23/24 19:41 Dose: 3 mg Documented By: Admin: 10/22/24 21:25 Dose: 3 mg Documented By: Admin: 10/20/24 21:39 Dose: 3 mg Documented By: Admin: 10/19/24 21:58 Dose: 3 mg Documented By: Admin: 10/18/24 21:46 Dose: 3 mg Documented By: snc Admin: 10/17/24 21:48 Dose: 3 mg Documented By: snc Admin: 10/16/24 22:47 Dose: 3 mg Documented By: MARILOU Mirtazapine (Mirtazapine Tab 15 Mg Tab) 7.5 mg PO HS [place] Stop: 11/25/24 20:59 Last Admin: 10/30/24 21:02 Dose: 7.5 mg Documented By: je Admin: 10/29/24 20:54 Dose: 7.5 mg Documented By: je Admin: 10/28/24 19:41 Dose: 7.5 mg Documented By: Admin: 10/27/24 20:11 Dose: 7.5 mg Documented By: Admin: 10/26/24 21:09 Dose: 7.5 mg Documented By: NESTOR Miscellaneous (Remove Lidoderm Patch) 1 each N/A DAILY@2100 [place] Stop: 11/07/24 20:59 Last Admin: 10/30/24 20:59 Dose: 1 each Documented By: je Admin: 10/29/24 20:58 Dose: 1 each Documented By: je Admin: 10/28/24 19:41 Dose: 1 each Documented By: Admin: 10/27/24 20:11 Dose: 1 each Documented By: Admin: 10/26/24 21:10 Dose: Not Given Documented By: Admin: 10/25/24 21:56 Dose: 1 each Documented By: Admin: 10/24/24 21:17 Dose: 1 each Documented By: Admin: 10/23/24 19:44 Dose: 1 each Documented By: Admin: 10/22/24 21:27 Dose: 1 each Documented By: Admin: 10/21/24 22:01 Dose: Not Given Documented By: je Admin: 10/20/24 21:46 Dose: 1 each Documented By: Admin: 10/19/24 21:58 Dose: 1 each Documented By: Admin: 10/18/24 22:29 Dose: Not Given Documented By: [email or web address] Admin: 10/17/24 21:07 Dose: Not Given Documented By: Admin: 10/16/24 20:39 Dose: 1 each Documented By: Admin: 10/15/24 21:19 Dose: Not Given Documented By: [email or web address] Admin: 10/14/24 20:39 Dose: Not Given Documented By: Admin: 10/13/24 20:17 Dose: Not Given Documented By: Admin: 10/12/24 20:27 Dose: Not Given Documented By: Admin: 10/11/24 21:34 Dose: 1 each Documented By: Admin: 10/10/24 21:08 Dose: 1 each Documented By: Admin: 10/09/24 20:22 Dose: 1 each Documented By: Admin: 10/08/24 20:40 Dose: 1 each Documented By: MARILEE Oxycodone HCl (Oxycodone Hcl 10 Mg Tabcr (Oxycontin)) 10 mg PO Q12 [place] Stop: 11/14/24 08:59 Last Admin: 10/31/24 08:37 Dose: 10 mg Documented By: RRD Oxycodone HCl (Oxycodone Hcl Ir 5 Mg Tab (Immediate Release)) 5 mg PO Q4 PRN PRN Reason: Severe Pain (Scale 7, 8, 9,10) Stop: 11/05/24 04:14 Last Admin: 10/31/24 12:09 Dose: 5 mg Documented By: TERRIE Polyethylene Glycol (Polyethylene (Miralax) 17 Gm Pack) 17 gm PO QAM [place] Stop: 11/19/24 08:59 Last Admin: 10/31/24 08:42 Dose: 17 gm Documented By: Admin: 10/30/24 09:01 Dose: 17 gm Documented By: Admin: 10/29/24 10:25 Dose: 17 gm Documented By: Admin: 10/28/24 08:46 Dose: 17 gm Documented By: Admin: 10/27/24 12:24 Dose: Not Given Documented By: Admin: 10/26/24 08:03 Dose: Not Given Documented By: Admin: 10/25/24 07:46 Dose: Not Given Documented By: Admin: 10/24/24 07:30 Dose: 17 gm Documented By: Admin: 10/23/24 09:41 Dose: 17 gm Documented By: Admin: 10/22/24 09:23 Dose: 17 gm Documented By: beny Admin: 10/21/24 07:35 Dose: Not Given Documented By: Admin: 10/20/24 07:52 Dose: 17 gm Documented By: FILI Potassium Chloride (Potassium Chloride Crtab 20 Meq Tabcr) 20 meq PO DAILY [place] Stop: 11/27/24 08:59 Last Admin: 10/31/24 08:36 Dose: 20 meq Documented By: Admin: 10/30/24 09:01 Dose: 20 meq Documented By: Admin: 10/29/24 10:30 Dose: 20 meq Documented By: Admin: 10/28/24 08:46 Dose: 20 meq Documented By: BECCA Pregabalin (Pregabalin 25 Mg Cap) 25 mg PO TID [place] Stop: 11/30/24 08:59 Last Admin: 10/31/24 08:36 Dose: 25 mg Documented By: TERRIE Senna/Docusate Sodium (Docusate Sodium/Senna 50/8.6mg Tab) 1 tab PO BID [place] Stop: 11/07/24 08:59 Last Admin: 10/31/24 08:37 Dose: 1 tab Documented By: Admin: 10/30/24 20:58 Dose: Not Given Documented By: je Admin: 10/30/24 09:01 Dose: 1 tab Documented By: Admin: 10/29/24 20:57 Dose: Not Given Documented By: je Admin: 10/29/24 10:30 Dose: 1 tab Documented By: Admin: 10/28/24 19:40 Dose: 1 tab Documented By: Admin: 10/28/24 08:46 Dose: 1 tab Documented By: Admin: 10/27/24 20:10 Dose: Not Given Documented By: Admin: 10/27/24 12:24 Dose: Not Given Documented By: Admin: 10/26/24 21:08 Dose: Not Given Documented By: Admin: 10/26/24 08:02 Dose: Not Given Documented By: Admin: 10/25/24 22:00 Dose: 1 tab Documented By: Admin: 10/25/24 07:38 Dose: 1 tab Documented By: K Admin: 10/24/24 21:17 Dose: 1 tab Documented By: Admin: 10/24/24 07:29 Dose: 1 tab Documented By: Admin: 10/23/24 19:40 Dose: 1 tab Documented By: Admin: 10/23/24 09:40 Dose: 1 tab Documented By: Admin: 10/22/24 21:25 Dose: 1 tab Documented By: Admin: 10/22/24 09:27 Dose: Not Given Documented By: beny Admin: 10/21/24 20:37 Dose: 1 tab Documented By: je Admin: 10/21/24 07:44 Dose: 1 tab Documented By: Admin: 10/20/24 21:40 Dose: 1 tab Documented By: Admin: 10/20/24 07:52 Dose: 1 tab Documented By: Admin: 10/19/24 21:58 Dose: 1 tab Documented By: Admin: 10/19/24 08:14 Dose: 1 tab Documented By: Admin: 10/18/24 21:42 Dose: Not Given Documented By: snc Admin: 10/18/24 08:12 Dose: Not Given Documented By: Admin: 10/17/24 21:51 Dose: Not Given Documented By: snc Admin: 10/17/24 09:00 Dose: Not Given Documented By: Admin: 10/16/24 20:38 Dose: 1 tab Documented By: Admin: 10/16/24 12:23 Dose: Not Given Documented By: Admin: 10/15/24 21:19 Dose: Not Given Documented By: [email or web address] Admin: 10/15/24 09:42 Dose: Not Given Documented By: [email or web address] Admin: 10/14/24 20:19 Dose: Not Given Documented By: Admin: 10/14/24 09:59 Dose: Not Given Documented By: Admin: 10/13/24 20:17 Dose: 1 tab Documented By: Admin: 10/13/24 08:44 Dose: 1 tab Documented By: Admin: 10/12/24 20:21 Dose: 1 tab Documented By: Admin: 10/12/24 09:00 Dose: 1 tab Documented By: Admin: 10/11/24 21:39 Dose: Not Given Documented By: Admin: 10/11/24 07:57 Dose: Not Given Documented By: rhonda Admin: 10/10/24 20:36 Dose: Not Given Documented By: Admin: 10/10/24 08:52 Dose: 1 tab Documented By: rhonda Admin: 10/09/24 20:18 Dose: 1 tab Documented By: Admin: 10/09/24 10:11 Dose: 1 tab Documented By: Admin: 10/08/24 20:37 Dose: 1 tab Documented By: Admin: 10/08/24 08:43 Dose: 1 tab Documented By: HUNTER Voriconazole (Voriconazole 200 Mg Tablet) 200 mg PO Q12 [place] Stop: 11/07/24 08:59 Last Admin: 10/31/24 08:36 Dose: 200 mg Documented By: Admin: 10/30/24 21:01 Dose: 200 mg Documented By: je Admin: 10/30/24 09:03 Dose: 200 mg Documented By: Admin: 10/29/24 20:54 Dose: 200 mg Documented By: [email or web address] Admin: 10/29/24 10:30 Dose: 200 mg Documented By: Admin: 10/28/24 19:39 Dose: 200 mg Documented By: Admin: 10/28/24 08:46 Dose: 200 mg Documented By: Admin: 10/27/24 20:11 Dose: 200 mg Documented By: Admin: 10/27/24 09:28 Dose: 200 mg Documented By: cak Admin: 10/26/24 21:10 Dose: 200 mg Documented By: Admin: 10/26/24 08:10 Dose: 200 mg Documented By: Admin: 10/25/24 21:55 Dose: 200 mg Documented By: Admin: 10/25/24 07:38 Dose: 200 mg Documented By: Admin: 10/24/24 21:17 Dose: 200 mg Documented By: Admin: 10/24/24 07:30 Dose: 200 mg Documented By: Admin: 10/23/24 19:42 Dose: 200 mg Documented By: Admin: 10/23/24 09:41 Dose: 200 mg Documented By: Admin: 10/22/24 21:27 Dose: 200 mg Documented By: Admin: 10/22/24 09:15 Dose: 200 mg Documented By: beny Admin: 10/21/24 20:36 Dose: 200 mg Documented By: je Admin: 10/21/24 07:35 Dose: 200 mg Documented By: Admin: 10/20/24 21:39 Dose: 200 mg Documented By: Admin: 10/20/24 07:59 Dose: 200 mg Documented By: Admin: 10/19/24 21:58 Dose: 200 mg Documented By: Admin: 10/19/24 08:12 Dose: 200 mg Documented By: Admin: 10/18/24 21:46 Dose: 200 mg Documented By: snc Admin: 10/18/24 08:13 Dose: 200 mg Documented By: Admin: 10/17/24 21:50 Dose: 200 mg Documented By: snc Admin: 10/17/24 08:56 Dose: 200 mg Documented By: Admin: 10/16/24 20:41 Dose: 200 mg Documented By: ALVic Admin: 10/16/24 09:12 Dose: 200 mg Documented By: Admin: 10/15/24 21:24 Dose: 200 mg Documented By: [email or web address] Admin: 10/15/24 09:46 Dose: 200 mg Documented By: Admin: 10/14/24 20:19 Dose: 200 mg Documented By: Admin: 10/14/24 12:55 Dose: 200 mg Documented By: Admin: 10/13/24 20:17 Dose: 200 mg Documented By: Admin: 10/13/24 08:44 Dose: 200 mg Documented By: Admin: 10/12/24 20:21 Dose: 200 mg Documented By: Admin: 10/12/24 09:02 Dose: 200 mg Documented By: Admin: 10/11/24 21:38 Dose: 200 mg Documented By: Admin: 10/11/24 09:06 Dose: 200 mg Documented By: rhonda Admin: 10/10/24 21:07 Dose: 200 mg Documented By: Admin: 10/10/24 08:52 Dose: 200 mg Documented By: rhonda Admin: 10/09/24 20:22 Dose: 200 mg Documented By: Admin: 10/09/24 09:52 Dose: 200 mg Documented By: Admin: 10/08/24 20:38 Dose: 200 mg Documented By: Admin: 10/08/24 08:35 Dose: 200 mg Documented By: HUNTER
[2024-11-01 06:06] LABS: Hematocrit (blood only) 26.6 % (37.0-47.0); Hemoglobin 8.6 g/dl (12.0-16.0); Mean Corpuscular Hemoglobin 32.1 pg (25.0-34.0); Mean Corpuscular Volume 99.3 fL (80.0-100.0); Platelet Count 202 K/uL (130-400); RDW Standard Deviation 60.8 fL (36.4-46.3); Red Blood Count 2.68 M/uL (4.20-5.40); White Blood Count 5.08 K/ul (4.8-10.8)
[2024-11-01 06:23] LABS: Anion Gap 6.0 (3-11); Blood Urea Nitrogen 9.0 mg/dl (6-23); Calcium 8.2 mg/dl (8.6-10.3); Carbon Dioxide 26.0 mmol/L (21-32); Chloride 108.0 mmol/L (98-107); Creatinine Clr Calc Pharmacy 111.4 ml/min; Glucose 86.0 mg/dl (70-99(Fasting)); Potassium 3.7 mmol/L (3.5-5.1); Sodium 140.0 mmol/L (136-145)
--- NOTE | 2024-11-01 13:43 | Hospitalist Progress Note ---
Date of Service November 01, 2024 Assessment & Plan (1) Severe back pain: Plan: 79 yo F with type 2 diabetes, dyslipidemia, paroxysmal SVT, hypertension, GERD, osteoarthritis of both knees, AML, generalized anxiety disorder, spinal stenosis of lumbar region, persistent insomnia who was recently in the hospital for lumbar spine compression fracture and discharged to rehab comes back with severe back pain. Severe back pain L1 and L3 compression fractures Staph epidermidis bacteremia Bilateral iliopsoas muscle fluid collections, likely infected -Came in from rehab -CT scan done in the ER shows same L1 L3 compression fractures -MRI Lumbar spine reviewed: + fluid collections, edema iliopsoas, bilateral, likely infected -s/p IR drainage of lumbar spine, per ortho no surgical intervention -used 1 as needed medication for pain in past 24 hours suggesting adequate pain control Plan- -ortho consult, appreciate recs -appreciate IR assistance with case -will need 6-8 weeks of IV vancomycin per ID, repeat MRI at end of treatment course -awaiting rehab placement, PICC line placed -continue oxycontin 10mg bid based on 24 hour oxycodone need, continue pregablin 25 tid -increase oxycodone 5mg frequency prn to q4hrs -stop cyclobenzaprine Staph epidermidis bacteremia -Initial blood culture (10/07): Staph epidermidis 1 out of 2 bottles -Repeat blood cultures (10/10): Staph epidermidis 1 out of 2 bottles -Echocardiogram: No mention of possible vegetation -ID service recommends removal of indwelling port, port removed on 10/14 -third set of blood cultures (10/15): NEGATIVE Lower abdominal Discomfort -resolved Hypokalemia -replenished AML undergoing chemotherapy History of pancytopenia -WBC 6.5. Hemoglobin 10.1. Platelets 340 -Currently undergoing monthly chemotherapy with decitabine/venetoclax -Last chemo was in August. -This month chemo was delayed because patient was in rehab -Has appointment with Dr. Gaines on 10/29/2024 per last admission -Continue suppressive antibiotics Levaquin, voriconazole and acyclovir -continue acyclovir Hypertension -Continue amlodipine Hyperlipidemia On statin Anxiety/depression -Psych service consulted -continue citalopram and mirtazapine Diabetes -Sliding scale for now Recent A port placement -port removed Discussed case extensively with both daughters in chart. Discussed her current condition, her improvement in pain control, concerns regarding her mentation and debility, and expectations that she may not return to her prior baseline. Also discussed need to get to rehab sooner rather than later to prevent worsening debility and ensure ability to receive more treatments for her AML. Both were appreciative of the update. I spent a total of 60 minutes in direct patient care, including [id number] with the patient and/or family, reviewing medical records, ordering and reviewing diagnostic tests, and coordinating care with other healthcare providers. This time includes: history taking, physical examination, medical decision making, counseling, ECG interpretation, imaging interpretation, lab interpretation, orders, and education, excluding time spent in the performance of separately billed services. Admission and Anticipated Discharge Date Admission Date: October 08, 2024 Subjective Patient seen and examined at bedside. Patient doing well today. She states she has felt a bit sleepy today but is moving better throughout the hallways. She feels her pain control has been getting better every day. Review of Systems Review of Systems: CONSTITUTIONAL: weakness EYES: Patient denies any visual symptoms. EARS, NOSE, AND THROAT: No difficulties with hearing. No symptoms of rhinitis or sore throat. CARDIOVASCULAR: Patient denies chest pains, palpitations, orthopnea and paroxysmal nocturnal dyspnea. RESPIRATORY: No dyspnea on exertion, no wheezing or cough. GI: No nausea, vomiting, diarrhea, constipation, abdominal pain, hematochezia or melena. : No urinary hesitancy or dribbling. No nocturia or urinary frequency. No abnormal urethral discharge. MUSCULOSKELETAL: lower back pain NEUROLOGIC: No chronic headaches, no seizures. Patient denies numbness, tingling or weakness. PSYCHIATRIC: Patient denies problems with mood disturbance. No problems with anxiety. ENDOCRINE: No excessive urination or excessive thirst. DERMATOLOGIC: Patient denies any rashes or skin changes. Physical Exam Physical Exam: Gen: A&O 3 NAD HEENT: NCAT, EOMI, not icteric. External ears normal. No rhinorrhea. Moist mucous membranes. Neck: Supple, full range of motion, no observable masses, No meningeal sign. Lungs: No Respiratory distress. CV: RRR, no edema. Abdomen: Soft, nondistended, No rebound tenderness. MSK: tenderness in lower back to palpation improved from prior Skin: No rashes, petechiae, lesions. Normal color per patient. Neuro: Normal Gait, Grossly intact. Psych: Appropriate for situation. Results & Data Results & Data Vital Signs (Past 12 Hours) Vital Signs Temp Pulse Resp BP Pulse Ox O2 Del Method 11/01/24 07:13 36.7 C 84 16 112/70 92 Room Air Laboratory Results -personally reviewed, no leukocytosis, Hgb stable, calcium 8.2 replenished Medications Administered Acetaminophen (Acetaminophen 500 Mg Tab) 1,000 mg PO Q8H [place] Stop: 11/22/24 09:59 Last Admin: 11/01/24 10:09 Dose: 1,000 mg Documented By: Admin: 11/01/24 01:02 Dose: 1,000 mg Documented By: Admin: 10/31/24 17:07 Dose: 1,000 mg Documented By: RRValarie Admin: 10/31/24 11:06 Dose: 1,000 mg Documented By: Admin: 10/31/24 01:37 Dose: 1,000 mg Documented By: je Admin: 10/30/24 18:05 Dose: 1,000 mg Documented By: Admin: 10/30/24 09:01 Dose: 1,000 mg Documented By: Admin: 10/30/24 01:18 Dose: 1,000 mg Documented By: je Admin: 10/29/24 17:32 Dose: 1,000 mg Documented By: Admin: 10/29/24 10:30 Dose: 1,000 mg Documented By: Admin: 10/29/24 05:05 Dose: 1,000 mg Documented By: Admin: 10/29/24 02:16 Dose: Not Given Documented By: Admin: 10/28/24 17:57 Dose: 1,000 mg Documented By: Admin: 10/28/24 10:13 Dose: 1,000 mg Documented By: Admin: 10/28/24 01:23 Dose: 1,000 mg Documented By: Admin: 10/27/24 18:04 Dose: Not Given Documented By: cak Admin: 10/27/24 12:24 Dose: 1,000 mg Documented By: Admin: 10/27/24 01:07 Dose: 1,000 mg Documented By: Admin: 10/26/24 17:20 Dose: 1,000 mg Documented By: K Admin: 10/26/24 10:05 Dose: 1,000 mg Documented By: Admin: 10/26/24 01:12 Dose: 1,000 mg Documented By: Admin: 10/25/24 17:16 Dose: 1,000 mg Documented By: Admin: 10/25/24 09:58 Dose: 1,000 mg Documented By: Admin: 10/25/24 01:00 Dose: 1,000 mg Documented By: Admin: 10/24/24 17:30 Dose: 1,000 mg Documented By: Admin: 10/24/24 10:00 Dose: 1,000 mg Documented By: Admin: 10/24/24 02:16 Dose: 1,000 mg Documented By: Admin: 10/23/24 18:00 Dose: 1,000 mg Documented By: Admin: 10/23/24 09:45 Dose: 1,000 mg Documented By: BRIANNA Acyclovir (Acyclovir 400 Mg Tab) 400 mg PO BID [place] Stop: 11/07/24 08:59 Last Admin: 11/01/24 07:54 Dose: 400 mg Documented By: Admin: 10/31/24 21:05 Dose: 400 mg Documented By: Admin: 10/31/24 08:36 Dose: 400 mg Documented By: Admin: 10/30/24 21:00 Dose: 400 mg Documented By: je Admin: 10/30/24 09:02 Dose: 400 mg Documented By: Admin: 10/29/24 20:54 Dose: 400 mg Documented By: je Admin: 10/29/24 10:30 Dose: 400 mg Documented By: Admin: 10/28/24 19:40 Dose: 400 mg Documented By: Admin: 10/28/24 08:46 Dose: 400 mg Documented By: Admin: 10/27/24 20:10 Dose: 400 mg Documented By: Admin: 10/27/24 09:29 Dose: 400 mg Documented By: juliana Admin: 10/26/24 21:08 Dose: 400 mg Documented By: Admin: 10/26/24 08:09 Dose: 400 mg Documented By: Admin: 10/25/24 21:56 Dose: 400 mg Documented By: Admin: 10/25/24 07:39 Dose: 400 mg Documented By: Admin: 10/24/24 21:16 Dose: 400 mg Documented By: Admin: 10/24/24 07:28 Dose: 400 mg Documented By: Admin: 10/23/24 19:42 Dose: 400 mg Documented By: Admin: 10/23/24 09:39 Dose: 400 mg Documented By: Admin: 10/22/24 21:26 Dose: 400 mg Documented By: Admin: 10/22/24 09:14 Dose: 400 mg Documented By: beny Admin: 10/21/24 20:37 Dose: 400 mg Documented By: je Admin: 10/21/24 07:47 Dose: 400 mg Documented By: Admin: 10/20/24 21:38 Dose: 400 mg Documented By: Admin: 10/20/24 07:53 Dose: 400 mg Documented By: Admin: 10/19/24 21:58 Dose: 400 mg Documented By: Admin: 10/19/24 08:12 Dose: 400 mg Documented By: Admin: 10/18/24 21:46 Dose: 400 mg Documented By: snc Admin: 10/18/24 08:11 Dose: 400 mg Documented By: Admin: 10/17/24 21:50 Dose: 400 mg Documented By: snc Admin: 10/17/24 08:57 Dose: 400 mg Documented By: Admin: 10/16/24 20:38 Dose: 400 mg Documented By: Admin: 10/16/24 09:17 Dose: 400 mg Documented By: Admin: 10/15/24 21:03 Dose: 400 mg Documented By: ksy Admin: 10/15/24 09:44 Dose: 400 mg Documented By: Admin: 10/14/24 20:19 Dose: 400 mg Documented By: Admin: 10/14/24 09:59 Dose: Not Given Documented By: Admin: 10/13/24 20:17 Dose: 400 mg Documented By: Admin: 10/13/24 08:45 Dose: 400 mg Documented By: Admin: 10/12/24 20:21 Dose: 400 mg Documented By: Admin: 10/12/24 09:03 Dose: 400 mg Documented By: Admin: 10/11/24 21:38 Dose: 400 mg Documented By: Admin: 10/11/24 09:05 Dose: 400 mg Documented By: cjk Admin: 10/10/24 21:08 Dose: 400 mg Documented By: Admin: 10/10/24 08:52 Dose: 400 mg Documented By: baljitk Admin: 10/09/24 20:22 Dose: 400 mg Documented By: Admin: 10/09/24 09:50 Dose: 400 mg Documented By: Admin: 10/08/24 20:37 Dose: 400 mg Documented By: Admin: 10/08/24 08:34 Dose: 400 mg Documented By: HUNTER Amlodipine Besylate (A[facility]odipine Besylate 5 Mg Tab) [facility]: 11/07/24 08:59 Last Admin: 11/01/24 07:54 Dose: 5 mg Documented By: RRValarie Admin: 10/31/24 08:37 Dose: 5 mg Documented By: Admin: 10/30/24 09:02 Dose: 5 mg Documented By: Admin: 10/29/24 10:31 Dose: 5 mg Documented By: Admin: 10/28/24 08:46 Dose: 5 mg Documented By: Admin: 10/27/24 09:28 Dose: 5 mg Documented By: cak Admin: 10/26/24 08:09 Dose: 5 mg Documented By: Admin: 10/25/24 07:38 Dose: 5 mg Documented By: Admin: 10/24/24 07:28 Dose: 5 mg Documented By: Admin: 10/23/24 09:39 Dose: 5 mg Documented By: Admin: 10/22/24 09:15 Dose: 5 mg Documented By: beny Admin: 10/21/24 07:33 Dose: 5 mg Documented By: Admin: 10/20/24 07:53 Dose: 5 mg Documented By: Admin: 10/19/24 08:12 Dose: 5 mg Documented By: Admin: 10/18/24 08:11 Dose: 5 mg Documented By: Admin: 10/17/24 08:57 Dose: 5 mg Documented By: Admin: 10/16/24 09:18 Dose: 5 mg Documented By: Admin: 10/15/24 09:43 Dose: 5 mg Documented By: Admin: 10/14/24 12:56 Dose: 5 mg Documented By: Admin: 10/13/24 08:45 Dose: 5 mg Documented By: Admin: 10/12/24 09:03 Dose: 5 mg Documented By: Admin: 10/11/24 09:05 Dose: 5 mg Documented By: rhonda Admin: 10/10/24 08:52 Dose: 5 mg Documented By: rhonda Admin: 10/09/24 09:51 Dose: 5 mg Documented By: Admin: 10/08/24 08:36 Dose: 5 mg Documented By: HUNTER Atorvastatin Calcium (Atorvastatin 20 Mg Tab) 20 mg PO HS [place] Stop: 11/07/24 20:59 Last Admin: 10/10/24 21:08 Dose: 20 mg Documented By: Admin: 10/09/24 20:22 Dose: 20 mg Documented By: Admin: 10/08/24 20:37 Dose: 20 mg Documented By: MARILEE Citalopram Hydrobromide (Citalopram 20 Mg Tab) 20 mg PO QAM [place] Stop: 11/26/24 08:59 Last Admin: 11/01/24 07:54 Dose: 20 mg Documented By: Admin: 10/31/24 08:36 Dose: 20 mg Documented By: Admin: 10/30/24 09:02 Dose: 20 mg Documented By: Admin: 10/29/24 10:30 Dose: 20 mg Documented By: Admin: 10/28/24 08:46 Dose: 20 mg Documented By: Admin: 10/27/24 09:28 Dose: 20 mg Documented By: juliana Cyanocobalamin (Cyanocobalamin (B-12) 500 Mcg Tablet) 1,000 mcg PO QAM [place] Stop: 11/21/24 09:59 Last Admin: 11/01/24 07:54 Dose: 1,000 mcg Documented By: Admin: 10/31/24 08:36 Dose: 1,000 mcg Documented By: Admin: 10/30/24 09:02 Dose: 1,000 mcg Documented By: Admin: 10/29/24 10:31 Dose: 1,000 mcg Documented By: Admin: 10/28/24 08:47 Dose: 1,000 mcg Documented By: Admin: 10/27/24 09:28 Dose: 1,000 mcg Documented By: juliana Admin: 10/26/24 08:09 Dose: 1,000 mcg Documented By: Admin: 10/25/24 07:38 Dose: 1,000 mcg Documented By: Admin: 10/24/24 07:29 Dose: 1,000 mcg Documented By: Admin: 10/23/24 09:40 Dose: 1,000 mcg Documented By: Admin: 10/22/24 11:48 Dose: Not Given Documented By: NISA Enoxaparin Sodium (Enoxaparin Inj 40 Mg/0.4 Ml Syr) 40 mg SQ Q24H [place] Stop: 11/07/24 08:59 Last Admin: 11/01/24 07:55 Dose: 40 mg Documented By: Admin: 10/31/24 08:37 Dose: 40 mg Documented By: Admin: 10/30/24 09:02 Dose: 40 mg Documented By: Admin: 10/29/24 10:31 Dose: 40 mg Documented By: Admin: 10/28/24 08:46 Dose: 40 mg Documented By: Admin: 10/27/24 09:29 Dose: 40 mg Documented By: juliana Admin: 10/26/24 08:03 Dose: Not Given Documented By: Admin: 10/25/24 07:39 Dose: Not Given Documented By: Admin: 10/13/24 08:46 Dose: Not Given Documented By: Admin: 10/12/24 09:04 Dose: 40 mg Documented By: Admin: 10/11/24 09:06 Dose: 40 mg Documented By: rhonda Admin: 10/10/24 08:52 Dose: 40 mg Documented By: rhonda Admin: 10/09/24 09:51 Dose: 40 mg Documented By: Admin: 10/08/24 08:37 Dose: 40 mg Documented By: SLPrasanth Heparin Sodium (Beef Lung) (Heparin 10 Unit/Ml 5 Ml Flush) 5 ml FLUSH PRN PRN PRN Reason: Flush Stop: 11/23/24 17:29 Last Admin: 10/31/24 22:40 Dose: 5 ml Documented By: Admin: 10/31/24 05:37 Dose: 5 ml Documented By: Admin: 10/30/24 05:50 Dose: 5 ml Documented By: Admin: 10/29/24 05:20 Dose: 5 ml Documented By: Admin: 10/28/24 05:28 Dose: 5 ml Documented By: Admin: 10/27/24 20:13 Dose: 5 ml Documented By: Admin: 10/27/24 02:19 Dose: 5 ml Documented By: Admin: 10/26/24 08:08 Dose: 5 ml Documented By: Admin: 10/25/24 22:00 Dose: 5 ml Documented By: Admin: 10/24/24 18:55 Dose: 5 ml Documented By: LMC Heparin Sodium (Porcine) (Heparin 100 Unit/Ml 5ml Flush) 5 ml FLUSH PRN PRN PRN Reason: Flush Stop: 11/07/24 03:03 Last Admin: 10/23/24 19:43 Dose: 5 ml Documented By: Admin: 10/12/24 05:22 Dose: 5 ml Documented By: Admin: 10/09/24 10:11 Dose: 5 ml Documented By: ARTEMIO Vancomycin HCl 750 mg/ Sodium (Chloride) 265 mls @ 200 mls/hr IV Q8H [place] Stop: 12/03/24 23:59 Last Admin: 11/01/24 13:25 Dose: 200 mls/hr Documented By: RRValarie Infusion: 11/01/24 07:52 Dose: Infused Documented By: Admin: 11/01/24 06:07 Dose: 200 mls/hr Documented By: Infusion: 10/31/24 22:31 Dose: Infused Documented By: Admin: 10/31/24 21:11 Dose: 200 mls/hr Documented By: Infusion: 10/31/24 16:04 Dose: Infused Documented By: Admin: 10/31/24 14:40 Dose: 200 mls/hr Documented By: Infusion: 10/31/24 07:30 Dose: Infused Documented By: Admin: 10/31/24 05:37 Dose: 200 mls/hr Documented By: Infusion: 10/30/24 22:53 Dose: Infused Documented By: Admin: 10/30/24 21:06 Dose: 200 mls/hr Documented By: je Infusion: 10/30/24 16:06 Dose: Infused Documented By: Admin: 10/30/24 14:31 Dose: 200 mls/hr Documented By: Infusion: 10/30/24 07:22 Dose: Infused Documented By: Admin: 10/30/24 05:52 Dose: 200 mls/hr Documented By: je Infusion: 10/29/24 22:37 Dose: Infused Documented By: je Admin: 10/29/24 21:00 Dose: 200 mls/hr Documented By: je Infusion: 10/29/24 16:06 Dose: Infused Documented By: juliana Admin: 10/29/24 14:36 Dose: 200 mls/hr Documented By: Infusion: 10/29/24 06:47 Dose: Infused Documented By: Admin: 10/29/24 05:06 Dose: 200 mls/hr Documented By: Infusion: 10/29/24 00:05 Dose: Infused Documented By: Admin: 10/28/24 22:45 Dose: 200 mls/hr Documented By: Infusion: 10/28/24 15:47 Dose: Infused Documented By: Admin: 10/28/24 14:27 Dose: 200 mls/hr Documented By: Infusion: 10/28/24 07:07 Dose: Infused Documented By: Admin: 10/28/24 05:28 Dose: 200 mls/hr Documented By: Infusion: 10/28/24 00:10 Dose: Infused Documented By: Admin: 10/27/24 22:50 Dose: 200 mls/hr Documented By: Infusion: 10/27/24 16:18 Dose: Infused Documented By: Admin: 10/27/24 14:17 Dose: 200 mls/hr Documented By: ADCharo Insulin Aspart (Insulin Aspart Per Unit Charge) 0 units SC ACHS [place] Stop: 11/13/24 05:59 Last Admin: 11/01/24 11:47 Dose: Not Given Documented By: Admin: 11/01/24 07:52 Dose: Not Given Documented By: Admin: 11/01/24 00:06 Dose: Not Given Documented By: EM Co-signed By: ESTRELLITA Admin: 10/31/24 16:59 Dose: Not Given Documented By: RRValarie Admin: 10/31/24 12:07 Dose: Not Given Documented By: Admin: 10/31/24 09:23 Dose: Not Given Documented By: Admin: 10/30/24 21:00 Dose: Not Given Documented By: je Co-signed By: HLJ Admin: 10/30/24 17:02 Dose: Not Given Documented By: Admin: 10/30/24 12:09 Dose: Not Given Documented By: Admin: 10/30/24 07:43 Dose: Not Given Documented By: Admin: 10/29/24 20:55 Dose: Not Given Documented By: je Co-signed By: HLBob Admin: 10/29/24 16:58 Dose: Not Given Documented By: Admin: 10/29/24 11:27 Dose: Not Given Documented By: Admin: 10/29/24 09:01 Dose: Not Given Documented By: Admin: 10/28/24 20:37 Dose: Not Given Documented By: Admin: 10/28/24 16:37 Dose: Not Given Documented By: Admin: 10/28/24 12:04 Dose: Not Given Documented By: Admin: 10/28/24 07:55 Dose: Not Given Documented By: Admin: 10/27/24 20:16 Dose: Not Given Documented By: Admin: 10/27/24 16:47 Dose: Not Given Documented By: juliana Co-signed By: ADCharo Admin: 10/27/24 12:31 Dose: Not Given Documented By: DANUTA Co-signed By: juliana Admin: 10/27/24 09:36 Dose: Not Given Documented By: juliana Co-signed By: ADB Admin: 10/26/24 21:00 Dose: Not Given Documented By: Admin: 10/26/24 17:00 Dose: Not Given Documented By: Admin: 10/26/24 11:58 Dose: Not Given Documented By: Admin: 10/26/24 07:37 Dose: Not Given Documented By: Admin: 10/25/24 21:03 Dose: Not Given Documented By: Admin: 10/25/24 16:49 Dose: Not Given Documented By: Admin: 10/25/24 11:59 Dose: Not Given Documented By: Admin: 10/25/24 08:31 Dose: Not Given Documented By: Admin: 10/24/24 20:58 Dose: Not Given Documented By: Admin: 10/24/24 17:31 Dose: Not Given Documented By: LMC Co-signed By: KS Admin: 10/24/24 12:26 Dose: Not Given Documented By: LMC Co-signed By: KS Admin: 10/24/24 07:33 Dose: Not Given Documented By: LMC Co-signed By: MRE Admin: 10/23/24 20:29 Dose: Not Given Documented By: Admin: 10/23/24 16:37 Dose: Not Given Documented By: LMC Co-signed By: MRE Admin: 10/23/24 11:42 Dose: Not Given Documented By: LMC Co-signed By: ASIF Admin: 10/23/24 08:27 Dose: Not Given Documented By: LMC Co-signed By: MPS Admin: 10/22/24 21:19 Dose: Not Given Documented By: ERIC Co-signed By: SESAR Admin: 10/22/24 17:22 Dose: Not Given Documented By: Admin: 10/22/24 11:36 Dose: Not Given Documented By: KER Co-signed By: wnt Admin: 10/22/24 09:12 Dose: Not Given Documented By: wnt Co-signed By: NISA Admin: 10/21/24 20:38 Dose: Not Given Documented By: je Co-signed By: DENNYJ Admin: 10/21/24 16:44 Dose: Not Given Documented By: Admin: 10/21/24 11:36 Dose: Not Given Documented By: Admin: 10/21/24 07:32 Dose: Not Given Documented By: Admin: 10/20/24 20:41 Dose: Not Given Documented By: Admin: 10/20/24 16:47 Dose: Not Given Documented By: Admin: 10/20/24 11:42 Dose: Not Given Documented By: Admin: 10/20/24 07:46 Dose: Not Given Documented By: Admin: 10/19/24 21:15 Dose: Not Given Documented By: Admin: 10/19/24 17:23 Dose: Not Given Documented By: LMC Co-signed By: BERTRAND Admin: 10/19/24 12:32 Dose: Not Given Documented By: LMC Co-signed By: BERTRAND Admin: 10/19/24 07:41 Dose: Not Given Documented By: LMC Co-signed By: AAH Admin: 10/18/24 21:15 Dose: Not Given Documented By: snc Co-signed By: ANS Admin: 10/18/24 17:04 Dose: Not Given Documented By: LMC Co-signed By: AAH Admin: 10/18/24 11:58 Dose: Not Given Documented By: LMC Co-signed By: CSE Admin: 10/18/24 08:18 Dose: Not Given Documented By: LMC Co-signed By: VGS Admin: 10/17/24 21:36 Dose: Not Given Documented By: Admin: 10/17/24 17:45 Dose: Not Given Documented By: Admin: 10/17/24 12:08 Dose: Not Given Documented By: Admin: 10/17/24 08:58 Dose: Not Given Documented By: Admin: 10/16/24 20:46 Dose: Not Given Documented By: Admin: 10/16/24 17:06 Dose: Not Given Documented By: Admin: 10/16/24 12:00 Dose: Not Given Documented By: Admin: 10/16/24 09:14 Dose: Not Given Documented By: Admin: 10/15/24 21:06 Dose: Not Given Documented By: rodriguez Co-signed By: TERI Admin: 10/15/24 17:11 Dose: Not Given Documented By: DMH Co-signed By: KS Admin: 10/15/24 11:33 Dose: Not Given Documented By: DMH Co-signed By: AA Admin: 10/15/24 09:14 Dose: Not Given Documented By: DMH Co-signed By: GMW Admin: 10/14/24 20:39 Dose: Not Given Documented By: Admin: 10/14/24 16:50 Dose: Not Given Documented By: EW Lactobacillus Acidophilus (Advanced Probiotic 625 Mg Capsule) 1,250 mg PO DAILY [place] Stop: 11/09/24 08:59 Last Admin: 11/01/24 07:54 Dose: 1,250 mg Documented By: Admin: 10/31/24 08:36 Dose: 1,250 mg Documented By: Admin: 10/30/24 09:02 Dose: 1,250 mg Documented By: Admin: 10/29/24 10:30 Dose: 1,250 mg Documented By: Admin: 10/28/24 08:46 Dose: 1,250 mg Documented By: Admin: 10/27/24 09:28 Dose: 1,250 mg Documented By: cak Admin: 10/26/24 08:09 Dose: 1,250 mg Documented By: Admin: 10/25/24 07:38 Dose: 1,250 mg Documented By: Admin: 10/24/24 07:29 Dose: 1,250 mg Documented By: Admin: 10/23/24 09:41 Dose: 1,250 mg Documented By: Admin: 10/22/24 09:14 Dose: 1,250 mg Documented By: wnt Admin: 10/21/24 07:34 Dose: 1,250 mg Documented By: Admin: 10/20/24 07:53 Dose: 1,250 mg Documented By: Admin: 10/19/24 08:13 Dose: 1,250 mg Documented By: Admin: 10/18/24 08:12 Dose: 1,250 mg Documented By: Admin: 10/17/24 08:57 Dose: 1,250 mg Documented By: Admin: 10/16/24 12:23 Dose: Not Given Documented By: Admin: 10/15/24 09:43 Dose: 1,250 mg Documented By: Admin: 10/14/24 12:55 Dose: 1,250 mg Documented By: Admin: 10/13/24 08:44 Dose: 1,250 mg Documented By: Admin: 10/12/24 09:02 Dose: 1,250 mg Documented By: Admin: 10/11/24 09:06 Dose: 1,250 mg Documented By: rhonda Admin: 10/10/24 08:52 Dose: 1,250 mg Documented By: rhonda Levofloxacin (Levofloxacin 500 Mg Tab) 500 mg PO [facility]; Protocol Stop: 11/07/24 08:59 Last Admin: 10/14/24 12:57 Dose: 500 mg Documented By: Admin: 10/13/24 08:44 Dose: 500 mg Documented By: Admin: 10/12/24 09:02 Dose: 500 mg Documented By: Admin: 10/11/24 09:06 Dose: 500 mg Documented By: baljitk Admin: 10/10/24 08:52 Dose: 500 mg Documented By: baljitk Admin: 10/09/24 09:54 Dose: 500 mg Documented By: Admin: 10/08/24 08:36 Dose: 500 mg Documented By: HUNTER Lidocaine (Lidocaine 5% 1 Patch) 1 patch TD QAM [place] Stop: 11/07/24 08:59 Last Admin: 11/01/24 07:53 Dose: 1 patch Documented By: RRValarie Admin: 10/31/24 08:37 Dose: 1 patch Documented By: RRValarie Admin: 10/30/24 09:03 Dose: 1 patch Documented By: Admin: 10/29/24 10:25 Dose: 1 patch Documented By: Admin: 10/28/24 07:37 Dose: 1 patch Documented By: Admin: 10/27/24 09:27 Dose: 1 patch Documented By: juliana Admin: 10/26/24 10:00 Dose: Not Given Documented By: Admin: 10/25/24 07:39 Dose: 1 patch Documented By: JRIlya Admin: 10/24/24 07:29 Dose: 1 patch Documented By: Admin: 10/23/24 09:41 Dose: 1 patch Documented By: Admin: 10/22/24 09:19 Dose: 1 patch Documented By: beny Admin: 10/21/24 07:35 Dose: 1 patch Documented By: Admin: 10/20/24 08:00 Dose: 1 patch Documented By: Admin: 10/19/24 08:13 Dose: Not Given Documented By: Admin: 10/18/24 08:12 Dose: Not Given Documented By: Admin: 10/17/24 09:00 Dose: Not Given Documented By: Admin: 10/16/24 17:08 Dose: Not Given Documented By: Admin: 10/15/24 10:23 Dose: Not Given Documented By: [email or web address] Admin: 10/14/24 12:12 Dose: Not Given Documented By: Admin: 10/13/24 08:46 Dose: Not Given Documented By: Admin: 10/12/24 09:04 Dose: 1 patch Documented By: Admin: 10/11/24 09:26 Dose: Not Given Documented By: rhonda Admin: 10/10/24 08:53 Dose: 1 patch Documented By: rhonda Admin: 10/09/24 12:52 Dose: 1 patch Documented By: Admin: 10/08/24 08:36 Dose: 1 patch Documented By: HUNTER Melatonin (Melatonin 3 Mg Tab) 3 mg PO HS PRN PRN Reason: Insomnia Stop: 11/07/24 03:07 Last Admin: 10/28/24 19:40 Dose: 3 mg Documented By: Admin: 10/27/24 20:09 Dose: 3 mg Documented By: Admin: 10/26/24 21:15 Dose: 3 mg Documented By: Admin: 10/25/24 22:00 Dose: 3 mg Documented By: Admin: 10/24/24 21:17 Dose: 3 mg Documented By: Admin: 10/23/24 19:41 Dose: 3 mg Documented By: Admin: 10/22/24 21:25 Dose: 3 mg Documented By: Admin: 10/20/24 21:39 Dose: 3 mg Documented By: Admin: 10/19/24 21:58 Dose: 3 mg Documented By: Admin: 10/18/24 21:46 Dose: 3 mg Documented By: snc Admin: 10/17/24 21:48 Dose: 3 mg Documented By: kerry Admin: 10/16/24 22:47 Dose: 3 mg Documented By: MARILOU Mirtazapine (Mirtazapine Tab 15 Mg Tab) 7.5 mg PO HS [place] Stop: 11/25/24 20:59 Last Admin: 10/31/24 21:04 Dose: 7.5 mg Documented By: Admin: 10/30/24 21:02 Dose: 7.5 mg Documented By: je Admin: 10/29/24 20:54 Dose: 7.5 mg Documented By: je Admin: 10/28/24 19:41 Dose: 7.5 mg Documented By: Admin: 10/27/24 20:11 Dose: 7.5 mg Documented By: Admin: 10/26/24 21:09 Dose: 7.5 mg Documented By: RES Miscellaneous (Remove Lidoderm Patch) 1 each N/A DAILY@2100 [facility] Stop: 11/07/24 20:59 Last Admin: 10/31/24 21:05 Dose: 1 each Documented By: Admin: 10/30/24 20:59 Dose: 1 each Documented By: je Admin: 10/29/24 20:58 Dose: 1 each Documented By: [email or web address] Admin: 10/28/24 19:41 Dose: 1 each Documented By: Admin: 10/27/24 20:11 Dose: 1 each Documented By: Admin: 10/26/24 21:10 Dose: Not Given Documented By: Admin: 10/25/24 21:56 Dose: 1 each Documented By: Admin: 10/24/24 21:17 Dose: 1 each Documented By: Admin: 10/23/24 19:44 Dose: 1 each Documented By: Admin: 10/22/24 21:27 Dose: 1 each Documented By: Admin: 10/21/24 22:01 Dose: Not Given Documented By: je Admin: 10/20/24 21:46 Dose: 1 each Documented By: Admin: 10/19/24 21:58 Dose: 1 each Documented By: Admin: 10/18/24 22:29 Dose: Not Given Documented By: snc Admin: 10/17/24 21:07 Dose: Not Given Documented By: Admin: 10/16/24 20:39 Dose: 1 each Documented By: Admin: 10/15/24 21:19 Dose: Not Given Documented By: ksy Admin: 10/14/24 20:39 Dose: Not Given Documented By: Admin: 10/13/24 20:17 Dose: Not Given Documented By: Admin: 10/12/24 20:27 Dose: Not Given Documented By: Admin: 10/11/24 21:34 Dose: 1 each Documented By: Admin: 10/10/24 21:08 Dose: 1 each Documented By: Admin: 10/09/24 20:22 Dose: 1 each Documented By: Admin: 10/08/24 20:40 Dose: 1 each Documented By: MARILEE Oxycodone HCl (Oxycodone Hcl 10 Mg Tabcr (Oxycontin)) 10 mg PO Q12 [place] Stop: 11/14/24 08:59 Last Admin: 11/01/24 07:55 Dose: 10 mg Documented By: Admin: 10/31/24 21:05 Dose: 10 mg Documented By: Admin: 10/31/24 08:37 Dose: 10 mg Documented By: TERRIE Oxycodone HCl (Oxycodone Hcl Ir 5 Mg Tab (Immediate Release)) 5 mg PO Q4 PRN PRN Reason: Severe Pain (Scale 7, 8, 9,10) Stop: 11/05/24 04:14 Last Admin: 11/01/24 11:50 Dose: 5 mg Documented By: Admin: 10/31/24 12:09 Dose: 5 mg Documented By: TERRIE Polyethylene Glycol (Polyethylene (Miralax) 17 Gm Pack) 17 gm PO QAM [place] Stop: 11/19/24 08:59 Last Admin: 11/01/24 07:55 Dose: 17 gm Documented By: Admin: 10/31/24 08:42 Dose: 17 gm Documented By: Admin: 10/30/24 09:01 Dose: 17 gm Documented By: Admin: 10/29/24 10:25 Dose: 17 gm Documented By: Admin: 10/28/24 08:46 Dose: 17 gm Documented By: Admin: 10/27/24 12:24 Dose: Not Given Documented By: Admin: 10/26/24 08:03 Dose: Not Given Documented By: Admin: 10/25/24 07:46 Dose: Not Given Documented By: Admin: 10/24/24 07:30 Dose: 17 gm Documented By: Admin: 10/23/24 09:41 Dose: 17 gm Documented By: Admin: 10/22/24 09:23 Dose: 17 gm Documented By: beny Admin: 10/21/24 07:35 Dose: Not Given Documented By: Admin: 10/20/24 07:52 Dose: 17 gm Documented By: FILI Potassium Chloride (Potassium Chloride Crtab 20 Meq Tabcr) 20 meq PO DAILY [place] Stop: 11/27/24 08:59 Last Admin: 11/01/24 07:55 Dose: 20 meq Documented By: Admin: 10/31/24 08:36 Dose: 20 meq Documented By: Admin: 10/30/24 09:01 Dose: 20 meq Documented By: Admin: 10/29/24 10:30 Dose: 20 meq Documented By: Admin: 10/28/24 08:46 Dose: 20 meq Documented By: BECCA Pregabalin (Pregabalin 25 Mg Cap) 25 mg PO TID [place] Stop: 11/30/24 08:59 Last Admin: 11/01/24 13:25 Dose: 25 mg Documented By: Admin: 11/01/24 07:55 Dose: 25 mg Documented By: Admin: 10/31/24 21:04 Dose: 25 mg Documented By: Admin: 10/31/24 13:32 Dose: 25 mg Documented By: Admin: 10/31/24 08:36 Dose: 25 mg Documented By: TERRIE Senna/Docusate Sodium (Docusate Sodium/Senna 50/8.6mg Tab) 1 tab PO BID [place] Stop: 11/07/24 08:59 Last Admin: 11/01/24 07:54 Dose: 1 tab Documented By: Admin: 10/31/24 21:04 Dose: 1 tab Documented By: Admin: 10/31/24 08:37 Dose: 1 tab Documented By: Admin: 10/30/24 20:58 Dose: Not Given Documented By: je Admin: 10/30/24 09:01 Dose: 1 tab Documented By: Admin: 10/29/24 20:57 Dose: Not Given Documented By: je Admin: 10/29/24 10:30 Dose: 1 tab Documented By: Admin: 10/28/24 19:40 Dose: 1 tab Documented By: Admin: 10/28/24 08:46 Dose: 1 tab Documented By: Admin: 10/27/24 20:10 Dose: Not Given Documented By: Admin: 10/27/24 12:24 Dose: Not Given Documented By: Admin: 10/26/24 21:08 Dose: Not Given Documented By: Admin: 10/26/24 08:02 Dose: Not Given Documented By: Admin: 10/25/24 22:00 Dose: 1 tab Documented By: Admin: 10/25/24 07:38 Dose: 1 tab Documented By: Admin: 10/24/24 21:17 Dose: 1 tab Documented By: Admin: 10/24/24 07:29 Dose: 1 tab Documented By: Admin: 10/23/24 19:40 Dose: 1 tab Documented By: Admin: 10/23/24 09:40 Dose: 1 tab Documented By: Admin: 10/22/24 21:25 Dose: 1 tab Documented By: Admin: 10/22/24 09:27 Dose: Not Given Documented By: beny Admin: 10/21/24 20:37 Dose: 1 tab Documented By: je Admin: 10/21/24 07:44 Dose: 1 tab Documented By: Admin: 10/20/24 21:40 Dose: 1 tab Documented By: Admin: 10/20/24 07:52 Dose: 1 tab Documented By: Admin: 10/19/24 21:58 Dose: 1 tab Documented By: Admin: 10/19/24 08:14 Dose: 1 tab Documented By: Admin: 10/18/24 21:42 Dose: Not Given Documented By: snc Admin: 10/18/24 08:12 Dose: Not Given Documented By: Admin: 10/17/24 21:51 Dose: Not Given Documented By: snc Admin: 10/17/24 09:00 Dose: Not Given Documented By: Admin: 10/16/24 20:38 Dose: 1 tab Documented By: Admin: 10/16/24 12:23 Dose: Not Given Documented By: Admin: 10/15/24 21:19 Dose: Not Given Documented By: ksy Admin: 10/15/24 09:42 Dose: Not Given Documented By: Admin: 10/14/24 20:19 Dose: Not Given Documented By: Admin: 10/14/24 09:59 Dose: Not Given Documented By: Admin: 10/13/24 20:17 Dose: 1 tab Documented By: Admin: 10/13/24 08:44 Dose: 1 tab Documented By: Admin: 10/12/24 20:21 Dose: 1 tab Documented By: Admin: 10/12/24 09:00 Dose: 1 tab Documented By: Admin: 10/11/24 21:39 Dose: Not Given Documented By: Admin: 10/11/24 07:57 Dose: Not Given Documented By: [email or web address] Admin: 10/10/24 20:36 Dose: Not Given Documented By: Admin: 10/10/24 08:52 Dose: 1 tab Documented By: rhonda Admin: 10/09/24 20:18 Dose: 1 tab Documented By: Admin: 10/09/24 10:11 Dose: 1 tab Documented By: Admin: 10/08/24 20:37 Dose: 1 tab Documented By: Admin: 10/08/24 08:43 Dose: 1 tab Documented By: HUNTER Voriconazole (Voriconazole 200 Mg Tablet) 200 mg PO Q12 [place] Stop: 11/07/24 08:59 Last Admin: 11/01/24 07:55 Dose: 200 mg Documented By: RRValarie Admin: 10/31/24 21:05 Dose: 200 mg Documented By: Admin: 10/31/24 08:36 Dose: 200 mg Documented By: Admin: 10/30/24 21:01 Dose: 200 mg Documented By: je Admin: 10/30/24 09:03 Dose: 200 mg Documented By: Admin: 10/29/24 20:54 Dose: 200 mg Documented By: je Admin: 10/29/24 10:30 Dose: 200 mg Documented By: Admin: 10/28/24 19:39 Dose: 200 mg Documented By: Admin: 10/28/24 08:46 Dose: 200 mg Documented By: Admin: 10/27/24 20:11 Dose: 200 mg Documented By: Admin: 10/27/24 09:28 Dose: 200 mg Documented By: [email or web address] Admin: 10/26/24 21:10 Dose: 200 mg Documented By: Admin: 10/26/24 08:10 Dose: 200 mg Documented By: Admin: 10/25/24 21:55 Dose: 200 mg Documented By: Admin: 10/25/24 07:38 Dose: 200 mg Documented By: Admin: 10/24/24 21:17 Dose: 200 mg Documented By: Admin: 10/24/24 07:30 Dose: 200 mg Documented By: Admin: 10/23/24 19:42 Dose: 200 mg Documented By: Admin: 10/23/24 09:41 Dose: 200 mg Documented By: Admin: 10/22/24 21:27 Dose: 200 mg Documented By: Admin: 10/22/24 09:15 Dose: 200 mg Documented By: [email or web address] Admin: 10/21/24 20:36 Dose: 200 mg Documented By: [email or web address] Admin: 10/21/24 07:35 Dose: 200 mg Documented By: Admin: 10/20/24 21:39 Dose: 200 mg Documented By: Admin: 10/20/24 07:59 Dose: 200 mg Documented By: Admin: 10/19/24 21:58 Dose: 200 mg Documented By: Admin: 10/19/24 08:12 Dose: 200 mg Documented By: Admin: 10/18/24 21:46 Dose: 200 mg Documented By: snc Admin: 10/18/24 08:13 Dose: 200 mg Documented By: Admin: 10/17/24 21:50 Dose: 200 mg Documented By: snc Admin: 10/17/24 08:56 Dose: 200 mg Documented By: Admin: 10/16/24 20:41 Dose: 200 mg Documented By: Admin: 10/16/24 09:12 Dose: 200 mg Documented By: Admin: 10/15/24 21:24 Dose: 200 mg Documented By: ksy Admin: 10/15/24 09:46 Dose: 200 mg Documented By: Admin: 10/14/24 20:19 Dose: 200 mg Documented By: Admin: 10/14/24 12:55 Dose: 200 mg Documented By: Admin: 10/13/24 20:17 Dose: 200 mg Documented By: Admin: 10/13/24 08:44 Dose: 200 mg Documented By: Admin: 10/12/24 20:21 Dose: 200 mg Documented By: Admin: 10/12/24 09:02 Dose: 200 mg Documented By: Admin: 10/11/24 21:38 Dose: 200 mg Documented By: Admin: 10/11/24 09:06 Dose: 200 mg Documented By: [email or web address] Admin: 10/10/24 21:07 Dose: 200 mg Documented By: Admin: 10/10/24 08:52 Dose: 200 mg Documented By: [email or web address] Admin: 10/09/24 20:22 Dose: 200 mg Documented By: Admin: 10/09/24 09:52 Dose: 200 mg Documented By: Admin: 10/08/24 20:38 Dose: 200 mg Documented By: Admin: 10/08/24 08:35 Dose: 200 mg Documented By: HUNTER
[2024-11-01] MEDS: CALCIUM GLUCONATE 1,000 MG/60 ML BAG IV STA (14:29)
[2024-11-02 06:41] LABS: Hematocrit (blood only) 27.6 % (37.0-47.0); Hemoglobin 8.7 g/dl (12.0-16.0); Mean Corpuscular Hemoglobin 31.6 pg (25.0-34.0); Mean Corpuscular Volume 100.4 fL (80.0-100.0); Platelet Count 204 K/uL (130-400); RDW Standard Deviation 61.4 fL (36.4-46.3); Red Blood Count 2.75 M/uL (4.20-5.40); White Blood Count 5.17 K/ul (4.8-10.8)
[2024-11-02 07:11] LABS: Anion Gap 6.0 (3-11); Blood Urea Nitrogen 7.0 mg/dl (6-23); Calcium 8.1 mg/dl (8.6-10.3); Carbon Dioxide 28.0 mmol/L (21-32); Chloride 106.0 mmol/L (98-107); Creatinine Clr Calc Pharmacy 121.8 ml/min; Glucose 86.0 mg/dl (70-99(Fasting)); Potassium 3.6 mmol/L (3.5-5.1); Sodium 140.0 mmol/L (136-145)
--- NOTE | 2024-11-02 13:08 | Hospitalist Progress Note ---
Date of Service November 02, 2024 Assessment & Plan (1) Severe back pain: Plan: 79 yo F with type 2 diabetes, dyslipidemia, paroxysmal SVT, hypertension, GERD, osteoarthritis of both knees, AML, generalized anxiety disorder, spinal stenosis of lumbar region, persistent insomnia who was recently in the hospital for lumbar spine compression fracture and discharged to rehab comes back with severe back pain. Severe back pain L1 and L3 compression fractures Staph epidermidis bacteremia Bilateral iliopsoas muscle fluid collections, likely infected -Came in from rehab -CT scan done in the ER shows same L1 L3 compression fractures -MRI Lumbar spine reviewed: + fluid collections, edema iliopsoas, bilateral, likely infected -s/p IR drainage of lumbar spine, per ortho no surgical intervention -used 1 as needed medication for pain in past 24 hours suggesting adequate pain control Plan- -ortho consult, appreciate recs -appreciate IR assistance with case -will need 6-8 weeks of IV vancomycin per ID, repeat MRI at end of treatment course -awaiting rehab placement, PICC line placed -increase oxycontin to 15mg bid based on 24 hour oxycodone need, continue pregablin 25 tid -continue oxycodone 5mg frequency prn to q4hrs Staph epidermidis bacteremia -Initial blood culture (10/07): Staph epidermidis 1 out of 2 bottles -Repeat blood cultures (10/10): Staph epidermidis 1 out of 2 bottles -ID service recommends removal of indwelling port, port removed on 10/14 -third set of blood cultures (10/15): NEGATIVE Lower abdominal Discomfort -resolved Hypokalemia -replenished AML undergoing chemotherapy History of pancytopenia -WBC 6.5. Hemoglobin 10.1. Platelets 340 -Currently undergoing monthly chemotherapy with decitabine/venetoclax -Last chemo was in August. -This month chemo was delayed because patient was in rehab -Has appointment with Dr. Gaines on 10/29/2024 per last admission -Continue suppressive antibiotics Levaquin, voriconazole and acyclovir -continue acyclovir Hypertension -Continue amlodipine Hyperlipidemia On statin Anxiety/depression -Psych service consulted -continue citalopram and mirtazapine Diabetes -Sliding scale for now Recent A port placement -port removed Attempted to call daughter Nadya ciro in chart for an update. Will attempt to call again later. I spent a total of 50 minutes in direct patient care, including [id number] t saturnino with the patient and/or family, reviewing medical records, ordering and reviewing diagnostic tests, and coordinating care with other healthcare providers. This time includes: history taking, physical examination, medical decision making, counseling, ECG interpretation, imaging interpretation, lab interpretation, orders, and education, excluding time spent in the performance of separately billed services. Admission and Anticipated Discharge Date Admission Date: October 08, 2024 Subjective Patient seen and examined at bedside. Patient states she is in pain this morning. Describes pain as stabbing, and not in groin anymore. It is in lower back which is where it was prior. Doing very well with movement. Review of Systems Review of Systems: CONSTITUTIONAL: weakness EYES: Patient denies any visual symptoms. EARS, NOSE, AND THROAT: No difficulties with hearing. No symptoms of rhinitis or sore throat. CARDIOVASCULAR: Patient denies chest pains, palpitations, orthopnea and paroxysmal nocturnal dyspnea. RESPIRATORY: No dyspnea on exertion, no wheezing or cough. GI: No nausea, vomiting, diarrhea, constipation, abdominal pain, hematochezia or melena. : No urinary hesitancy or dribbling. No nocturia or urinary frequency. No abnormal urethral discharge. MUSCULOSKELETAL: lower back pain NEUROLOGIC: No chronic headaches, no seizures. Patient denies numbness, tingling or weakness. PSYCHIATRIC: Patient denies problems with mood disturbance. No problems with anxiety. ENDOCRINE: No excessive urination or excessive thirst. DERMATOLOGIC: Patient denies any rashes or skin changes. Physical Exam Physical Exam: Gen: A&O 3 NAD HEENT: NCAT, EOMI, not icteric. External ears normal. No rhinorrhea. Moist mucous membranes. Neck: Supple, full range of motion, no observable masses, No meningeal sign. Lungs: No Respiratory distress. CV: RRR, no edema. Abdomen: Soft, nondistended, No rebound tenderness. MSK: tenderness in lower back to palpation improved from prior Skin: No rashes, petechiae, lesions. Normal color per patient. Neuro: Normal Gait, Grossly intact. Psych: Appropriate for situation. Results & Data Results & Data Vital Signs (Past 12 Hours) Vital Signs Temp Resp BP Pulse Ox O2 Del Method 11/02/24 07:51 36.6 C 16 106/63 94 Room Air Laboratory Results -personally reviewed, no leukocytosis, Hgb stable, creatinine at baseline Medications Administered Acetaminophen (Acetaminophen 500 Mg Tab) 1,000 mg PO Q8H [place] Stop: 11/22/24 09:59 Last Admin: 11/02/24 09:04 Dose: 1,000 mg Documented By: Admin: 11/02/24 02:12 Dose: 1,000 mg Documented By: Admin: 11/01/24 18:07 Dose: 1,000 mg Documented By: Admin: 11/01/24 10:09 Dose: 1,000 mg Documented By: Admin: 11/01/24 01:02 Dose: 1,000 mg Documented By: Admin: 10/31/24 17:07 Dose: 1,000 mg Documented By: Admin: 10/31/24 11:06 Dose: 1,000 mg Documented By: Admin: 10/31/24 01:37 Dose: 1,000 mg Documented By: jquenting Admin: 10/30/24 18:05 Dose: 1,000 mg Documented By: Admin: 10/30/24 09:01 Dose: 1,000 mg Documented By: Admin: 10/30/24 01:18 Dose: 1,000 mg Documented By: jjg Admin: 10/29/24 17:32 Dose: 1,000 mg Documented By: Admin: 10/29/24 10:30 Dose: 1,000 mg Documented By: Admin: 10/29/24 05:05 Dose: 1,000 mg Documented By: Admin: 10/29/24 02:16 Dose: Not Given Documented By: Admin: 10/28/24 17:57 Dose: 1,000 mg Documented By: Admin: 10/28/24 10:13 Dose: 1,000 mg Documented By: Admin: 10/28/24 01:23 Dose: 1,000 mg Documented By: Admin: 10/27/24 18:04 Dose: Not Given Documented By: cak Admin: 10/27/24 12:24 Dose: 1,000 mg Documented By: Admin: 10/27/24 01:07 Dose: 1,000 mg Documented By: Admin: 10/26/24 17:20 Dose: 1,000 mg Documented By: Admin: 10/26/24 10:05 Dose: 1,000 mg Documented By: Admin: 10/26/24 01:12 Dose: 1,000 mg Documented By: Admin: 10/25/24 17:16 Dose: 1,000 mg Documented By: Admin: 10/25/24 09:58 Dose: 1,000 mg Documented By: Admin: 10/25/24 01:00 Dose: 1,000 mg Documented By: Admin: 10/24/24 17:30 Dose: 1,000 mg Documented By: Admin: 10/24/24 10:00 Dose: 1,000 mg Documented By: Admin: 10/24/24 02:16 Dose: 1,000 mg Documented By: Admin: 10/23/24 18:00 Dose: 1,000 mg Documented By: Admin: 10/23/24 09:45 Dose: 1,000 mg Documented By: BRIANNA Acyclovir (Acyclovir 400 Mg Tab) 400 mg PO BID [place] Stop: 11/07/24 08:59 Last Admin: 11/02/24 09:05 Dose: 400 mg Documented By: Admin: 11/01/24 22:05 Dose: 400 mg Documented By: Admin: 11/01/24 07:54 Dose: 400 mg Documented By: RRValarie Admin: 10/31/24 21:05 Dose: 400 mg Documented By: Admin: 10/31/24 08:36 Dose: 400 mg Documented By: Admin: 10/30/24 21:00 Dose: 400 mg Documented By: je Admin: 10/30/24 09:02 Dose: 400 mg Documented By: Admin: 10/29/24 20:54 Dose: 400 mg Documented By: je Admin: 10/29/24 10:30 Dose: 400 mg Documented By: Admin: 10/28/24 19:40 Dose: 400 mg Documented By: Admin: 10/28/24 08:46 Dose: 400 mg Documented By: Admin: 10/27/24 20:10 Dose: 400 mg Documented By: Admin: 10/27/24 09:29 Dose: 400 mg Documented By: cak Admin: 10/26/24 21:08 Dose: 400 mg Documented By: Admin: 10/26/24 08:09 Dose: 400 mg Documented By: Admin: 10/25/24 21:56 Dose: 400 mg Documented By: Admin: 10/25/24 07:39 Dose: 400 mg Documented By: Admin: 10/24/24 21:16 Dose: 400 mg Documented By: Admin: 10/24/24 07:28 Dose: 400 mg Documented By: Admin: 10/23/24 19:42 Dose: 400 mg Documented By: Admin: 10/23/24 09:39 Dose: 400 mg Documented By: Admin: 10/22/24 21:26 Dose: 400 mg Documented By: Admin: 10/22/24 09:14 Dose: 400 mg Documented By: beny Admin: 10/21/24 20:37 Dose: 400 mg Documented By: je Admin: 10/21/24 07:47 Dose: 400 mg Documented By: Admin: 10/20/24 21:38 Dose: 400 mg Documented By: Admin: 10/20/24 07:53 Dose: 400 mg Documented By: Admin: 10/19/24 21:58 Dose: 400 mg Documented By: Admin: 10/19/24 08:12 Dose: 400 mg Documented By: Admin: 10/18/24 21:46 Dose: 400 mg Documented By: snc Admin: 10/18/24 08:11 Dose: 400 mg Documented By: Admin: 10/17/24 21:50 Dose: 400 mg Documented By: snc Admin: 10/17/24 08:57 Dose: 400 mg Documented By: Admin: 10/16/24 20:38 Dose: 400 mg Documented By: Admin: 10/16/24 09:17 Dose: 400 mg Documented By: Admin: 10/15/24 21:03 Dose: 400 mg Documented By: ksy Admin: 10/15/24 09:44 Dose: 400 mg Documented By: Admin: 10/14/24 20:19 Dose: 400 mg Documented By: Admin: 10/14/24 09:59 Dose: Not Given Documented By: Admin: 10/13/24 20:17 Dose: 400 mg Documented By: Admin: 10/13/24 08:45 Dose: 400 mg Documented By: Admin: 10/12/24 20:21 Dose: 400 mg Documented By: Admin: 10/12/24 09:03 Dose: 400 mg Documented By: Admin: 10/11/24 21:38 Dose: 400 mg Documented By: Admin: 10/11/24 09:05 Dose: 400 mg Documented By: rhonda Admin: 10/10/24 21:08 Dose: 400 mg Documented By: Admin: 10/10/24 08:52 Dose: 400 mg Documented By: rhonda Admin: 10/09/24 20:22 Dose: 400 mg Documented By: Admin: 10/09/24 09:50 Dose: 400 mg Documented By: Admin: 10/08/24 20:37 Dose: 400 mg Documented By: Admin: 10/08/24 08:34 Dose: 400 mg Documented By: HUNTER Amlodipine Besylate (Amlodipine Besylate 5 Mg Tab) [facility] [place] 11/07/24 08:59 Last Admin: 11/02/24 09:04 Dose: 5 mg Documented By: Admin: 11/01/24 07:54 Dose: 5 mg Documented By: RRValarie Admin: 10/31/24 08:37 Dose: 5 mg Documented By: Admin: 10/30/24 09:02 Dose: 5 mg Documented By: Admin: 10/29/24 10:31 Dose: 5 mg Documented By: Admin: 10/28/24 08:46 Dose: 5 mg Documented By: Admin: 10/27/24 09:28 Dose: 5 mg Documented By: cak Admin: 10/26/24 08:09 Dose: 5 mg Documented By: Admin: 10/25/24 07:38 Dose: 5 mg Documented By: Admin: 10/24/24 07:28 Dose: 5 mg Documented By: Admin: 10/23/24 09:39 Dose: 5 mg Documented By: Admin: 10/22/24 09:15 Dose: 5 mg Documented By: beny Admin: 10/21/24 07:33 Dose: 5 mg Documented By: Admin: 10/20/24 07:53 Dose: 5 mg Documented By: Admin: 10/19/24 08:12 Dose: 5 mg Documented By: Admin: 10/18/24 08:11 Dose: 5 mg Documented By: Admin: 10/17/24 08:57 Dose: 5 mg Documented By: Admin: 10/16/24 09:18 Dose: 5 mg Documented By: Admin: 10/15/24 09:43 Dose: 5 mg Documented By: Admin: 10/14/24 12:56 Dose: 5 mg Documented By: Admin: 10/13/24 08:45 Dose: 5 mg Documented By: Admin: 10/12/24 09:03 Dose: 5 mg Documented By: Admin: 10/11/24 09:05 Dose: 5 mg Documented By: rhonda Admin: 10/10/24 08:52 Dose: 5 mg Documented By: rhonda Admin: 10/09/24 09:51 Dose: 5 mg Documented By: Admin: 10/08/24 08:36 Dose: 5 mg Documented By: HUNTER Atorvastatin Calcium (Atorvastatin 20 Mg Tab) 20 mg PO HS [place] Stop: 11/07/24 20:59 Last Admin: 10/10/24 21:08 Dose: 20 mg Documented By: Admin: 10/09/24 20:22 Dose: 20 mg Documented By: Admin: 10/08/24 20:37 Dose: 20 mg Documented By: MARILEE Citalopram Hydrobromide (Citalopram 20 Mg Tab) 20 mg PO QAM [place] Stop: 11/26/24 08:59 Last Admin: 11/02/24 09:05 Dose: 20 mg Documented By: Admin: 11/01/24 07:54 Dose: 20 mg Documented By: Admin: 10/31/24 08:36 Dose: 20 mg Documented By: Admin: 10/30/24 09:02 Dose: 20 mg Documented By: Admin: 10/29/24 10:30 Dose: 20 mg Documented By: Admin: 10/28/24 08:46 Dose: 20 mg Documented By: Admin: 10/27/24 09:28 Dose: 20 mg Documented By: juliana Cyanocobalamin (Cyanocobalamin (B-12) 500 Mcg Tablet) 1,000 mcg PO QAM [place] Stop: 11/21/24 09:59 Last Admin: 11/02/24 09:04 Dose: 1,000 mcg Documented By: Admin: 11/01/24 07:54 Dose: 1,000 mcg Documented By: Admin: 10/31/24 08:36 Dose: 1,000 mcg Documented By: Admin: 10/30/24 09:02 Dose: 1,000 mcg Documented By: Admin: 10/29/24 10:31 Dose: 1,000 mcg Documented By: Admin: 10/28/24 08:47 Dose: 1,000 mcg Documented By: Admin: 10/27/24 09:28 Dose: 1,000 mcg Documented By: juliana Admin: 10/26/24 08:09 Dose: 1,000 mcg Documented By: Admin: 10/25/24 07:38 Dose: 1,000 mcg Documented By: K Admin: 10/24/24 07:29 Dose: 1,000 mcg Documented By: Admin: 10/23/24 09:40 Dose: 1,000 mcg Documented By: Admin: 10/22/24 11:48 Dose: Not Given Documented By: NISA Enoxaparin Sodium (Enoxaparin Inj 40 Mg/0.4 Ml Syr) 40 mg SQ Q24H [place] Stop: 11/07/24 08:59 Last Admin: 11/02/24 09:05 Dose: 40 mg Documented By: Admin: 11/01/24 07:55 Dose: 40 mg Documented By: Admin: 10/31/24 08:37 Dose: 40 mg Documented By: Admin: 10/30/24 09:02 Dose: 40 mg Documented By: Admin: 10/29/24 10:31 Dose: 40 mg Documented By: Admin: 10/28/24 08:46 Dose: 40 mg Documented By: Admin: 10/27/24 09:29 Dose: 40 mg Documented By: juliana Admin: 10/26/24 08:03 Dose: Not Given Documented By: Admin: 10/25/24 07:39 Dose: Not Given Documented By: Admin: 10/13/24 08:46 Dose: Not Given Documented By: Admin: 10/12/24 09:04 Dose: 40 mg Documented By: Admin: 10/11/24 09:06 Dose: 40 mg Documented By: baljitk Admin: 10/10/24 08:52 Dose: 40 mg Documented By: baljitk Admin: 10/09/24 09:51 Dose: 40 mg Documented By: Admin: 10/08/24 08:37 Dose: 40 mg Documented By: ISABEL Heparin Sodium (Beef Lung) (Heparin 10 Unit/Ml 5 Ml Flush) 5 ml FLUSH PRN PRN PRN Reason: Flush Stop: 11/23/24 17:29 Last Admin: 10/31/24 22:40 Dose: 5 ml Documented By: Admin: 10/31/24 05:37 Dose: 5 ml Documented By: Admin: 10/30/24 05:50 Dose: 5 ml Documented By: Admin: 10/29/24 05:20 Dose: 5 ml Documented By: Admin: 10/28/24 05:28 Dose: 5 ml Documented By: Admin: 10/27/24 20:13 Dose: 5 ml Documented By: Admin: 10/27/24 02:19 Dose: 5 ml Documented By: Admin: 10/26/24 08:08 Dose: 5 ml Documented By: K Admin: 10/25/24 22:00 Dose: 5 ml Documented By: Admin: 10/24/24 18:55 Dose: 5 ml Documented By: LMC Heparin Sodium (Porcine) (Heparin 100 Unit/Ml 5ml Flush) 5 ml FLUSH PRN PRN PRN Reason: Flush Stop: 11/07/24 03:03 Last Admin: 10/23/24 19:43 Dose: 5 ml Documented By: Admin: 10/12/24 05:22 Dose: 5 ml Documented By: Admin: 10/09/24 10:11 Dose: 5 ml Documented By: ARTEMIO Vancomycin HCl 750 mg/ Sodium (Chloride) 265 mls @ 200 mls/hr IV Q8H [place] Stop: 12/03/24 23:59 Last Infusion: 11/02/24 06:38 Dose: Infused Documented By: Admin: 11/02/24 05:01 Dose: 200 mls/hr Documented By: Infusion: 11/01/24 23:44 Dose: Infused Documented By: Admin: 11/01/24 22:18 Dose: 200 mls/hr Documented By: Infusion: 11/01/24 15:18 Dose: Infused Documented By: Admin: 11/01/24 13:25 Dose: 200 mls/hr Documented By: Infusion: 11/01/24 07:52 Dose: Infused Documented By: Admin: 11/01/24 06:07 Dose: 200 mls/hr Documented By: Infusion: 10/31/24 22:31 Dose: Infused Documented By: Admin: 10/31/24 21:11 Dose: 200 mls/hr Documented By: Infusion: 10/31/24 16:04 Dose: Infused Documented By: Admin: 10/31/24 14:40 Dose: 200 mls/hr Documented By: Infusion: 10/31/24 07:30 Dose: Infused Documented By: Admin: 10/31/24 05:37 Dose: 200 mls/hr Documented By: Infusion: 10/30/24 22:53 Dose: Infused Documented By: Admin: 10/30/24 21:06 Dose: 200 mls/hr Documented By: jquenting Infusion: 10/30/24 16:06 Dose: Infused Documented By: Admin: 10/30/24 14:31 Dose: 200 mls/hr Documented By: Infusion: 10/30/24 07:22 Dose: Infused Documented By: Admin: 10/30/24 05:52 Dose: 200 mls/hr Documented By: jjg Infusion: 10/29/24 22:37 Dose: Infused Documented By: jquenting Admin: 10/29/24 21:00 Dose: 200 mls/hr Documented By: jjg Infusion: 10/29/24 16:06 Dose: Infused Documented By: cak Admin: 10/29/24 14:36 Dose: 200 mls/hr Documented By: Infusion: 10/29/24 06:47 Dose: Infused Documented By: Admin: 10/29/24 05:06 Dose: 200 mls/hr Documented By: Infusion: 10/29/24 00:05 Dose: Infused Documented By: Admin: 10/28/24 22:45 Dose: 200 mls/hr Documented By: Infusion: 10/28/24 15:47 Dose: Infused Documented By: Admin: 10/28/24 14:27 Dose: 200 mls/hr Documented By: Infusion: 10/28/24 07:07 Dose: Infused Documented By: Admin: 10/28/24 05:28 Dose: 200 mls/hr Documented By: Infusion: 10/28/24 00:10 Dose: Infused Documented By: Admin: 10/27/24 22:50 Dose: 200 mls/hr Documented By: Infusion: 10/27/24 16:18 Dose: Infused Documented By: Admin: 10/27/24 14:17 Dose: 200 mls/hr Documented By: ADB Insulin Aspart (Insulin Aspart Per Unit Charge) 0 units SC ACHS [place] Stop: 11/13/24 05:59 Last Admin: 11/02/24 11:33 Dose: Not Given Documented By: Admin: 11/02/24 07:55 Dose: Not Given Documented By: Admin: 11/01/24 23:57 Dose: Not Given Documented By: YUMIKO Co-signed By: MARILOU Admin: 11/01/24 16:53 Dose: Not Given Documented By: Admin: 11/01/24 11:47 Dose: Not Given Documented By: Admin: 11/01/24 07:52 Dose: Not Given Documented By: Admin: 11/01/24 00:06 Dose: Not Given Documented By: EM Co-signed By: ESTRELLITA Admin: 10/31/24 16:59 Dose: Not Given Documented By: Admin: 10/31/24 12:07 Dose: Not Given Documented By: Admin: 10/31/24 09:23 Dose: Not Given Documented By: Admin: 10/30/24 21:00 Dose: Not Given Documented By: je Co-signed By: JULIEN Admin: 10/30/24 17:02 Dose: Not Given Documented By: Admin: 10/30/24 12:09 Dose: Not Given Documented By: Admin: 10/30/24 07:43 Dose: Not Given Documented By: Admin: 10/29/24 20:55 Dose: Not Given Documented By: je Co-signed By: JULIEN Admin: 10/29/24 16:58 Dose: Not Given Documented By: Admin: 10/29/24 11:27 Dose: Not Given Documented By: Admin: 10/29/24 09:01 Dose: Not Given Documented By: Admin: 10/28/24 20:37 Dose: Not Given Documented By: Admin: 10/28/24 16:37 Dose: Not Given Documented By: Admin: 10/28/24 12:04 Dose: Not Given Documented By: Admin: 10/28/24 07:55 Dose: Not Given Documented By: Admin: 10/27/24 20:16 Dose: Not Given Documented By: Admin: 10/27/24 16:47 Dose: Not Given Documented By: [email or web address] Co-signed By: ADB Admin: 10/27/24 12:31 Dose: Not Given Documented By: ADB Co-signed By: cak Admin: 10/27/24 09:36 Dose: Not Given Documented By: cak Co-signed By: ADB Admin: 10/26/24 21:00 Dose: Not Given Documented By: Admin: 10/26/24 17:00 Dose: Not Given Documented By: K Admin: 10/26/24 11:58 Dose: Not Given Documented By: Admin: 10/26/24 07:37 Dose: Not Given Documented By: Admin: 10/25/24 21:03 Dose: Not Given Documented By: Admin: 10/25/24 16:49 Dose: Not Given Documented By: Admin: 10/25/24 11:59 Dose: Not Given Documented By: Admin: 10/25/24 08:31 Dose: Not Given Documented By: Admin: 10/24/24 20:58 Dose: Not Given Documented By: Admin: 10/24/24 17:31 Dose: Not Given Documented By: LMC Co-signed By: KS Admin: 10/24/24 12:26 Dose: Not Given Documented By: LMC Co-signed By: KS Admin: 10/24/24 07:33 Dose: Not Given Documented By: LMC Co-signed By: MRE Admin: 10/23/24 20:29 Dose: Not Given Documented By: Admin: 10/23/24 16:37 Dose: Not Given Documented By: LMC Co-signed By: MRE Admin: 10/23/24 11:42 Dose: Not Given Documented By: LMC Co-signed By: ASIF Admin: 10/23/24 08:27 Dose: Not Given Documented By: LMC Co-signed By: MPS Admin: 10/22/24 21:19 Dose: Not Given Documented By: HKY Co-signed By: MLM Admin: 10/22/24 17:22 Dose: Not Given Documented By: Admin: 10/22/24 11:36 Dose: Not Given Documented By: NISA Co-signed By: wnt Admin: 10/22/24 09:12 Dose: Not Given Documented By: wnt Co-signed By: KER Admin: 10/21/24 20:38 Dose: Not Given Documented By: je Co-signed By: HLJ Admin: 10/21/24 16:44 Dose: Not Given Documented By: Admin: 10/21/24 11:36 Dose: Not Given Documented By: Admin: 10/21/24 07:32 Dose: Not Given Documented By: Admin: 10/20/24 20:41 Dose: Not Given Documented By: Admin: 10/20/24 16:47 Dose: Not Given Documented By: Admin: 10/20/24 11:42 Dose: Not Given Documented By: Admin: 10/20/24 07:46 Dose: Not Given Documented By: Admin: 10/19/24 21:15 Dose: Not Given Documented By: Admin: 10/19/24 17:23 Dose: Not Given Documented By: LMC Co-signed By: AA Admin: 10/19/24 12:32 Dose: Not Given Documented By: LMC Co-signed By: AA Admin: 10/19/24 07:41 Dose: Not Given Documented By: LMC Co-signed By: AAH Admin: 10/18/24 21:15 Dose: Not Given Documented By: snc Co-signed By: ANS Admin: 10/18/24 17:04 Dose: Not Given Documented By: LMC Co-signed By: AAH Admin: 10/18/24 11:58 Dose: Not Given Documented By: LMC Co-signed By: CSE Admin: 10/18/24 08:18 Dose: Not Given Documented By: LMC Co-signed By: VGS Admin: 10/17/24 21:36 Dose: Not Given Documented By: Admin: 10/17/24 17:45 Dose: Not Given Documented By: Admin: 10/17/24 12:08 Dose: Not Given Documented By: Admin: 10/17/24 08:58 Dose: Not Given Documented By: Admin: 10/16/24 20:46 Dose: Not Given Documented By: Admin: 10/16/24 17:06 Dose: Not Given Documented By: Admin: 10/16/24 12:00 Dose: Not Given Documented By: Admin: 10/16/24 09:14 Dose: Not Given Documented By: Admin: 10/15/24 21:06 Dose: Not Given Documented By: rodriguez Co-signed By: TERI Admin: 10/15/24 17:11 Dose: Not Given Documented By: DMPrasanth Co-signed By: BECCA Admin: 10/15/24 11:33 Dose: Not Given Documented By: DMH Co-signed By: AAPrasanth Admin: 10/15/24 09:14 Dose: Not Given Documented By: JOSEPHINE Co-signed By: PIERRE Admin: 10/14/24 20:39 Dose: Not Given Documented By: Admin: 10/14/24 16:50 Dose: Not Given Documented By: JACK Lactobacillus Acidophilus (Advanced Probiotic 625 Mg Capsule) 1,250 mg PO DAILY [place] Stop: 11/09/24 08:59 Last Admin: 11/02/24 09:04 Dose: 1,250 mg Documented By: Admin: 11/01/24 07:54 Dose: 1,250 mg Documented By: Admin: 10/31/24 08:36 Dose: 1,250 mg Documented By: Admin: 10/30/24 09:02 Dose: 1,250 mg Documented By: Admin: 10/29/24 10:30 Dose: 1,250 mg Documented By: Admin: 10/28/24 08:46 Dose: 1,250 mg Documented By: Admin: 10/27/24 09:28 Dose: 1,250 mg Documented By: cak Admin: 10/26/24 08:09 Dose: 1,250 mg Documented By: Admin: 10/25/24 07:38 Dose: 1,250 mg Documented By: Admin: 10/24/24 07:29 Dose: 1,250 mg Documented By: Admin: 10/23/24 09:41 Dose: 1,250 mg Documented By: Admin: 10/22/24 09:14 Dose: 1,250 mg Documented By: wnt Admin: 10/21/24 07:34 Dose: 1,250 mg Documented By: Admin: 10/20/24 07:53 Dose: 1,250 mg Documented By: Admin: 10/19/24 08:13 Dose: 1,250 mg Documented By: Admin: 10/18/24 08:12 Dose: 1,250 mg Documented By: Admin: 10/17/24 08:57 Dose: 1,250 mg Documented By: Admin: 10/16/24 12:23 Dose: Not Given Documented By: Admin: 10/15/24 09:43 Dose: 1,250 mg Documented By: Admin: 10/14/24 12:55 Dose: 1,250 mg Documented By: Admin: 10/13/24 08:44 Dose: 1,250 mg Documented By: Admin: 10/12/24 09:02 Dose: 1,250 mg Documented By: Admin: 10/11/24 09:06 Dose: 1,250 mg Documented By: rhonda Admin: 10/10/24 08:52 Dose: 1,250 mg Documented By: rhonda Levofloxacin (Levofloxacin 500 Mg Tab) 500 mg PO QA [place]; Protocol Stop: 11/07/24 08:59 Last Admin: 10/14/24 12:57 Dose: 500 mg Documented By: Admin: 10/13/24 08:44 Dose: 500 mg Documented By: Admin: 10/12/24 09:02 Dose: 500 mg Documented By: Admin: 10/11/24 09:06 Dose: 500 mg Documented By: rhonda Admin: 10/10/24 08:52 Dose: 500 mg Documented By: rhonda Admin: 10/09/24 09:54 Dose: 500 mg Documented By: Admin: 10/08/24 08:36 Dose: 500 mg Documented By: HUNTER Lidocaine (Lidocaine 5% 1 Patch) 1 patch TD QAM [place] Stop: 11/07/24 08:59 Last Admin: 11/02/24 09:05 Dose: 1 patch Documented By: Admin: 11/01/24 07:53 Dose: 1 patch Documented By: Admin: 10/31/24 08:37 Dose: 1 patch Documented By: [email or web address] Admin: 10/30/24 09:03 Dose: 1 patch Documented By: Admin: 10/29/24 10:25 Dose: 1 patch Documented By: Admin: 10/28/24 07:37 Dose: 1 patch Documented By: Admin: 10/27/24 09:27 Dose: 1 patch Documented By: [email or web address] Admin: 10/26/24 10:00 Dose: Not Given Documented By: Admin: 10/25/24 07:39 Dose: 1 patch Documented By: Admin: 10/24/24 07:29 Dose: 1 patch Documented By: Admin: 10/23/24 09:41 Dose: 1 patch Documented By: Admin: 10/22/24 09:19 Dose: 1 patch Documented By: [email or web address] Admin: 10/21/24 07:35 Dose: 1 patch Documented By: Admin: 10/20/24 08:00 Dose: 1 patch Documented By: Admin: 10/19/24 08:13 Dose: Not Given Documented By: Admin: 10/18/24 08:12 Dose: Not Given Documented By: Admin: 10/17/24 09:00 Dose: Not Given Documented By: Admin: 10/16/24 17:08 Dose: Not Given Documented By: Admin: 10/15/24 10:23 Dose: Not Given Documented By: Admin: 10/14/24 12:12 Dose: Not Given Documented By: Admin: 10/13/24 08:46 Dose: Not Given Documented By: Admin: 10/12/24 09:04 Dose: 1 patch Documented By: Admin: 10/11/24 09:26 Dose: Not Given Documented By: [email or web address] Admin: 10/10/24 08:53 Dose: 1 patch Documented By: [email or web address] Admin: 10/09/24 12:52 Dose: 1 patch Documented By: [email or web address] Admin: 10/08/24 08:36 Dose: 1 patch Documented By: SLH Melatonin (Melatonin 3 Mg Tab) 3 mg PO HS PRN PRN Reason: Insomnia Stop: 11/07/24 03:07 Last Admin: 10/28/24 19:40 Dose: 3 mg Documented By: Admin: 10/27/24 20:09 Dose: 3 mg Documented By: Admin: 10/26/24 21:15 Dose: 3 mg Documented By: Admin: 10/25/24 22:00 Dose: 3 mg Documented By: Admin: 10/24/24 21:17 Dose: 3 mg Documented By: Admin: 10/23/24 19:41 Dose: 3 mg Documented By: Admin: 10/22/24 21:25 Dose: 3 mg Documented By: Admin: 10/20/24 21:39 Dose: 3 mg Documented By: Admin: 10/19/24 21:58 Dose: 3 mg Documented By: Admin: 10/18/24 21:46 Dose: 3 mg Documented By: snc Admin: 10/17/24 21:48 Dose: 3 mg Documented By: snc Admin: 10/16/24 22:47 Dose: 3 mg Documented By: MARILOU Mirtazapine (Mirtazapine Tab 15 Mg Tab) 7.5 mg PO HS [facility] Stop: 11/25/24 20:59 Last Admin: 11/01/24 22:06 Dose: 7.5 mg Documented By: Admin: 10/31/24 21:04 Dose: 7.5 mg Documented By: Admin: 10/30/24 21:02 Dose: 7.5 mg Documented By: je Admin: 10/29/24 20:54 Dose: 7.5 mg Documented By: je Admin: 10/28/24 19:41 Dose: 7.5 mg Documented By: Admin: 10/27/24 20:11 Dose: 7.5 mg Documented By: Admin: 10/26/24 21:09 Dose: 7.5 mg Documented By: NESTOR Miscellaneous (Remove Lidoderm Patch) 1 each N/A DAILY@2100 [facility] Stop: 11/07/24 20:59 Last Admin: 11/01/24 22:07 Dose: 1 each Documented By: Admin: 10/31/24 21:05 Dose: 1 each Documented By: Admin: 10/30/24 20:59 Dose: 1 each Documented By: je Admin: 10/29/24 20:58 Dose: 1 each Documented By: je Admin: 10/28/24 19:41 Dose: 1 each Documented By: Admin: 10/27/24 20:11 Dose: 1 each Documented By: Admin: 10/26/24 21:10 Dose: Not Given Documented By: Admin: 10/25/24 21:56 Dose: 1 each Documented By: Admin: 10/24/24 21:17 Dose: 1 each Documented By: Admin: 10/23/24 19:44 Dose: 1 each Documented By: Admin: 10/22/24 21:27 Dose: 1 each Documented By: Admin: 10/21/24 22:01 Dose: Not Given Documented By: diang Admin: 10/20/24 21:46 Dose: 1 each Documented By: Admin: 10/19/24 21:58 Dose: 1 each Documented By: Admin: 10/18/24 22:29 Dose: Not Given Documented By: snc Admin: 10/17/24 21:07 Dose: Not Given Documented By: Admin: 10/16/24 20:39 Dose: 1 each Documented By: Admin: 10/15/24 21:19 Dose: Not Given Documented By: [email or web address] Admin: 10/14/24 20:39 Dose: Not Given Documented By: Admin: 10/13/24 20:17 Dose: Not Given Documented By: Admin: 10/12/24 20:27 Dose: Not Given Documented By: Admin: 10/11/24 21:34 Dose: 1 each Documented By: Admin: 10/10/24 21:08 Dose: 1 each Documented By: Admin: 10/09/24 20:22 Dose: 1 each Documented By: Admin: 10/08/24 20:40 Dose: 1 each Documented By: MARILEE Oxycodone HCl (Oxycodone Hcl Ir 5 Mg Tab (Immediate Release)) 5 mg PO Q4 PRN PRN Reason: Severe Pain (Scale 7, 8, 9,10) Stop: 11/05/24 04:14 Last Admin: 11/02/24 04:55 Dose: 5 mg Documented By: Admin: 11/01/24 16:22 Dose: 5 mg Documented By: Admin: 11/01/24 11:50 Dose: 5 mg Documented By: RRValarie Admin: 10/31/24 12:09 Dose: 5 mg Documented By: TERRIE Oxycodone HCl (Oxycodone Hcl 15 Mg Tabcr (Oxycontin)) 15 mg PO Q12 [facility] Stop: 11/16/24 08:59 Last Admin: 11/02/24 09:05 Dose: 15 mg Documented By: BALJINDER Polyethylene Glycol (Polyethylene (Miralax) 17 Gm Pack) 17 gm PO QAM [facility] Stop: 11/19/24 08:59 Last Admin: 11/02/24 09:05 Dose: 17 gm Documented By: Admin: 11/01/24 07:55 Dose: 17 gm Documented By: Admin: 10/31/24 08:42 Dose: 17 gm Documented By: Admin: 10/30/24 09:01 Dose: 17 gm Documented By: Admin: 10/29/24 10:25 Dose: 17 gm Documented By: Admin: 10/28/24 08:46 Dose: 17 gm Documented By: Admin: 10/27/24 12:24 Dose: Not Given Documented By: Admin: 10/26/24 08:03 Dose: Not Given Documented By: Admin: 10/25/24 07:46 Dose: Not Given Documented By: Admin: 10/24/24 07:30 Dose: 17 gm Documented By: Admin: 10/23/24 09:41 Dose: 17 gm Documented By: Admin: 10/22/24 09:23 Dose: 17 gm Documented By: beny Admin: 10/21/24 07:35 Dose: Not Given Documented By: Admin: 10/20/24 07:52 Dose: 17 gm Documented By: FILI Potassium Chloride (Potassium Chloride Crtab 20 Meq Tabcr) 20 meq PO DAILY [place] Stop: 11/27/24 08:59 Last Admin: 11/02/24 09:04 Dose: 20 meq Documented By: Admin: 11/01/24 07:55 Dose: 20 meq Documented By: Admin: 10/31/24 08:36 Dose: 20 meq Documented By: Admin: 10/30/24 09:01 Dose: 20 meq Documented By: Admin: 10/29/24 10:30 Dose: 20 meq Documented By: Admin: 10/28/24 08:46 Dose: 20 meq Documented By: BECCA Pregabalin (Pregabalin 25 Mg Cap) 25 mg PO TID [place] Stop: 11/30/24 08:59 Last Admin: 11/02/24 09:05 Dose: 25 mg Documented By: Admin: 11/01/24 22:06 Dose: 25 mg Documented By: Admin: 11/01/24 13:25 Dose: 25 mg Documented By: Admin: 11/01/24 07:55 Dose: 25 mg Documented By: Admin: 10/31/24 21:04 Dose: 25 mg Documented By: Admin: 10/31/24 13:32 Dose: 25 mg Documented By: Admin: 10/31/24 08:36 Dose: 25 mg Documented By: TERRIE Senna/Docusate Sodium (Docusate Sodium/Senna 50/8.6mg Tab) 1 tab PO BID [place] Stop: 11/07/24 08:59 Last Admin: 11/02/24 09:05 Dose: 1 tab Documented By: Admin: 11/01/24 22:06 Dose: 1 tab Documented By: Admin: 11/01/24 07:54 Dose: 1 tab Documented By: Admin: 10/31/24 21:04 Dose: 1 tab Documented By: Admin: 10/31/24 08:37 Dose: 1 tab Documented By: Admin: 10/30/24 20:58 Dose: Not Given Documented By: je Admin: 10/30/24 09:01 Dose: 1 tab Documented By: Admin: 10/29/24 20:57 Dose: Not Given Documented By: je Admin: 10/29/24 10:30 Dose: 1 tab Documented By: Admin: 10/28/24 19:40 Dose: 1 tab Documented By: Admin: 10/28/24 08:46 Dose: 1 tab Documented By: Admin: 10/27/24 20:10 Dose: Not Given Documented By: Admin: 10/27/24 12:24 Dose: Not Given Documented By: Admin: 10/26/24 21:08 Dose: Not Given Documented By: Admin: 10/26/24 08:02 Dose: Not Given Documented By: Admin: 10/25/24 22:00 Dose: 1 tab Documented By: Admin: 10/25/24 07:38 Dose: 1 tab Documented By: Admin: 10/24/24 21:17 Dose: 1 tab Documented By: Admin: 10/24/24 07:29 Dose: 1 tab Documented By: Admin: 10/23/24 19:40 Dose: 1 tab Documented By: Admin: 10/23/24 09:40 Dose: 1 tab Documented By: Admin: 10/22/24 21:25 Dose: 1 tab Documented By: Admin: 10/22/24 09:27 Dose: Not Given Documented By: beny Admin: 10/21/24 20:37 Dose: 1 tab Documented By: je Admin: 10/21/24 07:44 Dose: 1 tab Documented By: Admin: 10/20/24 21:40 Dose: 1 tab Documented By: Admin: 10/20/24 07:52 Dose: 1 tab Documented By: Admin: 10/19/24 21:58 Dose: 1 tab Documented By: Admin: 10/19/24 08:14 Dose: 1 tab Documented By: Admin: 10/18/24 21:42 Dose: Not Given Documented By: snc Admin: 10/18/24 08:12 Dose: Not Given Documented By: Admin: 10/17/24 21:51 Dose: Not Given Documented By: snc Admin: 10/17/24 09:00 Dose: Not Given Documented By: Admin: 10/16/24 20:38 Dose: 1 tab Documented By: Admin: 10/16/24 12:23 Dose: Not Given Documented By: Admin: 10/15/24 21:19 Dose: Not Given Documented By: ksy Admin: 10/15/24 09:42 Dose: Not Given Documented By: Admin: 10/14/24 20:19 Dose: Not Given Documented By: Admin: 10/14/24 09:59 Dose: Not Given Documented By: Admin: 10/13/24 20:17 Dose: 1 tab Documented By: Admin: 10/13/24 08:44 Dose: 1 tab Documented By: Admin: 10/12/24 20:21 Dose: 1 tab Documented By: Admin: 10/12/24 09:00 Dose: 1 tab Documented By: Admin: 10/11/24 21:39 Dose: Not Given Documented By: Admin: 10/11/24 07:57 Dose: Not Given Documented By: [email or web address] Admin: 10/10/24 20:36 Dose: Not Given Documented By: Admin: 10/10/24 08:52 Dose: 1 tab Documented By: baljitk Admin: 10/09/24 20:18 Dose: 1 tab Documented By: Admin: 10/09/24 10:11 Dose: 1 tab Documented By: Admin: 10/08/24 20:37 Dose: 1 tab Documented By: Admin: 10/08/24 08:43 Dose: 1 tab Documented By: HUNTER Voriconazole (Voriconazole 200 Mg Tablet) 200 mg PO Q12 [place] Stop: 11/07/24 08:59 Last Admin: 11/02/24 09:04 Dose: 200 mg Documented By: Admin: 11/01/24 22:06 Dose: 200 mg Documented By: Admin: 11/01/24 07:55 Dose: 200 mg Documented By: Admin: 10/31/24 21:05 Dose: 200 mg Documented By: Admin: 10/31/24 08:36 Dose: 200 mg Documented By: Admin: 10/30/24 21:01 Dose: 200 mg Documented By: je Admin: 10/30/24 09:03 Dose: 200 mg Documented By: Admin: 10/29/24 20:54 Dose: 200 mg Documented By: je Admin: 10/29/24 10:30 Dose: 200 mg Documented By: Admin: 10/28/24 19:39 Dose: 200 mg Documented By: Admin: 10/28/24 08:46 Dose: 200 mg Documented By: Admin: 10/27/24 20:11 Dose: 200 mg Documented By: Admin: 10/27/24 09:28 Dose: 200 mg Documented By: cak Admin: 10/26/24 21:10 Dose: 200 mg Documented By: Admin: 10/26/24 08:10 Dose: 200 mg Documented By: Admin: 10/25/24 21:55 Dose: 200 mg Documented By: Admin: 10/25/24 07:38 Dose: 200 mg Documented By: Admin: 10/24/24 21:17 Dose: 200 mg Documented By: Admin: 10/24/24 07:30 Dose: 200 mg Documented By: Admin: 10/23/24 19:42 Dose: 200 mg Documented By: Admin: 10/23/24 09:41 Dose: 200 mg Documented By: Admin: 10/22/24 21:27 Dose: 200 mg Documented By: Admin: 10/22/24 09:15 Dose: 200 mg Documented By: beny Admin: 10/21/24 20:36 Dose: 200 mg Documented By: ej Admin: 10/21/24 07:35 Dose: 200 mg Documented By: Admin: 10/20/24 21:39 Dose: 200 mg Documented By: Admin: 10/20/24 07:59 Dose: 200 mg Documented By: Admin: 10/19/24 21:58 Dose: 200 mg Documented By: Admin: 10/19/24 08:12 Dose: 200 mg Documented By: Admin: 10/18/24 21:46 Dose: 200 mg Documented By: snc Admin: 10/18/24 08:13 Dose: 200 mg Documented By: Admin: 10/17/24 21:50 Dose: 200 mg Documented By: snc Admin: 10/17/24 08:56 Dose: 200 mg Documented By: Admin: 10/16/24 20:41 Dose: 200 mg Documented By: Admin: 10/16/24 09:12 Dose: 200 mg Documented By: Admin: 10/15/24 21:24 Dose: 200 mg Documented By: rodriguez Admin: 10/15/24 09:46 Dose: 200 mg Documented By: Admin: 10/14/24 20:19 Dose: 200 mg Documented By: Admin: 10/14/24 12:55 Dose: 200 mg Documented By: Admin: 10/13/24 20:17 Dose: 200 mg Documented By: Admin: 10/13/24 08:44 Dose: 200 mg Documented By: Admin: 10/12/24 20:21 Dose: 200 mg Documented By: Admin: 10/12/24 09:02 Dose: 200 mg Documented By: Admin: 10/11/24 21:38 Dose: 200 mg Documented By: Admin: 10/11/24 09:06 Dose: 200 mg Documented By: [email or web address] Admin: 10/10/24 21:07 Dose: 200 mg Documented By: Admin: 10/10/24 08:52 Dose: 200 mg Documented By: [email or web address] Admin: 10/09/24 20:22 Dose: 200 mg Documented By: Admin: 10/09/24 09:52 Dose: 200 mg Documented By: Admin: 10/08/24 20:38 Dose: 200 mg Documented By: Admin: 10/08/24 08:35 Dose: 200 mg Documented By: HUNTER
[2024-11-03 07:39] VITALS: RESP 16
--- NOTE | 2024-11-03 12:45 | Hospitalist Progress Note ---
Date of Service November 03, 2024 Assessment & Plan (1) Severe back pain: Plan: 79 yo F with type 2 diabetes, dyslipidemia, paroxysmal SVT, hypertension, GERD, osteoarthritis of both knees, AML, generalized anxiety disorder, spinal stenosis of lumbar region, persistent insomnia who was recently in the hospital for lumbar spine compression fracture and discharged to rehab comes back with severe back pain. Severe back pain L1 and L3 compression fractures Staph epidermidis bacteremia Bilateral iliopsoas muscle fluid collections, likely infected -Came in from rehab -CT scan done in the ER shows same L1 L3 compression fractures -MRI Lumbar spine reviewed: + fluid collections, edema iliopsoas, bilateral, likely infected -s/p IR drainage of lumbar spine, per ortho no surgical intervention -used 1 as needed medication for pain in past 24 hours suggesting adequate pain control Plan- -ortho consult, appreciate recs -appreciate IR assistance with case -will need 6-8 weeks of IV vancomycin per ID, repeat MRI at end of treatment course -awaiting rehab placement, PICC line placed -continue oxycontin to 15mg bid based on 24 hour oxycodone need, continue pregablin 25 tid -continue oxycodone 5mg frequency prn to q4hrs Staph epidermidis bacteremia -Initial blood culture (10/07): Staph epidermidis 1 out of 2 bottles -Repeat blood cultures (10/10): Staph epidermidis 1 out of 2 bottles -ID service recommends removal of indwelling port, port removed on 10/14 -third set of blood cultures (10/15): NEGATIVE Lower abdominal Discomfort -resolved Hypokalemia -replenished AML undergoing chemotherapy History of pancytopenia -WBC 6.5. Hemoglobin 10.1. Platelets 340 -Currently undergoing monthly chemotherapy with decitabine/venetoclax -Last chemo was in August. -This month chemo was delayed because patient was in rehab -Has appointment with Dr. Gaines on 10/29/2024 per last admission -Continue suppressive antibiotics Levaquin, voriconazole and acyclovir -continue acyclovir Hypertension -Continue amlodipine Hyperlipidemia On statin Anxiety/depression -Psych service consulted -continue citalopram and mirtazapine Diabetes -Sliding scale for now Recent A port placement -port removed I spent a total of 40 minutes in direct patient care, including [id number] time with the patient and/or family, reviewing medical records, ordering and reviewing diagnostic tests, and coordinating care with other healthcare providers. This time includes: history taking, physical examination, medical decision making, counseling, ECG interpretation, imaging interpretation, lab interpretation, orders, and education, excluding time spent in the performance of separately billed services. Admission and Anticipated Discharge Date Admission Date: October 08, 2024 Subjective Patient seen and examined at bedside. Patient doing well today, feels her pain is well controlled. Did not use any prn medications in past 24 hours. Review of Systems Review of Systems: CONSTITUTIONAL: weakness EYES: Patient denies any visual symptoms. EARS, NOSE, AND THROAT: No difficulties with hearing. No symptoms of rhinitis or sore throat. CARDIOVASCULAR: Patient denies chest pains, palpitations, orthopnea and paroxysmal nocturnal dyspnea. RESPIRATORY: No dyspnea on exertion, no wheezing or cough. GI: No nausea, vomiting, diarrhea, constipation, abdominal pain, hematochezia or melena. : No urinary hesitancy or dribbling. No nocturia or urinary frequency. No abnormal urethral discharge. MUSCULOSKELETAL: lower back pain NEUROLOGIC: No chronic headaches, no seizures. Patient denies numbness, tingling or weakness. PSYCHIATRIC: Patient denies problems with mood disturbance. No problems with anxiety. ENDOCRINE: No excessive urination or excessive thirst. DERMATOLOGIC: Patient denies any rashes or skin changes. Physical Exam Physical Exam: Gen: A&O 3 NAD HEENT: NCAT, EOMI, not icteric. External ears normal. No rhinorrhea. Moist mucous membranes. Neck: Supple, full range of motion, no observable masses, No meningeal sign. Lungs: No Respiratory distress. CV: RRR, no edema. Abdomen: Soft, nondistended, No rebound tenderness. MSK: tenderness in lower back to palpation improved from prior Skin: No rashes, petechiae, lesions. Normal color per patient. Neuro: Normal Gait, Grossly intact. Psych: Appropriate for situation. Results & Data Results & Data Vital Signs (Past 12 Hours) Vital Signs Temp Pulse Resp BP Pulse Ox O2 Del Method 11/03/24 07:35 36.7 C 80 16 111/63 90 Room Air Medications Administered Acetaminophen (Acetaminophen 500 Mg Tab) 1,000 mg PO Q8H [place] Stop: 11/22/24 09:59 Last Admin: 11/03/24 07:50 Dose: 1,000 mg Documented By: Admin: 11/03/24 02:15 Dose: 1,000 mg Documented By: Admin: 11/02/24 17:25 Dose: 1,000 mg Documented By: Admin: 11/02/24 09:04 Dose: 1,000 mg Documented By: Admin: 11/02/24 02:12 Dose: 1,000 mg Documented By: Admin: 11/01/24 18:07 Dose: 1,000 mg Documented By: Admin: 11/01/24 10:09 Dose: 1,000 mg Documented By: Admin: 11/01/24 01:02 Dose: 1,000 mg Documented By: Admin: 10/31/24 17:07 Dose: 1,000 mg Documented By: Admin: 10/31/24 11:06 Dose: 1,000 mg Documented By: Admin: 10/31/24 01:37 Dose: 1,000 mg Documented By: jjg Admin: 10/30/24 18:05 Dose: 1,000 mg Documented By: Admin: 10/30/24 09:01 Dose: 1,000 mg Documented By: Admin: 10/30/24 01:18 Dose: 1,000 mg Documented By: jjg Admin: 10/29/24 17:32 Dose: 1,000 mg Documented By: Admin: 10/29/24 10:30 Dose: 1,000 mg Documented By: Admin: 10/29/24 05:05 Dose: 1,000 mg Documented By: Admin: 10/29/24 02:16 Dose: Not Given Documented By: Admin: 10/28/24 17:57 Dose: 1,000 mg Documented By: Admin: 10/28/24 10:13 Dose: 1,000 mg Documented By: Admin: 10/28/24 01:23 Dose: 1,000 mg Documented By: Admin: 10/27/24 18:04 Dose: Not Given Documented By: cak Admin: 10/27/24 12:24 Dose: 1,000 mg Documented By: Admin: 10/27/24 01:07 Dose: 1,000 mg Documented By: Admin: 10/26/24 17:20 Dose: 1,000 mg Documented By: Admin: 10/26/24 10:05 Dose: 1,000 mg Documented By: Admin: 10/26/24 01:12 Dose: 1,000 mg Documented By: Admin: 10/25/24 17:16 Dose: 1,000 mg Documented By: Admin: 10/25/24 09:58 Dose: 1,000 mg Documented By: Admin: 10/25/24 01:00 Dose: 1,000 mg Documented By: Admin: 10/24/24 17:30 Dose: 1,000 mg Documented By: Admin: 10/24/24 10:00 Dose: 1,000 mg Documented By: Admin: 10/24/24 02:16 Dose: 1,000 mg Documented By: Admin: 10/23/24 18:00 Dose: 1,000 mg Documented By: Admin: 10/23/24 09:45 Dose: 1,000 mg Documented By: BRIANNA Acyclovir (Acyclovir 400 Mg Tab) 400 mg PO BID [place] Stop: 11/07/24 08:59 Last Admin: 11/03/24 07:53 Dose: 400 mg Documented By: Admin: 11/02/24 21:48 Dose: 400 mg Documented By: Admin: 11/02/24 09:05 Dose: 400 mg Documented By: Admin: 11/01/24 22:05 Dose: 400 mg Documented By: Admin: 11/01/24 07:54 Dose: 400 mg Documented By: Admin: 10/31/24 21:05 Dose: 400 mg Documented By: Admin: 10/31/24 08:36 Dose: 400 mg Documented By: Admin: 10/30/24 21:00 Dose: 400 mg Documented By: je Admin: 10/30/24 09:02 Dose: 400 mg Documented By: Admin: 10/29/24 20:54 Dose: 400 mg Documented By: je Admin: 10/29/24 10:30 Dose: 400 mg Documented By: Admin: 10/28/24 19:40 Dose: 400 mg Documented By: Admin: 10/28/24 08:46 Dose: 400 mg Documented By: Admin: 10/27/24 20:10 Dose: 400 mg Documented By: Admin: 10/27/24 09:29 Dose: 400 mg Documented By: cak Admin: 10/26/24 21:08 Dose: 400 mg Documented By: Admin: 10/26/24 08:09 Dose: 400 mg Documented By: Admin: 10/25/24 21:56 Dose: 400 mg Documented By: Admin: 10/25/24 07:39 Dose: 400 mg Documented By: Admin: 10/24/24 21:16 Dose: 400 mg Documented By: Admin: 10/24/24 07:28 Dose: 400 mg Documented By: Admin: 10/23/24 19:42 Dose: 400 mg Documented By: Admin: 10/23/24 09:39 Dose: 400 mg Documented By: Admin: 10/22/24 21:26 Dose: 400 mg Documented By: Admin: 10/22/24 09:14 Dose: 400 mg Documented By: beny Admin: 10/21/24 20:37 Dose: 400 mg Documented By: je Admin: 10/21/24 07:47 Dose: 400 mg Documented By: Admin: 10/20/24 21:38 Dose: 400 mg Documented By: Admin: 10/20/24 07:53 Dose: 400 mg Documented By: Admin: 10/19/24 21:58 Dose: 400 mg Documented By: Admin: 10/19/24 08:12 Dose: 400 mg Documented By: Admin: 10/18/24 21:46 Dose: 400 mg Documented By: snc Admin: 10/18/24 08:11 Dose: 400 mg Documented By: Admin: 10/17/24 21:50 Dose: 400 mg Documented By: snc Admin: 10/17/24 08:57 Dose: 400 mg Documented By: Admin: 10/16/24 20:38 Dose: 400 mg Documented By: Admin: 10/16/24 09:17 Dose: 400 mg Documented By: Admin: 10/15/24 21:03 Dose: 400 mg Documented By: rodriguez Admin: 10/15/24 09:44 Dose: 400 mg Documented By: Admin: 10/14/24 20:19 Dose: 400 mg Documented By: Admin: 10/14/24 09:59 Dose: Not Given Documented By: Admin: 10/13/24 20:17 Dose: 400 mg Documented By: Admin: 10/13/24 08:45 Dose: 400 mg Documented By: Admin: 10/12/24 20:21 Dose: 400 mg Documented By: Admin: 10/12/24 09:03 Dose: 400 mg Documented By: Admin: 10/11/24 21:38 Dose: 400 mg Documented By: Admin: 10/11/24 09:05 Dose: 400 mg Documented By: [email or web address] Admin: 10/10/24 21:08 Dose: 400 mg Documented By: Admin: 10/10/24 08:52 Dose: 400 mg Documented By: rhonda Admin: 10/09/24 20:22 Dose: 400 mg Documented By: Admin: 10/09/24 09:50 Dose: 400 mg Documented By: Admin: 10/08/24 20:37 Dose: 400 mg Documented By: Admin: 10/08/24 08:34 Dose: 400 mg Documented By: HUNTER Amlodipine Besylate (Amlodipine Besylate 5 Mg Tab) [facility] Stop: 11/07/24 08:59 Last Admin: 11/03/24 07:52 Dose: 5 mg Documented By: Admin: 11/02/24 09:04 Dose: 5 mg Documented By: Admin: 11/01/24 07:54 Dose: 5 mg Documented By: Admin: 10/31/24 08:37 Dose: 5 mg Documented By: RRValarie Admin: 10/30/24 09:02 Dose: 5 mg Documented By: Admin: 10/29/24 10:31 Dose: 5 mg Documented By: Admin: 10/28/24 08:46 Dose: 5 mg Documented By: Admin: 10/27/24 09:28 Dose: 5 mg Documented By: [email or web address] Admin: 10/26/24 08:09 Dose: 5 mg Documented By: Admin: 10/25/24 07:38 Dose: 5 mg Documented By: Admin: 10/24/24 07:28 Dose: 5 mg Documented By: Admin: 10/23/24 09:39 Dose: 5 mg Documented By: Admin: 10/22/24 09:15 Dose: 5 mg Documented By: beny Admin: 10/21/24 07:33 Dose: 5 mg Documented By: Admin: 10/20/24 07:53 Dose: 5 mg Documented By: Admin: 10/19/24 08:12 Dose: 5 mg Documented By: Admin: 10/18/24 08:11 Dose: 5 mg Documented By: Admin: 10/17/24 08:57 Dose: 5 mg Documented By: Admin: 10/16/24 09:18 Dose: 5 mg Documented By: Admin: 10/15/24 09:43 Dose: 5 mg Documented By: Admin: 10/14/24 12:56 Dose: 5 mg Documented By: Admin: 10/13/24 08:45 Dose: 5 mg Documented By: Admin: 10/12/24 09:03 Dose: 5 mg Documented By: Admin: 10/11/24 09:05 Dose: 5 mg Documented By: rhonda Admin: 10/10/24 08:52 Dose: 5 mg Documented By: [email or web address] Admin: 10/09/24 09:51 Dose: 5 mg Documented By: Admin: 10/08/24 08:36 Dose: 5 mg Documented By: HUNTER Atorvastatin Calcium (Atorvastatin 20 Mg Tab) 20 mg PO HS [place] Stop: 11/07/24 20:59 Last Admin: 10/10/24 21:08 Dose: 20 mg Documented By: Admin: 10/09/24 20:22 Dose: 20 mg Documented By: Admin: 10/08/24 20:37 Dose: 20 mg Documented By: MARILEE Citalopram Hydrobromide (Citalopram 20 Mg Tab) 20 mg PO QAM [place] Stop: 11/26/24 08:59 Last Admin: 11/03/24 07:53 Dose: 20 mg Documented By: Admin: 11/02/24 09:05 Dose: 20 mg Documented By: Admin: 11/01/24 07:54 Dose: 20 mg Documented By: Admin: 10/31/24 08:36 Dose: 20 mg Documented By: Admin: 10/30/24 09:02 Dose: 20 mg Documented By: Admin: 10/29/24 10:30 Dose: 20 mg Documented By: Admin: 10/28/24 08:46 Dose: 20 mg Documented By: Admin: 10/27/24 09:28 Dose: 20 mg Documented By: juliana Cyanocobalamin (Cyanocobalamin (B-12) 500 Mcg Tablet) 1,000 mcg PO QAM [place] Stop: 11/21/24 09:59 Last Admin: 11/03/24 07:52 Dose: 1,000 mcg Documented By: Admin: 11/02/24 09:04 Dose: 1,000 mcg Documented By: Admin: 11/01/24 07:54 Dose: 1,000 mcg Documented By: Admin: 10/31/24 08:36 Dose: 1,000 mcg Documented By: Admin: 10/30/24 09:02 Dose: 1,000 mcg Documented By: Admin: 10/29/24 10:31 Dose: 1,000 mcg Documented By: Admin: 10/28/24 08:47 Dose: 1,000 mcg Documented By: Admin: 10/27/24 09:28 Dose: 1,000 mcg Documented By: juliana Admin: 10/26/24 08:09 Dose: 1,000 mcg Documented By: Admin: 10/25/24 07:38 Dose: 1,000 mcg Documented By: Admin: 10/24/24 07:29 Dose: 1,000 mcg Documented By: Admin: 10/23/24 09:40 Dose: 1,000 mcg Documented By: Admin: 10/22/24 11:48 Dose: Not Given Documented By: NISA Enoxaparin Sodium (Enoxaparin Inj 40 Mg/0.4 Ml Syr) 40 mg SQ Q24H [place] Stop: 11/07/24 08:59 Last Admin: 11/03/24 07:51 Dose: 40 mg Documented By: Admin: 11/02/24 09:05 Dose: 40 mg Documented By: Admin: 11/01/24 07:55 Dose: 40 mg Documented By: Admin: 10/31/24 08:37 Dose: 40 mg Documented By: Admin: 10/30/24 09:02 Dose: 40 mg Documented By: Admin: 10/29/24 10:31 Dose: 40 mg Documented By: Admin: 10/28/24 08:46 Dose: 40 mg Documented By: Admin: 10/27/24 09:29 Dose: 40 mg Documented By: juliana Admin: 10/26/24 08:03 Dose: Not Given Documented By: Admin: 10/25/24 07:39 Dose: Not Given Documented By: Admin: 10/13/24 08:46 Dose: Not Given Documented By: Admin: 10/12/24 09:04 Dose: 40 mg Documented By: Admin: 10/11/24 09:06 Dose: 40 mg Documented By: rhonda Admin: 10/10/24 08:52 Dose: 40 mg Documented By: rhonda Admin: 10/09/24 09:51 Dose: 40 mg Documented By: Admin: 10/08/24 08:37 Dose: 40 mg Documented By: HUNTER Heparin Sodium (Beef Lung) (Heparin 10 Unit/Ml 5 Ml Flush) 5 ml FLUSH PRN PRN PRN Reason: Flush Stop: 11/23/24 17:29 Last Admin: 11/03/24 05:53 Dose: 5 ml Documented By: Admin: 11/02/24 21:46 Dose: 5 ml Documented By: Admin: 11/02/24 15:50 Dose: 5 ml Documented By: Admin: 10/31/24 22:40 Dose: 5 ml Documented By: Admin: 10/31/24 05:37 Dose: 5 ml Documented By: Admin: 10/30/24 05:50 Dose: 5 ml Documented By: Admin: 10/29/24 05:20 Dose: 5 ml Documented By: Admin: 10/28/24 05:28 Dose: 5 ml Documented By: Admin: 10/27/24 20:13 Dose: 5 ml Documented By: Admin: 10/27/24 02:19 Dose: 5 ml Documented By: Admin: 10/26/24 08:08 Dose: 5 ml Documented By: Admin: 10/25/24 22:00 Dose: 5 ml Documented By: Admin: 10/24/24 18:55 Dose: 5 ml Documented By: LMC Heparin Sodium (Porcine) (Heparin 100 Unit/Ml 5ml Flush) 5 ml FLUSH PRN PRN PRN Reason: Flush Stop: 11/07/24 03:03 Last Admin: 10/23/24 19:43 Dose: 5 ml Documented By: Admin: 10/12/24 05:22 Dose: 5 ml Documented By: Admin: 10/09/24 10:11 Dose: 5 ml Documented By: ARTEMIO Vancomycin HCl 750 mg/ Sodium (Chloride) 265 mls @ 200 mls/hr IV Q8H [place] Stop: 12/03/24 23:59 Last Infusion: 11/03/24 08:11 Dose: Infused Documented By: Admin: 11/03/24 05:53 Dose: 200 mls/hr Documented By: Infusion: 11/02/24 23:52 Dose: Infused Documented By: Admin: 11/02/24 21:46 Dose: 200 mls/hr Documented By: Infusion: 11/02/24 15:49 Dose: Infused Documented By: Admin: 11/02/24 14:23 Dose: 200 mls/hr Documented By: Infusion: 11/02/24 06:38 Dose: Infused Documented By: Admin: 11/02/24 05:01 Dose: 200 mls/hr Documented By: Infusion: 11/01/24 23:44 Dose: Infused Documented By: Admin: 11/01/24 22:18 Dose: 200 mls/hr Documented By: Infusion: 11/01/24 15:18 Dose: Infused Documented By: Admin: 11/01/24 13:25 Dose: 200 mls/hr Documented By: Infusion: 11/01/24 07:52 Dose: Infused Documented By: Admin: 11/01/24 06:07 Dose: 200 mls/hr Documented By: Infusion: 10/31/24 22:31 Dose: Infused Documented By: Admin: 10/31/24 21:11 Dose: 200 mls/hr Documented By: Infusion: 10/31/24 16:04 Dose: Infused Documented By: Admin: 10/31/24 14:40 Dose: 200 mls/hr Documented By: Infusion: 10/31/24 07:30 Dose: Infused Documented By: Admin: 10/31/24 05:37 Dose: 200 mls/hr Documented By: Infusion: 10/30/24 22:53 Dose: Infused Documented By: Admin: 10/30/24 21:06 Dose: 200 mls/hr Documented By: je Infusion: 10/30/24 16:06 Dose: Infused Documented By: Admin: 10/30/24 14:31 Dose: 200 mls/hr Documented By: Infusion: 10/30/24 07:22 Dose: Infused Documented By: Admin: 10/30/24 05:52 Dose: 200 mls/hr Documented By: je Infusion: 10/29/24 22:37 Dose: Infused Documented By: je Admin: 10/29/24 21:00 Dose: 200 mls/hr Documented By: je Infusion: 10/29/24 16:06 Dose: Infused Documented By: srikanthk Admin: 10/29/24 14:36 Dose: 200 mls/hr Documented By: Infusion: 10/29/24 06:47 Dose: Infused Documented By: Admin: 10/29/24 05:06 Dose: 200 mls/hr Documented By: Infusion: 10/29/24 00:05 Dose: Infused Documented By: Admin: 10/28/24 22:45 Dose: 200 mls/hr Documented By: Infusion: 10/28/24 15:47 Dose: Infused Documented By: Admin: 10/28/24 14:27 Dose: 200 mls/hr Documented By: Infusion: 10/28/24 07:07 Dose: Infused Documented By: Admin: 10/28/24 05:28 Dose: 200 mls/hr Documented By: Infusion: 10/28/24 00:10 Dose: Infused Documented By: Admin: 10/27/24 22:50 Dose: 200 mls/hr Documented By: Infusion: 10/27/24 16:18 Dose: Infused Documented By: Admin: 10/27/24 14:17 Dose: 200 mls/hr Documented By: DANUTA Insulin Aspart (Insulin Aspart Per Unit Charge) 0 units SC ACHS [place] Stop: 11/13/24 05:59 Last Admin: 11/03/24 11:24 Dose: Not Given Documented By: Admin: 11/03/24 07:55 Dose: Not Given Documented By: Admin: 11/02/24 21:48 Dose: Not Given Documented By: Admin: 11/02/24 16:37 Dose: Not Given Documented By: Admin: 11/02/24 11:33 Dose: Not Given Documented By: Admin: 11/02/24 07:55 Dose: Not Given Documented By: Admin: 11/01/24 23:57 Dose: Not Given Documented By: LRA Co-signed By: ALW Admin: 11/01/24 16:53 Dose: Not Given Documented By: Admin: 11/01/24 11:47 Dose: Not Given Documented By: Admin: 11/01/24 07:52 Dose: Not Given Documented By: Admin: 11/01/24 00:06 Dose: Not Given Documented By: EM Co-signed By: SW Admin: 10/31/24 16:59 Dose: Not Given Documented By: Admin: 10/31/24 12:07 Dose: Not Given Documented By: Admin: 10/31/24 09:23 Dose: Not Given Documented By: Admin: 10/30/24 21:00 Dose: Not Given Documented By: je Co-signed By: JULIEN Admin: 10/30/24 17:02 Dose: Not Given Documented By: Admin: 10/30/24 12:09 Dose: Not Given Documented By: Admin: 10/30/24 07:43 Dose: Not Given Documented By: Admin: 10/29/24 20:55 Dose: Not Given Documented By: je Co-signed By: HLJ Admin: 10/29/24 16:58 Dose: Not Given Documented By: Admin: 10/29/24 11:27 Dose: Not Given Documented By: Admin: 10/29/24 09:01 Dose: Not Given Documented By: Admin: 10/28/24 20:37 Dose: Not Given Documented By: Admin: 10/28/24 16:37 Dose: Not Given Documented By: Admin: 10/28/24 12:04 Dose: Not Given Documented By: Admin: 10/28/24 07:55 Dose: Not Given Documented By: Admin: 10/27/24 20:16 Dose: Not Given Documented By: Admin: 10/27/24 16:47 Dose: Not Given Documented By: [email or web address] Co-signed By: DANUTA Admin: 10/27/24 12:31 Dose: Not Given Documented By: ADB Co-signed By: cak Admin: 10/27/24 09:36 Dose: Not Given Documented By: cak Co-signed By: ADB Admin: 10/26/24 21:00 Dose: Not Given Documented By: Admin: 10/26/24 17:00 Dose: Not Given Documented By: Admin: 10/26/24 11:58 Dose: Not Given Documented By: Admin: 10/26/24 07:37 Dose: Not Given Documented By: Admin: 10/25/24 21:03 Dose: Not Given Documented By: Admin: 10/25/24 16:49 Dose: Not Given Documented By: Admin: 10/25/24 11:59 Dose: Not Given Documented By: Admin: 10/25/24 08:31 Dose: Not Given Documented By: Admin: 10/24/24 20:58 Dose: Not Given Documented By: Admin: 10/24/24 17:31 Dose: Not Given Documented By: LMC Co-signed By: BECCA Admin: 10/24/24 12:26 Dose: Not Given Documented By: LMC Co-signed By: KS Admin: 10/24/24 07:33 Dose: Not Given Documented By: LMC Co-signed By: MRE Admin: 10/23/24 20:29 Dose: Not Given Documented By: Admin: 10/23/24 16:37 Dose: Not Given Documented By: LMC Co-signed By: MRE Admin: 10/23/24 11:42 Dose: Not Given Documented By: LMC Co-signed By: ASIF Admin: 10/23/24 08:27 Dose: Not Given Documented By: LMC Co-signed By: MPS Admin: 10/22/24 21:19 Dose: Not Given Documented By: GRECIAY Co-signed By: MLM Admin: 10/22/24 17:22 Dose: Not Given Documented By: Admin: 10/22/24 11:36 Dose: Not Given Documented By: KER Co-signed By: wnt Admin: 10/22/24 09:12 Dose: Not Given Documented By: wnt Co-signed By: NISA Admin: 10/21/24 20:38 Dose: Not Given Documented By: je Co-signed By: JULIEN Admin: 10/21/24 16:44 Dose: Not Given Documented By: Admin: 10/21/24 11:36 Dose: Not Given Documented By: Admin: 10/21/24 07:32 Dose: Not Given Documented By: Admin: 10/20/24 20:41 Dose: Not Given Documented By: Admin: 10/20/24 16:47 Dose: Not Given Documented By: Admin: 10/20/24 11:42 Dose: Not Given Documented By: Admin: 10/20/24 07:46 Dose: Not Given Documented By: Admin: 10/19/24 21:15 Dose: Not Given Documented By: Admin: 10/19/24 17:23 Dose: Not Given Documented By: LMC Co-signed By: AAH Admin: 10/19/24 12:32 Dose: Not Given Documented By: LMC Co-signed By: AAH Admin: 10/19/24 07:41 Dose: Not Given Documented By: LMC Co-signed By: AAH Admin: 10/18/24 21:15 Dose: Not Given Documented By: snc Co-signed By: ANS Admin: 10/18/24 17:04 Dose: Not Given Documented By: LMC Co-signed By: AA Admin: 10/18/24 11:58 Dose: Not Given Documented By: LMC Co-signed By: CSE Admin: 10/18/24 08:18 Dose: Not Given Documented By: LMC Co-signed By: VGS Admin: 10/17/24 21:36 Dose: Not Given Documented By: Admin: 10/17/24 17:45 Dose: Not Given Documented By: Admin: 10/17/24 12:08 Dose: Not Given Documented By: Admin: 10/17/24 08:58 Dose: Not Given Documented By: Admin: 10/16/24 20:46 Dose: Not Given Documented By: Admin: 10/16/24 17:06 Dose: Not Given Documented By: Admin: 10/16/24 12:00 Dose: Not Given Documented By: Admin: 10/16/24 09:14 Dose: Not Given Documented By: Admin: 10/15/24 21:06 Dose: Not Given Documented By: ksy Co-signed By: TERI Admin: 10/15/24 17:11 Dose: Not Given Documented By: DMH Co-signed By: KS Admin: 10/15/24 11:33 Dose: Not Given Documented By: DMH Co-signed By: AA Admin: 10/15/24 09:14 Dose: Not Given Documented By: JOSEPHINE Co-signed By: PIERRE Admin: 10/14/24 20:39 Dose: Not Given Documented By: Admin: 10/14/24 16:50 Dose: Not Given Documented By: JACK Lactobacillus Acidophilus (Advanced Probiotic 625 Mg Capsule) 1,250 mg PO DAILY [place] Stop: 11/09/24 08:59 Last Admin: 11/03/24 07:51 Dose: 1,250 mg Documented By: Admin: 11/02/24 09:04 Dose: 1,250 mg Documented By: Admin: 11/01/24 07:54 Dose: 1,250 mg Documented By: RRValarie Admin: 10/31/24 08:36 Dose: 1,250 mg Documented By: Admin: 10/30/24 09:02 Dose: 1,250 mg Documented By: Admin: 10/29/24 10:30 Dose: 1,250 mg Documented By: Admin: 10/28/24 08:46 Dose: 1,250 mg Documented By: Admin: 10/27/24 09:28 Dose: 1,250 mg Documented By: cak Admin: 10/26/24 08:09 Dose: 1,250 mg Documented By: Admin: 10/25/24 07:38 Dose: 1,250 mg Documented By: Admin: 10/24/24 07:29 Dose: 1,250 mg Documented By: Admin: 10/23/24 09:41 Dose: 1,250 mg Documented By: Admin: 10/22/24 09:14 Dose: 1,250 mg Documented By: beny Admin: 10/21/24 07:34 Dose: 1,250 mg Documented By: Admin: 10/20/24 07:53 Dose: 1,250 mg Documented By: Admin: 10/19/24 08:13 Dose: 1,250 mg Documented By: Admin: 10/18/24 08:12 Dose: 1,250 mg Documented By: Admin: 10/17/24 08:57 Dose: 1,250 mg Documented By: Admin: 10/16/24 12:23 Dose: Not Given Documented By: Admin: 10/15/24 09:43 Dose: 1,250 mg Documented By: Admin: 10/14/24 12:55 Dose: 1,250 mg Documented By: Admin: 10/13/24 08:44 Dose: 1,250 mg Documented By: Admin: 10/12/24 09:02 Dose: 1,250 mg Documented By: Admin: 10/11/24 09:06 Dose: 1,250 mg Documented By: rhonda Admin: 10/10/24 08:52 Dose: 1,250 mg Documented By: rhonda Levofloxacin (Levofloxacin 500 Mg Tab) 500 mg PO [facility]; Protocol Stop: 11/07/24 08:59 Last Admin: 10/14/24 12:57 Dose: 500 mg Documented By: Admin: 10/13/24 08:44 Dose: 500 mg Documented By: Admin: 10/12/24 09:02 Dose: 500 mg Documented By: Admin: 10/11/24 09:06 Dose: 500 mg Documented By: rhonda Admin: 10/10/24 08:52 Dose: 500 mg Documented By: rhonda Admin: 10/09/24 09:54 Dose: 500 mg Documented By: Admin: 10/08/24 08:36 Dose: 500 mg Documented By: HUNTER Lidocaine (Lidocaine 5% 1 Patch) 1 patch TD [facility] Stop: 11/07/24 08:59 Last Admin: 11/03/24 07:52 Dose: 1 patch Documented By: Admin: 11/02/24 09:05 Dose: 1 patch Documented By: Admin: 11/01/24 07:53 Dose: 1 patch Documented By: Admin: 10/31/24 08:37 Dose: 1 patch Documented By: Admin: 10/30/24 09:03 Dose: 1 patch Documented By: Admin: 10/29/24 10:25 Dose: 1 patch Documented By: Admin: 10/28/24 07:37 Dose: 1 patch Documented By: Admin: 10/27/24 09:27 Dose: 1 patch Documented By: juliana Admin: 10/26/24 10:00 Dose: Not Given Documented By: Admin: 10/25/24 07:39 Dose: 1 patch Documented By: Admin: 10/24/24 07:29 Dose: 1 patch Documented By: Admin: 10/23/24 09:41 Dose: 1 patch Documented By: Admin: 10/22/24 09:19 Dose: 1 patch Documented By: beny Admin: 10/21/24 07:35 Dose: 1 patch Documented By: Admin: 10/20/24 08:00 Dose: 1 patch Documented By: Admin: 10/19/24 08:13 Dose: Not Given Documented By: Admin: 10/18/24 08:12 Dose: Not Given Documented By: Admin: 10/17/24 09:00 Dose: Not Given Documented By: Admin: 10/16/24 17:08 Dose: Not Given Documented By: Admin: 10/15/24 10:23 Dose: Not Given Documented By: Admin: 10/14/24 12:12 Dose: Not Given Documented By: Admin: 10/13/24 08:46 Dose: Not Given Documented By: Admin: 10/12/24 09:04 Dose: 1 patch Documented By: Admin: 10/11/24 09:26 Dose: Not Given Documented By: rhonda Admin: 10/10/24 08:53 Dose: 1 patch Documented By: rhonda Admin: 10/09/24 12:52 Dose: 1 patch Documented By: Admin: 10/08/24 08:36 Dose: 1 patch Documented By: SLH Melatonin (Melatonin 3 Mg Tab) 3 mg PO HS PRN PRN Reason: Insomnia Stop: 11/07/24 03:07 Last Admin: 11/02/24 21:47 Dose: 3 mg Documented By: Admin: 10/28/24 19:40 Dose: 3 mg Documented By: Admin: 10/27/24 20:09 Dose: 3 mg Documented By: Admin: 10/26/24 21:15 Dose: 3 mg Documented By: Admin: 10/25/24 22:00 Dose: 3 mg Documented By: Admin: 10/24/24 21:17 Dose: 3 mg Documented By: Admin: 10/23/24 19:41 Dose: 3 mg Documented By: Admin: 10/22/24 21:25 Dose: 3 mg Documented By: Admin: 10/20/24 21:39 Dose: 3 mg Documented By: Admin: 10/19/24 21:58 Dose: 3 mg Documented By: Admin: 10/18/24 21:46 Dose: 3 mg Documented By: snc Admin: 10/17/24 21:48 Dose: 3 mg Documented By: kerry Admin: 10/16/24 22:47 Dose: 3 mg Documented By: MARILOU Mirtazapine (Mirtazapine Tab 15 Mg Tab) 7.5 mg PO HS [place] Stop: 11/25/24 20:59 Last Admin: 11/02/24 21:49 Dose: 7.5 mg Documented By: Admin: 11/01/24 22:06 Dose: 7.5 mg Documented By: Admin: 10/31/24 21:04 Dose: 7.5 mg Documented By: Admin: 10/30/24 21:02 Dose: 7.5 mg Documented By: je Admin: 10/29/24 20:54 Dose: 7.5 mg Documented By: je Admin: 10/28/24 19:41 Dose: 7.5 mg Documented By: Admin: 10/27/24 20:11 Dose: 7.5 mg Documented By: Admin: 10/26/24 21:09 Dose: 7.5 mg Documented By: NESTOR Miscellaneous (Remove Lidoderm Patch) 1 each N/A DAILY@2100 [facility] Stop: 11/07/24 20:59 Last Admin: 11/02/24 21:48 Dose: 1 each Documented By: Admin: 11/01/24 22:07 Dose: 1 each Documented By: Admin: 10/31/24 21:05 Dose: 1 each Documented By: Admin: 10/30/24 20:59 Dose: 1 each Documented By: je Admin: 10/29/24 20:58 Dose: 1 each Documented By: je Admin: 10/28/24 19:41 Dose: 1 each Documented By: Admin: 10/27/24 20:11 Dose: 1 each Documented By: Admin: 10/26/24 21:10 Dose: Not Given Documented By: Admin: 10/25/24 21:56 Dose: 1 each Documented By: Admin: 10/24/24 21:17 Dose: 1 each Documented By: Admin: 10/23/24 19:44 Dose: 1 each Documented By: Admin: 10/22/24 21:27 Dose: 1 each Documented By: Admin: 10/21/24 22:01 Dose: Not Given Documented By: jjg Admin: 10/20/24 21:46 Dose: 1 each Documented By: Admin: 10/19/24 21:58 Dose: 1 each Documented By: Admin: 10/18/24 22:29 Dose: Not Given Documented By: snc Admin: 10/17/24 21:07 Dose: Not Given Documented By: Admin: 10/16/24 20:39 Dose: 1 each Documented By: Admin: 10/15/24 21:19 Dose: Not Given Documented By: ksy Admin: 10/14/24 20:39 Dose: Not Given Documented By: Admin: 10/13/24 20:17 Dose: Not Given Documented By: Admin: 10/12/24 20:27 Dose: Not Given Documented By: Admin: 10/11/24 21:34 Dose: 1 each Documented By: Admin: 10/10/24 21:08 Dose: 1 each Documented By: Admin: 10/09/24 20:22 Dose: 1 each Documented By: Admin: 10/08/24 20:40 Dose: 1 each Documented By: MARILEE Oxycodone HCl (Oxycodone Hcl Ir 5 Mg Tab (Immediate Release)) 5 mg PO Q4 PRN PRN Reason: Severe Pain (Scale 7, 8, 9,10) Stop: 11/05/24 04:14 Last Admin: 11/03/24 11:57 Dose: 5 mg Documented By: Admin: 11/02/24 04:55 Dose: 5 mg Documented By: Admin: 11/01/24 16:22 Dose: 5 mg Documented By: Admin: 11/01/24 11:50 Dose: 5 mg Documented By: Admin: 10/31/24 12:09 Dose: 5 mg Documented By: TERRIE Oxycodone HCl (Oxycodone Hcl 15 Mg Tabcr (Oxycontin)) 15 mg PO Q12 [place] Stop: 11/16/24 08:59 Last Admin: 11/03/24 07:50 Dose: 15 mg Documented By: Admin: 11/02/24 21:47 Dose: 15 mg Documented By: Admin: 11/02/24 09:05 Dose: 15 mg Documented By: BALJINDER Polyethylene Glycol (Polyethylene (Miralax) 17 Gm Pack) 17 gm PO QAM [place] Stop: 11/19/24 08:59 Last Admin: 11/03/24 07:50 Dose: 17 gm Documented By: Admin: 11/02/24 09:05 Dose: 17 gm Documented By: Admin: 11/01/24 07:55 Dose: 17 gm Documented By: Admin: 10/31/24 08:42 Dose: 17 gm Documented By: Admin: 10/30/24 09:01 Dose: 17 gm Documented By: Admin: 10/29/24 10:25 Dose: 17 gm Documented By: Admin: 10/28/24 08:46 Dose: 17 gm Documented By: Admin: 10/27/24 12:24 Dose: Not Given Documented By: Admin: 10/26/24 08:03 Dose: Not Given Documented By: Admin: 10/25/24 07:46 Dose: Not Given Documented By: Admin: 10/24/24 07:30 Dose: 17 gm Documented By: Admin: 10/23/24 09:41 Dose: 17 gm Documented By: Admin: 10/22/24 09:23 Dose: 17 gm Documented By: beny Admin: 10/21/24 07:35 Dose: Not Given Documented By: Admin: 10/20/24 07:52 Dose: 17 gm Documented By: FILI Potassium Chloride (Potassium Chloride Crtab 20 Meq Tabcr) 20 meq PO DAILY [place] Stop: 11/27/24 08:59 Last Admin: 11/03/24 07:50 Dose: 20 meq Documented By: Admin: 11/02/24 09:04 Dose: 20 meq Documented By: Admin: 11/01/24 07:55 Dose: 20 meq Documented By: Admin: 10/31/24 08:36 Dose: 20 meq Documented By: Admin: 10/30/24 09:01 Dose: 20 meq Documented By: Admin: 10/29/24 10:30 Dose: 20 meq Documented By: Admin: 10/28/24 08:46 Dose: 20 meq Documented By: BECCA Pregabalin (Pregabalin 25 Mg Cap) 25 mg PO TID [place] Stop: 11/30/24 08:59 Last Admin: 11/03/24 07:50 Dose: 25 mg Documented By: Admin: 11/02/24 21:47 Dose: 25 mg Documented By: Admin: 11/02/24 14:23 Dose: 25 mg Documented By: Admin: 11/02/24 09:05 Dose: 25 mg Documented By: Admin: 11/01/24 22:06 Dose: 25 mg Documented By: Admin: 11/01/24 13:25 Dose: 25 mg Documented By: Admin: 11/01/24 07:55 Dose: 25 mg Documented By: Admin: 10/31/24 21:04 Dose: 25 mg Documented By: Admin: 10/31/24 13:32 Dose: 25 mg Documented By: Admin: 10/31/24 08:36 Dose: 25 mg Documented By: TERRIE Senna/Docusate Sodium (Docusate Sodium/Senna 50/8.6mg Tab) 1 tab PO BID [place] Stop: 11/07/24 08:59 Last Admin: 11/03/24 07:50 Dose: 1 tab Documented By: Admin: 11/02/24 21:51 Dose: 1 tab Documented By: Admin: 11/02/24 09:05 Dose: 1 tab Documented By: Admin: 11/01/24 22:06 Dose: 1 tab Documented By: Admin: 11/01/24 07:54 Dose: 1 tab Documented By: Admin: 10/31/24 21:04 Dose: 1 tab Documented By: Admin: 10/31/24 08:37 Dose: 1 tab Documented By: Admin: 10/30/24 20:58 Dose: Not Given Documented By: je Admin: 10/30/24 09:01 Dose: 1 tab Documented By: Admin: 10/29/24 20:57 Dose: Not Given Documented By: je Admin: 10/29/24 10:30 Dose: 1 tab Documented By: Admin: 10/28/24 19:40 Dose: 1 tab Documented By: Admin: 10/28/24 08:46 Dose: 1 tab Documented By: Admin: 10/27/24 20:10 Dose: Not Given Documented By: Admin: 10/27/24 12:24 Dose: Not Given Documented By: Admin: 10/26/24 21:08 Dose: Not Given Documented By: Admin: 10/26/24 08:02 Dose: Not Given Documented By: Admin: 10/25/24 22:00 Dose: 1 tab Documented By: Admin: 10/25/24 07:38 Dose: 1 tab Documented By: K Admin: 10/24/24 21:17 Dose: 1 tab Documented By: Admin: 10/24/24 07:29 Dose: 1 tab Documented By: Admin: 10/23/24 19:40 Dose: 1 tab Documented By: Admin: 10/23/24 09:40 Dose: 1 tab Documented By: Admin: 10/22/24 21:25 Dose: 1 tab Documented By: Admin: 10/22/24 09:27 Dose: Not Given Documented By: beny Admin: 10/21/24 20:37 Dose: 1 tab Documented By: je Admin: 10/21/24 07:44 Dose: 1 tab Documented By: Admin: 10/20/24 21:40 Dose: 1 tab Documented By: Admin: 10/20/24 07:52 Dose: 1 tab Documented By: Admin: 10/19/24 21:58 Dose: 1 tab Documented By: Admin: 10/19/24 08:14 Dose: 1 tab Documented By: Admin: 10/18/24 21:42 Dose: Not Given Documented By: snc Admin: 10/18/24 08:12 Dose: Not Given Documented By: Admin: 10/17/24 21:51 Dose: Not Given Documented By: snc Admin: 10/17/24 09:00 Dose: Not Given Documented By: Admin: 10/16/24 20:38 Dose: 1 tab Documented By: Admin: 10/16/24 12:23 Dose: Not Given Documented By: Admin: 10/15/24 21:19 Dose: Not Given Documented By: ksy Admin: 10/15/24 09:42 Dose: Not Given Documented By: DMPrasanth Admin: 10/14/24 20:19 Dose: Not Given Documented By: Admin: 10/14/24 09:59 Dose: Not Given Documented By: Admin: 10/13/24 20:17 Dose: 1 tab Documented By: Admin: 10/13/24 08:44 Dose: 1 tab Documented By: Admin: 10/12/24 20:21 Dose: 1 tab Documented By: Admin: 10/12/24 09:00 Dose: 1 tab Documented By: Admin: 10/11/24 21:39 Dose: Not Given Documented By: Admin: 10/11/24 07:57 Dose: Not Given Documented By: rhonda Admin: 10/10/24 20:36 Dose: Not Given Documented By: Admin: 10/10/24 08:52 Dose: 1 tab Documented By: rhonda Admin: 10/09/24 20:18 Dose: 1 tab Documented By: Admin: 10/09/24 10:11 Dose: 1 tab Documented By: Admin: 10/08/24 20:37 Dose: 1 tab Documented By: Admin: 10/08/24 08:43 Dose: 1 tab Documented By: HUNTER Voriconazole (Voriconazole 200 Mg Tablet) 200 mg PO Q12 [facility] Stop: 11/07/24 08:59 Last Admin: 11/03/24 07:51 Dose: 200 mg Documented By: Admin: 11/02/24 21:47 Dose: 200 mg Documented By: Admin: 11/02/24 09:04 Dose: 200 mg Documented By: Admin: 11/01/24 22:06 Dose: 200 mg Documented By: Admin: 11/01/24 07:55 Dose: 200 mg Documented By: Admin: 10/31/24 21:05 Dose: 200 mg Documented By: Admin: 10/31/24 08:36 Dose: 200 mg Documented By: RRValarie Admin: 10/30/24 21:01 Dose: 200 mg Documented By: je Admin: 10/30/24 09:03 Dose: 200 mg Documented By: Admin: 10/29/24 20:54 Dose: 200 mg Documented By: je Admin: 10/29/24 10:30 Dose: 200 mg Documented By: Admin: 10/28/24 19:39 Dose: 200 mg Documented By: Admin: 10/28/24 08:46 Dose: 200 mg Documented By: Admin: 10/27/24 20:11 Dose: 200 mg Documented By: Admin: 10/27/24 09:28 Dose: 200 mg Documented By: cak Admin: 10/26/24 21:10 Dose: 200 mg Documented By: Admin: 10/26/24 08:10 Dose: 200 mg Documented By: Admin: 10/25/24 21:55 Dose: 200 mg Documented By: Admin: 10/25/24 07:38 Dose: 200 mg Documented By: Admin: 10/24/24 21:17 Dose: 200 mg Documented By: Admin: 10/24/24 07:30 Dose: 200 mg Documented By: Admin: 10/23/24 19:42 Dose: 200 mg Documented By: Admin: 10/23/24 09:41 Dose: 200 mg Documented By: Admin: 10/22/24 21:27 Dose: 200 mg Documented By: Admin: 10/22/24 09:15 Dose: 200 mg Documented By: beny Admin: 10/21/24 20:36 Dose: 200 mg Documented By: je Admin: 10/21/24 07:35 Dose: 200 mg Documented By: Admin: 10/20/24 21:39 Dose: 200 mg Documented By: Admin: 10/20/24 07:59 Dose: 200 mg Documented By: Admin: 10/19/24 21:58 Dose: 200 mg Documented By: Admin: 10/19/24 08:12 Dose: 200 mg Documented By: Admin: 10/18/24 21:46 Dose: 200 mg Documented By: snc Admin: 10/18/24 08:13 Dose: 200 mg Documented By: Admin: 10/17/24 21:50 Dose: 200 mg Documented By: snc Admin: 10/17/24 08:56 Dose: 200 mg Documented By: Admin: 10/16/24 20:41 Dose: 200 mg Documented By: Admin: 10/16/24 09:12 Dose: 200 mg Documented By: Admin: 10/15/24 21:24 Dose: 200 mg Documented By: [email or web address] Admin: 10/15/24 09:46 Dose: 200 mg Documented By: Admin: 10/14/24 20:19 Dose: 200 mg Documented By: Admin: 10/14/24 12:55 Dose: 200 mg Documented By: Admin: 10/13/24 20:17 Dose: 200 mg Documented By: Admin: 10/13/24 08:44 Dose: 200 mg Documented By: Admin: 10/12/24 20:21 Dose: 200 mg Documented By: Admin: 10/12/24 09:02 Dose: 200 mg Documented By: Admin: 10/11/24 21:38 Dose: 200 mg Documented By: Admin: 10/11/24 09:06 Dose: 200 mg Documented By: rhonda Admin: 10/10/24 21:07 Dose: 200 mg Documented By: Admin: 10/10/24 08:52 Dose: 200 mg Documented By: rhonda Admin: 10/09/24 20:22 Dose: 200 mg Documented By: Admin: 10/09/24 09:52 Dose: 200 mg Documented By: Admin: 10/08/24 20:38 Dose: 200 mg Documented By: Admin: 10/08/24 08:35 Dose: 200 mg Documented By: HUNTER
--- NOTE | 2024-11-03 13:27 | Palliative Care Progress Note ---
Date of Service November 03, 2024 Assessment & Plan (1) Weakness generalized: Plan: Encourage good sleep hygeine, adequate nutrition and pain management. (2) Cancer related pain: Plan: Pt states that she still has random sharp fleeting pains in her right flank/lower back. She states otherwise her pain is well managed, but expressed concern with increasing drowsiness. Her long acting oxy was recently increased and this may be a transient effect of OxyER. Pt agreeable to continuing on current schedule as it is managing her pain well. She has utilized only one PRN dose over past 24hrs, and verbally confirms improved pain mgmt. continue oxycontin to 15mg bid based on 24 hour oxycodone need, continue pregablin 25 tid -continue oxycodone 5mg frequency prn to q4hrs (3) Poor appetite: Plan: Pt shared that she feels that she has a good appetite, but the food is too heavily salted and makes her loose her appetite after a bite or two. She also states that she feels more hungry at times that are not hospital meal times, but by the time the trays are brought she does not feel hungry. She stated that she cannot predict when she feels hungry to schedule meals here accordingly. Encouraged her to request healthy snacks or protein drinks from [facility] when she is hungry, or ask for her mealtray to be brought to her at these times. Suggested switching to low sodium diet, pt not agreeable. Also shared with pt that she can have family bring in food that is more appetizing to her. (4) Palliative care by specialist: Plan: Palliative care will continue to follow for ongoing symptom mgmt and patient/family support. Plan as above Admission and Anticipated Discharge Date Admission Date: October 08, 2024 Subjective Assessed pt at bedside, no visitors present. Pt AAO x4 and in NAD on room air. Pt currently denies any discomfort. She shared that she is concerned about excessive drowsiness only. Review of Systems Constitutional: as per Subjective / HPI, + weight loss and + daytime sleepiness poor appetite Physical Exam Constitutional: well developed, well nourished, + ill appearing, cooperative and comfortable; no acute distress Eyes: PERRL, conjunctivae normal, anicteric sclerae Neck: trachea midline, no thyromegaly Respiratory: normal respiratory effort, lungs clear to auscultation Gastrointestinal (Abdomen): normal bowel sounds, soft, nontender, no hepatosplenomegaly Musculoskeletal: no cyanosis or clubbing, extremities motor strength 5/5 Skin: no rashes, warm and dry Neurologic: PERRL, EOMI, accommodation nl, no face palsy, no dysarthria Results & Data Vital Signs (Past 12 Hours) Vital Signs Temp Pulse Resp BP Pulse Ox O2 Del Method 11/03/24 07:35 36.7 C 80 16 111/63 90 Room Air Laboratory Results Abnormal lab results 11/02/24 11/02/24 11/03/24 Range/Units 16:25 20:32 07:36 POC Glucose 119 H 112 H 101 H (70-99) mg/dl 11/03/24 Range/Units 11:17 POC Glucose 105 H (70-99) mg/dl Diagnostic Findings Abdomen/Pelvis CT 10/07/24 19:31 Exam(s): CT ABDOMEN + PELVIS Without Contrast EXAM: CT Abdomen and Pelvis Without Intravenous Contrast CLINICAL HISTORY: Reason for exam: low back pain, recent fx in spine. TECHNIQUE: Axial computed tomography images of the abdomen and pelvis without intravenous contrast. CTDI is 20.82 mGy and DLP is 705.94 mGy-cm. Automated exposure control was utilized for the study. A dose lowering technique was utilized adhering to the principles of ALARA. COMPARISON: CT lumbar spine 09/25/2024, CT abdomen and pelvis 02/24/2024 FINDINGS: Lung bases: Unremarkable. ABDOMEN: Liver: Unremarkable. Gallbladder and bile ducts: Unremarkable. No calcified stones. No ductal dilation. Pancreas: Unremarkable. No ductal dilation. Spleen: Unremarkable. No splenomegaly. Adrenals: Unremarkable. No mass. Kidneys and ureters: Large calculus right renal pelvis measuring 3 cm. No associated hydronephrosis. Additional right kidney caliceal stone measuring 12 mm. Left kidney and collecting system are unremarkable. Stomach and bowel: Unremarkable. No mucosal thickening. No bowel obstruction. PELVIS: Appendix: Appendix not visualized. Bladder: Unremarkable. No stones. Reproductive: Hysterectomy. ABDOMEN and PELVIS: Intraperitoneal space: Unremarkable. No free air, significant free fluid, or fluid collection. Bones/joints: Acute or subacute 70% L1 compression fracture with 7 mm retropulsion producing [id number] spinal canal stenosis. Acute/subacute 30% L3 compression fracture without retropulsion. No other fractures. Osteopenia. Disc and facet degeneration with grade 1 anterolisthesis of L4. No dislocation. Soft tissues: Small fat containing umbilical hernia. Vasculature: Atherosclerosis. No abdominal aortic aneurysm. Lymph nodes: Unremarkable. No enlarged lymph nodes. IMPRESSION: 1. Acute/subacute 70% L1 compression fracture with 7 mm retropulsion producing [id number] spinal canal stenosis. 2. Acute/subacute 30% L3 compression fracture without retropulsion. 3. Large calculus right renal pelvis measuring 3 cm. No associated hydronephrosis. Electronically signed by: Raoul Mari M.D. 10/07/24 21:[address] 10/07/24 19:31 Exam(s): CT L SPINE EXAM: CT Lumbar Spine Without Intravenous Contrast CLINICAL HISTORY: Reason for exam: low back pain, recent fx in spine. TECHNIQUE: Axial computed tomography images of the lumbar spine without intravenous contrast. CTDI is 20.82 mGy and DLP is 705.94 mGy-cm. Automated exposure control was utilized for the study. A dose lowering technique was utilized adhering to the principles of ALARA. COMPARISON: CT lumbar spine 09/25/2024; CT abdomen and pelvis 02/24/24 FINDINGS: There is an acute/subacute 70% L1 compression fracture with 7 mm retropulsion producing moderate to severe spinal canal stenosis. There is an acute/subacute 30% L3 compression fracture without retropulsion. Vertebral body heights are otherwise maintained. Bones are osteopenic. There is disc and facet degeneration at multiple lumbar levels. L1-L2: Moderate-severe spinal canal stenosis due to retropulsed bone related to the L1 fracture. Moderate bilateral foraminal narrowing. L2-L3: Disc bulging mildly narrowing the spinal canal. Foramina are patent. L3-L4: Compression fracture at L3. Disc bulging and ligamentum flavum thickening. Mild spinal canal narrowing. Mild right and moderate left foraminal narrowing. L4-L5: Disc and facet degeneration with grade 1 anterolisthesis of L4. Severe spinal canal stenosis. Severe right foraminal narrowing. Left foramen is patent. L5-S1: Disc and facet degeneration. No significant spinal canal stenosis. Moderate left foraminal narrowing. Mild right foraminal narrowing. Sacroiliac joints are normally aligned. IMPRESSION: 1. Acute or subacute compression fractures at L1 and L3 as detailed above, similar in appearance to 09/25/2024, but new from 02/24/2024. 2. Multilevel canal and foraminal narrowing as detailed above. Electronically signed by: Raoul Mari M.D. 10/07/24 21:[address] 10/07/24 19:31 Exam(s): CT T SPINE EXAM: CT Thoracic Spine Without Intravenous Contrast CLINICAL HISTORY: Reason for exam: low back pain, recent fx in spine. TECHNIQUE: Axial computed tomography images of the thoracic spine without intravenous contrast. CTDI is 21 mGy and DLP is 1288 mGy-cm. Automated exposure control was utilized for the study. A dose lowering technique was utilized adhering to the principles of ALARA. COMPARISON: No relevant prior studies available. FINDINGS: Vertebrae: No acute fracture. No traumatic subluxation. Discs/spinal canal/neural foramina: Lower thoracic disc degeneration. No spinal canal stenosis. Soft tissues: Unremarkable. IMPRESSION: No acute findings in the thoracic spine. Electronically signed by: Raoul Mari M.D. 10/07/24 21:56 PM Chest X-Ray 10/07/24 21:23 Exam(s): XR CXR 1 VIEW EXAM: XR Chest, 1 View CLINICAL HISTORY: Reason for exam: back pain. TECHNIQUE: Frontal view of the chest. COMPARISON: No relevant prior studies available. FINDINGS: Lungs: No consolidation. Pleural space: No significant pleural effusion. No pneumothorax. Heart: No cardiomegaly or pulmonary vascular congestion. Bones/joints: No acute fracture. No dislocation. Tubes, lines and devices: Left IJ approach port catheter with tip in the proximal SVC. IMPRESSION: No acute findings in the chest. Electronically signed by: Raoul Mari M.D. 10/07/24 21:57 PM KUB X-Ray 10/09/24 08:14 KUB HISTORY: abdominal pain COMPARISON STUDY: 10/07/2024 FINDINGS: Stable large calcification at the right renal collecting system. There is mild retained stool. No bowel obstruction seen. No gross free air. IMPRESSION: No acute findings. ACT 112: Negative or not required by law. The above report was generated using voice recognition software. It may contain grammatical, syntax or spelling errors. Electronically signed by: Joe Rivero M.D. 10/09/2024 9:13 AM Thoracic Spine MRI 10/12/24 17:30 MRI OF THE THORACIC SPINE WITHOUT IV CONTRAST CLINICAL HISTORY: Thoracic back pain. Clinical concern for infection. COMPARISON STUDY: CT of the thoracic spine dated 10/07/2024. TECHNIQUE: MRI of the thoracic spine is performed utilizing various T1 and T2- weighted sequences in axial and sagittal planes. IV contrast was not administered for this examination. The examination is compromised by motion artifact. FINDINGS: Vertebral body height and alignment are maintained throughout the thoracic spine. Marrow signal intensity is heterogeneous. There are compression deformities of L1 and L2 with marrow edema. Retropulsion of fragments is seen at L1. See report of today's lumbar spine MRI for detailed lumbar findings. There is no MRI evidence of acute or subacute fracture involving the thoracic spine. The spinous processes appear intact. No destructive bony lesion is clearly seen. A small hemangioma is incidentally noted in the body of T7. Tiny anterior os teophytes are seen throughout. Disc desiccation and mild loss of height is seen throughout the thoracic region. There is no disc herniation or central canal stenosis seen throughout the thoracic spine. The thoracic spinal cord is normal in morphology and signal intensity. There is no MRI evidence of significant high-grade neural foraminal stenosis throughout the thoracic region. This is suboptimally assessed due to motion artifact. There is fatty atrophy of the paraspinous musculature. Fluid collections within the psoas musculature in the lumbar region are discussed on today's lumbar spinal MRI. No pleural effusion is identified. IMPRESSION: 1. No acute bony abnormality is seen involving the thoracic spine. 2. There are compression deformities at L1 and L2 with corresponding marrow e lisa and fluid collections in the adjacent psoas musculature. See report of today's lumbar MRI for detailed findings. 3. There is no disc herniation or central canal stenosis throughout the thoracic region. Electronically signed by: Lit Franco M.D. 10/12/2024 2:[address] 10/13/24 11:04 CT GUIDED RIGHT PSOAS FLUID COLLECTION ASPIRATION CLINICAL HISTORY: Right psoas muscle fluid collection COMPARISON: MR lumbar spine PROCEDURE: Procedure and risks were explained. Informed consent was obtained. A final timeout was completed. The patient was placed in a prone position on the CT exam table. The lumbar region was prepped and draped in sterile fashion. 1% lidocaine was utilized for skin anesthesia. Utilizing CT guidance, a 20-gauge and 18-gauge Chiba needle was advanced into the right psoas muscle fluid collection. 2 aspirates yielding scant bloody particulate fluid was obtained and sent to the lab for culture analysis. The needle was removed and Band-Aid applied. The patient tolerated the procedure well. Vital signs will be monitored postprocedure. IMPRESSION: Right psoas muscle fluid collection aspiration as above. Performed, dictated, and signed by Abhi Rodriguez PA-C; to be co-signed by Dr. Lit Franco. Electronically signed by: Lit Franco M.D. 10/13/2024 2:27 PM Lumbar Spine MRI 10/26/24 07:38 MRI OF THE LUMBAR SPINE WITHOUT CONTRAST CLINICAL HISTORY: Follow-up compression fracture, fluid collections. COMPARISON STUDY: Lumbar spine MRI October 12, 2024. Lumbar spine CT October 07, 2024. TECHNIQUE: Utilizing a 3 Otilia magnet and dedicated coil, multiplanar, multiecho imaging of the lumbar spine was performed without IV contrast. FINDINGS: For purposes of numbering on this exam, the L5-S1 disc space is assigned to axial image 29 of 31. Anterolisthesis of L4 and L5 is unchanged. L1, L2 and L3 compression fractures are similar in appearance to MRI of October 12, 2024. These are likely subacute. Severe loss of height at the L1 level is unchanged. Retropulsion is again noted. Associated edema has slightly decreased. Retropulsion results in moderate central canal stenosis, mild improved since prior exam. Patent AP diameter canal is 9 mm. There is moderate loss of height of the L3 vertebral body and mild loss of height of the L2 vertebral body. There are no acute fractures. There is no intracanalicular mass or fluid collection. The conus terminates at the lower L1 level. Peripherally T2 hypointense collections within the bilateral psoas muscles with associated edema are again noted. The right psoas collection has decreased in size, now measuring 2 x 1.1 cm. The left psoas collection measures 0.9 cm, similar in size. No new collections are present. L1-2: Retropulsion results in moderate central canal stenosis, slightly improved. Moderate to severe bilateral neural foraminal stenosis is again noted. L2-3: There is disc bulge with facet arthrosis and ligamentous hypertrophy. There is mild narrowing of the central canal and both neural foramen, unchanged. L3-4: There is minimal disc bulge with facet arthrosis and ligamentous h ypertrophy. Central canal is patent. Moderate bilateral neural foraminal stenosis is unchanged. L4-5: Anterolisthesis is unchanged. There is facet arthrosis with ligamentous hypertrophy. Moderate central canal stenosis is unchanged. L5-S1: There is moderate facet arthrosis. There is mild disc bulge. The central canal is patent. Mild bilateral neural foraminal stenosis is unchanged. IMPRESSION: 1. No significant change in appearance of L1, L2 and L3 compression fractures since MRI of October 12, 2024. Stable retropulsion at the L1 level with interval decrease in associated edema. Slight improvement in moderate central canal stenosis at this level. 2. No acute lumbar spine fractures. 3. Redemonstration of intramuscular fluid collections within the bilateral psoas muscles. The right collection has mildly decreased in size. The small left collection is unchanged. These favor resolving hematomas. 4. Moderate multilevel degenerative disc disease and facet arthrosis within the lumbar spine, unchanged. ACT 112: Negative or not required by law. Electronically signed by: Caden Connolly M.D. 10/27/2024 4:19 PM Medications Administered Current Inpatient Medications Acetaminophen (Acetaminophen 500 Mg Tab) 1,000 mg PO Q8H [place] Stop: 11/22/24 09:59 Last Admin: 11/03/24 07:50 Dose: 1,000 mg Acyclovir (Acyclovir 400 Mg Tab) 400 mg PO BID [place] Stop: 11/07/24 08:59 Last Admin: 11/03/24 07:53 Dose: 400 mg Amlodipine Besylate (Amlodipine Besylate 5 Mg Tab) 5 mg PO QAM [place] Stop: 11/07/24 08:59 Last Admin: 11/03/24 07:52 Dose: 5 mg Atorvastatin Calcium (Atorvastatin 20 Mg Tab) 20 mg PO HS [place] Stop: 11/07/24 20:59 Last Admin: 10/10/24 21:08 Dose: 20 mg Citalopram Hydrobromide (Citalopram 20 Mg Tab) 20 mg PO QAM [place] Stop: 11/26/24 08:59 Last Admin: 11/03/24 07:53 Dose: 20 mg Cyanocobalamin (Cyanocobalamin (B-12) 500 Mcg Tablet) 1,000 mcg PO QAM [place] Stop: 11/21/24 09:59 Last Admin: 11/03/24 07:52 Dose: 1,000 mcg Dextrose (Dextrose 50% 50 Ml Syringe) 25 - 50 ml IV UD PRN; Protocol PRN Reason: Hypoglycemia Protocol Stop: 11/07/24 02:59 Enoxaparin Sodium (Enoxaparin Inj 40 Mg/0.4 Ml Syr) 40 mg SQ Q24H [place] Stop: 11/07/24 08:59 Last Admin: 11/03/24 07:51 Dose: 40 mg Glucagon (Glucagon For Inj 1 Mg Vial) 1 mg SQ UD PRN; Protocol PRN Reason: Hypoglycemia Protocol Stop: 11/07/24 02:59 Glucose (Glucose 40% Gel 15 Gm Tube) 15 - 30 gm PO UD PRN; Protocol PRN Reason: Hypoglycemia Protocol Stop: 11/07/24 02:59 Glucose (Glucose 10 Tab/Tube) 4 - 8 tab PO UD PRN; Protocol PRN Reason: Hypoglycemia Protocol Stop: 11/07/24 02:59 Heparin Sodium (Beef Lung) (Heparin 10 Unit/Ml 5 Ml Flush) 5 ml FLUSH PRN PRN PRN Reason: Flush Stop: 11/23/24 17:29 Last Admin: 11/03/24 05:53 Dose: 5 ml Heparin Sodium (Porcine) (Heparin 100 Unit/Ml 5ml Flush) 5 ml FLUSH PRN PRN PRN Reason: Flush Stop: 11/07/24 03:03 Last Admin: 10/23/24 19:43 Dose: 5 ml Vancomycin HCl 750 mg/ Sodium (Chloride) 265 mls @ 200 mls/hr IV Q8H [place] Stop: 12/03/24 23:59 Last Infusion: 11/03/24 08:11 Dose: Infused Insulin Aspart (Insulin Aspart Per Unit Charge) 0 units SC ACHS [facility] Stop: 11/13/24 05:59 Last Admin: 11/03/24 11:24 Dose: Not Given Lactobacillus Acidophilus (Advanced Probiotic 625 Mg Capsule) 1,250 mg PO DAILY [facility] Stop: 11/09/24 08:59 Last Admin: 11/03/24 07:51 Dose: 1,250 mg Levofloxacin (Levofloxacin 500 Mg Tab) 500 mg PO QAM [facility]; Protocol Stop: 11/07/24 08:59 Last Admin: 10/14/24 12:57 Dose: 500 mg Lidocaine (Lidocaine 5% 1 Patch) [facility] 11/07/24 08:59 Last Admin: 11/03/24 07:52 Dose: 1 patch Melatonin (Melatonin 3 Mg Tab) 3 mg PO HS PRN PRN Reason: Insomnia Stop: 11/07/24 03:07 Last Admin: 11/02/24 21:47 Dose: 3 mg Mirtazapine (Mirtazapine Tab 15 Mg Tab) 7.5 mg PO HS [place] Stop: 11/25/24 20:59 Last Admin: 11/02/24 21:49 Dose: 7.5 mg Miscellaneous (Carbohydrates For Hypoglycemia ) 15 - 30 gm PO UD PRN PRN Reason: Hypoglycemia Protocol Stop: 11/07/24 02:59 Miscellaneous (Remove Lidoderm Patch) 1 each N/A DAILY@2100 [facility] Stop: 11/07/24 20:59 Last Admin: 11/02/24 21:48 Dose: 1 each Miscellaneous Information (Vancomycin Consult Active) 1 each N/A UD PRN PRN Reason: Consult Stop: 11/15/24 13:04 Ondansetron HCl (Ondansetron Inj 2 Mg/Ml 2 Ml Vial) 4 mg IV Q6H PRN PRN Reason: Nausea And Vomiting Stop: 11/29/24 19:11 Oxycodone HCl (Oxycodone Hcl Ir 5 Mg Tab (Immediate Release)) 5 mg PO Q4 PRN PRN Reason: Severe Pain (Scale 7, 8, 9,10) Stop: 11/05/24 04:14 Last Admin: 11/03/24 11:57 Dose: 5 mg Oxycodone HCl (Oxycodone Hcl 15 Mg Tabcr (Oxycontin)) 15 mg PO Q12 [facility] Stop: 11/16/24 08:59 Last Admin: 11/03/24 07:50 Dose: 15 mg Polyethylene Glycol (Polyethylene (Miralax) 17 Gm Pack) 17 gm PO DAILY PRN PRN Reason: Constipation Stop: 11/07/24 02:59 Polyethylene Glycol (Polyethylene (Miralax) 17 Gm Pack) 17 gm PO QAM [facility] Stop: 11/19/24 08:59 Last Admin: 11/03/24 07:50 Dose: 17 gm Potassium Chloride (Potassium Chloride Crtab 20 Meq Tabcr) 20 meq PO DAILY [place] Stop: 11/27/24 08:59 Last Admin: 11/03/24 07:50 Dose: 20 meq Pregabalin (Pregabalin 25 Mg Cap) 25 mg PO TID [place] Stop: 11/30/24 08:59 Last Admin: 11/03/24 07:50 Dose: 25 mg Senna/Docusate Sodium (Docusate Sodium/Senna 50/8.6mg Tab) 1 tab PO BID [place] Stop: 11/07/24 08:59 Last Admin: 11/03/24 07:50 Dose: 1 tab Voriconazole (Voriconazole 200 Mg Tablet) 200 mg PO Q12 [place] Stop: 11/07/24 08:59 Last Admin: 11/03/24 07:51 Dose: 200 mg PG Care Time/CCT Total # of Minutes Spent Total Time Spent with Patient: Total time spent is greater than 50% in coordination of care (as documented) at patient's floor/unit and/or counseling patient: Coding [place] [address] SUB INP/OBS CARE 2/35MIN Patient Type Established History Expanded Problem Focused Exam Expanded Problem Focused Medical Decision Making Moderate Complexity Diagnoses Weakness generalized R53.1 Cancer related pain G89.3 Poor appetite R63.0 Palliative care by specialist Z51.5
[2024-11-04 06:36] LABS: Hematocrit (blood only) 24.5 % (37.0-47.0); Hemoglobin 7.8 g/dl (12.0-16.0); Mean Corpuscular Hemoglobin 32.4 pg (25.0-34.0); Mean Corpuscular Volume 101.7 fL (80.0-100.0); Platelet Count 172 K/uL (130-400); RDW Standard Deviation 63.4 fL (36.4-46.3); Red Blood Count 2.41 M/uL (4.20-5.40); White Blood Count 3.71 K/ul (4.8-10.8)
[2024-11-04 06:50] LABS: Alanine Aminotransferase 8.0 U/L (7-52); Albumin Globulin Ratio 1.0 (0.9-2); Alkaline Phosphatase 98.0 U/L (34-104); Anion Gap 6.0 (3-11); Bilirubin,Total 0.2 mg/dl (0.2-1.0); Blood Urea Nitrogen 8.0 mg/dl (6-23); Calcium 7.8 mg/dl (8.6-10.3); Carbon Dioxide 28.0 mmol/L (21-32); Chloride 108.0 mmol/L (98-107); Creatinine Clr Calc Pharmacy 129.9 ml/min; Globulin 2.6 gm/dl (2.5-4.0); Glucose 81.0 mg/dl (70-99(Fasting)); Potassium 3.2 mmol/L (3.5-5.1); Sodium 142.0 mmol/L (136-145); Total Protein 5.2 gm/dl (6.0-8.3)
[2024-11-04] MEDS: POTASSIUM CHLORIDE CRTAB 20 MEQ TABCR PO STA (08:30)
--- NOTE | 2024-11-04 13:18 | Hospitalist Progress Note ---
Date of Service November 04, 2024 Assessment & Plan (1) Severe back pain: Plan: 79 yo F with type 2 diabetes, dyslipidemia, paroxysmal SVT, hypertension, GERD, osteoarthritis of both knees, AML, generalized anxiety disorder, spinal stenosis of lumbar region, persistent insomnia who was recently in the hospital for lumbar spine compression fracture and discharged to rehab comes back with severe back pain. Chronic Pain Syndrome L1 and L3 compression fractures Bilateral iliopsoas muscle fluid collections, likely infected -Came in from rehab -CT scan done in the ER shows same L1 L3 compression fractures -MRI Lumbar spine reviewed: + fluid collections, edema iliopsoas, bilateral, likely infected -s/p IR drainage of lumbar spine, per ortho no surgical intervention -pain control is adequate at this time Plan: -ortho consult, appreciate recs -appreciate IR assistance with case -will need 6-8 weeks of IV vancomycin per ID, repeat MRI at end of treatment course -awaiting rehab placement, PICC line placed -continue oxycontin to 15mg bid based on 24 hour oxycodone need, continue pregablin 25 tid -continue oxycodone 5mg frequency prn to q4hrs -plan for discharge to SNF pending bed availability on 11/05/2024 -it is paramount that patient get to rehab as she needs to get stronger to be treatment candidate for AML therapies Staph epidermidis bacteremia, resolved -Initial blood culture (10/07): Staph epidermidis 1 out of 2 bottles -Repeat blood cultures (10/10): Staph epidermidis 1 out of 2 bottles -ID service recommends removal of indwelling port, port removed on 10/14 -third set of blood cultures (10/15): NEGATIVE Chronic Blood Loss Anemia AML undergoing chemotherapy History of pancytopenia -Hgb slowly dropping over coure -Currently undergoing monthly chemotherapy with decitabine/venetoclax -Last chemo was in August. -has missed doses of chemo at this point Plan: -Continue suppressive antibiotics Levaquin, voriconazole and acyclovir -continue acyclovir -trend Hgb today, may need transfusion before discharge Hypertension -Continue amlodipine Hyperlipidemia -On statin Anxiety/depression -Psych service consulted, appreciate recs -continue citalopram and mirtazapine Diabetes -Sliding scale for now Recent A port placement -port removed I spent a total of 45 minutes in direct patient care, including [id number] time with the patient and/or family, reviewing medical records, ordering and reviewing diagnostic tests, and coordinating care with other healthcare providers. This time includes: history taking, physical examination, medical decision making, counseling, ECG interpretation, imaging interpretation, lab interpretation, orders, and education, excluding time spent in the performance of separately billed services. Admission and Anticipated Discharge Date Admission Date: October 08, 2024 Subjective Patient seen and examined at bedside. Patient doing well today. Feels pain is generally well controlled. Review of Systems Review of Systems: CONSTITUTIONAL: weakness, improving EYES: Patient denies any visual symptoms. EARS, NOSE, AND THROAT: No difficulties with hearing. No symptoms of rhinitis or sore throat. CARDIOVASCULAR: Patient denies chest pains, palpitations, orthopnea and paroxysmal nocturnal dyspnea. RESPIRATORY: No dyspnea on exertion, no wheezing or cough. GI: No nausea, vomiting, diarrhea, constipation, abdominal pain, hematochezia or melena. : No urinary hesitancy or dribbling. No nocturia or urinary frequency. No abnormal urethral discharge. MUSCULOSKELETAL: lower back pain, improving NEUROLOGIC: No chronic headaches, no seizures. Patient denies numbness, tingling or weakness. PSYCHIATRIC: Patient denies problems with mood disturbance. No problems with anxiety. ENDOCRINE: No excessive urination or excessive thirst. DERMATOLOGIC: Patient denies any rashes or skin changes. Physical Exam Physical Exam: Gen: A&O 3 NAD HEENT: NCAT, EOMI, not icteric. External ears normal. No rhinorrhea. Moist mucous membranes. Neck: Supple, full range of motion, no observable masses, No meningeal sign. Lungs: No Respiratory distress. CV: RRR, no edema. Abdomen: Soft, nondistended, No rebound tenderness. MSK: tenderness in lower back to palpation improved from prior Skin: No rashes, petechiae, lesions. Normal color per patient. Neuro: Normal Gait, Grossly intact. Psych: Appropriate for situation. Results & Data Results & Data Vital Signs (Past 12 Hours) Vital Signs Temp Pulse Resp BP Pulse Ox O2 Del Method 11/04/24 07:35 36.8 C 80 16 126/68 91 Room Air Laboratory Results -personally reviewed, slow Hgb drop likely 2/2 frequent blood draws Medications Administered Acetaminophen (Acetaminophen 500 Mg Tab) 1,000 mg PO Q8H [place] Stop: 11/22/24 09:59 Last Admin: 11/04/24 10:23 Dose: 1,000 mg Documented By: Admin: 11/04/24 01:42 Dose: 1,000 mg Documented By: Admin: 11/03/24 17:18 Dose: 1,000 mg Documented By: Admin: 11/03/24 07:50 Dose: 1,000 mg Documented By: Admin: 11/03/24 02:15 Dose: 1,000 mg Documented By: Admin: 11/02/24 17:25 Dose: 1,000 mg Documented By: Admin: 11/02/24 09:04 Dose: 1,000 mg Documented By: Admin: 11/02/24 02:12 Dose: 1,000 mg Documented By: Admin: 11/01/24 18:07 Dose: 1,000 mg Documented By: Admin: 11/01/24 10:09 Dose: 1,000 mg Documented By: Admin: 11/01/24 01:02 Dose: 1,000 mg Documented By: Admin: 10/31/24 17:07 Dose: 1,000 mg Documented By: Admin: 10/31/24 11:06 Dose: 1,000 mg Documented By: Admin: 10/31/24 01:37 Dose: 1,000 mg Documented By: je Admin: 10/30/24 18:05 Dose: 1,000 mg Documented By: Admin: 10/30/24 09:01 Dose: 1,000 mg Documented By: Admin: 10/30/24 01:18 Dose: 1,000 mg Documented By: je Admin: 10/29/24 17:32 Dose: 1,000 mg Documented By: Admin: 10/29/24 10:30 Dose: 1,000 mg Documented By: Admin: 10/29/24 05:05 Dose: 1,000 mg Documented By: Admin: 10/29/24 02:16 Dose: Not Given Documented By: Admin: 10/28/24 17:57 Dose: 1,000 mg Documented By: Admin: 10/28/24 10:13 Dose: 1,000 mg Documented By: Admin: 10/28/24 01:23 Dose: 1,000 mg Documented By: Admin: 10/27/24 18:04 Dose: Not Given Documented By: cak Admin: 10/27/24 12:24 Dose: 1,000 mg Documented By: Admin: 10/27/24 01:07 Dose: 1,000 mg Documented By: Admin: 10/26/24 17:20 Dose: 1,000 mg Documented By: Admin: 10/26/24 10:05 Dose: 1,000 mg Documented By: Admin: 10/26/24 01:12 Dose: 1,000 mg Documented By: Admin: 10/25/24 17:16 Dose: 1,000 mg Documented By: Admin: 10/25/24 09:58 Dose: 1,000 mg Documented By: Admin: 10/25/24 01:00 Dose: 1,000 mg Documented By: Admin: 10/24/24 17:30 Dose: 1,000 mg Documented By: Admin: 10/24/24 10:00 Dose: 1,000 mg Documented By: Admin: 10/24/24 02:16 Dose: 1,000 mg Documented By: Admin: 10/23/24 18:00 Dose: 1,000 mg Documented By: Admin: 10/23/24 09:45 Dose: 1,000 mg Documented By: SHAWNA Acyclovir (Acyclovir 400 Mg Tab) 400 mg PO BID [place] Stop: 11/07/24 08:59 Last Admin: 11/04/24 07:47 Dose: 400 mg Documented By: Admin: 11/03/24 20:48 Dose: 400 mg Documented By: Admin: 11/03/24 07:53 Dose: 400 mg Documented By: Admin: 11/02/24 21:48 Dose: 400 mg Documented By: Admin: 11/02/24 09:05 Dose: 400 mg Documented By: Admin: 11/01/24 22:05 Dose: 400 mg Documented By: Admin: 11/01/24 07:54 Dose: 400 mg Documented By: RRValarie Admin: 10/31/24 21:05 Dose: 400 mg Documented By: Admin: 10/31/24 08:36 Dose: 400 mg Documented By: Admin: 10/30/24 21:00 Dose: 400 mg Documented By: je Admin: 10/30/24 09:02 Dose: 400 mg Documented By: Admin: 10/29/24 20:54 Dose: 400 mg Documented By: je Admin: 10/29/24 10:30 Dose: 400 mg Documented By: Admin: 10/28/24 19:40 Dose: 400 mg Documented By: Admin: 10/28/24 08:46 Dose: 400 mg Documented By: Admin: 10/27/24 20:10 Dose: 400 mg Documented By: Admin: 10/27/24 09:29 Dose: 400 mg Documented By: cak Admin: 10/26/24 21:08 Dose: 400 mg Documented By: Admin: 10/26/24 08:09 Dose: 400 mg Documented By: Admin: 10/25/24 21:56 Dose: 400 mg Documented By: Admin: 10/25/24 07:39 Dose: 400 mg Documented By: Admin: 10/24/24 21:16 Dose: 400 mg Documented By: Admin: 10/24/24 07:28 Dose: 400 mg Documented By: Admin: 10/23/24 19:42 Dose: 400 mg Documented By: Admin: 10/23/24 09:39 Dose: 400 mg Documented By: Admin: 10/22/24 21:26 Dose: 400 mg Documented By: Admin: 10/22/24 09:14 Dose: 400 mg Documented By: beny Admin: 10/21/24 20:37 Dose: 400 mg Documented By: je Admin: 10/21/24 07:47 Dose: 400 mg Documented By: Admin: 10/20/24 21:38 Dose: 400 mg Documented By: Admin: 10/20/24 07:53 Dose: 400 mg Documented By: Admin: 10/19/24 21:58 Dose: 400 mg Documented By: Admin: 10/19/24 08:12 Dose: 400 mg Documented By: Admin: 10/18/24 21:46 Dose: 400 mg Documented By: snc Admin: 10/18/24 08:11 Dose: 400 mg Documented By: Admin: 10/17/24 21:50 Dose: 400 mg Documented By: snc Admin: 10/17/24 08:57 Dose: 400 mg Documented By: Admin: 10/16/24 20:38 Dose: 400 mg Documented By: Admin: 10/16/24 09:17 Dose: 400 mg Documented By: Admin: 10/15/24 21:03 Dose: 400 mg Documented By: rodriguez Admin: 10/15/24 09:44 Dose: 400 mg Documented By: Admin: 10/14/24 20:19 Dose: 400 mg Documented By: Admin: 10/14/24 09:59 Dose: Not Given Documented By: Admin: 10/13/24 20:17 Dose: 400 mg Documented By: Admin: 10/13/24 08:45 Dose: 400 mg Documented By: Admin: 10/12/24 20:21 Dose: 400 mg Documented By: Admin: 10/12/24 09:03 Dose: 400 mg Documented By: Admin: 10/11/24 21:38 Dose: 400 mg Documented By: Admin: 10/11/24 09:05 Dose: 400 mg Documented By: baljitk Admin: 10/10/24 21:08 Dose: 400 mg Documented By: Admin: 10/10/24 08:52 Dose: 400 mg Documented By: baljitk Admin: 10/09/24 20:22 Dose: 400 mg Documented By: Admin: 10/09/24 09:50 Dose: 400 mg Documented By: Admin: 10/08/24 20:37 Dose: 400 mg Documented By: Admin: 10/08/24 08:34 Dose: 400 mg Documented By: HUNTER Amlodipine Besylate (Amlodipine Besylate 5 Mg Tab) 5 mg PO [facility] Stop: 11/07/24 08:59 Last Admin: 11/04/24 07:45 Dose: 5 mg Documented By: Admin: 11/03/24 07:52 Dose: 5 mg Documented By: Admin: 11/02/24 09:04 Dose: 5 mg Documented By: Admin: 11/01/24 07:54 Dose: 5 mg Documented By: Admin: 10/31/24 08:37 Dose: 5 mg Documented By: Admin: 10/30/24 09:02 Dose: 5 mg Documented By: Admin: 10/29/24 10:31 Dose: 5 mg Documented By: Admin: 10/28/24 08:46 Dose: 5 mg Documented By: Admin: 10/27/24 09:28 Dose: 5 mg Documented By: cak Admin: 10/26/24 08:09 Dose: 5 mg Documented By: Admin: 10/25/24 07:38 Dose: 5 mg Documented By: Admin: 10/24/24 07:28 Dose: 5 mg Documented By: Admin: 10/23/24 09:39 Dose: 5 mg Documented By: Admin: 10/22/24 09:15 Dose: 5 mg Documented By: wnt Admin: 10/21/24 07:33 Dose: 5 mg Documented By: Admin: 10/20/24 07:53 Dose: 5 mg Documented By: Admin: 10/19/24 08:12 Dose: 5 mg Documented By: Admin: 10/18/24 08:11 Dose: 5 mg Documented By: Admin: 10/17/24 08:57 Dose: 5 mg Documented By: Admin: 10/16/24 09:18 Dose: 5 mg Documented By: Admin: 10/15/24 09:43 Dose: 5 mg Documented By: Admin: 10/14/24 12:56 Dose: 5 mg Documented By: Admin: 10/13/24 08:45 Dose: 5 mg Documented By: Admin: 10/12/24 09:03 Dose: 5 mg Documented By: Admin: 10/11/24 09:05 Dose: 5 mg Documented By: cjk Admin: 10/10/24 08:52 Dose: 5 mg Documented By: cjk Admin: 10/09/24 09:51 Dose: 5 mg Documented By: Admin: 10/08/24 08:36 Dose: 5 mg Documented By: HUNTER Atorvastatin Calcium (Atorvastatin 20 Mg Tab) 20 mg PO HS [place] Stop: 11/07/24 20:59 Last Admin: 10/10/24 21:08 Dose: 20 mg Documented By: Admin: 10/09/24 20:22 Dose: 20 mg Documented By: Admin: 10/08/24 20:37 Dose: 20 mg Documented By: MARILEE Citalopram Hydrobromide (Citalopram 20 Mg Tab) 20 mg PO QAM [place] Stop: 11/26/24 08:59 Last Admin: 11/04/24 07:44 Dose: 20 mg Documented By: Admin: 11/03/24 07:53 Dose: 20 mg Documented By: Admin: 11/02/24 09:05 Dose: 20 mg Documented By: Admin: 11/01/24 07:54 Dose: 20 mg Documented By: Admin: 10/31/24 08:36 Dose: 20 mg Documented By: Admin: 10/30/24 09:02 Dose: 20 mg Documented By: Admin: 10/29/24 10:30 Dose: 20 mg Documented By: Admin: 10/28/24 08:46 Dose: 20 mg Documented By: Admin: 10/27/24 09:28 Dose: 20 mg Documented By: juliana Cyanocobalamin (Cyanocobalamin (B-12) 500 Mcg Tablet) 1,000 mcg PO QAM [place] Stop: 11/21/24 09:59 Last Admin: 11/04/24 07:45 Dose: 1,000 mcg Documented By: Admin: 11/03/24 07:52 Dose: 1,000 mcg Documented By: Admin: 11/02/24 09:04 Dose: 1,000 mcg Documented By: Admin: 11/01/24 07:54 Dose: 1,000 mcg Documented By: Admin: 10/31/24 08:36 Dose: 1,000 mcg Documented By: Admin: 10/30/24 09:02 Dose: 1,000 mcg Documented By: Admin: 10/29/24 10:31 Dose: 1,000 mcg Documented By: Admin: 10/28/24 08:47 Dose: 1,000 mcg Documented By: Admin: 10/27/24 09:28 Dose: 1,000 mcg Documented By: juliana Admin: 10/26/24 08:09 Dose: 1,000 mcg Documented By: Admin: 10/25/24 07:38 Dose: 1,000 mcg Documented By: Admin: 10/24/24 07:29 Dose: 1,000 mcg Documented By: Admin: 10/23/24 09:40 Dose: 1,000 mcg Documented By: Admin: 10/22/24 11:48 Dose: Not Given Documented By: NISA Enoxaparin Sodium (Enoxaparin Inj 40 Mg/0.4 Ml Syr) 40 mg SQ Q24H [place] Stop: 11/07/24 08:59 Last Admin: 11/04/24 07:43 Dose: 40 mg Documented By: Admin: 11/03/24 07:51 Dose: 40 mg Documented By: Admin: 11/02/24 09:05 Dose: 40 mg Documented By: Admin: 11/01/24 07:55 Dose: 40 mg Documented By: Admin: 10/31/24 08:37 Dose: 40 mg Documented By: Admin: 10/30/24 09:02 Dose: 40 mg Documented By: Admin: 10/29/24 10:31 Dose: 40 mg Documented By: Admin: 10/28/24 08:46 Dose: 40 mg Documented By: Admin: 10/27/24 09:29 Dose: 40 mg Documented By: juliana Admin: 10/26/24 08:03 Dose: Not Given Documented By: Admin: 10/25/24 07:39 Dose: Not Given Documented By: Admin: 10/13/24 08:46 Dose: Not Given Documented By: Admin: 10/12/24 09:04 Dose: 40 mg Documented By: Admin: 10/11/24 09:06 Dose: 40 mg Documented By: baljitk Admin: 10/10/24 08:52 Dose: 40 mg Documented By: baljitk Admin: 10/09/24 09:51 Dose: 40 mg Documented By: Admin: 10/08/24 08:37 Dose: 40 mg Documented By: SLPrasanth Heparin Sodium (Beef Lung) (Heparin 10 Unit/Ml 5 Ml Flush) 5 ml FLUSH PRN PRN PRN Reason: Flush Stop: 11/23/24 17:29 Last Admin: 11/03/24 22:16 Dose: 5 ml Documented By: Admin: 11/03/24 05:53 Dose: 5 ml Documented By: Admin: 11/02/24 21:46 Dose: 5 ml Documented By: Admin: 11/02/24 15:50 Dose: 5 ml Documented By: Admin: 10/31/24 22:40 Dose: 5 ml Documented By: Admin: 10/31/24 05:37 Dose: 5 ml Documented By: Admin: 10/30/24 05:50 Dose: 5 ml Documented By: Admin: 10/29/24 05:20 Dose: 5 ml Documented By: Admin: 10/28/24 05:28 Dose: 5 ml Documented By: Admin: 10/27/24 20:13 Dose: 5 ml Documented By: Admin: 10/27/24 02:19 Dose: 5 ml Documented By: Admin: 10/26/24 08:08 Dose: 5 ml Documented By: Admin: 10/25/24 22:00 Dose: 5 ml Documented By: Admin: 10/24/24 18:55 Dose: 5 ml Documented By: LMC Heparin Sodium (Porcine) (Heparin 100 Unit/Ml 5ml Flush) 5 ml FLUSH PRN PRN PRN Reason: Flush Stop: 11/07/24 03:03 Last Admin: 10/23/24 19:43 Dose: 5 ml Documented By: Admin: 10/12/24 05:22 Dose: 5 ml Documented By: Admin: 10/09/24 10:11 Dose: 5 ml Documented By: ARTEMIO Vancomycin HCl 750 mg/ Sodium (Chloride) 265 mls @ 200 mls/hr IV Q8H [place] Stop: 12/03/24 23:59 Last Infusion: 11/04/24 07:16 Dose: Infused Documented By: Admin: 11/04/24 05:52 Dose: 200 mls/hr Documented By: Infusion: 11/03/24 22:08 Dose: Infused Documented By: Admin: 11/03/24 20:48 Dose: 200 mls/hr Documented By: Infusion: 11/03/24 15:25 Dose: Infused Documented By: Admin: 11/03/24 13:59 Dose: 200 mls/hr Documented By: Infusion: 11/03/24 08:11 Dose: Infused Documented By: Admin: 11/03/24 05:53 Dose: 200 mls/hr Documented By: Infusion: 11/02/24 23:52 Dose: Infused Documented By: Admin: 11/02/24 21:46 Dose: 200 mls/hr Documented By: Infusion: 11/02/24 15:49 Dose: Infused Documented By: Admin: 11/02/24 14:23 Dose: 200 mls/hr Documented By: Infusion: 11/02/24 06:38 Dose: Infused Documented By: Admin: 11/02/24 05:01 Dose: 200 mls/hr Documented By: Infusion: 11/01/24 23:44 Dose: Infused Documented By: Admin: 11/01/24 22:18 Dose: 200 mls/hr Documented By: Infusion: 11/01/24 15:18 Dose: Infused Documented By: Admin: 11/01/24 13:25 Dose: 200 mls/hr Documented By: Infusion: 11/01/24 07:52 Dose: Infused Documented By: Admin: 11/01/24 06:07 Dose: 200 mls/hr Documented By: Infusion: 10/31/24 22:31 Dose: Infused Documented By: Admin: 10/31/24 21:11 Dose: 200 mls/hr Documented By: Infusion: 10/31/24 16:04 Dose: Infused Documented By: Admin: 10/31/24 14:40 Dose: 200 mls/hr Documented By: Infusion: 10/31/24 07:30 Dose: Infused Documented By: Admin: 10/31/24 05:37 Dose: 200 mls/hr Documented By: Infusion: 10/30/24 22:53 Dose: Infused Documented By: Admin: 10/30/24 21:06 Dose: 200 mls/hr Documented By: jjg Infusion: 10/30/24 16:06 Dose: Infused Documented By: Admin: 10/30/24 14:31 Dose: 200 mls/hr Documented By: Infusion: 10/30/24 07:22 Dose: Infused Documented By: Admin: 10/30/24 05:52 Dose: 200 mls/hr Documented By: jjg Infusion: 10/29/24 22:37 Dose: Infused Documented By: jjg Admin: 10/29/24 21:00 Dose: 200 mls/hr Documented By: jjg Infusion: 10/29/24 16:06 Dose: Infused Documented By: cak Admin: 10/29/24 14:36 Dose: 200 mls/hr Documented By: Infusion: 10/29/24 06:47 Dose: Infused Documented By: Admin: 10/29/24 05:06 Dose: 200 mls/hr Documented By: Infusion: 10/29/24 00:05 Dose: Infused Documented By: Admin: 10/28/24 22:45 Dose: 200 mls/hr Documented By: Infusion: 10/28/24 15:47 Dose: Infused Documented By: Admin: 10/28/24 14:27 Dose: 200 mls/hr Documented By: Infusion: 10/28/24 07:07 Dose: Infused Documented By: Admin: 10/28/24 05:28 Dose: 200 mls/hr Documented By: Infusion: 10/28/24 00:10 Dose: Infused Documented By: Admin: 10/27/24 22:50 Dose: 200 mls/hr Documented By: Infusion: 10/27/24 16:18 Dose: Infused Documented By: Admin: 10/27/24 14:17 Dose: 200 mls/hr Documented By: ADB Insulin Aspart (Insulin Aspart Per Unit Charge) 0 units SC ACHS [place] Stop: 11/13/24 05:59 Last Admin: 11/04/24 11:26 Dose: Not Given Documented By: Admin: 11/04/24 07:55 Dose: Not Given Documented By: Admin: 11/03/24 20:53 Dose: Not Given Documented By: Admin: 11/03/24 16:58 Dose: Not Given Documented By: Admin: 11/03/24 11:24 Dose: Not Given Documented By: Admin: 11/03/24 07:55 Dose: Not Given Documented By: Admin: 11/02/24 21:48 Dose: Not Given Documented By: Admin: 11/02/24 16:37 Dose: Not Given Documented By: Admin: 11/02/24 11:33 Dose: Not Given Documented By: Admin: 11/02/24 07:55 Dose: Not Given Documented By: Admin: 11/01/24 23:57 Dose: Not Given Documented By: LRA Co-signed By: ALW Admin: 11/01/24 16:53 Dose: Not Given Documented By: Admin: 11/01/24 11:47 Dose: Not Given Documented By: Admin: 11/01/24 07:52 Dose: Not Given Documented By: Admin: 11/01/24 00:06 Dose: Not Given Documented By: EM Co-signed By: SW Admin: 10/31/24 16:59 Dose: Not Given Documented By: Admin: 10/31/24 12:07 Dose: Not Given Documented By: Admin: 10/31/24 09:23 Dose: Not Given Documented By: Admin: 10/30/24 21:00 Dose: Not Given Documented By: je Co-signed By: HLJ Admin: 10/30/24 17:02 Dose: Not Given Documented By: Admin: 10/30/24 12:09 Dose: Not Given Documented By: Admin: 10/30/24 07:43 Dose: Not Given Documented By: Admin: 10/29/24 20:55 Dose: Not Given Documented By: je Co-signed By: HLBob Admin: 10/29/24 16:58 Dose: Not Given Documented By: Admin: 10/29/24 11:27 Dose: Not Given Documented By: Admin: 10/29/24 09:01 Dose: Not Given Documented By: Admin: 10/28/24 20:37 Dose: Not Given Documented By: Admin: 10/28/24 16:37 Dose: Not Given Documented By: Admin: 10/28/24 12:04 Dose: Not Given Documented By: Admin: 10/28/24 07:55 Dose: Not Given Documented By: Admin: 10/27/24 20:16 Dose: Not Given Documented By: Admin: 10/27/24 16:47 Dose: Not Given Documented By: juliana Co-signed By: DANUTA Admin: 10/27/24 12:31 Dose: Not Given Documented By: DANUTA Co-signed By: [email or web address] Admin: 10/27/24 09:36 Dose: Not Given Documented By: juliana Co-signed By: MENAB Admin: 10/26/24 21:00 Dose: Not Given Documented By: Admin: 10/26/24 17:00 Dose: Not Given Documented By: Admin: 10/26/24 11:58 Dose: Not Given Documented By: Admin: 10/26/24 07:37 Dose: Not Given Documented By: Admin: 10/25/24 21:03 Dose: Not Given Documented By: Admin: 10/25/24 16:49 Dose: Not Given Documented By: Admin: 10/25/24 11:59 Dose: Not Given Documented By: Admin: 10/25/24 08:31 Dose: Not Given Documented By: Admin: 10/24/24 20:58 Dose: Not Given Documented By: Admin: 10/24/24 17:31 Dose: Not Given Documented By: LMC Co-signed By: KS Admin: 10/24/24 12:26 Dose: Not Given Documented By: LMC Co-signed By: KS Admin: 10/24/24 07:33 Dose: Not Given Documented By: LMC Co-signed By: MRE Admin: 10/23/24 20:29 Dose: Not Given Documented By: Admin: 10/23/24 16:37 Dose: Not Given Documented By: LMC Co-signed By: MRE Admin: 10/23/24 11:42 Dose: Not Given Documented By: LMC Co-signed By: ASIF Admin: 10/23/24 08:27 Dose: Not Given Documented By: LMC Co-signed By: MPS Admin: 10/22/24 21:19 Dose: Not Given Documented By: ERIC Co-signed By: SESAR Admin: 10/22/24 17:22 Dose: Not Given Documented By: Admin: 10/22/24 11:36 Dose: Not Given Documented By: NISA Co-signed By: beny Admin: 10/22/24 09:12 Dose: Not Given Documented By: beny Co-signed By: NISA Admin: 10/21/24 20:38 Dose: Not Given Documented By: jmk Co-signed By: JULIEN Admin: 10/21/24 16:44 Dose: Not Given Documented By: Admin: 10/21/24 11:36 Dose: Not Given Documented By: Admin: 10/21/24 07:32 Dose: Not Given Documented By: Admin: 10/20/24 20:41 Dose: Not Given Documented By: Admin: 10/20/24 16:47 Dose: Not Given Documented By: Admin: 10/20/24 11:42 Dose: Not Given Documented By: Admin: 10/20/24 07:46 Dose: Not Given Documented By: Admin: 10/19/24 21:15 Dose: Not Given Documented By: Admin: 10/19/24 17:23 Dose: Not Given Documented By: LMC Co-signed By: AA Admin: 10/19/24 12:32 Dose: Not Given Documented By: LMC Co-signed By: AAH Admin: 10/19/24 07:41 Dose: Not Given Documented By: LMC Co-signed By: AAH Admin: 10/18/24 21:15 Dose: Not Given Documented By: snc Co-signed By: ANS Admin: 10/18/24 17:04 Dose: Not Given Documented By: LMC Co-signed By: AAH Admin: 10/18/24 11:58 Dose: Not Given Documented By: LMC Co-signed By: CSE Admin: 10/18/24 08:18 Dose: Not Given Documented By: LMC Co-signed By: VGS Admin: 10/17/24 21:36 Dose: Not Given Documented By: Admin: 10/17/24 17:45 Dose: Not Given Documented By: Admin: 10/17/24 12:08 Dose: Not Given Documented By: Admin: 10/17/24 08:58 Dose: Not Given Documented By: Admin: 10/16/24 20:46 Dose: Not Given Documented By: Admin: 10/16/24 17:06 Dose: Not Given Documented By: Admin: 10/16/24 12:00 Dose: Not Given Documented By: Admin: 10/16/24 09:14 Dose: Not Given Documented By: Admin: 10/15/24 21:06 Dose: Not Given Documented By: ksy Co-signed By: TERI Admin: 10/15/24 17:11 Dose: Not Given Documented By: DMH Co-signed By: KS Admin: 10/15/24 11:33 Dose: Not Given Documented By: DMH Co-signed By: AA Admin: 10/15/24 09:14 Dose: Not Given Documented By: DMH Co-signed By: GMW Admin: 10/14/24 20:39 Dose: Not Given Documented By: Admin: 10/14/24 16:50 Dose: Not Given Documented By: EW Lactobacillus Acidophilus (Advanced Probiotic 625 Mg Capsule) 1,250 mg PO DAILY [place] Stop: 11/09/24 08:59 Last Admin: 11/04/24 07:43 Dose: 1,250 mg Documented By: Admin: 11/03/24 07:51 Dose: 1,250 mg Documented By: Admin: 11/02/24 09:04 Dose: 1,250 mg Documented By: Admin: 11/01/24 07:54 Dose: 1,250 mg Documented By: RRValarie Admin: 10/31/24 08:36 Dose: 1,250 mg Documented By: Admin: 10/30/24 09:02 Dose: 1,250 mg Documented By: Admin: 10/29/24 10:30 Dose: 1,250 mg Documented By: Admin: 10/28/24 08:46 Dose: 1,250 mg Documented By: Admin: 10/27/24 09:28 Dose: 1,250 mg Documented By: juliana Admin: 10/26/24 08:09 Dose: 1,250 mg Documented By: K Admin: 10/25/24 07:38 Dose: 1,250 mg Documented By: Admin: 10/24/24 07:29 Dose: 1,250 mg Documented By: Admin: 10/23/24 09:41 Dose: 1,250 mg Documented By: Admin: 10/22/24 09:14 Dose: 1,250 mg Documented By: [email or web address] Admin: 10/21/24 07:34 Dose: 1,250 mg Documented By: Admin: 10/20/24 07:53 Dose: 1,250 mg Documented By: Admin: 10/19/24 08:13 Dose: 1,250 mg Documented By: Admin: 10/18/24 08:12 Dose: 1,250 mg Documented By: Admin: 10/17/24 08:57 Dose: 1,250 mg Documented By: Admin: 10/16/24 12:23 Dose: Not Given Documented By: Admin: 10/15/24 09:43 Dose: 1,250 mg Documented By: Admin: 10/14/24 12:55 Dose: 1,250 mg Documented By: Admin: 10/13/24 08:44 Dose: 1,250 mg Documented By: Admin: 10/12/24 09:02 Dose: 1,250 mg Documented By: Admin: 10/11/24 09:06 Dose: 1,250 mg Documented By: rhonda Admin: 10/10/24 08:52 Dose: 1,250 mg Documented By: rhonda Levofloxacin (Levofloxacin 500 Mg Tab) 500 mg PO [facility]; Protocol Stop: 11/07/24 08:59 Last Admin: 10/14/24 12:57 Dose: 500 mg Documented By: Admin: 10/13/24 08:44 Dose: 500 mg Documented By: Admin: 10/12/24 09:02 Dose: 500 mg Documented By: Admin: 10/11/24 09:06 Dose: 500 mg Documented By: rhonda Admin: 10/10/24 08:52 Dose: 500 mg Documented By: rhonda Admin: 10/09/24 09:54 Dose: 500 mg Documented By: Admin: 10/08/24 08:36 Dose: 500 mg Documented By: HUNTER Lidocaine (Lidocaine 5% 1 Patch) 1 patch TD [facility] Stop: 11/07/24 08:59 Last Admin: 11/04/24 07:46 Dose: 1 patch Documented By: Admin: 11/03/24 07:52 Dose: 1 patch Documented By: Admin: 11/02/24 09:05 Dose: 1 patch Documented By: Admin: 11/01/24 07:53 Dose: 1 patch Documented By: Admin: 10/31/24 08:37 Dose: 1 patch Documented By: Admin: 10/30/24 09:03 Dose: 1 patch Documented By: Admin: 10/29/24 10:25 Dose: 1 patch Documented By: Admin: 10/28/24 07:37 Dose: 1 patch Documented By: Admin: 10/27/24 09:27 Dose: 1 patch Documented By: juliana Admin: 10/26/24 10:00 Dose: Not Given Documented By: Admin: 10/25/24 07:39 Dose: 1 patch Documented By: Admin: 10/24/24 07:29 Dose: 1 patch Documented By: Admin: 10/23/24 09:41 Dose: 1 patch Documented By: Admin: 10/22/24 09:19 Dose: 1 patch Documented By: beny Admin: 10/21/24 07:35 Dose: 1 patch Documented By: Admin: 10/20/24 08:00 Dose: 1 patch Documented By: Admin: 10/19/24 08:13 Dose: Not Given Documented By: Admin: 10/18/24 08:12 Dose: Not Given Documented By: Admin: 10/17/24 09:00 Dose: Not Given Documented By: Admin: 10/16/24 17:08 Dose: Not Given Documented By: Admin: 10/15/24 10:23 Dose: Not Given Documented By: Admin: 10/14/24 12:12 Dose: Not Given Documented By: Admin: 10/13/24 08:46 Dose: Not Given Documented By: Admin: 10/12/24 09:04 Dose: 1 patch Documented By: Admin: 10/11/24 09:26 Dose: Not Given Documented By: rhonda Admin: 10/10/24 08:53 Dose: 1 patch Documented By: cjk Admin: 10/09/24 12:52 Dose: 1 patch Documented By: Admin: 10/08/24 08:36 Dose: 1 patch Documented By: SLH Melatonin (Melatonin 3 Mg Tab) 3 mg PO HS PRN PRN Reason: Insomnia Stop: 11/07/24 03:07 Last Admin: 11/03/24 20:48 Dose: 3 mg Documented By: Admin: 11/02/24 21:47 Dose: 3 mg Documented By: Admin: 10/28/24 19:40 Dose: 3 mg Documented By: Admin: 10/27/24 20:09 Dose: 3 mg Documented By: Admin: 10/26/24 21:15 Dose: 3 mg Documented By: Admin: 10/25/24 22:00 Dose: 3 mg Documented By: Admin: 10/24/24 21:17 Dose: 3 mg Documented By: Admin: 10/23/24 19:41 Dose: 3 mg Documented By: Admin: 10/22/24 21:25 Dose: 3 mg Documented By: Admin: 10/20/24 21:39 Dose: 3 mg Documented By: Admin: 10/19/24 21:58 Dose: 3 mg Documented By: Admin: 10/18/24 21:46 Dose: 3 mg Documented By: snc Admin: 10/17/24 21:48 Dose: 3 mg Documented By: kerry Admin: 10/16/24 22:47 Dose: 3 mg Documented By: MARILOU Mirtazapine (Mirtazapine Tab 15 Mg Tab) 7.5 mg PO HS [place] Stop: 11/25/24 20:59 Last Admin: 11/03/24 20:48 Dose: 7.5 mg Documented By: Admin: 11/02/24 21:49 Dose: 7.5 mg Documented By: Admin: 11/01/24 22:06 Dose: 7.5 mg Documented By: Admin: 10/31/24 21:04 Dose: 7.5 mg Documented By: Admin: 10/30/24 21:02 Dose: 7.5 mg Documented By: je Admin: 10/29/24 20:54 Dose: 7.5 mg Documented By: je Admin: 10/28/24 19:41 Dose: 7.5 mg Documented By: Admin: 10/27/24 20:11 Dose: 7.5 mg Documented By: Admin: 10/26/24 21:09 Dose: 7.5 mg Documented By: NESTOR Miscellaneous (Remove Lidoderm Patch) 1 each N/A DAILY@2100 [facility] Stop: 11/07/24 20:59 Last Admin: 11/03/24 20:48 Dose: 1 each Documented By: Admin: 11/02/24 21:48 Dose: 1 each Documented By: Admin: 11/01/24 22:07 Dose: 1 each Documented By: Admin: 10/31/24 21:05 Dose: 1 each Documented By: Admin: 10/30/24 20:59 Dose: 1 each Documented By: je Admin: 10/29/24 20:58 Dose: 1 each Documented By: je Admin: 10/28/24 19:41 Dose: 1 each Documented By: Admin: 10/27/24 20:11 Dose: 1 each Documented By: Admin: 10/26/24 21:10 Dose: Not Given Documented By: Admin: 10/25/24 21:56 Dose: 1 each Documented By: Admin: 10/24/24 21:17 Dose: 1 each Documented By: Admin: 10/23/24 19:44 Dose: 1 each Documented By: Admin: 10/22/24 21:27 Dose: 1 each Documented By: Admin: 10/21/24 22:01 Dose: Not Given Documented By: je Admin: 10/20/24 21:46 Dose: 1 each Documented By: Admin: 10/19/24 21:58 Dose: 1 each Documented By: Admin: 10/18/24 22:29 Dose: Not Given Documented By: snc Admin: 10/17/24 21:07 Dose: Not Given Documented By: Admin: 10/16/24 20:39 Dose: 1 each Documented By: Admin: 10/15/24 21:19 Dose: Not Given Documented By: rodriguez Admin: 10/14/24 20:39 Dose: Not Given Documented By: Admin: 10/13/24 20:17 Dose: Not Given Documented By: Admin: 10/12/24 20:27 Dose: Not Given Documented By: Admin: 10/11/24 21:34 Dose: 1 each Documented By: Admin: 10/10/24 21:08 Dose: 1 each Documented By: Admin: 10/09/24 20:22 Dose: 1 each Documented By: Admin: 10/08/24 20:40 Dose: 1 each Documented By: MARILEE Oxycodone HCl (Oxycodone Hcl Ir 5 Mg Tab (Immediate Release)) 5 mg PO Q4 PRN PRN Reason: Severe Pain (Scale 7, 8, 9,10) Stop: 11/05/24 04:14 Last Admin: 11/03/24 11:57 Dose: 5 mg Documented By: Admin: 11/02/24 04:55 Dose: 5 mg Documented By: Admin: 11/01/24 16:22 Dose: 5 mg Documented By: Admin: 11/01/24 11:50 Dose: 5 mg Documented By: Admin: 10/31/24 12:09 Dose: 5 mg Documented By: TERRIE Oxycodone HCl (Oxycodone Hcl 15 Mg Tabcr (Oxycontin)) 15 mg PO Q12 [place] Stop: 11/16/24 08:59 Last Admin: 11/04/24 07:52 Dose: 15 mg Documented By: Admin: 11/03/24 20:48 Dose: 15 mg Documented By: Admin: 11/03/24 07:50 Dose: 15 mg Documented By: Admin: 11/02/24 21:47 Dose: 15 mg Documented By: Admin: 11/02/24 09:05 Dose: 15 mg Documented By: BALJINDER Polyethylene Glycol (Polyethylene (Miralax) 17 Gm Pack) 17 gm PO QAM [place] Stop: 11/19/24 08:59 Last Admin: 11/04/24 07:51 Dose: 17 gm Documented By: Admin: 11/03/24 07:50 Dose: 17 gm Documented By: Admin: 11/02/24 09:05 Dose: 17 gm Documented By: Admin: 11/01/24 07:55 Dose: 17 gm Documented By: Admin: 10/31/24 08:42 Dose: 17 gm Documented By: Admin: 10/30/24 09:01 Dose: 17 gm Documented By: Admin: 10/29/24 10:25 Dose: 17 gm Documented By: Admin: 10/28/24 08:46 Dose: 17 gm Documented By: Admin: 10/27/24 12:24 Dose: Not Given Documented By: Admin: 10/26/24 08:03 Dose: Not Given Documented By: Admin: 10/25/24 07:46 Dose: Not Given Documented By: Admin: 10/24/24 07:30 Dose: 17 gm Documented By: Admin: 10/23/24 09:41 Dose: 17 gm Documented By: Admin: 10/22/24 09:23 Dose: 17 gm Documented By: beny Admin: 10/21/24 07:35 Dose: Not Given Documented By: Admin: 10/20/24 07:52 Dose: 17 gm Documented By: FILI Potassium Chloride (Potassium Chloride Crtab 20 Meq Tabcr) 20 meq PO DAILY [place] Stop: 11/27/24 08:59 Last Admin: 11/04/24 07:52 Dose: 20 meq Documented By: Admin: 11/03/24 07:50 Dose: 20 meq Documented By: Admin: 11/02/24 09:04 Dose: 20 meq Documented By: Admin: 11/01/24 07:55 Dose: 20 meq Documented By: Admin: 10/31/24 08:36 Dose: 20 meq Documented By: Admin: 10/30/24 09:01 Dose: 20 meq Documented By: Admin: 10/29/24 10:30 Dose: 20 meq Documented By: Admin: 10/28/24 08:46 Dose: 20 meq Documented By: BECCA Pregabalin (Pregabalin 25 Mg Cap) 25 mg PO TID [place] Stop: 11/30/24 08:59 Last Admin: 11/04/24 07:52 Dose: 25 mg Documented By: Admin: 11/03/24 20:48 Dose: 25 mg Documented By: Admin: 11/03/24 13:59 Dose: 25 mg Documented By: Admin: 11/03/24 07:50 Dose: 25 mg Documented By: Admin: 11/02/24 21:47 Dose: 25 mg Documented By: Admin: 11/02/24 14:23 Dose: 25 mg Documented By: Admin: 11/02/24 09:05 Dose: 25 mg Documented By: Admin: 11/01/24 22:06 Dose: 25 mg Documented By: Admin: 11/01/24 13:25 Dose: 25 mg Documented By: Admin: 11/01/24 07:55 Dose: 25 mg Documented By: Admin: 10/31/24 21:04 Dose: 25 mg Documented By: Admin: 10/31/24 13:32 Dose: 25 mg Documented By: Admin: 10/31/24 08:36 Dose: 25 mg Documented By: TERRIE Senna/Docusate Sodium (Docusate Sodium/Senna 50/8.6mg Tab) 1 tab PO BID [place] Stop: 11/07/24 08:59 Last Admin: 11/04/24 07:52 Dose: 1 tab Documented By: Admin: 11/03/24 20:48 Dose: 1 tab Documented By: Admin: 11/03/24 07:50 Dose: 1 tab Documented By: Admin: 11/02/24 21:51 Dose: 1 tab Documented By: Admin: 11/02/24 09:05 Dose: 1 tab Documented By: Admin: 11/01/24 22:06 Dose: 1 tab Documented By: Admin: 11/01/24 07:54 Dose: 1 tab Documented By: Admin: 10/31/24 21:04 Dose: 1 tab Documented By: Admin: 10/31/24 08:37 Dose: 1 tab Documented By: Admin: 10/30/24 20:58 Dose: Not Given Documented By: jmk Admin: 10/30/24 09:01 Dose: 1 tab Documented By: Admin: 10/29/24 20:57 Dose: Not Given Documented By: jmk Admin: 10/29/24 10:30 Dose: 1 tab Documented By: Admin: 10/28/24 19:40 Dose: 1 tab Documented By: Admin: 10/28/24 08:46 Dose: 1 tab Documented By: Admin: 10/27/24 20:10 Dose: Not Given Documented By: Admin: 10/27/24 12:24 Dose: Not Given Documented By: Admin: 10/26/24 21:08 Dose: Not Given Documented By: Admin: 10/26/24 08:02 Dose: Not Given Documented By: Admin: 10/25/24 22:00 Dose: 1 tab Documented By: Admin: 10/25/24 07:38 Dose: 1 tab Documented By: Admin: 10/24/24 21:17 Dose: 1 tab Documented By: Admin: 10/24/24 07:29 Dose: 1 tab Documented By: Admin: 10/23/24 19:40 Dose: 1 tab Documented By: Admin: 10/23/24 09:40 Dose: 1 tab Documented By: Admin: 10/22/24 21:25 Dose: 1 tab Documented By: Admin: 10/22/24 09:27 Dose: Not Given Documented By: beny Admin: 10/21/24 20:37 Dose: 1 tab Documented By: jmk Admin: 10/21/24 07:44 Dose: 1 tab Documented By: Admin: 10/20/24 21:40 Dose: 1 tab Documented By: Admin: 10/20/24 07:52 Dose: 1 tab Documented By: Admin: 10/19/24 21:58 Dose: 1 tab Documented By: Admin: 10/19/24 08:14 Dose: 1 tab Documented By: Admin: 10/18/24 21:42 Dose: Not Given Documented By: snc Admin: 10/18/24 08:12 Dose: Not Given Documented By: Admin: 10/17/24 21:51 Dose: Not Given Documented By: snc Admin: 10/17/24 09:00 Dose: Not Given Documented By: Admin: 10/16/24 20:38 Dose: 1 tab Documented By: ALVic Admin: 10/16/24 12:23 Dose: Not Given Documented By: Admin: 10/15/24 21:19 Dose: Not Given Documented By: ksy Admin: 10/15/24 09:42 Dose: Not Given Documented By: Admin: 10/14/24 20:19 Dose: Not Given Documented By: Admin: 10/14/24 09:59 Dose: Not Given Documented By: Admin: 10/13/24 20:17 Dose: 1 tab Documented By: Admin: 10/13/24 08:44 Dose: 1 tab Documented By: Admin: 10/12/24 20:21 Dose: 1 tab Documented By: Admin: 10/12/24 09:00 Dose: 1 tab Documented By: Admin: 10/11/24 21:39 Dose: Not Given Documented By: Admin: 10/11/24 07:57 Dose: Not Given Documented By: rhonda Admin: 10/10/24 20:36 Dose: Not Given Documented By: Admin: 10/10/24 08:52 Dose: 1 tab Documented By: rhonda Admin: 10/09/24 20:18 Dose: 1 tab Documented By: Admin: 10/09/24 10:11 Dose: 1 tab Documented By: Admin: 10/08/24 20:37 Dose: 1 tab Documented By: Admin: 10/08/24 08:43 Dose: 1 tab Documented By: HUNTER Voriconazole (Voriconazole 200 Mg Tablet) 200 mg PO Q12 [place] Stop: 11/07/24 08:59 Last Admin: 11/04/24 07:46 Dose: 200 mg Documented By: Admin: 11/03/24 20:48 Dose: 200 mg Documented By: Admin: 11/03/24 07:51 Dose: 200 mg Documented By: Admin: 11/02/24 21:47 Dose: 200 mg Documented By: Admin: 11/02/24 09:04 Dose: 200 mg Documented By: Admin: 11/01/24 22:06 Dose: 200 mg Documented By: Admin: 11/01/24 07:55 Dose: 200 mg Documented By: Admin: 10/31/24 21:05 Dose: 200 mg Documented By: Admin: 10/31/24 08:36 Dose: 200 mg Documented By: Admin: 10/30/24 21:01 Dose: 200 mg Documented By: jmk Admin: 10/30/24 09:03 Dose: 200 mg Documented By: Admin: 10/29/24 20:54 Dose: 200 mg Documented By: jmk Admin: 10/29/24 10:30 Dose: 200 mg Documented By: Admin: 10/28/24 19:39 Dose: 200 mg Documented By: Admin: 10/28/24 08:46 Dose: 200 mg Documented By: Admin: 10/27/24 20:11 Dose: 200 mg Documented By: Admin: 10/27/24 09:28 Dose: 200 mg Documented By: cak Admin: 10/26/24 21:10 Dose: 200 mg Documented By: Admin: 10/26/24 08:10 Dose: 200 mg Documented By: Admin: 10/25/24 21:55 Dose: 200 mg Documented By: Admin: 10/25/24 07:38 Dose: 200 mg Documented By: Admin: 10/24/24 21:17 Dose: 200 mg Documented By: Admin: 10/24/24 07:30 Dose: 200 mg Documented By: Admin: 10/23/24 19:42 Dose: 200 mg Documented By: Admin: 10/23/24 09:41 Dose: 200 mg Documented By: Admin: 10/22/24 21:27 Dose: 200 mg Documented By: Admin: 10/22/24 09:15 Dose: 200 mg Documented By: beny Admin: 10/21/24 20:36 Dose: 200 mg Documented By: je Admin: 10/21/24 07:35 Dose: 200 mg Documented By: Admin: 10/20/24 21:39 Dose: 200 mg Documented By: Admin: 10/20/24 07:59 Dose: 200 mg Documented By: Admin: 10/19/24 21:58 Dose: 200 mg Documented By: Admin: 10/19/24 08:12 Dose: 200 mg Documented By: Admin: 10/18/24 21:46 Dose: 200 mg Documented By: snc Admin: 10/18/24 08:13 Dose: 200 mg Documented By: Admin: 10/17/24 21:50 Dose: 200 mg Documented By: snc Admin: 10/17/24 08:56 Dose: 200 mg Documented By: Admin: 10/16/24 20:41 Dose: 200 mg Documented By: Admin: 10/16/24 09:12 Dose: 200 mg Documented By: Admin: 10/15/24 21:24 Dose: 200 mg Documented By: rodriguez Admin: 10/15/24 09:46 Dose: 200 mg Documented By: Admin: 10/14/24 20:19 Dose: 200 mg Documented By: Admin: 10/14/24 12:55 Dose: 200 mg Documented By: Admin: 10/13/24 20:17 Dose: 200 mg Documented By: Admin: 10/13/24 08:44 Dose: 200 mg Documented By: Admin: 10/12/24 20:21 Dose: 200 mg Documented By: Admin: 10/12/24 09:02 Dose: 200 mg Documented By: Admin: 10/11/24 21:38 Dose: 200 mg Documented By: Admin: 10/11/24 09:06 Dose: 200 mg Documented By: cjk Admin: 10/10/24 21:07 Dose: 200 mg Documented By: Admin: 10/10/24 08:52 Dose: 200 mg Documented By: cjk Admin: 10/09/24 20:22 Dose: 200 mg Documented By: Admin: 10/09/24 09:52 Dose: 200 mg Documented By: Admin: 10/08/24 20:38 Dose: 200 mg Documented By: Admin: 10/08/24 08:35 Dose: 200 mg Documented By: HUNTER
[2024-11-05 05:40] LABS: Hematocrit (blood only) 27.8 % (37.0-47.0); Hemoglobin 8.5 g/dl (12.0-16.0); Mean Corpuscular Hemoglobin 31.1 pg (25.0-34.0); Mean Corpuscular Volume 101.8 fL (80.0-100.0); Platelet Count 180 K/uL (130-400); RDW Standard Deviation 64.9 fL (36.4-46.3); Red Blood Count 2.73 M/uL (4.20-5.40); White Blood Count 4.30 K/ul (4.8-10.8)
[2024-11-05] MEDS: VANCOMYCIN LEVEL ONE (06:15)
[2024-11-05 06:17] LABS: Alanine Aminotransferase 9.0 U/L (7-52); Albumin Globulin Ratio 1.0 (0.9-2); Alkaline Phosphatase 106.0 U/L (34-104); Anion Gap 7.0 (3-11); Bilirubin,Total 0.2 mg/dl (0.2-1.0); Blood Urea Nitrogen 7.0 mg/dl (6-23); Calcium 8.1 mg/dl (8.6-10.3); Carbon Dioxide 26.0 mmol/L (21-32); Chloride 108.0 mmol/L (98-107); Creatinine Clr Calc Pharmacy 118.1 ml/min; Globulin 2.9 gm/dl (2.5-4.0); Glucose 84.0 mg/dl (70-99(Fasting)); Potassium 3.5 mmol/L (3.5-5.1); Sodium 141.0 mmol/L (136-145); Total Protein 5.8 gm/dl (6.0-8.3)
[2024-11-05 06:54] VITALS: BP 125/68; PULSE 83; TEMP 98.2; O2SAT 92
--- NOTE | 2024-11-05 08:02 | Pharmacy Report ---
Pharmacy PK ABX Note - Date of Service November 05, 2024 - Assessment and Plan Assessment 11/05: * Reviewed vancomycin level, predicting therapeutic AUC/ARNOLD, continue current regimen. Repeat level as indicated if still admitted. 10/31 * Vancomycin level this AM ~14.3 mcg/ml - current vancomycin regimen associated with goal AUC/ARNOLD therefore will continue current regimen 10/28: * Vancomycin level this AM ~16.7 mcg/ml - current vancomycin regimen associated with goal AUC/ARNOLD therefore will continue current regimen 10/27: * Day #12 vancomycin. Repeat level not drawn this AM and AM vancomycin administered. Ordered a repeat level for noon ~ 6.5h after the dose. Random level- 14.4mcg/mL which is predicted to achieve ssAUC 402mg/L.hr with a 51% probability. 10/26 * Random level 11.5 mcg/mL this morning which suggests below higher target range of 500-600 AUC/ARNOLD once level drawn while vanco infusing was removed from data (within 400-600 AUC/ARNOLD range). Given uncertainty of previous level/if it was removed with previous calculations will confirm tomorrow morning prior to increasing dose. 10/24: Day #9 vancomycin. * Vancomycin level drawn early this morning was reported as 30.8mcg/mL, however, it was drawn while the dose of vancomycin was infusing. The RN stopped the vancomycin infusion another vanco level was obtained ~4.5 hrs later which was 18.6mcg/mL. This extrapolates to a supratherapeutic AUC, so the maintenance dose of vancomycin was decreased. * Vancomycin is to continue through 12/03/24. She also continues on po levofloxacin. 10/21: Day #6 Vancomycin * Vanco level drawn this morning was 20.4mcg/mL which extrapolates to a supratherapeutic AUC. The maintenance dose of vancomycin has been decreased. * She also continues on Zosyn. 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 Trough level this AM, 11.7mcg/mL (~8h level drawn appropriately). 10/17 * Plan for 6-8 weeks of vancomycin. Random level today 11.6 mcg/mL suggests attainment of target AUC/ARNOLD * Will continue with current dose. Can get additional level at steady state 10/16: * The vancomycin was d/c and daptomycin was started on 10/11. Today the patient was changed back to vancomycin per ID recommendation as patient's condition is reportedly declining. IR drainage of fluid collection of lumbar spine done and cultured x 2 on 10/13. Both cultures grew S. epidermidis. Repeat blood cultures done 10/15 x 2 are no growth to date (preliminary). * Indwelling port removed as well on 10/14. * Will reload vancomycin and start a regimen targeting the upper end of the AUC goal. (ID recommends dosing for possible meningitis). 10/10: 79 year old started on vancomycin due to positive blood culture result/Gm+ cocci -staph epi / BCID2 positive for mecA/C. Only 1/2 bottles positive, therefore potential for contaminant. Repeat blood cultures pending. Pt with history of recent lumbar spine fracture - admitted for worsening pain. Per notes, ortho recommending conservative measures. Also undergoing chemotherapy with last session in August. On suppressive abx with levaquin, voriconazole and acyclovir. Plan Vancomycin * Continue current dosing, no change * Recheck level as indicated. Pharmacy will continue to follow and will adjust dose/frequency as necessary. Thank you. Pharmacy has transitioned to AUC monitoring for vancomycin. AUC/ARNOLD is the preferred PK/PD target and is associated with decreased risk of nephrotoxicity compared to traditional trough targets.
--- NOTE | 2024-11-05 10:17 | Discharge Summary ---
Discharge Summary Date of Service November 05, 2024 Principal Dx & Hospital Course #1 = Principal Diagnosis (1) Staphylococcus epidermidis bacteremia: (2) Psoas muscle abscess: (3) Osteomyelitis of lumbar vertebra: (4) Compression fracture of L3 vertebra: (5) Back pain: (6) Physical deconditioning: (7) Diabetes mellitus, type II: (8) Dyslipidemia: (9) AML (acute myeloblastic leukemia): (10) Pancytopenia: (11) Anxiety: Plan Patient 79-year-old female who presented to the emergency department with increasing back pain. Patient has known history of spinal stenosis and had recently been in the hospital for compression fracture of the lumbar spine. Despite ongoing rehab and time patient's back pain continued to worsen. There is also concern that she may be having a fever and decreasing appetite. Patient is immunosuppressed on chemotherapy for her AML. In the emergency department imaging was consistent with compression fracture, there was also concerns for infection with an elevated procalcitonin. Patient was admitted to the hospital. She was placed on empiric antibiotics. Patient's pain was controlled. She was seen by therapies. Orthospine consultation was obtained. Pain management consultation was obtained. Unfortunately patient's blood cultures grew out Staph epidermidis. Imaging was concerning for possible abscess formation in the iliopsoas muscle. Echocardiogram was performed with now evident evidence of vegetation. Infectious disease consultation was obtained. Due to her symptoms it felt that this was a real infection. Is recommended that her port be removed. Surgical consultation was obtained. Patient underwent removal of her Port-A-Cath on 10/14/2024. Interventional radiology consultation was also obtained. Patient underwent CT-guided drainage of iliopsoas abscess on 10/13/2024. Surveillance blood cultures were obtained. They eventually remain sterile. Ultimately was determined that the patient stay on IV and antibiotics/vancomycin for 6 to 8 weeks from the timing of her sterile blood cultures. During the rest of her hospitalization patient slowly started to improve, however she continued to require significant amount of assistance. Case management was involved in her care to work on rehab. During this time she also eventually then saw psychiatry for anxiety depression. She saw palliative care for goals of care in the setting of her AML. Eventually patient's laboratory studies stabilized. Her pain became controlled after adjustments of her medications. Hemoglobin remained stable. And she started to improve. Case management coordinated for her to get ongoing rehabilitation at [facility]. Should be discharged there for ongoing rehabilitation. Notes For Next Care Provider Follow-up with specialist as coordinated Medication Changes From Visit Vancomycin for infection through 12/03/2024 OxyContin for ongoing pain control Levaquin discontinued Admission HPI Per Admitting Provider 79-year-old female with past medical history significant for type 2 diabetes, dyslipidemia, paroxysmal SVT, hypertension, GERD, osteoarthritis of both knees, AML, generalized anxiety disorder, spinal stenosis of lumbar region, persistent insomnia who was recently in the hospital for lumbar spine compression fracture and discharged to rehab comes back with severe back pain. Patient states at rehab she was having a lot of constipation and stool softeners were given since then she had a lot of back pain. The stool softeners relieved her constipation but the back pain got worse. She could not tolerate the back pain this reason she was came to the hospital today. She thinks she might had fever. Denies any bowel incontinence. She says sometimes she gets bladder incontinence but it is nothing new. Pain is not shooting down the legs. Ambulating with a walker but now the pain got worse. Denies any chest pain. No shortness of breath. No cough. No headache. No runny nose or sore throat. No difficulty swallowing. Last couple of days appetite is down. Last chemo was in August. She was supposed to get chemo on 09/29/2024 but because she is rehab it was held. Currently while resting seems comfortable and hemodynamics are okay. Past medical history. As mentioned above. Past surgical history. Hysterectomy. Injection of the lumbosacral spine. Appendectomy. Knee meniscectomy. Social history. . No smoking. Alcohol wine at night as per uTest. No drug use. Family history. Father had CLL. Mother had diabetes. [place]. Admission Exam Per Admitting Provider See H&P Discharge Exam Constitutional: Alert, nontoxic, sitting in chair HEENT: Mucous membranes moist. Lungs: Clear to auscultation, decreased, no wheezes rales or rhonchi CV: S1-S2, regular Abdomen: Soft, nontender, nondistended Extremities: No significant edema Musculoskeletal: wearing back brace Neuro: No focal deficits Psych: Cooperative, normal mood Updated Medication List Medication Instructions Recorded Confirmed Type acetaminophen 500 mg tablet 1,000 mg PO Q8 PRN .FEVER/MILD 11/16/20 10/07/24 History PAIN 1-4 gabapentin 100 mg capsule 100 mg PO BID 01/09/24 10/07/24 History furosemide 20 mg tablet 10 mg PO Q OTHER DAY 08/26/24 10/07/24 History potassium chloride 10 mEq 10 meq PO Q OTHER DAY 08/26/24 10/07/24 History tablet,extended release decitabine 50 mg intravenous 0 mg IV MONTHLY 09/10/24 10/07/24 History solution levofloxacin 500 mg tablet 500 mg PO QAM 09/25/24 10/07/24 History lorazepam 0.5 mg tablet 0.5 mg PO DAILY PRN Insomnia 09/25/24 10/07/24 History buspirone 5 mg tablet 5 mg PO AMHS 10/07/24 10/07/24 History oxycodone 5 mg tablet 5 mg PO Q6H PRN pain 5-8 10/07/24 10/07/24 History oxycodone 5 mg tablet 10 mg PO Q6H PRN pain 9-10 10/07/24 10/07/24 History tramadol 50 mg tablet 50 mg PO BID PRN pain 5-10 10/07/24 10/07/24 History L.acidop,casei,lactis,rham-B.lact,liz 1 cap PO DAILY #30 caps 11/05/24 Rx 625 mg (10 billion cell) capsule (Advanced Probiotic) acetaminophen 500 mg tablet 1,000 mg (2 x 500 mg) PO Q8H #300 11/05/24 Rx (Tylenol Extra Strength) tabs acyclovir 400 mg tablet 400 mg PO BID #60 tabs 11/05/24 Rx amlodipine 10 mg tablet 5 mg (1/2 x 10 mg) PO QAM #30 tabs 11/05/24 Rx atorvastatin 20 mg tablet 20 mg PO HS #30 tabs 11/05/24 Rx citalopram 10 mg tablet 20 mg (2 x 10 mg) PO QAM #60 tabs 11/05/24 Rx cyanocobalamin (vitamin B-12) 500 1,000 mcg (2 x 500 mcg) PO QAM #30 11/05/24 Rx mcg tablet tabs enoxaparin 40 mg/0.4 mL 40 mg (0.4 mL) subcut Q24H #30 mL 11/05/24 Rx subcutaneous syringe (Lovenox) lidocaine 5 % topical patch 1 patch transdermal QAM #30 ea 11/05/24 Rx melatonin 5 mg tablet 5 mg PO HS PRN Insomnia #10 tabs 11/05/24 Rx mirtazapine 15 mg tablet 7.5 mg (1/2 x 15 mg) PO HS #15 tabs 11/05/24 Rx ondansetron HCl 4 mg tablet 4 mg PO Q6H PRN Nausea And 11/05/24 Rx Vomiting #30 tabs oxycodone 15 mg tablet,crush 15 mg PO Q12 #20 tabs 11/05/24 Rx resistant,extended release 12 hr (OxyContin) oxycodone 5 mg tablet 5 mg PO Q6H PRN pain #10 tabs 11/05/24 Rx polyethylene glycol 3350 17 gram 17 g PO DAILY #30 ea 11/05/24 Rx oral powder packet (Miralax) potassium chloride 20 mEq 20 meq PO DAILY #30 tabs 11/05/24 Rx tablet,extended release(part/cryst) pregabalin 25 mg capsule 25 mg PO TID #90 caps 11/05/24 Rx sennosides 8.6 mg-docusate sodium 1 tab PO BID #60 tabs 11/05/24 Rx 50 mg tablet (Senokot-S) vancomycin 750 mg intravenous 750 mg IV Q8H #10 ea 11/05/24 Rx solution voriconazole 200 mg tablet 200 mg PO Q12 #60 tabs 11/05/24 Rx Hospital Stay Data Consultations 10/07/24 22:06 ED Decision to Admit Stat 10/08/24 08:00 Consult General Surgery Routine Consult Orthopedic Spine Surgery Routine 10/09/24 10:46 Consult Pain Management Routine 10/11/24 12:07 Consult Infectious Diseases Routine 10/13/24 17:17 Consult General Surgery Routine 10/26/24 07:47 Consult Psychiatry Routine 10/27/24 07:47 Consult Palliative Care Routine Procedures Performed Operation Date: 10/14/24 07:00 Actual Procedures p Removal of A-port(Left) - Randall Treviño DO Diagnostic Imagining Performed 10/07/24 19:31 CT abd pelvis wo con Stat CT lumbar spine wo con Stat CT thoracic spine wo con Stat 10/12/24 17:30 MR lumbar spine wo con Routine MR thoracic spine wo con Routine 10/13/24 11:[address] softtissperc w/gdnce Stat 10/26/24 07:38 MRI Lumbar Spine [MR lumbar spine wo con] Routine Reviewed imaging, laboratory and diagnostic studies. Pertinent findings as below. Most recent laboratory studies reveal: WBCs 4.3 Hemoglobin 8.5, stable Platelets of 180 Sodium 141 Potassium 3.5 Chloride 108 Carbon dioxide 26 BUN 7 Creatinine 0.33 Glucose 88 LFTs stable Vancomycin level 14.2 MRI lumbar spine showed no significant change in the appearance of L1-L2 and L3 compression fractures when compared to previous overall stable some slight improvement in the stenosis, redemonstration of intramuscular fluid collection in bilateral psoas muscles mildly decreased in size Initial blood cultures grew out Staph epidermidis, most recent surveillance blood cultures done on 10/15/2024 were sterile for 5 days Echocardiogram showed normal ejection fraction 60-65%, no definitive vegetation seen Pending Results Patient Have Any Pending Studies at Discharge: No Discharge Instructions Given to Patient (Per Discharging Provider) Continue to increase activity with therapies Wear brace as recommended by spine surgery Continue IV antibiotics Follow-up with specialist as coordinated Total Time Total Time Spent Total Time Spent (In Minutes): 45
== END 2024-11-05 14:12 | DRG 500 ==
LOC: ED 19:08 → SUATTDRO 10-08 00:10 → 2N 10-08 00:10 → 3E 10-11 23:51

== ENCOUNTER 2024-11-13 09:55 | Inpatient (IN) ==
--- NOTE | 2024-11-13 10:01 | Emergency Department Note ---
Impression & Plan AML (acute myeloblastic leukemia), Fever ED Provider Note NAME: ANIL ALAOM AGE: 79 SEX: F : 1945 ARRIVES VIA: Ambulance INFORMANT: Patient, ED PROVIDER(S): Andrea Madrid MD CHIEF COMPLAINT: Fever, outpatient referral MEDICAL DECISION MAKING: Patient presents due to concern for fever known history of chemo does have a PICC line in place. No concerning findings over the PICC line. IV was established and blood work was obtained. Patient treated with empiric IV cefepime and IV fluids. The patient also ordered IV Tylenol. Patient with mild leukopenia 4.4 with a hemoglobin of 10.8. The patient's platelet count is unremarkable. Kidney function unremarkable. Pro-Jorge is elevated at 18.9. The patient did receive cultures and lactate. The patient's lactate is normal. BioFire negative. Chest x-ray without obvious pneumonia. I did evaluate the patient's back as the patient did have a recent iliopsoas drainage but no overlying concerning signs to the back. Patient also did receive IV daptomycin. Discussion w/ other healthcare providers: None Prior /Outside records reviewed: None Differential diagnosis: Infection, dehydration, metabolic abnormality, hypo/hyperglycemia, electrolyte imbalance, anemia, UTI, pneumonia, thyroid dysfunction among others were considered. Diagnostics, as interpreted by me: ECG: None Cardiac monitoring: An order was placed for continuous cardiac monitoring. The monitor shows a rate of 85 with sinus rhythm. Patient was placed on pulse oximetry Medical decision rules: None Imaging studies: I informally interpreted the patient's Chest x-ray does not show obvious pneumonia with formal report to follow. HPI: Patient is a 79 year old female with PMH of chemo for AML presents into the ED for fever. Patient is currently staying at [facility] after extensive hospital stay from -11/05/24. During the most recent hospital stay she had a CT guided drainage of her abscess, removal of her port, given IV antibiotics. Patient currently on IV vancomycin until 12/03/24. Currently getting antibiotic through PIC line on R. arm. Patient was told at [facility] today she had a fever and was sent here to the ER. Patient doesn't recall a fever, but did feel nauseous which she was given anti- nausea medication. She reports she is eating better, and gaining weight. Patient also reports her back hurts periodically but is able to get up and out of bed. Patient denies chest pain, shortness of breath, dysuria, and burning sensation while urinating. Patient was teary-eyed during the current exam, believing she is just a "statistic". She also showed signs of confusion stating that someone is "picking" at her leg, despite no one touching her leg. PAST MEDICAL HISTORY: See Below PAST SURGICAL HISTORY: See Below SOCIAL HISTORY: See Below HOME MEDICATIONS: See Below ALLERGIES: See Below VITALS: See Below PHYSICAL EXAMINATION: GENERAL: NAD, non-toxic. EYE EXAM: Normal conjunctiva. PERRL, no anisocoria and EOM's grossly intact w/o pain. OROPHARYNX: Moist mucus membranes, grossly normal dentition. NECK: Trachea midline, no stridor. LUNGS: Clear to auscultation. Normal chest wall mechanics. HEART: NSR, no MRG. ABDOMEN: Abdomen soft, non-tender, no masses, no rebound or guarding. BACK: No CVA TTP. No overlying skin changes to the back. SKIN: No rashes and no bruising. UPPER EXTREMITIES: Upper extremities are grossly normal. Right upper extremity PICC line in place without overlying skin changes redness erythema fluctuance or drainage. LOWER EXTREMITIES: Grossly normal, no edema. NEURO EXAM: Awake and alert, follows commands, no obvious facial asymmetry, normal speech, moves all 4 extremities. Past Med/Surg History Problem List (Updated 11/17/24 @ 16:11 by Andrea Madrid MD) Fever (Acute) Altered mental status Fever Advanced care planning/counseling discussion Palliative care by specialist Weakness generalized Cancer related pain Generalized anxiety disorder Poor appetite Anxiety and depression Staphylococcus epidermidis bacteremia Psoas muscle abscess Osteomyelitis of lumbar vertebra Bacteremia Severe back pain Compression fracture of L3 vertebra Neutropenia (Acute) Compression fracture of lumbar vertebra (Acute) Back pain (Acute) Physical deconditioning Anxiety Diabetes mellitus, type II Dyslipidemia AML (acute myeloblastic leukemia) (Acute) Pancytopenia (Acute) Biceps tendinitis of right shoulder Lumbar spondylosis 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, left Medical History Compression fracture of L1 vertebra Pericardial effusion History of - 02/2024- evaluated by [facility] cardio- felt related to AML and/or chemo treatments- repeat ECHOs showed improvement (most recent ECHO 05/2024) Lumbar spondylosis Biceps tendinitis of right shoulder Anxiety HTN (hypertension) Diabetes mellitus type II, controlled no meds most recent Hgb A1C 12/2024 was 7.5 History of cellulitis 12/2023 per records Hx of acute respiratory failure (01/2024) had been at [place], transferred to [facility]- resolved AML (acute myeloblastic leukemia) (12/2023) [facility]- dr. oliver- gets chemo 1 week every month unless wbc is off, last chemo was week of august 31. has blood drawn weekly at [facility] SVT (supraventricular tachycardia) (2004) History of SVT- s/p 2004- no issues since. Sciatica Elevated cholesterol Controlled with statin Surgical History Port-A-Cath in place (10/14/24) Removal of A-port(Left) - Randall Treviño, DO History of insertion of tunneled central venous catheter (CVC) with port (01/2024) right side armstrong cath placed in [place] History of left knee replacement (2019) History of bone marrow biopsy (07/17/24) x3- [place] and [facility] S/P epidural steroid injection sciatica History of appendectomy (1967) H/O cardiac radiofrequency ablation (2004) 2004 H/O: hysterectomy (1989) MONICA with BSO Family History Father Cancer Other Coronary heart disease Diabetes Leukemia No family history of adverse response to anesthesia Social History Smoking Status: Never smoker Second Hand Exposure: No; Do You Dip or Chew Tobacco: No; Hx Alcohol Use: No Hx Substance Use: No Preferred Language: Chadian Communication Ability: Effective Visual Impairment: No Limitations Public Works Technician Required: No Beliefs That Will Affect Care: None marital status: Current Living Situation: Family Current Living Situation Comment: previously lived w/daughter & grandson Other Information That Helps Us Care for You: No Feels Safe at Home: Yes Safety Concerns: Feels Safe At This Time Assistive Devices: Cane Allergies Allergies Allergy/AdvReac Type Severity Reaction Status Date / Time No Known Allergies Allergy Mild Verified 09/17/24 11:27 Home Meds Home Medications Medication Instructions Recorded Confirmed decitabine 50 mg intravenous 0 mg IV MONTHLY 09/10/24 11/13/24 solution gabapentin 100 mg capsule 300 mg PO HS 11/13/24 11/13/24 Previous Rx's Medication Instructions Recorded L.acidop,casei,lactis,rham-B.lact,liz 1 cap PO DAILY #30 caps 11/05/24 625 mg (10 billion cell) capsule (Advanced Probiotic) acetaminophen 500 mg tablet 1,000 mg (2 x 500 mg) PO Q8H #300 11/05/24 (Tylenol Extra Strength) tabs acyclovir 400 mg tablet 400 mg PO BID #60 tabs 11/05/24 amlodipine 10 mg tablet 5 mg (1/2 x 10 mg) PO QAM #30 tabs 11/05/24 atorvastatin 20 mg tablet 20 mg PO HS #30 tabs 11/05/24 citalopram 10 mg tablet 20 mg (2 x 10 mg) PO QAM #60 tabs 11/05/24 cyanocobalamin (vitamin B-12) 500 1,000 mcg (2 x 500 mcg) PO QAM #30 11/05/24 mcg tablet tabs enoxaparin 40 mg/0.4 mL 40 mg (0.4 mL) subcut Q24H #30 mL 11/05/24 subcutaneous syringe (Lovenox) lidocaine 5 % topical patch 1 patch transdermal QAM #30 ea 11/05/24 melatonin 5 mg tablet 5 mg PO HS PRN Insomnia #10 tabs 11/05/24 mirtazapine 15 mg tablet 7.5 mg (1/2 x 15 mg) PO HS #15 tabs 11/05/24 ondansetron HCl 4 mg tablet 4 mg PO Q6H PRN Nausea And 11/05/24 Vomiting #30 tabs oxycodone 15 mg tablet,crush 15 mg PO Q12 #20 tabs 11/05/24 resistant,extended release 12 hr (OxyContin) oxycodone 5 mg tablet 5 mg PO Q6H PRN pain #10 tabs 11/05/24 polyethylene glycol 3350 17 gram 17 g PO DAILY #30 ea 11/05/24 oral powder packet (Miralax) potassium chloride 20 mEq 20 meq PO DAILY #30 tabs 11/05/24 tablet,extended release(part/cryst) pregabalin 25 mg capsule 25 mg PO TID #90 caps 11/05/24 sennosides 8.6 mg-docusate sodium 1 tab PO BID #60 tabs 11/05/24 50 mg tablet (Senokot-S) vancomycin 750 mg intravenous 750 mg IV Q8H #10 ea 11/05/24 solution voriconazole 200 mg tablet 200 mg PO Q12 #60 tabs 11/05/24 Results & Data (ED) Home Medications Current Medication List: was personally reviewed by me Laboratory Data Attestation: I reviewed the patient's lab results. 11/17/24 07:23 11/17/24 07:23 Lab Results 11/13/24 11/13/24 Range/Units 10:27 12:44 WBC 4.45 L (4.8-10.8) K/ul RBC 3.42 L (4.20-5.40) M/uL Hgb 10.8 L (12.0-16.0) g/dl Hct 33.7 L (37.0-47.0) % MCV 98.5 (80.0-100.0) fL MCH 31.6 (25.0-34.0) pg MCHC 32.0 (32.0-36.0) g/dL RDW Std Deviation 62.4 H (36.4-46.3) fL RDW Coeff of Patti 17.3 H (11.5-14.5) % Plt Count 186 (130-400) K/uL MPV 10.3 (9.4-12.4) fL Immature Gran % (Auto) 0.7 % Neut % (Auto) 66.1 % Lymph % (Auto) 24.9 % [place] % (Auto) 7.2 % Eos % (Auto) 0.4 % Baso % (Auto) 0.7 % Neut # (Auto) 2.94 (1.40-6.50) K/uL Lymph # (Auto) 1.11 L (1.20-3.40) K/uL [place] # (Auto) 0.32 (0.11-0.59) K/uL Eos # (Auto) 0.02 (0.00-0.50) K/uL Baso # (Auto) 0.03 (0.00-0.20) K/uL Immature Gran # (Auto) 0.03 (0.01-0.20) K/uL Sodium 139 (136-145) mmol/L Potassium 3.6 (3.5-5.1) mmol/L Chloride 106 (98-107) mmol/L Carbon Dioxide 21 (21-32) mmol/L Anion Gap 12 H (3-11) BUN 12 (6-23) mg/dl Creatinine 0.51 L (0.6-1.2) mg/dl Est Cr Clr Drug Dosing 75.5 ml/min eGFR 96.08 BUN/Creatinine Ratio 23.5 H (10-20) Glucose 87 (70-99(Fasting)) mg/dl Lactate 2.0 (0.4-2.0) mmol/L Calcium 8.9 (8.6-10.3) mg/dl Total Bilirubin 0.5 (0.2-1.0) mg/dl AST 17 (13-39) U/L ALT 10 (7-52) U/L Alkaline Phosphatase 137 H (34-104) U/L Total Protein 7.4 (6.0-8.3) gm/dl Albumin 3.2 L (3.4-5.0) gm/dl Globulin 4.2 H (2.5-4.0) gm/dl Albumin/Globulin Ratio 0.8 L (0.9-2) Procalcitonin 18.90 H (0-0.5) ng/ml Adenovirus (PCR) Not Detected (NotDetected) B. pertussis DNA (PCR) Not Detected (NotDetected) B.parapertussis DNA PCR Not Detected (NotDetected) C. pneumoniae DNA (PCR) Not Detected (NotDetected) Coronavirus OC43 (PCR) Not Detected (NotDetected) Coronavirus HKU1 (PCR) Not Detected (NotDetected) Coronavirus 229E (PCR) Not Detected (NotDetected) SARS-CoV-2 (PCR) Not Detected (NotDetected) Coronavirus NL63 (PCR) Not Detected (NotDetected) Human Metapneumovir PCR Not Detected (NotDetected) Influenza Type A (PCR) Not Detected (NotDetected) Influenza Type B (PCR) Not Detected (NotDetected) M. pneumoniae (PCR) Not Detected (NotDetected) Parainfluenza 1 (PCR) Not Detected (NotDetected) Parainfluenza 2 (PCR) Not Detected (NotDetected) Parainfluenza 3 (PCR) Not Detected (NotDetected) Parainfluenza 4 (PCR) Not Detected (NotDetected) RSV (PCR) Not Detected (NotDetected) Entero/Rhino (PCR) Not Detected (NotDetected) Administered Medications Acetaminophen (Acetaminophen 325 Mg Tab) 650 mg PO Q4H PRN PRN Reason: pain/fever Stop: 12/13/24 14:29 Last Admin: 11/17/24 14:07 Dose: 650 mg Documented By: Admin: 11/13/24 17:41 Dose: 650 mg Documented By: LUCY Acetaminophen (Acetaminophen 500 Mg Tab) 1,000 mg PO Q8 [place] Stop: 12/13/24 17:59 Last Admin: 11/17/24 14:08 Dose: Not Given Documented By: Admin: 11/17/24 06:07 Dose: 1,000 mg Documented By: Admin: 11/16/24 22:04 Dose: 1,000 mg Documented By: Admin: 11/16/24 15:32 Dose: 1,000 mg Documented By: Admin: 11/16/24 05:40 Dose: 1,000 mg Documented By: Admin: 11/15/24 21:05 Dose: 1,000 mg Documented By: HKTyler Admin: 11/15/24 13:50 Dose: 1,000 mg Documented By: Admin: 11/15/24 05:11 Dose: 1,000 mg Documented By: Admin: 11/14/24 21:03 Dose: 1,000 mg Documented By: Admin: 11/14/24 13:48 Dose: 1,000 mg Documented By: Admin: 11/14/24 06:21 Dose: 1,000 mg Documented By: Admin: 11/13/24 18:59 Dose: Not Given Documented By: CLEMENTINA Acyclovir (Acyclovir 400 Mg Tab) 400 mg PO BID [place] Stop: 12/13/24 20:59 Last Admin: 11/17/24 08:54 Dose: 400 mg Documented By: Admin: 11/16/24 20:44 Dose: 400 mg Documented By: Admin: 11/16/24 09:29 Dose: 400 mg Documented By: Admin: 11/15/24 21:06 Dose: 400 mg Documented By: Admin: 11/15/24 08:54 Dose: 400 mg Documented By: Admin: 11/14/24 21:03 Dose: 400 mg Documented By: Admin: 11/14/24 10:17 Dose: 400 mg Documented By: Admin: 11/13/24 21:56 Dose: 400 mg Documented By: CLEMENTINA Amlodipine Besylate (Amlodipine Besylate 5 Mg Tab) 5 mg PO QAM [place] Stop: 12/14/24 08:59 Last Admin: 11/17/24 08:54 Dose: 5 mg Documented By: Admin: 11/16/24 09:31 Dose: 5 mg Documented By: Admin: 11/15/24 08:53 Dose: Not Given Documented By: Admin: 11/14/24 10:18 Dose: 5 mg Documented By: JOSEPHINE Atorvastatin Calcium (Atorvastatin 20 Mg Tab) 20 mg PO HS [place] Stop: 12/13/24 20:59 Last Admin: 11/16/24 20:44 Dose: 20 mg Documented By: Admin: 11/15/24 21:07 Dose: 20 mg Documented By: Admin: 11/14/24 21:04 Dose: 20 mg Documented By: Admin: 11/13/24 21:56 Dose: 20 mg Documented By: CLEMENTINA Calcium/Vitamin D (Calcium 600mg + Vit D 400 Iu Tab) 1 tab PO DAILY [place] Stop: 12/15/24 08:59 Last Admin: 11/17/24 08:54 Dose: 1 tab Documented By: Admin: 11/16/24 09:30 Dose: 1 tab Documented By: Admin: 11/15/24 09:08 Dose: 1 tab Documented By: JOSEPHINE Citalopram Hydrobromide (Citalopram 20 Mg Tab) 20 mg PO QAM [place] Stop: 12/14/24 08:59 Last Admin: 11/17/24 08:54 Dose: 20 mg Documented By: Admin: 11/16/24 09:31 Dose: 20 mg Documented By: Admin: 11/15/24 08:54 Dose: 20 mg Documented By: Admin: 11/14/24 10:34 Dose: Not Given Documented By: JOSEPHINE Cyanocobalamin (Cyanocobalamin (B-12) 500 Mcg Tablet) 1,000 mcg PO QAM [place] Stop: 12/14/24 08:59 Last Admin: 11/17/24 08:54 Dose: 1,000 mcg Documented By: Admin: 11/16/24 09:31 Dose: 1,000 mcg Documented By: Admin: 11/15/24 08:54 Dose: 1,000 mcg Documented By: Admin: 11/14/24 10:16 Dose: Not Given Documented By: JOSEPHINE Enoxaparin Sodium (Enoxaparin Inj 40 Mg/0.4 Ml Syr) 40 mg SQ QAM [place] Stop: 12/14/24 08:59 Last Admin: 11/17/24 08:54 Dose: 40 mg Documented By: Admin: 11/16/24 09:33 Dose: 40 mg Documented By: Admin: 11/15/24 08:55 Dose: 40 mg Documented By: Admin: 11/14/24 12:35 Dose: 40 mg Documented By: JOSEPHINE Heparin Sodium (Beef Lung) (Heparin 10 Unit/Ml 5 Ml Flush) 5 ml FLUSH PRN PRN PRN Reason: Flush Stop: 12/13/24 18:03 Last Admin: 11/13/24 20:42 Dose: 5 ml Documented By: WILLY Vancomycin HCl 750 mg/ Sodium (Chloride) 265 mls @ 200 mls/hr IV Q8H [place] Stop: 11/27/24 15:59 Last Admin: 11/17/24 15:50 Dose: 200 mls/hr Documented By: Infusion: 11/17/24 11:04 Dose: Infused Documented By: Admin: 11/17/24 09:36 Dose: 200 mls/hr Documented By: Infusion: 11/17/24 00:55 Dose: Infused Documented By: Admin: 11/16/24 23:20 Dose: 200 mls/hr Documented By: Infusion: 11/16/24 18:34 Dose: Infused Documented By: Admin: 11/16/24 16:41 Dose: 200 mls/hr Documented By: Infusion: 11/16/24 11:10 Dose: Infused Documented By: Admin: 11/16/24 09:03 Dose: 200 mls/hr Documented By: Infusion: 11/16/24 01:20 Dose: Infused Documented By: Admin: 11/15/24 23:40 Dose: 200 mls/hr Documented By: Infusion: 11/15/24 17:43 Dose: Infused Documented By: Admin: 11/15/24 16:08 Dose: 200 mls/hr Documented By: Infusion: 11/15/24 10:51 Dose: Infused Documented By: Admin: 11/15/24 09:27 Dose: 200 mls/hr Documented By: Infusion: 11/15/24 03:27 Dose: Infused Documented By: Admin: 11/15/24 01:14 Dose: 200 mls/hr Documented By: Infusion: 11/14/24 17:20 Dose: Infused Documented By: Admin: 11/14/24 16:00 Dose: 200 mls/hr Documented By: Infusion: 11/14/24 10:15 Dose: Infused Documented By: Admin: 11/14/24 08:30 Dose: 200 mls/hr Documented By: Infusion: 11/14/24 00:43 Dose: Infused Documented By: Admin: 11/13/24 23:22 Dose: 200 mls/hr Documented By: Infusion: 11/13/24 18:26 Dose: Infused Documented By: Admin: 11/13/24 16:49 Dose: 200 mls/hr Documented By: MPS Insulin Aspart (Insulin Aspart Per Unit Charge) 0 units SC ACHS [place] Stop: 12/13/24 16:29 Last Admin: 11/17/24 12:59 Dose: Not Given Documented By: Admin: 11/17/24 08:45 Dose: Not Given Documented By: Admin: 11/16/24 22:05 Dose: Not Given Documented By: Admin: 11/16/24 17:49 Dose: Not Given Documented By: Admin: 11/16/24 13:01 Dose: Not Given Documented By: Admin: 11/16/24 09:07 Dose: Not Given Documented By: Admin: 11/15/24 20:28 Dose: Not Given Documented By: ERIC Co-signed By: MONA Admin: 11/15/24 17:41 Dose: Not Given Documented By: JOSEPHINE Co-signed By: BERTRAND Admin: 11/15/24 12:32 Dose: Not Given Documented By: JOSEPHINE Co-signed By: BERTRAND Admin: 11/15/24 10:00 Dose: Not Given Documented By: JOSEPHINE Co-signed By: BERTRAND Admin: 11/14/24 20:53 Dose: Not Given Documented By: ERIC Co-signed By: MARQUIS Admin: 11/14/24 17:45 Dose: Not Given Documented By: JOSEPHINE Co-signed By: ZAC Admin: 11/14/24 12:39 Dose: Not Given Documented By: JOSEPHINE Co-signed By: JOSEPHINE(2) Admin: 11/14/24 09:37 Dose: Not Given Documented By: JOSEPHINE Co-signed By: JENNIFER Admin: 11/13/24 20:46 Dose: Not Given Documented By: Admin: 11/13/24 17:39 Dose: Not Given Documented By: MPS Lactobacillus Acidophilus (Advanced Probiotic 625 Mg Capsule) 1,250 mg PO DAILY [place] Stop: 12/14/24 08:59 Last Admin: 11/17/24 08:54 Dose: 1,250 mg Documented By: Admin: 11/16/24 09:32 Dose: 1,250 mg Documented By: Admin: 11/15/24 08:54 Dose: 1,250 mg Documented By: Admin: 11/14/24 10:34 Dose: Not Given Documented By: JOSEPHINE Lidocaine (Lidocaine 5% 1 Patch) 1 patch TD QAM [place] Stop: 12/14/24 08:59 Last Admin: 11/17/24 08:52 Dose: 1 patch Documented By: Admin: 11/16/24 09:34 Dose: 1 patch Documented By: Admin: 11/15/24 09:14 Dose: 1 patch Documented By: Admin: 11/14/24 10:28 Dose: Not Given Documented By: JOSEPHINE Mirtazapine (Mirtazapine Tab 15 Mg Tab) 7.5 mg PO HS [place] Stop: 12/13/24 20:59 Last Admin: 11/16/24 22:04 Dose: 7.5 mg Documented By: Admin: 11/15/24 21:07 Dose: 7.5 mg Documented By: Admin: 11/14/24 21:04 Dose: 7.5 mg Documented By: Admin: 11/13/24 21:57 Dose: 7.5 mg Documented By: CLEMENTINA Miscellaneous (Remove Lidoderm Patch) 1 each N/A DAILY@2100 [facility] Stop: 12/13/24 20:59 Last Admin: 11/16/24 22:04 Dose: 1 each Documented By: Admin: 11/15/24 21:06 Dose: 1 each Documented By: Admin: 11/14/24 21:05 Dose: 1 each Documented By: Admin: 11/13/24 21:56 Dose: 1 each Documented By: CLEMENTINA Ondansetron HCl (Ondansetron 4 Mg Od Tab) 4 mg PO Q6H PRN PRN Reason: Nausea And Vomiting Stop: 12/13/24 17:00 Last Admin: 11/17/24 08:57 Dose: 4 mg Documented By: Admin: 11/16/24 19:42 Dose: 4 mg Documented By: MONA Oxycodone HCl (Oxycodone Hcl 15 Mg Tabcr (Oxycontin)) 15 mg PO Q12 [place] Stop: 11/27/24 20:59 Last Admin: 11/17/24 08:54 Dose: 15 mg Documented By: Admin: 11/16/24 20:44 Dose: 15 mg Documented By: Admin: 11/16/24 09:31 Dose: 15 mg Documented By: Admin: 11/15/24 21:05 Dose: 15 mg Documented By: Admin: 11/15/24 09:08 Dose: 15 mg Documented By: Admin: 11/14/24 21:03 Dose: 15 mg Documented By: Admin: 11/14/24 10:23 Dose: 15 mg Documented By: Admin: 11/13/24 21:58 Dose: Not Given Documented By: CLEMENTINA Polyethylene Glycol (Polyethylene (Miralax) 17 Gm Pack) 17 gm PO DAILY [facility] Stop: 12/14/24 08:59 Last Admin: 11/17/24 08:44 Dose: Not Given Documented By: Admin: 11/16/24 09:33 Dose: Not Given Documented By: Admin: 11/15/24 08:56 Dose: Not Given Documented By: Admin: 11/14/24 08:34 Dose: Not Given Documented By: JOSEPHINE Senna/Docusate Sodium (Docusate Sodium/Senna 50/8.6mg Tab) 1 tab PO BID [place] Stop: 12/13/24 20:59 Last Admin: 11/17/24 08:53 Dose: 1 tab Documented By: Admin: 11/16/24 20:30 Dose: Not Given Documented By: Admin: 11/16/24 09:30 Dose: 1 tab Documented By: Admin: 11/15/24 20:32 Dose: Not Given Documented By: Admin: 11/15/24 09:11 Dose: Not Given Documented By: Admin: 11/14/24 21:09 Dose: Not Given Documented By: Admin: 11/14/24 08:34 Dose: Not Given Documented By: Admin: 11/13/24 21:54 Dose: 1 tab Documented By: CLEMENTINA Voriconazole (Voriconazole 200 Mg Tablet) 200 mg PO Q12 [place] Stop: 12/13/24 20:59 Last Admin: 11/17/24 09:13 Dose: 200 mg Documented By: Admin: 11/16/24 23:20 Dose: 200 mg Documented By: Admin: 11/16/24 09:31 Dose: 200 mg Documented By: Admin: 11/15/24 21:06 Dose: 200 mg Documented By: Admin: 11/15/24 08:54 Dose: 200 mg Documented By: Admin: 11/14/24 21:05 Dose: 200 mg Documented By: Admin: 11/14/24 10:16 Dose: 200 mg Documented By: Admin: 11/13/24 21:54 Dose: 200 mg Documented By: CLEMENTINA Discontinued Medications Alteplase, Recombinant (Alteplase, Recombinant 1 Mg/Ml 2ml Vial) 2 mg INSTIL ONE ONE Stop: 11/13/24 17:39 Last Admin: 11/13/24 18:28 Dose: 2 mg Documented By: MONA(2) Co-signed By: LUCY Enoxaparin Sodium (Enoxaparin Inj 40 Mg/0.4 Ml Syr) 40 mg SQ NOW STA Stop: 11/13/24 15:16 Last Admin: 11/13/24 16:49 Dose: 40 mg Documented By: LUCY Cefepime HCl (Maxipime 2000mg) 2,000 mg in 20 mls @ 5 mls/min IV NOW STA; Protocol Stop: 11/13/24 10:13 Last Admin: 11/13/24 11:13 Dose: 5 mls/min Documented By: CHRISTIANO Sodium Chloride (Nss) 1,000 mls @ 999 mls/hr IV .Q1H1M ONE Stop: 11/13/24 11:28 Last Infusion: 11/13/24 13:07 Dose: Infused Documented By: Admin: 11/13/24 11:16 Dose: 999 mls/hr Documented By: CHRISTIANO Daptomycin 400 mg/ Syringe 8 mls @ 4 mls/min IV NOW ONE; Protocol Stop: 11/13/24 10:39 Last Admin: 11/13/24 11:18 Dose: 4 mls/min Documented By: CHRISTIANO Acetaminophen (Ofirmev) 1,000 mg in 100 mls @ 400 mls/hr IV NOW STA Stop: 11/13/24 10:43 Last Infusion: 11/13/24 13:07 Dose: Infused Documented By: Admin: 11/13/24 11:23 Dose: 400 mls/hr Documented By: CHRISTIANO Promethazine HCl (Phenergan) 12.5 mg in 50.5 mls @ 202 mls/hr IV NOW STA Stop: 11/14/24 02:10 Last Infusion: 11/14/24 02:38 Dose: Infused Documented By: Admin: 11/14/24 02:15 Dose: 202 mls/hr Documented By: CLEMENTINA Lactated Ringer's (Lr) 1,000 mls @ 100 mls/hr IV .Q10H [place] Stop: 11/15/24 00:00 Last Infusion: 11/15/24 01:13 Dose: Infused Documented By: Admin: 11/14/24 20:37 Dose: 100 mls/hr Documented By: Infusion: 11/14/24 20:36 Dose: Infused Documented By: Admin: 11/14/24 10:15 Dose: 100 mls/hr Documented By: JOSEPHINE Potassium Chloride (K Liam / Wtr) 10 meq in 100 mls @ 100 mls/hr IV Q1H [place] Stop: 11/15/24 08:59 Last Infusion: 11/15/24 09:28 Dose: Infused Documented By: Admin: 11/15/24 08:10 Dose: 100 mls/hr Documented By: Infusion: 11/15/24 08:08 Dose: Infused Documented By: Admin: 11/15/24 07:08 Dose: 100 mls/hr Documented By: Infusion: 11/15/24 07:07 Dose: Infused Documented By: Admin: 11/15/24 06:13 Dose: 100 mls/hr Documented By: Infusion: 11/15/24 06:02 Dose: Infused Documented By: Admin: 11/15/24 05:02 Dose: 100 mls/hr Documented By: ERIC Calcium Gluconate () 1,000 mg in 60 mls @ 240 mls/hr IV NOW STA Stop: 11/15/24 08:32 Last Infusion: 11/15/24 11:48 Dose: Infused Documented By: Admin: 11/15/24 11:06 Dose: 240 mls/hr Documented By: JOSEPHINE Magnesium Sulfate/Dextrose (Magnesium Sulfate / D5w) 1 gm in 100 mls @ 50 mls/hr IV Q2H [place] Stop: 11/15/24 17:29 Last Infusion: 11/15/24 17:43 Dose: Infused Documented By: Admin: 11/15/24 15:39 Dose: 50 mls/hr Documented By: Infusion: 11/15/24 15:39 Dose: Infused Documented By: Admin: 11/15/24 13:48 Dose: 50 mls/hr Documented By: JOSEPHINE Calcium Gluconate () 1,000 mg in 60 mls @ 240 mls/hr IV NOW STA Stop: 11/16/24 08:40 Last Infusion: 11/16/24 11:10 Dose: Infused Documented By: Admin: 11/16/24 09:47 Dose: 240 mls/hr Documented By: JAR Magnesium Sulfate/Dextrose (Magnesium Sulfate / D5w) 1 gm in 100 mls @ 50 mls/hr IV Q2H [place] Stop: 11/16/24 14:29 Last Infusion: 11/16/24 21:46 Dose: Infused Documented By: Admin: 11/16/24 19:46 Dose: 50 mls/hr Documented By: Infusion: 11/16/24 19:46 Dose: Infused Documented By: Admin: 11/16/24 17:48 Dose: 50 mls/hr Documented By: Infusion: 11/16/24 17:21 Dose: Infused Documented By: Admin: 11/16/24 15:21 Dose: 50 mls/hr Documented By: TRACIE Sodium Phosphate 12 mmol/ (Sodium Chloride) 254 mls @ 88 mls/hr IV ONE ONE Stop: 11/16/24 11:38 Last Infusion: 11/16/24 14:34 Dose: Infused Documented By: Admin: 11/16/24 11:07 Dose: 88 mls/hr Documented By: TRACIE Ioversol (Optiray 320 100ml) 94 ml IV ONCE ONE Stop: 11/14/24 09:53 Last Admin: 11/14/24 09:52 Dose: 94 ml Documented By: RYAN Lorazepam (Lorazepam 1 Mg/1 Ml Syr Ed Inj Use) 0.25 mg IV ONE STA Stop: 11/13/24 10:51 Last Admin: 11/13/24 11:21 Dose: 0.25 mg Documented By: CHRISTIANO Lorazepam (Lorazepam 0.5 Mg Tab) 0.25 mg PO Q8 PRN PRN Reason: Anxiety Stop: 12/14/24 17:42 Last Admin: 11/14/24 17:53 Dose: 0.25 mg Documented By: JOSEPHINE Melatonin (Melatonin 3 Mg Tab) 4.5 mg PO HS PRN PRN Reason: Insomnia Stop: 12/13/24 17:00 Last Admin: 11/15/24 21:05 Dose: 4.5 mg Documented By: Admin: 11/14/24 21:02 Dose: 4.5 mg Documented By: ERIC Ondansetron HCl (Ondansetron Inj 2 Mg/Ml 2 Ml Vial) 4 mg IV Q6H PRN PRN Reason: Nausea Stop: 12/13/24 14:29 Last Admin: 11/14/24 11:30 Dose: 4 mg Documented By: Admin: 11/14/24 05:21 Dose: 4 mg Documented By: Admin: 11/13/24 21:55 Dose: 4 mg Documented By: CLEMENTINA Potassium Chloride (Potassium Chloride Crtab 20 Meq Tabcr) 20 meq PO DAILY [place] Stop: 12/14/24 08:59 Last Admin: 11/17/24 08:54 Dose: 20 meq Documented By: Admin: 11/16/24 09:32 Dose: 20 meq Documented By: Admin: 11/15/24 09:08 Dose: 20 meq Documented By: Admin: 11/14/24 10:23 Dose: Not Given Documented By: JOSEPHINE Potassium Chloride (Potassium Chloride Pwd 20 Meq Pack) 60 meq PO NOW STA Stop: 11/15/24 04:48 Last Admin: 11/15/24 05:01 Dose: 60 meq Documented By: ERIC Potassium Chloride (Potassium Chloride 20 Meq/15 Ml Udc) 40 meq PO ONCE ONE Stop: 11/15/24 13:01 Last Admin: 11/15/24 13:39 Dose: 40 meq Documented By: JOSEPHINE Potassium Chloride (Potassium Chloride 20 Meq/15 Ml Udc) 40 meq PO NOW STA Stop: 11/17/24 13:14 Last Admin: 11/17/24 14:06 Dose: 40 meq Documented By: POOL Pregabalin (Pregabalin 25 Mg Cap) 25 mg PO TID [place] Stop: 12/13/24 20:59 Last Admin: 11/14/24 08:34 Dose: Not Given Documented By: Admin: 11/13/24 20:02 Dose: Not Given Documented By: CLEMENTINA Imaging Data Radiologist's Impression: XR chest 1V portable CLINICAL HISTORY: fever COMPARISON STUDY: 10/07/2024 FINDINGS: Right PICC line tip is at the SVC. Heart size and pulmonary vasculature are normal. No consolidation or pleural effusion seen. No pneumothorax IMPRESSION: No pneumonia seen. ACT 112: Negative or not required by law. Electronically signed by: Joe Rivero M.D. 11/13/2024 11:06 AM Dictated: 11/13/241104 Transcribed: 11/13/241104 Discharge Plan Visit Data Chief Complaint: Fever ED Provider: Andrea Madrid Discharge Problem: AML (acute myeloblastic leukemia), Fever Patient Disposition: Admitted As Inpatient Condition: Good Discharge Instructions Interventions: ED Discharge Assessment Last Done: 11/13/24 15:17 Discharge Problem: Fever Qualifiers: Fever type: unspecified Qualified Code(s): R50.9 - Fever, unspecified
[2024-11-13 10:55] LABS: Hematocrit (blood only) 33.7 % (37.0-47.0); Hemoglobin 10.8 g/dl (12.0-16.0); Immature Granulocytes # (auto) 0.03 K/uL (0.01-0.20); Immature Granulocytes % (auto) 0.7 %; Mean Corpuscular Hemoglobin 31.6 pg (25.0-34.0); Mean Corpuscular Volume 98.5 fL (80.0-100.0); Platelet Count 186 K/uL (130-400); RDW Standard Deviation 62.4 fL (36.4-46.3); Red Blood Count 3.42 M/uL (4.20-5.40); White Blood Count 4.45 K/ul (4.8-10.8)
--- NOTE | 2024-11-13 11:07 | XRay Report ---
XR chest 1V portable CLINICAL HISTORY: fever COMPARISON STUDY: 10/07/2024 FINDINGS: Right PICC line tip is at the SVC. Heart size and pulmonary vasculature are normal. No cons olidation or pleural effusion seen. No pneumothorax IMPRESSION: No pneumonia seen. ACT 112: Negative or not required by law. Electronically signed by: Joe Rivero M.D. 11/13/2024 11:06 AM
[2024-11-13 11:11] LABS: Alanine Aminotransferase 10.0 U/L (7-52); Albumin Globulin Ratio 0.8 (0.9-2); Albumin Level 3.2 gm/dl (3.4-5.0); Alkaline Phosphatase 137.0 U/L (34-104); Anion Gap 12.0 (3-11); Bilirubin,Total 0.5 mg/dl (0.2-1.0); Blood Urea Nitrogen 12.0 mg/dl (6-23); Calcium 8.9 mg/dl (8.6-10.3); Carbon Dioxide 21.0 mmol/L (21-32); Chloride 106.0 mmol/L (98-107); Creatinine Clr Calc Pharmacy 75.5 ml/min; Globulin 4.2 gm/dl (2.5-4.0); Glucose 87.0 mg/dl (70-99(Fasting)); Potassium 3.6 mmol/L (3.5-5.1); Sodium 139.0 mmol/L (136-145); Total Protein 7.4 gm/dl (6.0-8.3)
[2024-11-13] MEDS: CEFEPIME 2000MG 2,000 MG/20 ML SYR IV STA (11:13)
[2024-11-13] MEDS: SODIUM CHLORIDE 0.9% 1,000 ML IV ONE (11:16)
[2024-11-13] MEDS: DAPTOmycin 400 MG in SYRINGE 0 ML IV ONE (11:18)
[2024-11-13] MEDS: LORazepam 1 MG/1 ML SYR ED Inj Use IV STA (11:21)
[2024-11-13] MEDS: ACETAMINOPHEN 1,000 MG/100 ML VIAL IV STA (11:23)
[2024-11-13] MEDS ORDERED: VANCOMYCIN CONSULT ACTIVE PRN (12:34)
--- NOTE | 2024-11-13 12:46 | History & Physical Report ---
Date of Service November 13, 2024 Assessment & Plan (1) Fever: (2) Altered mental status: (3) Bacteremia: (4) Compression fracture of lumbar vertebra: (5) AML (acute myeloblastic leukemia): (6) Dyslipidemia: (7) HTN (hypertension): (8) Anxiety: (9) Diabetes mellitus type II, controlled: Plan 79 year old female with PMH significant for HTN, HLD, DMII, history of pericardial effusion, PSVT s/p ablation in 2004, GERD with esophagitis, primary osteoarthritis of both knees, persistent insomnia, spinal stenosis of lumbar region, sacroiliitis, AML currently undergoing chemotherapy with decitabine/venetoclax on infectious prophylaxis with acyclovir/voriconazole/Levaquin, and lumbar compression fractures who was recently admitted for bilateral iliopsoas muscle fluid collections and staph epidermidis bacteremia and discharged to [facility] for rehab who presents to the E D on 11/13/2024 with fevers and confusion. Fever History of bilateral iliopsoas muscle fluid collection s/p IR drainage History of staph epidermidis bacteremia Patient presenting from [facility] with fever yesterday and today Temp 37.8 in the ED Labs revealed no leukocytosis, lactate 2.0, elevated procal 18.9 CXR negative Urinalysis ordered to rule out UTI in setting of difficulty with urination and suprapubic tenderness - unremarkable Lumbar MRI revealed very small psoas IM hematomas are decreased in size Received cefepime and daptomycin in ED Continue with vancomycin from previous admission recommended by ID for staph epidermidis bacteremia Obtain vanco level - therapeutic Follow blood cultures Altered mental status Patient presenting with confusion described as forgetful/foggy by her daughter Head CT negative Consider recent medication changes as potential cause - med rec from [facility] revealed new gabapentin started 11/10 at night x3 doses - hold for now Pt started on lyrica and mirtazapine during previous admission L1 and L3 compression fractures Continue PT/OT therapy while inpatient Continue pain regimen from previous admission recommended by palliative care AML undergoing chemotherapy Chronic blood loss anemia History of pancytopenia Last received chemo in August due to hospitalization/rehab stays Blood counts stable Continue suppressive antibiotics including levaquin, voriconazole, acyclovir Hypertension Continue amlodipine Hyperlipidemia Continue statin Anxiety/depression Continue citalopram and mirtazapine doses from previous admission recommended by psych Type 2 diabetes BSG ACHS and SSI DVT Prophylaxis: SQ lovenox Code Status: DNR/DNI - As per discussion at bedside with the patient. PCP: Vidal Card Disposition: admit to [facility] surg Patient seen in collaboration with Dr Wheeler. Please see addendum. I spent a total of 75 minutes coordinating, documenting and providing care for this patient excluding time spent in the performance of separately billed services or time spent by another provider/QHP. Admission and Anticipated Discharge Date Admission Date: 11/13/2024 History of Present Illness Chief Complaint: fevers and confusion Primary Care Provider: Vidal Card MD 79 year old female with PMH significant for HTN, HLD, DMII, history of pericardial effusion, PSVT s/p ablation in 2004, GERD with esophagitis, primary osteoarthritis of both knees, persistent insomnia, spinal stenosis of lumbar region, sacroiliitis, AML currently undergoing chemotherapy with decitabine/venetoclax on infectious prophylaxis with acyclovir/voriconazole/Levaquin, and lumbar compression fractures who was recently admitted for bilateral iliopsoas muscle fluid collections and staph epidermidis bacteremia and discharged to [facility] for rehab who presents to the ED on 11/13/2024 with fevers and confusion. History obtained from patient and her daughter, Vesna, who was present at bedside. Patient reports she developed a fever of 98 yesterday with associated body aches, weakness, poor appetite, and nausea. She was given tylenol but had another fever this morning and was told by the staff at [facility] that she should be evaluated. She reports one day of slightly worse back pain but overall reports that she was doing really well at rehab with therapy until yesterday when she felt generally unwell. Vesna expresses concern about the patient's mental status where she feels that she is forgetful/foggy, however, notes that this has been the case since she before she was discharged to [facility] last week. Vesna is concerned that this could be related to some of the medications that were started during previous admission, particularly lyrica. Vesna also reports that patient has been unable to urinate since arriving to the ED, and believes that she was urinating without difficultly at [facility]. Patient denies headache, dizziness, chest pain, SOB, abdominal pain, vomiting, constipation, diarrhea, dysuria, hematuria. Allergies Allergy/AdvReac Type Severity Reaction Status Date / Time No Known Allergies Allergy Mild Verified 09/17/24 11:27 Home Medications Medication Instructions Recorded Confirmed Type decitabine 50 mg intravenous 0 mg IV MONTHLY 09/10/24 11/13/24 History solution L.acidop,casei,lactis,rham-B.lact,liz 1 cap PO DAILY #30 caps 11/05/24 11/13/24 Rx 625 mg (10 billion cell) capsule (Advanced Probiotic) acetaminophen 500 mg tablet 1,000 mg (2 x 500 mg) PO Q8H #300 11/05/24 11/13/24 Rx (Tylenol Extra Strength) tabs acyclovir 400 mg tablet 400 mg PO BID #60 tabs 11/05/24 11/13/24 Rx amlodipine 10 mg tablet 5 mg (1/2 x 10 mg) PO QAM #30 tabs 11/05/24 11/13/24 Rx atorvastatin 20 mg tablet 20 mg PO HS #30 tabs 11/05/24 11/13/24 Rx citalopram 10 mg tablet 20 mg (2 x 10 mg) PO QAM #60 tabs 11/05/24 11/13/24 Rx cyanocobalamin (vitamin B-12) 500 1,000 mcg (2 x 500 mcg) PO QAM #30 11/05/24 11/13/24 Rx mcg tablet tabs enoxaparin 40 mg/0.4 mL 40 mg (0.4 mL) subcut Q24H #30 mL 11/05/24 11/13/24 Rx subcutaneous syringe (Lovenox) lidocaine 5 % topical patch 1 patch transdermal QAM #30 ea 11/05/24 11/13/24 Rx melatonin 5 mg tablet 5 mg PO HS PRN Insomnia #10 tabs 11/05/24 11/13/24 Rx mirtazapine 15 mg tablet 7.5 mg (1/2 x 15 mg) PO HS #15 tabs 11/05/24 11/13/24 Rx ondansetron HCl 4 mg tablet 4 mg PO Q6H PRN Nausea And 11/05/24 11/13/24 Rx Vomiting #30 tabs oxycodone 15 mg tablet,crush 15 mg PO Q12 #20 tabs 11/05/24 11/13/24 Rx resistant,extended release 12 hr (OxyContin) oxycodone 5 mg tablet 5 mg PO Q6H PRN pain #10 tabs 11/05/24 11/13/24 Rx polyethylene glycol 3350 17 gram 17 g PO DAILY #30 ea 11/05/24 11/13/24 Rx oral powder packet (Miralax) potassium chloride 20 mEq 20 meq PO DAILY #30 tabs 11/05/24 11/13/24 Rx tablet,extended release(part/cryst) pregabalin 25 mg capsule 25 mg PO TID #90 caps 11/05/24 11/13/24 Rx sennosides 8.6 mg-docusate sodium 1 tab PO BID #60 tabs 11/05/24 11/13/24 Rx 50 mg tablet (Senokot-S) vancomycin 750 mg intravenous 750 mg IV Q8H #10 ea 11/05/24 11/13/24 Rx solution voriconazole 200 mg tablet 200 mg PO Q12 #60 tabs 11/05/24 11/13/24 Rx gabapentin 100 mg capsule 300 mg PO HS 11/13/24 11/13/24 History Past Med/Surg History Problem List (Updated 11/13/24 @ 15:13 by AVNI Milner) Altered mental status Fever Advanced care planning/counseling discussion Palliative care by specialist Weakness generalized Cancer related pain Generalized anxiety disorder Poor appetite Anxiety and depression Staphylococcus epidermidis bacteremia Psoas muscle abscess Osteomyelitis of lumbar vertebra Bacteremia Severe back pain Compression fracture of L3 vertebra Neutropenia (Acute) Compression fracture of lumbar vertebra (Acute) Back pain (Acute) Physical deconditioning Anxiety Diabetes mellitus, type II Dyslipidemia AML (acute myeloblastic leukemia) Pancytopenia (Acute) Biceps tendinitis of right shoulder Lumbar spondylosis 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, left Medical History Compression fracture of L1 vertebra Pericardial effusion History of - 02/2024- evaluated by [facility]- felt related to AML and/or chemo treatments- repeat ECHOs showed improvement (most recent ECHO 05/2024) Lumbar spondylosis Biceps tendinitis of right shoulder Anxiety HTN (hypertension) Diabetes mellitus type II, controlled no meds most recent Hgb A1C 12/2024 was 7.5 History of cellulitis 12/2023 per records Hx of acute respiratory failure (01/2024) had been at [facility], transferred to [facility]- resolved AML (acute myeloblastic leukemia) (12/2023) [facility]- dr. oliver- gets chemo 1 week every month unless wbc is off, last chemo was august 31. has blood drawn weekly at [facility] SVT (supraventricular tachycardia) (2004) History of SVT- s/p 2004- no issues since. Sciatica Elevated cholesterol Controlled with statin Surgical History Port-A-Cath in place (10/14/24) Removal of A-port(Left) - [facility], History of insertion of tunneled central venous catheter (CVC) with port (01/2024) right side armstrong cath placed in [place] History of left knee replacement (2019) History of bone marrow biopsy (07/17/24) x3- [place] [facility] and [facility] S/P epidural steroid injection sciatica History of appendectomy (1967) H/O cardiac radiofrequency ablation (2004) 2004 H/O: hysterectomy (1989) [facility] with BSO Family History Father Cancer Other Coronary heart disease Diabetes Leukemia No family history of adverse response to anesthesia Social History (Updated 11/13/24 @ 15:11 by AVNI Milner) Smoking Status: Never smoker Second Hand Exposure: No; Do You Dip or Chew Tobacco: No; Hx Alcohol Use: No Hx Substance Use: No Preferred Language: Tristanian Communication Ability: Effective Visual Impairment: No Limitations Child Development Specialist Required: No Beliefs That Will Affect Care: None marital status: Current Living Situation: Family Current Living Situation Comment: previously lived w/daughter & grandson Other Information That Helps Us Care for You: No Feels Safe at Home: Yes Safety Concerns: Feels Safe At This Time Assistive Devices: Cane, Glasses and Walker Review of Systems Review of Systems: All systems reviewed & are unremarkable except as noted in HPI & below Physical Exam Physical Exam: Refer to exam by Dr Wheeler Results & Data Results & Data Vital Signs (Past 12 Hours) Vital Signs Temp Pulse Pulse Resp BP BP Pulse Ox 11/13/24 12:19 86 18 123/68 98 11/13/24 10:30 79 11/13/24 10:06 37.8 C H 96 H 19 136/71 96 11/13/24 10:06 37.8 C H 96 H 19 136/71 96 O2 Del Method 11/13/24 12:19 Room Air 11/13/24 10:30 11/13/24 10:06 Room Air 11/13/24 10:06 Room Air Laboratory Results Short CBC 11/13/24 Range/Units 10:27 WBC 4.45 L (4.8-10.8) K/ul Hgb 10.8 L (12.0-16.0) g/dl Hct 33.7 L (37.0-47.0) % Plt Count 186 (130-400) K/uL BMP 11/13/24 10:27 Sodium 139 Potassium 3.6 Chloride 106 Carbon Dioxide 21 BUN 12 Creatinine 0.51 L Glucose 87 Calcium 8.9 Liver Function 11/13/24 Range/Units 10:27 Total Bilirubin 0.5 (0.2-1.0) mg/dl AST 17 (13-39) U/L ALT 10 (7-52) U/L Alkaline Phosphatase 137 H (34-104) U/L Albumin 3.2 L (3.4-5.0) gm/dl I have independently reviewed and interpreted patient's admitting labs including CBC, CMP, lactate, procal. Diagnostic Findings Chest X-Ray 11/13/24 10:09 XR chest 1V portable CLINICAL HISTORY: fever COMPARISON STUDY: 10/07/2024 FINDINGS: Right PICC line tip is at the SVC. Heart size and pulmonary vasculature are normal. No consolidation or pleural effusion seen. No pneumothorax IMPRESSION: No pneumonia seen. ACT 112: Negative or not required by law. Electronically signed by: Joe Rivero M.D. 11/13/2024 11:[address] 11/13/24 12:33 CT head/brain wo con CLINICAL HISTORY: 79 years-old Female with confusion. Acutely altered mental status TECHNIQUE: Multiple axial CT images of the head were obtained without contrast. A dose lowering technique was utilized adhering to the principles of ALARA. CT DOSE: 625.8 mGy.cm COMPARISON: None. FINDINGS: No acute intracranial hemorrhage, midline shift, intracranial mass, hydrocephalus, territorial ischemia or abnormal extra-axial collection. Involutional changes with white matter hypodensities suggestive of chronic microvascular ischemic disease. The calvarium is intact. The paranasal sinuses, mastoid air cells, and middle ear cavities are clear. IMPRESSION: No acute intracranial abnormality. ACT 112: Negative or not required by law. The above report was generated using voice recognition software. It may contain grammatical, syntax or spelling errors. Electronically signed by: Mitesh Ramos M.D. 11/13/2024 1:34 PM Code Status & VTE Plan Code Status DNR/DNI Supervising Physician Co-Signing Physician Notes Presents from [facility] for fever and confusion. Patient reports that for the past 24 hours, she has been feeling weaker, febrile, poor appetite, body aches. Daughter also reports that more recently she has been a little more confused and forgetful. On exam, General: Elderly woman in no distress Eyes: PERRL, conjunctivae normal, not pale, anicteric sclerae, EOM intact bilaterally ENMT: External ear and nose normal, oropharynx normal Respiratory: Normal respiratory effort, no respiratory distress, lungs clear to auscultation, no crackles and no wheezes Cardiovascular: RRR S1 S2 Gastrointestinal (Abdomen): Abdomen is not distended, soft,+suprapubic tenderness, normal bowel sounds Musculoskeletal: No pedal edema Genitourinary: No CVA tenderness Neurologic: Alert and oriented x person and place. Does not recall her year Psychiatric: Normal mood and affect Labs notable for WBC of 4.45, hemoglobin of 10.8, alkaline phosphatase of 137, procalcitonin of 18.9 [procalcitonin was 2.51, 10/07/2024]. Fever in a patient with recent hospitalization for Staphylococcus epidermidis bacteremia, psoas muscle abscess, osteomyelitis of the lumbar vertebra,AML on IV vancomycin for 6 to 8 weeks who presents with low-grade fevers and report of confusion. Got daptomycin and cefepime in the ER. Will get Vanco level and continue IV vancomycin for now. Get MRI lumbar spine to reassess. Follow-up blood cultures. Daughter and patient reports some difficulty urination since being in the ER. Exam notable for suprapubic tenderness. RN to bladder scan UA not suggestive of UTI If signs of urinary retention, will get kidney bladder ultrasound, consider Chu placement. Reviewed previous imaging. Daughter reports patient has been forgetful somewhat confused recently. CT head did not show any acute abnormalities Will consider possible recent medication changes contributory. Other plans as detailed by Nicole HOLLY (5) AML (acute myeloblastic leukemia) Leukemia Active/Remission status: without remission Qualified Code(s): C92.00 - Acute myeloblastic leukemia, not having achieved remission
--- NOTE | 2024-11-13 13:37 | CT Scan Report ---
CT head/brain wo con CLINICAL HISTORY: 79 years-old Female with confusion. Acutely altered mental status TECHNIQUE: Multiple axial CT images of the head were obtained without contrast. A dose lowering tech nique was utilized adhering to the principles of ALARA. CT DOSE: 625.8 mGy.cm COMPARISON: None. FINDINGS: No acute intracranial hemorrhage, midline shift, intracranial mass, hydrocephalus, territorial ischem ia or abnormal extra-axial collection. Involutional changes with white matter hypodensities suggestiv e of chronic microvascular ischemic disease. The calvarium is intact. The paranasal sinuses, mastoid air cells, and middle ear cavities are clear . IMPRESSION: No acute intracranial abnormality. ACT 112: Negative or not required by law. The above report was generated using voice recognition software. It may contain grammatical, syntax o r spelling errors. Electronically signed by: Mitesh Ramos M.D. 11/13/2024 1:34 PM
--- NOTE | 2024-11-13 13:51 | Magnetic Resonance Report ---
MR lumbar spine wo con CLINICAL HISTORY: fever iso previous ir drain. COMPARISON: 10/27/2024 TECHNIQUE: Multiplanar, multi sequence MRI of the lumbar spine was performed without intravenous cont rast. FINDINGS: There is motion artifact. Conus medullaris terminates normally at L1. There are diffuse deg enerative changes with stable grade 1 anterolisthesis of L4 on 5. Vertebral body compression fracture with severe height loss at L1 is stable. Stable retropulsion of the posterior aspect of the L1 verte bral body. Vertebral body compression fractures at L2 and L3 with moderate height loss are stable. No interval fracture seen. Very small psoas intramuscular hematomas are decreased in size. L1-2: Stable retropulsion of the posterior aspect of the L1 vertebral body. No significant central ca nal narrowing seen. There is moderate right and mild left neural foraminal narrowing. L2-3: There is a mild disc bulge. No significant central canal or neural foraminal narrowing. L3-4: There is a mild disc bulge with mild ligamentum flavum and facet hypertrophy. No significant ce ntral canal narrowing. There is mild right and moderate left neural foraminal narrowing. L4-5: Stable grade 1 anterolisthesis and mild disc bulge. There is facet hypertrophy. There is modera te central canal narrowing. There is moderate right and mild left neural foraminal narrowing. L5-S1: No significant central canal narrowing. There is mild bilateral foraminal narrowing. IMPRESSION: No adverse change seen. ACT 112: Negative or not required by law. The above report was generated using voice recognition software. It may contain grammatical, syntax o r spelling errors. Electronically signed by: Joe Rivero M.D. 11/13/2024 1:48 PM
[2024-11-13 14:01] LABS: Chlamydia pneumoniae PCR Not Detected (NotDetected); Coronavirus 229E PCR Not Detected (NotDetected); Coronavirus CoV-2 (COVID19)PCR Not Detected (NotDetected); Coronavirus HKU1 PCR Not Detected (NotDetected); Coronavirus NL63 PCR Not Detected (NotDetected); Coronavirus OC43PCR Not Detected (NotDetected); Human Metapneumovirus PCR Not Detected (NotDetected); Parainfluenza Virus 1 PCR Not Detected (NotDetected); Parainfluenza Virus 2 PCR Not Detected (NotDetected); Parainfluenza Virus 3 PCR Not Detected (NotDetected); Parainfluenza Virus 4 PCR Not Detected (NotDetected); Respiratory Syncytial VirusPCR Not Detected (NotDetected); Rhinovirus/Enterovirus PCR Not Detected (NotDetected)
[2024-11-13 14:28] LABS: Appearance Urine Clear (Clear); Glucose Urine UA Negative (Negative)
[2024-11-13] MEDS ORDERED: GLUCOSE 10 TAB/TUBE PO PRN (14:30)
[2024-11-13] MEDS ORDERED: GLUCOSE 40% GEL 15 GM TUBE PO PRN (14:30)
[2024-11-13] MEDS ORDERED: ALUMINUM/MAGNESIUM SUSP 30 ML UDC PO PRN (14:30)
[2024-11-13] MEDS ORDERED: POLYETHYLENE (MIRALAX) 17 GM PACK PO PRN (14:30)
[2024-11-13] MEDS ORDERED: DEXTROSE 50% 50 ML SYRINGE IV PRN (14:30)
[2024-11-13] MEDS ORDERED: GLUCAGON FOR INJ 1 MG VIAL SQ PRN (14:30)
--- NOTE | 2024-11-13 15:44 | Pharmacy Report ---
Pharmacy PK ABX Note - Date of Service November 13, 2024 - Assessment and Plan Assessment 79 year old F receiving Vancomycin for treatment of bacteremia. * Patient had staph epidermidis bacteremia secondary to bilateral iliopsoas muscle fluid collection s/p IR drainage. Grew staph epi in blood cultures on 10/13/24 at [facility] and first set of negative cultures were 10/15/24. Per [facility] ID, patient to be on IV vancomycin for 6-8 weeks (earliest end date would be 11/26/24). * Patient discharged to [facility] for rehab. She was receiving 750 mg of IV vancomycin at their facility (0730,1530,2330). Per RN at [facility], patient received approximately half a bag of vanc at 0730 prior to coming to ED today for fevers. * Febrile here without leukocytosis. Procal is significantly elevated at almost 19. Repeat blood cultures pending. * Random level returned at 10.2 mcg/mL today which is therapeutic. This is concerning for vancomycin failure so patient received Dapto in the ED. ID consult recommended as another agent may be warranted at this time. Plan Vancomycin * Random level this afternoon was 10.2 mcg/mL. This is therapeutic. * Continue outpatient dose of 750 mg IV every 8 hours * Regimen is predicted to achieve target AUC/ARNOLD of 400-600 mg/L.hr * Random level ordered for: 11/15/24 Pharmacy will continue to follow and will adjust dose/frequency as necessary. Thank you. Pharmacy has transitioned to AUC monitoring for vancomycin. AUC/ARNOLD is the preferred PK/PD target and is associated with decreased risk of nephrotoxicity compared to traditional trough targets.
[2024-11-13] MEDS: ENOXAPARIN INJ 40 MG/0.4 ML SYR SQ STA (16:49)
[2024-11-13] MEDS: VANCOMYCIN 750 MG in SODIUM CHLORIDE 0.9% 250 ML IV SCH (16:49)
[2024-11-13] MEDS: INSULIN ASPART PER UNIT CHARGE SC SCH (17:39)
[2024-11-13] MEDS: ACETAMINOPHEN 325 MG TAB PO PRN (17:41)
[2024-11-13] MEDS: ALTEPLASE, RECOMBINANT 1 MG/ML 2ML VIAL INSTIL ONE (18:28)
[2024-11-13] MEDS: ACETAMINOPHEN 500 MG TAB PO SCH (18:59)
[2024-11-13] MEDS: PREGABALIN 25 MG CAP PO SCH (20:02)
[2024-11-13] MEDS ORDERED: HEPARIN SOD 5,000 UNIT/0.5 ML VIAL SQ SCH (21:00)
[2024-11-13] MEDS: DOCUSATE SODIUM/SENNA 50/8.6MG TAB PO SCH (21:54)
[2024-11-13] MEDS: VORICONAZOLE 200 MG TABLET PO SCH (21:54)
[2024-11-13] MEDS: ONDANSETRON INJ 2 MG/ML 2 ML VIAL IV PRN (21:55)
[2024-11-13] MEDS: ACYCLOVIR 400 MG TAB PO SCH (21:56)
[2024-11-13] MEDS: REMOVE LIDODERM PATCH SCH (21:56)
[2024-11-13] MEDS: ATORVASTATIN 20 MG TAB PO SCH (21:56)
[2024-11-13] MEDS: MIRTAZAPINE TAB 15 MG TAB PO SCH (21:57)
[2024-11-14] MEDS: PROMETHAZINE 12.5 MG/50.5 ML BAG IV STA (02:15)
[2024-11-14 06:50] LABS: Hematocrit (blood only) 31.7 % (37.0-47.0); Hemoglobin 10.0 g/dl (12.0-16.0); Mean Corpuscular Hemoglobin 31.3 pg (25.0-34.0); Mean Corpuscular Volume 99.1 fL (80.0-100.0); Platelet Count 181 K/uL (130-400); RDW Standard Deviation 62.3 fL (36.4-46.3); Red Blood Count 3.20 M/uL (4.20-5.40); White Blood Count 6.79 K/ul (4.8-10.8)
[2024-11-14 07:13] LABS: Anion Gap 13.0 (3-11); Blood Urea Nitrogen 8.0 mg/dl (6-23); Calcium 8.3 mg/dl (8.6-10.3); Carbon Dioxide 20.0 mmol/L (21-32); Chloride 106.0 mmol/L (98-107); Creatinine Clr Calc Pharmacy 107.1 ml/min; Glucose 92.0 mg/dl (70-99(Fasting)); Potassium 3.3 mmol/L (3.5-5.1); Sodium 139.0 mmol/L (136-145)
[2024-11-14] MEDS: POLYETHYLENE (MIRALAX) 17 GM PACK PO SCH (08:34)
[2024-11-14 09:42] LABS: Thyroid Stimulating Hormone 0.57 uIu/ml (0.300-4.500)
[2024-11-14] MEDS: OPTIRAY 320 100ml IV ONE (09:52)
[2024-11-14] MEDS: LACTATED RINGER'S 1,000 ML IV SCH (10:15)
[2024-11-14] MEDS: CYANOCOBALAMIN (B-12) 500 MCG TABLET PO SCH (10:16)
[2024-11-14] MEDS: POTASSIUM CHLORIDE CRTAB 20 MEQ TABCR PO SCH (10:23)
[2024-11-14] MEDS: LIDOCAINE 5% 1 PATCH TD SCH (10:28)
--- NOTE | 2024-11-14 10:33 | CT Scan Report ---
ABDOMEN AND PELVIS CT WITH IV CONTRAST CT DOSE: 748.01 mGy.cm HISTORY: concern for worsening abscesses TECHNIQUE: Multiaxial CT images of the abdomen and pelvis were performed following the IV administrat ion of 90 cc of Optiray, A dose lowering technique was utilized adhering to the principles of ALARA. COMPARISON STUDY: 10/07/2024 CT and MRI of the lumbar spine yesterday. FINDINGS: ABDOMEN: Liver, gallbladder, spleen, pancreas, and adrenal glands are unremarkable. Kidneys show no h ydronephrosis. Large calcification at the right UPJ is stable. There are scattered atherosclerotic ca lcifications. No abdominal aortic aneurysm. Pelvis: Uterus is absent. No adnexal mass seen. Urinary bladder is decompressed. There is moderate re tained stool. No bowel inflammation or obstruction seen. No free fluid, free air, or abscess. No enla rged adenopathy. Osseous structures: There is osteopenia. Vertebral body compression fractures at L1, L2, and L3 are s table compared to the MRI yesterday. The vertebral body compression fracture at L2 is mildly progress yisel compared with the [address] Stable degenerative changes. No significant paraspinal soft tissu e hematoma or drainable abscess seen. IMPRESSION: No adverse change seen. Otherwise as described. ACT 112: Negative or not required by law. The above report was generated using voice recognition software. It may contain grammatical, syntax o r spelling errors. Electronically signed by: Joe Rivero M.D. 11/14/2024 10:32 AM
[2024-11-14] MEDS: ADVANCED PROBIOTIC 625 MG CAPSULE PO SCH (10:34)
[2024-11-14] MEDS: CITALOPRAM 20 MG TAB PO SCH (10:34)
--- NOTE | 2024-11-14 11:16 | Infectious Disease Consult ---
Date of Service November 14, 2024 Telehealth Information I performed this visit using a real-time telehealth connection between my location and the patients location ([facility]). After connecting through interactive tele-video, patient was identified by name and date of and/or wristband check.Patient (or authorized healthcare wine sales representative) was informed that this was a telemedicine visit and it was being conducted confidentially over secure lines. My office door was closed and no one else was present in the room with me.Patient (or authorized healthcare wine sales representative) provided consent to proceed with the visit, expressed an understanding of privacy and security of the telemedicine visit, and gave permission to have a hospital wine sales representative in the room in order to assist with the visit and to conduct portions of the visit, as needed. I informed the patient (or authorized healthcare wine sales representative) that I reviewed their record and presented the opportunity for them to ask any questions regarding the visit today. The patient agreed to participate. Assessment & Plan (1) Osteomyelitis of lumbar vertebra: Plan: On IV vancomycin (2) Psoas muscle abscess: Plan: Resolved Plan Patient with history AML and of bilateral psoas abscess and staph epidermidis who was discharged on vancomycin for 6 weeks(scheduled to be completed in November 2024) who presented from Rehab with fever and confusion .Her cultures are so far negative repeat MRI of spine showed only small psoas hematoma .She has been continued on IV vancomycin and her acyclovir and voriconazole has been continued .She is afebrile and dose not have leukocytosis recommend continuing her current antibiotic regimen and follow up her cultures .Thank you for allowing us to participate in the care of this patient ID will continue to follow History of Present Illness History of Present Illness 79 y/o F PMHx HTN, HLD, DMII, history of pericardial effusion, PSVT s/p ablation in 2004, GERD with esophagitis, primary osteoarthritis of both knees, persistent insomnia, spinal stenosis of lumbar region, sacroiliitis, AML currently undergoing chemotherapy with decitabine/venetoclax on infectious prophylaxis with acyclovir/voriconazole/Levaquin, and lumbar compression fractures who was recently admitted for bilateral iliopsoas muscle fluid collections and staph epidermidis bacteremia and discharged to [facility] for rehab on IV vancomycin for 6 weeks who presented to the ED on 11/13/2024 with fevers and confusion. Ongoing fevers Allergies Allergy/AdvReac Type Severity Reaction Status Date / Time No Known Allergies Allergy Mild Verified 09/17/24 11:27 Home Medications Medication Instructions Recorded Confirmed Type decitabine 50 mg intravenous 0 mg IV MONTHLY 09/10/24 11/13/24 History solution L.acidop,casei,lactis,rham-B.lact,liz 1 cap PO DAILY #30 caps 11/05/24 11/13/24 Rx 625 mg (10 billion cell) capsule (Advanced Probiotic) acetaminophen 500 mg tablet 1,000 mg (2 x 500 mg) PO Q8H #300 11/05/24 11/13/24 Rx (Tylenol Extra Strength) tabs acyclovir 400 mg tablet 400 mg PO BID #60 tabs 11/05/24 11/13/24 Rx amlodipine 10 mg tablet 5 mg (1/2 x 10 mg) PO QAM #30 tabs 11/05/24 11/13/24 Rx atorvastatin 20 mg tablet 20 mg PO HS #30 tabs 11/05/24 11/13/24 Rx citalopram 10 mg tablet 20 mg (2 x 10 mg) PO QAM #60 tabs 11/05/24 11/13/24 Rx cyanocobalamin (vitamin B-12) 500 1,000 mcg (2 x 500 mcg) PO QAM #30 11/05/24 11/13/24 Rx mcg tablet tabs enoxaparin 40 mg/0.4 mL 40 mg (0.4 mL) subcut Q24H #30 mL 11/05/24 11/13/24 Rx subcutaneous syringe (Lovenox) lidocaine 5 % topical patch 1 patch transdermal QAM #30 ea 11/05/24 11/13/24 Rx melatonin 5 mg tablet 5 mg PO HS PRN Insomnia #10 tabs 11/05/24 11/13/24 Rx mirtazapine 15 mg tablet 7.5 mg (1/2 x 15 mg) PO HS #15 tabs 11/05/24 11/13/24 Rx ondansetron HCl 4 mg tablet 4 mg PO Q6H PRN Nausea And 11/05/24 11/13/24 Rx Vomiting #30 tabs oxycodone 15 mg tablet,crush 15 mg PO Q12 #20 tabs 11/05/24 11/13/24 Rx resistant,extended release 12 hr (OxyContin) oxycodone 5 mg tablet 5 mg PO Q6H PRN pain #10 tabs 11/05/24 11/13/24 Rx polyethylene glycol 3350 17 gram 17 g PO DAILY #30 ea 11/05/24 11/13/24 Rx oral powder packet (Miralax) potassium chloride 20 mEq 20 meq PO DAILY #30 tabs 11/05/24 11/13/24 Rx tablet,extended release(part/cryst) pregabalin 25 mg capsule 25 mg PO TID #90 caps 11/05/24 11/13/24 Rx sennosides 8.6 mg-docusate sodium 1 tab PO BID #60 tabs 11/05/24 11/13/24 Rx 50 mg tablet (Senokot-S) vancomycin 750 mg intravenous 750 mg IV Q8H #10 ea 11/05/24 11/13/24 Rx solution voriconazole 200 mg tablet 200 mg PO Q12 #60 tabs 11/05/24 11/13/24 Rx gabapentin 100 mg capsule 300 mg PO HS 11/13/24 11/13/24 History Patient History Medical History Compression fracture of L1 vertebra Pericardial effusion History of - 02/2024- evaluated by [facility] cardio- felt related to AML and/or chemo treatments- repeat ECHOs showed improvement (most recent ECHO 05/2024) Lumbar spondylosis Biceps tendinitis of right shoulder Anxiety HTN (hypertension) Diabetes mellitus type II, controlled no meds most recent Hgb A1C 12/2024 was 7.5 History of cellulitis 12/2023 per records Hx of acute respiratory failure (01/2024) had been at [facility], transferred to [facility]- resolved AML (acute myeloblastic leukemia) (12/2023) [facility]- dr. oliver- gets chemo 1 week every month unless wbc is off, last chemo was week of august 31. has blood drawn weekly at [facility] SVT (supraventricular tachycardia) (2004) History of SVT- s/p 2004- no issues since. Sciatica Elevated cholesterol Controlled with statin Surgical History Port-A-Cath in place (10/14/24) Removal of A-port(Left) - Randall Treviño DO History of insertion of tunneled central venous catheter (CVC) with port (01/2024) right side armstrong cath placed in [place] History of left knee replacement (2019) History of bone marrow biopsy (07/17/24) x3- [place] and [facility] S/P epidural steroid injection sciatica History of appendectomy (1967) H/O cardiac radiofrequency ablation (2004) 2004 H/O: hysterectomy (1989) MONICA with BSO Family History Father Cancer Other Coronary heart disease Diabetes Leukemia No family history of adverse response to anesthesia Social History (Updated 11/13/24 @ 15:11 by AVNI Milner) Smoking Status: Never smoker Second Hand Exposure: No; Do You Dip or Chew Tobacco: No; Hx Alcohol Use: No Hx Substance Use: No Preferred Language: Yemeni Communication Ability: Effective Visual Impairment: No Limitations Dope Mixer Required: No Beliefs That Will Affect Care: None marital status: Current Living Situation: Family Current Living Situation Comment: previously lived w/daughter & grandson Feels Safe at Home: Yes Assistive Devices: Cane Results & Data Vital Signs (Past 12 Hours) Vital Signs Temp Pulse Resp BP Pulse Ox O2 Del Method 11/14/24 10:17 152/80 H 11/14/24 07:50 36.4 C L 81 17 143/82 H 98 Room Air Laboratory Results WBC 6790 Hb 10.0 and PLT 432852 Blood Culture Aerobic Preliminary 11/14/24-1100 No growth in Aerobic bottle after 24 hours. Blood Culture Anaerobic PENDING Diagnostic Findings FINDINGS: ABDOMEN: Liver, gallbladder, spleen, pancreas, and adrenal glands are unremarkable. Kidneys show no hydronephrosis. Large calcification at the right U PJ is stable. There are scattered atherosclerotic calcifications. No abdominal aortic aneurysm. Pelvis: Uterus is absent. No adnexal mass seen. Urinary bladder is decompressed. There is moderate retained stool. No bowel inflammation or obstruction seen. No free fluid, free air, or abscess. No enlarged adenopathy. Osseous structures: There is osteopenia. Vertebral body compression fractures at L1, L2, and L3 are stable compared to the MRI yesterday. The vertebral body compression fracture at L2 is mildly progressive compared with the [address] Stable degenerative changes. No significant paraspinal soft tissue hematoma or drainable abscess seen. IMPRESSION: No adverse change seen. Otherwise as described. FINDINGS: There is motion artifact. Conus medullaris terminates normally at L1. There are diffuse degenerative changes with stable grade 1 anterolisthesis of L4 on 5. Vertebral body compression fracture with severe height loss at L1 is stable. Stable retropulsion of the posterior aspect of the L1 vertebral body. Vertebral body compression fractures at L2 and L3 with moderate height loss are stable. No interval fracture seen. Very small psoas intramuscular hematomas are decreased in size. L1-2: Stable retropulsion of the posterior aspect of the L1 vertebral body. No significant central canal narrowing seen. There is moderate right and mild left neural foraminal narrowing. L2-3: There is a mild disc bulge. No significant central canal or neural foraminal narrowing. L3-4: There is a mild disc bulge with mild ligamentum flavum and facet hypertrophy. No significant central canal narrowing. There is mild right and moderate left neural foraminal narrowing. L4-5: Stable grade 1 anterolisthesis and mild disc bulge. There is facet hypertrophy. There is moderate central canal narrowing. There is moderate right and mild left neural foraminal narrowing. L5-S1: No significant central canal narrowing. There is mild bilateral foraminal narrowing. IMPRESSION: No adverse change seen.
[2024-11-14] MEDS: ENOXAPARIN INJ 40 MG/0.4 ML SYR SQ SCH (12:35)
--- NOTE | 2024-11-14 14:58 | Pharmacy Report ---
Pharmacy PK ABX Note - Date of Service November 14, 2024 - Assessment and Plan Assessment 11/14: * Vancomycin level drawn today was 18.7 which extrapolates to an AUC in the goal range. She is to continue current vancomycin regimen. * ID reconsulted this visit and their recommendation is to continue her current antibiotic regimen with anticipated 6 week course total of vancomycin. 11/13: 79 year old F receiving Vancomycin for treatment of bacteremia. * Patient had staph epidermidis bacteremia secondary to bilateral iliopsoas muscle fluid collection s/p IR drainage. Grew staph epi in blood cultures on 10/13/24 at [facility] and first set of negative cultures were 10/15/24. Per Demond ID, patient to be on IV vancomycin for 6-8 weeks (earliest end date would be 11/26/24). * Patient discharged to [facility] for rehab. She was receiving 750 mg of IV vancomycin at their facility (0730,1530,2330). Per RN at [facility], patient received approximately half a bag of vanc at 0730 prior to coming to ED today for fevers. * Febrile here without leukocytosis. Procal is significantly elevated at almost 19. Repeat blood cultures pending. * Random level returned at 10.2 mcg/mL today which is therapeutic. This is concerning for vancomycin failure so patient received Dapto in the ED. ID c onsult recommended as another agent may be warranted at this time. Plan Vancomycin * Random level this afternoon was 18.7 mcg/mL. This extrapolates to an AUC in the goal range. * Continue outpatient dose of 750 mg IV every 8 hours * Regimen is predicted to achieve target AUC/ARNOLD of 400-600 mg/L.hr * Another random level will be ordered in the next few days. Pharmacy will continue to follow and will adjust dose/frequency as necessary. Thank you. Pharmacy has transitioned to AUC monitoring for vancomycin. AUC/ARNOLD is the preferred PK/PD target and is associated with decreased risk of nephrotoxicity compared to traditional trough targets.
--- NOTE | 2024-11-14 15:35 | Hospitalist Progress Note ---
Date of Service November 14, 2024 Assessment & Plan (1) Fever: (2) Altered mental status: (3) Bacteremia: (4) Compression fracture of lumbar vertebra: (5) AML (acute myeloblastic leukemia): (6) Dyslipidemia: (7) HTN (hypertension): (8) Anxiety: (9) Diabetes mellitus type II, controlled: Plan 79 year old female with PMH significant for HTN, HLD, DMII, history of pericardial effusion, PSVT s/p ablation in 2004, GERD with esophagitis, primary osteoarthritis of both knees, persistent insomnia, spinal stenosis of lumbar region, sacroiliitis, AML currently undergoing chemotherapy with decitabine/venetoclax on infectious prophylaxis with acyclovir/voriconazole/Levaquin, and lumbar compression fractures who was recently admitted for bilateral iliopsoas muscle fluid collections and staph epidermidis bacteremia and discharged to [facility] for rehab who presents to the E D on 11/13/2024 with fevers and confusion. Fever History of bilateral iliopsoas muscle fluid collection s/p IR drainage History of staph epidermidis bacteremia -at [facility] fever up to 103 reported, chills, dehydration -Labs revealed no leukocytosis, lactate 2.0, elevated procal 18.9 -CXR negative, unremarkable CT abdomen pelvis ordered by this provider, lumbar spine unremarkable -appears dry on exam -differential is broad at this time, could simply be dehydration or drug fever, alternatively could be a meningitis/encephalitis given patient being altered, other considerations could be AML, less likely vasculitis or autoimmune causes -no localizing symptoms other than mental status change and fever, fever of which has not been witnessed here Plan: -Continue with vancomycin from previous admission recommended by ID for staph epidermidis bacteremia -Follow blood cultures -check ESR, CRP -check AML labs such as uric acid, LDH, peripheral smear with pathology review to rule out impending AML relapse as cause of fever -LR 100cc/hr given appears clinically dry -ID consulted, appreciate recs -if has fever overnight or worsening mental status will consider lumbar puncture Metabolic Encephalopathy -Patient presenting with confusion described as forgetful/foggy by her daughter -Head CT negative Plan: -stop gabapentin/pregablin given concerns for worsening mental status L1 and L3 compression fractures -Continue PT/OT therapy while inpatient -Continue pain regimen from previous admission recommended by palliative care AML undergoing chemotherapy Chronic blood loss anemia History of pancytopenia -Last received chemo in August due to hospitalization/rehab stays -Blood counts stable -Continue suppressive antibiotics including levaquin, voriconazole, acyclovir Hypertension -Continue amlodipine Hyperlipidemia -Continue statin Anxiety/depression -Continue citalopram and mirtazapine doses from previous admission recommended by psych Type 2 diabetes -BSG ACHS and SSI Discussed plan of care with daughter who is agreeable and appreciative of the plan. I spent a total of 55 minutes in direct patient care, including [id number] time with the patient and/or family, reviewing medical records, ordering and reviewing diagnostic tests, and coordinating care with other healthcare providers. This time includes: history taking, physical examination, medical decision making, counseling, ECG interpretation, imaging interpretation, lab interpretation, orders, and education, excluding time spent in the performance of separately billed services. Admission and Anticipated Discharge Date Admission Date: November 13, 2024 Subjective Patient seen and examined at bedside. Patient looks dehydrated and fatigued compared to prior visit. States she feels ill overall. Had chills, fevers at longterm. Muscle aches as well. Review of Systems Review of Systems: CONSTITUTIONAL: fatigue, weakness, chills EYES: Patient denies any visual symptoms. EARS, NOSE, AND THROAT: No difficulties with hearing. No symptoms of rhinitis or sore throat. CARDIOVASCULAR: Patient denies chest pains, palpitations, orthopnea and paroxys mal nocturnal dyspnea. RESPIRATORY: No dyspnea on exertion, no wheezing or cough. GI: No nausea, vomiting, diarrhea, constipation, abdominal pain, hematochezia or melena. : No urinary hesitancy or dribbling. No nocturia or urinary frequency. No abnormal urethral discharge. MUSCULOSKELETAL: No myalgias or arthralgias. NEUROLOGIC: No chronic headaches, no seizures. Patient denies numbness, tingling or weakness. PSYCHIATRIC: Patient denies problems with mood disturbance. No problems with anxiety. ENDOCRINE: No excessive urination or excessive thirst. DERMATOLOGIC: Patient denies any rashes or skin changes. Physical Exam Physical Exam: Gen: A&O 3 NAD, cachexia and sarcopenia noted HEENT: NCAT, EOMI, not icteric. External ears normal. No rhinorrhea. Dry mucous membranes. Neck: Supple, full range of motion, no observable masses, No meningeal sign. Lungs: No Respiratory distress. CV: RRR, no edema. Abdomen: Soft, nondistended, No rebound tenderness. MSK: No joint swelling, no redness. Skin: No rashes, petechiae, lesions. Normal color per patient. Neuro: Normal Gait, Grossly intact. Psych: Appropriate for situation. Results & Data Results & Data Vital Signs (Past 12 Hours) Vital Signs Temp Pulse Resp BP Pulse Ox O2 Del Method 11/14/24 15:07 36.3 C L 89 16 129/76 97 Room Air 11/14/24 10:17 152/80 H 11/14/24 07:50 36.4 C L 81 17 143/82 H 98 Room Air 11/14/24 07:45 Room Air Laboratory Results -personally reviewed, no leukocytosis, Hgb stable, creatinine downtrending Medications Administered Acetaminophen (Acetaminophen 325 Mg Tab) 650 mg PO Q4H PRN PRN Reason: pain/fever Stop: 12/13/24 14:29 Last Admin: 11/13/24 17:41 Dose: 650 mg Documented By: LUCY Acetaminophen (Acetaminophen 500 Mg Tab) 1,000 mg PO Q8 [place] Stop: 12/13/24 17:59 Last Admin: 11/14/24 13:48 Dose: 1,000 mg Documented By: Admin: 11/14/24 06:21 Dose: 1,000 mg Documented By: Admin: 11/13/24 18:59 Dose: Not Given Documented By: CLEMENTINA Acyclovir (Acyclovir 400 Mg Tab) 400 mg PO BID [place] Stop: 12/13/24 20:59 Last Admin: 11/14/24 10:17 Dose: 400 mg Documented By: Admin: 11/13/24 21:56 Dose: 400 mg Documented By: CLEMENTINA Amlodipine Besylate (Amlodipine Besylate 5 Mg Tab) 5 mg PO QAM [place] Stop: 12/14/24 08:59 Last Admin: 11/14/24 10:18 Dose: 5 mg Documented By: JOSEPHINE Atorvastatin Calcium (Atorvastatin 20 Mg Tab) 20 mg PO HS [place] Stop: 12/13/24 20:59 Last Admin: 11/13/24 21:56 Dose: 20 mg Documented By: CLEMENTINA Citalopram Hydrobromide (Citalopram 20 Mg Tab) 20 mg PO QAM [place] Stop: 12/14/24 08:59 Last Admin: 11/14/24 10:34 Dose: Not Given Documented By: JOSEPHINE Cyanocobalamin (Cyanocobalamin (B-12) 500 Mcg Tablet) 1,000 mcg PO QAM [place] Stop: 12/14/24 08:59 Last Admin: 11/14/24 10:16 Dose: Not Given Documented By: JOSEPHINE Enoxaparin Sodium (Enoxaparin Inj 40 Mg/0.4 Ml Syr) 40 mg SQ QAM [place] Stop: 12/14/24 08:59 Last Admin: 11/14/24 12:35 Dose: 40 mg Documented By: JOSEPHINE Heparin Sodium (Beef Lung) (Heparin 10 Unit/Ml 5 Ml Flush) 5 ml FLUSH PRN PRN PRN Reason: Flush Stop: 12/13/24 18:03 Last Admin: 11/13/24 20:42 Dose: 5 ml Documented By: WILLY Vancomycin HCl 750 mg/ Sodium (Chloride) 265 mls @ 200 mls/hr IV Q8H [place] Stop: 11/27/24 15:59 Last Infusion: 11/14/24 10:15 Dose: Infused Documented By: Admin: 11/14/24 08:30 Dose: 200 mls/hr Documented By: Infusion: 11/14/24 00:43 Dose: Infused Documented By: Admin: 11/13/24 23:22 Dose: 200 mls/hr Documented By: Infusion: 11/13/24 18:26 Dose: Infused Documented By: Admin: 11/13/24 16:49 Dose: 200 mls/hr Documented By: LUCY Lactated Ringer's (Lr) 1,000 mls @ 100 mls/hr IV .Q10H [place] Stop: 11/15/24 00:00 Last Admin: 11/14/24 10:15 Dose: 100 mls/hr Documented By: JOSEPHINE Insulin Aspart (Insulin Aspart Per Unit Charge) 0 units SC ACHS [place] Stop: 12/13/24 16:29 Last Admin: 11/14/24 12:39 Dose: Not Given Documented By: JOSEPHINE Co-signed By: JOSEPHINE(2) Admin: 11/14/24 09:37 Dose: Not Given Documented By: JOSEPHINE Co-signed By: JENNIFER Admin: 11/13/24 20:46 Dose: Not Given Documented By: Admin: 11/13/24 17:39 Dose: Not Given Documented By: LUCY Lactobacillus Acidophilus (Advanced Probiotic 625 Mg Capsule) 1,250 mg PO DAILY [place] Stop: 12/14/24 08:59 Last Admin: 11/14/24 10:34 Dose: Not Given Documented By: JOSEPHINE Lidocaine (Lidocaine 5% 1 Patch) 1 patch TD QAM [place] Stop: 12/14/24 08:59 Last Admin: 11/14/24 10:28 Dose: Not Given Documented By: JOSEPHINE Mirtazapine (Mirtazapine Tab 15 Mg Tab) 7.5 mg PO HS [place] Stop: 12/13/24 20:59 Last Admin: 11/13/24 21:57 Dose: 7.5 mg Documented By: CLEMENTINA Miscellaneous (Remove Lidoderm Patch) 1 each N/A DAILY@2100 [place] Stop: 12/13/24 20:59 Last Admin: 11/13/24 21:56 Dose: 1 each Documented By: CLEMENTINA Ondansetron HCl (Ondansetron Inj 2 Mg/Ml 2 Ml Vial) 4 mg IV Q6H PRN PRN Reason: Nausea Stop: 12/13/24 14:29 Last Admin: 11/14/24 11:30 Dose: 4 mg Documented By: Admin: 11/14/24 05:21 Dose: 4 mg Documented By: Admin: 11/13/24 21:55 Dose: 4 mg Documented By: CLEMENTINA Oxycodone HCl (Oxycodone Hcl 15 Mg Tabcr (Oxycontin)) 15 mg PO Q12 [place] Stop: 11/27/24 20:59 Last Admin: 11/14/24 10:23 Dose: 15 mg Documented By: Admin: 11/13/24 21:58 Dose: Not Given Documented By: CLEMENTINA Polyethylene Glycol (Polyethylene (Miralax) 17 Gm Pack) 17 gm PO DAILY [place] Stop: 12/14/24 08:59 Last Admin: 11/14/24 08:34 Dose: Not Given Documented By: JOSEPHINE Potassium Chloride (Potassium Chloride Crtab 20 Meq Tabcr) 20 meq PO DAILY EBLGICA Stop: 12/14/24 08:59 Last Admin: 11/14/24 10:23 Dose: Not Given Documented By: JOSEPHINE Senna/Docusate Sodium (Docusate Sodium/Senna 50/8.6mg Tab) 1 tab PO BID [place] Stop: 12/13/24 20:59 Last Admin: 11/14/24 08:34 Dose: Not Given Documented By: Admin: 11/13/24 21:54 Dose: 1 tab Documented By: CLEMENTINA Voriconazole (Voriconazole 200 Mg Tablet) 200 mg PO Q12 [place] Stop: 12/13/24 20:59 Last Admin: 11/14/24 10:16 Dose: 200 mg Documented By: Admin: 11/13/24 21:54 Dose: 200 mg Documented By: CLEMENTINA (5) AML (acute myeloblastic leukemia) Leukemia Active/Remission status: without remission Qualified Code(s): C92.00 - Acute myeloblastic leukemia, not having achieved remission
[2024-11-14 17:16] LABS: Uric Acid 3.2 mg/dl (2.6-7.2)
[2024-11-14 17:46] LABS: Hematocrit (blood only) 30.3 % (37.0-47.0); Hemoglobin 9.7 g/dl (12.0-16.0); Mean Corpuscular Hemoglobin 31.7 pg (25.0-34.0); Mean Corpuscular Volume 99.0 fL (80.0-100.0); Platelet Count 129 K/uL (130-400); RDW Standard Deviation 62.9 fL (36.4-46.3); Red Blood Count 3.06 M/uL (4.20-5.40); White Blood Count 5.19 K/ul (4.8-10.8)
[2024-11-14 17:47] LABS: Anisocytosis Present; Immature Granulocytes # (auto) 0.06 K/uL (0.01-0.20); Immature Granulocytes % (auto) 1.2 %; Ovalocytes 1+; Tear Drop Cells 1+
[2024-11-14] MEDS: LORazepam 0.5 MG TAB PO PRN (17:53)
[2024-11-14] MEDS: MELATONIN 3 MG TAB PO PRN (21:02)
[2024-11-15 04:17] LABS: Hematocrit (blood only) 25.0 % (37.0-47.0); Hemoglobin 7.8 g/dl (12.0-16.0); Immature Granulocytes # (auto) 0.04 K/uL (0.01-0.20); Immature Granulocytes % (auto) 1.0 %; Mean Corpuscular Hemoglobin 31.5 pg (25.0-34.0); Mean Corpuscular Volume 100.8 fL (80.0-100.0); Platelet Count 129 K/uL (130-400); RDW Standard Deviation 63.7 fL (36.4-46.3); Red Blood Count 2.48 M/uL (4.20-5.40); White Blood Count 3.94 K/ul (4.8-10.8)
[2024-11-15 04:23] LABS: INR 1.1 (0.9-1.1); Prothrombin Time 12.1 Seconds (9.0-12.0)
[2024-11-15 04:38] LABS: Alanine Aminotransferase 5.0 U/L (7-52); Albumin Globulin Ratio 0.9 (0.9-2); Albumin Level 2.4 gm/dl (3.4-5.0); Alkaline Phosphatase 89.0 U/L (34-104); Anion Gap 8.0 (3-11); Bilirubin,Total 0.3 mg/dl (0.2-1.0); Blood Urea Nitrogen 8.0 mg/dl (6-23); Calcium 7.6 mg/dl (8.6-10.3); Carbon Dioxide 23.0 mmol/L (21-32); Chloride 109.0 mmol/L (98-107); Creatinine Clr Calc Pharmacy 106.5 ml/min; Globulin 2.6 gm/dl (2.5-4.0); Glucose 68.0 mg/dl (70-99(Fasting)); Potassium 2.5 mmol/L (3.5-5.1); Sodium 140.0 mmol/L (136-145); Total Protein 5.0 gm/dl (6.0-8.3)
[2024-11-15 04:44] LABS: Fibrinogen 279 mg/dl (184-400)
[2024-11-15] MEDS: POTASSIUM CHLORIDE PWD 20 MEQ PACK PO STA (05:01)
[2024-11-15] MEDS: POTASSIUM CHLORIDE / WTR 10 MEQ/100 ML PLCT IV SCH (05:02)
[2024-11-15 05:05] LABS: Ovalocytes 1+; Polychromasia 2+
[2024-11-15] MEDS ORDERED: VANCOMYCIN LEVEL ONE (07:00)
[2024-11-15 09:06] LABS: Magnesium 1.6 mg/dl (1.7-2.4)
[2024-11-15] MEDS: CALCIUM 600MG + VIT D 400 IU TAB PO SCH (09:08)
[2024-11-15] MEDS: CALCIUM GLUCONATE 1,000 MG/60 ML BAG IV STA (11:06)
--- NOTE | 2024-11-15 13:23 | Hospitalist Progress Note ---
Date of Service November 15, 2024 Assessment & Plan (1) Fever: (2) Altered mental status: (3) Bacteremia: (4) Compression fracture of lumbar vertebra: (5) AML (acute myeloblastic leukemia): (6) Dyslipidemia: (7) HTN (hypertension): (8) Anxiety: (9) Diabetes mellitus type II, controlled: Plan 79 year old female with PMH significant for HTN, HLD, DMII, history of pericardial effusion, PSVT s/p ablation in 2004, GERD with esophagitis, primary osteoarthritis of both knees, persistent insomnia, spinal stenosis of lumbar region, sacroiliitis, AML currently undergoing chemotherapy with decitabine/venetoclax on infectious prophylaxis with acyclovir/voriconazole/Levaquin, and lumbar compression fractures who was recently admitted for bilateral iliopsoas muscle fluid collections and staph epidermidis bacteremia and discharged to [facility] for rehab who presents to the [facility] on 11/13/2024 with fevers and confusion. 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 Plan: -Continue with vancomycin from previous admission recommended by ID for staph ep idermidis bacteremia -Follow blood cultures -ID consulted, appreciate recs -medically ready for discharge back to SN[facility] Metabolic Encephalopathy, resolving Mild Cognitive Impairment -Patient presenting with confusion described as forgetful/foggy by her daughter -do suspect some level of mild cognitive impairement secondary to age -Head CT negative Plan: -delirium precautions -change ativan to 0.25mg daily prn for severe anxiety per patient/family request (feels it helps her anxiety prn) -avoid anticholinergics, ativan as much as possible Hypokalemia Hypomagnemia -replenish prn L1 and L3 compression fractures -Continue PT/OT therapy while inpatient -Continue pain regimen from previous admission recommended by palliative care AML undergoing chemotherapy Chronic blood loss anemia History of pancytopenia -Last received chemo in August due to hospitalization/rehab stays -Blood counts stable -Continue suppressive antibiotics including levaquin, voriconazole, acyclovir Hypertension -Continue amlodipine Hyperlipidemia -Continue statin Anxiety/depression -Continue citalopram and mirtazapine doses from previous admission recommended by psych Type 2 diabetes -BSG ACHS and SSI I spent a total of 45 minutes in direct patient care, including [id number] time with the patient and/or family, reviewing medical records, ordering and reviewing diagnostic tests, and coordinating care with other healthcare providers. This time includes: history taking, physical examination, medical decision making, counseling, ECG interpretation, imaging interpretation, lab interpretation, orders, and education, excluding time spent in the performance of separately billed services. Admission and Anticipated Discharge Date Admission Date: November 13, 2024 Subjective Patient seen and examined at bedside. Patient states she feels much better today. Pain is improved. Symptoms resolved. Review of Systems Review of Systems: CONSTITUTIONAL: fatigue, weakness, chills, all resolved EYES: Patient denies any visual symptoms. EARS, NOSE, AND THROAT: No difficulties with hearing. No symptoms of rhinitis or sore throat. CARDIOVASCULAR: Patient denies chest pains, palpitations, orthopnea and paroxysmal nocturnal dyspnea. RESPIRATORY: No dyspnea on exertion, no wheezing or cough. GI: No nausea, vomiting, diarrhea, constipation, abdominal pain, hematochezia or melena. : No urinary hesitancy or dribbling. No nocturia or urinary frequency. No abnormal urethral discharge. MUSCULOSKELETAL: No myalgias or arthralgias. NEUROLOGIC: No chronic headaches, no seizures. Patient denies numbness, tingling or weakness. PSYCHIATRIC: Patient denies problems with mood disturbance. No problems with anxiety. ENDOCRINE: No excessive urination or excessive thirst. DERMATOLOGIC: Patient denies any rashes or skin changes. Physical Exam Physical Exam: Gen: A&O 3 NAD, cachexia and sarcopenia noted HEENT: NCAT, EOMI, not icteric. External ears normal. No rhinorrhea. Moist mucous membranes. Neck: Supple, full range of motion, no observable masses, No meningeal sign. Lungs: No Respiratory distress. CV: RRR, no edema. Abdomen: Soft, nondistended, No rebound tenderness. MSK: No joint swelling, no redness. Skin: No rashes, petechiae, lesions. Normal color per patient. Neuro: Normal Gait, Grossly intact. Psych: Appropriate for situation. Results & Data Results & Data Vital Signs (Past 12 Hours) Vital Signs Temp Pulse Resp BP Pulse Ox O2 Del Method 11/15/24 08:51 106/63 11/15/24 07:43 36.7 C 82 16 124/73 96 Room Air Laboratory Results -personally reviewed, uric acid/LDH WNL not consistent with relapsed AML, K of 2.5 repleted Medications Administered Acetaminophen (Acetaminophen 325 Mg Tab) 650 mg PO Q4H PRN PRN Reason: pain/fever Stop: 12/13/24 14:29 Last Admin: 11/13/24 17:41 Dose: 650 mg Documented By: LUCY Acetaminophen (Acetaminophen 500 Mg Tab) 1,000 mg PO Q8 [facility] Stop: 12/13/24 17:59 Last Admin: 11/15/24 05:11 Dose: 1,000 mg Documented By: Admin: 11/14/24 21:03 Dose: 1,000 mg Documented By: Admin: 11/14/24 13:48 Dose: 1,000 mg Documented By: Admin: 11/14/24 06:21 Dose: 1,000 mg Documented By: Admin: 11/13/24 18:59 Dose: Not Given Documented By: CLEMENTINA Acyclovir (Acyclovir 400 Mg Tab) 400 mg PO BID [facility] Stop: 12/13/24 20:59 Last Admin: 11/15/24 08:54 Dose: 400 mg Documented By: Admin: 11/14/24 21:03 Dose: 400 mg Documented By: Admin: 11/14/24 10:17 Dose: 400 mg Documented By: Admin: 11/13/24 21:56 Dose: 400 mg Documented By: CLEMENTINA Amlodipine Besylate (Amlodipine Besylate 5 Mg Tab) 5 mg PO QAM [place] Stop: 12/14/24 08:59 Last Admin: 11/15/24 08:53 Dose: Not Given Documented By: Admin: 11/14/24 10:18 Dose: 5 mg Documented By: JOSEPHINE Atorvastatin Calcium (Atorvastatin 20 Mg Tab) 20 mg PO HS [facility] Stop: 12/13/24 20:59 Last Admin: 11/14/24 21:04 Dose: 20 mg Documented By: Admin: 11/13/24 21:56 Dose: 20 mg Documented By: CLEMENTINA Calcium/Vitamin D (Calcium 600mg + Vit D 400 Iu Tab) 1 tab PO DAILY [facility] Stop: 12/15/24 08:59 Last Admin: 11/15/24 09:08 Dose: 1 tab Documented By: BRYSON Citalopram Hydrobromide (Citalopram 20 Mg Tab) 20 mg PO QAM [place] Stop: 12/14/24 08:59 Last Admin: 11/15/24 08:54 Dose: 20 mg Documented By: [facility] Admin: 11/14/24 10:34 Dose: Not Given Documented By: [facility] Cyanocobalamin (Cyanocobalamin (B-12) 500 Mcg Tablet) 1,000 mcg PO QAM [place] Stop: 12/14/24 08:59 Last Admin: 11/15/24 08:54 Dose: 1,000 mcg Documented By: [facility] Admin: 11/14/24 10:16 Dose: Not Given Documented By: [facility] Enoxaparin Sodium (Enoxaparin Inj 40 Mg/0.4 Ml Syr) 40 mg SQ QAM [facility] Stop: 12/14/24 08:59 Last Admin: 11/15/24 08:55 Dose: 40 mg Documented By: [facility] Admin: 11/14/24 12:35 Dose: 40 mg Documented By: BRYSON Heparin Sodium (Beef Lung) (Heparin 10 Unit/Ml 5 Ml Flush) 5 ml FLUSH PRN PRN PRN Reason: Flush Stop: 12/13/24 18:03 Last Admin: 11/13/24 20:42 Dose: 5 ml Documented By: WILLY Vancomycin HCl 750 mg/ Sodium (Chloride) 265 mls @ 200 mls/hr IV Q8H [place] Stop: 11/27/24 15:59 Last Infusion: 11/15/24 10:51 Dose: Infused Documented By: [facility] Admin: 11/15/24 09:27 Dose: 200 mls/hr Documented By: Infusion: 11/15/24 03:27 Dose: Infused Documented By: [facility] Admin: 11/15/24 01:14 Dose: 200 mls/hr Documented By: [facility] Infusion: 11/14/24 17:20 Dose: Infused Documented By: [facility] Admin: 11/14/24 16:00 Dose: 200 mls/hr Documented By: Infusion: 11/14/24 10:15 Dose: Infused Documented By: [facility] Admin: 11/14/24 08:30 Dose: 200 mls/hr Documented By: Infusion: 11/14/24 00:43 Dose: Infused Documented By: Admin: 11/13/24 23:22 Dose: 200 mls/hr Documented By: Infusion: 11/13/24 18:26 Dose: Infused Documented By: Admin: 11/13/24 16:49 Dose: 200 mls/hr Documented By: LUCY Insulin Aspart (Insulin Aspart Per Unit Charge) 0 units SC ACHS [place] Stop: 12/13/24 16:29 Last Admin: 11/15/24 12:32 Dose: Not Given Documented By: JOSEPHINE Co-signed By: BERTRAND Admin: 11/15/24 10:00 Dose: Not Given Documented By: JOSEPHINE Co-signed By: BERTRAND Admin: 11/14/24 20:53 Dose: Not Given Documented By: ERIC Co-signed By: MARQUIS Admin: 11/14/24 17:45 Dose: Not Given Documented By: JOSEPHINE Co-signed By: ZAC Admin: 11/14/24 12:39 Dose: Not Given Documented By: JOSEPHINE Co-signed By: JOSEPHINE(2) Admin: 11/14/24 09:37 Dose: Not Given Documented By: JOSEPHINE Co-signed By: JENNIFER Admin: 11/13/24 20:46 Dose: Not Given Documented By: Admin: 11/13/24 17:39 Dose: Not Given Documented By: LUCY Lactobacillus Acidophilus (Advanced Probiotic 625 Mg Capsule) 1,250 mg PO DAILY [place] Stop: 12/14/24 08:59 Last Admin: 11/15/24 08:54 Dose: 1,250 mg Documented By: Admin: 11/14/24 10:34 Dose: Not Given Documented By: JOSEPHINE Lidocaine (Lidocaine 5% 1 Patch) 1 patch TD QAM [place] Stop: 12/14/24 08:59 Last Admin: 11/15/24 09:14 Dose: 1 patch Documented By: Admin: 11/14/24 10:28 Dose: Not Given Documented By: JOSEPHINE Lorazepam (Lorazepam 0.5 Mg Tab) 0.25 mg PO Q8 PRN PRN Reason: Anxiety Stop: 12/14/24 17:42 Last Admin: 11/14/24 17:53 Dose: 0.25 mg Documented By: JOSEPHINE Melatonin (Melatonin 3 Mg Tab) 4.5 mg PO HS PRN PRN Reason: Insomnia Stop: 12/13/24 17:00 Last Admin: 11/14/24 21:02 Dose: 4.5 mg Documented By: ERIC Mirtazapine (Mirtazapine Tab 15 Mg Tab) 7.5 mg PO HS [place] Stop: 12/13/24 20:59 Last Admin: 11/14/24 21:04 Dose: 7.5 mg Documented By: Admin: 11/13/24 21:57 Dose: 7.5 mg Documented By: CLEMENTINA Miscellaneous (Remove Lidoderm Patch) 1 each N/A DAILY@2100 [place] Stop: 12/13/24 20:59 Last Admin: 11/14/24 21:05 Dose: 1 each Documented By: Admin: 11/13/24 21:56 Dose: 1 each Documented By: CLEMENTINA Ondansetron HCl (Ondansetron Inj 2 Mg/Ml 2 Ml Vial) 4 mg IV Q6H PRN PRN Reason: Nausea Stop: 12/13/24 14:29 Last Admin: 11/14/24 11:30 Dose: 4 mg Documented By: Admin: 11/14/24 05:21 Dose: 4 mg Documented By: Admin: 11/13/24 21:55 Dose: 4 mg Documented By: CLEMENTINA Oxycodone HCl (Oxycodone Hcl 15 Mg Tabcr (Oxycontin)) 15 mg PO Q12 [place] Stop: 11/27/24 20:59 Last Admin: 11/15/24 09:08 Dose: 15 mg Documented By: Admin: 11/14/24 21:03 Dose: 15 mg Documented By: Admin: 11/14/24 10:23 Dose: 15 mg Documented By: Admin: 11/13/24 21:58 Dose: Not Given Documented By: CLEMENTINA Polyethylene Glycol (Polyethylene (Miralax) 17 Gm Pack) 17 gm PO DAILY [place] Stop: 12/14/24 08:59 Last Admin: 11/15/24 08:56 Dose: Not Given Documented By: Admin: 11/14/24 08:34 Dose: Not Given Documented By: JOSEPHINE Potassium Chloride (Potassium Chloride Crtab 20 Meq Tabcr) 20 meq PO DAILY [place] Stop: 12/14/24 08:59 Last Admin: 11/15/24 09:08 Dose: 20 meq Documented By: [facility] Admin: 11/14/24 10:23 Dose: Not Given Documented By: JOSEPHINE Senna/Docusate Sodium (Docusate Sodium/Senna 50/8.6mg Tab) 1 tab PO BID [place] Stop: 12/13/24 20:59 Last Admin: 11/15/24 09:11 Dose: Not Given Documented By: Admin: 11/14/24 21:09 Dose: Not Given Documented By: Admin: 11/14/24 08:34 Dose: Not Given Documented By: [facility] Admin: 11/13/24 21:54 Dose: 1 tab Documented By: CLEMENTINA Voriconazole (Voriconazole 200 Mg Tablet) 200 mg PO Q12 [place] Stop: 12/13/24 20:59 Last Admin: 11/15/24 08:54 Dose: 200 mg Documented By: Admin: 11/14/24 21:05 Dose: 200 mg Documented By: Admin: 11/14/24 10:16 Dose: 200 mg Documented By: Admin: 11/13/24 21:54 Dose: 200 mg Documented By: CLEMENTINA (5) AML (acute myeloblastic leukemia) Leukemia Active/Remission status: without remission Qualified Code(s): C92.00 - Acute myeloblastic leukemia, not having achieved remission
[2024-11-15 13:39] LABS: Anion Gap 7.0 (3-11); Blood Urea Nitrogen 8.0 mg/dl (6-23); Calcium 8.3 mg/dl (8.6-10.3); Carbon Dioxide 22.0 mmol/L (21-32); Chloride 107.0 mmol/L (98-107); Creatinine Clr Calc Pharmacy 86.7 ml/min; Glucose 144.0 mg/dl (70-99(Fasting)); Magnesium 1.5 mg/dl (1.7-2.4); Potassium 4.1 mmol/L (3.5-5.1); Sodium 136.0 mmol/L (136-145)
[2024-11-15] MEDS: POTASSIUM CHLORIDE 20 MEQ/15 ML UDC PO ONE (13:39)
[2024-11-15] MEDS: MAGNESIUM SULFATE / D5W 1 GM/100 ML BAG IV SCH (13:48)
[2024-11-16 07:06] LABS: Hematocrit (blood only) 28.5 % (37.0-47.0); Hemoglobin 8.7 g/dl (12.0-16.0); Immature Granulocytes # (auto) 0.04 K/uL (0.01-0.20); Immature Granulocytes % (auto) 1.1 %; Mean Corpuscular Hemoglobin 31.5 pg (25.0-34.0); Mean Corpuscular Volume 103.3 fL (80.0-100.0); Platelet Count 151 K/uL (130-400); RDW Standard Deviation 66.4 fL (36.4-46.3); Red Blood Count 2.76 M/uL (4.20-5.40); White Blood Count 3.75 K/ul (4.8-10.8)
[2024-11-16 07:25] LABS: Alanine Aminotransferase 6.0 U/L (7-52); Albumin Globulin Ratio 1.0 (0.9-2); Albumin Level 2.7 gm/dl (3.4-5.0); Alkaline Phosphatase 99.0 U/L (34-104); Anion Gap 5.0 (3-11); Bilirubin,Total 0.3 mg/dl (0.2-1.0); Blood Urea Nitrogen 6.0 mg/dl (6-23); Calcium 7.8 mg/dl (8.6-10.3); Carbon Dioxide 27.0 mmol/L (21-32); Chloride 108.0 mmol/L (98-107); Creatinine Clr Calc Pharmacy 109.6 ml/min; Globulin 2.8 gm/dl (2.5-4.0); Glucose 83.0 mg/dl (70-99(Fasting)); Potassium 3.9 mmol/L (3.5-5.1); Sodium 140.0 mmol/L (136-145); Total Protein 5.5 gm/dl (6.0-8.3)
[2024-11-16] MEDS ORDERED: SODIUM PHOSPHATE 3 MMOL/1 ML INFUSION IV STA (08:27)
[2024-11-16] MEDS: CALCIUM GLUCONATE 1,000 MG/60 ML BAG IV STA (09:47)
[2024-11-16] MEDS: SODIUM PHOSPHATE 12 MMOL in SODIUM CHLORIDE 0.9% 250 ML IV ONE (11:07)
[2024-11-16] MEDS ORDERED: Nursing to Pharmacy Communication SCH (14:30)
--- NOTE | 2024-11-16 14:53 | Hospitalist Progress Note ---
Date of Service November 16, 2024 Assessment & Plan (1) Fever: (2) Altered mental status: (3) Bacteremia: (4) Compression fracture of lumbar vertebra: (5) AML (acute myeloblastic leukemia): (6) Dyslipidemia: (7) HTN (hypertension): (8) Anxiety: (9) Diabetes mellitus type II, controlled: Plan 79 year old female with PMH significant for HTN, HLD, DMII, history of pericardial effusion, PSVT s/p ablation in 2004, GERD with esophagitis, primary osteoarthritis of both knees, persistent insomnia, spinal stenosis of lumbar region, sacroiliitis, AML currently undergoing chemotherapy with decitabine/venetoclax on infectious prophylaxis with acyclovir/voriconazole/Levaquin, and lumbar compression fractures who was recently admitted for bilateral iliopsoas muscle fluid collections and staph epidermidis bacteremia and discharged to [facility] for rehab who presents to the E [facility] on 11/13/2024 with fevers and confusion. Fever History of bilateral iliopsoas muscle fluid collection s/p IR drainage History of staph epidermidis bacteremia -at [facility] fever up to 103 reported, chills, dehydration -Labs revealed no leukocytosis, lactate 2.0, elevated procal 18.9 -CXR negative, unremarkable CT abdomen pelvis ordered by this provider, lumbar spine unremarkable -much improved today, suspect dehydration and polypharmacy as potential peg driver of metabolic encephalopathy Plan: -Continue with vancomycin from previous admission recommended by ID for staph ep idermidis bacteremia -Follow blood cultures -ID consulted, appreciate recs -medically ready for discharge back to SNF -possible discharge on Sunday Metabolic Encephalopathy, resolving Mild Cognitive Impairment -Patient presenting with confusion described as forgetful/foggy by her daughter -do suspect some level of mild cognitive impairment secondary to age -Head CT negative Plan: -delirium precautions -continue ativan to 0.25mg daily prn for severe anxiety per patient/family request (feels it helps her anxiety prn) -avoid anticholinergics, ativan as much as possible Hypokalemia Hypomagnemia -replenish prn L1 and L3 compression fractures -Continue PT/OT therapy while inpatient -Continue pain regimen from previous admission recommended by palliative care AML undergoing chemotherapy Chronic blood loss anemia History of pancytopenia -Last received chemo in August due to hospitalization/rehab stays -Blood counts stable -Continue suppressive antibiotics including levaquin, voriconazole, acyclovir Hypertension -Continue amlodipine Hyperlipidemia -Continue statin Anxiety/depression -Continue citalopram and mirtazapine doses from previous admission recommended by psych Type 2 diabetes -BSG ACHS and SSI I spent a total of 40 minutes in direct patient care, including [id number] time with the patient and/or family, reviewing medical records, ordering and reviewing diagnostic tests, and coordinating care with other healthcare providers. This time includes: history taking, physical examination, medical decision making, counseling, ECG interpretation, imaging interpretation, lab interpretation, orders, and education, excluding time spent in the performance of separately billed services. Admission and Anticipated Discharge Date Admission Date: November 13, 2024 Subjective Patient seen and examined at bedside. Patient doing well today, no concerns a this time other than occasional nausea. Review of Systems Review of Systems: CONSTITUTIONAL: fatigue, weakness, chills, all resolved EYES: Patient denies any visual symptoms. EARS, NOSE, AND THROAT: No difficulties with hearing. No symptoms of rhinitis or sore throat. CARDIOVASCULAR: Patient denies chest pains, palpitations, orthopnea and paroxysmal nocturnal dyspnea. RESPIRATORY: No dyspnea on exertion, no wheezing or cough. GI: occasional nausea : No urinary hesitancy or dribbling. No nocturia or urinary frequency. No abnormal urethral discharge. MUSCULOSKELETAL: No myalgias or arthralgias. NEUROLOGIC: No chronic headaches, no seizures. Patient denies numbness, tingling or weakness. PSYCHIATRIC: Patient denies problems with mood disturbance. No problems with anxiety. ENDOCRINE: No excessive urination or excessive thirst. DERMATOLOGIC: Patient denies any rashes or skin changes. Physical Exam Physical Exam: Gen: A&O 3 NAD, cachexia and sarcopenia noted HEENT: NCAT, EOMI, not icteric. External ears normal. No rhinorrhea. Moist mucous membranes. Neck: Supple, full range of motion, no observable masses, No meningeal sign. Lungs: No Respiratory distress. CV: RRR, no edema. Abdomen: Soft, nondistended, No rebound tenderness. MSK: No joint swelling, no redness. Skin: No rashes, petechiae, lesions. Normal color per patient. Neuro: Normal Gait, Grossly intact. Psych: Appropriate for situation. Results & Data Results & Data Vital Signs (Past 12 Hours) Vital Signs Temp Pulse Resp BP Pulse Ox O2 Del Method 11/16/24 07:59 Room Air 11/16/24 07:03 36.5 C 77 16 121/70 91 Room Air Laboratory Results -personally reviewed, pancytopenia noted, creatinine at baseline Medications Administered Acetaminophen (Acetaminophen 325 Mg Tab) 650 mg PO Q4H PRN PRN Reason: pain/fever Stop: 12/13/24 14:29 Last Admin: 11/13/24 17:41 Dose: 650 mg Documented By: LUCY Acetaminophen (Acetaminophen 500 Mg Tab) 1,000 mg PO Q8 [place] Stop: 12/13/24 17:59 Last Admin: 11/16/24 05:40 Dose: 1,000 mg Documented By: Admin: 11/15/24 21:05 Dose: 1,000 mg Documented By: Admin: 11/15/24 13:50 Dose: 1,000 mg Documented By: Admin: 11/15/24 05:11 Dose: 1,000 mg Documented By: Admin: 11/14/24 21:03 Dose: 1,000 mg Documented By: Admin: 11/14/24 13:48 Dose: 1,000 mg Documented By: Admin: 11/14/24 06:21 Dose: 1,000 mg Documented By: Admin: 11/13/24 18:59 Dose: Not Given Documented By: CLEMENTINA Acyclovir (Acyclovir 400 Mg Tab) 400 mg PO BID [facility] Stop: 12/13/24 20:59 Last Admin: 11/16/24 09:29 Dose: 400 mg Documented By: Admin: 11/15/24 21:06 Dose: 400 mg Documented By: Admin: 11/15/24 08:54 Dose: 400 mg Documented By: Admin: 11/14/24 21:03 Dose: 400 mg Documented By: Admin: 11/14/24 10:17 Dose: 400 mg Documented By: Admin: 11/13/24 21:56 Dose: 400 mg Documented By: CLEMENTINA Amlodipine Besylate (Amlodipine Besylate 5 Mg Tab) 5 mg PO QAM [place] Stop: 12/14/24 08:59 Last Admin: 11/16/24 09:31 Dose: 5 mg Documented By: Admin: 11/15/24 08:53 Dose: Not Given Documented By: Admin: 11/14/24 10:18 Dose: 5 mg Documented By: JOSEPHINE Atorvastatin Calcium (Atorvastatin 20 Mg Tab) 20 mg PO HS [place] Stop: 12/13/24 20:59 Last Admin: 11/15/24 21:07 Dose: 20 mg Documented By: Admin: 11/14/24 21:04 Dose: 20 mg Documented By: Admin: 11/13/24 21:56 Dose: 20 mg Documented By: CLEMENTINA Calcium/Vitamin D (Calcium 600mg + Vit D 400 Iu Tab) 1 tab PO DAILY [place] Stop: 12/15/24 08:59 Last Admin: 11/16/24 09:30 Dose: 1 tab Documented By: Admin: 11/15/24 09:08 Dose: 1 tab Documented By: JOSEPHINE Citalopram Hydrobromide (Citalopram 20 Mg Tab) 20 mg PO QAM [facility] Stop: 12/14/24 08:59 Last Admin: 11/16/24 09:31 Dose: 20 mg Documented By: Admin: 11/15/24 08:54 Dose: 20 mg Documented By: Admin: 11/14/24 10:34 Dose: Not Given Documented By: JOSEPHINE Cyanocobalamin (Cyanocobalamin (B-12) 500 Mcg Tablet) 1,000 mcg PO QAM [facility] Stop: 12/14/24 08:59 Last Admin: 11/16/24 09:31 Dose: 1,000 mcg Documented By: Admin: 11/15/24 08:54 Dose: 1,000 mcg Documented By: Admin: 11/14/24 10:16 Dose: Not Given Documented By: JOSEPHINE Enoxaparin Sodium (Enoxaparin Inj 40 Mg/0.4 Ml Syr) 40 mg SQ QAM [place] Stop: 12/14/24 08:59 Last Admin: 11/16/24 09:33 Dose: 40 mg Documented By: Admin: 11/15/24 08:55 Dose: 40 mg Documented By: Admin: 11/14/24 12:35 Dose: 40 mg Documented By: JOSEPHINE Heparin Sodium (Beef Lung) (Heparin 10 Unit/Ml 5 Ml Flush) 5 ml FLUSH PRN PRN PRN Reason: Flush Stop: 12/13/24 18:03 Last Admin: 11/13/24 20:42 Dose: 5 ml Documented By: WILLY Vancomycin HCl 750 mg/ Sodium (Chloride) 265 mls @ 200 mls/hr IV Q8H [place] Stop: 11/27/24 15:59 Last Infusion: 11/16/24 11:10 Dose: Infused Documented By: Admin: 11/16/24 09:03 Dose: 200 mls/hr Documented By: Infusion: 11/16/24 01:20 Dose: Infused Documented By: HKTyler Admin: 11/15/24 23:40 Dose: 200 mls/hr Documented By: HKTyler Infusion: 11/15/24 17:43 Dose: Infused Documented By: Admin: 11/15/24 16:08 Dose: 200 mls/hr Documented By: Infusion: 11/15/24 10:51 Dose: Infused Documented By: Admin: 11/15/24 09:27 Dose: 200 mls/hr Documented By: Infusion: 11/15/24 03:27 Dose: Infused Documented By: HKTyler Admin: 11/15/24 01:14 Dose: 200 mls/hr Documented By: HKTyler Infusion: 11/14/24 17:20 Dose: Infused Documented By: Admin: 11/14/24 16:00 Dose: 200 mls/hr Documented By: Infusion: 11/14/24 10:15 Dose: Infused Documented By: Admin: 11/14/24 08:30 Dose: 200 mls/hr Documented By: Infusion: 11/14/24 00:43 Dose: Infused Documented By: Admin: 11/13/24 23:22 Dose: 200 mls/hr Documented By: Infusion: 11/13/24 18:26 Dose: Infused Documented By: Admin: 11/13/24 16:49 Dose: 200 mls/hr Documented By: MPS Insulin Aspart (Insulin Aspart Per Unit Charge) 0 units SC ACHS [place] Stop: 12/13/24 16:29 Last Admin: 11/16/24 13:01 Dose: Not Given Documented By: Admin: 11/16/24 09:07 Dose: Not Given Documented By: Admin: 11/15/24 20:28 Dose: Not Given Documented By: ERIC Co-signed By: MONA Admin: 11/15/24 17:41 Dose: Not Given Documented By: JOSEPHINE Co-signed By: BERTRAND Admin: 11/15/24 12:32 Dose: Not Given Documented By: JOSEPHINE Co-signed By: BERTRAND Admin: 11/15/24 10:00 Dose: Not Given Documented By: JOSEPHINE Co-signed By: BERTRAND Admin: 11/14/24 20:53 Dose: Not Given Documented By: ERIC Co-signed By: MARQUIS Admin: 11/14/24 17:45 Dose: Not Given Documented By: JOSEPHINE Co-signed By: ZAC Admin: 11/14/24 12:39 Dose: Not Given Documented By: JOSEPHINE Co-signed By: JOSEPHINE(2) Admin: 11/14/24 09:37 Dose: Not Given Documented By: JOSEPHINE Co-signed By: JENNIFER Admin: 11/13/24 20:46 Dose: Not Given Documented By: Admin: 11/13/24 17:39 Dose: Not Given Documented By: LUCY Lactobacillus Acidophilus (Advanced Probiotic 625 Mg Capsule) 1,250 mg PO DAILY [place] Stop: 12/14/24 08:59 Last Admin: 11/16/24 09:32 Dose: 1,250 mg Documented By: Admin: 11/15/24 08:54 Dose: 1,250 mg Documented By: Admin: 11/14/24 10:34 Dose: Not Given Documented By: JOSEPHINE Lidocaine (Lidocaine 5% 1 Patch) 1 patch TD QAM [place] Stop: 12/14/24 08:59 Last Admin: 11/16/24 09:34 Dose: 1 patch Documented By: Admin: 11/15/24 09:14 Dose: 1 patch Documented By: Admin: 11/14/24 10:28 Dose: Not Given Documented By: JOSEPHINE Melatonin (Melatonin 3 Mg Tab) 4.5 mg PO HS PRN PRN Reason: Insomnia Stop: 12/13/24 17:00 Last Admin: 11/15/24 21:05 Dose: 4.5 mg Documented By: Admin: 11/14/24 21:02 Dose: 4.5 mg Documented By: ERIC Mirtazapine (Mirtazapine Tab 15 Mg Tab) 7.5 mg PO HS [place] Stop: 12/13/24 20:59 Last Admin: 11/15/24 21:07 Dose: 7.5 mg Documented By: Admin: 11/14/24 21:04 Dose: 7.5 mg Documented By: Admin: 11/13/24 21:57 Dose: 7.5 mg Documented By: CLEMENTINA Miscellaneous (Remove Lidoderm Patch) 1 each N/A DAILY@2100 [place] Stop: 12/13/24 20:59 Last Admin: 11/15/24 21:06 Dose: 1 each Documented By: Admin: 11/14/24 21:05 Dose: 1 each Documented By: Admin: 11/13/24 21:56 Dose: 1 each Documented By: CLEMENTINA Ondansetron HCl (Ondansetron Inj 2 Mg/Ml 2 Ml Vial) 4 mg IV Q6H PRN PRN Reason: Nausea Stop: 12/13/24 14:29 Last Admin: 11/14/24 11:30 Dose: 4 mg Documented By: Admin: 11/14/24 05:21 Dose: 4 mg Documented By: Admin: 11/13/24 21:55 Dose: 4 mg Documented By: CLEMENTINA Oxycodone HCl (Oxycodone Hcl 15 Mg Tabcr (Oxycontin)) 15 mg PO Q12 [place] Stop: 11/27/24 20:59 Last Admin: 11/16/24 09:31 Dose: 15 mg Documented By: Admin: 11/15/24 21:05 Dose: 15 mg Documented By: Admin: 11/15/24 09:08 Dose: 15 mg Documented By: Admin: 11/14/24 21:03 Dose: 15 mg Documented By: Admin: 11/14/24 10:23 Dose: 15 mg Documented By: Admin: 11/13/24 21:58 Dose: Not Given Documented By: CLEMENTINA Polyethylene Glycol (Polyethylene (Miralax) 17 Gm Pack) 17 gm PO DAILY [place] Stop: 12/14/24 08:59 Last Admin: 11/16/24 09:33 Dose: Not Given Documented By: Admin: 11/15/24 08:56 Dose: Not Given Documented By: Admin: 11/14/24 08:34 Dose: Not Given Documented By: JOSEPHINE Potassium Chloride (Potassium Chloride Crtab 20 Meq Tabcr) 20 meq PO DAILY [place] Stop: 12/14/24 08:59 Last Admin: 11/16/24 09:32 Dose: 20 meq Documented By: Admin: 11/15/24 09:08 Dose: 20 meq Documented By: Admin: 11/14/24 10:23 Dose: Not Given Documented By: JOSEPHINE Senna/Docusate Sodium (Docusate Sodium/Senna 50/8.6mg Tab) 1 tab PO BID [place] Stop: 12/13/24 20:59 Last Admin: 11/16/24 09:30 Dose: 1 tab Documented By: Admin: 11/15/24 20:32 Dose: Not Given Documented By: Admin: 11/15/24 09:11 Dose: Not Given Documented By: Admin: 11/14/24 21:09 Dose: Not Given Documented By: Admin: 11/14/24 08:34 Dose: Not Given Documented By: Admin: 11/13/24 21:54 Dose: 1 tab Documented By: CLEMENTINA Voriconazole (Voriconazole 200 Mg Tablet) 200 mg PO Q12 [place] Stop: 12/13/24 20:59 Last Admin: 11/16/24 09:31 Dose: 200 mg Documented By: Admin: 11/15/24 21:06 Dose: 200 mg Documented By: Admin: 11/15/24 08:54 Dose: 200 mg Documented By: Admin: 11/14/24 21:05 Dose: 200 mg Documented By: Admin: 11/14/24 10:16 Dose: 200 mg Documented By: Admin: 11/13/24 21:54 Dose: 200 mg Documented By: CLEMENTINA (5) AML (acute myeloblastic leukemia) Leukemia Active/Remission status: without remission Qualified Code(s): C92.00 - Acute myeloblastic leukemia, not having achieved remission
[2024-11-16] MEDS: MAGNESIUM SULFATE / D5W 1 GM/100 ML BAG IV SCH (15:21)
[2024-11-16] MEDS: ONDANSETRON 4 MG OD TAB PO PRN (19:42)
[2024-11-17 07:39] LABS: Hematocrit (blood only) 27.8 % (37.0-47.0); Hemoglobin 8.6 g/dl (12.0-16.0); Immature Granulocytes # (auto) 0.03 K/uL (0.01-0.20); Immature Granulocytes % (auto) 0.7 %; Mean Corpuscular Hemoglobin 31.5 pg (25.0-34.0); Mean Corpuscular Volume 101.8 fL (80.0-100.0); Platelet Count 141 K/uL (130-400); RDW Standard Deviation 65.3 fL (36.4-46.3); Red Blood Count 2.73 M/uL (4.20-5.40); White Blood Count 4.07 K/ul (4.8-10.8)
[2024-11-17 08:05] LABS: Alanine Aminotransferase 6.0 U/L (7-52); Albumin Globulin Ratio 1.0 (0.9-2); Albumin Level 2.7 gm/dl (3.4-5.0); Alkaline Phosphatase 94.0 U/L (34-104); Anion Gap 5.0 (3-11); Bilirubin,Total 0.3 mg/dl (0.2-1.0); Blood Urea Nitrogen 6.0 mg/dl (6-23); Calcium 7.6 mg/dl (8.6-10.3); Carbon Dioxide 29.0 mmol/L (21-32); Chloride 106.0 mmol/L (98-107); Creatinine Clr Calc Pharmacy 112.9 ml/min; Globulin 2.7 gm/dl (2.5-4.0); Glucose 88.0 mg/dl (70-99(Fasting)); Potassium 3.2 mmol/L (3.5-5.1); Sodium 140.0 mmol/L (136-145); Total Protein 5.4 gm/dl (6.0-8.3)
--- NOTE | 2024-11-17 09:15 | Pharmacy Report ---
Pharmacy PK ABX Note - Date of Service November 17, 2024 - Assessment and Plan Assessment 11/17: * Vancomycin level drawn today was 16.5mcg/mL which extrapolates to an AUC of 466mg/L.hr which is in the goal range. She is to continue the current vancomycin regimen * Blood cultures x 2 from 11/13 remain no growth to date. 11/14: * Vancomycin level drawn today was 18.7 which extrapolates to an AUC in the goal range. She is to continue current vancomycin regimen. * ID reconsulted this visit and their recommendation is to continue her current antibiotic regimen with anticipated 6 week course total of vancomycin. 11/13: 79 year old F receiving Vancomycin for treatment of bacteremia. * Patient had staph epidermidis bacteremia secondary to bilateral iliopsoas muscle fluid collection s/p IR drainage. Grew staph epi in blood cultures on 10/13/24 at [facility] and first set of negative cultures were 10/15/24. Per [facility] ID, patient to be on IV vancomycin for 6-8 weeks (earliest end date would be 11/26/24). * Patient discharged to [facility] for rehab. She was receiving 750 mg of I V vancomycin at their facility (0730,1530,2330). Per RN at [facility], patient received approximately half a bag of vanc at 0730 prior to coming to ED today for fevers. * Febrile here without leukocytosis. Procal is significantly elevated at almost 19. Repeat blood cultures pending. * Random level returned at 10.2 mcg/mL today which is therapeutic. This is concerning for vancomycin failure so patient received Dapto in the ED. ID consult recommended as another agent may be warranted at this time. Plan Vancomycin * Random level this afternoon was 16.5 mcg/mL. This extrapolates to an AUC in the goal range. * Continue outpatient dose of 750 mg IV every 8 hours * Regimen is predicted to achieve target AUC/ARNOLD of 400-600 mg/L.hr * Another random level will be ordered in the next week or as clinically necessary. Pharmacy will continue to follow and will adjust dose/frequency as necessary. Thank you. Pharmacy has transitioned to AUC monitoring for vancomycin. AUC/ARNOLD is the preferred PK/PD target and is associated with decreased risk of nephrotoxicity compared to traditional trough targets.
[2024-11-17] MEDS: VANCOMYCIN LEVEL ONE (10:16)
--- NOTE | 2024-11-17 13:13 | Hospitalist Progress Note ---
Date of Service November 17, 2024 Assessment & Plan (1) Fever: (2) Altered mental status: (3) Bacteremia: (4) Compression fracture of lumbar vertebra: (5) AML (acute myeloblastic leukemia): (6) Dyslipidemia: (7) HTN (hypertension): (8) Anxiety: (9) Diabetes mellitus type II, controlled: Plan 79 year old female with PMH significant for HTN, HLD, DMII, history of pericardial effusion, PSVT s/p ablation in 2004, GERD with esophagitis, primary osteoarthritis of both knees, persistent insomnia, spinal stenosis of lumbar region, sacroiliitis, AML currently undergoing chemotherapy with decitabine/venetoclax on infectious prophylaxis with acyclovir/voriconazole/Levaquin, and lumbar compression fractures who was recently admitted for bilateral iliopsoas muscle fluid collections and staph epidermidis bacteremia and discharged to [facility] for rehab who presents to the [facility] on 11/13/2024 with fevers and confusion. 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 of metabolic encephalopathy Plan: -Continue with vancomycin from previous admission recommended by ID for staph ep idermidis bacteremia -Follow blood cultures -ID consulted, appreciate recs -medically ready for discharge back to SNF Metabolic Encephalopathy, resolving Mild Cognitive Impairment -Patient presenting with confusion described as forgetful/foggy by her daughter -do suspect some level of mild cognitive impairment secondary to age -Head CT negative Plan: -delirium precautions -continue ativan to 0.25mg daily prn for severe anxiety per patient/family request (feels it helps her anxiety prn) -avoid anticholinergics, ativan as much as possible Hypokalemia Hypomagnemia -replenish prn L1 and L3 compression fractures -Continue PT/OT therapy while inpatient -Continue pain regimen from previous admission recommended by palliative care AML undergoing chemotherapy Chronic blood loss anemia History of pancytopenia -Last received chemo in August due to hospitalization/rehab stays -Blood counts stable -Continue suppressive antibiotics including levaquin, voriconazole, acyclovir Hypertension -Continue amlodipine Hyperlipidemia -Continue statin Anxiety/depression -Continue citalopram and mirtazapine doses from previous admission recommended by psych Type 2 diabetes -BSG ACHS and SSI I spent a total of 40 minutes in direct patient care, including [id number] time with the patient and/or family, reviewing medical records, ordering and reviewing diagnostic tests, and coordinating care with other healthcare providers. This time includes: history taking, physical examination, medical decision making, counseling, ECG interpretation, imaging interpretation, lab interpretation, orders, and education, excluding time spent in the performance of separately billed services. Admission and Anticipated Discharge Date Admission Date: November 13, 2024 Subjective Patient seen and examined at bedside. Patient doing ok today. Still having some nausea, but eating and drinking well. Review of Systems Review of Systems: CONSTITUTIONAL: fatigue, weakness, chills, all resolved EYES: Patient denies any visual symptoms. EARS, NOSE, AND THROAT: No difficulties with hearing. No symptoms of rhinitis or sore throat. CARDIOVASCULAR: Patient denies chest pains, palpitations, orthopnea and paroxysmal nocturnal dyspnea. RESPIRATORY: No dyspnea on exertion, no wheezing or cough. GI: occasional nausea : No urinary hesitancy or dribbling. No nocturia or urinary frequency. No abnormal urethral discharge. MUSCULOSKELETAL: No myalgias or arthralgias. NEUROLOGIC: No chronic headaches, no seizures. Patient denies numbness, tingling or weakness. PSYCHIATRIC: Patient denies problems with mood disturbance. No problems with anxiety. ENDOCRINE: No excessive urination or excessive thirst. DERMATOLOGIC: Patient denies any rashes or skin changes. Physical Exam Physical Exam: Gen: A&O 3 NAD, cachexia and sarcopenia noted HEENT: NCAT, EOMI, not icteric. External ears normal. No rhinorrhea. Moist mucous membranes. Neck: Supple, full range of motion, no observable masses, No meningeal sign. Lungs: No Respiratory distress. CV: RRR, no edema. Abdomen: Soft, nondistended, No rebound tenderness. MSK: No joint swelling, no redness. Skin: No rashes, petechiae, lesions. Normal color per patient. Neuro: Normal Gait, Grossly intact. Psych: Appropriate for situation. Results & Data Results & Data Vital Signs (Past 12 Hours) Vital Signs Temp Pulse Resp BP Pulse Ox O2 Del Method 11/17/24 07:54 36.7 C 81 18 143/85 H 93 Room Air 11/17/24 07:28 Room Air Laboratory Results -personally reviewed, Hgb stable, K of 3.2 replenished, creatinine stable Medications Administered Acetaminophen (Acetaminophen 325 Mg Tab) 650 mg PO Q4H PRN PRN Reason: pain/fever Stop: 12/13/24 14:29 Last Admin: 11/13/24 17:41 Dose: 650 mg Documented By: LUCY Acetaminophen (Acetaminophen 500 Mg Tab) 1,000 mg PO Q8 [place] Stop: 12/13/24 17:59 Last Admin: 11/17/24 06:07 Dose: 1,000 mg Documented By: Admin: 11/16/24 22:04 Dose: 1,000 mg Documented By: Admin: 11/16/24 15:32 Dose: 1,000 mg Documented By: Admin: 11/16/24 05:40 Dose: 1,000 mg Documented By: Admin: 11/15/24 21:05 Dose: 1,000 mg Documented By: Admin: 11/15/24 13:50 Dose: 1,000 mg Documented By: Admin: 11/15/24 05:11 Dose: 1,000 mg Documented By: HKTyler Admin: 11/14/24 21:03 Dose: 1,000 mg Documented By: Admin: 11/14/24 13:48 Dose: 1,000 mg Documented By: Admin: 11/14/24 06:21 Dose: 1,000 mg Documented By: Admin: 11/13/24 18:59 Dose: Not Given Documented By: CLEMENTINA Acyclovir (Acyclovir 400 Mg Tab) 400 mg PO BID [place] Stop: 12/13/24 20:59 Last Admin: 11/17/24 08:54 Dose: 400 mg Documented By: Admin: 11/16/24 20:44 Dose: 400 mg Documented By: Admin: 11/16/24 09:29 Dose: 400 mg Documented By: Admin: 11/15/24 21:06 Dose: 400 mg Documented By: HKTyler Admin: 11/15/24 08:54 Dose: 400 mg Documented By: Admin: 11/14/24 21:03 Dose: 400 mg Documented By: Admin: 11/14/24 10:17 Dose: 400 mg Documented By: Admin: 11/13/24 21:56 Dose: 400 mg Documented By: CLEMENTINA Amlodipine Besylate (Amlodipine Besylate 5 Mg Tab) 5 mg PO QAM [place] Stop: 12/14/24 08:59 Last Admin: 11/17/24 08:54 Dose: 5 mg Documented By: Admin: 11/16/24 09:31 Dose: 5 mg Documented By: Admin: 11/15/24 08:53 Dose: Not Given Documented By: Admin: 11/14/24 10:18 Dose: 5 mg Documented By: JOSEPHINE Atorvastatin Calcium (Atorvastatin 20 Mg Tab) 20 mg PO HS [place] Stop: 12/13/24 20:59 Last Admin: 11/16/24 20:44 Dose: 20 mg Documented By: Admin: 11/15/24 21:07 Dose: 20 mg Documented By: Admin: 11/14/24 21:04 Dose: 20 mg Documented By: Admin: 11/13/24 21:56 Dose: 20 mg Documented By: CLEMENTINA Calcium/Vitamin D (Calcium 600mg + Vit D 400 Iu Tab) 1 tab PO DAILY [place] Stop: 12/15/24 08:59 Last Admin: 11/17/24 08:54 Dose: 1 tab Documented By: Admin: 11/16/24 09:30 Dose: 1 tab Documented By: Admin: 11/15/24 09:08 Dose: 1 tab Documented By: JOSEPHINE Citalopram Hydrobromide (Citalopram 20 Mg Tab) 20 mg PO QAM [place] Stop: 12/14/24 08:59 Last Admin: 11/17/24 08:54 Dose: 20 mg Documented By: Admin: 11/16/24 09:31 Dose: 20 mg Documented By: Admin: 11/15/24 08:54 Dose: 20 mg Documented By: Admin: 11/14/24 10:34 Dose: Not Given Documented By: JOSEPHINE Cyanocobalamin (Cyanocobalamin (B-12) 500 Mcg Tablet) 1,000 mcg PO QAM [place] Stop: 12/14/24 08:59 Last Admin: 11/17/24 08:54 Dose: 1,000 mcg Documented By: Admin: 11/16/24 09:31 Dose: 1,000 mcg Documented By: Admin: 11/15/24 08:54 Dose: 1,000 mcg Documented By: Admin: 11/14/24 10:16 Dose: Not Given Documented By: BRYSON Enoxaparin Sodium (Enoxaparin Inj 40 Mg/0.4 Ml Syr) 40 mg SQ QAM [place] Stop: 12/14/24 08:59 Last Admin: 11/17/24 08:54 Dose: 40 mg Documented By: Admin: 11/16/24 09:33 Dose: 40 mg Documented By: Admin: 11/15/24 08:55 Dose: 40 mg Documented By: Admin: 11/14/24 12:35 Dose: 40 mg Documented By: BRYSON Heparin Sodium (Beef Lung) (Heparin 10 Unit/Ml 5 Ml Flush) 5 ml FLUSH PRN PRN PRN Reason: Flush Stop: 12/13/24 18:03 Last Admin: 11/13/24 20:42 Dose: 5 ml Documented By: WILLY Vancomycin HCl 750 mg/ Sodium (Chloride) 265 mls @ 200 mls/hr IV Q8H [place] Stop: 11/27/24 15:59 Last Infusion: 11/17/24 11:04 Dose: Infused Documented By: Admin: 11/17/24 09:36 Dose: 200 mls/hr Documented By: Infusion: 11/17/24 00:55 Dose: Infused Documented By: Admin: 11/16/24 23:20 Dose: 200 mls/hr Documented By: Infusion: 11/16/24 18:34 Dose: Infused Documented By: Admin: 11/16/24 16:41 Dose: 200 mls/hr Documented By: Infusion: 11/16/24 11:10 Dose: Infused Documented By: Admin: 11/16/24 09:03 Dose: 200 mls/hr Documented By: Infusion: 11/16/24 01:20 Dose: Infused Documented By: Admin: 11/15/24 23:40 Dose: 200 mls/hr Documented By: Infusion: 11/15/24 17:43 Dose: Infused Documented By: Admin: 11/15/24 16:08 Dose: 200 mls/hr Documented By: Infusion: 11/15/24 10:51 Dose: Infused Documented By: Admin: 11/15/24 09:27 Dose: 200 mls/hr Documented By: Infusion: 11/15/24 03:27 Dose: Infused Documented By: Admin: 11/15/24 01:14 Dose: 200 mls/hr Documented By: Infusion: 11/14/24 17:20 Dose: Infused Documented By: Admin: 11/14/24 16:00 Dose: 200 mls/hr Documented By: Infusion: 11/14/24 10:15 Dose: Infused Documented By: Admin: 11/14/24 08:30 Dose: 200 mls/hr Documented By: Infusion: 11/14/24 00:43 Dose: Infused Documented By: Admin: 11/13/24 23:22 Dose: 200 mls/hr Documented By: Infusion: 11/13/24 18:26 Dose: Infused Documented By: Admin: 11/13/24 16:49 Dose: 200 mls/hr Documented By: MPS Insulin Aspart (Insulin Aspart Per Unit Charge) 0 units SC ACHS [place] Stop: 12/13/24 16:29 Last Admin: 11/17/24 12:59 Dose: Not Given Documented By: Admin: 11/17/24 08:45 Dose: Not Given Documented By: Admin: 11/16/24 22:05 Dose: Not Given Documented By: Admin: 11/16/24 17:49 Dose: Not Given Documented By: Admin: 11/16/24 13:01 Dose: Not Given Documented By: Admin: 11/16/24 09:07 Dose: Not Given Documented By: Admin: 11/15/24 20:28 Dose: Not Given Documented By: ERIC Co-signed By: MONA Admin: 11/15/24 17:41 Dose: Not Given Documented By: JOSEPHINE Co-signed By: AA Admin: 11/15/24 12:32 Dose: Not Given Documented By: JOSEPHINE Co-signed By: AA Admin: 11/15/24 10:00 Dose: Not Given Documented By: JOSEPHINE Co-signed By: AAPrasanth Admin: 11/14/24 20:53 Dose: Not Given Documented By: ERIC Co-signed By: MARQUIS Admin: 11/14/24 17:45 Dose: Not Given Documented By: JOSEPHINE Co-signed By: ZAC Admin: 11/14/24 12:39 Dose: Not Given Documented By: JOSEPHINE Co-signed By: JOSEPHINE(2) Admin: 11/14/24 09:37 Dose: Not Given Documented By: JOSEPHINE Co-signed By: JENNIFER Admin: 11/13/24 20:46 Dose: Not Given Documented By: Admin: 11/13/24 17:39 Dose: Not Given Documented By: MPS Lactobacillus Acidophilus (Advanced Probiotic 625 Mg Capsule) 1,250 mg PO DAILY [place] Stop: 12/14/24 08:59 Last Admin: 11/17/24 08:54 Dose: 1,250 mg Documented By: Admin: 11/16/24 09:32 Dose: 1,250 mg Documented By: Admin: 11/15/24 08:54 Dose: 1,250 mg Documented By: Admin: 11/14/24 10:34 Dose: Not Given Documented By: JOSEPHINE Lidocaine (Lidocaine 5% 1 Patch) 1 patch TD QAM [place] Stop: 12/14/24 08:59 Last Admin: 11/17/24 08:52 Dose: 1 patch Documented By: Admin: 11/16/24 09:34 Dose: 1 patch Documented By: Admin: 11/15/24 09:14 Dose: 1 patch Documented By: Admin: 11/14/24 10:28 Dose: Not Given Documented By: JOSEPHINE Melatonin (Melatonin 3 Mg Tab) 4.5 mg PO HS PRN PRN Reason: Insomnia Stop: 12/13/24 17:00 Last Admin: 11/15/24 21:05 Dose: 4.5 mg Documented By: Admin: 11/14/24 21:02 Dose: 4.5 mg Documented By: ERIC Mirtazapine (Mirtazapine Tab 15 Mg Tab) 7.5 mg PO HS [place] Stop: 12/13/24 20:59 Last Admin: 11/16/24 22:04 Dose: 7.5 mg Documented By: Admin: 11/15/24 21:07 Dose: 7.5 mg Documented By: Admin: 11/14/24 21:04 Dose: 7.5 mg Documented By: Admin: 11/13/24 21:57 Dose: 7.5 mg Documented By: CLEMENTINA Miscellaneous (Remove Lidoderm Patch) 1 each N/A DAILY@2100 [facility] Stop: 12/13/24 20:59 Last Admin: 11/16/24 22:04 Dose: 1 each Documented By: Admin: 11/15/24 21:06 Dose: 1 each Documented By: Admin: 11/14/24 21:05 Dose: 1 each Documented By: Admin: 11/13/24 21:56 Dose: 1 each Documented By: CLEMENTINA Ondansetron HCl (Ondansetron 4 Mg Od Tab) 4 mg PO Q6H PRN PRN Reason: Nausea And Vomiting Stop: 12/13/24 17:00 Last Admin: 11/17/24 08:57 Dose: 4 mg Documented By: Admin: 11/16/24 19:42 Dose: 4 mg Documented By: MONA Oxycodone HCl (Oxycodone Hcl 15 Mg Tabcr (Oxycontin)) 15 mg PO Q12 [place] Stop: 11/27/24 20:59 Last Admin: 11/17/24 08:54 Dose: 15 mg Documented By: Admin: 11/16/24 20:44 Dose: 15 mg Documented By: Admin: 11/16/24 09:31 Dose: 15 mg Documented By: Admin: 11/15/24 21:05 Dose: 15 mg Documented By: Admin: 11/15/24 09:08 Dose: 15 mg Documented By: Admin: 11/14/24 21:03 Dose: 15 mg Documented By: Admin: 11/14/24 10:23 Dose: 15 mg Documented By: Admin: 11/13/24 21:58 Dose: Not Given Documented By: CLEMENTINA Polyethylene Glycol (Polyethylene (Miralax) 17 Gm Pack) 17 gm PO DAILY [place] Stop: 12/14/24 08:59 Last Admin: 11/17/24 08:44 Dose: Not Given Documented By: Admin: 11/16/24 09:33 Dose: Not Given Documented By: Admin: 11/15/24 08:56 Dose: Not Given Documented By: Admin: 11/14/24 08:34 Dose: Not Given Documented By: JOSEPHINE Senna/Docusate Sodium (Docusate Sodium/Senna 50/8.6mg Tab) 1 tab PO BID [place] Stop: 12/13/24 20:59 Last Admin: 11/17/24 08:53 Dose: 1 tab Documented By: Admin: 11/16/24 20:30 Dose: Not Given Documented By: Admin: 11/16/24 09:30 Dose: 1 tab Documented By: Admin: 11/15/24 20:32 Dose: Not Given Documented By: HKTyler Admin: 11/15/24 09:11 Dose: Not Given Documented By: Admin: 11/14/24 21:09 Dose: Not Given Documented By: Admin: 11/14/24 08:34 Dose: Not Given Documented By: Admin: 11/13/24 21:54 Dose: 1 tab Documented By: CLEMENTINA Voriconazole (Voriconazole 200 Mg Tablet) 200 mg PO Q12 [place] Stop: 12/13/24 20:59 Last Admin: 11/17/24 09:13 Dose: 200 mg Documented By: Admin: 11/16/24 23:20 Dose: 200 mg Documented By: Admin: 11/16/24 09:31 Dose: 200 mg Documented By: Admin: 11/15/24 21:06 Dose: 200 mg Documented By: HKTyler Admin: 11/15/24 08:54 Dose: 200 mg Documented By: Admin: 11/14/24 21:05 Dose: 200 mg Documented By: HKTyler Admin: 11/14/24 10:16 Dose: 200 mg Documented By: Admin: 11/13/24 21:54 Dose: 200 mg Documented By: CLEMENTINA (5) AML (acute myeloblastic leukemia) Leukemia Active/Remission status: without remission Qualified Code(s): C92.00 - Acute myeloblastic leukemia, not having achieved remission
[2024-11-17] MEDS ORDERED: MELATONIN 3 MG TAB PO PRN (13:15)
[2024-11-17] MEDS: POTASSIUM CHLORIDE 20 MEQ/15 ML UDC PO STA (14:06)
[2024-11-18] MEDS: POTASSIUM CHLORIDE CRTAB 20 MEQ TABCR PO SCH (08:29)
[2024-11-18 10:42] LABS: Hematocrit (blood only) 28.0 % (37.0-47.0); Hemoglobin 9.0 g/dl (12.0-16.0); Mean Corpuscular Hemoglobin 32.8 pg (25.0-34.0); Mean Corpuscular Volume 102.2 fL (80.0-100.0); Platelet Count 161 K/uL (130-400); RDW Standard Deviation 66.7 fL (36.4-46.3); Red Blood Count 2.74 M/uL (4.20-5.40); White Blood Count 4.50 K/ul (4.8-10.8)
[2024-11-18 11:00] LABS: Anion Gap 8.0 (3-11); Blood Urea Nitrogen 11.0 mg/dl (6-23); Calcium 7.8 mg/dl (8.6-10.3); Carbon Dioxide 22.0 mmol/L (21-32); Chloride 108.0 mmol/L (98-107); Creatinine Clr Calc Pharmacy 88.7 ml/min; Glucose 181.0 mg/dl (70-99(Fasting)); Magnesium 1.5 mg/dl (1.7-2.4); Potassium 3.3 mmol/L (3.5-5.1); Sodium 138.0 mmol/L (136-145)
--- NOTE | 2024-11-18 13:43 | Hospitalist Progress Note ---
Date of Service November 18, 2024 Assessment & Plan (1) Fever: (2) Altered mental status: (3) Bacteremia: (4) Compression fracture of lumbar vertebra: (5) AML (acute myeloblastic leukemia): (6) Dyslipidemia: (7) HTN (hypertension): (8) Anxiety: (9) Diabetes mellitus type II, controlled: Plan 79 year old female with PMH significant for HTN, HLD, DMII, history of pericardial effusion, PSVT s/p ablation in 2004, GERD with esophagitis, primary osteoarthritis of both knees, persistent insomnia, spinal stenosis of lumbar region, sacroiliitis, AML currently undergoing chemotherapy with decitabine/venetoclax on infectious prophylaxis with acyclovir/voriconazole/Levaquin, and lumbar compression fractures who was recently admitted for bilateral iliopsoas muscle fluid collections and staph epidermidis bacteremia and discharged to [facility] for rehab who presents to the [facility] on 11/13/2024 with fevers and confusion. 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 metabolic encephalopathy Plan: -Continue with vancomycin from previous admission recommended by ID for staph epidermidis bacteremia -ID consulted, appreciate recs -medically ready for discharge back to SNF -difficulty with placement in setting of financial concerns Metabolic Encephalopathy, resolving Mild Cognitive Impairment -Patient presenting with confusion described as forgetful/foggy by her daughter -do suspect some level of mild cognitive impairment secondary to age -Head CT negative Plan: -delirium precautions -continue ativan to 0.25mg daily prn for severe anxiety per patient/family request (feels it helps her anxiety prn) -avoid anticholinergics, ativan as much as possible Hypokalemia Hypomagnemia -replenish prn L1 and L3 compression fractures -Continue PT/OT therapy while inpatient -Continue pain regimen from previous admission -stopped lyrica and gabapentin AML undergoing chemotherapy Chronic blood loss anemia History of pancytopenia -Last received chemo in August due to hospitalization/rehab stays -Blood counts stable -Continue suppressive antibiotics including levaquin, voriconazole, acyclovir Hypertension -Continue amlodipine Hyperlipidemia -Continue statin Anxiety/depression -Continue citalopram and mirtazapine doses from previous admission recommended by psych Type 2 diabetes -BSG ACHS and SSI I spent a total of 40 minutes in direct patient care, including [id number] time with the patient and/or family, reviewing medical records, ordering and reviewing diagnostic tests, and coordinating care with other healthcare providers. This time includes: history taking, physical examination, medical decision making, counseling, ECG interpretation, imaging interpretation, lab i nterpretation, orders, and education, excluding time spent in the performance of separately billed services. Admission and Anticipated Discharge Date Admission Date: November 13, 2024 Subjective Patient seen and examined at bedside. Patient doing well today. She states this is the best she has felt in weeks. Review of Systems Review of Systems: CONSTITUTIONAL: fatigue, weakness, chills, all resolved EYES: Patient denies any visual symptoms. EARS, NOSE, AND THROAT: No difficulties with hearing. No symptoms of rhinitis or sore throat. CARDIOVASCULAR: Patient denies chest pains, palpitations, orthopnea and paroxysmal nocturnal dyspnea. RESPIRATORY: No dyspnea on exertion, no wheezing or cough. GI: occasional nausea : No urinary hesitancy or dribbling. No nocturia or urinary frequency. No abnormal urethral discharge. MUSCULOSKELETAL: No myalgias or arthralgias. NEUROLOGIC: No chronic headaches, no seizures. Patient denies numbness, tingling or weakness. PSYCHIATRIC: Patient denies problems with mood disturbance. No problems with anxiety. ENDOCRINE: No excessive urination or excessive thirst. DERMATOLOGIC: Patient denies any rashes or skin changes. Physical Exam Physical Exam: Gen: A&O 3 NAD, cachexia and sarcopenia noted HEENT: NCAT, EOMI, not icteric. External ears normal. No rhinorrhea. Moist mucous membranes. Neck: Supple, full range of motion, no observable masses, No meningeal sign. Lungs: No Respiratory distress. CV: RRR, no edema. Abdomen: Soft, nondistended, No rebound tenderness. MSK: No joint swelling, no redness. Skin: No rashes, petechiae, lesions. Normal color per patient. Neuro: Normal Gait, Grossly intact. Psych: Appropriate for situation. Results & Data Results & Data Vital Signs (Past 12 Hours) Vital Signs Temp Pulse Resp BP Pulse Ox O2 Del Method 11/18/24 08:30 Room Air 11/18/24 08:05 37.1 C 88 18 134/80 93 Room Air Laboratory Results -personally reviewed, Hgb at baseline, WBC at baseline, creatinine at baseline Medications Administered Acetaminophen (Acetaminophen 325 Mg Tab) 650 mg PO Q4H PRN PRN Reason: pain/fever Stop: 12/13/24 14:29 Last Admin: 11/17/24 14:07 Dose: 650 mg Documented By: Admin: 11/13/24 17:41 Dose: 650 mg Documented By: LUCY Acetaminophen (Acetaminophen 500 Mg Tab) 1,000 mg PO Q8 [place] Stop: 12/13/24 17:59 Last Admin: 11/18/24 05:58 Dose: 1,000 mg Documented By: Admin: 11/17/24 22:35 Dose: 1,000 mg Documented By: Admin: 11/17/24 14:08 Dose: Not Given Documented By: Admin: 11/17/24 06:07 Dose: 1,000 mg Documented By: Admin: 11/16/24 22:04 Dose: 1,000 mg Documented By: Admin: 11/16/24 15:32 Dose: 1,000 mg Documented By: Admin: 11/16/24 05:40 Dose: 1,000 mg Documented By: Admin: 11/15/24 21:05 Dose: 1,000 mg Documented By: Admin: 11/15/24 13:50 Dose: 1,000 mg Documented By: Admin: 11/15/24 05:11 Dose: 1,000 mg Documented By: Admin: 11/14/24 21:03 Dose: 1,000 mg Documented By: Admin: 11/14/24 13:48 Dose: 1,000 mg Documented By: Admin: 11/14/24 06:21 Dose: 1,000 mg Documented By: Admin: 11/13/24 18:59 Dose: Not Given Documented By: CLEMENTINA Acyclovir (Acyclovir 400 Mg Tab) 400 mg PO BID [place] Stop: 12/13/24 20:59 Last Admin: 11/18/24 08:19 Dose: 400 mg Documented By: Admin: 11/17/24 22:23 Dose: 400 mg Documented By: Admin: 11/17/24 08:54 Dose: 400 mg Documented By: Admin: 11/16/24 20:44 Dose: 400 mg Documented By: Admin: 11/16/24 09:29 Dose: 400 mg Documented By: Admin: 11/15/24 21:06 Dose: 400 mg Documented By: Admin: 11/15/24 08:54 Dose: 400 mg Documented By: Admin: 11/14/24 21:03 Dose: 400 mg Documented By: Admin: 11/14/24 10:17 Dose: 400 mg Documented By: Admin: 11/13/24 21:56 Dose: 400 mg Documented By: CLEMENTINA Amlodipine Besylate (Amlodipine Besylate 5 Mg Tab) 5 mg PO QAM [place] Stop: 12/14/24 08:59 Last Admin: 11/18/24 08:18 Dose: 5 mg Documented By: Admin: 11/17/24 08:54 Dose: 5 mg Documented By: Admin: 11/16/24 09:31 Dose: 5 mg Documented By: Admin: 11/15/24 08:53 Dose: Not Given Documented By: Admin: 11/14/24 10:18 Dose: 5 mg Documented By: JOSEPHINE Atorvastatin Calcium (Atorvastatin 20 Mg Tab) 20 mg PO HS [place] Stop: 12/13/24 20:59 Last Admin: 11/17/24 22:34 Dose: 20 mg Documented By: Admin: 11/16/24 20:44 Dose: 20 mg Documented By: Admin: 11/15/24 21:07 Dose: 20 mg Documented By: Admin: 11/14/24 21:04 Dose: 20 mg Documented By: Admin: 11/13/24 21:56 Dose: 20 mg Documented By: CLEMENTINA Calcium/Vitamin D (Calcium 600mg + Vit D 400 Iu Tab) 1 tab PO DAILY [place] Stop: 12/15/24 08:59 Last Admin: 11/18/24 08:18 Dose: 1 tab Documented By: Admin: 11/17/24 08:54 Dose: 1 tab Documented By: Admin: 11/16/24 09:30 Dose: 1 tab Documented By: Admin: 11/15/24 09:08 Dose: 1 tab Documented By: JOSEPHINE Citalopram Hydrobromide (Citalopram 20 Mg Tab) 20 mg PO QAM [place] Stop: 12/14/24 08:59 Last Admin: 11/18/24 08:19 Dose: 20 mg Documented By: Admin: 11/17/24 08:54 Dose: 20 mg Documented By: Admin: 11/16/24 09:31 Dose: 20 mg Documented By: Admin: 11/15/24 08:54 Dose: 20 mg Documented By: Admin: 11/14/24 10:34 Dose: Not Given Documented By: JOSEPHINE Cyanocobalamin (Cyanocobalamin (B-12) 500 Mcg Tablet) 1,000 mcg PO QAM [place] Stop: 12/14/24 08:59 Last Admin: 11/18/24 08:18 Dose: 1,000 mcg Documented By: Admin: 11/17/24 08:54 Dose: 1,000 mcg Documented By: Admin: 11/16/24 09:31 Dose: 1,000 mcg Documented By: Admin: 11/15/24 08:54 Dose: 1,000 mcg Documented By: Admin: 11/14/24 10:16 Dose: Not Given Documented By: BRYSON Enoxaparin Sodium (Enoxaparin Inj 40 Mg/0.4 Ml Syr) 40 mg SQ QAM [place] Stop: 12/14/24 08:59 Last Admin: 11/18/24 08:19 Dose: 40 mg Documented By: Admin: 11/17/24 08:54 Dose: 40 mg Documented By: Admin: 11/16/24 09:33 Dose: 40 mg Documented By: Admin: 11/15/24 08:55 Dose: 40 mg Documented By: Admin: 11/14/24 12:35 Dose: 40 mg Documented By: BRYSON Heparin Sodium (Beef Lung) (Heparin 10 Unit/Ml 5 Ml Flush) 5 ml FLUSH PRN PRN PRN Reason: Flush Stop: 12/13/24 18:03 Last Admin: 11/18/24 09:54 Dose: 5 ml Documented By: Admin: 11/13/24 20:42 Dose: 5 ml Documented By: WILLY Vancomycin HCl 750 mg/ Sodium (Chloride) 265 mls @ 200 mls/hr IV Q8H [place] Stop: 11/27/24 15:59 Last Infusion: 11/18/24 09:54 Dose: Infused Documented By: Admin: 11/18/24 08:30 Dose: 200 mls/hr Documented By: Infusion: 11/18/24 01:07 Dose: Infused Documented By: Admin: 11/17/24 23:47 Dose: 200 mls/hr Documented By: Infusion: 11/17/24 17:24 Dose: Infused Documented By: Admin: 11/17/24 15:50 Dose: 200 mls/hr Documented By: Infusion: 11/17/24 11:04 Dose: Infused Documented By: Admin: 11/17/24 09:36 Dose: 200 mls/hr Documented By: Infusion: 11/17/24 00:55 Dose: Infused Documented By: Admin: 11/16/24 23:20 Dose: 200 mls/hr Documented By: Infusion: 11/16/24 18:34 Dose: Infused Documented By: Admin: 11/16/24 16:41 Dose: 200 mls/hr Documented By: Infusion: 11/16/24 11:10 Dose: Infused Documented By: Admin: 11/16/24 09:03 Dose: 200 mls/hr Documented By: Infusion: 11/16/24 01:20 Dose: Infused Documented By: Admin: 11/15/24 23:40 Dose: 200 mls/hr Documented By: Infusion: 11/15/24 17:43 Dose: Infused Documented By: Admin: 11/15/24 16:08 Dose: 200 mls/hr Documented By: Infusion: 11/15/24 10:51 Dose: Infused Documented By: Admin: 11/15/24 09:27 Dose: 200 mls/hr Documented By: Infusion: 11/15/24 03:27 Dose: Infused Documented By: Admin: 11/15/24 01:14 Dose: 200 mls/hr Documented By: Infusion: 11/14/24 17:20 Dose: Infused Documented By: Admin: 11/14/24 16:00 Dose: 200 mls/hr Documented By: Infusion: 11/14/24 10:15 Dose: Infused Documented By: Admin: 11/14/24 08:30 Dose: 200 mls/hr Documented By: Infusion: 11/14/24 00:43 Dose: Infused Documented By: Admin: 11/13/24 23:22 Dose: 200 mls/hr Documented By: Infusion: 11/13/24 18:26 Dose: Infused Documented By: Admin: 11/13/24 16:49 Dose: 200 mls/hr Documented By: MPS Insulin Aspart (Insulin Aspart Per Unit Charge) 0 units SC ACHS [place] Stop: 12/13/24 16:29 Last Admin: 11/18/24 12:41 Dose: Not Given Documented By: Admin: 11/18/24 08:42 Dose: Not Given Documented By: Admin: 11/17/24 21:44 Dose: Not Given Documented By: BE Co-signed By: CHAITANYA Admin: 11/17/24 17:56 Dose: Not Given Documented By: Admin: 11/17/24 12:59 Dose: Not Given Documented By: Admin: 11/17/24 08:45 Dose: Not Given Documented By: Admin: 11/16/24 22:05 Dose: Not Given Documented By: Admin: 11/16/24 17:49 Dose: Not Given Documented By: Admin: 11/16/24 13:01 Dose: Not Given Documented By: Admin: 11/16/24 09:07 Dose: Not Given Documented By: Admin: 11/15/24 20:28 Dose: Not Given Documented By: HKTyler Co-signed By: MONA Admin: 11/15/24 17:41 Dose: Not Given Documented By: JOSEPHINE Co-signed By: BERTRAND Admin: 11/15/24 12:32 Dose: Not Given Documented By: BRYSONH Co-signed By: AAH Admin: 11/15/24 10:00 Dose: Not Given Documented By: DMH Co-signed By: AAH Admin: 11/14/24 20:53 Dose: Not Given Documented By: ERIC Co-signed By: MARQUIS Admin: 11/14/24 17:45 Dose: Not Given Documented By: JOSEPHINE Co-signed By: ZAC Admin: 11/14/24 12:39 Dose: Not Given Documented By: JOSEPHINE Co-signed By: JOSEPHINE(2) Admin: 11/14/24 09:37 Dose: Not Given Documented By: JOSEPHINE Co-signed By: JENNIFER Admin: 11/13/24 20:46 Dose: Not Given Documented By: Admin: 11/13/24 17:39 Dose: Not Given Documented By: MPS Lactobacillus Acidophilus (Advanced Probiotic 625 Mg Capsule) 1,250 mg PO DAILY [place] Stop: 12/14/24 08:59 Last Admin: 11/18/24 08:18 Dose: 1,250 mg Documented By: Admin: 11/17/24 08:54 Dose: 1,250 mg Documented By: Admin: 11/16/24 09:32 Dose: 1,250 mg Documented By: Admin: 11/15/24 08:54 Dose: 1,250 mg Documented By: Admin: 11/14/24 10:34 Dose: Not Given Documented By: JOSEPHINE Lidocaine (Lidocaine 5% 1 Patch) 1 patch TD QAM [place] Stop: 12/14/24 08:59 Last Admin: 11/18/24 08:19 Dose: 1 patch Documented By: Admin: 11/17/24 08:52 Dose: 1 patch Documented By: Admin: 11/16/24 09:34 Dose: 1 patch Documented By: Admin: 11/15/24 09:14 Dose: 1 patch Documented By: Admin: 11/14/24 10:28 Dose: Not Given Documented By: JOSEPHINE Mirtazapine (Mirtazapine Tab 15 Mg Tab) 7.5 mg PO HS [facility] Stop: 12/13/24 20:59 Last Admin: 11/17/24 22:23 Dose: 7.5 mg Documented By: Admin: 11/16/24 22:04 Dose: 7.5 mg Documented By: Admin: 11/15/24 21:07 Dose: 7.5 mg Documented By: Admin: 11/14/24 21:04 Dose: 7.5 mg Documented By: HKTyler Admin: 11/13/24 21:57 Dose: 7.5 mg Documented By: CLEMENTINA Miscellaneous (Remove Lidoderm Patch) 1 each N/A DAILY@2100 [facility] Stop: 12/13/24 20:59 Last Admin: 11/17/24 22:25 Dose: Not Given Documented By: Admin: 11/17/24 21:17 Dose: 1 each Documented By: Admin: 11/16/24 22:04 Dose: 1 each Documented By: Admin: 11/15/24 21:06 Dose: 1 each Documented By: Admin: 11/14/24 21:05 Dose: 1 each Documented By: Admin: 11/13/24 21:56 Dose: 1 each Documented By: CLEMENTINA Ondansetron HCl (Ondansetron 4 Mg Od Tab) 4 mg PO Q6H PRN PRN Reason: Nausea And Vomiting Stop: 12/13/24 17:00 Last Admin: 11/17/24 08:57 Dose: 4 mg Documented By: Admin: 11/16/24 19:42 Dose: 4 mg Documented By: MONA Oxycodone HCl (Oxycodone Hcl 15 Mg Tabcr (Oxycontin)) 15 mg PO Q12 [place] Stop: 11/27/24 20:59 Last Admin: 11/18/24 08:30 Dose: 15 mg Documented By: Admin: 11/17/24 22:31 Dose: 15 mg Documented By: Admin: 11/17/24 08:54 Dose: 15 mg Documented By: Admin: 11/16/24 20:44 Dose: 15 mg Documented By: Admin: 11/16/24 09:31 Dose: 15 mg Documented By: Admin: 11/15/24 21:05 Dose: 15 mg Documented By: Admin: 11/15/24 09:08 Dose: 15 mg Documented By: Admin: 11/14/24 21:03 Dose: 15 mg Documented By: Admin: 11/14/24 10:23 Dose: 15 mg Documented By: Admin: 11/13/24 21:58 Dose: Not Given Documented By: CLEMENTINA Polyethylene Glycol (Polyethylene (Miralax) 17 Gm Pack) 17 gm PO DAILY [place] Stop: 12/14/24 08:59 Last Admin: 11/18/24 08:30 Dose: 17 gm Documented By: Admin: 11/17/24 08:44 Dose: Not Given Documented By: Admin: 11/16/24 09:33 Dose: Not Given Documented By: Admin: 11/15/24 08:56 Dose: Not Given Documented By: Admin: 11/14/24 08:34 Dose: Not Given Documented By: JOSEPHINE Potassium Chloride (Potassium Chloride Crtab 20 Meq Tabcr) 40 meq PO DAILY [place] Stop: 12/18/24 08:59 Last Admin: 11/18/24 08:29 Dose: 40 meq Documented By: DANUTA Senna/Docusate Sodium (Docusate Sodium/Senna 50/8.6mg Tab) 1 tab PO BID [place] Stop: 12/13/24 20:59 Last Admin: 11/18/24 08:29 Dose: 1 tab Documented By: Admin: 11/17/24 22:22 Dose: 1 tab Documented By: Admin: 11/17/24 08:53 Dose: 1 tab Documented By: Admin: 11/16/24 20:30 Dose: Not Given Documented By: Admin: 11/16/24 09:30 Dose: 1 tab Documented By: Admin: 11/15/24 20:32 Dose: Not Given Documented By: Admin: 11/15/24 09:11 Dose: Not Given Documented By: Admin: 11/14/24 21:09 Dose: Not Given Documented By: Admin: 11/14/24 08:34 Dose: Not Given Documented By: Admin: 11/13/24 21:54 Dose: 1 tab Documented By: CLEMENTINA Voriconazole (Voriconazole 200 Mg Tablet) 200 mg PO Q12 [place] Stop: 12/13/24 20:59 Last Admin: 11/18/24 08:20 Dose: 200 mg Documented By: Admin: 11/17/24 22:24 Dose: 200 mg Documented By: Admin: 11/17/24 09:13 Dose: 200 mg Documented By: Admin: 11/16/24 23:20 Dose: 200 mg Documented By: Admin: 11/16/24 09:31 Dose: 200 mg Documented By: Admin: 11/15/24 21:06 Dose: 200 mg Documented By: Admin: 11/15/24 08:54 Dose: 200 mg Documented By: Admin: 11/14/24 21:05 Dose: 200 mg Documented By: Admin: 11/14/24 10:16 Dose: 200 mg Documented By: Admin: 11/13/24 21:54 Dose: 200 mg Documented By: CLEMENTINA
[2024-11-18] MEDS ORDERED: SODIUM PHOSPHATE 3 MMOL/1 ML INFUSION IV STA (16:25)
[2024-11-18] MEDS: MAGNESIUM SULFATE / D5W 1 GM/100 ML BAG IV SCH (17:26)
[2024-11-18] MEDS: SODIUM PHOSPHATE 21 MMOL in SODIUM CHLORIDE 0.9% 500 ML IV ONE (17:34)
[2024-11-19 08:56] LABS: Hematocrit (blood only) 29.0 % (37.0-47.0); Hemoglobin 9.1 g/dl (12.0-16.0); Mean Corpuscular Hemoglobin 31.9 pg (25.0-34.0); Mean Corpuscular Volume 101.8 fL (80.0-100.0); Platelet Count 142 K/uL (130-400); RDW Standard Deviation 66.6 fL (36.4-46.3); Red Blood Count 2.85 M/uL (4.20-5.40); White Blood Count 5.04 K/ul (4.8-10.8)
[2024-11-19 09:19] LABS: Anion Gap 7.0 (3-11); Blood Urea Nitrogen 8.0 mg/dl (6-23); Calcium 7.8 mg/dl (8.6-10.3); Carbon Dioxide 26.0 mmol/L (21-32); Chloride 107.0 mmol/L (98-107); Creatinine Clr Calc Pharmacy 106.5 ml/min; Glucose 96.0 mg/dl (70-99(Fasting)); Potassium 3.3 mmol/L (3.5-5.1); Sodium 140.0 mmol/L (136-145)
[2024-11-19] MEDS: MAGNESIUM OXIDE 400 MG TAB PO SCH (10:55)
--- NOTE | 2024-11-19 11:49 | Hospitalist Progress Note ---
Date of Service November 19, 2024 Assessment & Plan (1) Fever: (2) Altered mental status: (3) Bacteremia: (4) Compression fracture of lumbar vertebra: (5) AML (acute myeloblastic leukemia): (6) Dyslipidemia: (7) HTN (hypertension): (8) Anxiety: (9) Diabetes mellitus type II, controlled: Plan 79 year old female with PMH significant for HTN, HLD, DMII, history of pericardial effusion, PSVT s/p ablation in 2004, GERD with esophagitis, primary osteoarthritis of both knees, persistent insomnia, spinal stenosis of lumbar region, sacroiliitis, AML currently undergoing chemotherapy with decitabine/venetoclax on infectious prophylaxis with acyclovir/voriconazole/Levaquin, and lumbar compression fractures who was recently admitted for bilateral iliopsoas muscle fluid collections and staph epidermidis bacteremia and discharged to [facility] for rehab who presented to the ED on 11/13/2024 with fevers and confusion. Fever History of bilateral iliopsoas muscle fluid collection s/p IR drainage History of staph epidermidis bacteremia At [facility] fever up to 103 reported with associated chills Workup grossly unremarkable: blood cx negative, CXR negative, unremarkable CTAP, lumbar spine unremarkable Afebrile since admission Continue with vancomycin for 6 weeks recommended by ID for staph epidermidis bacteremia-> last day 11/27/2024 Medically ready for discharge back to SNF vs home with pending auth approval Metabolic encephalopathy, resolving Mild cognitive impairment Patient presented with confusion described as forgetful/foggy by her daughter Head CT negative Suspect mild cognitive impairment due to age, dehydration and polypharmacy as potential drivers of metabolic encephalopathy Lyrica and gabapentin discontinued by previous provider Delirium precautions Continue ativan to 0.25mg daily prn for severe anxiety per patient/family request (feels it helps her anxiety prn) Avoid anticholinergics Hypokalemia Hypomagnesemia Replete as needed Monitor labs L1 and L3 compression fractures Continue PT/OT therapy while inpatient Continue pain control with oxycontin and oxycodone PRN per Palliative note from previous admission AML undergoing chemotherapy Chronic blood loss anemia History of pancytopenia Last received chemo in August due to hospitalization/rehab stays Blood counts stable Continue suppressive antibiotics including levaquin, voriconazole, acyclovir Hypertension Continue amlodipine Hyperlipidemia Continue statin Anxiety/depression Continue citalopram and mirtazapine doses from previous admission recommended by psych Type 2 diabetes BSG ACHS and SSI DVT Prophylaxis: SQ Lovenox Code Status: DNR/DNI PCP: [facility] Disposition: medically cleared for dc, awaiting placement, CM following Patient seen in collaboration with Dr Olson. Please see addendum. I spent a total of 60 minutes coordinating, documenting and providing care for this patient excluding time spent in the performance of separately billed services or time spent by another provider/QHP. Admission and Anticipated Discharge Date Admission Date: November 13, 2024 Supervising Physician Co-Signing Physician Notes Patient is seen and examined at bedside as a follow-up for fever in the setting of bilateral iliopsoas muscle fluid collection status post IR drainage and staph epidermidis bacteremia. Patient has been afebrile, hemodynamically stable, doing fine. Today morning she had slight nausea, will continue to follow-up on this, zofran given. She is awaiting placement. On exam, patient on room air, cardiac/lung/abdomen examination WNL. Rest of the examination as above. Total time spent independently: 8 minutes. I have seen and examined the patient and have discussed the case with the provider above. I agree with the assessment and plan as stated. Subjective Patient seen resting in bed Reports nausea this morning Denies headache, dizziness, chest pain, SOB, abdominal pain, vomiting, diarrhea Review of Systems Review of Systems: All systems reviewed & are unremarkable except as noted in HPI & below Physical Exam Physical Exam: General/Psych: ill appearing, laying in bed, NAD, conversing easily, flat affect Head: normocephalic, atraumatic Eyes: normal inspection, PERRL, conjunctivae pink ENT: external ear and nose normal, oropharynx normal Neck: normal visual inspection, trachea midline Respiratory: normal respiratory effort, lungs clear to auscultation, no wheeze/rales/rhonchi, no accessory muscle use Cardiovascular: regular rate and rhythm, no murmur/rub/gallop, no JVD Extremities: no cyanosis or clubbing, normal peripheral pulses, no BLE edema Abdomen/GI: normal bowel sounds, soft, nontender Neurologic/MSK: A+Ox3, motor strength 5/5, moves all extremities Skin: no rashes, normal color, warm and dry Results & Data Results & Data Vital Signs (Past 12 Hours) Vital Signs Temp Pulse Resp BP Pulse Ox O2 Del Method 11/19/24 07:49 36.7 C 98 H 18 154/82 H 95 Room Air Laboratory Results Short CBC 11/19/24 Range/Units 08:33 WBC 5.04 (4.8-10.8) K/ul Hgb 9.1 L (12.0-16.0) g/dl Hct 29.0 L (37.0-47.0) % Plt Count 142 (130-400) K/uL BMP 11/19/24 08:33 Sodium 140 Potassium 3.3 L Chloride 107 Carbon Dioxide 26 BUN 8 Creatinine 0.35 L Glucose 96 Calcium 7.8 L I have independently reviewed and interpreted patient's labs including CBC and BMP Medications Administered Current Inpatient Medications Acetaminophen (Acetaminophen 500 Mg Tab) 1,000 mg PO Q8 [place] Stop: 12/13/24 17:59 Last Admin: 11/19/24 06:33 Dose: 1,000 mg Acyclovir (Acyclovir 400 Mg Tab) 400 mg PO BID [place] Stop: 12/13/24 20:59 Last Admin: 11/19/24 10:56 Dose: 400 mg Amlodipine Besylate (Amlodipine Besylate 5 Mg Tab) 5 mg PO QAM [place] Stop: 12/14/24 08:59 Last Admin: 11/19/24 10:56 Dose: 5 mg Atorvastatin Calcium (Atorvastatin 20 Mg Tab) 20 mg PO HS [place] Stop: 12/13/24 20:59 Last Admin: 11/18/24 21:26 Dose: 20 mg Calcium/Vitamin D (Calcium 600mg + Vit D 400 Iu Tab) 1 tab PO DAILY [place] Stop: 12/15/24 08:59 Last Admin: 11/19/24 10:56 Dose: 1 tab Citalopram Hydrobromide (Citalopram 20 Mg Tab) 20 mg PO QAM [place] Stop: 12/14/24 08:59 Last Admin: 11/19/24 10:56 Dose: 20 mg Cyanocobalamin (Cyanocobalamin (B-12) 500 Mcg Tablet) 1,000 mcg PO QAM [place] Stop: 12/14/24 08:59 Last Admin: 11/19/24 10:56 Dose: 1,000 mcg Dextrose (Dextrose 50% 50 Ml Syringe) 25 - 50 ml IV UD PRN; Protocol PRN Reason: Hypoglycemia Protocol Stop: 12/13/24 14:29 Enoxaparin Sodium (Enoxaparin Inj 40 Mg/0.4 Ml Syr) 40 mg SQ QAM [place] Stop: 12/14/24 08:59 Last Admin: 11/19/24 10:55 Dose: 40 mg Glucagon (Glucagon For Inj 1 Mg Vial) 1 mg SQ UD PRN; Protocol PRN Reason: Hypoglycemia Protocol Stop: 12/13/24 14:29 Glucose (Glucose 40% Gel 15 Gm Tube) 15 - 30 gm PO UD PRN; Protocol PRN Reason: Hypoglycemia Protocol Stop: 12/13/24 14:29 Glucose (Glucose 10 Tab/Tube) 4 - 8 tab PO UD PRN; Protocol PRN Reason: Hypoglycemia Protocol Stop: 12/13/24 14:29 Heparin Sodium (Beef Lung) (Heparin 10 Unit/Ml 5 Ml Flush) 5 ml FLUSH PRN PRN PRN Reason: Flush Stop: 12/13/24 18:03 Last Admin: 11/19/24 01:31 Dose: 5 ml Vancomycin HCl 750 mg/ Sodium (Chloride) 265 mls @ 200 mls/hr IV Q8H [place] Stop: 11/27/24 15:59 Last Infusion: 11/19/24 10:59 Dose: Infused Insulin Aspart (Insulin Aspart Per Unit Charge) 0 units SC ACHS [place] Stop: 12/13/24 16:29 Last Admin: 11/19/24 08:43 Dose: Not Given Lactobacillus Acidophilus (Advanced Probiotic 625 Mg Capsule) 1,250 mg PO DAILY [place] Stop: 12/14/24 08:59 Last Admin: 11/19/24 10:55 Dose: 1,250 mg Lidocaine (Lidocaine 5% 1 Patch) 1 patch TD QAM [place] Stop: 12/14/24 08:59 Last Admin: 11/18/24 08:19 Dose: 1 patch Lorazepam (Lorazepam 0.5 Mg Tab) 0.25 mg PO DAILY PRN PRN Reason: Anxiety Stop: 12/14/24 17:42 Magnesium Oxide (Magnesium Oxide 400 Mg Tab) 400 mg PO QAM [place] Stop: 12/19/24 08:59 Last Admin: 11/19/24 10:55 Dose: 400 mg Melatonin (Melatonin 3 Mg Tab) 3 mg PO HS PRN PRN Reason: Insomnia Stop: 12/13/24 17:00 Mirtazapine (Mirtazapine Tab 15 Mg Tab) 7.5 mg PO HS [place] Stop: 12/13/24 20:59 Last Admin: 11/18/24 21:27 Dose: 7.5 mg Miscellaneous (Carbohydrates For Hypoglycemia ) 15 - 30 gm PO UD PRN PRN Reason: Hypoglycemia Protocol Stop: 12/13/24 14:29 Miscellaneous (Remove Lidoderm Patch) 1 each N/A DAILY@2100 [place] Stop: 12/13/24 20:59 Last Admin: 11/17/24 22:25 Dose: Not Given Miscellaneous Information (Vancomycin Consult Active) 1 each N/A UD PRN PRN Reason: Consult Stop: 12/13/24 12:33 Ondansetron HCl (Ondansetron 4 Mg Od Tab) 4 mg PO Q6H PRN PRN Reason: Nausea And Vomiting Stop: 12/13/24 17:00 Last Admin: 11/19/24 08:52 Dose: 4 mg Oxycodone HCl (Oxycodone Hcl Ir 5 Mg Tab (Immediate Release)) 5 mg PO Q6H PRN PRN Reason: Severe Pain (Scale 7, 8, 9,10) Stop: 11/27/24 17:00 Oxycodone HCl (Oxycodone Hcl 15 Mg Tabcr (Oxycontin)) 15 mg PO Q12 [place] Stop: 11/27/24 20:59 Last Admin: 11/18/24 21:27 Dose: 15 mg Polyethylene Glycol (Polyethylene (Miralax) 17 Gm Pack) 17 gm PO DAILY PRN PRN Reason: Constipation Stop: 12/13/24 14:29 Polyethylene Glycol (Polyethylene (Miralax) 17 Gm Pack) 17 gm PO DAILY [place] Stop: 12/14/24 08:59 Last Admin: 11/19/24 11:05 Dose: 17 gm Potassium Chloride (Potassium Chloride Crtab 20 Meq Tabcr) 40 meq PO DAILY [place] Stop: 12/18/24 08:59 Last Admin: 11/18/24 08:29 Dose: 40 meq Senna/Docusate Sodium (Docusate Sodium/Senna 50/8.6mg Tab) 1 tab PO BID [place] Stop: 12/13/24 20:59 Last Admin: 11/19/24 11:05 Dose: 1 tab Voriconazole (Voriconazole 200 Mg Tablet) 200 mg PO Q12 [place] Stop: 12/13/24 20:59 Last Admin: 11/19/24 10:57 Dose: 200 mg
[2024-11-19] MEDS: CALCIUM CARBONATE 500 MG CHEWABLE TAB PO ONE (12:03)
[2024-11-19] MEDS: METOCLOPRAMIDE HCL INJ 5 MG/ML 2 ML VIAL IV STA (12:09)
[2024-11-19] MEDS: CARBOHYDRATES FOR HYPOGLYCEMIA PO PRN (20:50)
[2024-11-20 06:19] LABS: Hematocrit (blood only) 26.5 % (37.0-47.0); Hemoglobin 8.1 g/dl (12.0-16.0); Mean Corpuscular Hemoglobin 31.9 pg (25.0-34.0); Mean Corpuscular Volume 104.3 fL (80.0-100.0); Platelet Count 140 K/uL (130-400); RDW Standard Deviation 69.9 fL (36.4-46.3); Red Blood Count 2.54 M/uL (4.20-5.40); White Blood Count 4.16 K/ul (4.8-10.8)
[2024-11-20 06:49] LABS: Anion Gap 5.0 (3-11); Blood Urea Nitrogen 11.0 mg/dl (6-23); Calcium 7.9 mg/dl (8.6-10.3); Carbon Dioxide 27.0 mmol/L (21-32); Chloride 109.0 mmol/L (98-107); Creatinine Clr Calc Pharmacy 90.9 ml/min; Glucose 68.0 mg/dl (70-99(Fasting)); Potassium 3.9 mmol/L (3.5-5.1); Sodium 141.0 mmol/L (136-145)
--- NOTE | 2024-11-20 11:34 | Hospitalist Progress Note ---
Date of Service November 20, 2024 Assessment & Plan (1) Fever: (2) Altered mental status: (3) Bacteremia: (4) Compression fracture of lumbar vertebra: (5) AML (acute myeloblastic leukemia): (6) Dyslipidemia: (7) HTN (hypertension): (8) Anxiety: (9) Diabetes mellitus type II, controlled: Plan 79 year old female with PMH significant for HTN, HLD, DMII, history of pericardial effusion, PSVT s/p ablation in 2004, GERD with esophagitis, primary osteoarthritis of both knees, persistent insomnia, spinal stenosis of lumbar region, sacroiliitis, AML currently undergoing chemotherapy with decitabine/venetoclax on infectious prophylaxis with acyclovir/voriconazole/Levaquin, and lumbar compression fractures who was recently admitted for bilateral iliopsoas muscle fluid collections and staph epidermidis bacteremia and discharged to [facility] for rehab who presented to the ED on 11/13/2024 with fevers and confusion. Fever History of bilateral iliopsoas muscle fluid collection s/p IR drainage History of staph epidermidis bacteremia At [facility] fever up to 103 reported with associated chills Workup grossly unremarkable: blood cx negative, CXR negative, unremarkable CTAP, lumbar spine unremarkable Afebrile since admission Continue with vancomycin for 6 weeks recommended by ID for staph epidermidis bacteremia-> last day 11/27/2024 Medically ready for discharge back to SNF vs home with HH pending auth approval Metabolic encephalopathy, resolving Mild cognitive impairment Patient presented with confusion described as forgetful/foggy by her daughter Head CT negative Suspect mild cognitive impairment due to age, dehydration and polypharmacy as potential drivers of metabolic encephalopathy Lyrica and gabapentin discontinued by previous provider Continue ativan to 0.25mg daily prn for severe anxiety per patient/family request (feels it helps her anxiety prn) Avoid anticholinergics Hypokalemia Hypomagnesemia Replete as needed Monitor labs L1 and L3 compression fractures Continue PT/OT therapy while inpatient Continue pain control with oxycontin and oxycodone PRN per Palliative note from previous admission AML undergoing chemotherapy Chronic blood loss anemia History of pancytopenia Last received chemo in August due to hospitalization/rehab stays Blood counts stable Continue suppressive antibiotics including levaquin, voriconazole, acyclovir Hypertension Continue amlodipine Hyperlipidemia Continue statin Anxiety/depression Continue citalopram and mirtazapine doses from previous admission recommended by psych Type 2 diabetes BSG ACHS and SSI DVT Prophylaxis: SQ Lovenox Code Status: DNR/DNI PCP: [facility] Disposition: medically cleared for dc, awaiting placement, CM following I spent a total of 30 minutes coordinating, documenting and providing care for this patient excluding time spent in the performance of separately billed services or time spent by another provider/QHP. Admission and Anticipated Discharge Date Admission Date: November 13, 2024 Supervising Physician Co-Signing Physician Notes Patient is seen and examined at bedside as a follow-up for fever in the setting of bilateral iliopsoas muscle fluid collection status post IR drainage and staph epidermidis bacteremia. Patient has been afebrile, hemodynamically stable, doing fine. Today morning she feeling better and improvement in nausea. She is awaiting placement. On exam, patient on room air, cardiac/lung/abdomen examination WNL. Rest of the examination as above. Total time spent independently: 12 minutes. I have seen and examined the patient and have discussed the case with the provider above. I agree with the assessment and plan as stated. Subjective Patient seen resting in bed Reports nausea this morning Denies headache, dizziness, chest pain, SOB, abdominal pain, vomiting, diarrhea Patient did report some nausea that resolved with zofran this am ; otherwise denies any complaints Review of Systems Review of Systems: All systems reviewed & are unremarkable except as noted in HPI & below Physical Exam Constitutional: WD/WN, vitals as above Eyes: PERRL, conjunctivae normal, anicteric sclerae Neck: trachea midline, no thyromegaly Respiratory: normal respiratory effort, lungs clear to auscultation Cardiovascular: RRR, no murmur, no edema Gastrointestinal (Abdomen): normal bowel sounds, soft, nontender, no hepatosplenomegaly Musculoskeletal: no cyanosis or clubbing, extremities motor strength 5/5 Neurologic: PERRL, EOMI, accommodation nl, no face palsy, no dysarthria Psychiatric: A+Ox3, euthymic affect Lymphatic: no cervical or axillary lymphadenopathy Results & Data Results & Data Vital Signs (Past 12 Hours) Vital Signs Temp Pulse Resp BP Pulse Ox O2 Del Method 11/20/24 09:16 36.5 C 91 H 18 123/67 96 Room Air 11/20/24 07:49 Room Air 11/19/24 23:32 36.7 C 78 18 114/59 L 93 Room Air Diagnostic Findings Laboratory Results WBC 4.16 K/ul (4.8-10.8) L 11/20/24 05: RBC 2.54 M/uL (4.20-5.40) L 11/20/24 05:29 Hgb 8.1 g/dl (12.0-16.0) L 11/20/24 05:29 Hct 26.5 % (37.0-47.0) L 11/20/24 05:29 MCV 104.3 fL (80.0-100.0) H 11/20/24 05: MCH 31.9 pg (25.0-34.0) 11/20/24 05: MCHC 30.6 g/dL (32.0-36.0) L 11/20/24 05: RDW Std Deviation 69.9 fL (36.4-46.3) H 11/20/24 05: RDW Coeff of Patti 18.2 % (11.5-14.5) H 11/20/24 05: Plt Count 140 K/uL (130-400) 11/20/24 05: MPV 10.1 fL (9.4-12.4) 11/20/24 05: Immature Gran % (Auto) 0.7 % 11/17/24 07:23 Neut % (Auto) 63.1 % 11/17/24 07:23 Lymph % (Auto) 22.9 % 11/17/24 07:23 [place] % (Auto) 10.6 % 11/17/24 07:23 Eos % (Auto) 2.0 % 11/17/24 07:23 Baso % (Auto) 0.7 % 11/17/24 07:23 Neut # (Auto) 2.57 K/uL (1.40-6.50) 11/17/24 07:23 Lymph # (Auto) 0.93 K/uL (1.20-3.40) L 11/17/24 07:23 [place] # (Auto) 0.43 K/uL (0.11-0.59) 11/17/24 07:23 Eos # (Auto) 0.08 K/uL (0.00-0.50) 11/17/24 07:23 Baso # (Auto) 0.03 K/uL (0.00-0.20) 11/17/24 07:23 Immature Gran # (Auto) 0.03 K/uL (0.01-0.20) 11/17/24 07:23 Polychromasia 2+ 11/15/24 04:05 Anisocytosis Present 11/14/24 16:23 Tear Drop Cells 1+ 11/14/24 16:23 Ovalocytes 1+ 11/15/24 04:05 Peripher Smr Path Cons 11/14/24 16:23 ESR 83 mm/hr (0-30) H 11/14/24 06:41 PT 12.1 Seconds (9.0-12.0) H 11/15/24 04:05 INR 1.1 (0.9-1.1) 11/15/24 04:05 Fibrinogen 279 mg/dl (184-400) 11/15/24 04:05 Sodium 141 mmol/L (136-145) 11/20/24 05:35 Potassium 3.9 mmol/L (3.5-5.1) 11/20/24 05:35 Chloride 109 mmol/L (98-107) H 11/20/24 05:35 Carbon Dioxide 27 mmol/L (21-32) 11/20/24 05:35 Anion Gap 5 (3-11) 11/20/24 05:35 BUN 11 mg/dl (6-23) 11/20/24 05:35 Creatinine 0.41 mg/dl (0.6-1.2) L 11/20/24 05:35 Est Cr Clr Drug Dosing 90.9 ml/min 11/20/24 05:35 eGFR 101.27 11/20/24 05:35 BUN/Creatinine Ratio 26.8 (10-20) H 11/20/24 05:35 Glucose 68 mg/dl (70-99(Fasting)) L 11/20/24 05:35 POC Glucose 98 mg/dl (70-99) 11/20/24 07:49 Lactate 2.0 mmol/L (0.4-2.0) 11/13/24 10: Uric Acid 3.2 mg/dl (2.6-7.2) 11/14/24 16:33 Calcium 7.9 mg/dl (8.6-10.3) L 11/20/24 05:35 Phosphorus 1.9 mg/dl (2.5-4.9) L 11/18/24 09:54 Magnesium 1.5 mg/dl (1.7-2.4) L 11/18/24 09:54 Total Bilirubin 0.3 mg/dl (0.2-1.0) 11/17/24 07:23 AST 12 U/L (13-39) L 11/17/24 07:23 ALT 6 U/L (7-52) L 11/17/24 07:23 Alkaline Phosphatase 94 U/L (34-104) 11/17/24 07:23 Lactate Dehydrogenase 166 U/L (86-244) 11/14/24 16:33 C-Reactive Protein 3.88 mg/dl (0-0.5) H 11/14/24 06:23 Total Protein 5.4 gm/dl (6.0-8.3) L 11/17/24 07:23 Albumin 2.7 gm/dl (3.4-5.0) L 11/17/24 07:23 Globulin 2.7 gm/dl (2.5-4.0) 11/17/24 07:23 Albumin/Globulin Ratio 1.0 (0.9-2) 11/17/24 07:23 Procalcitonin 18.90 ng/ml (0-0.5) H 11/13/24 10:27 TSH 0.570 uIu/ml (0.300-4.500) 11/14/24 06:23 Urine Color Yellow 11/13/24 13:57 Urine Appearance Clear (Clear) 11/13/24 13:57 Urine pH 6.5 (4.5-7.5) 11/13/24 13:57 Ur Specific Anthony 1.018 (1.000-1.030) 11/13/24 13:57 Urine Protein Negative (Negative) 11/13/24 13:57 Urine Glucose (UA) Negative (Negative) 11/13/24 13:57 Urine Ketones 1+ (Negative) H 11/13/24 13:57 Urine Blood Negative (Negative) 11/13/24 13:57 Urine Nitrite Negative (Negative) 11/13/24 13:57 Urine Bilirubin Negative (Negative) 11/13/24 13:57 Urine Urobilinogen Negative (Negative) 11/13/24 13:57 Ur Leukocyte Esterase Negative (Negative) 11/13/24 13:57 Urine Comment 11/13/24 13:57 Nasal Screen MRSA (PCR) Negative (Negative) 11/14/24 00:43 Random Vancomycin 16.5 mcg/ml (10-20) 11/17/24 07:23 Adenovirus (PCR) Not Detected (NotDetected) 11/13/24 12:44 B. pertussis DNA (PCR) Not Detected (NotDetected) 11/13/24 12:44 B.parapertussis DNA PCR Not Detected (NotDetected) 11/13/24 12:44 C. pneumoniae DNA (PCR) Not Detected (NotDetected) 11/13/24 12:44 Coronavirus OC43 (PCR) Not Detected (NotDetected) 11/13/24 12:44 Coronavirus HKU1 (PCR) Not Detected (NotDetected) 11/13/24 12:44 Coronavirus 229E (PCR) Not Detected (NotDetected) 11/13/24 12:44 SARS-CoV-2 (PCR) Not Detected (NotDetected) 11/13/24 12:44 Coronavirus NL63 (PCR) Not Detected (NotDetected) 11/13/24 12:44 Human Metapneumovir PCR Not Detected (NotDetected) 11/13/24 12:44 Influenza Type A (PCR) Not Detected (NotDetected) 11/13/24 12:44 Influenza Type B (PCR) Not Detected (NotDetected) 11/13/24 12:44 M. pneumoniae (PCR) Not Detected (NotDetected) 11/13/24 12:44 Parainfluenza 1 (PCR) Not Detected (NotDetected) 11/13/24 12:44 Parainfluenza 2 (PCR) Not Detected (NotDetected) 11/13/24 12:44 Parainfluenza 3 (PCR) Not Detected (NotDetected) 11/13/24 12:44 Parainfluenza 4 (PCR) Not Detected (NotDetected) 11/13/24 12:44 RSV (PCR) Not Detected (NotDetected) 11/13/24 12:44 Entero/Rhino (PCR) Not Detected (NotDetected) 11/13/24 12:44 Impressions Chest X-Ray 11/13/24 10:09 XR chest 1V portable CLINICAL HISTORY: fever COMPARISON STUDY: 10/07/2024 FINDINGS: Right PICC line tip is at the SVC. Heart size and pulmonary vasculature are normal. No consolidation or pleural effusion seen. No pneumothorax IMPRESSION: No pneumonia seen. ACT 112: Negative or not required by law. Electronically signed by: Joe Rivero M.D. 11/13/2024 11:[address] 11/13/24 12:33 CT head/brain wo con CLINICAL HISTORY: 79 years-old Female with confusion. Acutely altered mental status TECHNIQUE: Multiple axial CT images of the head were obtained without contrast. A dose lowering technique was utilized adhering to the principles of ALARA. CT DOSE: 625.8 mGy.cm COMPARISON: None. FINDINGS: No acute intracranial hemorrhage, midline shift, intracranial mass, hydrocephalus, territorial ischemia or abnormal extra-axial collection. Involutional changes with white matter hypodensities suggestive of chronic microvascular ischemic disease. The calvarium is intact. The paranasal sinuses, mastoid air cells, and middle ear cavities are clear. IMPRESSION: No acute intracranial abnormality. ACT 112: Negative or not required by law. The above report was generated using voice recognition software. It may contain grammatical, syntax or spelling errors. Electronically signed by: Mitesh Ramos M.D. 11/13/2024 1:34 PM Lumbar Spine MRI 11/13/24 12:34 MR lumbar spine wo con CLINICAL HISTORY: fever iso previous ir drain. COMPARISON: 10/27/2024 TECHNIQUE: Multiplanar, multi sequence MRI of the lumbar spine was performed without intravenous contrast. FINDINGS: There is motion artifact. Conus medullaris terminates normally at L1. There are diffuse degenerative changes with stable grade 1 anterolisthesis of L4 on 5. Vertebral body compression fracture with severe height loss at L1 is stable. Stable retropulsion of the posterior aspect of the L1 vertebral body. Vertebral body compression fractures at L2 and L3 with moderate height loss are stable. No interval fracture seen. Very small psoas intramuscular hematomas are decreased in size. L1-2: Stable retropulsion of the posterior aspect of the L1 vertebral body. No significant central canal narrowing seen. There is moderate right and mild left neural foraminal narrowing. L2-3: There is a mild disc bulge. No significant central canal or neural foraminal narrowing. L3-4: There is a mild disc bulge with mild ligamentum flavum and facet hypertrophy. No significant central canal narrowing. There is mild right and moderate left neural foraminal narrowing. L4-5: Stable grade 1 anterolisthesis and mild disc bulge. There is facet hypertrophy. There is moderate central canal narrowing. There is moderate right and mild left neural foraminal narrowing. L5-S1: No significant central canal narrowing. There is mild bilateral foraminal narrowing. IMPRESSION: No adverse change seen. ACT 112: Negative or not required by law. The above report was generated using voice recognition software. It may contain grammatical, syntax or spelling errors. Electronically signed by: Joe Rivero M.D. 11/13/2024 1:48 PM Abdomen/Pelvis CT 11/14/24 08:[address] WITH IV CONTRAST CT DOSE: 748.01 mGy.cm HISTORY: concern for worsening abscesses TECHNIQUE: Multiaxial CT images of the abdomen and pelvis were performed following the IV administration of 90 cc of Optiray, A dose lowering technique was utilized adhering to the principles of ALARA. COMPARISON STUDY: 10/07/2024 CT and MRI of the lumbar spine yesterday. FINDINGS: ABDOMEN: Liver, gallbladder, spleen, pancreas, and adrenal glands are unremarkable. Kidneys show no hydronephrosis. Large calcification at the right UPJ is stable. There are scattered atherosclerotic calcifications. No abdominal aortic aneurysm. Pelvis: Uterus is absent. No adnexal mass seen. Urinary bladder is decompressed. There is moderate retained stool. No bowel inflammation or obstruction seen. No free fluid, free air, or abscess. No enlarged adenopathy. Osseous structures: There is osteopenia. Vertebral body compression fractures at L1, L2, and L3 are stable compared to the MRI yesterday. The vertebral body compression fracture at L2 is mildly progressive compared with the [address] Stable degenerative changes. No significant paraspinal soft tissue hematoma or drainable abscess seen. IMPRESSION: No adverse change seen. Otherwise as described. ACT 112: Negative or not required by law. The above report was generated using voice recognition software. It may contain grammatical, syntax or spelling errors. Electronically signed by: Joe Rivero M.D. 11/14/2024 10:32 AM
[2024-11-21] MEDS: CALCIUM CARBONATE 500 MG CHEWABLE TAB PO STA (00:27)
[2024-11-21] MEDS: VANCOMYCIN LEVEL ONE (06:15)
[2024-11-21 06:46] LABS: Hematocrit (blood only) 29.1 % (37.0-47.0); Hemoglobin 9.4 g/dl (12.0-16.0); Immature Granulocytes # (auto) 0.08 K/uL (0.01-0.20); Immature Granulocytes % (auto) 1.5 %; Mean Corpuscular Hemoglobin 33.3 pg (25.0-34.0); Mean Corpuscular Volume 103.2 fL (80.0-100.0); Platelet Count 147 K/uL (130-400); RDW Standard Deviation 65.7 fL (36.4-46.3); Red Blood Count 2.82 M/uL (4.20-5.40); White Blood Count 5.34 K/ul (4.8-10.8)
[2024-11-21 06:55] LABS: Alanine Aminotransferase 8.0 U/L (7-52); Albumin Globulin Ratio 0.9 (0.9-2); Albumin Level 2.9 gm/dl (3.4-5.0); Alkaline Phosphatase 114.0 U/L (34-104); Anion Gap 7.0 (3-11); Bilirubin,Total 0.4 mg/dl (0.2-1.0); Blood Urea Nitrogen 8.0 mg/dl (6-23); Calcium 8.5 mg/dl (8.6-10.3); Carbon Dioxide 27.0 mmol/L (21-32); Chloride 105.0 mmol/L (98-107); Creatinine Clr Calc Pharmacy 93.2 ml/min; Globulin 3.2 gm/dl (2.5-4.0); Glucose 87.0 mg/dl (70-99(Fasting)); Potassium 4.0 mmol/L (3.5-5.1); Sodium 139.0 mmol/L (136-145); Total Protein 6.1 gm/dl (6.0-8.3)
[2024-11-21] MEDS: LORazepam 0.5 MG TAB PO PRN (08:07)
--- NOTE | 2024-11-21 09:14 | Pharmacy Report ---
Pharmacy PK ABX Note - Date of Service November 21, 2024 - Assessment and Plan Assessment 11/21: * Vancomycin level drawn today was 17.5mcg/mL which extrapolates to an AUC in the goal range. She is to continue with the current vancomycin regimen * She remains afebrile and renal function stable at baseline. 11/17: * Vancomycin level drawn today was 16.5mcg/mL which extrapolates to an AUC of 466mg/L.hr which is in the goal range. She is to continue the current vancomycin regimen * Blood cultures x 2 from 11/13 remain no growth to date. 11/14: * Vancomycin level drawn today was 18.7 which extrapolates to an AUC in the goal range. She is to continue current vancomycin regimen. * ID reconsulted this visit and their recommendation is to continue her current antibiotic regimen with anticipated 6 week course total of vancomycin. 11/13: 79 year old F receiving Vancomycin for treatment of bacteremia. * Patient had staph epidermidis bacteremia secondary to bilateral iliopsoas muscle fluid collection s/p IR drainage. Grew staph epi in blood cultures on 10/13/24 at [facility] and first set of negative cultures were 10/15/24. Per Demond ID, patient to be on IV vancomycin for 6-8 weeks (earliest end date would be 11/26/24). * Patient discharged to [facility] for rehab. She was receiving 750 mg of IV vancomycin at their facility (0730,1530,2330). Per RN at [facility], patient received approximately half a bag of vanc at 0730 prior to coming to ED today for fevers. * Febrile here without leukocytosis. Procal is significantly elevated at almost 19. Repeat blood cultures pending. * Random level returned at 10.2 mcg/mL today which is therapeutic. This is concerning for vancomycin failure so patient received Dapto in the ED. ID consult recommended as another agent may be warranted at this time. Plan Vancomycin * Random level this morning was 17.5mcg/mL. This extrapolates to an AUC of 516mg/L.hr * Continue outpatient dose of 750 mg IV every 8 hours * Regimen is predicted to achieve target AUC/ARNOLD of 400-600 mg/L.hr * Another random level will be ordered in the next week or as clinically necessary. Pharmacy will continue to follow and will adjust dose/frequency as necessary. Thank you. Pharmacy has transitioned to AUC monitoring for vancomycin. AUC/ARNOLD is the preferred PK/PD target and is associated with decreased risk of nephrotoxicity compared to traditional trough targets.
--- NOTE | 2024-11-21 10:02 | Hospitalist Progress Note ---
Date of Service November 21, 2024 Assessment & Plan (1) Fever: (2) Altered mental status: (3) Bacteremia: (4) Compression fracture of lumbar vertebra: (5) AML (acute myeloblastic leukemia): (6) Dyslipidemia: (7) HTN (hypertension): (8) Anxiety: (9) Diabetes mellitus type II, controlled: Plan 79 year old female with PMH significant for HTN, HLD, DMII, history of pericardial effusion, PSVT s/p ablation in 2004, GERD with esophagitis, primary osteoarthritis of both knees, persistent insomnia, spinal stenosis of lumbar region, sacroiliitis, AML currently undergoing chemotherapy with decitabine/venetoclax on infectious prophylaxis with acyclovir/voriconazole/Levaquin, and lumbar compression fractures who was recently admitted for bilateral iliopsoas muscle fluid collections and staph epidermidis bacteremia and discharged to [facility] for rehab who presented to the ED on 11/13/2024 with fevers and confusion. Fever History of bilateral iliopsoas muscle fluid collection s/p IR drainage History of staph epidermidis bacteremia At [facility] fever up to 103 reported with associated chills Workup grossly unremarkable: blood cx negative, CXR negative, unremarkable CTAP, lumbar spine unremarkable Afebrile since admission Continue with vancomycin for 6 weeks recommended by ID for staph epidermidis bacteremia-> last day 11/27/2024 Medically ready for discharge back to SNF vs home with pending auth approval Metabolic encephalopathy, resolving Mild cognitive impairment Patient presented with confusion described as forgetful/foggy by her daughter; Head CT negative Suspect mild cognitive impairment due to age, dehydration and polypharmacy as potential drivers of metabolic encephalopathy Lyrica and gabapentin discontinued by previous provider Continue ativan to 0.25mg daily prn for severe anxiety per patient/family request (feels it helps her anxiety prn) Avoid anticholinergics Hypokalemia Hypomagnesemia Replete as needed Monitor labs L1 and L3 compression fractures Continue PT/OT therapy while inpatient Continue pain control with oxycontin and oxycodone PRN per Palliative note from previous admission AML undergoing chemotherapy Chronic blood loss anemia History of pancytopenia Last received chemo in August due to hospitalization/rehab stays Blood counts stable Continue suppressive antibiotics including levaquin, voriconazole, acyclovir Hypertension Continue amlodipine Hyperlipidemia Continue statin Anxiety/depression Continue citalopram and mirtazapine doses from previous admission recommended by psych Type 2 diabetes BSG ACHS and SSI DVT Prophylaxis: SQ Lovenox Code Status: DNR/DNI PCP: [facility] Disposition: medically cleared for dc, awaiting placement, CM following I spent a total of 35 minutes coordinating, documenting and providing care for this patient excluding time spent in the performance of separately billed services or time spent by another provider/QHP. Admission and Anticipated Discharge Date Admission Date: November 13, 2024 Supervising Physician Co-Signing Physician Notes Patient is seen and examined at bedside as a follow-up for fever in the setting of bilateral iliopsoas muscle fluid collection status post IR drainage and staph epidermidis bacteremia. Patient has been afebrile, hemodynamically stable, doing fine. Today morning she feeling better and improvement in nausea. She is awaiting placement. On exam, patient on room air, cardiac/lung/abdomen examination WNL. Rest of the examination as above. Total time spent independently: 12 minutes. I have seen and examined the patient and have discussed the case with the provider above. I agree with the assessment and plan as stated. Subjective Patient seen resting in bed; reports some anxiety this morning Denies headache, dizziness, chest pain, SOB, abdominal pain, vomiting, diarrhea, nausea Review of Systems Review of Systems: All systems reviewed & are unremarkable except as noted in HPI & below Physical Exam Constitutional: WD/WN, vitals as above Eyes: PERRL, conjunctivae normal, anicteric sclerae Neck: trachea midline, no thyromegaly Respiratory: normal respiratory effort, lungs clear to auscultation Cardiovascular: RRR, no murmur, no edema Gastrointestinal (Abdomen): normal bowel sounds, soft, nontender, no hepatosplenomegaly Musculoskeletal: no cyanosis or clubbing, extremities motor strength 5/5 Neurologic: PERRL, EOMI, accommodation nl, no face palsy, no dysarthria Psychiatric: A+Ox3, euthymic affect Lymphatic: no cervical or axillary lymphadenopathy Results & Data Results & Data Vital Signs (Past 12 Hours) Vital Signs Temp Pulse Resp BP Pulse Ox O2 Del Method 11/21/24 07:45 36.6 C 100 H 16 120/68 96 Room Air 11/21/24 06:00 36.3 C L 89 20 155/82 H 95 Room Air 11/20/24 22:58 36.8 C 93 H 16 114/67 95 Room Air Diagnostic Findings Laboratory Results WBC 5.34 K/ul (4.8-10.8) 11/21/24 06:08 RBC 2.82 M/uL (4.20-5.40) L 11/21/24 06:08 Hgb 9.4 g/dl (12.0-16.0) L 11/21/24 06:08 Hct 29.1 % (37.0-47.0) L 11/21/24 06:08 MCV 103.2 fL (80.0-100.0) H 11/21/24 06:08 MCH 33.3 pg (25.0-34.0) 11/21/24 06:08 MCHC 32.3 g/dL (32.0-36.0) 11/21/24 06:08 RDW Std Deviation 65.7 fL (36.4-46.3) H 11/21/24 06:08 RDW Coeff of Patti 17.3 % (11.5-14.5) H 11/21/24 06:08 Plt Count 147 K/uL (130-400) 11/21/24 06:08 MPV 9.9 fL (9.4-12.4) 11/21/24 06:08 Immature Gran % (Auto) 1.5 % 11/21/24 06:08 Neut % (Auto) 53.3 % 11/21/24 06:08 Lymph % (Auto) 32.2 % 11/21/24 06:08 Sharp % (Auto) 9.7 % 11/21/24 06:08 Eos % (Auto) 2.6 % 11/21/24 06:08 Baso % (Auto) 0.7 % 11/21/24 06:08 Neut # (Auto) 2.84 K/uL (1.40-6.50) 11/21/24 06:08 Lymph # (Auto) 1.72 K/uL (1.20-3.40) 11/21/24 06:08 Sharp # (Auto) 0.52 K/uL (0.11-0.59) 11/21/24 06:08 Eos # (Auto) 0.14 K/uL (0.00-0.50) 11/21/24 06:08 Baso # (Auto) 0.04 K/uL (0.00-0.20) 11/21/24 06:08 Immature Gran # (Auto) 0.08 K/uL (0.01-0.20) 11/21/24 06:08 Polychromasia 2+ 11/15/24 04:05 Anisocytosis Present 11/14/24 16:23 Tear Drop Cells 1+ 11/14/24 16:23 Ovalocytes 1+ 11/15/24 04:05 Peripher Smr Path Cons 11/14/24 16:23 ESR 83 mm/hr (0-30) H 11/14/24 06:41 PT 12.1 Seconds (9.0-12.0) H 11/15/24 04:05 INR 1.1 (0.9-1.1) 11/15/24 04:05 Fibrinogen 279 mg/dl (184-400) 11/15/24 04:05 Sodium 139 mmol/L (136-145) 11/21/24 06:08 Potassium 4.0 mmol/L (3.5-5.1) 11/21/24 06:08 Chloride 105 mmol/L (98-107) 11/21/24 06:08 Carbon Dioxide 27 mmol/L (21-32) 11/21/24 06:08 Anion Gap 7 (3-11) 11/21/24 06:08 BUN 8 mg/dl (6-23) 11/21/24 06:08 Creatinine 0.40 mg/dl (0.6-1.2) L 11/21/24 06:08 Est Cr Clr Drug Dosing 93.2 ml/min 11/21/24 06:08 eGFR 101.87 11/21/24 06:08 BUN/Creatinine Ratio 20.0 (10-20) 11/21/24 06:08 Glucose 87 mg/dl (70-99(Fasting)) 11/21/24 06:08 POC Glucose 97 mg/dl (70-99) 11/21/24 07:46 Lactate 2.0 mmol/L (0.4-2.0) 11/13/24 10: Uric Acid 3.2 mg/dl (2.6-7.2) 11/14/24 16:33 Calcium 8.5 mg/dl (8.6-10.3) L 11/21/24 06:08 Phosphorus 1.9 mg/dl (2.5-4.9) L 11/18/24 09:54 Magnesium 1.5 mg/dl (1.7-2.4) L 11/18/24 09:54 Total Bilirubin 0.4 mg/dl (0.2-1.0) 11/21/24 06:08 AST 16 U/L (13-39) 11/21/24 06:08 ALT 8 U/L (7-52) 11/21/24 06:08 Alkaline Phosphatase 114 U/L (34-104) H 11/21/24 06:08 Lactate Dehydrogenase 166 U/L (86-244) 11/14/24 16:33 C-Reactive Protein 3.88 mg/dl (0-0.5) H 11/14/24 06:23 Total Protein 6.1 gm/dl (6.0-8.3) 11/21/24 06:08 Albumin 2.9 gm/dl (3.4-5.0) L 11/21/24 06:08 Globulin 3.2 gm/dl (2.5-4.0) 11/21/24 06:08 Albumin/Globulin Ratio 0.9 (0.9-2) 11/21/24 06:08 Procalcitonin 18.90 ng/ml (0-0.5) H 11/13/24 10:27 TSH 0.570 uIu/ml (0.300-4.500) 11/14/24 06:23 Urine Color Yellow 11/13/24 13:57 Urine Appearance Clear (Clear) 11/13/24 13:57 Urine pH 6.5 (4.5-7.5) 11/13/24 13:57 Ur Specific [place] 1.018 (1.000-1.030) 11/13/24 13:57 Urine Protein Negative (Negative) 11/13/24 13:57 Urine Glucose (UA) Negative (Negative) 11/13/24 13:57 Urine Ketones 1+ (Negative) H 11/13/24 13:57 Urine Blood Negative (Negative) 11/13/24 13:57 Urine Nitrite Negative (Negative) 11/13/24 13:57 Urine Bilirubin Negative (Negative) 11/13/24 13:57 Urine Urobilinogen Negative (Negative) 11/13/24 13:57 Ur Leukocyte Esterase Negative (Negative) 11/13/24 13:57 Urine Comment 11/13/24 13:57 Nasal Screen MRSA (PCR) Negative (Negative) 11/14/24 00:43 Random Vancomycin 17.5 mcg/ml (10-20) 11/21/24 06:08 Adenovirus (PCR) Not Detected (NotDetected) 11/13/24 12:44 B. pertussis DNA (PCR) Not Detected (NotDetected) 11/13/24 12:44 B.parapertussis DNA PCR Not Detected (NotDetected) 11/13/24 12:44 C. pneumoniae DNA (PCR) Not Detected (NotDetected) 11/13/24 12:44 Coronavirus OC43 (PCR) Not Detected (NotDetected) 11/13/24 12:44 Coronavirus HKU1 (PCR) Not Detected (NotDetected) 11/13/24 12:44 Coronavirus 229E (PCR) Not Detected (NotDetected) 11/13/24 12:44 SARS-CoV-2 (PCR) Not Detected (NotDetected) 11/13/24 12:44 Coronavirus NL63 (PCR) Not Detected (NotDetected) 11/13/24 12:44 Human Metapneumovir PCR Not Detected (NotDetected) 11/13/24 12:44 Influenza Type A (PCR) Not Detected (NotDetected) 11/13/24 12:44 Influenza Type B (PCR) Not Detected (NotDetected) 11/13/24 12:44 M. pneumoniae (PCR) Not Detected (NotDetected) 11/13/24 12:44 Parainfluenza 1 (PCR) Not Detected (NotDetected) 11/13/24 12:44 Parainfluenza 2 (PCR) Not Detected (NotDetected) 11/13/24 12:44 Parainfluenza 3 (PCR) Not Detected (NotDetected) 11/13/24 12:44 Parainfluenza 4 (PCR) Not Detected (NotDetected) 11/13/24 12:44 RSV (PCR) Not Detected (NotDetected) 11/13/24 12:44 Entero/Rhino (PCR) Not Detected (NotDetected) 11/13/24 12:44 Impressions Chest X-Ray 11/13/24 10:09 XR chest 1V portable CLINICAL HISTORY: fever COMPARISON STUDY: 10/07/2024 FINDINGS: Right PICC line tip is at the SVC. Heart size and pulmonary vasculature are normal. No consolidation or pleural effusion seen. No pneumothorax IMPRESSION: No pneumonia seen. ACT 112: Negative or not required by law. Electronically signed by: Joe Rivero M.D. 11/13/2024 11:[address] 11/13/24 12:33 CT head/brain wo con CLINICAL HISTORY: 79 years-old Female with confusion. Acutely altered mental status TECHNIQUE: Multiple axial CT images of the head were obtained without contrast. A dose lowering technique was utilized adhering to the principles of ALARA. CT DOSE: 625.8 mGy.cm COMPARISON: None. FINDINGS: No acute intracranial hemorrhage, midline shift, intracranial mass, hydrocephalus, territorial ischemia or abnormal extra-axial collection. Involutional changes with white matter hypodensities suggestive of chronic microvascular ischemic disease. The calvarium is intact. The paranasal sinuses, mastoid air cells, and middle ear cavities are clear. IMPRESSION: No acute intracranial abnormality. ACT 112: Negative or not required by law. The above report was generated using voice recognition software. It may contain grammatical, syntax or spelling errors. Electronically signed by: Mitesh Ramos M.D. 11/13/2024 1:34 PM Lumbar Spine MRI 11/13/24 12:34 MR lumbar spine wo con CLINICAL HISTORY: fever iso previous ir drain. COMPARISON: 10/27/2024 TECHNIQUE: Multiplanar, multi sequence MRI of the lumbar spine was performed without intravenous contrast. FINDINGS: There is motion artifact. Conus medullaris terminates normally at L1. There are diffuse degenerative changes with stable grade 1 anterolisthesis of L4 on 5. Vertebral body compression fracture with severe height loss at L1 is stable. Stable retropulsion of the posterior aspect of the L1 vertebral body. Vertebral body compression fractures at L2 and L3 with moderate height loss are stable. No interval fracture seen. Very small psoas intramuscular hematomas are decreased in size. L1-2: Stable retropulsion of the posterior aspect of the L1 vertebral body. No significant central canal narrowing seen. There is moderate right and mild left neural foraminal narrowing. L2-3: There is a mild disc bulge. No significant central canal or neural foraminal narrowing. L3-4: There is a mild disc bulge with mild ligamentum flavum and facet hypertrop hy. No significant central canal narrowing. There is mild right and moderate left neural foraminal narrowing. L4-5: Stable grade 1 anterolisthesis and mild disc bulge. There is facet hypertrophy. There is moderate central canal narrowing. There is moderate right and mild left neural foraminal narrowing. L5-S1: No significant central canal narrowing. There is mild bilateral foraminal narrowing. IMPRESSION: No adverse change seen. ACT 112: Negative or not required by law. The above report was generated using voice recognition software. It may contain grammatical, syntax or spelling errors. Electronically signed by: Joe Rivero M.D. 11/13/2024 1:48 PM Abdomen/Pelvis CT 11/14/24 08:[address] WITH IV CONTRAST CT DOSE: 748.01 mGy.cm HISTORY: concern for worsening abscesses TECHNIQUE: Multiaxial CT images of the abdomen and pelvis were performed following the IV administration of 90 cc of Optiray, A dose lowering technique was utilized adhering to the principles of ALARA. COMPARISON STUDY: 10/07/2024 CT and MRI of the lumbar spine yesterday. FINDINGS: ABDOMEN: Liver, gallbladder, spleen, pancreas, and adrenal glands are unremarkable. Kidneys show no hydronephrosis. Large calcification at the right UPJ is stable. There are scattered atherosclerotic calcifications. No abdominal aortic aneurysm. Pelvis: Uterus is absent. No adnexal mass seen. Urinary bladder is decompressed. There is moderate retained stool. No bowel inflammation or obstruction seen. No free fluid, free air, or abscess. No enlarged adenopathy. Osseous structures: There is osteopenia. Vertebral body compression fractures at L1, L2, and L3 are stable compared to the MRI yesterday. The vertebral body compression fracture at L2 is mildly progressive compared with the [address] Stable degenerative changes. No significant paraspinal soft tissue hematoma or drainable abscess seen. IMPRESSION: No adverse change seen. Otherwise as described. ACT 112: Negative or not required by law. The above report was generated using voice recognition software. It may contain grammatical, syntax or spelling errors. Electronically signed by: Joe Rivero M.D. 11/14/2024 10:32 AM
[2024-11-21] MEDS ORDERED: CALCIUM CARBONATE 500 MG CHEWABLE TAB PO PRN (10:51)
--- NOTE | 2024-11-21 15:12 | Discharge Summary ---
Discharge Summary Date of Service November 21, 2024 Principal Dx & Hospital Course #1 = Principal Diagnosis (1) Fever: (2) Altered mental status: (3) Bacteremia: (4) Compression fracture of lumbar vertebra: (5) AML (acute myeloblastic leukemia): (6) Dyslipidemia: (7) HTN (hypertension): (8) Anxiety: (9) Diabetes mellitus type II, controlled: Plan 79 year old female with PMH significant for HTN, HLD, DMII, history of peric ardial effusion, PSVT s/p ablation in 2004, GERD with esophagitis, primary osteoarthritis of both knees, persistent insomnia, spinal stenosis of lumbar region, sacroiliitis, AML currently undergoing chemotherapy with decitabine/venetoclax on infectious prophylaxis with acyclovir/voriconazole/Levaquin, and lumbar compression fractures who was recently admitted for bilateral iliopsoas muscle fluid collections and staph epidermidis bacteremia and discharged to [facility] for rehab who presented to the ED on 11/13/2024 with fevers and confusion. Please see below for management of acute and chronic health issues throughout this patient's hospitalization: Fever History of bilateral iliopsoas muscle fluid collection s/p IR drainage History of staph epidermidis bacteremia At [facility] fever up to 103 reported with associated chills Workup grossly unremarkable: blood cx negative, CXR negative, unremarkable CTAP, lumbar spine unremarkable Afebrile since admission Continue with vancomycin for 6 weeks recommended by ID for staph epidermidis bacteremia-> last day 11/27/2024 Medically ready for discharge back to SNF vs home with HH pending auth approval Metabolic encephalopathy, resolving Mild cognitive impairment Patient presented with confusion described as forgetful/foggy by her daughter; Head CT negative Suspect mild cognitive impairment due to age, dehydration and polypharmacy as potential drivers of metabolic encephalopathy Lyrica and gabapentin discontinued by previous provider Continue ativan to 0.25mg daily prn for severe anxiety per patient/family request (feels it helps her anxiety prn) Avoid anticholinergics Hypokalemia Hypomagnesemia Replete as needed Monitor labs L1 and L3 compression fractures Continue PT/OT therapy while inpatient Continue pain control with oxycontin and oxycodone PRN per Palliative note from previous admission AML undergoing chemotherapy Chronic blood loss anemia History of pancytopenia Last received chemo in August due to hospitalization/rehab stays Blood counts stable Continue suppressive antibiotics including levaquin, voriconazole, acyclovir Hypertension Continue amlodipine Hyperlipidemia Continue statin Anxiety/depression Continue citalopram and mirtazapine doses from previous admission recommended by psych Type 2 diabetes BSG ACHS and SSI The patient's labs/vitals are stable. She stable for discharge to rehab today. She will need to follow-up with her PCP within 1 week of discharge. She should continue her vancomycin dose until 11/27/2024 for recent bacteremia. Notes For Next Care Provider Medication Changes From Visit n/a Admission HPI Per Admitting Provider 79 year old female with PMH significant for HTN, HLD, DMII, history of pericardial effusion, PSVT s/p ablation in 2004, GERD with esophagitis, primary osteoarthritis of both knees, persistent insomnia, spinal stenosis of lumbar region, sacroiliitis, AML currently undergoing chemotherapy with decitabine/venetoclax on infectious prophylaxis with acyclov ir/voriconazole/Levaquin, and lumbar compression fractures who was recently admitted for bilateral iliopsoas muscle fluid collections and staph epidermidis bacteremia and discharged to [facility] for rehab who presents to the ED on 11/13/2024 with fevers and confusion. History obtained from patient and her daughter, Vesna, who was present at bedside. Patient reports she developed a fever of 98 yesterday with associated body aches, weakness, poor appetite, and nausea. She was given tylenol but had another fever this morning and was told by the staff at [facility] that she should be evaluated. She reports one day of slightly worse back pain but overall reports that she was doing really well at rehab with therapy until yesterday when she felt generally unwell. Vesna expresses concern about the patient's mental status where she feels that she is forgetful/foggy, however, notes that this has been the case since she before she was discharged to [facility] last week. Vesna is concerned that this could be related to some of the medications that were started during previous admission, particularly lyrica. Vesna also reports that patient has been unable to urinate since arriving to the ED, and believes that she was urinating without difficultly at [facility]. Patient denies headache, dizziness, chest pain, SOB, abdominal pain, vomiting, constipation, diarrhea, dysuria, hematuria. Discharge Exam Constitutional WD/WN, vitals as above Eyes PERRL, conjunctivae normal, anicteric sclerae Neck trachea midline, no thyromegaly Respiratory normal respiratory effort, lungs clear to auscultation Cardiovascular RRR, no murmur, no edema Gastrointestinal (Abdomen) normal bowel sounds, soft, nontender, no hepatosplenomegaly Musculoskeletal no cyanosis or clubbing, extremities motor strength 5/5 Neurologic PERRL, EOMI, accommodation nl, no face palsy, no dysarthria Psychiatric A+Ox3, euthymic affect Lymphatic no cervical or axillary lymphadenopathy Updated Medication List Medication Instructions Recorded Confirmed Type decitabine 50 mg intravenous 0 mg IV MONTHLY 09/10/24 11/13/24 History solution L.acidop,casei,lactis,rham-B.lact,liz 1 cap PO DAILY #30 caps 11/05/24 11/13/24 Rx 625 mg (10 billion cell) capsule (Advanced Probiotic) acetaminophen 500 mg tablet 1,000 mg (2 x 500 mg) PO Q8H #300 11/05/24 11/13/24 Rx (Tylenol Extra Strength) tabs acyclovir 400 mg tablet 400 mg PO BID #60 tabs 11/05/24 11/13/24 Rx amlodipine 10 mg tablet 5 mg (1/2 x 10 mg) PO QAM #30 tabs 11/05/24 11/13/24 Rx atorvastatin 20 mg tablet 20 mg PO HS #30 tabs 11/05/24 11/13/24 Rx citalopram 10 mg tablet 20 mg (2 x 10 mg) PO QAM #60 tabs 11/05/24 11/13/24 Rx cyanocobalamin (vitamin B-12) 500 1,000 mcg (2 x 500 mcg) PO QAM #30 11/05/24 11/13/24 Rx mcg tablet tabs enoxaparin 40 mg/0.4 mL 40 mg (0.4 mL) subcut Q24H #30 mL 11/05/24 11/13/24 Rx subcutaneous syringe (Lovenox) lidocaine 5 % topical patch 1 patch transdermal QAM #30 ea 11/05/24 11/13/24 Rx melatonin 5 mg tablet 5 mg PO HS PRN Insomnia #10 tabs 11/05/24 11/13/24 Rx mirtazapine 15 mg tablet 7.5 mg (1/2 x 15 mg) PO HS #15 tabs 11/05/24 11/13/24 Rx ondansetron HCl 4 mg tablet 4 mg PO Q6H PRN Nausea And 11/05/24 11/13/24 Rx Vomiting #30 tabs polyethylene glycol 3350 17 gram 17 g PO DAILY #30 ea 11/05/24 11/13/24 Rx oral powder packet (Miralax) potassium chloride 20 mEq 20 meq PO DAILY #30 tabs 11/05/24 11/13/24 Rx tablet,extended release(part/cryst) sennosides 8.6 mg-docusate sodium 1 tab PO BID #60 tabs 11/05/24 11/13/24 Rx 50 mg tablet (Senokot-S) vancomycin 750 mg intravenous 750 mg IV Q8H #10 ea 11/05/24 11/13/24 Rx solution voriconazole 200 mg tablet 200 mg PO Q12 #60 tabs 11/05/24 11/13/24 Rx gabapentin 100 mg capsule 300 mg PO HS 11/13/24 11/13/24 History lorazepam 0.5 mg tablet 0.25 mg (1/2 x 0.5 mg) PO DAILY 11/21/24 Rx PRN anxiety #6 tabs oxycodone 15 mg tablet,crush 15 mg PO Q12 #6 tabs 11/21/24 Rx resistant,extended release 12 hr (OxyContin) Hospital Stay Data Consultations 11/13/24 11:41 ED Decision to Admit Stat 11/14/24 08:29 Consult Infectious Diseases Routine Diagnostic Imagining Performed 11/13/24 12:[address] [CT head/brain wo con] Urgent 11/13/24 12:34 MRI Lumbar Spine [MR lumbar spine wo con] Urgent 11/14/24 08:25 CT abd pelvis IV con only Urgent Pending Results Patient Have Any Pending Studies at Discharge: No Discharge Instructions Given to Patient (Per Discharging Provider) Please follow with your PCP within 1 week of discharge. Please continue IV vancomycin as recommended by ID for staph epidermis bacteremia until 11/27/2024 Your infectious workup this hospitalization was negative You may continue all of your home medications Return back to the ED with worsening symptoms Total Time Total Time Spent Total Time Spent (In Minutes): 45 Supervising Physician Co-Signing Physician Notes Patient is seen and examined at bedside as a follow-up for fever in the setting of bilateral iliopsoas muscle fluid collection status post IR drainage and staph epidermidis bacteremia. Patient has been afebrile, hemodynamically stable, doing fine. Today morning she feeling better and improvement in nausea. She is awaiting placement. On exam, patient on room air, cardiac/lung/abdomen examination WNL. Rest of the examination as above. Total time spent independently: 12 minutes. I have seen and examined the patient and have discussed the case with the provider above. I agree with the assessment and plan as stated.
[2024-11-21 16:02] VITALS: RESP 17; TEMP 99; O2SAT 92
[2024-11-21 17:39] VITALS: BP 121/72; PULSE 76
[2024-11-21] MEDS ORDERED: ONDANSETRON 4 MG OD TAB PO PRN (18:02)
[2024-11-21] MEDS: ONDANSETRON 4 MG OD TAB ONE (18:08)
[2024-11-22] MEDS ORDERED: FAMOTIDINE 20 MG TAB PO SCH (09:00)
--- NOTE | 2024-11-23 19:43 | Coding Query ---
CODING QUERY To promote full compliance with coding requirements relating to patient care, provider participation is requested in all cases of antisubmarine weapons officer uncertainty. Please assist us with the question(s) below: Coding Question(s): Pt admitted with Fever and confusion. Adm from [facility] ; Per Infection Control pt with psoas muscle abscess and osteomyelitis of lumbar vertebra. Please document, if known or suspected, the etiology of the fever. Thanks for your help! Ferny Thomas [employer] [facility] Physician's Response(s): unknown. Principal Diagnosis: "that condition established after study, to be chiefly responsible for occasioning the admission of the patient to the hospital for care." Co-Existing Principal Diagnosis: "when two or more diagnoses equally meet the criteria for principal diagnosis as determined by the circumstances of admission, diagnostic work up, and/or therapy provided, and the Alphabetic Index, Tabular List, or another coding guideline does not provide sequencing direction, any one of the diagnoses may be sequenced first." "When the physician has documented what appears to be a current diagnosis in the body of the record, but has not included the diagnosis in the final diagnostic statement, the physician should be asked whether the diagnosis should be added." (Source Coding [facility] 2 QTR90. p3-4) RUBY
== END 2024-11-21 18:16 | DRG 71 ==
LOC: ED 09:55 → SUATTDRO 12:59 → EDINP 12:59 → 3E 15:17

== ENCOUNTER 2025-01-27 20:08 | Observation (INO) ==
--- NOTE | 2025-01-27 20:55 | Emergency Department Note ---
History of Present Illness General Chief complaint: Fall Stated complaint: MULTIPLE FALLS, BACK PAIN Time Seen by Provider: 01/27/25 20:24 Source: patient and family Mode of arrival: EMS Limitations: no limitations History of Present Illness Patient is a 79-year-old female with history of multiple comorbidities who presents for evaluation of multiple falls over the past few days. She had a fall tonight. Her daughter came in and found her on the floor. She states that she was using her walker and when she was turning she became weak and fell to the ground. She did not hit her head. Denies any neck pain. She was unable to get up due to weakness in her legs and back pain. She has history of chronic back pain due to multiple compression fractures in the past. Denies any numbness to the groin. No numbness to the lower extremities. Denies any bowel or bladder incontinence. Her daughter notes that she has been very weak over the past few days and has had difficulty working with physical therapy at home. No reported fevers, chills, headache, neck stiffness, chest pain, cough, shortness of breath, nausea, vomiting, abdominal pain. Home Medications Medication Instructions Recorded Confirmed Type Lactobacillus acidophilus and 1 cap PO BID 12/13/24 12/13/24 History rhamnosus 15 billion cell capsule (Probiotic) Miralax 1 dose PO DAILY 12/13/24 12/13/24 History acetaminophen 500 mg tablet 1,000 mg PO TID 12/13/24 12/13/24 History acyclovir 400 mg tablet 400 mg PO BID 12/13/24 12/13/24 History amlodipine 5 mg tablet 5 mg PO DAILY 12/13/24 12/13/24 History atorvastatin 20 mg tablet 20 mg PO HS 12/13/24 12/13/24 History cyanocobalamin (vitamin B-12) 1,000 mcg PO DAILY 12/13/24 12/13/24 History 1,000 mcg tablet famotidine 20 mg tablet 20 mg PO BID 12/13/24 12/13/24 History lidocaine 5 % topical patch 1 patch topical DAILY 12/13/24 12/13/24 History melatonin 5 mg tablet 5 mg PO HS PRN Insomnia 12/13/24 12/13/24 History potassium chloride 20 mEq 20 meq PO DAILY 12/13/24 12/13/24 History tablet,extended release sennosides 8.6 mg-docusate sodium 2 tab-cap PO BID 12/13/24 12/13/24 History 50 mg tablet (Senokot-S) voriconazole 200 mg tablet 200 mg PO Q12H 12/13/24 12/13/24 History mirtazapine 30 mg tablet 30 mg PO HS #30 tabs 01/09/25 Rx sertraline 25 mg tablet 25 mg PO DAILY #30 tabs 01/09/25 Rx Allergies Allergy/AdvReac Type Severity Reaction Status Date / Time No Known Allergies Allergy Mild Verified 09/17/24 11:27 Past Med/Surg History Problem List (Updated 01/27/25 @ 23:36 by Valeriy Dickey MD) Compression fx, thoracic spine (Acute) Compression fracture of lumbar vertebra (Acute) Major depressive disorder with single episode Right renal stone AMS (altered mental status) Low bicarbonate (Acute) Elevated lactic acid level (Acute) Diarrhea (Acute) Sepsis (Acute) Advanced care planning/counseling discussion Palliative care by specialist Weakness generalized Cancer related pain Generalized anxiety disorder Poor appetite Anxiety and depression Staphylococcus epidermidis bacteremia Bacteremia Severe back pain Compression fracture of L3 vertebra Neutropenia (Acute) Compression fracture of lumbar vertebra (Acute) Back pain (Acute) Physical deconditioning Anxiety Diabetes mellitus, type II Pancytopenia (Acute) Biceps tendinitis of right shoulder Lumbar spondylosis 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, left Medical History Compression fracture of L1 vertebra Pericardial effusion History of - 02/2024- evaluated by [facility]- felt related to AML and/or chemo treatments- repeat ECHOs showed improvement (most recent ECHO 05/2024) Lumbar spondylosis Biceps tendinitis of right shoulder Anxiety HTN (hypertension) Diabetes mellitus type II, controlled no meds most recent Hgb A1C 12/2024 was 7.5 History of cellulitis 12/2023 per records Hx of acute respiratory failure (01/2024) had been at [facility], transferred to [facility]- resolved 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 oliver- gets chemo 1 week every month unless wbc is off, last chemo was week of august 31. has blood drawn weekly at [facility] SVT (supraventricular tachycardia) (2004) History of SVT- s/p 2004- no issues since. Sciatica Elevated cholesterol Controlled with statin Surgical History Port-A-Cath in place (10/14/24) Removal of A-port(Left) - Randall Treviño DO History of insertion of tunneled central venous catheter (CVC) with port (01/2024) right side armstrong cath placed in [place] History of left knee replacement (2019) History of bone marrow biopsy (07/17/24) x3- [facility] and [facility] S/P epidural steroid injection sciatica History of appendectomy (1967) H/O cardiac radiofrequency ablation (2004) 2004 H/O: hysterectomy (1989) [facility] with BSO Family History Father Cancer Other Coronary heart disease Diabetes Leukemia No family history of adverse response to anesthesia Social History (Updated 12/29/24 @ 09:07 by Mitesh Graham MA) Smoking Status: Never smoker Second Hand Exposure: No; Do You Dip or Chew Tobacco: No; Hx Alcohol Use: No Hx Substance Use: No Preferred Language: Peruvian Communication Ability: Impaired Visual Impairment: No Limitations Safety Relief Valve Technician Required: No Beliefs That Will Affect Care: Denominational marital status: Current Living Situation: Long-Term Current Living Situation Comment: previously lived w/daughter & grandson Feels Safe at Home: Yes Assistive Devices: Cane Review of Systems Review of systems negative outside of positive findings mentioned in HPI. Physical Exam Vital Signs Vital Signs - 24 hr 01/27/25 20:14 01/27/25 20:20 01/27/25 20:54 Temperature 36.8 C Temperature Source Oral Pulse Rate 100 H 106 H 104 H Pulse Rate [Apical] Respiratory Rate 22 12 Respiratory Effort / Characteristics Non-Labored Spontaneous Respiratory Depth Normal Respiratory Pattern Regular Blood Pressure 133/82 Blood Pressure [Left Arm] Blood Pressure Mean 99 Blood Pressure Mean [Left Arm] Blood Pressure Position Sitting Blood Pressure Position [Left Arm] Pulse Oximetry 99 98 Oxygen Delivery Method Room Air Room Air Sepsis Recent Fever Within 48 Hours No Sepsis New/Unexplained Change in Mental Status N/A Sepsis Action Taken by Nursing No Action Required 01/27/25 21:57 01/27/25 22:50 Temperature Temperature Source Pulse Rate Pulse Rate [Apical] 97 H 99 H Respiratory Rate 30 H 24 Respiratory Effort / Characteristics Non-Labored Spontaneous Non-Labored Spontaneous Respiratory Depth Normal Respiratory Pattern Regular Blood Pressure Blood Pressure [Left Arm] 129/72 126/73 Blood Pressure Mean Blood Pressure Mean [Left Arm] 91 90 Blood Pressure Position Blood Pressure Position [Left Arm] Sitting Lying Pulse Oximetry 95 94 Oxygen Delivery Method Room Air Room Air Sepsis Recent Fever Within 48 Hours Sepsis New/Unexplained Change in Mental Status Sepsis Action Taken by Nursing See below Constitutional WD/WN, vitals as above Eyes PERRL, conjunctivae normal, anicteric sclerae ENMT external ear and nose normal, oropharynx normal Neck trachea midline, no thyromegaly Respiratory normal respiratory effort, lungs clear to auscultation Cardiovascular Rate/Rhythm: + tachycardic Heart Sounds: normal S1 and normal S2 Extremities: + pedal edema; no calf tenderness and no edema Gastrointestinal (Abdomen) normal bowel sounds, soft, nontender, no hepatosplenomegaly Musculoskeletal no cyanosis or clubbing, extremities motor strength 5/5 Spine: + lumbar spinal tenderness and + buttock tenderness; no pain with cervical ROM, no cervical spinal tenderness, no thoracic spinal tenderness and no buttock ecchymosis Skin Punctate sacral ulcer without surrounding induration Neurologic Lumbar exam: L1: No sensation deficit in the groin and iliac crest L2: Hip flexion and adduction intact L3: Knee extension intact b/l L4: Dorsiflexion intact b/l L5: Toe dorsiflexion intact b/l S1: Foot plantar flexion intact b/l S2: Toe plantar flexion intact Medical Decision Making Differential Diagnosis DDx includes but not limited to: Lumbar fracture, spinal stenosis, lumbar radiculopathy, thoracic compression fractures, ligamentous injury Medical Records Attestation: I reviewed the patient's medical records. Home Medications Current Medication List: was personally reviewed by me Laboratory Data Attestation: I reviewed the patient's lab results. 01/27/25 20:54 01/27/25 20:54 Lab Results 01/27/25 01/27/25 Range/Units 20:54 21:21 WBC 5.21 (4.8-10.8) K/ul RBC 2.87 L (4.20-5.40) M/uL Hgb 10.5 L (12.0-16.0) g/dL Hct 31.5 L (37.0-47.0) % MCV 109.8 H (80.0-100.0) fL MCH 36.6 H (25.0-34.0) pg MCHC 33.3 (32.0-36.0) g/dL RDW Std Deviation 64.3 H (36.4-46.3) fL RDW Coeff of Patti 16.2 H (11.5-14.5) % Plt Count 197 (130-400) K/uL MPV 9.8 (9.4-12.4) fL Immature Gran % (Auto) 0.6 % Neut % (Auto) 61.0 % Lymph % (Auto) 28.0 % [place] % (Auto) 10.0 % Eos % (Auto) 0.0 % Baso % (Auto) 0.4 % Neut # (Auto) 3.18 (1.40-6.50) K/uL Lymph # (Auto) 1.46 (1.20-3.40) K/uL [place] # (Auto) 0.52 (0.11-0.59) K/uL Eos # (Auto) 0.00 (0.00-0.50) K/uL Baso # (Auto) 0.02 (0.00-0.20) K/uL Immature Gran # (Auto) 0.03 (0.01-0.20) K/uL Sodium 137 (136-145) mmol/L Potassium 3.7 (3.5-5.1) mmol/L Chloride 100 (98-107) mmol/L Carbon Dioxide 26 (21-32) mmol/L Anion Gap 11 (3-11) BUN 15 (6-23) mg/dl Creatinine 0.47 L (0.6-1.2) mg/dl Est Cr Clr Drug Dosing 79.3 ml/min eGFR 97.99 BUN/Creatinine Ratio 31.9 H (10-20) Glucose 177 H (70-99(Fasting)) mg/dl Calcium 8.5 L (8.6-10.3) mg/dl Total Bilirubin 0.4 (0.2-1.0) mg/dl AST 36 (13-39) U/L ALT 12 (7-52) U/L Alkaline Phosphatase 147 H (34-104) U/L Troponin I High Sens 8.6 (0-14) pg/ml Total Protein 6.4 (6.0-8.3) gm/dl Albumin 3.0 L (3.4-5.0) gm/dl Globulin 3.4 (2.5-4.0) gm/dl Albumin/Globulin Ratio 0.9 (0.9-2) TSH 2.058 (0.300-4.500) uIu/ml Urine Color Yellow Urine Appearance Cloudy A (Clear) Urine pH 6.0 (4.5-7.5) Ur Specific [place] 1.017 (1.000-1.030) Urine Protein 1+ H (Negative) Urine Glucose (UA) Negative (Negative) Urine Ketones Negative (Negative) Urine Blood 3+ H (Negative) Urine Nitrite Negative (Negative) Urine Bilirubin Negative (Negative) Urine Urobilinogen Negative (Negative) Ur Leukocyte Esterase 2+ H (Negative) Urine WBC (Auto) >50 H (0-5) /hpf Urine RBC (Auto) >20 H (0-2) /hpf U Hyaline Cast (Auto) 11-20 H (0-2) /lpf U Epithel Cells (Auto) >20 H (0-2) /hpf Urine Bacteria (Auto) 3+ H (None Seen) Calcium Oxalate Crystal Present A (None Prsent) Hyaline Casts Present A (None Presnt) /lpf Urine Mucus Present A (None Prsent) Urine Comment Imaging Data Radiologist's Impression: Chest X-Ray 01/27/25 20:48 Exam(s): XR CXR 1 VIEW EXAM: XR Chest, 1 View CLINICAL HISTORY: Reason for exam: weakness. TECHNIQUE: Frontal view of the chest. COMPARISON: No relevant prior studies available. FINDINGS: Lungs: Unremarkable. No consolidation. Pleural space: Unremarkable. No pneumothorax. Heart: Unremarkable. No cardiomegaly. Mediastinum: Unremarkable. Normal mediastinal contour. Bones/joints: Unremarkable. No acute fracture. IMPRESSION: Normal chest x-ray. Electronically signed by: Randy Brown MD 01/27/25 22:[address] 01/27/25 20:48 Exam(s): CT L SPINE EXAM: CT Lumbar Spine Without Intravenous Contrast CLINICAL HISTORY: Reason for exam: Fall back pain. TECHNIQUE: Axial computed tomography images of the lumbar spine without intravenous contrast. CTDI is 26.66 mGy and DLP is 1222.1 mGy-cm. Automated exposure control was utilized for the study. A dose lowering technique was utilized adhering to the principles of ALARA. COMPARISON: 10/07/2024 FINDINGS: Vertebrae: Interval worsening L1 vertebral body compression fracture. With now results in 99% vertebral body height loss with stable retropulsion of a fracture fragments of the spinal canal. New fracture involving the superior endplate of L4 resulting in 2% vertebral body height loss. Persistent chronic L3 compression fracture resulting in 20% vertebral body height loss. Interval development of a L2 central superior endplate Schmorl's node. Degenerative changes of the lumbar spine with moderate bilateral neural foraminal stenosis at Narrowing at L4-5 and L5-S1 due to a degenerative disc bulge and bony hypertrophy. Discs/spinal canal/neural foramina: See above. Soft tissues: Large right renal pelvis calculus measuring 2.7 cm. This is unchanged from prior exam.. IMPRESSION: New fracture involving the superior endplate of L4 resulting in 2% vertebral body height loss. . Interval development of a L2 central superior endplate acute fracture Electronically signed by: Randy Brown MD 01/27/25 22:[address] 01/27/25 20:48 Exam(s): CT T SPINE EXAM: CT Thoracic Spine Without Intravenous Contrast CLINICAL HISTORY: Reason for exam: Fall/ back pain. TECHNIQUE: Axial computed tomography images of the thoracic spine without intravenous contrast. CTDI is 26.66 mGy and DLP is 1222.1 mGy-cm. Automated exposure control was utilized for the study. A dose lowering technique was utilized adhering to the principles of ALARA. COMPARISON: No relevant prior studies available. FINDINGS: Vertebrae: Acute T12 and T11 vertebral body compression fracture resulting in 50% vertebral body height loss. Discs/spinal canal/neural foramina: No acute findings. No spinal canal stenosis. Soft tissues: Unremarkable. IMPRESSION: Acute T11 and T12 vertebral body compression fractures Electronically signed by: Randy Brown MD 01/27/25 23:22 PM ECG Data Attestation: I personally reviewed and interpreted this ECG as follows: Indication: + weakness Rate (beats per minute): 96 Rhythm: + sinus rhythm ECG Intervals/blocks: + Right Bundle branch block, + Prolonged QT and + Normal TN ECG [place]: + Normal ECG ST segments: + Nonspecific ST abnormalities Comparison ECG Date: from (12/23/2024) Change: the following changes noted (Ventricular rate increased from prior ) MDM Narrative Patient is a 79-year-old female presents after multiple falls with acute on chronic back pain. High-sensitivity neuroexam of the lumbar spine is not concerning for cord involvement. CT imaging of the thoracic and lumbar spine shows interval progression of L1 as well as new endplate fractures of L2 and L4. Also noted to have acute fractures of T11 and T12. Discussed the case with the Ortho PA who is on-call and recommends MRI and will consult on the patient. Patient to be admitted to hospitalist service for PT OT eval and possible preop clearance. UA obtained. Consistent with contaminated specimen. Urine cultures pending however without any other infectious signs there is no indication for antibiotics at this time. Stable for admission to [facility] hospitalist service. Impression & Plan Compression fracture of lumbar vertebra, Compression fx, thoracic spine Discharge Plan Visit Data Chief Complaint: Fall Stated Complaint: MULTIPLE FALLS, BACK PAIN ED Provider: Valeriy Dickey Discharge Problem: Compression fracture of lumbar vertebra, Compression fx, thoracic spine Patient Disposition: Admitted As Inpatient Condition: Good Forms Stand Alone Forms: My [facility] Prescriptions Prescriptions: No Action atorvastatin 20 mg Tablet 20 mg PO HS sennosides-docusate sodium [Senokot-S] 8.6-50 mg Tablet 2 tab-cap PO BID cyanocobalamin (vitamin B-12) 1,000 mcg Tablet 1,000 mcg PO DAILY amlodipine 5 mg Tablet 5 mg PO DAILY acyclovir 400 mg Tablet 400 mg PO BID acetaminophen 500 mg Tablet 1,000 mg PO TID famotidine 20 mg Tablet 20 mg PO BID lidocaine 5 % Adhesive Patch,Medicated 1 patch TOPICAL DAILY Rx Instructions: leave on most painful area for up to 12 hrs voriconazole 200 mg Tablet 200 mg PO Q12H Rx Instructions: administer on empty stomach, at least 1 hour before or after meal(s) potassium chloride 20 mEq Tablet Extended Release 20 meq PO DAILY Probiotic 15 billion cell Capsule 1 cap PO BID Miralax 17 Gram 1 dose PO DAILY melatonin 5 mg Tablet 5 mg PO HS PRN (Reason: Insomnia) sertraline 25 mg tablet 25 mg PO DAILY Qty: 30 0RF mirtazapine 30 mg tablet 30 mg PO HS Qty: 30 0RF Referrals Referrals: Wes Brandon MD [Outside Practitioners] -
[2025-01-27 21:51] LABS: Hematocrit (blood only) 31.5 % (37.0-47.0); Hemoglobin 10.5 g/dL (12.0-16.0); Immature Granulocytes # (auto) 0.03 K/uL (0.01-0.20); Immature Granulocytes % (auto) 0.6 %; Mean Corpuscular Hemoglobin 36.6 pg (25.0-34.0); Mean Corpuscular Volume 109.8 fL (80.0-100.0); Platelet Count 197 K/uL (130-400); RDW Standard Deviation 64.3 fL (36.4-46.3); Red Blood Count 2.87 M/uL (4.20-5.40); White Blood Count 5.21 K/ul (4.8-10.8)
[2025-01-27 21:57] LABS: Appearance Urine Cloudy (Clear); Glucose Urine UA Negative (Negative); RBC Urine Automated >20 /hpf (0-2); WBC Urine Automated >50 /hpf (0-5)
[2025-01-27 22:01] LABS: Alanine Aminotransferase 12.0 U/L (7-52); Albumin Globulin Ratio 0.9 (0.9-2); Albumin Level 3.0 gm/dl (3.4-5.0); Alkaline Phosphatase 147.0 U/L (34-104); Anion Gap 11.0 (3-11); Bilirubin,Total 0.4 mg/dl (0.2-1.0); Blood Urea Nitrogen 15.0 mg/dl (6-23); Calcium 8.5 mg/dl (8.6-10.3); Carbon Dioxide 26.0 mmol/L (21-32); Chloride 100.0 mmol/L (98-107); Creatinine Clr Calc Pharmacy 79.3 ml/min; Globulin 3.4 gm/dl (2.5-4.0); Glucose 177.0 mg/dl (70-99(Fasting)); Potassium 3.7 mmol/L (3.5-5.1); Sodium 137.0 mmol/L (136-145); Total Protein 6.4 gm/dl (6.0-8.3)
--- NOTE | 2025-01-27 22:06 | XRay Report ---
Exam(s): XR CXR 1 VIEW EXAM: XR Chest, 1 View CLINICAL HISTORY: Reason for exam: weakness. TECHNIQUE: Frontal view of the chest. COMPARISON: No relevant prior studies available. FINDINGS: Lungs: Unremarkable. No consolidation. Pleural space: Unremarkable. No pneumothorax. Heart: Unremarkable. No cardiomegaly. Mediastinum: Unremarkable. Normal mediastinal contour. Bones/joints: Unremarkable. No acute fracture. IMPRESSION: Normal chest x-ray. Electronically signed by: Randy Brown MD 01/27/25 22:05 PM
[2025-01-27 22:09] LABS: Epithelial Cell Urine Auto >20 /hpf (0-2)
[2025-01-27 22:10] LABS: Bacteria Urine Automated 3+ (None Seen)
[2025-01-27 22:16] LABS: Thyroid Stimulating Hormone 2.058 uIu/ml (0.300-4.500)
--- NOTE | 2025-01-27 23:00 | CT Scan Report ---
Exam(s): CT L SPINE EXAM: CT Lumbar Spine Without Intravenous Contrast CLINICAL HISTORY: Reason for exam: Fall back pain. TECHNIQUE: Axial computed tomography images of the lumbar spine without intravenous contrast. CTDI is 26.66 mGy and DLP is 1222.1 mGy-cm. Automated exposure control was utilized for the study. A dose lowering technique was utilized adhering to the principles of ALARA. COMPARISON: 10/07/2024 FINDINGS: Vertebrae: Interval worsening L1 vertebral body compression fracture. With now results in 99% vertebral body height loss with stable retropulsion of a fracture fragments of the spinal canal. New fracture involving the superior endplate of L4 resulting in 2% vertebral body height loss. Persistent chronic L3 compression fracture resulting in 20% vertebral body height loss. Interval development of a L2 central superior endplate Schmorl's node. Degenerative changes of the lumbar spine with moderate bilateral neural foraminal stenosis at Narrowing at L4-5 and L5-S1 due to a degenerative disc bulge and bony hypertrophy. Discs/spinal canal/neural foramina: See above. Soft tissues: Large right renal pelvis calculus measuring 2.7 cm. This is unchanged from prior exam.. IMPRESSION: New fracture involving the superior endplate of L4 resulting in 2% vertebral body height loss. . Interval development of a L2 central superior endplate acute fracture Electronically signed by: Randy Brown MD 01/27/25 22:59 PM
--- NOTE | 2025-01-27 23:23 | CT Scan Report ---
Exam(s): CT T SPINE EXAM: CT Thoracic Spine Without Intravenous Contrast CLINICAL HISTORY: Reason for exam: Fall/ back pain. TECHNIQUE: Axial computed tomography images of the thoracic spine without intravenous contrast. CTDI is 26.66 mGy and DLP is 1222.1 mGy-cm. Automated exposure control was utilized for the study. A dose lowering technique was utilized adhering to the principles of ALARA. COMPARISON: No relevant prior studies available. FINDINGS: Vertebrae: Acute T12 and T11 vertebral body compression fracture resulting in 50% vertebral body height loss. Discs/spinal canal/neural foramina: No acute findings. No spinal canal stenosis. Soft tissues: Unremarkable. IMPRESSION: Acute T11 and T12 vertebral body compression fractures Electronically signed by: Randy Brown MD 01/27/25 23:22 PM
--- NOTE | 2025-01-28 01:17 | History & Physical Report ---
Date of Service January 28, 2025 Assessment & Plan (1) Compression fracture of body of thoracic vertebra: Plan: 79-year-old female with past medical history significant for hypertension, diabetes, hyperlipidemia, history of pericardial effusion, history of PSVT status post ablation 2004, GERD with esophagitis, osteoarthritis of knees, history of insomnia, spinal stenosis of lumbar region, sacroiliitis, history of AML on chemotherapy with Decitabine/venetoclax last chemo was in august 2024 ,infectious prophylaxis with acyclovir, voriconazole, history of lumbar compression fracture currently living with her daughter and ambulates with a walker comes because of falls. Patient states she fell last Sunday while she was trying to go to the bathroom. She fell on the left hip region. Did not hit her head and no loss of consciousness. Since then she has pain in the left hip region. Today she fell again. No loss of consciousness and did not hit her head. Because of falls daughter brought her to the hospital. Imaging studies showing T11-T12 ,L4 and L2 compression fractures. Patient having back pain. Denies any headache. Denies dizziness. No runny nose or sore throat. No cough. No fevers. Appetite is not great. Denies any chest pain. No shortness of breath. No nausea. No abdominal pain. Normal bowel and bladder movements. No rashes. Hemodynamics are okay. In September 2024 patient was admitted for compression fracture lumbar spine v elsie thought to be a poor surgical candidate because of pancytopenia and she was discharged to rehab. Again she was admitted end of September with bacteremia with Staph epidermidis and was treated for osteomyelitis of lumbar vertebrae and psoas muscle abscess and underwent left psoas abscess CT-guided drainage. During that admission a port was removed and she was treated with IV vancomycin for 6 to 8 weeks. She completed IV antibiotics in 11/27/2024. She was again admitted on 12/13/2024 with confusion poor appetite ,poor ambulatory status and treated for complicated UTI with 7 days of IV antibiotics. She also had large calculus of the right renal pelvis and ureteropelvic junction with associated hydro nephrosis/hydroureter and plan to follow-up with urology. After last admission patient had difficulty placement and she was discharged home with home health. Falls Compression fracture of thoracic spine T11 and T12. Compression fracture lumbar spine L4 and L2 History of compression fracture lumbar spine Pain control Will follow MRI scan to discuss with spine ortho PT OT when stable Diabetes Not on meds Will monitor Will follow HbA1c levels History of AML Last chemo was in August Chemo hold because of ongoing infections Follow-up with heme-onc Will continue prophylaxis acyclovir/voriconazole Acute UTI Will follow cultures History of Enterococcus Will place on Zosyn Hypertension On amlodipine Will monitor Depression On Zoloft and Remeron Prolonged QTc Avoid QT prolonging drugs Will follow repeat EKG GERD On Pepcid Hyperlipidemia On statin Anemia Hemoglobin 10.5 Around baseline We will follow vitamin B12 folate levels Will follow labs DVT prophylaxis SCDs for now Disposition Medical floor CODE STATUS DNR/DNI as per my discussion with the patient History of Present Illness Chief Complaint: Falls Primary Care Provider: Vidal Card MD 79-year-old female with past medical history significant for hypertension, diabetes, hyperlipidemia, history of pericardial effusion, history of PSVT status post ablation 2004, GERD with esophagitis, osteoarthritis of knees, history of insomnia, spinal stenosis of lumbar region, sacroiliitis, history of AML on chemotherapy with Decitabine/venetoclax last chemo was in august 2024 ,infectious prophylaxis with acyclovir, voriconazole, history of lumbar compression fracture currently living with her daughter and ambulates with a walker comes because of falls. Patient states she fell last Sunday while she was trying to go to the bathroom. She fell on the left hip region. Did not hit her head and no loss of consciousness. Since then she has pain in the left hip region. Today she fell again. No loss of consciousness and did not hit her head. Because of falls daughter brought her to the hospital. Imaging studies showing T11-T12 ,L4 and L2 compression fractures. Patient having back pain. Denies any headache. Denies dizziness. No runny nose or sore throat. No cough. No fevers. Appetite is not great. Denies any chest pain. No shortness of breath. No nausea. No abdominal pain. Normal bowel and bladder movements. No rashes. Hemodynamics are okay. In September 2024 patient was admitted for compression fracture lumbar spine vertebrae thought to be a poor surgical candidate because of pancytopenia and she was discharged to rehab. Again she was admitted end of September with bacteremia with Staph epidermidis and was treated for osteomyelitis of lumbar vertebrae and psoas muscle abscess and underwent left psoas abscess CT-guided drainage. During that admission a port was removed and she was treated with IV vancomycin for 6 to 8 weeks. She completed IV antibiotics in 11/27/2024. She was again admitted on 12/13/2024 with confusion poor appetite ,poor ambulatory status and treated for complicated UTI with 7 days of IV antibiotics. She also had large calculus of the right renal pelvis and ureteropelvic junction with associated hydro nephrosis/hydroureter and plan to follow-up with urology. After last admission patient had difficulty placement and she was discharged home with home health. Past medical history. As mentioned above. Past surgical history. Hysterectomy. Injection of the lumbosacral spine. Appendectomy. Knee meniscectomy. IR drainage of left psoas abscess, a port placement and removal. Social history. . No smoking. Alcohol wine at night as per Kromek. No drug use. Family history. Father had CLL. Mother had diabetes. [place]. Allergies Allergy/AdvReac Type Severity Reaction Status Date / Time No Known Allergies Allergy Mild Verified 01/28/25 00:04 Home Medications Medication Instructions Recorded Confirmed Type Lactobacillus acidophilus and 1 cap PO BID 12/13/24 01/27/25 History rhamnosus 15 billion cell capsule (Probiotic) acetaminophen 500 mg tablet 1,000 mg PO TID PRN Pain 12/13/24 01/27/25 History acyclovir 400 mg tablet 400 mg PO BID 12/13/24 01/28/25 History amlodipine 5 mg tablet 5 mg PO QAM 12/13/24 01/27/25 History atorvastatin 20 mg tablet 20 mg PO HS 12/13/24 01/28/25 History cyanocobalamin (vitamin B-12) 1,000 mcg PO QAM 12/13/24 01/27/25 History 1,000 mcg tablet famotidine 20 mg tablet 20 mg PO AMHS 12/13/24 01/27/25 History lidocaine 5 % topical patch 1 patch topical DAILY PRN low back 12/13/24 01/28/25 History pain melatonin 5 mg tablet 5 mg PO HS PRN Insomnia 12/13/24 01/27/25 History potassium chloride 20 mEq 20 meq PO QAM 12/13/24 01/27/25 History tablet,extended release sennosides 8.6 mg-docusate sodium 2 tab-cap PO BID PRN Constipation 12/13/24 01/28/25 History 50 mg tablet (Senokot-S) voriconazole 200 mg tablet 200 mg PO Q12H 12/13/24 01/28/25 History mirtazapine 30 mg tablet 30 mg PO HS #30 tabs 01/09/25 01/27/25 Rx lorazepam 0.5 mg tablet 0.25 mg PO HS PRN Anxiety 01/27/25 01/27/25 History sertraline 25 mg tablet 25 mg PO QAM 01/27/25 01/27/25 History tramadol 50 mg tablet 50 mg PO Q6 PRN pain,moderate 01/27/25 01/27/25 History calcium carbonate 500 mg PO Q6 PRN Heartburn 01/28/25 01/28/25 History polyethylene glycol 3350 17 17 g PO QAM PRN Constipation 01/28/25 01/28/25 History gram/dose oral powder (Miralax) Past Med/Surg History Problem List (Updated 01/28/25 @ 01:20 by Jose R Louie MD) Compression fracture of body of thoracic vertebra Compression fx, thoracic spine (Acute) Compression fracture of lumbar vertebra (Acute) Major depressive disorder with single episode Right renal stone AMS (altered mental status) Low bicarbonate (Acute) Elevated lactic acid level (Acute) Diarrhea (Acute) Sepsis (Acute) Advanced care planning/counseling discussion Palliative care by specialist Weakness generalized Cancer related pain Generalized anxiety disorder Poor appetite Anxiety and depression Staphylococcus epidermidis bacteremia Bacteremia Severe back pain Compression fracture of L3 vertebra Neutropenia (Acute) Compression fracture of lumbar vertebra (Acute) Back pain (Acute) Physical deconditioning Anxiety Diabetes mellitus, type II Pancytopenia (Acute) Biceps tendinitis of right shoulder Lumbar spondylosis 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, left Medical History Compression fracture of L1 vertebra Pericardial effusion History of - 02/2024- evaluated by S cardio- felt related to AML and/or chemo treatments- repeat ECHOs showed improvement (most recent ECHO 05/2024) Lumbar spondylosis Biceps tendinitis of right shoulder Anxiety HTN (hypertension) Diabetes mellitus type II, controlled no meds most recent Hgb A1C 12/2024 was 7.5 History of cellulitis 12/2023 per records Hx of acute respiratory failure (01/2024) had been at [place], transferred to [facility]- resolved AML (acute myeloblastic leukemia) (12/2023) [facility]- dr. oliver- gets chemo 1 week every month unless wbc is off, last chemo was week august 31. has blood drawn weekly at [facility] SVT (supraventricular tachycardia) (2004) History of SVT- s/p 2004- no issues since. Sciatica Elevated cholesterol Controlled with statin Surgical History Port-A-Cath in place (10/14/24) Removal of A-port(Left) - [facility], History of insertion of tunneled central venous catheter (CVC) with port (01/2024) right side armstrong cath placed in [place] History of left knee replacement (2019) History of bone marrow biopsy (07/17/24) x3- [place] and [facility] S/P epidural steroid injection sciatica History of appendectomy (1967) H/O cardiac radiofrequency ablation (2004) 2004 H/O: hysterectomy (1989) [facility] with BSO Family History Father Cancer Other Coronary heart disease Diabetes Leukemia No family history of adverse response to anesthesia Social History (Updated 12/29/24 @ 09:07 by Mitesh Graham MA) Smoking Status: Unknown if ever smoked Second Hand Exposure: No; Do You Dip or Chew Tobacco: No; Hx Alcohol Use: No Hx Substance Use: No Preferred Language: Scottish Communication Ability: Effective Visual Impairment: No Limitations Fire Patroller Required: No Beliefs That Will Affect Care: None marital status: Current Living Situation: [facility] Current Living Situation Comment: previously lived w/daughter & grandson Feels Safe at Home: Yes Safety Concerns: Feels Safe At This Time Assistive Devices: Cane and Walker Review of Systems Review of Systems: All systems reviewed & are unremarkable except as noted in HPI & below Physical Exam Physical Exam: General- Not in distress Head- atraumatic Eyes- PERRL. ENT- oropharynx clear Neck- supple, no JVD. Lungs- clear to auscultation no wheezing or crackles Heart- regular rhythm; no murmur, no gallop. Abdomen- normal bowel sounds, soft, nontender, no distension Extremities- mild pretibial edema, noerythema seen Neuro- alert, oriented; PERRL, no facial palsy; no dysarthria; moves extremities Results & Data Results & Data Vital Signs (Past 12 Hours) Vital Signs Temp Pulse Pulse Resp BP BP Pulse Ox 01/28/25 00:31 95 H 115/71 92 01/28/25 00:08 114 H 01/27/25 22:50 99 H 24 126/73 94 01/27/25 21:57 97 H 30 H 129/72 95 01/27/25 20:54 104 H 12 98 01/27/25 20:20 36.8 C 106 H 22 133/82 99 01/27/25 20:14 100 H O2 Del Method 01/28/25 00:31 Room Air 01/28/25 00:08 01/27/25 22:50 Room Air 01/27/25 21:57 Room Air 01/27/25 20:54 Room Air 01/27/25 20:20 Room Air 01/27/25 20:14 Diagnostic Findings Laboratory Results WBC 5.21 K/ul (4.8-10.8) 01/27/25 20:54 RBC 2.87 M/uL (4.20-5.40) L 01/27/25 20:54 Hgb 10.5 g/dL (12.0-16.0) L 01/27/25 20:54 Hct 31.5 % (37.0-47.0) L 01/27/25 20:54 MCV 109.8 fL (80.0-100.0) H 01/27/25 20:54 MCH 36.6 pg (25.0-34.0) H 01/27/25 20:54 MCHC 33.3 g/dL (32.0-36.0) 01/27/25 20:54 RDW Std Deviation 64.3 fL (36.4-46.3) H 01/27/25 20:54 RDW Coeff of Patti 16.2 % (11.5-14.5) H 01/27/25 20:54 Plt Count 197 K/uL (130-400) 01/27/25 20:54 MPV 9.8 fL (9.4-12.4) 01/27/25 20:54 Immature Gran % (Auto) 0.6 % 01/27/25 20:54 Neut % (Auto) 61.0 % 01/27/25 20:54 Lymph % (Auto) 28.0 % 01/27/25 20:54 [place] % (Auto) 10.0 % 01/27/25 20:54 Eos % (Auto) 0.0 % 01/27/25 20:54 Baso % (Auto) 0.4 % 01/27/25 20:54 Neut # (Auto) 3.18 K/uL (1.40-6.50) 01/27/25 20:54 Lymph # (Auto) 1.46 K/uL (1.20-3.40) 01/27/25 20:54 [place] # (Auto) 0.52 K/uL (0.11-0.59) 01/27/25 20:54 Eos # (Auto) 0.00 K/uL (0.00-0.50) 01/27/25 20:54 Baso # (Auto) 0.02 K/uL (0.00-0.20) 01/27/25 20:54 Immature Gran # (Auto) 0.03 K/uL (0.01-0.20) 01/27/25 20:54 Sodium 137 mmol/L (136-145) 01/27/25 20:54 Potassium 3.7 mmol/L (3.5-5.1) 01/27/25 20:54 Chloride 100 mmol/L (98-107) 01/27/25 20:54 Carbon Dioxide 26 mmol/L (21-32) 01/27/25 20:54 Anion Gap 11 (3-11) 01/27/25 20:54 BUN 15 mg/dl (6-23) 01/27/25 20:54 Creatinine 0.47 mg/dl (0.6-1.2) L 01/27/25 20:54 Est Cr Clr Drug Dosing 79.3 ml/min 01/27/25 20:54 eGFR 97.99 01/27/25 20:54 BUN/Creatinine Ratio 31.9 (10-20) H 01/27/25 20:54 Glucose 177 mg/dl (70-99(Fasting)) H 01/27/25 20:54 Calcium 8.5 mg/dl (8.6-10.3) L 01/27/25 20:54 Total Bilirubin 0.4 mg/dl (0.2-1.0) 01/27/25 20:54 AST 36 U/L (13-39) 01/27/25 20:54 ALT 12 U/L (7-52) 01/27/25 20:54 Alkaline Phosphatase 147 U/L (34-104) H 01/27/25 20:54 Troponin I High Sens 8.6 pg/ml (0-14) 01/27/25 20:54 Total Protein 6.4 gm/dl (6.0-8.3) 01/27/25 20:54 Albumin 3.0 gm/dl (3.4-5.0) L 01/27/25 20:54 Globulin 3.4 gm/dl (2.5-4.0) 01/27/25 20:54 Albumin/Globulin Ratio 0.9 (0.9-2) 01/27/25 20:54 TSH 2.058 uIu/ml (0.300-4.500) 01/27/25 20:54 Urine Color Yellow 01/27/25 21:21 Urine Appearance Cloudy (Clear) A 01/27/25 21:21 Urine pH 6.0 (4.5-7.5) 01/27/25 21:21 Ur Specific [place] 1.017 (1.000-1.030) 01/27/25 21:21 Urine Protein 1+ (Negative) H 01/27/25 21:21 Urine Glucose (UA) Negative (Negative) 01/27/25 21:21 Urine Ketones Negative (Negative) 01/27/25 21: Urine Blood 3+ (Negative) H 01/27/25 21:21 Urine Nitrite Negative (Negative) 01/27/25 21:21 Urine Bilirubin Negative (Negative) 01/27/25 21:21 Urine Urobilinogen Negative (Negative) 01/27/25 21:21 Ur Leukocyte Esterase 2+ (Negative) H 01/27/25 21:21 Urine WBC (Auto) >50 /hpf (0-5) H 01/27/25 21:21 Urine RBC (Auto) >20 /hpf (0-2) H 01/27/25 21:21 U Hyaline Cast (Auto) 11-20 /lpf (0-2) H 01/27/25 21:21 U Epithel Cells (Auto) >20 /hpf (0-2) H 01/27/25 21:21 Urine Bacteria (Auto) 3+ (None Seen) H 01/27/25 21:21 Calcium Oxalate Crystal Present (None Prsent) A 01/27/25 21:21 Hyaline Casts Present /lpf (None Presnt) A 01/27/25 21:21 Urine Mucus Present (None Prsent) A 01/27/25 21:21 Urine Comment 01/27/25 21:21 Impressions Chest X-Ray 01/27/25 20:48 Exam(s): XR CXR 1 VIEW EXAM: XR Chest, 1 View CLINICAL HISTORY: Reason for exam: weakness. TECHNIQUE: Frontal view of the chest. COMPARISON: No relevant prior studies available. FINDINGS: Lungs: Unremarkable. No consolidation. Pleural space: Unremarkable. No pneumothorax. Heart: Unremarkable. No cardiomegaly. Mediastinum: Unremarkable. Normal mediastinal contour. Bones/joints: Unremarkable. No acute fracture. IMPRESSION: Normal chest x-ray. Electronically signed by: Randy Brown MD 01/27/25 22:[address] 01/27/25 20:48 Exam(s): CT L SPINE EXAM: CT Lumbar Spine Without Intravenous Contrast CLINICAL HISTORY: Reason for exam: Fall back pain. TECHNIQUE: Axial computed tomography images of the lumbar spine without intravenous contrast. CTDI is 26.66 mGy and DLP is 1222.1 mGy-cm. Automated exposure control was utilized for the study. A dose lowering technique was utilized adhering to the principles of ALARA. COMPARISON: 10/07/2024 FINDINGS: Vertebrae: Interval worsening L1 vertebral body compression fracture. With now results in 99% vertebral body height loss with stable retropulsion of a fracture fragments of the spinal canal. New fracture involving the superior endplate of L4 resulting in 2% vertebral body height loss. Persistent chronic L3 compression fracture resulting in 20% vertebral body height loss. Interval development of a L2 central superior endplate Schmorl's node. Degenerative changes of the lumbar spine with moderate bilateral neural foraminal stenosis at Narrowing at L4-5 and L5-S1 due to a degenerative disc bulge and bony hypertrophy. Discs/spinal canal/neural foramina: See above. Soft tissues: Large right renal pelvis calculus measuring 2.7 cm. This is unchanged from prior exam.. IMPRESSION: New fracture involving the superior endplate of L4 resulting in 2% vertebral body height loss. . Interval development of a L2 central superior endplate acute fracture Electronically signed by: Randy Brown MD 01/27/25 22:[address] 01/27/25 20:48 Exam(s): CT T SPINE EXAM: CT Thoracic Spine Without Intravenous Contrast CLINICAL HISTORY: Reason for exam: Fall/ back pain. TECHNIQUE: Axial computed tomography images of the thoracic spine without intravenous contrast. CTDI is 26.66 mGy and DLP is 1222.1 mGy-cm. Automated exposure control was utilized for the study. A dose lowering technique was utilized adhering to the principles of ALARA. COMPARISON: No relevant prior studies available. FINDINGS: Vertebrae: Acute T12 and T11 vertebral body compression fracture resulting in 50% vertebral body height loss. Discs/spinal canal/neural foramina: No acute findings. No spinal canal stenosis. Soft tissues: Unremarkable. IMPRESSION: Acute T11 and T12 vertebral body compression fractures Electronically signed by: Randy Brown MD 01/27/25 23:22 PM ECG Additional Comments: ECG. Sinus rhythm with PACs at rate of 96. Right bundle branch block. T wave abnormalities s inferior lateral leads. QTc 515 Code Status & VTE Plan VTE Prophylaxis Plan VTE Prophylaxis will be ordered: Yes
[2025-01-28] MEDS ORDERED: LORazepam 0.5 MG TAB PO PRN (01:23)
[2025-01-28] MEDS ORDERED: POLYETHYLENE (MIRALAX) 17 GM PACK PO PRN (01:23)
[2025-01-28] MEDS ORDERED: CALCIUM CARBONATE 500 MG CHEWABLE TAB PO PRN (01:30)
[2025-01-28] MEDS: LACTATED RINGER'S 1,000 ML IV SCH (01:30)
[2025-01-28] MEDS: SODIUM CHLORIDE 0.9% 1,000 ML IV SCH (03:48)
[2025-01-28] MEDS: PIPERACILLIN/TAZOBACTAM 4.5 GM/100 ML BAG IV STA (03:48)
--- NOTE | 2025-01-28 04:23 | Magnetic Resonance Report ---
EXAM: MR thoracic spine wo con CLINICAL HISTORY: Thoracic compression fx TECHNIQUE: Multiplanar, multi-sequential MRI sequences of the thoracic spine without contrast administration were obtained. COMPARISON: 10/12/2024 MR FINDINGS: Intervertebral Discs: Decreased height and signal intensity of the intervertebral discs. Disc desiccation. Spinal Canal and Neural Foramina: No evidence of nerve root compression at thoracic levels. Arthropathy of the uncovertebral and zygapophyseal joints. Facet Joints: Degenerative changes. Vertebrae: Anterior wedging of the T11 vertebral body with a superior endplate hypointense fracture line, with bone marrow edema. Anterior wedging of the T12 vertebral body with an inferior endplate hypointense fracture line, with bone marrow edema. Severe compression fracture with bone marrow edema of the L1 vertebra, with severe loss of height and retropulsion of posterior cortex fragments into the spinal canal (burst fracture), causing moderate canal stenosis and traversing nerve roots. Anterior wedging of the L2 vertebral body with a superior endplate hypointense fracture line, as well as a large Schmorl node, with bone marrow edema. Level by level analysis: T1-T2: There is no focal disc pathology, central canal stenosis, or neural foraminal stenosis. T2-T3: There is no focal disc pathology, central canal stenosis, or neural foraminal stenosis. T3-T4: There is no focal disc pathology, central canal stenosis, or neural foraminal stenosis. T4-T5: There is no focal disc pathology, central canal stenosis, or neural foraminal stenosis. T5-T6: There is no focal disc pathology, central canal stenosis, or neural foraminal stenosis. T6-T7: There is no focal disc pathology, central canal stenosis, or neural foraminal stenosis. T7-T8: There is no focal disc pathology, central canal stenosis, or neural foraminal stenosis. T8-T9: There is no focal disc pathology, central canal stenosis, or neural foraminal stenosis. T9-10: There is no focal disc pathology, central canal stenosis, or neural foraminal stenosis. T10-T11: There is a small 1 mm disc bulge abutting the thecal sac, with minimal neural foraminal stenosis. No central canal stenosis. New. T11-12: There is a 2 mm disc bulge indenting the thecal sac, with mild neural foraminal stenosis. New. Spinal Cord: No evidence of intrinsic cord lesions, syrinx, or abnormal signal changes. Soft Tissues: Posterior paraspinal muscle and subcutaneous edema. IMPRESSION: 1. Anterior wedging of the T11 vertebral body with a superior endplate hypointense fracture line, with bone marrow edema. New. 2. Anterior wedging of the T12 vertebral body with an inferior endplate hypointense fracture line, with bone marrow edema. New. 3. Severe compression fracture with bone marrow edema of the L1 vertebra, with severe loss of height and retropulsion of posterior cortex fragments into the spinal canal (burst fracture), causing moderate canal stenosis and traversing nerve roots compression. Stable. 4. Anterior wedging of the L2 vertebral body with a superior endplate hypointense fracture line, as well as a large Schmorl node, with bone marrow edema. Stable. Electronically signed by Ketan Rosenberg 01-28-2025 04:23 AM
--- NOTE | 2025-01-28 04:52 | Magnetic Resonance Report ---
EXAM: MR lumbar spine wo con CLINICAL HISTORY: Acute lumbar compression fx TECHNIQUE: Different pulse sequences were performed in different planes of the lumbar spine without contrast. Images were sent through PACS for diagnostic interpretation. COMPARISON: 11/13/2024 MR FINDINGS: Vertebral Alignment: Evidence of muscle spasm. Grade 1 anterior spondylolisthesis of L4 over L5. Vertebral Bodies and Intervertebral Discs: Anterior wedging of the T11 vertebral body with a superior endplate hypointense fracture line, with bone marrow edema. Anterior wedging of the T12 vertebral body with an inferior endplate hypointense fracture line, with bone marrow edema. Severe compression fracture of the L1 vertebra with bone marrow edema, severe loss of height, and retropulsion of posterior cortex fragments into the spinal canal (burst fracture), causing moderate canal stenosis and traversing nerve roots. Anterior wedging of the L2 vertebral body with a superior endplate hypointense fracture line, as well as a large Schmorl node, with bone marrow edema. L3 vertebra mildly decreased in height, with faint inferior endplate fracture line. L4 superior endplate hypointense fracture line with bone marrow edema. Intervertebral discs demonstrate dehydration and degenerative changes. Loss of L1-L2 disc space. Ebahi-sh-zbsge analysis: T12-L1: There is a 2 mm disc bulge indenting the thecal sac, with mild neural foraminal stenosis. No spinal canal stenosis. L1-L2: There is a previously described burst fracture of L1 with retrobulging and a disc bulge with moderate unilateral neural foraminal stenosis. L2-L3: There is a 2.5 mm disc bulge with annular tear indenting the thecal sac, with moderate bilateral neural foraminal stenosis. No spinal canal stenosis. L3-L4: There is a 2.7 mm disc bulge indenting the thecal sac, with moderate neural foraminal stenosis. No spinal canal stenosis. L4-L5: There is a 2 mm pseudodisc indenting the thecal sac, with moderate right foraminal stenosis, abutting the exiting nerve root, and mild left foraminal stenosis. Mild spinal canal stenosis. L5-S1: There is a 2.5 mm disc bulge abutting the thecal sac, with mild neural foraminal stenosis. No spinal canal stenosis. Spinal Cord and Nerve Roots: Conus medullaris terminates at the L1 level without abnormality. Soft Tissues: Posterior paraspinal subcutaneous soft tissue edema. 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 IMPRESSION: 1. Anterior wedging of the T11 vertebral body with a superior endplate hypointense fracture line, with bone marrow edema. New. 2. Anterior wedging of the T12 vertebral body with an inferior endplate hypointense fracture line, with bone marrow edema. New. 3. Severe compression fracture of the L1 vertebra with bone marrow edema, severe loss of height, and retropulsion of posterior cortex fragments into the spinal canal (burst fracture), causing moderate canal stenosis and traversing nerve roots. Stable. 4. Anterior wedging of the L2 vertebral body with a superior endplate hypointense fracture line, as well as a large Schmorl node, with bone marrow edema. Stable. 5. L3 vertebra mildly decreased in height, with a faint inferior endplate fracture line. Stable. 6. L4 superior endplate hypointense fracture line with bone marrow edema. New. 7. Multilevel discopathy and Grade 1 anterior spondylolisthesis of L4 over L5. (Stable) Electronically signed by Ketan Rosenberg 01-28-2025 04:51 AM
[2025-01-28 07:07] LABS: Hematocrit (blood only) 28.0 % (37.0-47.0); Hemoglobin 9.1 g/dL (12.0-16.0); Immature Granulocytes # (auto) 0.04 K/uL (0.01-0.20); Immature Granulocytes % (auto) 0.9 %; Mean Corpuscular Hemoglobin 35.5 pg (25.0-34.0); Mean Corpuscular Volume 109.4 fL (80.0-100.0); Platelet Count 147 K/uL (130-400); RDW Standard Deviation 66.4 fL (36.4-46.3); Red Blood Count 2.56 M/uL (4.20-5.40); White Blood Count 4.37 K/ul (4.8-10.8)
[2025-01-28 07:32] LABS: Anion Gap 7.0 (3-11); Blood Urea Nitrogen 11.0 mg/dl (6-23); Calcium 7.7 mg/dl (8.6-10.3); Carbon Dioxide 29.0 mmol/L (21-32); Chloride 103.0 mmol/L (98-107); Creatinine Clr Calc Pharmacy 90.9 ml/min; Glucose 74.0 mg/dl (70-99(Fasting)); Magnesium 1.7 mg/dl (1.7-2.4); Potassium 3.5 mmol/L (3.5-5.1); Sodium 139.0 mmol/L (136-145)
[2025-01-28 07:52] LABS: Folate (Folic Acid),Ser orPlas 12.43 ng/ml (>5.38)
[2025-01-28 07:53] LABS: Vitamin B12 309.0 pg/ml (180-914)
[2025-01-28] MEDS: PIPERACILLIN/TAZOBACTAM 4.5 GM/100 ML BAG IV SCH (08:46)
[2025-01-28] MEDS: FAMOTIDINE 20 MG TAB ONE (09:22)
[2025-01-28] MEDS: ACYCLOVIR 400 MG TAB PO SCH (09:27)
[2025-01-28] MEDS: SERTRALINE HCL 50 MG TABLET PO SCH (09:28)
[2025-01-28] MEDS: FAMOTIDINE 20 MG TAB PO SCH (09:28)
[2025-01-28] MEDS: ADVANCED PROBIOTIC 625 MG CAPSULE PO SCH (09:28)
[2025-01-28] MEDS: VORICONAZOLE 200 MG TABLET PO SCH (09:28)
[2025-01-28] MEDS: CYANOCOBALAMIN (B-12) 500 MCG TABLET PO SCH (09:28)
[2025-01-28] MEDS: POTASSIUM CHLORIDE CRTAB 20 MEQ TABCR PO SCH (09:28)
--- NOTE | 2025-01-28 12:14 | Hospitalist Progress Note ---
Date of Service January 28, 2025 Assessment & Plan (1) Compression fracture of body of thoracic vertebra: Plan: 79 yo F w/ PMH of HTN, DM, HLD, pericardial effusion, PSVT s/p ablation 2004, GERD with esophagitis, osteoarthritis of knees, insomnia, spinal stenosis of lumbar region, sacroiliitis, AML on chemotherapy with Decitabine/venetoclax last chemo was in august 2024 ,infectious prophylaxis with acyclovir, voriconazole, lumbar compression fracture currently living with her daughter and ambulates with a walker comes because of falls. Patient states she fell last Sunday while she was trying to go to the bathroom, hit left hip, has left hip pain; No head trauma/loc. On Sunday, she fell again, no head trauma/loc. Because of falls daughter brought her to the hospital. Imaging studies showing T11-T12 ,L4 and L2 compression fractures. Patient reported back pain. Falls, mechanical Compression fracture of thoracic spine T11 and T12. Compression fracture lumbar spine L4 and L2 Pt reports 2 falls recently, both due to walker getting stuck and she loosing balance afterwards. CT and MR L and T spine reviewed: T11, T12, L4 and L2 fracture Pt complains of left hip pain, will get hip XR. recent vit D level, wnl. Pain control, orthospine consult d/w dr sherwood who will eval the patient NPO until orthospine eval. PT/OT when cleared per orthospine. Diabetes: Not on meds, monitor, repeat A1c. History of AML: Last chemo was in August. Chemo hold because of ongoing infections. Follow-up with heme-onc. Will continue prophylaxis acyclovir/ voriconazole Possible UTI: History of Enterococcus, pt denies pain or burning w/ passing urine this time. pt was started on antibiotic due to abn UA, await urine Cx results before determining continued atb need. c/w zosyn for now. Hypertension: On amlodipine. Will monitor Depression: On Zoloft and Remeron Prolonged QTc: Avoid QT prolonging drugs. Will follow repeat EKG GERD: On Pepcid Hyperlipidemia: On statin Anemia Hemoglobin 10.5 Around baseline wnl vitamin B12 folate levels Will follow labs DVT prophylaxis: SCDs for now Disposition: Medical floor CODE STATUS : DNR/DNI Admission and Anticipated Discharge Date Admission Date: January 28, 2025 Subjective Patient was seen and examined at bedside. Patient was lying in bed, on room air, NAD, resting comfortably. Patient denies any numbness or tingling in her legs or arms, reports back pain with movement in the bed. Denies any fever or sore throat or cough or pain or burning while passing urine. Patient reports poor appetite at baseline which has been about the same prior to arrival per patient. Physical Exam Physical Exam: General- Not in distress Head- atraumatic Eyes- PERRL. ENT- oropharynx clear Neck- supple, no JVD. Lungs- clear to auscultation no wheezing or crackles Heart- regular rhythm; no murmur, no gallop. Abdomen- normal bowel sounds, soft, nontender, no distension Extremities- mild pretibial edema, noerythema seen Neuro- alert, oriented; PERRL, no facial palsy; no dysarthria; moves extremities Results & Data Results & Data Vital Signs (Past 12 Hours) Vital Signs Pulse Pulse Resp BP Pulse Ox O2 Del Method 01/28/25 07:25 81 16 123/67 91 Room Air 01/28/25 05:15 91 H 21 133/69 95 Room Air 01/28/25 00:31 95 H 115/71 92 Room Air 01/28/25 00:08 114 H
--- NOTE | 2025-01-28 15:01 | XRay Report ---
XR hip LT 2V w pelvis HISTORY: 79 years-old Female fall, left hip pain acute left hip pain status post fall COMPARISON: CT abdomen and pelvis 12/19/2024, 11/14/2024, 12/13/2024 TECHNIQUE: AP view of the pelvis with 2 views of the left hip FINDINGS: Mild osteoarthritis of the hips. There is no acute fracture, dislocation or avascular necrosis identi fied. Healing a subacute nondisplaced intertrochanteric fracture of the left femur (likely approximat juan miguel 2-3 months old). Partially imaged lumbar compression deformities. IMPRESSION: 1. No acute fracture or dislocation. 2. Healing subacute nondisplaced intertrochanteric fracture of the left femur. ACT 112: Negative or not required by law. The above report was generated using voice recognition software. It may contain grammatical, syntax o r spelling errors. Electronically signed by: Mitesh Ramos M.D. 01/28/2025 3:00 PM
[2025-01-28] MEDS: ACETAMINOPHEN 325 MG TAB PO PRN (15:22)
--- NOTE | 2025-01-28 16:06 | Orthopedic Consultation ---
Date of Consultation January 28, 2025 Assessment & Plan (1) Compression fracture of body of thoracic vertebra: Patient does have evidence of compression fractures of the thoracic and lumbar spine. Advanced fracture of L1 1. She is however reasonably comfortable with Tylenol and tramadol for pain control. We discussed revisiting a brace when out of bed. She states the brace was very cumbersome and would prefer not to have a brace. It is reasonable to attempt therapy without a brace and hopefully manage her pain with oral pain medications. I very much like to avoid surgery in her case. She has significant history of infection multilevel osteoporosis and would be a risk for adjacent of a fracture. Patient or stands and agrees. History of Present Illness Reason for Consultation: Back pain Attending Physician: Valeria Olson MD History of Present Illness This is a very pleasant 79-year-old female that has had a issue with falls over the past few days. There is been an increase in thoracolumbar back pain. She came in to the hospital for evaluation. At this point she states her pain is controlled at rest. She states she is stable and comfortable sitting in a chair. She is able to walk and states it is tolerable. She has been taking Tylenol for pain. She denies any numbness or tingling to the legs but does note weakness in the lower extremities. Allergies Allergy/AdvReac Type Severity Reaction Status Date / Time No Known Allergies Allergy Mild Verified 01/28/25 00:04 Home Medications Medication Instructions Recorded Confirmed Type Lactobacillus acidophilus and 1 cap PO BID 12/13/24 01/27/25 History rhamnosus 15 billion cell capsule (Probiotic) acetaminophen 500 mg tablet 1,000 mg PO TID PRN Pain 12/13/24 01/27/25 History acyclovir 400 mg tablet 400 mg PO BID 12/13/24 01/28/25 History amlodipine 5 mg tablet 5 mg PO QAM 12/13/24 01/27/25 History atorvastatin 20 mg tablet 20 mg PO HS 12/13/24 01/28/25 History cyanocobalamin (vitamin B-12) 1,000 mcg PO QAM 12/13/24 01/27/25 History 1,000 mcg tablet famotidine 20 mg tablet 20 mg PO AMHS 12/13/24 01/27/25 History lidocaine 5 % topical patch 1 patch topical DAILY PRN low back 12/13/24 01/28/25 History pain melatonin 5 mg tablet 5 mg PO HS PRN Insomnia 12/13/24 01/27/25 History potassium chloride 20 mEq 20 meq PO QAM 12/13/24 01/27/25 History tablet,extended release sennosides 8.6 mg-docusate sodium 2 tab-cap PO BID PRN Constipation 12/13/24 01/28/25 History 50 mg tablet (Senokot-S) voriconazole 200 mg tablet 200 mg PO Q12H 12/13/24 01/28/25 History mirtazapine 30 mg tablet 30 mg PO HS #30 tabs 01/09/25 01/27/25 Rx lorazepam 0.5 mg tablet 0.25 mg PO HS PRN Anxiety 01/27/25 01/27/25 History sertraline 25 mg tablet 25 mg PO QAM 01/27/25 01/27/25 History tramadol 50 mg tablet 50 mg PO Q6 PRN pain,moderate 01/27/25 01/27/25 History calcium carbonate 500 mg PO Q6 PRN Heartburn 01/28/25 01/28/25 History polyethylene glycol 3350 17 17 g PO QAM PRN Constipation 01/28/25 01/28/25 History gram/dose oral powder (Miralax) Patient History Medical History Compression fracture of L1 vertebra Pericardial effusion History of - 02/2024- evaluated by [facility]- felt related to AML and/or chemo treatments- repeat ECHOs showed improvement (most recent ECHO 05/2024) Lumbar spondylosis Biceps tendinitis of right shoulder Anxiety HTN (hypertension) Diabetes mellitus type II, controlled no meds most recent Hgb A1C 12/2024 was 7.5 History of cellulitis 12/2023 per records Hx of acute respiratory failure (01/2024) had been at [place], transferred to [facility]- resolved AML (acute myeloblastic leukemia) (12/2023) [facility]- dr. oliver- gets chemo 1 week every month unless wbc is off, last chemo was week of august 31. has blood drawn weekly at [facility] SVT (supraventricular tachycardia) (2004) History of SVT- s/p 2004- no issues since. Sciatica Elevated cholesterol Controlled with statin Surgical History Port-A-Cath in place (10/14/24) Removal of A-port(Left) - Randall Treviño DO History of insertion of tunneled central venous catheter (CVC) with port (01/2024) right side armstrong cath placed in [place] History of left knee replacement (2019) History of bone marrow biopsy (07/17/24) x3- [place] and [facility] S/P epidural steroid injection sciatica History of appendectomy (1967) H/O cardiac radiofrequency ablation (2004) 2004 H/O: hysterectomy (1989) [facility] with BSO Family History Father Cancer Other Coronary heart disease Diabetes Leukemia No family history of adverse response to anesthesia Social History (Updated 12/29/24 @ 09:07 by Mitesh Graham MA) Smoking Status: Unknown if ever smoked Second Hand Exposure: No; Do You Dip or Chew Tobacco: No; Hx Alcohol Use: No Hx Substance Use: No Preferred Language: Hungarian Communication Ability: Effective Visual Impairment: No Limitations Leave Specialist Required: No Beliefs That Will Affect Care: None marital status: Current Living Situation: Alf Current Living Situation Comment: previously lived w/daughter & grandson Feels Safe at Home: Yes Safety Concerns: Feels Safe At This Time Assistive Devices: Cane and Walker Physical Exam Physical Exam: Patient is sitting up in bed. She is comfortable. She was able to sit up for me with some assistance. She had no significant pain to palpation or percussion of the thoracolumbar musculature. The skin is intact. She has good strength testing lower extremities. Sensory is intact to cold and light touch. Results & Data Vital Signs (Past 12 Hours) Vital Signs Temp Pulse Resp BP Pulse Ox O2 Del Method 01/28/25 15:46 36.5 C 86 16 121/73 93 Room Air 01/28/25 13:20 36.7 C 85 18 93 Room Air 01/28/25 07:25 81 16 123/67 91 Room Air 01/28/25 05:15 91 H 21 133/69 95 Room Air
[2025-01-28] MEDS: MIRTAZAPINE TAB 15 MG TAB PO SCH (20:14)
[2025-01-28] MEDS: ATORVASTATIN 20 MG TAB PO SCH (20:14)
[2025-01-28] MEDS: REMOVE LIDODERM PATCH SCH (20:15)
[2025-01-28] MEDS: DOCUSATE SODIUM/SENNA 50/8.6MG TAB PO PRN (20:23)
[2025-01-29 06:08] LABS: Hematocrit (blood only) 29.9 % (37.0-47.0); Hemoglobin 9.6 g/dL (12.0-16.0); Immature Granulocytes # (auto) 0.03 K/uL (0.01-0.20); Immature Granulocytes % (auto) 0.8 %; Mean Corpuscular Hemoglobin 35.4 pg (25.0-34.0); Mean Corpuscular Volume 110.3 fL (80.0-100.0); Platelet Count 139 K/uL (130-400); RDW Standard Deviation 65.5 fL (36.4-46.3); Red Blood Count 2.71 M/uL (4.20-5.40); White Blood Count 3.89 K/ul (4.8-10.8)
[2025-01-29 06:27] LABS: Anion Gap 7.0 (3-11); Blood Urea Nitrogen 8.0 mg/dl (6-23); Calcium 7.5 mg/dl (8.6-10.3); Carbon Dioxide 29.0 mmol/L (21-32); Chloride 105.0 mmol/L (98-107); Creatinine Clr Calc Pharmacy 100.7 ml/min; Glucose 73.0 mg/dl (70-99(Fasting)); Magnesium 1.9 mg/dl (1.7-2.4); Potassium 3.2 mmol/L (3.5-5.1); Sodium 141.0 mmol/L (136-145)
[2025-01-29 06:32] LABS: Macrocytosis Present
[2025-01-29 07:42] LABS: Hemoglobin A1C 4.8 % (4.5-5.6)
[2025-01-29] MEDS: POTASSIUM CHLORIDE CRTAB 20 MEQ TABCR PO STA (11:02)
--- NOTE | 2025-01-29 12:58 | Hospitalist Progress Note ---
Date of Service January 29, 2025 Assessment & Plan (1) Compression fracture of body of thoracic vertebra: Plan: 79 yo F w/ PMH of HTN, DM, HLD, pericardial effusion, PSVT s/p ablation 2004, GERD with esophagitis, osteoarthritis of knees, insomnia, spinal stenosis of lumbar region, sacroiliitis, AML on chemotherapy with Decitabine/venetoclax last chemo was in august 2024 ,infectious prophylaxis with acyclovir, voriconazole, lumbar compression fracture currently living with her daughter and ambulates with a walker comes because of falls. Patient states she fell last Sunday while she was trying to go to the bathroom, hit left hip, has left hip pain; No head trauma/loc. On Sunday, she fell again, no head trauma/loc. Because of falls daughter brought her to the hospital. Imaging studies showing T11-T12 ,L4 and L2 compression fractures. Patient reported back pain. Falls, mechanical Compression fracture of thoracic spine T11 and T12. Compression fracture lumbar spine L4 and L2 Pt reports 2 falls recently, both due to walker getting stuck and she loosing balance afterwards. CT and MR L and T spine reviewed: T11, T12, L4 and L2 fracture Pt complains of left hip pain, will get hip XR. recent vit D level, wnl. Pain control, orthospine evaled PT/OT, pt agrees w/ tlso brace pt reports improving pain, no numbness or tingling Diabetes: Not on meds, monitor, repeat A1c. History of AML: Last chemo was in August. Chemo hold because of ongoing infections. Follow-up with heme-onc. Will continue prophylaxis acyclovir/voriconazole Possible UTI: History of Enterococcus, pt denies pain or burning w/ passing urine this time. Urine Cx likely colonizer given pt doesn't have symptoms, will dc antibiotic. Hypertension: On amlodipine. Will monitor Depression: On Zoloft and Remeron Prolonged QTc: Avoid QT prolonging drugs. Will follow repeat EKG GERD: On Pepcid Hyperlipidemia: On statin Anemia Hemoglobin 10.5 Around baseline wnl vitamin B12 folate levels Will follow labs DVT prophylaxis: hep sc Disposition: Medical floor CODE STATUS : DNR/DNI Head to toe exam: Subjective: [usual state of health, back pain improving] CAGE-AID Screen: [n/a] Objective: Lab Review: [reviewed, stable] Imaging Review: [yes] Physical Exam: General: - Alert: [Yes] - Oriented: [Yes] - GCS 15: [Yes] HEENT: - No pain/tenderness. - No lacerations/abrasions - No numbness/tingling - PERLAA. Normal Visual Acuity. No visual field cuts. No nystagmus. No contact lenses. Normal hearing. No relative afferent pupillary defect. No facial asymmetry. No rmal palatal elevation, uvula midline. Midline tongue protrusion. Shoulder shrug with 5/5 strength bilaterally. - Mucous membranes moist. Neck: - Midline Tenderness: No - Cleared C-Spine: Yes Thorax: - Pain/Tenderness: None - Lacerations/Abrasions: None - Swelling/Ecchymosis: None - Air/Bony Crepitus: None Cardiopulmonary: - Regular Rate and Rhythm. No murmurs, rubs or gallops. - Breath sounds CTAB. No wheezes, rales, or rhonchi. - Symmetrical Chest Rise Abdomen - Pain/Tenderness: None - Lacerations/Abrasions: None - No abdominal distension - Abdominal rigidity/guarding: None - Bowel Sounds: Present, normal - Pelvis stable Back/Spine - Lacerations/Abrasions: None - Swelling/Ecchymosis: None - Pain/Tenderness: None - Step-offs: None Extremities: - RUE: No deformity. No lacerations/abrasions. No swelling/ecchymosis. No pain/tenderness. Full active and passive range of motion. Forming Mill Operator strength, elbow flexion/extension, shoulder flexion/extension/abduction/adduction/external rotation/internal rotation intact with 5/5 strength. Sensation intact to soft touch without deficit. Radial pulse intact, cap refill in the thumb <2 seconds. Extremity warm and dry. - RLE: No deformity. No lacerations/abrasions. No swelling/ecchymosis. No pain/tenderness. Full active and passive range of motion. Forming Mill Operator strength, elbow flexion/extension, shoulder flexion/extension/abduction/adduction/external rotation/internal rotation intact with 5/5 strength. Sensation intact to soft touch without deficit. Radial pulse intact, cap refill in the thumb <2 seconds. Extremity warm and dry. - LUE: No deformity. No lacerations/abrasions. No swelling/ecchymosis. No pain/tenderness. Full active and passive range of motion. Hip flexion/extension, knee flexion/extension, ankle dorsiflexion/plantarflexion with 5/5 strength. Sensation intact to soft touch without deficit. PT pulse intact to palpation, cap refill in the hallux <2 seconds. Extremity warm and dry. small contusions LUE forearm - LLE: No deformity. No lacerations/abrasions. No swelling/ecchymosis. No pain/tenderness. Full active and passive range of motion. Hip flexion/extension, knee flexion/extension, ankle dorsiflexion/plantarflexion with 5/5 strength. Sensation intact to soft touch without deficit. PT pulse intact to palpation, cap refill in the hallux <2 seconds. Extremity warm and dry. Mental status Adequate for Full Exam: Yes C-Spine Cleared ( Clinically): Yes New Diagnoses Identified: no New Consults Required: no Admission and Anticipated Discharge Date Admission Date: January 28, 2025 Subjective Patient was seen and examined at bedside. Patient was lying in bed, on room air, NAD, resting comfortably. Patient denies any numbness or tingling in her legs or arms, reports Improvement in low back pain. Denies any fever or sore throat or cough or pain or burning while passing urine. Patient reports poor appetite at baseline which has been about the same prior to arrival per patient. Patient was seen again later in the day at bedside, patient's daughter at bedside who was also updated on plan of care. Physical Exam Physical Exam: General- Not in distress Head- atraumatic Eyes- PERRL. ENT- oropharynx clear Neck- supple, no JVD. Lungs- clear to auscultation no wheezing or crackles Heart- regular rhythm; no murmur, no gallop. Abdomen- normal bowel sounds, soft, nontender, no distension Extremities- mild pretibial edema, noerythema seen Neuro- alert, oriented; PERRL, no facial palsy; no dysarthria; moves extremities Results & Data Results & Data Vital Signs (Past 12 Hours) Vital Signs Temp Pulse Resp BP Pulse Ox O2 Del Method 01/29/25 08:00 Room Air 01/29/25 07:45 36.6 C 88 16 119/74 93 Room Air 01/29/25 05:27 84 119/71
[2025-01-29] MEDS: HEPARIN SOD 5,000 UNIT/0.5 ML VIAL SQ SCH (20:42)
[2025-01-29] MEDS: MELATONIN 3 MG TAB PO PRN (23:13)
[2025-01-30 08:07] LABS: Anion Gap 7.0 (3-11); Blood Urea Nitrogen 8.0 mg/dl (6-23); Calcium 7.9 mg/dl (8.6-10.3); Carbon Dioxide 26.0 mmol/L (21-32); Chloride 107.0 mmol/L (98-107); Creatinine Clr Calc Pharmacy 109.6 ml/min; Glucose 75.0 mg/dl (70-99(Fasting)); Potassium 4.2 mmol/L (3.5-5.1); Sodium 140.0 mmol/L (136-145)
--- NOTE | 2025-01-30 10:12 | Electrocardiogram Report ---
Test Reason : Blood Pressure : */* mmHG Vent. Rate : 91 BPM Atrial Rate : 91 BPM P-R Int : 132 ms QRS Dur : 118 ms QT Int : 422 ms P-R-T Axes : 9 -2 -74 degrees QTcB Int : 519 ms Normal sinus rhythm Low voltage QRS R bundle type IVCD Prolonged QT Abnormal ECG When compared with ECG of 27-Jan-2025 20:30, (unconfirmed) Premature atrial complexes are no longer Present Confirmed by Andres Xie ([id number]) on 01/30/2025 10:11:54 AM Referred By: REFERRED SELF Confirmed By: Andres Xie
--- NOTE | 2025-01-30 14:28 | Hospitalist Progress Note ---
Date of Service January 30, 2025 Assessment & Plan (1) Compression fracture of body of thoracic vertebra: Plan: 79 yo F w/ PMH of HTN, DM, HLD, pericardial effusion, PSVT s/p ablation 2004, GERD with esophagitis, osteoarthritis of knees, insomnia, spinal stenosis of lumbar region, sacroiliitis, AML on chemotherapy with Decitabine/venetoclax last chemo was in august 2024 ,infectious prophylaxis with acyclovir, voriconazole, lumbar compression fracture currently living with her daughter and ambulates with a walker comes because of falls. Patient states she fell last Sunday while she was trying to go to the bathroom, hit left hip, has left hip pain; No head trauma/loc. On Sunday, she fell again, no head trauma/loc. Because of falls daughter brought her to the hospital. Imaging studies showing T11-T12 ,L4 and L2 compression fractures. Patient reported back pain. Falls, mechanical Compression fracture of thoracic spine T11 and T12. Compression fracture lumbar spine L4 and L2 Pt reports 2 falls recently, both due to walker getting stuck and she loosing balance afterwards. CT and MR L and T spine reviewed: T11, T12, L4 and L2 fracture Pt complains of left hip pain, will get hip XR. recent vit D level, wnl. Pain control, orthospine evaled PT/OT, pt agrees w/ tlso brace pt reports improving pain, no numbness or tingling Diabetes: Not on meds, monitor, repeat A1c. History of AML: Last chemo was in August. Chemo hold because of ongoing infections. Follow-up with heme-onc. Will continue prophylaxis acyclovir/voriconazole Possible UTI: History of Enterococcus, pt denies pain or burning w/ passing urine this time. Urine Cx likely colonizer given pt doesn't have symptoms, will dc'd antibiotic. Hypertension: On amlodipine. Will monitor Depression: On Zoloft and Remeron Prolonged QTc: Avoid QT prolonging drugs. Will follow repeat EKG GERD: On Pepcid Hyperlipidemia: On statin Anemia Hemoglobin 10.5 Around baseline wnl vitamin B12 folate levels Will follow labs DVT prophylaxis: hep sc Disposition: Medical floor CODE STATUS : DNR/DNI pt/ot, cm to assist w/ dc plan Admission and Anticipated Discharge Date Admission Date: January 28, 2025 Subjective Patient was seen and examined at bedside. Patient was lying in bed, on room air, NAD, resting comfortably. Patient denies any numbness or tingling in her legs or arms, reports Improvement in low back pain. reports some pain w/ activity. Denies any fever or sore throat or cough or pain or burning while passing urine. Pt states she is able to eat at her baseline. Physical Exam Physical Exam: General- Not in distress Head- atraumatic Eyes- PERRL. ENT- oropharynx clear Neck- supple, no JVD. Lungs- clear to auscultation no wheezing or crackles Heart- regular rhythm; no murmur, no gallop. Abdomen- normal bowel sounds, soft, nontender, no distension Extremities- mild pretibial edema, noerythema seen Neuro- alert, oriented; PERRL, no facial palsy; no dysarthria; moves extremities Results & Data Results & Data Vital Signs (Past 12 Hours) Vital Signs Temp Pulse Resp BP Pulse Ox O2 Del Method 01/30/25 10:09 Room Air 01/30/25 08:48 36.7 C 99 H 16 127/88 94 Room Air
--- NOTE | 2025-01-30 16:23 | Electrocardiogram Report ---
Test Reason : Blood Pressure : */* mmHG Vent. Rate : 96 BPM Atrial Rate : 96 BPM P-R Int : 138 ms QRS Dur : 126 ms QT Int : 408 ms P-R-T Axes : 21 2 -52 degrees QTcB Int : 515 ms Sinus rhythm with Premature atrial complexes Right bundle branch block T wave abnormality, consider inferolateral ischemia Abnormal ECG When compared with ECG of 23-Dec-2024 07:32, Premature atrial complexes are now Present Confirmed by Andres Xie ([id number]) on 01/30/2025 4:23:01 PM Referred By: REFERRED SELF Confirmed By: Andres Xie
[2025-01-31 07:29] LABS: Anion Gap 7.0 (3-11); Blood Urea Nitrogen 12.0 mg/dl (6-23); Calcium 8.3 mg/dl (8.6-10.3); Carbon Dioxide 27.0 mmol/L (21-32); Chloride 106.0 mmol/L (98-107); Creatinine Clr Calc Pharmacy 88.7 ml/min; Glucose 71.0 mg/dl (70-99(Fasting)); Potassium 4.3 mmol/L (3.5-5.1); Sodium 140.0 mmol/L (136-145)
--- NOTE | 2025-01-31 13:16 | Hospitalist Progress Note ---
Date of Service January 31, 2025 Assessment & Plan (1) Compression fracture of body of thoracic vertebra: Plan: 79 yo F w/ PMH of HTN, DM, HLD, pericardial effusion, PSVT s/p ablation 2004, GERD with esophagitis, osteoarthritis of knees, insomnia, spinal stenosis of lumbar region, sacroiliitis, AML on chemotherapy with Decitabine/venetoclax last chemo was in august 2024 ,infectious prophylaxis with acyclovir, voriconazole, lumbar compression fracture currently living with her daughter and ambulates with a walker comes because of falls. Patient states she fell last Sunday while she was trying to go to the bathroom, hit left hip, has left hip pain; No head trauma/loc. On Sunday, she fell again, no head trauma/loc. Because of falls daughter brought her to the hospital. Imaging studies showing T11-T12 ,L4 and L2 compression fractures. Patient reported back pain. Falls, mechanical Compression fracture of thoracic spine T11 and T12. Compression fracture lumbar spine L4 and L2 Pt reports 2 falls recently, both due to walker getting stuck and she loosing balance afterwards. CT and MR L and T spine reviewed: T11, T12, L4 and L2 fracture Pt complains of left hip pain, will get hip XR. recent vit D level, wnl. Pain control, orthospine evaled PT/OT, pt reluctant to use TLSO brace configuration and wants to use it in LSO configuration pt reports improving pain, no numbness or tingling Diabetes: Not on meds, monitor, repeat A1c. History of AML: Last chemo was in August. Chemo hold because of ongoing infections. Follow-up with heme-onc. Will continue prophylaxis acyclovir/voriconazole Possible UTI: History of Enterococcus, pt denies pain or burning w/ passing urine this time. Urine Cx likely colonizer given pt doesn't have symptoms, dc'd antibiotic. Hypertension: On amlodipine. Will monitor Depression: On Zoloft and Remeron Prolonged QTc: Avoid QT prolonging drugs. Will follow repeat EKG GERD: On Pepcid Hyperlipidemia: On statin Anemia Hemoglobin 10.5 Around baseline wnl vitamin B12 folate levels Will follow labs DVT prophylaxis: hep sc Disposition: Medical floor CODE STATUS : DNR/DNI pt/ot, pt stable for dc, cm assisting w/ dc plan Admission and Anticipated Discharge Date Admission Date: January 28, 2025 Subjective Patient was seen and examined at bedside. Patient was lying in bed, on room air, NAD, resting comfortably. Patient denies any numbness or tingling in her legs or arms, reports Improvement in low back pain. reports some pain w/ activity. Denies any fever or sore throat or cough or pain or burning while passing urine. Pt states she is able to eat at her baseline. Physical Exam Physical Exam: General- Not in distress Head- atraumatic Eyes- PERRL. ENT- oropharynx clear Neck- supple, no JVD. Lungs- clear to auscultation no wheezing or crackles Heart- regular rhythm; no murmur, no gallop. Abdomen- normal bowel sounds, soft, nontender, no distension Extremities- mild pretibial edema, noerythema seen Neuro- alert, oriented; PERRL, no facial palsy; no dysarthria; moves extremities Results & Data Results & Data Vital Signs (Past 12 Hours) Vital Signs Temp Pulse Resp BP Pulse Ox O2 Del Method 01/31/25 07:36 36.3 C L 95 H 14 147/78 H 95 Room Air
[2025-02-01 06:34] LABS: Anion Gap 5.0 (3-11); Blood Urea Nitrogen 13.0 mg/dl (6-23); Calcium 7.8 mg/dl (8.6-10.3); Carbon Dioxide 27.0 mmol/L (21-32); Chloride 107.0 mmol/L (98-107); Creatinine Clr Calc Pharmacy 79.3 ml/min; Glucose 75.0 mg/dl (70-99(Fasting)); Potassium 4.2 mmol/L (3.5-5.1); Sodium 139.0 mmol/L (136-145)
--- NOTE | 2025-02-01 12:21 | Hospitalist Progress Note ---
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 Admitting imaging studies revealed acute T11-T12 vertebral body compression fractures, an acute L4 fracture involving the superior endplate and an acute L2 central superior endplate fracture. Recurrent mechanical falls Acute T11-T12 vertebral body compression fractures Acute L4 fracture involving the superior endplate & L2 central superior endplate fracture Healing subacute nondisplaced fracture of the L femur Pt reports 2 falls recently, both due to walker getting stuck which caused her to lose her balance. Acute imaging findings as per above. Ortho spine eval'd: continue conservative management, no surgical intervention required. Was also c/o L hip pain earlier this admission >> L hip XR on 01/28 revealed a healing subacute nondisplaced fracture of the L femur. L hip pain now resolved, offers no major pain complaints at rest. No intervention needed. Continue PRN analgesia, PT/OT. Pt reluctant to use TLSO brace configuration and wants to use it in LSO configuration. Pain well-controlled on current regimen per pt. Referrals placed for SNF, awaiting response. Stable for DC when placement available. DMII: Updated Hgb A1c 4.8% this admission. Continue to monitor off meds/insulin. History of AML: Last chemo was in August 2024. Chemo on hold because of ongoing infections, recurrent hospitalization. Follow-up with heme-onc. Will continue acyclovir/voriconazole prophylaxis. Possible UTI: History of Enterococcus, pt denies pain or burning w/ passing urine this time. Urine cx likely colonizer given pt doesn't have symptoms and remains hemodynamically stable, dc'd antibiotic. Hypertension: On amlodipine. BP stable, continue to monitor. Depression: On Zoloft and Remeron as previously recommended by psych, continue. Prolonged QTc: Continue to avoid QT-prolonging drugs as able. GERD: On Pepcid, continue. Hyperlipidemia: On statin, continue. Anemia: No CBC monitoring over past few days, H/H was at baseline as of 01/29. Vit B12, folate levels WNL. DVT Prophylaxis: SCDs/TEDs, SQ heparin Code Status: DNR/DNI PCP: Vidal Card MD Disposition: Stable for DC once placement becomes available; will update pt's daughter, Nadya. Patient seen in collaboration with Dr. Olson. Please see addendum. I spent a total of 32 minutes coordinating, documenting, and providing care for this patient excluding time spent in the performance of separately billed services or time spent by another provider/QHP. This included personally revie wing all current laboratories and imaging studies, medical reconciliation, outpatient chart review and discussion with specialists. Admission and Anticipated Discharge Date Admission Date: January 28, 2025 Supervising Physician Co-Signing Physician Notes Patient is seen and examined at bedside. She is being managed for the following: Recurrent mechanical falls Multilevel vertebral compression fractures History of AML Patient has been evaluated by orthospine, recommended TLSO brace, patient does not want the brace and agreeable to use LSO brace sometimes. Patient advised to continue with physical therapy, continue with pain management. Patient will need rehab. Healing subacute nondisplaced fracture of the left femur: Patient does not have pain, noted on imaging. Will need further imaging to ensure complete resolution and orthopedic follow-up upon discharge. Patient and her daughter had been made aware. On exam: Patient on room air, no BLE edema. Rest of the examination as above. Total time spent independently: 18 minutes I have seen and examined the patient and have discussed the case with the provider above. I agree with the assessment and plan as stated. Subjective Patient seen and examined in room N386-2. NAEO. No major pain complaints at rest. Admits to feeling discouraged at times but eager to get back up on her feet. Ate breakfast this morning. Had her back brace adjusted to feel more comfortable. Wants to work on ambulating the hallways. Review of Systems Review of Systems: At least ten systems reviewed and negative, except as noted in the subjective section. Physical Exam Physical Exam: General: Elderly F, chronically ill-appearing, lying down in bed, A&Ox3 HEENT: Normocephalic, atraumatic, oropharynx normal Respiratory: Normal respiratory effort, CTAB, no accessory muscle use Cardiovascular: RRR, no BLE edema Abdomen/GI: Active bowel sounds, soft, nontender to palpation throughout Extremities/Musculoskeletal: Able to move all extremities, no pain with palpation along lateral hip regions Neurologic: No overt focal deficits, CN's II-XI not formally tested but appear grossly intact bilaterally Results & Data Results & Data Vital Signs (Past 12 Hours) Vital Signs Temp Pulse Resp BP Pulse Ox O2 Del Method 02/01/25 07:47 37.0 C 96 H 16 131/82 97 Room Air Laboratory Results [facility] 02/01/25 05:39 Sodium 139 Potassium 4.2 Chloride 107 Carbon Dioxide 27 BUN 13 Creatinine 0.47 L Glucose 75 Calcium 7.8 L
[2025-02-02 07:16] LABS: Anion Gap 8.0 (3-11); Blood Urea Nitrogen 12.0 mg/dl (6-23); Calcium 7.8 mg/dl (8.6-10.3); Carbon Dioxide 25.0 mmol/L (21-32); Chloride 108.0 mmol/L (98-107); Creatinine Clr Calc Pharmacy 98.1 ml/min; Glucose 95.0 mg/dl (70-99(Fasting)); Potassium 3.5 mmol/L (3.5-5.1); Sodium 141.0 mmol/L (136-145)
--- NOTE | 2025-02-02 11:48 | Hospitalist Progress Note ---
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 Admitting imaging studies revealed acute T11-T12 vertebral body compression fractures, an acute L4 fracture involving the superior endplate and an acute L2 central superior endplate fracture. Recurrent mechanical falls Acute T11-T12 vertebral body compression fractures Acute L4 fracture involving the superior endplate & L2 central superior endplate fracture Healing subacute nondisplaced fracture of the L femur Pt reports 2 falls recently, both due to walker getting stuck which caused her to lose her balance. Acute imaging findings as per above. Ortho spine eval'd: continue conservative management, no surgical intervention required. Was also c/o L hip pain earlier this admission >> L hip XR on 01/28 revealed a healing subacute nondisplaced fracture of the L femur. L hip pain now resolved, offers no major pain complaints at rest. No intervention needed. Continue PRN analgesia, PT/OT. Pt reluctant to use TLSO brace configuration and wants to use it in LSO configuration; LSO configuration has been more comfortable. Pain well-controlled on current regimen per pt. Referrals placed for SNF, awaiting response. Stable for DC when placement available. DMII: Updated Hgb A1c 4.8% this admission. Continue to monitor off meds/insulin. History of AML: Last chemo was in August 2024. Chemo on hold because of ongoing infections, recurrent hospitalizations. Follow-up with heme-onc, sees Dr. Gaines. Will continue acyclovir/voriconazole prophylaxis. Possible UTI: History of Enterococcus, pt denies pain or burning w/ passing urine this time. Urine cx likely colonizer given pt doesn't have symptoms and remains hemodynamically stable, dc'd antibiotic. Hypertension: On amlodipine. BP stable, continue to monitor. Depression: On Zoloft and Remeron as previously recommended by psych, continue. Prolonged QTc: Continue to avoid QT-prolonging drugs as able. GERD: On Pepcid, continue. Hyperlipidemia: On statin, continue. Anemia: No CBC monitoring over past few days, H/H was at baseline as of 01/29. Vit B12, folate levels WNL. DVT Prophylaxis: SCDs/TEDs, SQ heparin Code Status: DNR/DNI PCP: Vidal Card MD Disposition: Stable for DC once placement becomes available; called pt's daughter, Nadya, to provide update with no answer. VM left to call back. Patient seen in collaboration with Dr. Olson. Please see addendum. I spent a total of 30 minutes coordinating, documenting, and providing care for this patient excluding time spent in the performance of separately billed services or time spent by another provider/QHP. This included personally reviewing all current laboratories and imaging studies, medical reconciliation, outpatient chart review and discussion with specialists. Admission and Anticipated Discharge Date Admission Date: January 28, 2025 Supervising Physician Co-Signing Physician Notes Patient is seen and examined at bedside. She is being managed for the following: Recurrent mechanical falls Multilevel vertebral compression fractures History of AML Patient has been evaluated by orthospine, recommended TLSO brace, patient does not want the brace and agreeable to use LSO brace sometimes. Patient advised to continue with physical therapy, continue with pain management. Patient will need rehab. Healing subacute nondisplaced fracture of the left femur: Patient does not have pain, noted on imaging. Will need further imaging to ensure complete resolution and orthopedic follow-up upon discharge. Patient and her daughter had been made aware of the finding and need to f/u with ortho upon dc. On exam: Patient on room air, no BLE edema. Rest of the examination as above. Total time spent independently: 18 minutes I have seen and examined the patient and have discussed the case with the provider above. I agree with the assessment and plan as stated. Subjective Patient seen and examined in room N386-2. States she was up and ambulating the hallways yesterday, LSO brace feels comfortable. Ate breakfast this morning without issue. Pain remains well-controlled. Offers no major complaints. Slept well overnight. Awaiting rehab placement. Review of Systems Review of Systems: At least ten systems reviewed and negative, except as noted in the subjective section. Physical Exam Physical Exam: General: Elderly F, chronically ill-appearing, lying down in bed, A&Ox3, pleasant HEENT: Normocephalic, atraumatic, oropharynx normal Respiratory: Normal respiratory effort, CTAB, no accessory muscle use Cardiovascular: RRR, no BLE edema Abdomen/GI: Active bowel sounds, soft, nontender to palpation throughout Extremities/Musculoskeletal: Able to move all extremities, no pain with palpation along lateral hip regions Neurologic: No overt focal deficits, CN's II-XI not formally tested but appear grossly intact bilaterally Results & Data Results & Data Vital Signs (Past 12 Hours) Vital Signs Temp Pulse Resp BP Pulse Ox O2 Del Method 02/02/25 07:40 36.6 C 93 H 16 119/72 96 Room Air Laboratory Results [facility] 02/02/25 06:23 Sodium 141 Potassium 3.5 Chloride 108 H Carbon Dioxide 25 BUN 12 Creatinine 0.38 L Glucose 95 Calcium 7.8 L
--- NOTE | 2025-02-03 07:46 | Hospitalist Progress Note ---
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 s/p IR drainage and IV ABX, PSVT s/p ablation in 2004, GERD with esophagitis, osteoarthritis, in somnia, sacroiliitis, AML (not currently undergoing chemotherapy; on infectious prophylaxis with acyclovir/voriconazole) and lumbar compression fractures who presented to the ED on 01/27/25 due to back pain ISO recurrent falls Recurrent mechanical falls Acute T11-T12 vertebral body compression fractures Acute L4 fracture involving the superior endplate & L2 central superior endplate fracture Healing subacute nondisplaced fracture of the L femur Pt reports two falls recently, both due to walker getting stuck which caused her to lose her balance. Admitting imaging studies revealed acute T11-T12 vertebral body compression fractures, an acute L4 fracture involving the superior endplate and an acute L2 central superior endplate fracture Ortho spine evaluated and recommending conservative management, no surgical intervention required Continue PRN analgesia, PT/OT, TLSO brace Referrals placed for SNF, awaiting response Stable for DC when placement available Nausea with vomiting Tachycardia Patient reports two episodes of vomiting starting last evening Tachycardia likely secondary to dehydration EKG shows sinus tachycardia with PACs BMP unremarkable KUB unremarkable 500cc fluids given Clear liquid/full liquid diet today Antiemetics PRN-> avoiding zofran due to prolonged qtc on EKG DMII: Updated Hgb A1c 4.8% this admission. Continue to monitor off meds/insulin. History of AML: Last chemo was in August 2024. Chemo on hold because of ongoing infections, recurrent hospitalizations. Follow-up with heme-onc, sees Dr. Gaines. Will continue acyclovir/voriconazole prophylaxis. Possible UTI: Urine culture positive Alloscardovia omnicolens. Patient asymptomatic. Monitor off abx. Hypertension: On amlodipine. BP stable, continue to monitor. Depression: On Zoloft and Remeron as previously recommended by psych, continue. Prolonged QTc: Continue to avoid QT-prolonging drugs as able. GERD: On Pepcid, continue. Hyperlipidemia: On statin, continue. Anemia: H/H was at baseline as of 01/29. Vit B12, folate levels WNL. Continue to monitor DVT Prophylaxis: SQ Heparin Code Status: DNR/DNI PCP: Vidal Card MD Disposition: Stable for DC once placement becomes available Patient seen in collaboration with Dr. Santana. Please see addendum. I spent a total of 60 minutes coordinating, documenting and providing care for this patient excluding time spent in the performance of separately billed services or time spent by another provider/QHP. Admission and Anticipated Discharge Date Admission Date: January 28, 2025 Supervising Physician Co-Signing Physician Notes Patient seen and examined independently. Discussed with above provider. Patient reports that she is feeling nauseous and had episodes of vomiting last night and today morning. She reports some periumbilical pain.. KUB done and reviewed; nonobstructive bowel gas pattern. Plan to obtain BMP. Started on antiemetic. Monitor for recurrence of nausea/vomiting. I have reviewed the advanced practitioner's documentation, and I agree with, and take responsibility for the plan of care I spent a total of 20 minutes coordinating, documenting, and providing care for this patient excluding time spent in the performance of separately billed services. All of the aforementioned completed while collaborating with the assigned advanced practitioner for a full treatment plan Subjective Patient seen resting in the chair Reports nausea and vomiting with dinner last night and breakfast this morning Back pain is controlled and TLSO brace not uncomfortable Denies dizziness, chest pain, SOB, abdominal pain Moving bowels Review of Systems Review of Systems: All systems reviewed & are unremarkable except as noted in HPI & below Physical Exam Physical Exam: General/Psych: frail, sitting up in bed, NAD, conversing easily Head: normocephalic, atraumatic Eyes: normal inspection, PERRL, conjunctivae pink Neck: normal visual inspection, trachea midline Respiratory: normal respiratory effort, lungs clear to auscultation, no wheeze/rales/rhonchi, no accessory muscle use Cardiovascular: tachycardic rate and rhythm, +murmur Extremities: no cyanosis or clubbing, normal peripheral pulses, no BLE edema Abdomen/GI: normal bowel sounds, soft, nontender Neurologic/MSK: A+Ox3, motor strength 5/5, moves all extremities, TLSO brace in place Skin: no rashes, normal color, warm and dry Results & Data Results & Data Vital Signs (Past 12 Hours) Vital Signs Temp Pulse Resp BP BP Pulse Ox O2 Del Method 02/03/25 07:21 36.6 C 97 H 16 119/71 97 Room Air 02/02/25 22:43 36.8 C 103 H 16 129/74 95 Room Air Laboratory Results [facility] 02/03/25 11:20 Sodium 137 Potassium 3.9 Chloride 104 Carbon Dioxide 21 BUN 15 Creatinine 0.55 L Glucose 122 H Calcium 8.6 I have independently reviewed and interpreted patient's labs including BMP Diagnostic Findings KUB X-Ray 02/03/25 10:25 KUB HISTORY: Acute generalized abdominal pain with nausea and vomiting vomiting COMPARISON: CT abdomen and pelvis 12/19/2024 FINDINGS: Nonobstructive bowel gas pattern. Mild colonic fecal retention. Calculi within the right UPJ redemonstrated measuring up to 3 cm. No pneumoperitoneum or pneumatosis. No fracture. IMPRESSION: 1. Calculi within the right UPJ redemonstrated. 2. Nonobstructive bowel gas pattern. ACT 112: Negative or not required by law. The above report was generated using voice recognition software. It may contain grammatical, syntax or spelling errors. Electronically signed by: Mitesh Ramos M.D. 02/03/2025 11:11 AM Medications Administered Current Inpatient Medications Acetaminophen (Acetaminophen 325 Mg Tab) 650 mg PO Q4H PRN PRN Reason: pain/fever Stop: 02/27/25 01:22 Last Admin: 02/02/25 22:37 Dose: 650 mg Acyclovir (Acyclovir 400 Mg Tab) 400 mg PO BID [facility] Stop: 02/27/25 08:59 Last Admin: 02/02/25 21:18 Dose: 400 mg Amlodipine Besylate (Amlodipine Besylate 5 Mg Tab) 5 mg PO QAM [facility] Stop: 02/27/25 08:59 Last Admin: 02/02/25 09:21 Dose: 5 mg Atorvastatin Calcium (Atorvastatin 20 Mg Tab) 20 mg PO HS [facility] Stop: 02/27/25 20:59 Last Admin: 02/02/25 21:18 Dose: 20 mg Calcium Carbonate (Calcium Carbonate 500 Mg Chewable Tab) 500 mg PO Q6 PRN PRN Reason: Heartburn Stop: 02/27/25 01:29 Cyanocobalamin (Cyanocobalamin (B-12) 500 Mcg Tablet) 1,000 mcg PO QAM [facility] Stop: 02/27/25 08:59 Last Admin: 02/02/25 09:21 Dose: 1,000 mcg Famotidine (Famotidine 20 Mg Tab) 20 mg PO AMHS [facility] Stop: 02/27/25 08:59 Last Admin: 02/02/25 21:17 Dose: 20 mg Heparin Sodium (Porcine) (Heparin Sod 5,000 Unit/0.5 Ml Vial) 5,000 units SQ Q12 [facility] Stop: 02/28/25 20:59 Last Admin: 02/02/25 21:19 Dose: 5,000 units Promethazine HCl (Phenergan) 6.25 mg in 50.25 mls @ 201 mls/hr IV Q6H PRN PRN Reason: Nausea And Vomiting Stop: 02/28/25 05:21 Lactobacillus Acidophilus (Advanced Probiotic 625 Mg Capsule) 1,250 mg PO DAILY [facility] Stop: 02/27/25 08:59 Last Admin: 02/02/25 09:20 Dose: 1,250 mg Lidocaine (Lidocaine 5% 1 Patch) 1 patch TD DAILY PRN PRN Reason: low back pain Stop: 02/27/25 01:22 Lorazepam (Lorazepam 0.5 Mg Tab) 0.25 mg PO HS PRN PRN Reason: Anxiety Stop: 02/27/25 01:22 Melatonin (Melatonin 3 Mg Tab) 6 mg PO HS PRN PRN Reason: Insomnia Stop: 02/27/25 01:30 Last Admin: 01/29/25 23:13 Dose: 6 mg Mirtazapine (Mirtazapine Tab 15 Mg Tab) 30 mg PO HS [facility] Stop: 02/27/25 20:59 Last Admin: 02/02/25 21:18 Dose: 30 mg Miscellaneous (Remove Lidoderm Patch) 1 each N/A DAILY@2100 [facility] Stop: 02/27/25 20:59 Last Admin: 02/02/25 21:16 Dose: Not Given Polyethylene Glycol (Polyethylene (Miralax) 17 Gm Pack) 17 gm PO DAILY PRN PRN Reason: Constipation Stop: 02/27/25 01:22 Potassium Chloride (Potassium Chloride Crtab 20 Meq Tabcr) 20 meq PO QAM [facility] Stop: 02/27/25 08:59 Last Admin: 02/02/25 09:19 Dose: 20 meq Senna/Docusate Sodium (Docusate Sodium/Senna 50/8.6mg Tab) 2 tab PO BID PRN PRN Reason: Constipation Stop: 02/27/25 01:22 Last Admin: 02/02/25 09:19 Dose: 2 tab Sertraline HCl (Sertraline Hcl 50 Mg Tablet) 25 mg PO QAM [facility] Stop: 02/27/25 08:59 Last Admin: 02/02/25 09:20 Dose: 25 mg Tramadol HCl (Tramadol Hcl 50 Mg Tablet) 50 mg PO Q6 PRN PRN Reason: pain,moderate Stop: 02/27/25 01:22 Last Admin: 02/02/25 13:07 Dose: 50 mg Voriconazole (Voriconazole 200 Mg Tablet) 200 mg PO Q12H [facility] Stop: 02/27/25 08:59 Last Admin: 02/02/25 21:17 Dose: 200 mg
[2025-02-03] MEDS: SODIUM CHLORIDE 0.9% 500 ML IV SCH (10:59)
--- NOTE | 2025-02-03 11:13 | XRay Report ---
KUB HISTORY: Acute generalized abdominal pain with nausea and vomiting vomiting COMPARISON: CT abdomen and pelvis 12/19/2024 FINDINGS: Nonobstructive bowel gas pattern. Mild colonic fecal retention. Calculi within the right UP J redemonstrated measuring up to 3 cm. No pneumoperitoneum or pneumatosis. No fracture. IMPRESSION: 1. Calculi within the right UPJ redemonstrated. 2. Nonobstructive bowel gas pattern. ACT 112: Negative or not required by law. The above report was generated using voice recognition software. It may contain grammatical, syntax o r spelling errors. Electronically signed by: Mitesh Ramos M.D. 02/03/2025 11:11 AM
[2025-02-03 12:00] LABS: Anion Gap 12.0 (3-11); Blood Urea Nitrogen 15.0 mg/dl (6-23); Calcium 8.6 mg/dl (8.6-10.3); Carbon Dioxide 21.0 mmol/L (21-32); Chloride 104.0 mmol/L (98-107); Creatinine Clr Calc Pharmacy 67.7 ml/min; Glucose 122.0 mg/dl (70-99(Fasting)); Potassium 3.9 mmol/L (3.5-5.1); Sodium 137.0 mmol/L (136-145)
[2025-02-03] MEDS: PROMETHAZINE 6.25 MG/50.25 ML BAG IV PRN (13:50)
--- NOTE | 2025-02-04 08:02 | Hospitalist Progress Note ---
Date of Service February 04, 2025 Assessment & Plan (1) Fracture of thoracic vertebra: (2) Fracture of lumbar vertebra: (3) Tachycardia: (4) Nausea and vomiting: Plan Patient is a 79y/o F with PMHx significant for HTN, HLD, DMII, history of pericardial effusion, history of Staph epidermidis bacteremia and osteomyelitis of the lumbar vertebrae with bilateral iliopsoas abscesses s/p IR drainage and IV ABX, PSVT s/p ablation in 2004, GERD with esophagitis, osteoarthritis, in somnia, sacroiliitis, AML (not currently undergoing chemotherapy; on infectious prophylaxis with acyclovir/voriconazole) and lumbar compression fractures who presented to the ED on 01/27/25 due to back pain ISO recurrent falls. Recurrent mechanical falls Acute T11-T12 vertebral body compression fractures Acute L4 fracture involving the superior endplate & L2 central superior endplate fracture Healing subacute nondisplaced fracture of the L femur Pt reports two falls recently, both due to walker getting stuck which caused her to lose her balance Admitting imaging studies revealed acute T11-T12 vertebral body compression fractures, an acute L4 fracture involving the superior endplate and an acute L2 central superior endplate fracture Ortho spine evaluated and recommending conservative management, no surgical intervention required Continue PRN analgesia, PT/OT, TLSO brace Four SNFs have declined patient-> previous admission with prolonged stay due to placement issues and ultimately dc to home with HH where she fell again, daughters not agreeable to dc to home given this Stable for DC when placement available CM following and will need to place new referrals Nausea with vomiting-> resolved Tachycardia Patient had brief nausea and vomiting that has resolved Continues with tachycardia although appears to be relatively chronic for patient EKG showed sinus tachycardia with PACs KUB unremarkable Labs unremarkable DMII: Updated Hgb A1c 4.8% this admission. Continue to monitor off meds/insulin. History of AML: Last chemo was in August 2024. Chemo on hold because of ongoing infections, recurrent hospitalizations. Follow-up with heme-onc, sees Dr. Gaines. Will continue acyclovir/voriconazole prophylaxis. Possible UTI: Urine culture positive Alloscardovia omnicolens. Patient asymptomatic. Monitor off abx. Hypertension: On amlodipine. BP stable, continue to monitor. Depression: On Zoloft and Remeron as previously recommended by psych, continue. Prolonged QTc: Continue to avoid QT-prolonging drugs as able. GERD: On Pepcid, continue. Hyperlipidemia: On statin, continue. Anemia: H/H was at baseline as of 01/29. Vit B12, folate levels WNL. Continue to monitor DVT Prophylaxis: SQ Heparin Code Status: DNR/DNI PCP: Vidal Card MD Disposition: Stable for DC once placement becomes available Patient seen in collaboration with Dr. Santana. Please see addendum. I spent a total of 50 minutes coordinating, documenting and providing care for this patient excluding time spent in the performance of separately billed services or time spent by another provider/QHP. Admission and Anticipated Discharge Date Admission Date: January 28, 2025 Supervising Physician Co-Signing Physician Notes Patient seen and examined independently. Discussed with above provider. Patient reports that she is feeling much better today. The nausea and vomiting has resolved. Patient advance to regular diet. Pain well-controlled on current medication. Continue PT OT. Case management on board for placement I have reviewed the advanced practitioner's documentation, and I agree with, and take responsibility for the plan of care I spent a total of 20 minutes coordinating, documenting, and providing care for this patient excluding time spent in the performance of separately billed services. All of the aforementioned completed while collaborating with the assigned advanced practitioner for a full treatment plan Subjective Patient seen resting in chair Upset about her breakfast tray being incorrect and late Reports nausea and vomiting are resolved Back pain is controlled Denies dizziness, chest pain, SOB, abdominal pain, N/V/D Moving her bowels Review of Systems Review of Systems: All systems reviewed & are unremarkable except as noted in HPI & below Physical Exam Physical Exam: General/Psych: frail, sitting up in chair, NAD, conversing easily Head: normocephalic, atraumatic Eyes: normal inspection, PERRL, conjunctivae pink Neck: normal visual inspection, trachea midline Respiratory: normal respiratory effort, lungs clear to auscultation, no wheeze/rales/rhonchi, no accessory muscle use Cardiovascular: tachycardic rate and rhythm, +murmur Extremities: no cyanosis or clubbing, normal peripheral pulses, no BLE edema Abdomen/GI: normal bowel sounds, soft, nontender Neurologic/MSK: A+Ox3, motor strength 5/5, moves all extremities, TLSO brace in place Skin: no rashes, normal color, warm and dry Results & Data Results & Data Vital Signs (Past 12 Hours) Vital Signs Temp Pulse Resp BP BP Pulse Ox O2 Del Method 02/04/25 07:20 36.6 C 95 H 16 119/74 96 Room Air 02/03/25 23:12 36.6 C 100 H 18 136/80 Medications Administered Current Inpatient Medications Acetaminophen (Acetaminophen 325 Mg Tab) 650 mg PO Q4H PRN PRN Reason: pain/fever Stop: 02/27/25 01:22 Last Admin: 02/03/25 17:04 Dose: 650 mg Acyclovir (Acyclovir 400 Mg Tab) 400 mg PO BID [facility] Stop: 02/27/25 08:59 Last Admin: 02/03/25 20:29 Dose: 400 mg Amlodipine Besylate (Amlodipine Besylate 5 Mg Tab) 5 mg PO QAM [facility] Stop: 02/27/25 08:59 Last Admin: 02/03/25 11:33 Dose: 5 mg Atorvastatin Calcium (Atorvastatin 20 Mg Tab) 20 mg PO HS [facility] Stop: 02/27/25 20:59 Last Admin: 02/03/25 20:29 Dose: 20 mg Calcium Carbonate (Calcium Carbonate 500 Mg Chewable Tab) 500 mg PO Q6 PRN PRN Reason: Heartburn Stop: 02/27/25 01:29 Cyanocobalamin (Cyanocobalamin (B-12) 500 Mcg Tablet) 1,000 mcg PO QAM [facility] Stop: 02/27/25 08:59 Last Admin: 02/03/25 11:33 Dose: 1,000 mcg Famotidine (Famotidine 20 Mg Tab) 20 mg PO AMHS [facility] Stop: 02/27/25 08:59 Last Admin: 02/03/25 20:29 Dose: 20 mg Heparin Sodium (Porcine) (Heparin Sod 5,000 Unit/0.5 Ml Vial) 5,000 units SQ Q12 [facility] Stop: 02/28/25 20:59 Last Admin: 02/03/25 20:29 Dose: 5,000 units Promethazine HCl (Phenergan) 6.25 mg in 50.25 mls @ 201 mls/hr IV Q6H PRN PRN Reason: Nausea And Vomiting Stop: 02/28/25 05:21 Last Infusion: 02/03/25 15:00 Dose: Infused Lactobacillus Acidophilus (Advanced Probiotic 625 Mg Capsule) 1,250 mg PO DAILY [facility] Stop: 02/27/25 08:59 Last Admin: 02/03/25 11:33 Dose: 1,250 mg Lidocaine (Lidocaine 5% 1 Patch) 1 patch TD DAILY PRN PRN Reason: low back pain Stop: 02/27/25 01:22 Lorazepam (Lorazepam 0.5 Mg Tab) 0.25 mg PO HS PRN PRN Reason: Anxiety Stop: 02/27/25 01:22 Melatonin (Melatonin 3 Mg Tab) 6 mg PO HS PRN PRN Reason: Insomnia Stop: 02/27/25 01:30 Last Admin: 01/29/25 23:13 Dose: 6 mg Mirtazapine (Mirtazapine Tab 15 Mg Tab) 30 mg PO HS [facility] Stop: 02/27/25 20:59 Last Admin: 02/03/25 20:29 Dose: 30 mg Miscellaneous (Remove Lidoderm Patch) 1 each N/A DAILY@2100 [facility] Stop: 02/27/25 20:59 Last Admin: 02/03/25 20:29 Dose: 1 each Polyethylene Glycol (Polyethylene (Miralax) 17 Gm Pack) 17 gm PO DAILY PRN PRN Reason: Constipation Stop: 02/27/25 01:22 Potassium Chloride (Potassium Chloride Crtab 20 Meq Tabcr) 20 meq PO QAM [facility] Stop: 02/27/25 08:59 Last Admin: 02/03/25 11:33 Dose: 20 meq Senna/Docusate Sodium (Docusate Sodium/Senna 50/8.6mg Tab) 2 tab PO BID PRN PRN Reason: Constipation Stop: 02/27/25 01:22 Last Admin: 02/02/25 09:19 Dose: 2 tab Sertraline HCl (Sertraline Hcl 50 Mg Tablet) 25 mg PO QAM [facility] Stop: 02/27/25 08:59 Last Admin: 02/03/25 11:34 Dose: 25 mg Tramadol HCl (Tramadol Hcl 50 Mg Tablet) 50 mg PO Q6 PRN PRN Reason: pain,moderate Stop: 02/27/25 01:22 Last Admin: 02/03/25 22:21 Dose: 50 mg Voriconazole (Voriconazole 200 Mg Tablet) 200 mg PO Q12H [facility] Stop: 02/27/25 08:59 Last Admin: 02/03/25 22:21 Dose: 200 mg
[2025-02-04] MEDS ORDERED: METOCLOPRAMIDE HCL INJ 5 MG/ML 2 ML VIAL IV PRN (13:42)
--- NOTE | 2025-02-05 06:03 | Electrocardiogram Report ---
Test Reason : Blood Pressure : */* mmHG Vent. Rate : 105 BPM Atrial Rate : 105 BPM P-R Int : 124 ms QRS Dur : 124 ms QT Int : 380 ms P-R-T Axes : 35 -11 -69 degrees QTcB Int : 502 ms Sinus tachycardia with Premature atrial complexes Right bundle branch block T wave abnormality, consider inferolateral ischemia Abnormal ECG When compared with ECG of 28-Jan-2025 08:53, Premature atrial complexes are now Present Confirmed by Mohsen Abraham ([id number]) on 02/05/2025 6:02:57 AM Referred By: REFERRED SELF Confirmed By: Mohsen Abraham
--- NOTE | 2025-02-05 12:50 | Hospitalist Progress Note ---
Date of Service February 05, 2025 Assessment & Plan (1) Fracture of thoracic vertebra: (2) Fracture of lumbar vertebra: (3) Tachycardia: (4) Nausea and vomiting: Plan Patient is a 79y/o F with PMHx significant for HTN, HLD, DMII, history of pericardial effusion, history of Staph epidermidis bacteremia and osteomyelitis of the lumbar vertebrae with bilateral iliopsoas abscesses s/p IR drainage and IV ABX, PSVT s/p ablation in 2004, GERD with esophagitis, osteoarthritis, in somnia, sacroiliitis, AML (not currently undergoing chemotherapy; on infectious prophylaxis with acyclovir/voriconazole) and lumbar compression fractures who presented to the ED on 01/27/25 due to back pain ISO recurrent falls. Recurrent mechanical falls Acute T11-T12 vertebral body compression fractures Acute L4 fracture involving the superior endplate & L2 central superior endplate fracture Healing subacute nondisplaced fracture of the L femur Pt reports two falls recently, both due to walker getting stuck which caused her to lose her balance Admitting imaging studies revealed acute T11-T12 vertebral body compression fractures, an acute L4 fracture involving the superior endplate and an acute L2 central superior endplate fracture Ortho spine evaluated and recommending conservative management, no surgical intervention required Continue PRN analgesia, PT/OT, TLSO brace Four SNFs have declined patient-> previous admission with prolonged stay due to placement issues and ultimately dc to home with HH where she fell again, daughters not agreeable to dc to home given this Stable for DC when placement available CM following and will need to place new referrals Nausea with vomiting-> resolved Tachycardia Patient had brief nausea and vomiting that has resolved Continues with tachycardia although appears to be relatively chronic for patient EKG showed sinus tachycardia with PACs KUB unremarkable Labs unremarkable DMII: Updated Hgb A1c 4.8% this admission. Continue to monitor off meds/insulin. History of AML: Last chemo was in August 2024. Chemo on hold because of ongoing infections, recurrent hospitalizations. Follow-up with heme-onc, sees Dr. Gaines. Will continue acyclovir/voriconazole prophylaxis. Possible UTI: Urine culture positive Alloscardovia omnicolens. Patient asymptomatic. Monitor off abx. Hypertension: On amlodipine. BP stable, continue to monitor. Depression: On Zoloft and Remeron as previously recommended by psych, continue. Prolonged QTc: Continue to avoid QT-prolonging drugs as able. GERD: On Pepcid, continue. Hyperlipidemia: On statin, continue. Anemia: H/H was at baseline as of 01/29. Vit B12, folate levels WNL. Continue to monitor DVT Prophylaxis: SQ Heparin Code Status: DNR/DNI PCP: Vidal Card MD Disposition: Stable for DC once placement becomes available Please note the above document was generated using voice recognition software. It may contain grammatical, syntax or spelling errors. Any formal questions or concerns about the content, text or information contained within the body of this dictation should be directly addressed to the provider for clarification Admission and Anticipated Discharge Date Admission Date: January 28, 2025 Subjective Patient seen and examined at bedside. She reports that she is doing much better. Pain is well-controlled; tolerating diet without any issues. No significant events overnight Review of Systems Review of Systems: All systems reviewed & are unremarkable except as noted in Subjective Physical Exam Physical Exam: General/Psych: frail, sitting up in chair, NAD, conversing easily Respiratory: normal respiratory effort, lungs clear to auscultation, no wheeze/rales/rhonchi, no accessory muscle use Cardiovascular: tachycardic rate and rhythm, +murmur Extremities: no cyanosis or clubbing, normal peripheral pulses, no BLE edema Abdomen/GI: normal bowel sounds, soft, nontender Neurologic/MSK: A+Ox3, motor strength 5/5, moves all extremities, TLSO brace in place Skin: no rashes, normal color, warm and dry Results & Data Results & Data Vital Signs (Past 12 Hours) Vital Signs Temp Pulse Resp BP Pulse Ox O2 Del Method 02/05/25 07:07 36.9 C 92 H 16 110/65 94 Room Air
--- NOTE | 2025-02-06 12:37 | Hospitalist Progress Note ---
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 Recurrent mechanical falls Acute T11-T12 vertebral body compression fractures Acute L4 fracture involving the superior endplate & L2 central superior endplate fracture Healing subacute nondisplaced fracture of the L femur Pt reports two falls recently, both due to walker getting stuck which caused her to lose her balance Admitting imaging studies revealed acute T11-T12 vertebral body compression fractures, an acute L4 fracture involving the superior endplate and an acute L2 central superior endplate fracture Ortho spine evaluated and recommending conservative management, no surgical intervention required Continue PRN analgesia, PT/OT, TLSO brace Four SNFs have declined patient-> previous admission with prolonged stay due to placement issues and ultimately dc to home with HH where she fell again, daughters not agreeable to dc to home given this Stable for DC when placement available CM following and will need to place new referrals Nausea with vomiting-> resolved Tachycardia Patient had brief nausea and vomiting that has resolved Continues with tachycardia although appears to be relatively chronic for patient EKG showed sinus tachycardia with PACs KUB unremarkable Labs unremarkable DMII: Updated Hgb A1c 4.8% this admission. Continue to monitor off meds/insulin. History of AML: Last chemo was in August 2024. Chemo on hold because of ongoing infections, recurrent hospitalizations. Follow-up with heme-onc, sees Dr. Gaines. Will continue acyclovir/voriconazole prophylaxis. Possible UTI: Urine culture positive Alloscard[facility]ia omnicolens. Patient asymptomatic. Monitor off abx. Hypertension: On amlodipine. BP stable, continue to monitor. Depression: On Zoloft and Remeron as previously recommended by psych, continue. Prolonged QTc: Continue to avoid QT-prolonging drugs as able. GERD: On Pepcid, continue. Hyperlipidemia: On statin, continue. Anemia: H/H was at baseline as of 01/29. Vit B12, folate levels WNL. Continue to monitor DVT Prophylaxis: SQ Heparin Code Status: DNR/DNI PCP: Vidal Card MD Disposition: Stable for DC once placement becomes available Please note the above document was generated using voice recognition software. It may contain grammatical, syntax or spelling errors. Any formal questions or concerns about the content, text or information contained within the body of this dictation should be directly addressed to the provider for clarification Admission and Anticipated Discharge Date Admission Date: January 28, 2025 Subjective Patient seen and examined at bedside. She is lying on the bed comfortably; denies fever, chills, chest pain, shortness of breath. Reports that the lower back pain is well-controlled on current medication. Review of Systems Review of Systems: All systems reviewed & are unremarkable except as noted in Subjective Physical Exam Physical Exam: General/Psych: comfortable; not in any distress Respiratory: normal respiratory effort, lungs clear to auscultation, no wheeze/rales/rhonchi, no accessory muscle use Cardiovascular: tachycardic rate and rhythm, +murmur Extremities: no cyanosis or clubbing, normal peripheral pulses, no BLE edema Abdomen/GI: normal bowel sounds, soft, nontender Neurologic/MSK: A+Ox3, motor strength 5/5, moves all extremities, TLSO brace in place Skin: no rashes, normal color, warm and dry Results & Data Results & Data Vital Signs (Past 12 Hours) Vital Signs Temp Pulse Resp BP Pulse Ox O2 Del Method 02/06/25 07:09 36.7 C 92 H 16 114/71 95 Room Air
--- NOTE | 2025-02-07 13:06 | Hospitalist Progress Note ---
Date of Service February 07, 2025 Assessment & Plan (1) Fracture of thoracic vertebra: (2) Fracture of lumbar vertebra: (3) Tachycardia: (4) Nausea and vomiting: Plan Patient is a 79y/o F with PMHx significant for HTN, HLD, DMII, history of pericardial effusion, history of Staph epidermidis bacteremia and osteomyelitis of the lumbar vertebrae with bilateral iliopsoas abscesses s/p IR drainage and IV ABX, PSVT s/p ablation in 2004, GERD with esophagitis, osteoarthritis, in somnia, sacroiliitis, AML (not currently undergoing chemotherapy; on infectious prophylaxis with acyclovir/voriconazole) and lumbar compression fractures who presented to the ED on 01/27/25 due to back pain ISO recurrent falls. Recurrent mechanical falls Acute T11-T12 vertebral body compression fractures Acute L4 fracture involving the superior endplate & L2 central superior endplate fracture Healing subacute nondisplaced fracture of the L femur Pt reports two falls recently, both due to walker getting stuck which caused her to lose her balance Admitting imaging studies revealed acute T11-T12 vertebral body compression fractures, an acute L4 fracture involving the superior endplate and an acute L2 central superior endplate fracture Ortho spine evaluated and recommending conservative management, no surgical intervention required Continue PRN analgesia, PT/OT, TLSO brace Four SNFs have declined patient-> previous admission with prolonged stay due to placement issues and ultimately dc to home with HH where she fell again, daughters not agreeable to dc to home given this Stable for DC when placement available CM following and will need to place new referrals Nausea with vomiting-> resolved Tachycardia Patient had brief nausea and vomiting that has resolved Continues with tachycardia although appears to be relatively chronic for patient EKG showed sinus tachycardia with PACs KUB unremarkable Labs unremarkable DMII: Updated Hgb A1c 4.8% this admission. Continue to monitor off meds/insulin. History of AML: Last chemo was in August 2024. Chemo on hold because of ongoing infections, recurrent hospitalizations. Follow-up with heme-onc, sees Dr. Gaines. Will continue acyclovir/voriconazole prophylaxis. Possible UTI: Urine culture positive Alloscard[facility] omnicolens. Patient asymptomatic. Monitor off abx. Hypertension: On amlodipine. BP stable, continue to monitor. Depression: On Zoloft and Remeron as previously recommended by psych, continue. Prolonged QTc: Continue to avoid QT-prolonging drugs as able. GERD: On Pepcid, continue. Hyperlipidemia: On statin, continue. Anemia: H/H was at baseline as of 01/29. Vit B12, folate levels WNL. Continue to monitor DVT Prophylaxis: SQ Heparin Code Status: DNR/DNI PCP: Vidal Card MD Disposition: Stable for DC once placement becomes available Please note the above document was generated using voice recognition software. It may contain grammatical, syntax or spelling errors. Any formal questions or concerns about the content, text or information contained within the body of this dictation should be directly addressed to the provider for clarification Admission and Anticipated Discharge Date Admission Date: January 28, 2025 Subjective Patient seen and examined at bedside. She is comfortable; not in distress. Denies any pain or discomfort Reports good appetite. Review of Systems Review of Systems: All systems reviewed & are unremarkable except as noted in Subjective Physical Exam Physical Exam: General/Psych: comfortable; not in any distress Respiratory: normal respiratory effort, lungs clear to auscultation, no wheeze/rales/rhonchi, no accessory muscle use Cardiovascular: tachycardic rate and rhythm, +murmur Extremities: no cyanosis or clubbing, normal peripheral pulses, no BLE edema Abdomen/GI: normal bowel sounds, soft, nontender Neurologic/MSK: A+Ox3, motor strength 5/5, moves all extremities, TLSO brace in place Skin: no rashes, normal color, warm and dry Results & Data Results & Data Vital Signs (Past 12 Hours) Vital Signs Temp Pulse Resp BP Pulse Ox O2 Del Method 02/07/25 08:40 36.8 C 100 H 16 108/69 96 Room Air 02/07/25 04:01 36.4 C 100 H 18 116/67 95 Room Air
--- NOTE | 2025-02-08 12:40 | Hospitalist Progress Note ---
Date of Service February 08, 2025 Assessment & Plan (1) Fracture of thoracic vertebra: (2) Fracture of lumbar vertebra: (3) Tachycardia: (4) Nausea and vomiting: Plan Patient is a 79y/o F with PMHx significant for HTN, HLD, DMII, history of pericardial effusion, history of Staph epidermidis bacteremia and osteomyelitis of the lumbar vertebrae with bilateral iliopsoas abscesses s/p IR drainage and IV ABX, PSVT s/p ablation in 2004, GERD with esophagitis, osteoarthritis, in somnia, sacroiliitis, AML (not currently undergoing chemotherapy; on infectious prophylaxis with acyclovir/voriconazole) and lumbar compression fractures who presented to the ED on 01/27/25 due to back pain ISO recurrent falls. Recurrent mechanical falls Acute T11-T12 vertebral body compression fractures Acute L4 fracture involving the superior endplate & L2 central superior endplate fracture Healing subacute nondisplaced fracture of the L femur Pt reports two falls recently, both due to walker getting stuck which caused her to lose her balance Admitting imaging studies revealed acute T11-T12 vertebral body compression fractures, an acute L4 fracture involving the superior endplate and an acute L2 central superior endplate fracture Ortho spine evaluated and recommending conservative management, no surgical intervention required Continue PRN analgesia, PT/OT, TLSO brace Four SNFs have declined patient-> previous admission with prolonged stay due to placement issues and ultimately dc to home with HH where she fell again, daughters not agreeable to dc to home given this Stable for DC when placement available CM following and will need to place new referrals Nausea with vomiting-> resolved Tachycardia Patient had brief nausea and vomiting that has resolved Continues with tachycardia although appears to be relatively chronic for patient EKG showed sinus tachycardia with PACs KUB unremarkable Labs unremarkable DMII: Updated Hgb A1c 4.8% this admission. Continue to monitor off meds/insulin. History of AML: Last chemo was in August 2024. Chemo on hold because of ongoing infections, recurrent hospitalizations. Follow-up with heme-onc, sees Dr. Gaines. Will continue acyclovir/voriconazole prophylaxis. Possible UTI: Urine culture positive Alloscard[facility] omnicolens. Patient asymptomatic. Monitor off abx. Hypertension: On amlodipine. BP stable, continue to monitor. Depression: On Zoloft and Remeron as previously recommended by psych, continue. Prolonged QTc: Continue to avoid QT-prolonging drugs as able. GERD: On Pepcid, continue. Hyperlipidemia: On statin, continue. Anemia: H/H was at baseline as of 01/29. Vit B12, folate levels WNL. Continue to monitor DVT Prophylaxis: SQ Heparin Code Status: DNR/DNI PCP: Vidal Card MD Disposition: Stable for DC once placement becomes available Please note the above document was generated using voice recognition software. It may contain grammatical, syntax or spelling errors. Any formal questions or concerns about the content, text or information contained within the body of this dictation should be directly addressed to the provider for clarification Admission and Anticipated Discharge Date Admission Date: January 28, 2025 Subjective Patient seen and examined at bedside. She is sitting up on the chair comfortably; not in distress. Denies any pain or discomfort. No significant events overnight Review of Systems Review of Systems: All systems reviewed & are unremarkable except as noted in Subjective Physical Exam Physical Exam: General/Psych: comfortable; not in any distress Respiratory: normal respiratory effort, lungs clear to auscultation, no wheeze/r ales/rhonchi, no accessory muscle use Cardiovascular: tachycardic rate and rhythm, +murmur Extremities: no cyanosis or clubbing, normal peripheral pulses, no BLE edema Abdomen/GI: normal bowel sounds, soft, nontender Neurologic/MSK: A+Ox3, motor strength 5/5, moves all extremities, TLSO brace in place Skin: no rashes, normal color, warm and dry Results & Data Results & Data Vital Signs (Past 12 Hours) Vital Signs Temp Pulse Resp BP Pulse Ox O2 Del Method 02/08/25 07:20 36.8 C 96 H 16 129/78 96 Room Air
--- NOTE | 2025-02-09 13:07 | Hospitalist Progress Note ---
Date of Service February 09, 2025 Assessment & Plan (1) Fracture of thoracic vertebra: (2) Fracture of lumbar vertebra: (3) Tachycardia: (4) Nausea and vomiting: Plan Patient is a 79y/o F with PMHx significant for HTN, HLD, DMII, history of pericardial effusion, history of Staph epidermidis bacteremia and osteomyelitis of the lumbar vertebrae with bilateral iliopsoas abscesses s/p IR drainage and IV ABX, PSVT s/p ablation in 2004, GERD with esophagitis, osteoarthritis, in somnia, sacroiliitis, AML (not currently undergoing chemotherapy; on infectious prophylaxis with acyclovir/voriconazole) and lumbar compression fractures who presented to the ED on 01/27/25 due to back pain ISO recurrent falls. Recurrent mechanical falls Acute T11-T12 vertebral body compression fractures Acute L4 fracture involving the superior endplate & L2 central superior endplate fracture Healing subacute nondisplaced fracture of the L femur Pt reports two falls recently, both due to walker getting stuck which caused her to lose her balance Admitting imaging studies revealed acute T11-T12 vertebral body compression fractures, an acute L4 fracture involving the superior endplate and an acute L2 central superior endplate fracture Ortho spine evaluated and recommending conservative management, no surgical intervention required Continue PRN analgesia, PT/OT, TLSO brace Four SNFs have declined patient-> previous admission with prolonged stay due to placement issues and ultimately dc to home with HH where she fell again, daughters not agreeable to dc to home given this Stable for DC when placement available CM following Nausea with vomiting-> resolved Tachycardia Patient had brief nausea and vomiting that has resolved Continues with tachycardia although appears to be relatively chronic for patient EKG showed sinus tachycardia with PACs KUB unremarkable Labs unremarkable DMII: Updated Hgb A1c 4.8% this admission. Continue to monitor off meds/insulin. History of AML: Last chemo was in August 2024. Chemo on hold because of ongoing infections, recurrent hospitalizations. Follow-up with heme-onc, sees Dr. Gaines. Will continue acyclovir/voriconazole prophylaxis. Possible UTI: Urine culture positive Allosc[employer] omnicolens. Patient asymptomatic. Monitor off abx. Hypertension: On amlodipine. BP stable, continue to monitor. Depression: On Zoloft and Remeron as previously recommended by psych, continue. Prolonged QTc: Continue to avoid QT-prolonging drugs as able. GERD: On Pepcid, continue. Hyperlipidemia: On statin, continue. Anemia: H/H was at baseline as of 01/29. Vit B12, folate levels WNL. Continue to monitor DVT Prophylaxis: SQ Heparin Code Status: DNR/DNI PCP: Vidal Card MD Disposition: Stable for DC once placement becomes available Please note the above document was generated using voice recognition software. It may contain grammatical, syntax or spelling errors. Any formal questions or concerns about the content, text or information contained within the body of this dictation should be directly addressed to the provider for clarification Admission and Anticipated Discharge Date Admission Date: January 28, 2025 Subjective Patient seen and examined at bedside. She reports some pain in her right paraspinal muscles today. Able to work with physical therapy. No significant events overnight Review of Systems Review of Systems: All systems reviewed & are unremarkable except as noted in Subjective Physical Exam Physical Exam: General/Psych: comfortable; not in any distress Respiratory: normal respiratory effort, lungs clear to auscultation, no wheeze/rales/rhonchi, no accessory muscle use Cardiovascular: tachycardic rate and rhythm, +murmur Extremities: no cyanosis or clubbing, normal peripheral pulses, no BLE edema Abdomen/GI: normal bowel sounds, soft, nontender Neurologic/MSK: A+Ox3, motor strength 5/5, moves all extremities, TLSO brace in place Skin: no rashes, normal color, warm and dry Results & Data Results & Data Vital Signs (Past 12 Hours) Vital Signs Temp Pulse Resp BP Pulse Ox O2 Del Method 02/09/25 08:11 36.6 C 100 H 18 134/83 97 Room Air
--- NOTE | 2025-02-10 16:17 | Hospitalist Progress Note ---
Date of Service February 10, 2025 Assessment & Plan (1) Fracture of thoracic vertebra: (2) Fracture of lumbar vertebra: (3) Tachycardia: (4) Nausea and vomiting: Plan Patient is a 79y/o F with PMHx significant for HTN, HLD, DMII, history of pericardial effusion, history of Staph epidermidis bacteremia and osteomyelitis of the lumbar vertebrae with bilateral iliopsoas abscesses s/p IR drainage and IV ABX, PSVT s/p ablation in 2004, GERD with esophagitis, osteoarthritis, in somnia, sacroiliitis, AML (not currently undergoing chemotherapy; on infectious prophylaxis with acyclovir/voriconazole) and lumbar compression fractures who presented to the ED on 01/27/25 due to back pain ISO recurrent falls. Recurrent mechanical falls Acute T11-T12 vertebral body compression fractures Acute L4 fracture involving the superior endplate & L2 central superior endplate fracture Healing subacute nondisplaced fracture of the L femur Pt reports two falls recently, both due to walker getting stuck which caused her to lose her balance Admitting imaging studies revealed acute T11-T12 vertebral body compression fractures, an acute L4 fracture involving the superior endplate and an acute L2 central superior endplate fracture Ortho spine evaluated and recommending conservative management, no surgical intervention required Continue PRN analgesia, PT/OT, TLSO brace Four SNFs have declined patient-> previous admission with prolonged stay due to placement issues and ultimately dc to home with HH where she fell again, daughters not agreeable to dc to home given this Stable for DC when placement available CM following Nausea with vomiting-> resolved Tachycardia Patient had brief nausea and vomiting that has resolved Continues with tachycardia although appears to be relatively chronic for patient EKG showed sinus tachycardia with PACs KUB unremarkable Labs unremarkable DMII: Updated Hgb A1c 4.8% this admission. Continue to monitor off meds/insulin. History of AML: Last chemo was in August 2024. Chemo on hold because of ongoing infections, recurrent hospitalizations. Follow-up with heme-onc, sees Dr. Gaines. Will continue acyclovir/voriconazole prophylaxis. Possible UTI: Urine culture positive Alloscard[place] omnicolens. Patient asymptomatic. Monitor off abx. Hypertension: On amlodipine. BP stable, continue to monitor. Depression: On Zoloft and Remeron as previously recommended by psych, continue. Prolonged QTc: Continue to avoid QT-prolonging drugs as able. GERD: On Pepcid, continue. Hyperlipidemia: On statin, continue. Anemia: H/H was at baseline as of 01/29. Vit B12, folate levels WNL. Continue to monitor DVT Prophylaxis: SQ Heparin Code Status: DNR/DNI PCP: Vidal Card MD Disposition: Stable for DC once placement becomes available Please note the above document was generated using voice recognition software. It may contain grammatical, syntax or spelling errors. Any formal questions or concerns about the content, text or information contained within the body of this dictation should be directly addressed to the provider for clarification Admission and Anticipated Discharge Date Admission Date: January 28, 2025 Subjective Patient seen and examined at bedside. No significant events overnight Pt reports feeling better, denies issues. Physical Exam Physical Exam: General- Not in distress Head- atraumatic Eyes- PERRL. ENT- oropharynx clear Neck- supple, no JVD. Lungs- clear to auscultation no wheezing or crackles Heart- regular rhythm; no murmur, no gallop. Abdomen- normal bowel sounds, soft, nontender, no distension Extremities- mild pretibial edema, noerythema seen Neuro- alert, oriented; PERRL, no facial palsy; no dysarthria; moves extremities Results & Data Results & Data Vital Signs (Past 12 Hours) Vital Signs Temp Pulse Resp BP Pulse Ox O2 Del Method 02/10/25 14:29 36.9 C 92 H 16 120/75 92 Room Air 02/10/25 07:31 36.8 C 106 H 16 121/76 97 Room Air
--- NOTE | 2025-02-11 16:10 | Hospitalist Progress Note ---
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 Recurrent mechanical falls Acute T11-T12 vertebral body compression fractures Acute L4 fracture involving the superior endplate & L2 central superior endplate fracture Healing subacute nondisplaced fracture of the L femur Pt reports two falls recently, both due to walker getting stuck which caused her to lose her balance Admitting imaging studies revealed acute T11-T12 vertebral body compression fractures, an acute L4 fracture involving the superior endplate and an acute L2 central superior endplate fracture Ortho spine evaluated and recommending conservative management, no surgical intervention required Continue PRN analgesia, PT/OT, TLSO brace Four SNFs have declined patient-> previous admission with prolonged stay due to placement issues and ultimately dc to home with HH where she fell again, daughters not agreeable to dc to home given this Stable for DC when placement available CM following CM reached out that patient needs peer to peer, peer to peer line called, awaiting callback. Nausea with vomiting-> resolved Tachycardia Patient had brief nausea and vomiting that has resolved Continues with tachycardia although appears to be relatively chronic for patient EKG showed sinus tachycardia with PACs KUB unremarkable Labs unremarkable DMII: Updated Hgb A1c 4.8% this admission. Continue to monitor off meds/insulin. History of AML: Last chemo was in August 2024. Chemo on hold because of ongoing infections, recurrent hospitalizations. Follow-up with heme-onc, sees Dr. Gaines. Will continue acyclovir/voriconazole prophylaxis. Possible UTI: Urine culture positive Alloscardovia omnicolens. Patient asymptomatic. Monitor off abx. Hypertension: On amlodipine. BP stable, continue to monitor. Depression: On Zoloft and Remeron as previously recommended by psych, continue. Prolonged QTc: Continue to avoid QT-prolonging drugs as able. GERD: On Pepcid, continue. Hyperlipidemia: On statin, continue. Anemia: H/H was at baseline as of 01/29. Vit B12, folate levels WNL. Continue to monitor DVT Prophylaxis: SQ Heparin Code Status: DNR/DNI PCP: Vidal Card MD Disposition: Stable for DC once placement becomes available Please note the above document was generated using voice recognition software. It may contain grammatical, syntax or spelling errors. Any formal questions or concerns about the content, text or information contained within the body of this dictation should be directly addressed to the provider for clarification Admission and Anticipated Discharge Date Admission Date: January 28, 2025 Subjective Patient seen and examined at bedside. No significant events overnight Pt reports feeling better, denies issues. Physical Exam Physical Exam: General- Not in distress Head- atraumatic Eyes- PERRL. ENT- oropharynx clear Neck- supple, no JVD. Lungs- clear to auscultation no wheezing or crackles Heart- regular rhythm; no murmur, no gallop. Abdomen- normal bowel sounds, soft, nontender, no distension Extremities- mild pretibial edema, noerythema seen Neuro- alert, oriented; PERRL, no facial palsy; no dysarthria; moves extremities Results & Data Results & Data Vital Signs (Past 12 Hours) Vital Signs Temp Pulse Resp BP Pulse Ox O2 Del Method 02/11/25 15:24 36.7 C 103 H 18 105/71 95 Room Air 02/11/25 07:01 36.8 C 94 H 16 119/73 97 Room Air
--- NOTE | 2025-02-12 12:21 | Hospitalist Progress Note ---
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 Recurrent mechanical falls Acute T11-T12 vertebral body compression fractures Acute L4 fracture involving the superior endplate & L2 central superior endplate fracture Healing subacute nondisplaced fracture of the L femur Pt reports two falls recently, both due to walker getting stuck which caused her to lose her balance Admitting imaging studies revealed acute T11-T12 vertebral body compression fractures, an acute L4 fracture involving the superior endplate and an acute L2 central superior endplate fracture Ortho spine evaluated and recommending conservative management, no surgical intervention required Continue PRN analgesia, PT/OT, TLSO brace Four SNFs have declined patient-> previous admission with prolonged stay due to placement issues and ultimately dc to home with HH where she fell again, daughters not agreeable to dc to home given this Stable for DC when placement available CM following P2P done 02/11/25, insurance accepted. Nausea with vomiting-> resolved Tachycardia Patient had brief nausea and vomiting that has resolved Continues with tachycardia although appears to be relatively chronic for patient EKG showed sinus tachycardia with PACs KUB unremarkable Labs unremarkable DMII: Updated Hgb A1c 4.8% this admission. Continue to monitor off meds/insulin. History of AML: Last chemo was in August 2024. Chemo on hold because of ongoing infections, recurrent hospitalizations. Follow-up with heme-onc, sees Dr. Gaines. Will continue acyclovir/voriconazole prophylaxis. Possible UTI: Urine culture positive Alloscardovia omnicolens. Patient asymptomatic. Monitor off abx. Hypertension: On amlodipine. BP stable, continue to monitor. Depression: On Zoloft and Remeron as previously recommended by psych, continue. Prolonged QTc: Continue to avoid QT-prolonging drugs as able. GERD: On Pepcid, continue. Hyperlipidemia: On statin, continue. Anemia: H/H was at baseline as of 01/29. Vit B12, folate levels WNL. Continue to monitor DVT Prophylaxis: SQ Heparin Code Status: DNR/DNI PCP: Vidal Card MD Disposition: Stable for DC once placement becomes available Please note the above document was generated using voice recognition software. It may contain grammatical, syntax or spelling errors. Any formal questions or concerns about the content, text or information contained within the body of this dictation should be directly addressed to the provider for clarification Admission and Anticipated Discharge Date Admission Date: January 28, 2025 Subjective Patient seen and examined at bedside. No significant events overnight Pt reports feeling better, denies issues. Physical Exam Physical Exam: General- Not in distress Head- atraumatic Eyes- PERRL. ENT- oropharynx clear Neck- supple, no JVD. Lungs- clear to auscultation no wheezing or crackles Heart- regular rhythm; no murmur, no gallop. Abdomen- normal bowel sounds, soft, nontender, no distension Extremities- mild pretibial edema, noerythema seen Neuro- alert, oriented; PERRL, no facial palsy; no dysarthria; moves extremities Results & Data Results & Data Vital Signs (Past 12 Hours) Vital Signs Temp Pulse Resp BP BP Pulse Ox O2 Del Method 02/12/25 09:42 106 H 139/84 02/12/25 06:51 36.9 C 96 H 16 116/81 97 Room Air
[2025-02-13] MEDS: LIDOCAINE 5% 1 PATCH TD PRN (11:27)
--- NOTE | 2025-02-13 16:21 | Hospitalist Progress Note ---
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 Recurrent mechanical falls Acute T11-T12 vertebral body compression fractures Acute L4 fracture involving the superior endplate & L2 central superior endplate fracture Healing subacute nondisplaced fracture of the L femur Pt reports two falls recently, both due to walker getting stuck which caused her to lose her balance Admitting imaging studies revealed acute T11-T12 vertebral body compression fractures, an acute L4 fracture involving the superior endplate and an acute L2 central superior endplate fracture Ortho spine evaluated and recommending conservative management, no surgical intervention required Continue PRN analgesia, PT/OT, TLSO brace Four SNFs have declined patient-> previous admission with prolonged stay due to placement issues and ultimately dc to home with HH where she fell again, daughters not agreeable to dc to home given this Stable for DC when placement available CM following P2P done 02/11/25, insurance accepted. Nausea with vomiting-> resolved Tachycardia Patient had brief nausea and vomiting that has resolved Continues with tachycardia although appears to be relatively chronic for patient EKG showed sinus tachycardia with PACs KUB unremarkable Labs unremarkable DMII: Updated Hgb A1c 4.8% this admission. Continue to monitor off meds/insulin. History of AML: Last chemo was in August 2024. Chemo on hold because of ongoing infections, recurrent hospitalizations. Follow-up with heme-onc, sees Dr. Gaines. Will continue acyclovir/voriconazole prophylaxis. Possible UTI: Urine culture positive Alloscardovia omnicolens. Patient asymptomatic. Monitor off abx. Hypertension: On amlodipine. BP stable, continue to monitor. Depression: On Zoloft and Remeron as previously recommended by psych, continue. Prolonged QTc: Continue to avoid QT-prolonging drugs as able. GERD: On Pepcid, continue. Hyperlipidemia: On statin, continue. Anemia: H/H was at baseline as of 01/29. Vit B12, folate levels WNL. Continue to monitor DVT Prophylaxis: SQ Heparin Code Status: DNR/DNI PCP: Vidal Card MD Disposition: Stable for DC once placement becomes available Please note the above document was generated using voice recognition software. It may contain grammatical, syntax or spelling errors. Any formal questions or concerns about the content, text or information contained within the body of this dictation should be directly addressed to the provider for clarification Admission and Anticipated Discharge Date Admission Date: January 28, 2025 Subjective Patient seen and examined at bedside. No significant events overnight Pt reports feeling better, denies issues. reports some back pain today. Physical Exam Physical Exam: General- Not in distress Head- atraumatic Eyes- PERRL. ENT- oropharynx clear Neck- supple, no JVD. Lungs- clear to auscultation no wheezing or crackles Heart- regular rhythm; no murmur, no gallop. Abdomen- normal bowel sounds, soft, nontender, no distension Extremities- mild pretibial edema, noerythema seen Neuro- alert, oriented; PERRL, no facial palsy; no dysarthria; moves extremities Results & Data Results & Data Vital Signs (Past 12 Hours) Vital Signs Temp Pulse Resp BP Pulse Ox O2 Del Method 02/13/25 08:02 36.5 C 98 H 19 138/78 97 Room Air
[2025-02-13 16:24] VITALS: RESP 18
[2025-02-14 08:06] VITALS: TEMP 97.9; O2SAT 98
[2025-02-14 08:29] VITALS: BP 119/70; PULSE 87
--- NOTE | 2025-02-14 10:01 | Discharge Summary ---
Date of Service February 14, 2025 Admission HPI Per Admitting Provider 79-year-old female with past medical history significant for hypertension, diabetes, hyperlipidemia, history of pericardial effusion, history of PSVT status post ablation 2004, GERD with esophagitis, osteoarthritis of knees, history of insomnia, spinal stenosis of lumbar region, sacroiliitis, history of AML on chemotherapy with Decitabine/venetoclax last chemo was in august 2024 ,infectious prophylaxis with acyclovir, voriconazole, history of lumbar compression fracture currently living with her daughter and ambulates with a walker comes because of falls. Patient states she fell last Sunday while she was trying to go to the bathroom. She fell on the left hip region. Did not hit her head and no loss of consciousness. Since then she has pain in the left hip region. Today she fell again. No loss of consciousness and did not hit her head. Because of falls daughter brought her to the hospital. Imaging studies showing T11-T12 ,L4 and L2 compression fractures. Patient having back pain. Denies any headache. Denies dizziness. No runny nose or sore throat. No cough. No fevers. Appetite is not great. Denies any chest pain. No shortness of breath. No nausea. No abdominal pain. Normal bowel and bladder movements. No rashes. Hemodynamics are okay. In September 2024 patient was admitted for compression fracture lumbar spine vertebrae thought to be a poor surgical candidate because of pancytopenia and she was discharged to rehab. Again she was admitted end of September with bacteremia with Staph epidermidis and was treated for osteomyelitis of lumbar vertebrae and psoas muscle abscess and underwent left psoas abscess CT-guided drainage. During that admission a port was removed and she was treated with IV vancomycin for 6 to 8 weeks. She completed IV antibiotics in 11/27/2024. She was again admitted on 12/13/2024 with confusion poor appetite ,poor ambulatory status and treated for complicated UTI with 7 days of IV antibiotics. She also had large calculus of the right renal pelvis and ureteropelvic junction with associated hydro nephrosis/hydroureter and plan to follow-up with urology. After last admission patient had difficulty placement and she was discharged home with home health. Past medical history. As mentioned above. Past surgical history. Hysterectomy. Injection of the lumbosacral spine. Appendectomy. Knee meniscectomy. IR drainage of left psoas abscess, a port placement and removal. Social history. . No smoking. Alcohol wine at night as per epic. No drug use. Family history. Father had CLL. Mother had diabetes. CA. Admission Exam Per Admitting Provider General- Not in distress Head- atraumatic Eyes- PERRL. ENT- oropharynx clear Neck- supple, no JVD. Lungs- clear to auscultation no wheezing or crackles Heart- regular rhythm; no murmur, no gallop. Abdomen- normal bowel sounds, soft, nontender, no distension Extremities- mild pretibial edema, noerythema seen Neuro- alert, oriented; PERRL, no facial palsy; no dysarthria; moves extremities Principal Diagnosis Recurrent mechanical falls Acute T11-T12 vertebral body compression fractures Acute L4 fracture involving the superior endplate & L2 central superior endplate fracture Healing subacute nondisplaced fracture of the L femur Discharge Exam General- Not in distress Head- atraumatic Eyes- PERRL. ENT- oropharynx clear Neck- supple, no JVD. Lungs- clear to auscultation no wheezing or crackles Heart- regular rhythm; no murmur, no gallop. Abdomen- normal bowel sounds, soft, nontender, no distension Extremities- mild pretibial edema, noerythema seen Neuro- alert, oriented; PERRL, no facial palsy; no dysarthria; moves extremities Discharge Data Allergies Allergy/AdvReac Type Severity Reaction Status Date / Time No Known Allergies Allergy Mild Verified 01/28/25 00:04 Consultations 01/27/25 23:29 ED Decision to Admit Stat 01/28/25 09:58 Consult Orthopedic Spine Surgery Routine Ordered Studies 01/27/25 20:48 CT lumbar spine wo con Stat CT thoracic spine wo con Stat 01/27/25 23:25 MRI Lumbar Spine [MR lumbar spine wo con] Stat MRI Thoracic [MR thoracic spine wo con] Stat Hospital Course (1) Fracture of thoracic vertebra: (2) Fracture of lumbar vertebra: (3) Tachycardia: (4) Nausea and vomiting: Plan Patient is a 79y/o F with PMHx significant for HTN, HLD, DMII, history of pericardial effusion, history of Staph epidermidis bacteremia and 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 Recurrent mechanical falls Acute T11-T12 vertebral body compression fractures Acute L4 fracture involving the superior endplate & L2 central superior endplate fracture Healing subacute nondisplaced fracture of the L femur Pt reports two falls recently, both due to walker getting stuck which caused her to lose her balance Admitting imaging studies revealed acute T11-T12 vertebral body compression fractures, an acute L4 fracture involving the superior endplate and an acute L2 central superior endplate fracture Ortho spine evaluated and recommending conservative management, no surgical intervention required Continue PRN analgesia, PT/OT, TLSO brace Four SNFs have declined patient-> previous admission with prolonged stay due to placement issues and ultimately dc to home with HH where she fell again, daughters not agreeable to dc to home given this Stable for DC when placement available CM following P2P done 02/11/25, insurance accepted. Nausea with vomiting-> resolved Tachycardia Patient had brief nausea and vomiting that has resolved Continues with tachycardia although appears to be relatively chronic for patient EKG showed sinus tachycardia with PACs KUB unremarkable Labs unremarkable DMII: Updated Hgb A1c 4.8% this admission. Continue to monitor off meds/insulin. History of AML: Last chemo was in August 2024. Chemo on hold because of ongoing infections, recurrent hospitalizations. Follow-up with heme-onc, sees Dr. Gaines. Will continue acyclovir/voriconazole prophylaxis. Possible UTI: Urine culture positive Alloscardovia omnicolens. Patient asymptomatic. Monitor off abx. Hypertension: On amlodipine. BP stable, continue to monitor. Depression: On Zoloft and Remeron as previously recommended by psych, continue. Prolonged QTc: Continue to avoid QT-prolonging drugs as able. GERD: On Pepcid, continue. Hyperlipidemia: On statin, continue. Anemia: H/H was at baseline as of 01/29. Vit B12, folate levels WNL. Continue to monitor DVT Prophylaxis: SQ Heparin Code Status: DNR/DNI PCP: Vidal Card MD Patient is being discharged to SNF with following instructions at the point of discharge: Follow-up with your primary care physician within a week time and likely you will need labs CBC/CMP/magnesium/phosphorus. Follow-up with orthospine in 2 to 4 weeks time upon discharge. Continue with physical therapy, maintain TLSO brace when out of bed and during activity. Follow-up with your oncology as prior. Take your medications as prescribed. Please make sure that you are able to get your medications today by calling your pharmacy before you leave the hospital so that your treatment continuity is not broken. Please note the above document was generated using voice recognition software. It may contain grammatical, syntax or spelling errors. Any formal questions or concerns about the content, text or information contained within the body of this dictation should be directly addressed to the provider for clarification Home Health Attestation I certify that this patient is under my care and that I, or a physicians tiler's assistant working with me, had a face to-face encounter that meets the [id number] encounter requirements with this patient. The encounter with the patient was in whole, or in part, for the following medical condition, which is the primary reason for home health care (list medical condition): resumption of care; fall, compression fractures I certify that, based on my findings, the following services are medically necessary home health services: My clinical findings support the need for the above services because: OT Assess ADL Status and Restore Function w ADLs PT Assessment for Endurance / Balance / Strength PT Eval for Safety and Mobility PT Eval for Safety, Gait Training, Assistive Devices PT Gait and Balance Training, Strengthening and Safety Skilled Nsg Assessment Skilled Nsg Assess Pt Illness, Disease and Sx Monitoring S/S to Report to Provider Further, I certify that my clinical findings support that this patient is homebound (i.e. absences from home require considerable and taxing effort and are for medical reasons or yazdanism services or infrequently or of short duration when for other reasons) because: Transportation Assistance/Unable to Leave Home Unassisted Certification for Home Health Services: Based on the above findings, I certify that this patient is confined to the home and needs intermittent fci care, physical therapy and/or speech therapy or continues to need occupational therapy. The patient is under my care, and I have initiated the establishment of the plan of care. This patient will be followed by a physician who will periodically review the plan of care. Total Time Total Time Spent Total Time Spent (In Minutes): 35 Discharge Plan Discharge Items Patient Disposition: Transfer [facility] Reason For Visit: FALLS, COMPRESSION FRACTURES Discharge Diagnosis: Recurrent mechanical falls Acute T11-T12 vertebral body compression fractures Acute L4 fracture involving the superior endplate & L2 central superior endplate fracture Healing subacute nondisplaced fracture of the L femur Condition on Discharge: Good Activity: As commented below Activity Comment: Continue with physical therapy at rehab facility Non-emergency contact: Primary Care Provider Call non-emergency contact if: you have any medication questions Follow-up/Referrals: Vidal Card MD [Primary Care Provider] - Diet: Regular Addtl Attending Provider Instructions: Follow-up with your primary care physician within a week time and likely you will need labs CBC/CMP/magnesium/phosphorus. Follow-up with orthospine in 2 to 4 weeks time upon discharge. Continue with physical therapy, maintain TLSO brace when out of bed and during activity. Follow-up with your oncology as prior. Take your medications as prescribed. Please make sure that you are able to get your medications today by calling your pharmacy before you leave the hospital so that your treatment continuity is not broken. Pending Studies at Discharge: No Stand-Alone Forms: My [facility] Skilled Items Patient informed of condition?: Yes DNR: Yes Discharge Level of Care: Skilled Communicable Disease: No Discharge Prognosis: Stable Lines: None Urinary Catheter: No Medications and DC Order Prescriptions: Continued atorvastatin 20 mg Tablet 20 mg PO HS sennosides-docusate sodium [Senokot-S] 8.6-50 mg Tablet 2 tab-cap PO BID PRN (Reason: Constipation) cyanocobalamin (vitamin B-12) 1,000 mcg Tablet 1,000 mcg PO QAM amlodipine 5 mg Tablet 5 mg PO QAM acyclovir 400 mg Tablet 400 mg PO BID acetaminophen 500 mg Tablet 1,000 mg PO TID PRN (Reason: Pain) famotidine 20 mg Tablet 20 mg PO AMHS lidocaine 5 % Adhesive Patch,Medicated 1 patch TOPICAL DAILY PRN (Reason: low back pain) Rx Instructions: leave on most painful area for up to 12 hrs voriconazole 200 mg Tablet 200 mg PO Q12H Rx Instructions: administer on empty stomach, at least 1 hour before or after meal(s) potassium chloride 20 mEq Tablet Extended Release 20 meq PO QAM Probiotic 15 billion cell Capsule 1 cap PO BID melatonin 5 mg Tablet 5 mg PO HS PRN (Reason: Insomnia) mirtazapine 30 mg tablet 30 mg PO HS Qty: 30 0RF tramadol 50 mg tablet 50 mg PO Q6 PRN (Reason: pain,moderate) sertraline 25 mg tablet 25 mg PO QAM lorazepam 0.5 mg tablet 0.25 mg PO HS PRN (Reason: Anxiety) polyethylene glycol 3350 [Miralax] 17 gram/dose Powder 17 g PO QAM PRN (Reason: Constipation) calcium carbonate 500 mg calcium (1,250 mg) Tablet,Chewable 500 mg PO Q6 PRN (Reason: Heartburn) Discharge Orders: Discharge Order (Routine); Ordered 02/14/25 Ordered By: Valeria Olson Admission Data Admit Date/Time: 01/28/25 01:04 Attending Provider: Valeria Olson Admit Provider: Jose R Louie Primary Care Provider: Vidal Card Other Providers: Jose R Louie; Faraz Bergman; [facility]; [place]; [facility],; [facility]; [place]; Doc,Doc Other Interventions: Discharge Summary Assessment (RN) Last Done: 02/14/25 08:28
== END 2025-02-14 10:10 | DRG 551 ==
LOC: ED 20:08 → EDINP 01-28 01:04 → INTOOBSV 01-28 01:04 → SUATTDRO 01-28 01:04 → 2W 01-28 01:24 → 3N 01-29 23:30